=== PATIENT | female | born 1990 | race Caucasian/White ===

== ENCOUNTER 2018-09-21 22:03 | Emergency (ER) | payer SELFPAY ==
[2018-09-21 22:05] VITALS: BP 135/81; PULSE 95; RESP 18; TEMP 36.7; O2SAT 99; BMI 25.7
[2018-09-21 22:20] VITALS: BP 120/75; PULSE 84; RESP 17; O2SAT 98
--- NOTE | 2018-09-21 22:33 | ED.VISSUMM ---
- ER Visit Summary Date of Service: 09/21/18 Chief Complaint: Paresthesias History of Present Illness: The patient is a 28 F who states that after lunch today she developed tingling/numbness in her lower face bilaterally and left arm. She states that around 1900 hrs. it got worse. By where she means more intense. She denies any muscle spasms or weakness. No speech difficulties. No headaches. She is on Topamax. She takes this for bipolar disorder. The patient states she recently was on amoxicillin for a dental issue and that ended on Friday. On Friday she drank alcohol and became intoxicated. She denies any injuries that she is aware of. She is worried about a possible interaction between the 2 medications and alcohol. She denies any difficulties in the past with electrolyte imbalance. Physical Examination: Afebrile vital signs are stable Gen: Well-nourished well-developed Head: Normocephalic atraumatic Eyes: Perrl EOMI ENT: TMs clear no rhinorrhea moist mucous membranes Neck: Supple no lymphadenopathy no JVD nontender CVS: Regular rate rhythm no murmurs normal S1-S2 Respiratory: No distress clear to auscultation bilaterally chest nontender Abdomen: Soft nontender nondistended normal bowel sounds no masses Back: Nontender Extremity: Nontender no edema Skin: Normal color no rash Neuro: alert orientated ?3 CN II-XII intact normal strength reflexes gait cerebellar she reports decreased sensation of the left arm and lower mandibular region bilaterally Psych: Blunted affect normal mood Test Results: CBC is normal. Potassium is 3.2. Calcium 8.1. Not . Alcohol is negative. Liver enzymes are negative. Emergency Department Course and Treatment: It has been observed on the monitor. She is in a normal sinus rhythm. Patient received oral potassium. We will place her on 2 additional days of potassium. She is to follow-up with her primary care physician. I do not see evidence of stroke or other acute emergency would require hospitalization. Impression: 1. Facial paresthesias 2. Left arm paresthesias This note was generated with [employer] software. It may contain incorrect words, spelling, and punctuation that were not noted in review of the chart prior to signing ED Disposition - Plan for ED Patient: Disposition: Home or Assisted Living Chief Complaint: Numb/Ting Instructions: ED Paraesthesias, Discharge Instructions for Hypokalemia Prescriptions: Potassium Chloride [K-Dur] 20 meq PO DAILY #3 tab Referrals: Tangela Brito DO [Primary Care Provider] - (call in am to arrange follow up)
[2018-09-21 23:00] LABS: Internal QC Validated? YES +Cl - CLEAR BKGD; Pregnancy, Urine Negative Negative
[2018-09-21 23:03] LABS: Absolute Lymphocyte Count 3.69 X10^3/ul (0.83-4.51); Absolute Neutrophil Count 5.6 X10^3/uL (2.0-7.7); Basophil# 0.05 X10^3/uL; Basophil% 0.5 % (0-1); Eosinophil# 0.37 X10^3/uL; Eosinophils% 3.6 % (0-5); Hematocrit 40.3 % (37-47); Hemoglobin 13.6 g/dl (12.0-15.0); Lymphocyte # 3.69 X10^3/ul (4.0); Lymphocyte % 35.7 % (19-41); Mean Corp Hgb Conc 33.7 g/gl (32-36); Mean Corpuscular Volume 94.8 fL (81-99); Monocyte% 5.8 % (0-10); Neutrophil % 54.2 % (47-70); Platelet Count 244 K/mm3 (150-450); RBC Distribution Width CV 13.1 % (11.6-14.6); RBC Distribution Width SD 44.6 fl (35.1-43.9); Red Blood Count 4.25 M/mm3 (4.2-5.4); White Blood Count 10.3 K/mm3 (4.4-11.0)
[2018-09-21 23:06] LABS: POSITIVE COUNT NO; POSITIVE DIFFERENTIAL NO; POSITIVE MORPHOLOGY NO
[2018-09-21 23:32] LABS: Alcohol, Blood (Medical)-Serum < 3.0 mg/dL
[2018-09-21 23:36] LABS: ALB/GLOB Ratio 1.3 RATIO (0.9-2.4); AST(SGOT) 14 U/L (15-37); Alanine Aminotransfer ALT/SGPT 18 U/L (13-56); Albumin, Serum 3.7 g/dL (3.2-5.0); Alkaline Phosphatase 38 U/L (45-117); Anion Gap 7 (5-15); BUN 10 mg/dL (7-18); BUN/Creat Ratio 12.6 RATIO (10-20); Calcium,Total 8.1 mg/dL (8.5-10.1); Chloride 110 mmol/L (98-107); Creatinine, Serum 0.79 mg/dL (0.55-1.02); EST Glomerular Filtration Rate 92 mL/min (>60); Est Glom Filt Rate - Afr Amer 112 mL/min (>60); Estimated Creatinine Clearance 96.25 ml/min; Globulin 2.8 g/dL (2.2-4.2); Glucose 95 mg/dL (74-106); Potassium 3.2 mmol/L (3.5-5.1); Protein, Total 6.5 g/dL (6.4-8.2); Sodium Level 140 mmol/L (136-145)
[2018-09-21 23:42] VITALS: BP 111/78; PULSE 74; RESP 16; TEMP 36.6
--- OUTSIDE RECORDS SUMMARY | 2018-12-24 10:36 | XMS RPT_ITS ---
:1990 Author Organization OHIP Care Team Providers Name Role Phone Tangela Brito Primary Care Unavailable Martin Loaiza Attending Unavailable Tangela Brito Primary Care Unavailable Que Callahan Attending Unavailable PROBLEMS PROBLEMS No Problem Records FoundPROCEDURES PROCEDURES No Procedure Records FoundRESULTS RESULTS 12 LEAD ELECTROCARDIOGRAM Observed: 09/25/2018 Status: F Source: [place] 1:55 PM [facility] REPOSITORY [facility] Cardiovascular Services [address] [place] [address] 12 Lead EKG 09/23/18 1223 MR#: [id number] Acct: [id number] Name: DK PENA Rep #: [id number] : 1990 28 From: Dieter Clements MD Attending Dr: Status: DEP ER Ordering Dr: Que Callahan MD Date: 09/23/18 Location: ED Sex: F C Admitted: Test Reason : MEDICAL CLEARANCE Blood Pressure : / mmHG Vent. Rate : 061 BPM Atrial Rate : 061 BPM P-R Int : 174 ms QRS Dur : 092 ms QT Int : 386 ms P-R-T Axes : 072 083 034 degrees QTc Int : 388 ms Sinus rhythm with marked sinus arrhythmia Otherwise normal ECG Confirmed by TYREE GONZALEZ, DIETER ([id number]), research editor REJI SANTA ([id number]) on 09/25/2018 1:54:49 PM Referred By: MELANIA Confirmed By:DIETER CLEMENTS MD 09/25/18 1354 Date Dieter Clements MD CC: Que Callahan MD; Tangela Brito DO Signed LIPID PANEL Collected: 09/24/2018 Status: F Source: [facility] 5:42 AM SYSTEM REPOSITORY TYPE CODE TESTS RESULT OUT OF REFERENCE UNITS RANGE LAB 3CHOL < 200 mg/dL Cholesterol Normal 117 LAB 3TRIG <150 mg/dL Triglyceride Normal 120 LAB HDLC 40-60 mg/dL Low HDL Cholesterol 39 LAB LDL4 <100 mg/dL Low Density Normal Lipoprotein 54 LAB CHLHD NA Chol/HDL 3 Result Comment: Ref Range: < 3 Low Risk for CHD 3-6 Mod Risk for CHD > 6 High Risk for CHD Performed By: #### LIPD2, HA1C2 #### [email or web address] [address] [place] [id number] HEMOGLOBIN A1C Collected: 09/24/2018 Status: F Source: [facility] 5:42 AM SYSTEM REPOSITORY TYPE CODE TESTS RESULT OUT OF RANGE REFERENCE UNITS LAB A1C2 4.0-5.7 % Normal Hemoglobin A1C 5.5 Result Comment: --HgbA1C levels may not be accurate in patients who have renal disease, received recent blood transfusions, are anemic, or who have dyshemoglobinemia. LAB EAG2 mg/dL Estimated Avg Glucose 111 Performed By: #### LIPD2, HA1C2 #### [email or web address] [address] [place] [id number] DISCHARGE INSTRUCTION Observed: 09/23/2018 Status: F Source: [place] 4:47 PM [facility] REPOSITORY [facility] Medical Records Department [address] [place] [address] Discharge Instruction 09/23/18 1119 MR#: [id number] Acct: [id number] Name: DK PENA Rep #: [id number] : 1990 28 From: Que Callahan MD PCP: Tangela Brito DO Status: REG ER ED Disposition - Plan for ED Patient: Disposition: Home or Assisted Living Chief Complaint: Suicidal Instructions: ED Depression Referrals: Counseling,Center [GROUP OF PHYSICIANS] - As soon as possible Additional Instructions: Follow-up with counseling center. Continue your current medications. Return to the ER if you are feeling worse or that you may harm yourself or others. What to do if you have Problems For any increased pain, shortness of breath, bleeding, nausea or vomiting, chest pain, or any unexpected problems, contact your Primary Care Provider. Call [facility] ([phone]) or report to the closest Emergency Room. Call 911 if necessary. 09/23/18 1647 <Electronically signed by Que Callahan MD> Date Que Callahan MD Cosigner Signature (If Indicated): Date CC: Tangela Brito DO EMERGENCY DEPARTMENT Observed: 09/23/2018 Status: F Source: [place] SUMMARY 4:47 PM [facility] REPOSITORY [facility] Medical Records Department [address] [place] [address] Emergency Department Summary 09/23/18 0913 MR#: [id number] Acct: [id number] Name: DK PENA Rep #: [id number] : 1990 28 From: Que Callahan MD PCP: Tangela Brito DO Status: REG ER - ER Visit Summary Date of Service: 09/23/18 Chief Complaint: Suicidal and depressed History of Present Illness: The patient is a 28 F history of depression and bipolar disorder. Sees a therapist and also gets her prescriptions from the counseling center. Patient states she has had depression for some time. She is currently single with her 6-year-old son at home. She states she has been more depressed lately and having suicidal thoughts. She denies any attempt. She has been hospitalized in the past to psychiatric facilities but not in the last 2-1/2 years. Physical Examination: Well-appearing young female. No acute distress. Calm and cooperative. HEENT exam unremarkable. Neck nontender no signs of trauma. Lungs clear to auscultation bilaterally. Heart regular rate and rhythm no murmur. Abdomen soft and nontender. Patient is moving all 4 extremities. Neurovascular intact. Nontender. No signs of trauma. No track jaramillo. Back nontender. Skin unremarkable. Neurologically awake and alert with no focal motor deficits. Test Results: CBC normal. Chemistries normal. test negative. Tox screen negative. Alcohol negative. Emergency Department Course and Treatment: ED mental health screening labs and crisis evaluation. Patient is doing well on repeat exam. Counseling center personnel was currently in her room at 11:18 and talking with her. Treatment Plan: Counseling center evaluate the patient. She will not contract for safety with them. He really cannot come up with a good safety plan for her ordered but they believe that she would follow through with. They do believe she needs to be hospitalized. They are putting other arrangements to transfer to psychiatric facility. Disposition: Transfer to psychiatric facility for admission and evaluation. Impression: Acute on chronic depression Suicidal ideation History of bipolar disorder This note was generated with Giferent dictation software. It may contain incorrect words, spelling, and punctuation that were not noted in review of the chart prior to signing ED Disposition - Plan for ED Patient: Disposition: Home or Assisted Living Chief Complaint: Suicidal Instructions: ED Depression Referrals: Counseling,Center [GROUP OF PHYSICIANS] - As soon as possible Additional Instructions: Follow-up with counseling center. Continue your current medications. Return to the ER if you are feeling worse or that you may harm yourself or others. What to do if you have Problems For any increased pain, shortness of breath, bleeding, nausea or vomiting, chest pain, or any unexpected problems, contact your Primary Care Provider. Call [facility] ([phone]) or report to the closest Emergency Room. Call 911 if necessary. 09/23/18 5554 <Electronically signed by Que Callahan MD> Date Que Callahan MD Cosigner Signature (If Indicated): Date CC: Tangela Brito DO CBC W/DIFF, AUTOMATED Collected: 09/23/2018 Status: F Source: [place] 9:30 AM [facility] REPOSITORY TYPE CODE TESTS RESULT OUT OF RANGE REFERENCE UNITS LAB L100.1000 4.4-11.0 K/mm3 Normal WBC 7.7 LAB L100.1200 4.2-5.4 M/mm3 Normal RBC 4.58 LAB L100.1300 12.0-15.0 g/dl Normal HGB 14.6 LAB L100.1400 37-47 % Normal HCT 44.1 LAB L100.1500 81-99 fL Normal MCV 96.3 LAB L100.1600 27.0-32.0 pg Normal MCH 31.9 LAB L100.1700 32-36 g/gl Normal MCHC 33.1 LAB L100.1810 11.6-14.6 % Normal RDW CV 13.0 LAB L100.1820 35.1-43.9 fl High RDW SD 44.9 LAB L100.1900 150-450 K/mm3 Normal PLT 242 LAB L100.2000 6.2-12.0 fl Normal MPV 9.0 LAB L100.2100 47-70 % Normal NEUT% 65.8 LAB L100.2200 19-41 % Normal LY% 24.5 LAB L100.2300 0-10 % Normal MONO% 5.6 LAB L100.2400 0-5 % Normal EO% 3.4 LAB L100.2500 0-1 % Normal BASO% 0.6 LAB L100.2550 0.0-0.9 % Normal IM GRAN % 0.100 Result Comment: IG% - Immature Granulocytes (promyelocytes, myelocytes and metamyelocytes) > 1% indicates that a LEFT SHIFT is Present. LAB L100.2620 2.0-7.7 X10 3/uL Normal Absolute Neut 5.1 LAB L100.2720 0.83-4.51 X10 3/ul Normal Absolute Lymph 1.89 Performed By: #### L100.0100 #### [facility] [address] [place], [address] BASIC METABOLIC Collected: 09/23/2018 Status: F Source: [place] PROFILE (BMP) 9:30 AM [facility] REPOSITORY TYPE CODE TESTS RESULT OUT OF RANGE REFERENCE UNITS LAB L501.0100 74-106 mg/dL Normal GLU 82 Result Comment: Please note revised GLUCOSE reference range effective 2017. LAB L501.1000 7-18 mg/dL Normal BUN 10 LAB L501.1100 0.55-1.02 mg/dL Normal CREAT,SERUM 0.88 Result Comment: The validity of the calculated GFR AND GFRAA in patients over 70 years has not been determined. Clinical correlation is essential. LAB L501.1110 >60 mL/min Normal EST GFR 82 Result Comment: Non- GFR Calc LAB L501.1115 >60 mL/min Normal EST GFR - AA 99 Result Comment: GFR Calc LAB L501.1255 ml/min Normal Estimated CRCL 86.41 LAB L501.1300 10-20 RATIO Normal BUN/CRE 11.4 LAB L501.2200 8.5-10 mg/dL Normal .1 CA 8.7 LAB L501.5300 136-14 mmol/L Normal 5 NA 143 LAB L501.5600 3.5-5. mmol/L Normal 1 K 3.9 LAB L501.5900 98-107 mmol/L High CL 114 LAB L501.6100 21.0-3 mmol/L Normal 2.0 CO2 21.0 LAB L501.6200 5-15 Normal GAP 8 Performed By: #### L500.2500 #### [facility] [address] [place], [place], [address] ALCOHOL, BLOOD Collected: 09/23/2018 Status: F Source: [place] (MEDICAL)-SERUM 9:30 AM [facility] REPOSITORY TYPE CODE TESTS RESULT OUT OF RANGE REFERENCE UNITS LAB L501.9100 mg/dL Normal SERUM 5.0 ETOH Result Comment: The serum:whole blood ethanol ratio is approximately 1.14 and varies slightly with hematocrit. Medical Alcohol reference interval and critical value in non-tolerant individuals; 50 - 100 Impairment 100 Intoxication 100 - 250 Severe Poisoning 250 - 400 Deep/possible fatal coma Performed By: #### L501.9100 #### [facility] [address] [place], [place], [address] ,SERUM,HCG QUALI. Collected: Status: F Source: [place] 09/23/2018 9:30 AM [facility] REPOSITORY TYPE CODE TESTS RESULT OUT OF REFERENCE UNITS RANGE LAB L700.6700 =>Qualitative mIU/mL Normal HCG Qual < 1 triggr LAB L700.7000 0-9 Nonpreg Negative Normal HCGSQUAL NEGATIVE Performed By: #### L700.6800 #### [facility] [address] [place], [place], [address] LIVER PROFILE Collected: 09/23/2018 Status: F Source: [place] 9:30 AM [facility] REPOSITORY Order Comment: Order Date: 09/23/18 TYPE CODE TESTS RESULT OUT OF RANGE REFERENCE UNITS LAB L501.1500 6.4-8.2 g/dL Normal T PROT 7.2 LAB L501.1800 3.2-5.0 g/dL Normal ALB 4.0 LAB L501.1950 2.2-4.2 g/dL Normal GLOB 3.2 LAB L501.4100 15-37 U/L Low AST 11 LAB L501.4305 45-117 U/L Low ALK P 44 LAB L501.4405 13-56 U/L Normal ALT 17 LAB L501.4600 0.20-1.00 mg/dL Normal T BILI 0.30 LAB L501.4700 0.00-0.30 mg/dL Normal D BILI 0.12 Performed By: #### L500.3400 #### [facility] [address] [place], [place], [address] URINE DRUG SCREEN Collected: 09/23/2018 Status: F Source: [place] (MAG) 9:20 AM [facility] REPOSITORY TYPE CODE TESTS RESULT OUT OF RANGE REFERENCE UNITS LAB L505.0075 TO BE Normal CONFIRMED Result Comment: CONFIRMATORY TESTING FOR ALL POSITIVE URINE DRUG SCREEN RESULTS WILL ONLY BE SENT OUT UPON PHYSICIAN ORDER. VISTA Urine Drug Screen methods provide only preliminary analytical test results. A more specific alternate chemical method must be used in order to obtain a confirmed analytical result. Gas chromatography/mass spectrometery (GC/MS) is the preferred confirmatory method. Clinical consideration and professional judgement should be applied to any drug of abuse test result, particularly when preliminary positive results are used. URINE TCA TESTING MUST BE ORDERED SEPARATELY. USE TEST MNEMONIC: [facility] LAB L505.5005 VISTA UDS PH 6 Normal LAB L505.5015 <1000 ng/mL AMPHETAMINES Normal NEGATIVE LAB L505.5025 < 200 ng/mL BARBITIURATES Normal NEGATIVE LAB L505.5035 < 200 ng/mL BENZODIAZIPINE Normal NEGATIVE LAB L505.5045 < 300 ng/mL COCAINE Normal NEGATIVE LAB L505.5055 < 500 ng/mL ECSTACY Normal NEGATIVE LAB L505.5065 < 300 ng/mL METHADONE Normal NEGATIVE LAB L505.5075 < 300 ng/mL OPIATES Normal NEGATIVE LAB L505.5085 < 25 ng/mL PCP Normal NEGATIVE LAB L505.5095 < 50 ng/mL THC Normal NEGATIVE Performed By: #### L505.5000 #### [facility] [address] [place], [address] URINALYSIS, COMPLETE Collected: 09/23/2018 Status: F Source: [place] 9:20 AM [facility] REPOSITORY Order Comment: Order Date: 09/23/18 How was Urine Obtained? CLEAN CATCH TYPE CODE TESTS RESULT OUT OF RANGE REFERENCE UNITS LAB L400.3000 Yellow COLOR Normal Straw LAB L400.3050 Clear Normal CLARITY Clear LAB L400.3200 Normal mg/dl Normal GLUCOSE, UR Normal LAB L400.3300 Negative mg/dL Normal BILIRUBIN URINE Negative LAB L400.3400 Negative mg/dl Normal KETONE UR Negative LAB L400.3465 1.002-1.030 Normal SP.GR. DIPSTX 1.010 LAB L400.3550 5.0 - 8.0 pH UR Normal 6.0 LAB L400.3600 Negative mg/dl PROT Normal DIPSTX Negative LAB L400.3700 Normal mg/dl Normal UROBILI Normal LAB L400.3750 Negative Normal NITRITE UR Negative LAB L400.3780 Negative /ul Normal OCCULT BLOOD-UR Negative LAB L400.3800 Negative /ul LEUK Normal ESTERASE Negative LAB L400.4050 0-5 /hpf WBC 0 Normal SEEN LAB L400.4100 0-5 /hpf 0 Normal RBC-UA SEEN LAB L400.4150 5-10 /hpf SQUAM 0 Normal EPI SEEN LAB L400.4300 None Seen /hpf 0 Normal BACTERIA SEEN LAB L400.4350 <or=2+ /hpf 0 Normal MUCUS, URINE SEEN Performed By: #### L400.0001 #### [facility] [address] [place], [address] EMERGENCY DEPARTMENT Observed: 09/22/2018 Status: F Source: [place] SUMMARY 12:00 AM [facility] REPOSITORY [facility] Medical Records Department [address] [place] [address] Emergency Department Summary 09/21/18 2233 MR#: [id number] Acct: [id number] Name: DK PENA Rep #: [id number] : 1990 28 From: Martin Loaiza DO PCP: Tangela Brito DO Status: DEP ER - ER Visit Summary Date of Service: 09/21/18 Chief Complaint: Paresthesias History of Present Illness: The patient is a 28 F who states that after lunch today she developed tingling/numbness in her lower face bilaterally and left arm. She states that around 1900 hrs. it got worse. By where she means more intense. She denies any muscle spasms or weakness. No speech difficulties. No headaches. She is on Topamax. She takes this for bipolar disorder. The patient states she recently was on amoxicillin for a dental issue and that ended on Friday. On Friday she drank alcohol and became intoxicated. She denies any injuries that she is aware of. She is worried about a possible interaction between the 2 medications and alcohol. She denies any difficulties in the past with electrolyte imbalance. Physical Examination: Afebrile vital signs are stable Gen: Well-nourished well-developed Head: Normocephalic atraumatic Eyes: Perrl EOMI ENT: TMs clear no rhinorrhea moist mucous membranes Neck: Supple no lymphadenopathy no JVD nontender CVS: Regular rate rhythm no murmurs normal S1-S2 Respiratory: No distress clear to auscultation bilaterally chest nontender Abdomen: Soft nontender nondistended normal bowel sounds no masses Back: Nontender Extremity: Nontender no edema Skin: Normal color no rash Neuro: alert orientated 3 CN II-XII intact normal strength reflexes gait cerebellar she reports decreased sensation of the left arm and lower mandibular region bilaterally Psych: Blunted affect normal mood Test Results: CBC is normal. Potassium is 3.2. Calcium 8.1. Not . Alcohol is negative. Liver enzymes are negative. Emergency Department Course and Treatment: It has been observed on the monitor. She is in a normal sinus rhythm. Patient received oral potassium. We will place her on 2 additional days of potassium. She is to follow-up with her primary care physician. I do not see evidence of stroke or other acute emergency would require hospitalization. Impression: 1. Facial paresthesias 2. Left arm paresthesias This note was generated with Giferent dictation software. It may contain incorrect words, spelling, and punctuation that were not noted in review of the chart prior to signing ED Disposition - Plan for ED Patient: Disposition: Home or Assisted Living Chief Complaint: Numb/Ting Instructions: ED Paraesthesias, Discharge Instructions for Hypokalemia Prescriptions: Potassium Chloride [K-Dur] 20 meq PO DAILY #3 tab Referrals: Tangela Brito DO [Primary Care Provider] - (call in am to arrange follow up) What to do if you have Problems For any increased pain, shortness of breath, bleeding, nausea or vomiting, chest pain, or any unexpected problems, contact your Primary Care Provider. Call [facility] ([phone]) or report to the closest Emergency Room. Call 911 if necessary. 09/22/18 0000 <Electronically signed by Martin Loaiza DO> Date Martin Loaiza DO Cosigner Signature (If Indicated): Date CC: Tangela Brito DO COMPREHENSIVE METABOLIC Collected: 09/21/2018 Status: F Source: [place] NGHIA 11:15 PM [facility] REPOSITORY TYPE CODE TESTS RESULT OUT OF RANGE REFERENCE UNITS LAB L501.0100 74-106 mg/dL Normal GLU 95 Result Comment: Please note revised GLUCOSE reference range effective 2017. LAB L501.1000 7-18 mg/dL Normal BUN 10 LAB L501.1100 0.55-1.02 mg/dL Normal CREAT,SERUM 0.79 Result Comment: The validity of the calculated GFR AND GFRAA in patients over 70 years has not been determined. Clinical correlation is essential. LAB L501.1110 >60 mL/min Normal EST GFR 92 Result Comment: Non- GFR Calc LAB L501.1115 >60 mL/min Normal EST GFR - AA 112 Result Comment: GFR Calc LAB L501.1255 ml/min Normal Estimated CRCL 96.25 LAB L501.1300 10-20 RATIO Normal BUN/CRE 12.6 LAB L501.1500 6.4-8. g/dL Normal 2 T PROT 6.5 LAB L501.1800 3.2-5. g/dL Normal 0 ALB 3.7 LAB L501.1950 2.2-4. g/dL Normal 2 GLOB 2.8 LAB L501.2000 0.9-2. RATIO Normal 4 A/G 1.3 LAB L501.2200 8.5-10 mg/dL Low .1 CA 8.1 LAB L501.4100 15-37 U/L Low AST 14 LAB L501.4305 45-117 U/L Low ALK P 38 LAB L501.4405 13-56 U/L Normal ALT 18 LAB L501.4600 0.20-1 mg/dL Normal .00 T BILI 0.20 LAB L501.5300 136-14 mmol/L Normal 5 NA 140 LAB L501.5600 3.5-5. mmol/L Low 1 K 3.2 LAB L501.5900 98-107 mmol/L High CL 110 LAB L501.6100 21.0-3 mmol/L Normal 2.0 CO2 23.0 LAB L501.6200 5-15 Normal GAP 7 Performed By: #### L500.4050 #### [facility] [address] [place], [place], [address] ,URINE Collected: 09/21/2018 Status: F Source: [place] 10:45 PM [facility] REPOSITORY TYPE CODE TESTS RESULT OUT OF REFERENCE UNITS RANGE LAB L400.8000 Negative Normal HCGUQUAL Negative Result Comment: Very dilute urine specimens, as indicated by a low specific gravity, may not contain home furnishings sales representative levels of hCG. If is still suspected, a first morning urine specimen should be collected 48 hours later and tested. Performed By: #### L400.7600 #### [facility] [address] [place], [place], [address] CBC W/DIFF, AUTOMATED Collected: 09/21/2018 Status: F Source: [place] 10:45 PM [facility] REPOSITORY TYPE CODE TESTS RESULT OUT OF RANGE REFERENCE UNITS LAB L100.1000 4.4-11.0 K/mm3 Normal WBC 10.3 LAB L100.1200 4.2-5.4 M/mm3 Normal RBC 4.25 LAB L100.1300 12.0-15.0 g/dl Normal HGB 13.6 LAB L100.1400 37-47 % Normal HCT 40.3 LAB L100.1500 81-99 fL Normal MCV 94.8 LAB L100.1600 27.0-32.0 pg Normal MCH 32.0 LAB L100.1700 32-36 g/gl Normal MCHC 33.7 LAB L100.1810 11.6-14.6 % Normal RDW CV 13.1 LAB L100.1820 35.1-43.9 fl High RDW SD 44.6 LAB L100.1900 150-450 K/mm3 Normal PLT 244 LAB L100.2000 6.2-12.0 fl Normal MPV 9.0 LAB L100.2100 47-70 % Normal NEUT% 54.2 LAB L100.2200 19-41 % Normal LY% 35.7 LAB L100.2300 0-10 % Normal MONO% 5.8 LAB L100.2400 0-5 % Normal EO% 3.6 LAB L100.2500 0-1 % Normal BASO% 0.5 LAB L100.2550 0.0-0.9 % Normal IM GRAN % 0.200 Result Comment: IG% - Immature Granulocytes (promyelocytes, myelocytes and metamyelocytes) > 1% indicates that a LEFT SHIFT is Present. LAB L100.2620 2.0-7.7 X10 3/uL Normal Absolute Neut 5.6 LAB L100.2720 0.83-4.51 X10 3/ul Normal Absolute Lymph 3.69 Performed By: #### L100.0100, L501.9100 #### [facility] [address] [place], [place], [address] ALCOHOL, BLOOD Collected: 09/21/2018 Status: F Source: [place] (MEDICAL)-SERUM 10:45 PM [facility]OS[facility]ITAL REPOSITORY TYPE CODE TESTS RESULT OUT OF RANGE REFERENCE UNITS LAB L501.9100 mg/dL Normal SERUM < 3.0 ETOH Result Comment: The serum:whole blood ethanol ratio is approximately 1.14 and varies slightly with hematocrit. Medical Alcohol reference interval and critical value in non-tolerant individuals; 50 - 100 Impairment 100 Intoxication 100 - 250 Severe Poisoning 250 - 400 Deep/possible fatal coma Performed By: #### L100.0100, L501.9100 #### [facility] [address] [place], [address] ALLERGIES ALLERGIES DATE TYPE / CODE NAME / CODE REACTION SEVERITY SOURCE 09/23/2018 Drug nickel/F0060 Rash Unknown [facility] Allergy/4160 48743([facility] 94223(SNOMED ) Repository CT) ENCOUNTERS ENCOUNTERS ADMIT/DISCHARGE ACCOUNT ADMITTING ENCOUNTER LOCATION SOURCE NUMBER CLASS 09/23/2018/ [id number] Emergency [address] ing:ED Repository 09/21/2018/ [id number] Emergency [address] ing:ED Repository PAYERS PAYERS ENCOUNTER GUARANTOR PAYER SUBSCRIBER SOURCE 09/23/2018 DK J Primary NOT GIVENUNK Ev[place]y [id number] Insurance:SELF PAY [facility], Number: Effective Repository [place] [id number]: Date:2018-09-23 () 09/21/2018 DK Axel Primary NOT GIVENUNK [place] [id number] Insurance:SELF PAY [facility], Number: Effective Repository [place] [id number]: Date:2018-09-21 ()
== END 2018-09-21 23:57 | disposition home or self-care (01) ==
PROVIDERS: Emergency Provider Emergency Medicine; Family Provider Family Medicine; PCP Family Medicine
DX: R20.2 Paresthesia of skin (principal); E87.6 Hypokalemia; F31.9 Bipolar disorder, unspecified; Z79.899 Other long term (current) drug therapy; Z72.0 Tobacco use
CPT/HCPCS: 80053; 80320; 81025; 85025; 99284; A4216; G0480

== ENCOUNTER 2018-09-23 08:55 | Emergency (ER) | payer SELFPAY ==
[2018-09-23] VITALS (12 sets, daily range): BP systolic 100–118; BP diastolic 66–82; PULSE 78–80; RESP 12–17; TEMP 37–37.2; O2SAT 98–100; BMI 26.2
--- NOTE | 2018-09-23 09:13 | ED.VISSUMM ---
- ER Visit Summary Date of Service: 09/23/18 Chief Complaint: Suicidal and depressed History of Present Illness: The patient is a 28 F history of depression and bipolar disorder. Sees a therapist and also gets her prescriptions from the counseling center. Patient states she has had depression for some time. She is currently single with her 6-year-old son at home. She states she has been more depressed lately and having suicidal thoughts. She denies any attempt. She has been hospitalized in the past to psychiatric facilities but not in the last 2-1/2 years. Physical Examination: Well-appearing young female. No acute distress. Calm and cooperative. HEENT exam unremarkable. Neck nontender no signs of trauma. Lungs clear to auscultation bilaterally. Heart regular rate and rhythm no murmur. Abdomen soft and nontender. Patient is moving all 4 extremities. Neurovascular intact. Nontender. No signs of trauma. No track jaramillo. Back nontender. Skin unremarkable. Neurologically awake and alert with no focal motor deficits. Test Results: CBC normal. Chemistries normal. test negative. Tox screen negative. Alcohol negative. Emergency Department Course and Treatment: ED mental health screening labs and crisis evaluation. Patient is doing well on repeat exam. Counseling center personnel was currently in her room at 11:18 and talking with her. Treatment Plan: Counseling center evaluate the patient. She will not contract for safety with them. He really cannot come up with a good safety plan for her ordered but they believe that she would follow through with. They do believe she needs to be hospitalized. They are putting other arrangements to transfer to psychiatric facility. Disposition: Transfer to psychiatric facility for admission and evaluation. Impression: Acute on chronic depression Suicidal ideation History of bipolar disorder This note was generated with [employer] dictation software. It may contain incorrect words, spelling, and punctuation that were not noted in review of the chart prior to signing ED Disposition - Plan for ED Patient: Disposition: Home or Assisted Living Chief Complaint: Suicidal Instructions: ED Depression Referrals: Counseling,Center [GROUP OF PHYSICIANS] - As soon as possible Additional Instructions: Follow-up with counseling center. Continue your current medications. Return to the ER if you are feeling worse or that you may harm yourself or others.
--- NOTE | 2018-09-23 09:17 | ED.DCSUM_ITS ---
- ER Visit Summary Date of Service: 09/23/18 Chief Complaint: Suicidal and depressed History of Present Illness: The patient is a 28 F history of depression and bipolar disorder. Sees a therapist and also gets her prescriptions from the counseling center. Patient states she has had depression for some time. She is currently single with her 6-year-old son at home. She states she has been more depressed lately and having suicidal thoughts. She denies any attempt. She has been hospitalized in the past to psychiatric facilities but not in the last 2- 1/2 years. Physical Examination: Well-appearing young female. No acute distress. Calm and cooperative. HEENT exam unremarkable. Neck nontender no signs of trauma. Lungs clear to auscultation bilaterally. Heart regular rate and rhythm no murmur. Abdomen soft and nontender. Patient is moving all 4 extremities. Neurovascular intact. Nontender. No signs of trauma. No track jaramillo. Back nontender. Skin unremarkable. Neurologically awake and alert with no focal motor deficits. Test Results: CBC normal. Chemistries normal. test negative. Tox screen negative. Alcohol negative. Emergency Department Course and Treatment: ED mental health screening labs and crisis evaluation. Patient is doing well on repeat exam. Counseling center personnel was currently in her room at 11:18 and talking with her. Treatment Plan: Counseling center evaluate the patient. She will not contract for safety with them. He really cannot come up with a good safety plan for her ordered but they believe that she would follow through with. They do believe she needs to be hospitalized. They are putting other arrangements to transfer to psychiatric facility. Disposition: Transfer to psychiatric facility for admission and evaluation. Impression: Acute on chronic depression Suicidal ideation History of bipolar disorder This note was generated with Hudd[employer] dictation software. It may contain incorrect words, spelling, and punctuation that were not noted in review of the chart prior to signing ED Disposition - Plan for ED Patient: Disposition: Home or Assisted Living Chief Complaint: Suicidal Instructions: ED Depression Referrals: Counseling,Center [GROUP OF PHYSICIANS] - As soon as possible Additional Instructions: Follow-up with counseling center. Continue your current medications. Return to the ER if you are feeling worse or that you may harm yourself or others.
--- NOTE | 2018-09-23 09:19 | ED.RN ---
LEONELA CALLED FROM [facility]. WILL BE HEADING OVER
--- NOTE | 2018-09-23 09:27 | ED.RN ---
LEONELA CALLED FROM [facility] AND SAID SHE HAD AN APPT BUT WILL BE OVER WITHIN THE NEXT HOUR
[2018-09-23 09:45] LABS: Amphetamine Urine VISTA NEGATIVE (<1000 ng/mL); Barbiturate Urine VISTA NEGATIVE (< 200 ng/mL); Benzodiazepine Urine VISTA NEGATIVE (< 200 ng/mL); Cocaine Urine VISTA NEGATIVE (< 300 ng/mL); Ecstacy Urine VISTA NEGATIVE (< 500 ng/mL); Methadone Urine VISTA NEGATIVE (< 300 ng/mL); PCP Urine VISTA NEGATIVE (< 25 ng/mL); THC Urine VISTA NEGATIVE (< 50 ng/mL); Vista UDS pH Range 6
[2018-09-23 09:49] LABS: Absolute Lymphocyte Count 1.89 X10^3/ul (0.83-4.51); Absolute Neutrophil Count 5.1 X10^3/uL (2.0-7.7); Basophil# 0.05 X10^3/uL; Basophil% 0.6 % (0-1); Eosinophil# 0.26 X10^3/uL; Eosinophils% 3.4 % (0-5); Hematocrit 44.1 % (37-47); Hemoglobin 14.6 g/dl (12.0-15.0); Lymphocyte # 1.89 X10^3/ul (4.0); Lymphocyte % 24.5 % (19-41); Mean Corp Hgb Conc 33.1 g/gl (32-36); Mean Corpuscular Hgb 31.9 pg (27.0-32.0); Mean Corpuscular Volume 96.3 fL (81-99); Monocyte# 0.43 X10^3/uL; Monocyte% 5.6 % (0-10); Neutrophil # 5.07 X10^3/uL (2.7-7.7); Neutrophil % 65.8 % (47-70); Platelet Count 242 K/mm3 (150-450); RBC Distribution Width SD 44.9 fl (35.1-43.9); Red Blood Count 4.58 M/mm3 (4.2-5.4); White Blood Count 7.7 K/mm3 (4.4-11.0)
[2018-09-23 09:51] LABS: POSITIVE COUNT NO; POSITIVE DIFFERENTIAL NO; POSITIVE MORPHOLOGY NO
[2018-09-23 09:59] LABS: Anion Gap 8 (5-15); BUN 10 mg/dL (7-18); BUN/Creat Ratio 11.4 RATIO (10-20); Calcium,Total 8.7 mg/dL (8.5-10.1); Chloride 114 mmol/L (98-107); Creatinine, Serum 0.88 mg/dL (0.55-1.02); EST Glomerular Filtration Rate 82 mL/min (>60); Est Glom Filt Rate - Afr Amer 99 mL/min (>60); Estimated Creatinine Clearance 86.41 ml/min; Glucose 82 mg/dL (74-106); Potassium 3.9 mmol/L (3.5-5.1); Sodium Level 143 mmol/L (136-145)
[2018-09-23 10:35] LABS: Pregnancy, Serum, hCG Quali. NEGATIVE Negative (0-9 Nonpreg)
--- NOTE | 2018-09-23 11:19 | ED.DEP ---
ED Disposition - Plan for ED Patient: Disposition: Home or Assisted Living Chief Complaint: Suicidal Instructions: ED Depression Referrals: Counseling,Center [GROUP OF PHYSICIANS] - As soon as possible Additional Instructions: Follow-up with counseling center. Continue your current medications. Return to the ER if you are feeling worse or that you may harm yourself or others.
--- NOTE | 2018-09-23 11:57 | EKG12_ITS ---
Test Reason : MEDICAL CLEARANCE Blood Pressure : / mmHG Vent. Rate : 061 BPM Atrial Rate : 061 BPM P-R Int : 174 ms QRS Dur : 092 ms QT Int : 386 ms P-R-T Axes : 072 083 034 degrees QTc Int : 388 ms Sinus rhythm with marked sinus arrhythmia Otherwise normal ECG Confirmed by TYREE GONZALEZ, JORDAN ([id number]), photograph editor REJI SANTA ([id number]) on 09/25/2018 1:54:49 PM Referred By: MELANIA Confirmed By:JORDAN CLEMENTS MD
[2018-09-23 12:16] LABS: Bacteria 0 SEEN /hpf (None Seen); Mucous, Urine 0 SEEN /hpf (<or=2+); Red Blood Cells-Urine 0 SEEN /hpf (0-5); Squamous Epithelial Cells - UA 0 SEEN /hpf (5-10); White Blood Cells 0 SEEN /hpf (0-5)
[2018-09-23 12:28] LABS: Color, Urine Straw (Yellow); Glucose, Dipstick Normal (Normal); Ketone-Dipstick Negative (Negative); Leukocyte Esterase-Dipstick Negative /ul (Negative); Nitrite-Dipstick Negative (Negative); Occult Blood-Urine Negative /ul (Negative); Protein-Dipstick Negative (Negative); Urine Bilirubin Dipstick Negative (Negative); Urine Clarity Clear (Clear); Urine Urobilinogen Normal (Normal)
[2018-09-23 12:39] LABS: AST(SGOT) 11 U/L (15-37); Alanine Aminotransfer ALT/SGPT 17 U/L (13-56); Alkaline Phosphatase 44 U/L (45-117); Bilirubin, Direct 0.12 mg/dL (0.00-0.30); Globulin 3.2 g/dL (2.2-4.2); Protein, Total 7.2 g/dL (6.4-8.2)
--- NOTE | 2018-09-23 18:44 | ED.RN ---
PT TRANSFERRED WITH SHOES, BLUE JEANS, BRA, SWEATER, SOCKS, UNDERWEAR, HUNTER SHIRT, BLUE SHIRT, BLACK JACKET, AND HANDBAG.
--- OUTSIDE RECORDS SUMMARY | 2018-12-25 12:45 | XMS RPT_ITS ---
:1990 Author Organization OH[facility] Care Team Providers Name Role Phone Tangela Brito Primary Care Unavailable Martin Loaiza Attending Unavailable Tangela Brito Primary Care Unavailable Que Clalahan Attending Unavailable PROBLEMS PROBLEMS No Problem Records FoundPROCEDURES PROCEDURES No Procedure Records FoundRESULTS RESULTS 12 LEAD ELECTROCARDIOGRAM Observed: 09/25/2018 Status: F Source: [place] 1:55 PM [facility] Cardiovascular Services [address] [place] [address] 12 Lead EKG 09/23/18 1223 MR#: [id number] Acct: [id number] Name: DK PENA Rep #: [id number] : 1990 28 From: Dieter Clements MD [...] ECG Confirmed by TYREE GONZALEZ, DIETER ([id number]), communications editor REJI SANTA ([id number]) on 09/25/2018 1:54:49 PM Referred By: MELANIA Confirmed By:DIETER CLEMENTS MD 09/25/18 1354 Date Dieter Clements MD CC: Que Callahan MD; Tangela Brito DO Signed LIPID PANEL Collected: 09/24/2018 Status: F Source: [place] 5:42 AM SYSTEM REPOSITORY TYPE CODE TESTS [...] CHD Performed By: #### LIPD2, HA1C2 #### [facility] [address] [place] [phone] HEMOGLOBIN A1C Collected: 09/24/2018 Status: F Source: [place] 5:42 AM SYSTEM REPOSITORY TYPE CODE TESTS RESULT OUT OF RANGE REFERENCE UNITS LAB A1C2 4.0-5.7 % Normal Hemoglobin A1C 5.5 Result Comment: --HgbA1C levels may not be accurate in patients who have renal disease, received recent blood transfusions, are anemic, or who have dyshemoglobinemia. LAB EAG2 mg/dL Estimated Avg Glucose 111 Performed By: #### LIPD2, HA1C2 #### [facility] [address] [place] [phone] DISCHARGE INSTRUCTION Observed: 09/23/2018 Status: F Source: [place] 4:47 PM [facility] Medical Records Department [address] [place] [address] Discharge Instruction 09/23/18 1119 MR#: [id number] Acct: [id number] Name: DK PENA Rep #: [id number] : 1990 28 From: Que Callahan MD [...] your Primary Care Provider. Call [facility] ([phone]) or report to the closest Emergency Room. Call 911 if necessary. 09/23/18 1647 <Electronically signed by Que Callahan MD> Date Que Callahan MD Cosigner Signature (If Indicated): Date CC: Tangela Brito DO EMERGENCY DEPARTMENT Observed: 09/23/2018 Status: F Source: [place] SUMMARY 4:47 PM [facility] Medical Records Department [address] [place] [address] Emergency Department Summary 09/23/18 0913 MR#: [id number] Acct: [id number] Name: DK PENA Rep #: [id number] : 1990 28 From: Que Callahan MD [...] bipolar disorder This note was generated with IQcard dictation software. It may contain incorrect words, [...] problems, contact your Primary Care Provider. Call [facility] ([phone]) or report to the closest Emergency Room. Call 911 if necessary. 09/23/18 8336 <Electronically signed by Que Callahan MD> Date Que Callahan MD Cosigner Signature (If Indicated): Date CC: Tangela Brito DO CBC W/DIFF, AUTOMATED Collected: 09/23/2018 Status: F Source: [place] 9:30 AM [facility] TYPE CODE TESTS RESULT OUT OF [...] Lymph 1.89 Performed By: #### L100.0100 #### [facility] [address] [place], [address] BASIC METABOLIC Collected: 09/23/2018 Status: F Source: [place] PROFILE (BMP) 9:30 AM [facility] TYPE CODE TESTS RESULT OUT OF [...] GAP 8 Performed By: #### L500.2500 #### [facility] [address] [facility] [place], [place], [address] ALCOHOL, BLOOD Collected: 09/23/2018 Status: F Source: [place] (MEDICAL)-SERUM 9:30 AM [facility] TYPE CODE TESTS RESULT OUT OF [...] fatal coma Performed By: #### L501.9100 #### [facility] [address] [place], [place], [address] ,SERUM,HCG QUALI. Collected: Status: F Source: [place] 09/23/2018 9:30 AM [facility] TYPE CODE TESTS RESULT OUT OF REFERENCE UNITS RANGE LAB L700.6700 =>Qualitative mIU/mL Normal HCG Qual < 1 triggr LAB L700.7000 0-9 Nonpreg Negative Normal HCGSQUAL NEGATIVE Performed By: #### L700.6800 #### [facility] [address] [place], [place], [address] LIVER PROFILE Collected: 09/23/2018 Status: F Source: [place] 9:30 AM [facility] Order Comment: Order Date: 09/23/18 TYPE [...] BILI 0.12 Performed By: #### L500.3400 #### [facility] [address] [place], [place], [address] URINE DRUG SCREEN Collected: 09/23/2018 Status: F Source: [place] (MAG) 9:20 AM [facility] TYPE CODE TESTS RESULT OUT OF [...] Normal NEGATIVE Performed By: #### L505.5000 #### [facility] [address] [place], [address] URINALYSIS, COMPLETE Collected: 09/23/2018 Status: F Source: [place] 9:20 AM [facility] Order Comment: Order Date: 09/23/18 How [...] URINE SEEN Performed By: #### L400.0001 #### [facility] [address] [place], [address] EMERGENCY DEPARTMENT Observed: 09/22/2018 Status: F Source: [place] SUMMARY 12:00 AM [facility] Medical Records Department [address] [place] [address] Emergency Department Summary 09/21/18 2233 MR#: [id number] Acct: [id number] Name: DK PENA Rep #: [id number] : 1990 28 From: Martin Loaiza DO [...] arm paresthesias This note was generated with IQcard dictation software. It may contain incorrect words, [...] your Primary Care Provider. Call [facility] ([phone]) or report to the closest Emergency Room. Call 911 if necessary. 09/22/18 0000 <Electronically signed by Martin Loaiza DO> Date Martin Loaiza DO Cosigner Signature (If Indicated): Date CC: Tangela Brito DO COMPREHENSIVE METABOLIC Collected: 09/21/2018 Status: F Source: [place] NGHIA 11:15 PM [facility] TYPE CODE TESTS RESULT OUT OF [...] GAP 7 Performed By: #### L500.4050 #### [facility] [address] [place], [place], [address] ,URINE Collected: 09/21/2018 Status: F Source: [place] 10:45 PM [facility] TYPE CODE TESTS RESULT OUT OF REFERENCE UNITS RANGE LAB L400.8000 Negative Normal HCGUQUAL Negative Result Comment: Very dilute urine specimens, as indicated by a low specific gravity, may not contain containers sales representative levels of hCG. If is still suspected, a first morning urine specimen should be collected 48 hours later and tested. Performed By: #### L400.7600 #### [facility] [address] [place], [place], [address] CBC W/DIFF, AUTOMATED Collected: 09/21/2018 Status: F Source: [place] 10:45 PM [facility] TYPE CODE TESTS RESULT OUT OF [...] 3.69 Performed By: #### L100.0100, L501.9100 #### [facility] [address] [place], [place], [address] ALCOHOL, BLOOD Collected: 09/21/2018 Status: F Source: [place] (MEDICAL)-SERUM 10:45 PM [facility] REPOSITORY TYPE CODE TESTS RESULT OUT [...] coma Performed By: #### L100.0100, L501.9100 #### [facility] [address] [place], [address] ALLERGIES ALLERGIES DATE TYPE / CODE NAME / CODE REACTION SEVERITY SOURCE 09/23/2018 Drug nickel/F0060 Rash Unknown [facility] Allergy/4160 30850([facility] [address](SNOMED ) Repository CT) ENCOUNTERS ENCOUNTERS ADMIT/DISCHARGE ACCOUNT ADMITTING ENCOUNTER LOCATION SOURCE NUMBER CLASS 09/23/2018/ [id number] Emergency [address] ing:ED Repository 09/21/2018/ [id number] Emergency [address] ing:ED Repository PAYERS PAYERS ENCOUNTER GUARANTOR PAYER SUBSCRIBER SOURCE 09/23/2018 DK J Primary NOT GIVENUNK [place] [id number] E Insurance:SELF PAY [facility], Number: Effective [place]ository [place] [id number]: Date:2018-09-23 () 09/21/2018 DK Axel Primary NOT GIVENUNK [place] [id number] Insurance:SELF PAY [facility], Number: Effective Repository [place] [id number]: Date:2018-09-21 ()
== END 2018-09-23 18:48 | disposition home or self-care (01) ==
PROVIDERS: Emergency Provider Emergency Medicine; Family Provider Family Medicine; PCP Family Medicine
DX: R45.851 Suicidal ideations (principal); F32.9 Major depressive disorder, single episode, unspecified; Z72.0 Tobacco use; Z79.899 Other long term (current) drug therapy
CPT/HCPCS: 80048; 80076; 80307; 80320; 81001; 84703; 85025; 93005; 99284; G0480

== ENCOUNTER 2018-11-19 09:00 | Outpatient (RCR) | payer MEDICAID, SELFPAY ==
[2018-09-23 08:57] VITALS: BMI 26.2
--- NOTE | 2018-11-19 09:04 | BH.SGPN.GN ---
Behaviors/Verbalizations/Mental Status: [Eye contact good. Motor activity WNL. Appearance casual, appropriately groomed. Speech appropriate rate and soft tone. Mood anxious. Affect is congruent with mood. Thoughts linear and logical. No evidence of delusions or hallucinations. Reviewed daily check in sheet and no reports of suicidal ideations or intent] Client Response/Progress/Benefit: [Client first day in IOP program and indicated initially feeling anxious and overwhelmed as she had been unsure of what to expect. She went on to share that her current mood continues to be anxious but is becoming increasingly excited as she grows more comfortable with the treatment setting. She went on to indicate that her current mental health win is also her stressor. Explained that coming to IOP and receiving more intensive mental health treatment is terrifying to her but something that she knows will be necessary to better manage current symptoms. Client did well to challenge herself to identify an additional positive and indicated that taking time to help her son make valentines was an act of self-care as she enjoys being creative. Client benefited from the supportive of group environment and reassurance provided regarding her decision to seek mental health treatment. Recommended to continue IOP tx to improve healthy coping, decrease sx of anxiety and depression, as well as prevent decompensation.]] Narrative Note: []
--- NOTE | 2018-11-19 10:20 | BH.SGPN.GN ---
Behaviors/Verbalizations/Mental Status: []Client alert and oriented, casually dressed, hygiene good. Eye contact good. Motor activity appropriate. Speech within normal limits. Affect congruent to topic being discussed, mood anxious. Thoughts linear, logical, no signs of hallucinations or delusions. Client Response/Progress/Benefit: []Client responded well to session, first day, but participating. Client connected with the quote, sharing ?you have to learn how to react.? Client shared a person can experience internal and external conflict. Client reported she has not addressed conflict in her life which has ?caused worse things to happen.? ?Client stated fear of the unknown, emotions, and mind-reading, have impacted how client responds to conflict. Client helped the group identify the different types of conflict resolution styles. Client reported she is the avoiding type and shared ?I?ve avoiding all conflict and relationships in my life, even the good ones.? Client shared this has caused her to isolate and feel worse. Client stated she wants to learn to be less reactive and be better with managing her emotions. Client appeared to benefit from gaining awareness of the different types of conflict resolution styles and how this impacts client?s mental health. Client?s first day in IOP. Client to continue IOP to prevent decompensation and increase mood stability.
--- NOTE | 2018-11-19 11:20 | BH.SGPN.GN ---
Behaviors/Verbalizations/Mental Status: [Client maintained good eye contact. Motor activity is appropriate. Appearance is casual. Speech an appropriate rate and tone. Mood is euthymic, anxious. Affect congruent with mood. Thoughts are linear and logical. No evidence of psychosis.] Client Response/Progress/Benefit: [Client appearing anxious though did well to challenge herself to engage in both group discussion and activity portions of group despite first day in IOP program. Client did well to work with group on identifying connections between barriers and supports for conflict resolution used in activity with personal approach to conflict. Client reflected on personal conflict style and indicated she often utilizes the avoidant approach to conflict and went on to indicate that this is particularly true in terms of her personal relationships. Client able to identify how this approach to conflict has negatively impacted mental health. She worked with the group to identify barriers to effectively managing conflict and indicated barriers may include a desire to avoid conflict and please others without upsetting them. Client able to connect with input provided by fellow participants and did well to work with the group on identifying strategies to promote better management of conflict. Reported that being willing to compromise was a very important component in effective conflict resolution. Benefited from group as she was able to increase insights regarding conflict and conflict resolution. Client recommended continued IOP tx to prevent decompensation, maintain safety, and improve application of healthy means for managing emotions and distress.] Narrative Note: []
--- NOTE | 2018-11-19 13:29 | BH.MDN ---
Multi-Disciplinary Note - Note 45-min Individual Time Started:: 12:30 Date: 11/19/18 Purpose of session/treatment goals addressed:: Assess current symptoms and process first day in IOP. Begin to work on developing treatment plan goals. Eye Contact:: Fair Motor Activity:: Restless Appearance:: Disheveled Speech:: Appropriate Mood:: Anxious, Depressed Affect:: Congruent Thoughts:: Linear, Logical, No evidence of hallucinations/delusions noted Staff Interventions:: Utilized OK techniques to elicit change behaviors. Worked with pt to identify small attaintable goals. Gave patient worksheet to clarify goals. Client Response:: Pt reports that she felt like her first day in the program went well. Reports that she benefited from group therapy and feels more hopefu. Discussed the group topic of today which was conflict. She described herself as passive and states that she has tendancy to avoid conflicts as well as other aspects of her life such as working, paying bills, or completing household responsibilities. Reports that she avoids everything and retreats to her comfort zone. Discussed recent examples where she has heading into work, became anxious, and impulsively turned the car around and went home. Avoidance and anxiety have resulted in two recent job losses. In discussing her depression she states its the worst its ever been. Believes that she is never going to be happy or have any consistency in her mood due to Bipolar diagnosis. Currently linked with psychiatrist and counseling, however little benefit. Fleeting suicidal ideations however denies any active suicidal ideations, plan, or intent. She is interested in learning more about CBT techniques and thought stopping skills. Reports that she feels that it is possible to be in better control of her thoughts and emotions, however doesn't know how. Risks/Concerns:: Pt denies any active suicidal ideations, plan, or intent. Reports decrease in suicidal ideations since agreeing to attend the program. Reports being more hopeful. No risks or concerns noted. Progress Toward Goals/Plan:: Limited progress noted as this was pt's first day in IOP. Reports increased support and encouragement from group. Reports feeling more hopeful and reports no suicidal ideations since begining of the week. Time Stopped:: 13:15
--- NOTE | 2018-11-19 13:31 | BH.MTP ---
[facility] Treatment Plan - Patient Information Program Physician:: Dr. Elijah De Guzman Primary Therapist:: Rico Martinez - Psychiatric Diagnoses Psychiatric Diagnoses:: Persistent Depressive Disorder. DANA. Chronic Adjustment Disorder with anxiety Diagnosis Code(s):: F34.1 - Estimated LOS Estimated LOS (in weeks):: 8 Problem/Goal #1 - Problem/Goal #1 Stated Goal:: Client will decrease depressive symptoms, isolation, suicidal ideations, anhedonia, poor self-esteem, and negative thoughts due to Persistent Depressive Disorder through Intensive Outpatient Program. Description of Barriers: Hopelessness, several conflicted relationships, unemployed, financial stressors, Functional Impact: Daily functioning is impacted by depression. [facility] hospitalization due to depression and suicidal ideations. Struggles with managing depression on a daily basis. - Objectives Objective #1 Stated Objective: Client will identify 2-3 triggers and 2-3 coping skills to reduce depressive symptoms, anhedonia, and suicidal thinking. Interventions: Through group and individual counseling will help client identify triggers and teach client various coping strategies to effectively cope with depressive symptoms Discharge Criteria: Client will have achieved this goal when can identify at least 2 triggers, verbalize two healthy coping strategies and defeat suicidal ideation. Target Date: 01/17/19 Review Date: 12/17/18 Objective #2 Stated Objective: Client will identify and replace 3-4 negative self-talk messages and negative core/mistaken beliefs that reinforce depressive symptoms. Will also be able to identify commonly used cognitive distortions and complete thought record Interventions: Throught group and individual counseling therapists will help client identify cognitive distortions and negative self-talk and develop strategies to combat these thoughts/beliefs Discharge Criteria: Client will have achieved this goal when can identify at least 3 negative self-talk messages and 3 mistaken beliefs and replace those messages with positive, affirmative messages. Target Date: 01/17/19 Review Date: 12/17/18 Problem/Goal #2 - Problem/Goal #2 Stated Goal:: Client will reduce overall frequency, intensity, and duration of the anxiety so that daily functioning is not impaired. Description of Barriers: Limited coping skills, hoplessness, doesn't beleive that she has control over her anxiety Functional Impact: Has led to recent job losses due to anxiety. Isolative and avoidant behaviors on daily basis. - Objectives Objective #1 Stated Objective: Client will learn and implement 2-3 calming skills and 2-3 problem solving strategies to realistically addressing worries and reduce overall anxiety. Interventions: Through group and individual counseling will teach client problem-solving strategies involving defining a problem, brainstorming solutions, selecting and implementing various solutions. Discharge Criteria: Client will have achieved this goal when can verbalize at least two problem solving strategies and calming strategies and utilize the strategies to realistically address worries. Target Date: 01/17/19 Review Date: 12/17/18 Objective #2 Stated Objective: Will develop a concrete step by step plan to address anxiety which includes coping skills, strategies for thought reframing, calming skills, and affirmations. Interventions: Through individual and group counseling will assist pt in developing skills to utilze on a consistent basis to encorporate into the plan. Discharge Criteria: Complete anxiety managment plan. Target Date: 01/17/19 Review Date: 12/17/18 Problem/Goal #3 - Problem/Goal #3 Stated Goal:: Increase awareness of Boderline Personality Disorder and its impact on impulsiveness, mood swings, and relationship conflicts. Description of Barriers: Chronic hx of conflicted relationships, poor emotional regulation. - Objectives Objective #1 Stated Objective: Pt will be able to identify borderline personality traits and thier impact on daily functioning, impulsivity, and relationships Interventions: Will provide pt with educational handouts and further discuss role of BPD in managing emotions. Discharge Criteria: Pt will be able to identify 2 criteria for BPD and how BPD relates to relatinships, mood, and impulsivity. Target Date: 01/17/19 Review Date: 12/17/18
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
--- NOTE | 2018-11-20 09:05 | BH.SGPN.GN ---
Behaviors/Verbalizations/Mental Status: [] Eye contact is good. Motor activity is appropriate. Appearance is casual. Speech is Appropriate. Mood is depressed. Affect is flat. Thoughts are linear and logical. No evidence of psychosis. Reviewed daily check in sheet with no reports of suicidal ideations or intent. Client Response/Progress/Benefit: [] Pt was an active participant in group discussion. Emotion for today is sad. Shared with the group a significant stressor that occurred last evening. She would not elaborate except to say that it was the worst ever. Reports that she was extremely emotional however was proud of herself as she ended up completing the tasks and responsibilities she was working on rather that ignore or avoid them. States I used that energy to to finish up my projects. Reports rumination of that stressor as well as not working currently. Group provided support, encouragement, and feedback. Some progress noted in spite of significant stressor. Participated in discussion on cognitive distortions. Will continue in IOP to maintain safety, increase coping skills, improve functioning, and prevent decompensation. Narrative Note: []
--- NOTE | 2018-11-20 11:05 | BH.NA ---
Physical Data - Height/Weight Height: 1.65 m Weight:: 68.039 kg Weight in Pounds: 150.0 lbs Current Medication Compliance - Medication Compliance Do you take your medication as prescribed?: No Do you need assistance with taking medication?: No Have you had side effects from medication?: No Nutritional History - Appetite Nutritional Instructions:: If client shows signs of a swallowing problem, weight change of 10 pounds or more in the last month, or is on a diabetic diet, the physician will review and request a dietitian consult, as appropriate. All unintentional weight loss will be referred to the physician for decision on need for dietitian consult. Describe your appetite:: Poor Have you noticed a change in your eating habits lately?: Yes - 40# wt loss in the past year Functional Assessment - Sleep Pattern Describe any problems with sleeping: Client describes symptoms of hypersomnia and acknowledges that she sleeps as an avoidance tactic and to isolate. - Activities Motor Activity:: Functional Sensory/Communication Assess - Hearing Problems Do you have any hearing problems?: Adequate - Communication Problems Do you have difficulty understanding what people are saying?: No Do you have trouble putting your thoughts into words or expressing what you want to say?: No Do people ever have trouble understanding what you say?: No What is your primary language?: Citizen Of [place] Learning Assessment - Learning Barriers Learning Barriers:: Ready to learn Medical Problems/History - Pain Assessment Do you have acute or chronic pain?: No - Female Reproductive Do you think you may be ?: No Number of pregnancies:: 2 Number of children:: 1 Have you reached menopause?: No Do you have any history of breast disease?: No :: 1 - SAB Substance Abuse - Substance Abuse Please describe substance abuse in the last 30 days:: Client denies ETOH use. Smokes 1ppd cigarettes. Hx cocaine and marijuana use/abuse. Drinks 4-5 caffeinated beverages daily. Mental Status Summary - Mental Status Significant Findings/Observations on Appearance and Mood:: Sushma is A&Ox4 and cooperative with interview. She is mildly unkempt. Normal activity. Fair eye contact. Speech is clear and of normal rate and volume. Moderate depression. Mood congruent affect. Logical associations and normal process. No symptoms of delusions. Denies HI and hallucinations. Currently denies SI, but admits to prior SI with SA. She does have passive thoughts of . Suicide Assessment - Suicidal Ideation Are you currently or have you been suicidal in the past?: Yes Suicidal Intentional Rating Scale (SIRS): Suicidal thoughts (past) Physician Notification: If Active suicidal thoughts/Will not contract for safety is checked, contact physician and document in the Physician Notification section below. Past Psychiatric History - MH Treatment Hx Past Psychiatric Medications:: Prozac, Effexor, Abilify, gabapentin, Depakote, lithium Describe (age, circumstance, etc) any past hospitalizations: Client notes 3 prior hospitalizations: 2018 - SI. 2016 - [facility] for SI. 2015 - [facility] for SI Fall Risk Assessment - Age Age: Less than 60 - Mental Status Mental Status: Willing & able to ask for assistance when needed - Physical Status Physical Status: No problems - Impairments Impairments: None - Elimination Elimination: Continent AND independent - Gait or Balance Gait or Balance: Walks independently - Hx of Falls History of falls in the past 6 months: No known history - Medications/Substances Medications/substances used within the past 24 hours or ordered to administer: 1-2 of the medications/substances listed above - Total Score Total Points:: 1 Physician Notification - Physician Notification Physician Notified: Elijah De Guzman Method of Notification: Face to Face Comments: treatment planning discussion RN Summary of Impressions - Impressions Recommendations: Include psychiatric and medical issues, treatment planning recommendations, and discharge planning needs. Impressions: Psychiatric Issues: borderline personality disorder, depression, anxiety, self-harm behavior Impression: General Medical Conditions: N/A - Level of Care How do the client's current symptoms and functional deficits support need for this level of care?: Sushma describes a progressive decline in her mental health for several months. There have been multiple stressors that have contributed to this decompensation, including: recent divorce, lost a job due to her mental health symptoms/attentence, not being granted custody of her son, and the anniversary of a lost around [place]. She describes hypersomnia and oversleeping as an escape. Client has also had a decreased appetite and has lost approximately 40# in the past year - this has been stabilizing. She endorses overwhelming feelings of guilt for not being able to care for her son. She has little energy and often does not compelte ADL's because she doesn't care. There are also paranoid thoughts of being watched and spied on, though she does not elaborate about these during this interview. She notes that she has been tried on all the antidepressants, but they make my depression worse and increase my suicidal thoughts, and is reluctant to take medications. IOP will provide social support and skills educations to promote gains and prevent further decompensation.
--- NOTE | 2018-11-20 12:35 | BH.MDN ---
Multi-Disciplinary Note - Note 60-min Individual Time Started:: 11:00 Date: 11/20/18 Purpose of session/treatment goals addressed:: Developed treatment plan goals. Began to work on identifying cognitive distortions, coping skills, and thought-challenging skills. Eye Contact:: Fair Motor Activity:: Restless Appearance:: Casual Speech:: Appropriate Mood:: Anxious, Depressed Affect:: Congruent Thoughts:: Linear, Logical, No evidence of hallucinations/delusions noted Staff Interventions:: Utilized NH techniques to elicit change behaviors. Provided education and worksheet on cognitive distortions. Reviewed treatment plan goals. Client Response:: Pt completed treatment plan worksheet. Identified that she would like to identify more effective coping mechanisms and handle things better. Stated that she does not want to look at events as black and white which impacts her mental wellness. Also reports that she would like to be more active at home and socially. Reports significant stressor last evening related to ex-. Worked with therapist to challenge negative thoughts. States that yesterday was a extremely positive day unitl stressor in the evening. Praised for not allowing stressor to cause avoidant behaviors and she actually got some projects completed. Risks/Concerns:: No risks or concerns noted. Denies any suicidal ideations, plan, or intent. Reports decrease in SI since starting IOP yesterday. More hopeful. Future-oriented for this weekend. Protective factors. Progress Toward Goals/Plan:: Progress noted per pt yesterday afternoon and early evening. Did report stressors regarding ex which caused exacerbation of symptoms. Difficutly managing overwhelming thoughts and emotions associated with stressors however was able to complete projects rather than avoid and isolate. Will continue in IOP to maintain safety, stablize mood, and increase functioning. Time Stopped:: 12:00
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
--- NOTE | 2018-11-20 13:21 | BH.DR.ITP ---
Initial Treatment Plan - Patient Information Visit Information: ADMISSION DATE: 11/19/18 EXPECTED LOS: 4-6 weeks Diagnoses:: Persistent depressive disorder; DANA; adjustmet disorder; borderline personality disorder - Problems/Symptoms Problem #1:: depression Symptom:: low mood, anhedonia, low energy Problem #2:: anxiety Symptom:: frequent worry, problems handling stress Problem #3:: Borderline personality disorder Symptom:: mood swings, relationship problems, impulsivity
--- NOTE | 2018-11-23 09:12 | BH.SGPN.GN ---
Behaviors/Verbalizations/Mental Status: []Pt eye contact good, casually dressed, motor activity restless, speech normal rate and tone, mood anxious and depressed, congruent affect, thoughts linear and intact, no evidence of delusions or hallucinations. Client Response/Progress/Benefit: []Pt listened attentively to others, shared thoughts and feelings. Pt reported one mental health positive was going to the grocery store. Pt initially put down herself for identifying going to the store as a positive, but seemed to benefit from support from group that getting out of the house can be difficult when anxious and depressed. Pt reported another positive was getting her hair done yesterday as a form of self-care. Pt reported her stressor is having to send her son back to her son's fathers house on Friday due to pt having several panic attacks that she struggled with getting under control. Pt reported her son's father is very supportive and was understanding, but pt felt guilty and upset with herself that she couldn't manage her symptoms enough to take care of her son. Pt seemed to benefit from expressing thoughts and feelings and receiving support from peers. Pt to continue IOP level of care to stabilize moods, increase healthy coping, and prevent decompensation. Narrative Note: []
--- NOTE | 2018-11-23 10:20 | BH.SGPN.GN ---
Behaviors/Verbalizations/Mental Status: []Client alert and oriented, neatly dressed and groomed, dyed her hair. Eye contact good. Motor activity appropriate. Speech soft. Affect congruent to content, mood euthymic. Thoughts linear, logical, no signs of hallucinations or delusions. Client Response/Progress/Benefit: []Client responded well to session, quiet at first, but engaged more near the end of session. Client agreed with peers that ineffective communication can negative impact mental health and relationships. Client provided examples how mother using ?guilt trips? on her and how that impacts client?s mood. Client stated effective communication is important for mental health progress because it can help people respect one?s boundaries. Client helped the group discuss the different communication styles including the payoffs and costs of each. Client reported she is either aggressive or passive. Client shared she tends to be ?the person that shuts down? and does not want people to get upset. Client stated ?my entire family is passive aggressive? but client reported she ?calls them out? when this happens, and it is helpful. Client appeared to benefit from increasing awareness of how communication impacts mental health. Progress limited as it is client?s second day in the program. Client to continue to prevent decompensation and increase emotional regulation skills.
--- NOTE | 2018-11-23 11:26 | BH.SGPN.GN ---
Behaviors/Verbalizations/Mental Status: [Client alert and oriented, casual appearance. Eye contact good. Motor activity appropriate. Speech within normal limits. Affect congruent, mood euthymic, anxious. Thoughts linear, logical, no signs of hallucinations or delusions.] Client Response/Progress/Benefit: [Client active participant AEB providing contributions and engagement throughout. Group worked to further review individual communication style and how that impacts mental health. Client took an active leadership role during the activity that encouraged clients to practice clear, specific communication. Client shared it was helpful when the group provided encouragement and answered questions during the activity. Group identified strategies that helped the group communicate more effectively during the activity. Client identified personal communication goal which is to practice being more willing to communicate with supports about mental health when recognizing warning signs rather than minimizing or shutting down. Client seemed to benefit from increased insight into how communication style impacts mental health and identifying strategies for increasing effective communication skills. Progress noted as client reports increased follow through with socializing and challenging negative/intrusive thoughts. Will continue IOP tx to prevent decompensation, improve mood stability, and promote consistent use of coping skills.] Narrative Note: []
--- NOTE | 2018-11-23 14:11 | BH.MDN ---
Multi-Disciplinary Note - Note 45-min Individual Time Started:: 12:30 Date: 11/23/18 Purpose of session/treatment goals addressed:: Assessed current symptoms and reviewed progress in IOP. Adressed treatment goals 1 and 2. Eye Contact:: Fair Motor Activity:: Restless Appearance:: Casual Speech:: Appropriate Mood:: Anxious, Depressed Affect:: Congruent Thoughts:: Linear, Logical, No evidence of hallucinations/delusions noted Staff Interventions:: Utilized DE techniques to elicit change behaviors. Allowed pt to vent frustrations. Provided education on cognitive distortions. Gave pt thought record to complete. Client Response:: Tearful throughout the assessment. Discussed stressors and anxiety attacks over the weekend. Completed homework assignment regarding identifying cognitive distortions. Pt identified catastrohizing, emotional reasoning, black or white thinking, and regret orientation. Able to identify the impact of these cognitive distortions on her thoughts and emotions over the weekend. Not utilizing any coping skills to manage anxiety except to attempt to sleep or smoking cigarettes. Feels hopeless. Primary feelings over the weekend and today are anxiety and ruminations over actions this weekend. Risks/Concerns:: No risks or concerns noted. Denies any suicidal ideations, plan, or intent. Protective factors reported. Future-oriented. Reports improved mood since starting IOP. Progress Toward Goals/Plan:: Pt reports progress in decreasing depression and increasing hope. Limited progress in regards to anxiety as she reports overhwhelming anxiety and panic attacks this weekend which led to isolative behaviors. Limited coping skills to aid in managment of emotions. Plan is to continue in IOP to increase coping skills, maintain safety, stablize mood, and improve daily functioning. Time Stopped:: 01:15
--- NOTE | 2018-11-24 09:05 | BH.SGPN.GN ---
Behaviors/Verbalizations/Mental Status: []Client alert and oriented, neatly dressed and groomed. Eye contact fair. Motor activity appropriate. Speech within normal limits. Affect congruent to mood, mood anxious, overwhelmed. Thoughts linear, logical, no signs of hallucinations or delusions. Reviewed client?s symptom tracker, client denies active suicidal ideation, plan, and intent as of 11/24/17. Client Response/Progress/Benefit: []Client responded well to session, open to supportive statements from peers. Client reports feeling ?overwhelmed and emotional? today sharing she enjoys coming to [facility], but it is also ?really exhausting.? Client shared she has come to realize how difficult it is to challenge her negative thinking and have awareness of negative self-talk. Peers were able to normalize this experience and provided supportive statements to client. Client was receptive, nodding and saying thank you, and stated that she understands the benefit of the worksheets and activities at [facility] even if they do cause stress at times. Therapist encouraged client to be patient and use self-compassion when working on new coping skills and thought challenging at [facility]. Client?s current positive was making it to IOP today. Client shared ?I really didn?t want to come? but she used self-talk to overcome those barriers. Client appeared to benefit from receiving support from peers. Client to continue IOP to prevent decompensation, increase emotional regulation, and challenge cognitive distortions.
--- NOTE | 2018-11-24 10:12 | BH.SGPN.GN ---
Behaviors/Verbalizations/Mental Status: [Eye contact is good. Motor activity is appropriate. Appearance is casual. Speech is Appropriate. Mood is dysthymic, anxious. Affect is congruent. Thoughts are linear and logical. No evidence of psychosis. ]] Client Response/Progress/Benefit: [Pt was an engaged participant in activity as evidenced by pt providing input and listened to others. Provided direction and encouragement. Group worked together to come up with common negative forces in their lives which can hold them back from growth. Negative forces included: toxic relationships, negative thoughts, low motivation, and past experiences. Group then worked together to identify common positive forces which help us grow. These included: Healthy coping skills, positive support, self-care, patience, and therapy. Pt reported that growth requires taking action to create more positive forces. Pt was attentive during psychoeducation on the importance of utilizing many aspects of positive forces to help one grow. Benefited from group with increased insight and awareness on the impact of negative and positive forces on mental wellness.] Narrative Note: []
--- NOTE | 2018-11-24 11:18 | BH.SGPN.GN ---
Behaviors/Verbalizations/Mental Status: []Pt eye contact good, casually dressed, motor activity restless, speech normal rate and tone, mood anxious, congruent affect, thoughts linear and intact, no evidence of delusions or hallucinations. Client Response/Progress/Benefit: []Client listened attentively to peers and contributed thoughts and ideas to discussion. Client identified positive forces that help her progress toward goals in include: desire for positive results, trying new strategies, willingness to do things that are uncomfortable, desire to live, and motivate to be mentally healthy for her son. Client identified negative forces that hold her back from progress to include: fear of failure, why bother, haven't been able to get better yet, sense of urgency to not feel uncomfortable emotions, unhealthy coping, and desire to be better, but doesn't want to put forth the work to do so. Client stated all of her forces to be equally powerful, couldn't identify one or two that impact her the most. Client seemed to benefit from increased awareness of her personal positive and negative forces in life. Client to continue IOP level of care to stabilize moods, increase healthy coping and prevent decompensation. Narrative Note: []
--- NOTE | 2018-11-25 09:15 | BH.SGPN.GN ---
Behaviors/Verbalizations/Mental Status: [Eye contact is good. Motor activity is appropriate. Appearance is casual, grooming appropriate. Speech is Appropriate rate and tone. Mood is anxious and euthymic. Affect is congruent. Thoughts are linear and logical. No evidence of psychosis. Reviewed daily check in sheet and pt denies any active SI, plan, or intent as of this date.]] Client Response/Progress/Benefit: [Pt responded well to session, engaged throughout and open to processing with the group. Pt indicated current emotion as ?happy, but feeling insecure and vulnerable? and discussed that this has been due to increased insight into factors impacting her mental health. She shared that ?this program is making me tap into a lot of things I never have thought of?. She shared that this is both empowering and scary as she now feels more exposed. Able to identify benefits of identifying and addressing her emotions and provided insight into impact of thoughts on emotions. Shared beginning a personal thought log. Pt appeared to benefit from the support and structure of group environment. Pt recommended continued IOP tx to prevent decompensation, promote ongoing application of healthy coping skills, and further reduce mental health sx.] Narrative Note: []
--- NOTE | 2018-11-25 10:20 | BH.SGPN.GN ---
Behaviors/Verbalizations/Mental Status: []Client alert and oriented, neatly dressed and groomed. Eye contact good. Motor activity appropriate. Speech within normal limits. Affect congruent, mood dysthymic, anxious. Thoughts linear, logical, no signs of hallucinations or delusions. Client Response/Progress/Benefit: []Client responded well to session, active participant and providing good input. Client connected with the quote and shared ?you?ll likely give up if you don?t reward yourself? when working towards goals. Client shared sometimes people self-sabotage because they are afraid at failing at their goals. Client reported setting goals can benefit mental health because it can increase self-esteem, improve mood, and increase motivation. Client shared barriers such as fear of failure, negative thinking, and external events can hinder one?s ability to accomplish goals. Client helped the group define SMART goals and shared it is important for her to focus on why her goals are important. Client participated in the group activity and often times put herself down saying ?don?t listen to me I?m not good at setting goals.? However, the group gently challenged client to help her see the strengths she brings to the team. Client stated challenging thoughts and taking care of emotions helped the group be successful. Client appeared to benefit from learning about SMART goals and practicing setting smart goals. Progress noted as client was more vocal in group today and reports increased awareness of negative thoughts. Client to continue IOP to promote emotional regulation and reduce negative thinking that reinforces depression.
--- NOTE | 2018-11-25 11:20 | BH.SGPN.GN ---
Behaviors/Verbalizations/Mental Status: []Client alert and oriented, neatly dressed and groomed. Eye contact good. Motor activity appropriate. Speech within normal limits. Affect congruent to mood, mood irritable, dysthymic. Thoughts linear, logical, no signs of hallucinations or delusions. Client Response/Progress/Benefit: []Client responded well to session, active participant and positive contributions. Client?s SMART goal is to record at least two thoughts a day in her thought log book for one week. Client stated she wanted to start with two ?so I don?t feel overwhelmed.? Client shared accomplishing this goal would help client process through thoughts and feelings while providing a creative outlet. Client shared this will also help increase her self-esteem. Client?s barriers included: being busy, lack of motivation, ?being afraid I won?t do it, so I don?t do it,? lack of routine, and feeling pressured. Client able to identify solutions to barriers such as: doing her thought log at the same time each day, writing out why she wants to do this and hanging it up around her house, giving herself credit, and reframing her perspective on goals ?I get to do this? instead of ?I have to do this.? Client appeared to benefit from identifying a SMART goal as well as identifying solutions to barriers. Progress noted as client has been utilizing thought logs to gain awareness of negative thinking patterns and reports coming to group today despite wanting to isolate. Client to continue IOP to reduce depression and increase healthy coping skills.
--- NOTE | 2018-11-26 09:11 | BH.MDN ---
Multi-Disciplinary Note - Note 45-min Individual Time Started:: 12:30 Date: 11/25/18 Purpose of session/treatment goals addressed:: Reviewed progress in IOP. Assessed current symptoms. Addressed treatment goals 1 and 2. Eye Contact:: Good Motor Activity:: Restless Appearance:: Casual Speech:: Appropriate Mood:: Anxious, Depressed Affect:: Congruent Thoughts:: Linear, Logical, No evidence of hallucinations/delusions noted Staff Interventions:: Utilized [place] techniques to elicit change behaviors. Provided education on cognitive distortions and thought stopping techniques. Gave homework on reading regarding self-talk. Client Response:: Pt discussed briefly what she learned in groups today. She developed a SMART goal which included recording at least 2 thoughts a day in her thought log for 1 week. She completed her homework and filled in her thought log for yesterday. We reviewed her thought log. She reports that this was helpful and she identified the cognitive distortion of mind reading on several occasions. Worked with therapist to begin to challenge or combat these distortions. Continues to reports overwhelming emotions on a daily basis. Ruminations and dwells on conversations and interactions with others. Discussed assertive communication however reports she is not ready to be assertive b/c she is fearful of what others will think or say in response. Risks/Concerns:: No risks or concerns noted. Denies active suicidal ideations, plan, or intent. Protective factors. Future-oriented. Progress Toward Goals/Plan:: Progress noted as pt completed homework and is begining to records her thoughts, emotions, and behaviors. Is also begining to combat or challenge negative thoughts and cognitive distortions. Actively engaged in groups. Continues to report overwhelming anxiety and difficulty managing emotions on daily basis. Continues to ruminate and dwell on her actions and interactions with others which is impacting her wellness. Plan is to continue in IOP to maintain safety, increase coping skills, stablize mood, and prevent further decompensation. Time Stopped:: 13:15
--- NOTE | 2018-11-27 10:12 | BH.SGPN.GN ---
Behaviors/Verbalizations/Mental Status: [Client alert and oriented, casually dressed and groomed. Eye contact good. Motor activity appropriate. Speech within normal limits. Affect congruent, mood anxious, euthymic. Thoughts linear, logical, no signs of hallucinations or delusions. ] Client Response/Progress/Benefit: [Client responded well to session, attentive during discussion and providing input throughout. Client connected with the group topic of crisis and did well to work with group to define crisis. Group identified examples of potential crisis to include unexpected loss, overwhelming stress, and hardships out of one?s control. Connected with examples from group on personal crisis and shared an example regarding her own crisis experience. Attentive during discussion on how coping with crisis by using unhealthy coping skills could lead to additional personal crisis. Client shared personal crisis occurs when we don?t know how else to cope and feel we need a way out. Group identified unhealthy coping skills to include; substance use, toxic relationships, overeating, avoidance, anger, and giving up. Group identified warning signs for crisis which included; isolating, increased anxiety, avoidance, agitation, minimizing, and impatience. Client completed the personal warning signs worksheet and identified crisis warning signs to include; negative or distorted thinking, feeling like a failure, lack of desire, low energy, isolation, and low motivation. Benefited from group by increasing awareness of crisis and personal warning signs. Progress noted as client displaying increased levels of engagement and report of more consistent application of skills learned, report of decreased depression. Recommended continued tx to improve skill application and reduce sx severity.] Narrative Note: []
--- NOTE | 2018-11-27 15:28 | BH.MDN ---
Multi-Disciplinary Note - Note 45-min Individual Time Started:: 12:30 Date: 11/27/18 Purpose of session/treatment goals addressed:: Assessed current symptoms. Reviewed progress in IOP. Addressed all treatment plan goals. Eye Contact:: Good Motor Activity:: Restless Appearance:: Casual Speech:: Appropriate Mood:: Anxious, Depressed Affect:: Congruent Thoughts:: Linear, Logical, No evidence of hallucinations/delusions noted Staff Interventions:: Utilized AL techniques to elicit motivation for change. Reviewed thought record. Gave homework to read CBT self-talk handout. Client Response:: Pt reports that she was able to manage her emotions and stressors yesterday during a stressfull event. In doing so she increased her insight and confidence. She identifed some relationship patterns stating I'm either 100% in love with people or I 100% hate them. Able to recognize this and connect it with Borderline Personaility disorder. Discussed stigma associated with that. Continue to complete her thought log and is gaining insight into her thoughts and how they impact her depression and anxiety. States that she is begining to challenge her thoughts however discussed how difficult it is. Continues to feel hopeless and guility for not being able to work. Passive thoughts of . Continues panic attacks. Risks/Concerns:: No risk or concerns noted. Denies any suicidal ideations, plan, or intent. Progress Toward Goals/Plan:: Progress noted per pt and therapist. Was able to manage anxiety during stressful even yesterday. Decreased ruminations. Increased awareness and insight regarding impacts of thoughts on mood and beahviors. Begining to attempt to challenge cognitive distortions. Continues to report daily depression and anxeity which impact functioning. Passive thoughts of . Denies active suicidal ideations, plan, or intent. Hopelessness. Fearful that she will never be well enough to get back to work. Guilty that her parents are helping her financially and that she has limited role in raising her child. Will continue in IOP to maintain safety, prevent decompensation, stablize mood, and improve daily functioning. Time Stopped:: 01:15
--- NOTE | 2018-11-30 09:08 | BH.SGPN.GN ---
Behaviors/Verbalizations/Mental Status: [Eye contact good. Motor activity WNL. Appearance casual and comfortable. Speech Appropriate rate and tone. Mood anxious, euthymic. Affect is congruent, bright. Thoughts linear and logical. No evidence of delusions or hallucinations. Reviewed daily check in sheet and no reports of suicidal ideations or intent] Client Response/Progress/Benefit: [Client receptive of session, attentive and providing input throughout. Client indicated current mood as ?happy? and indicated attributing this to having a ?good weekend?. Client identified current mental health wins as being productive and following through with her identified plan of cleaning part of her house. She went on to discuss that doing so had made her feel better and that she finds a clean environment aids in maintaining a ?clear mind?. Client went on to identify an additional win as beginning to paint again and discussed that painting has always been a pleasurable source of emotional release but that she had not been engaging in doing so while struggling with her depression in the past. She noted that the program and challenging her thoughts has aided in improving her overall ability to complete self-care related activities. Client benefitted from group support and shared concerns when client identified current stressor as being unsure she will be able to maintain the progress she has made so far in tx. Client expressed feeling nervous about self-sabotaging when forced to rely on her skills on her own. Progress noted in her ability to begin challenging self-doubt related thoughts. Recommended continued IOP tx to prevent decompensation, reinforce progress made, and promote healthy coping and emotion regulation skills.] Narrative Note: []
--- NOTE | 2018-11-30 10:15 | BH.SGPN.GN ---
Behaviors/Verbalizations/Mental Status: []Pt eye contact good, casually dressed, motor activity appropriate, speech normal rate and tone, mood anxious, congruent affect, thoughts linear and intact, no evidence of delusions or hallucinations. Client Response/Progress/Benefit: []Pt listened attentively to peers and contributed thoughts and ideas throughout session. Pt reported she disagreed with another peers comment about going big or going home because she has had that all or nothing mentality, which has resulted in pt doing nothing for a long time. Pt identified things she wants to take back control over to include: isolation, lack of coping, distorted thoughts, fear of rejection, insecurity, focusing on the negative, negative thoughts, and not believing positives. Pt identified cognitive distortions to be the barrier that has the most control over her progress. Pt stated until recently she hadn't realized how negatively impactful her distorted thought patterns have on her life. Pt seemed to benefit from increased awareness of what she believes has too much power in her life. Narrative Note: []
--- NOTE | 2018-11-30 11:16 | BH.SGPN.GN ---
Behaviors/Verbalizations/Mental Status: []Client alert and oriented, neatly dressed and groomed. Eye contact good. Motor activity appropriate. Speech within normal limits. Affect constricted, mood euthymic. Thoughts linear, logical, no signs of hallucinations or delusions. Client Response/Progress/Benefit: []Client responded well to session, positive contributions. Client connected with the zones of action and shared to change one has to get out of their comfort zone, but ?don?t set unrealistic goals.? Client discussed the barriers that could prevent her from accomplishing her goal such as forgetting and negative thinking. Client began creating a 30-day action plan to reduce cognitive distortions and mind-reading. Client?s motivator for reducing this is to ?increase my chance of success in life and relationships.? Client?s goal for the first week is to fill out her thought log every time she recognizes herself mind-reading and to review those moments later. For the second week client is going to continue her thought log, but she will add challenging these distortions in the moment using self-talk. Client stated taking time to reflect and ask herself how she is doing will help her stay consistent. Client appeared to benefit from creating small SMART goals to reduce her cognitive distortions. Progress noted as client has been utilizing thought challenging, but she continues to report ?labile emotions.?
--- NOTE | 2018-11-30 15:47 | BH.MDN ---
Multi-Disciplinary Note - Note 60-min Individual Time Started:: 12:20 Date: 11/30/18 Purpose of session/treatment goals addressed:: Assess current symptoms. Review progress in IOP. Addressed treatment plan goals 1 and 2. Eye Contact:: Good Motor Activity:: Appropriate Appearance:: Casual Speech:: Appropriate Mood:: Anxious, Depressed Affect:: Congruent Thoughts:: Linear, Logical, No evidence of hallucinations/delusions noted Staff Interventions:: Utilized RI techniques to elicit change behaviors. Reviewed thought log. Reviewed self-talk handout. Gave handout on challenging negative self-talk. Client Response:: Pt reports that she has noticed improvement in her mental health symptoms since last week. Reports that she was able to wash all of her dishes, clean the kitchen, and clean her living room this weekend. Reports that she has been unable to complete these responsibilities for several months due to MH symptoms. She also rewarded herself with begining an art project or painting which brought her some domitila. Reports increased motivation and insight into her thoughts. Admits that she is fearfull that progress will be short-lived and she will fail. Reframed this thought. Anxious about family event this evening. Risks/Concerns:: No risks or concerns noted. Denies any suicidal ideations, plan, or intent. Progress Toward Goals/Plan:: Progress noted per pt report. Reports decreased in frequency, severity, and duration of depression and anxiety. Increased self-confidence. More hopefull. Tearful at times during the assessment. Continues to struggle with self-esteem and interactions with others. Admits to stuggling with being by herself and fears of abandonment. Will continue in IOP to maintain safety, increased functioning, and prevent decompensation. Time Stopped:: 13:15
--- NOTE | 2018-11-30 16:04 | BH.MDN_ITS ---
Multi-Disciplinary Note - Note 60-min Individual Time Started:: 12:20 Date: 11/30/18 Purpose of session/treatment goals addressed:: Assess current symptoms. Review progress in IOP. Addressed treatment plan goals 1 and 2. Eye Contact:: Good Motor Activity:: Appropriate Appearance:: Casual Speech:: Appropriate Mood:: Anxious, Depressed Affect:: Congruent Thoughts:: Linear, Logical, No evidence of hallucinations/delusions noted Staff Interventions:: Utilized [place] techniques to elicit change behaviors. Reviewed thought log. Reviewed self-talk handout. Gave handout on challenging negative self-talk. Client Response:: Pt reports that she has noticed improvement in her mental health symptoms since last week. Reports that she was able to wash all of her dishes, clean the kitchen, and clean her living room this weekend. Reports that she has been unable to complete these responsibilities for several months due to MH symptoms. She also rewarded herself with begining an art project or painting which brought her some domitila. Reports increased motivation and insight into her thoughts. Admits that she is fearfull that progress will be short-lived and she will fail. Reframed this thought. Anxious about family event this evening. Risks/Concerns:: No risks or concerns noted. Denies any suicidal ideations, plan, or intent. Progress Toward Goals/Plan:: Progress noted per pt report. Reports decreased in frequency, severity, and duration of depression and anxiety. Increased self- confidence. More hopefull. Tearful at times during the assessment. Continues to struggle with self-esteem and interactions with others. Admits to stuggling with being by herself and fears of abandonment. Will continue in IOP to maintain safety, increased functioning, and prevent decompensation. Time Stopped:: 13:15
--- NOTE | 2018-12-01 09:05 | BH.SGPN.GN ---
Behaviors/Verbalizations/Mental Status: []Pt eye contact good, casually dressed, motor activity appropriate, speech normal rate and tone, mood euthymic, congruent affect, thoughts linear and intact, no evidence of delusions or hallucinations. Reviewed client?s symptom tracker, no signs of suicidal ideation, plan, or intent as of today. Client Response/Progress/Benefit: []Pt listened attentively to peers and shared thoughts and feelings. Pt reported one mental health win was getting to IOP today on time. Pt stated she has been wanting to get to therapy on time because wants to get back into a schedule/routine of being able to get up in the morning as a way to prepare herself for when she starts working again. Pt shared a stressor was when her son had a meltdown last night when pt gave a consequence for pt not following directions. Pt reported she initially was nervous about what to do when her son was throwing and destroying things, but she chose to give her son space and eventually her son calmed down. Pt identified being able to keep herself calm during her son's escalation as a mental health win because that can be challenging to do. Pt stated she is feeling hopeful today. Pt seemed to benefit from expressing thoughts and feelings as well as support received by group. Pt to continue IOP level of care to decrease anxiety, increase utilization of healthy skills and prevent decompensation. Narrative Note: []
--- NOTE | 2018-12-01 10:13 | BH.SGPN.GN ---
Behaviors/Verbalizations/Mental Status: []Client alert and oriented, casually dressed, hygiene good. Eye contact good. Motor activity appropriate. Speech within normal limits. Affect congruent-smiling, mood euthymic. Thoughts linear, logical, no signs of hallucinations or delusions. Client Response/Progress/Benefit: []Client responded well to session, positive contributions. Client connected with the topic of failure and famous people that have overcome setbacks. Client shared failure is not reaching a goal and that how one views failure can impact mental health and progress. Client shared in the past when she has failed she has thought ?there?s no use of trying now? or that she would rather not try than fail. ?Client reported that fear of failure can lead to defensiveness and self-destructive behavior. Client stated barriers to overcoming fear of failure are lack of support and lack of awareness. Client stated, ?you don?t have to view failure this way? and that it is possible to overcome fear of failure. Client engaged in a group activity that encouraged the group to overcome fear of failure and challenge their perspective of failure. Client was positive and offered encouragement to peers. Client appeared to benefit from gaining awareness of how fear of failure negatively impacts mental health. Client is showing progress in using thought challenging, but she can continue to increase mood stability.
--- NOTE | 2018-12-01 11:15 | BH.SGPN.GN ---
Behaviors/Verbalizations/Mental Status: [] Eye contact is good. Motor activity is appropriate. Appearance is casual. Speech is Appropriate. Mood is depressed. Affect is flat. Thoughts are linear and logical. No evidence of psychosis. Client Response/Progress/Benefit: [] Pt was an active participant in group discussion and activity. Appeared attentive and Completed worksheet. Group identified strategies to overcome fear of failure which included; increased communication, persistence, asking for help, using a sense of humor, re-evaluating expectations and goals, identifying wants vs needs and redefining failure. On the worksheet pt re-defined failure as; stepping stones towards my goal. Reports that fear of failure impacted her by keeping her from trying and from feeling fulfilled. Identified that fear of failure is currently hold her back from living her best life, succeeding in work, and and in her relationships Benefited from group by identifying how fear of failure has impacted them as well as strategies to overcome fear of failure. Will continue in IOP to maintain safety, increase functioning, and prevent decompensation. Narrative Note: []
--- NOTE | 2018-12-02 09:03 | BH.SGPN.GN ---
Behaviors/Verbalizations/Mental Status: []Client alert and oriented, neatly dressed and groomed. Eye contact good. Motor activity tense. Speech within normal limits. Affect congruent to mood-tearful, mood depressed, sad. Thoughts linear, logical, no signs of hallucinations or delusions. Reviewed client?s symptom tracker. Client indicated 3/5 for suicidal thoughts, but 0/5 for risk. Client denies plan, or intent as of 12/02/18. Client's individual therapist was informed. Client Response/Progress/Benefit: []Client responded well to session, receptive to supportive statements. Client reports feeling ?sad? today as she recently had an appointment with her outpatient therapist and was told that there is ?no cure? for client?s mental health. Client stated, ?she?s a good therapist and she didn?t say it to be mean, but it was hard to hear.? Client received supportive statements from peers who helped client reframe the event. Client shared she connected with a peer?s comment that ?it?s not about avoiding the storm, but how you manage it.? Despite that current stressor, client identified positives and moments of progress. Client stated that instead of isolating and ?be sad? last night, she made herself do active things instead. Client also spent time with a friend last night and shared that it was helpful to talk with her and not feel judged. Client appeared to benefit from processing her current stressor with the group. Progress noted as client utilized opposite action last night to manage her emotions. Client to continue IOP to promote mood stability and reduce suicidal ideations.
--- NOTE | 2018-12-02 10:27 | BH.SGPN.GN ---
Behaviors/Verbalizations/Mental Status: [Client eye contact good, grooming and attire casual and well kempt, motor activity appropriate, speech normal rate and tone, mood reflective and euthymic, congruent and positive affect, thoughts linear and intact, no evidence of delusions or hallucinations] Client Response/Progress/Benefit: [Client receptive of session and did well to remain attentive to discussion and provided insight throughout. Client reflected upon the quote and indicated that she agrees with the idea that we have the power to choose what direction we take next. She challenged fellow participants who indicated that we don?t always choose what happens to us by reflecting that although we may not choose what happens to us, we have the power to decide how we choose to react to the situation. Client provided a personal example related to responding positively to a negative situation. Client appeared to benefit from group discussion regarding what barriers impact ability to ?choose a different path? and make healthier choices. Client reflected that not wanting to put in the effort can keep us ?stuck?. Connected with the ?Chapters of My Life? poem and worked with the group to analyze how various chapters described related to accepting personal role in making positive mental health changes. Client identified that ?different chapters can serve as the bridge to making different choices?. Recommended continued tx to promote gains, reduce anxiety and improve emotion regulation, and prevent decompensating] Narrative Note: []
--- NOTE | 2018-12-02 11:25 | BH.SGPN.GN ---
Behaviors/Verbalizations/Mental Status: [] Eye contact is good. Motor activity is appropriate. Appearance is casual. Speech is Appropriate. Mood is depressed. Affect is flat. Thoughts are linear and logical. No evidence of psychosis. Client Response/Progress/Benefit: [] Pt was an active participant in group discussion and activity. Worked within small group to complete WDEP worksheet. Identified want or goal as I want to improve my relationships with others Evaluated her progress towards want or goal stating that she is currently isolating, avoiding, and over-reating in relationships which is making relationships and her overall mood worse. Developed plan to move herself forward which involves talking to someone wachday and consciously react to them. Will continue in IOP to maintain safety, improve functioning, and increase coping skills. Benefited from group as she was able to evaluate behaviors which are keeping her stuck and develop plan to move forward.
--- NOTE | 2018-12-02 13:17 | BH.MDN ---
Multi-Disciplinary Note - Note 60-min Individual Time Started:: 12:30 Date: 12/02/18 Purpose of session/treatment goals addressed:: Assessed current symptoms. Reviewed progress in IOP. Addressed all treatment plan goals. Eye Contact:: Good Motor Activity:: Appropriate Appearance:: Casual Speech:: Appropriate Mood:: Anxious, Depressed Affect:: Flat Thoughts:: Linear, Logical, No evidence of hallucinations/delusions noted Staff Interventions:: Utilized [place] techiniques to elict change behaviors. Reviewed homework on thoughts challenging. Reframed negative thoughts and perceptions. Client Response:: Pt stated that Friday night and last evening did not go well. Had some insight on her role in past relationships and is begining too see that she may have played a bigger role in unhealthy relationships than she originally thought. Able to see how this insight could positively impact her and her future relationships. Reports shock, guilt, and ruminations. Had noted a 3 on suicidal ideations this AM during check-in. She currently denies any desire to be , suicidal ideations, suicidal intent, or plan. Future-oriented. Protective factors reported. States I often think about dying but I don't want to . In reviewing her thought log she was able to identify unhealthy what if and catastrophizing thoughts. She was also able to challenge these thoughts and come up with more balance thinking. One of the thoughts she was able to challenge was in regards to hopelessness and suicidal thoughts. Smiles and notes improvement in her ability to control negative automatic thoughts. Admits that she struggles with thought challenging in the moment however is improving when she sits down and reviews thoughts after the events. Risks/Concerns:: No risks of concerns noted. Denies any desire to be . Denies active suicidal ideations, plan, or intent. Protective factors. Future-oriented. Smiling at times. Progress Toward Goals/Plan:: Progress noted. Completed homework and is starting to challenge negative automatic thoughts which she stated a week ago she could never do. Praised for ther efforts. Increased insight and awareness regarding BPD and its role in relationships and impulsivity. Fleeting suicidal thoughts in the past few days due to environmental stressors however reports confidence in her ability to challenge and control severity, duration, and frequency of these thoughts. Will continue in IOP to maintain safety, stablize mood, and improve functioning to return to work. Time Stopped:: 13:17
--- NOTE | 2018-12-02 13:32 | BH.MDN_ITS ---
Multi-Disciplinary Note - Note 60-min Individual Time Started:: 12:30 Date: 12/02/18 Purpose of session/treatment goals addressed:: Assessed current symptoms. Reviewed progress in IOP. Addressed all treatment plan goals. Eye Contact:: Good Motor Activity:: Appropriate Appearance:: Casual Speech:: Appropriate Mood:: Anxious, Depressed Affect:: Flat Thoughts:: Linear, Logical, No evidence of hallucinations/delusions noted Staff Interventions:: Utilized [place] techiniques to elict change behaviors. Reviewed homework on thoughts challenging. Reframed negative thoughts and perceptions. Client Response:: Pt stated that Friday night and last evening did not go well. Had some insight on her role in past relationships and is begining too see that she may have played a bigger role in unhealthy relationships than she originally thought. Able to see how this insight could positively impact her and her future relationships. Reports shock, guilt, and ruminations. Had noted a 3 on suicidal ideations this AM during check-in. She currently denies any desire to be , suicidal ideations, suicidal intent, or plan. Future-oriented. Protective factors reported. States I often think about dying but I don't want to . In reviewing her thought log she was able to identify unhealthy what if and catastrophizing thoughts. She was also able to challenge these thoughts and come up with more balance thinking. One of the thoughts she was able to challenge was in regards to hopelessness and suicidal thoughts. Smiles and notes improvement in her ability to control negative automatic thoughts. Admits that she struggles with thought challenging in the moment however is improving when she sits down and reviews thoughts after the events. Risks/Concerns:: No risks of concerns noted. Denies any desire to be . Denies active suicidal ideations, plan, or intent. Protective factors. Future- oriented. Smiling at times. Progress Toward Goals/Plan:: Progress noted. Completed homework and is starting to challenge negative automatic thoughts which she stated a week ago she could never do. Praised for ther efforts. Increased insight and awareness regarding BPD and its role in relationships and impulsivity. Fleeting suicidal thoughts in the past few days due to environmental stressors however reports confidence in her ability to challenge and control severity, duration, and frequency of these thoughts. Will continue in IOP to maintain safety, stablize mood, and improve functioning to return to work. Time Stopped:: 13:17
--- NOTE | 2018-12-03 09:05 | BH.SGPN.GN ---
Behaviors/Verbalizations/Mental Status: []Pt eye contact good, casually dressed, motor activity appropriate, speech normal rate and tone, mood anxious, congruent affect, thoughts linear and intact, no evidence of delusions or hallucinations. Reviewed client?s symptom tracker, no signs of suicidal ideation, plan, or intent as of today. Client Response/Progress/Benefit: []Pt listened attentively to peers, made supportive comments to others, and shared thoughts and feelings throughout session. Pt stated she has a bad day yesterday, but then caught herself with making an all or nothing comment. Pt shared she did have bad moments but was able to sit down in the evening to complete her thought log, process the bad moments from the day, and identify positives from the day. Pt shared she was able to help her son manage his dysregulated emotions by encouraging him to use the sensory tools pt had created for him. Pt stated it can be hard to keep herself regulated and help her son calm down, but she recognizes she is trying. Pt reported she is anxious about this weekend because she has her son and two weeks ago when she had him she was unable to keep her son the whole time because she couldn't manage her anxiety. Pt stated she knows compared to two weeks ago she is in a better state mentally and is hopeful she can do better. Pt demonstrating progress with challenging distorted thoughts in the moment, identifying positives despite experiencing stressors, and generalizing skills learned. Pt to continue IOP level of care to maintain gains, continue use of healthy coping and prevent decompensation. Narrative Note: []
--- NOTE | 2018-12-03 10:13 | BH.SGPN.GN ---
Behaviors/Verbalizations/Mental Status: []Client alert and oriented, neatly dressed and groomed. Eye contact good. Motor activity appropriate. Speech within normal limits. Affect constricted, mood anxious. Thoughts linear, logical, no signs of hallucinations or delusions. Client Response/Progress/Benefit: []Client responded well to session, contributing positively to discussion. Client connected with the quote and shared sometimes the problem is the problem, but we make it worse. Client stated one can have healthy or unhealthy coping skills, but people choose unhealthy coping because it's easy and feels good in the moment. Although unhealthy coping can be easy, client acknowledged that using unhealthy coping skills can turn into self-sabotage and more problems. Client shared once you get so far down you wake up negative. Client stated healthy coping skills take practice and time, but they have more benefits such as mood stability and lower stress. Client participated in the group activity and shared the group struggled at first because they kept making the same mistakes, but once we tried something completely different we did well. The group was able to relate this to trying healthy coping skills in their lives and the rewards that come with it. Client appeared to benefit from increasing awareness of the benefits of healthy coping skills and learning about self-sabotage
--- NOTE | 2018-12-03 11:15 | BH.SGPN.GN ---
Behaviors/Verbalizations/Mental Status: [] Eye contact is good. Motor activity is appropriate. Appearance is casual. Speech is Appropriate. Mood is depressed. Affect is flat. Thoughts are linear and logical. No evidence of psychosis. . Client Response/Progress/Benefit: [] Client was an active participant in group activity and discussion. Pt worked with the group to define the categories of coping skills and give examples of each. Coping skills discussed included distraction, emotional release, grounding, self-love, and thought challenging. Pt along with group members contributed examples of coping skills for each category. Pt was attentive and wrote down all the examples given. Benefited from group by identifying several new types of coping strategies. Will continue in IOP to maintain safety, improve daily functioning to return to work, and increase coping skills. Narrative Note: []
--- NOTE | 2018-12-03 14:48 | BH.MDN ---
Multi-Disciplinary Note - Note 60-min Individual Time Started:: 12:30 Date: 12/03/18 Purpose of session/treatment goals addressed:: Reviewed current symptoms. Assessed current progress in IOP. Addressed treatment plan goals 1 and 3. Eye Contact:: Good Motor Activity:: Appropriate Appearance:: Casual Speech:: Appropriate Mood:: Anxious, Depressed Affect:: Congruent Thoughts:: Linear, Logical, No evidence of hallucinations/delusions noted Staff Interventions:: Utilized [place] techniques to elicit change behaviors. Processed thought log and challenging statements that pt completed for homework. Reviewed schema worksheet which is related to BPD. Client Response:: Pt reports that yesterday was a bad day. Caught herself and actually reframed the thought and pointed out a cognitive distortion stating the whole day wasn't bad and I learned some things. Continues to use thought log and is challenging thoughts and identifying cognitive distortions. Reports that she feels more confident with thought stopping skills which is helping decrease severity of depression. Began to talk about failing at a task yesterday however reminded herself that she didn't fail but rather setbacks are stepping stones to success. Proud of herself for progress however discussed at length stressors yesterday. Developed new strategies and coping skills to use for stressors. Reports frustration at certain tasks. When overwhelmed often has panic attacks and has passive thoughts of . Stated I have thoughts about dying everyday. Denies sucidal ideations, plan, or intent. Again thoughts are passive I'd be better off . Risks/Concerns:: No risks or concerns noted. Pt stated today I thinking about dying or wanting to everyday, however recently its very brief Denies active suicidal ideations as thoughts are more passive. No plan or intent. Future-oriented. Protective factor is son. Progress Toward Goals/Plan:: Progress noted per pt report. Overall increasing her insight, awareness, and coping skills. More active and engaged in group. Continues to struggle with certain stressors outside of program which lead to frustration, panic, and passive thoughts of on a daily basis. Still not functioning at baseline, however is improving. Will continue in IOP to maintain safety, prevent decompensation, and increase functioning to return to work. Time Stopped:: 13:25
--- NOTE | 2018-12-03 15:05 | BH.MDN_ITS ---
Multi-Disciplinary Note - Note 60-min Individual Time Started:: 12:30 Date: 12/03/18 Purpose of session/treatment goals addressed:: Reviewed current symptoms. Assessed current progress in IOP. Addressed treatment plan goals 1 and 3. Eye Contact:: Good Motor Activity:: Appropriate Appearance:: Casual Speech:: Appropriate Mood:: Anxious, Depressed Affect:: Congruent Thoughts:: Linear, Logical, No evidence of hallucinations/delusions noted Staff Interventions:: Utilized [place] techniques to elicit change behaviors. Processed thought log and challenging statements that pt completed for homework. Reviewed schema worksheet which is related to BPD. Client Response:: Pt reports that yesterday was a bad day. Caught herself and actually reframed the thought and pointed out a cognitive distortion stating the whole day wasn't bad and I learned some things. Continues to use thought log and is challenging thoughts and identifying cognitive distortions. Reports that she feels more confident with thought stopping skills which is helping decrease severity of depression. Began to talk about failing at a task yesterday however reminded herself that she didn't fail but rather setbacks are stepping stones to success. Proud of herself for progress however discussed at length stressors yesterday. Developed new strategies and coping skills to use for stressors. Reports frustration at certain tasks. When overwhelmed often has evans ic attacks and has passive thoughts of . Stated I have thoughts about dying everyday. Denies sucidal ideations, plan, or intent. Again thoughts are passive I'd be better off . Risks/Concerns:: No risks or concerns noted. Pt stated today I thinking about dying or wanting to everyday, however recently its very brief Denies active suicidal ideations as thoughts are more passive. No plan or intent. Future- oriented. Protective factor is son. Progress Toward Goals/Plan:: Progress noted per pt report. Overall increasing her insight, awareness, and coping skills. More active and engaged in group. Continues to struggle with certain stressors outside of program which lead to frustration, panic, and passive thoughts of on a daily basis. Still not functioning at baseline, however is improving. Will continue in IOP to maintain safety, prevent decompensation, and increase functioning to return to work. Time Stopped:: 13:25
== END 2018-12-03 23:59 | disposition home or self-care (01) ==
LOC: BHIOP 09:00
PROVIDERS: Family Provider Family Medicine; PCP Family Medicine; Referring Provider Psychiatry & Neurology Psychiatry; Visit Provider Psychiatry & Neurology Psychiatry
DX: F32.89 Other specified depressive episodes (principal); F41.1 Generalized anxiety disorder; F43.22 Adjustment disorder with anxiety; F60.3 Borderline personality disorder; R45.851 Suicidal ideations; F17.210 Nicotine dependence, cigarettes, uncomplicated; Z79.899 Other long term (current) drug therapy; Z91.411 Personal history of adult psychological abuse; Z91.410 Personal history of adult physical and sexual abuse; F12.11 Cannabis abuse, in remission; F14.11 Cocaine abuse, in remission
CPT/HCPCS: 99204; H0035; H2012; H2020; T1002; 90834; 90837

== ENCOUNTER 2018-12-04 09:00 | Outpatient (RCR) | payer MEDICAID, SELFPAY ==
[2018-09-23 08:57] VITALS: BMI 26.2
--- NOTE | 2018-12-04 09:05 | BH.SGPN.GN ---
Behaviors/Verbalizations/Mental Status: [Eye contact is good. Motor activity is appropriate. Appearance is casual, grooming appropriate. Speech is Appropriate rate and tone. Mood is euthymic. Affect is congruent. Thoughts are linear and logical. No evidence of psychosis. Reviewed daily check in sheet and pt denies any active SI, plan, or intent as of this date. ] Client Response/Progress/Benefit: [Pt responded well to session, engaged throughout and open to processing with the group. Pt indicated current emotion as ?happy? and discussed that this is due to being able to better check-in with herself and identify what she needs in the moment. Discussed mental health wins include being able to spend time with her neighbor and engage in opposite action when desiring to isolate. Insight provided on benefits of support for others on her mental health. Additional win noted as being able to communicate with a friend when needing time to practice self-care. Indicated this is also a stressor as her friend was not very receptive and gave pt a hard time about setting a boundary. Pt discussed wanting to further reflect and determine whether this is a positive support for her or not. Appeared to benefit from the support and structure of group environment. Progress noted in improved insight and report of ability to more consistently apply internal coping skills and increased self-awareness. Pt recommended continued IOP tx to prevent decompensation, promote ongoing application of healthy coping skills, and further reduce mental health sx.] Narrative Note: []
--- NOTE | 2018-12-04 10:30 | BH.SGPN.GN ---
Behaviors/Verbalizations/Mental Status: []Client alert and oriented, neatly dressed and groomed. Eye contact good. Motor activity restless, frequently leaving the room. Speech within normal limits. Affect flat- tearful, mood dysthymic. Thoughts linear, logical, no signs of hallucinations or delusions. Client Response/Progress/Benefit: []Client responded well to session, tearful, but receptive to feedback and offering ideas. Client stated that in life there are barriers in front of us and that some of those barriers are external and some are barriers we place in front of ourselves. Client shared she continues to struggle with the external barriers her mental health brings and reported ?it?s hard for me to accept that I?ll never be cure.? The group helped client challenge her negative thinking. Client identified internal barriers that keep people stuck such as negative thinking and not managing emotions. Client shared barriers keep people from their desired mental wellness and progress. Client reported her desired mental wellness is having control of her emotions ?rather than them controlling me,? having less distortions, and being more mindful. Client identified barriers keeping client stuck from her desired reality as distorted thinking, being emotionally labile, and not always having good coping skills. Client identified things she currently doing that are helping her get closer to her desired reality such as using her thought log daily, practicing mindfulness strategies, and taking time every hour to ?check in with myself.? Client appeared to benefit from gaining self-awareness of the barriers keeping her stuck from achieving her desired reality and how she can overcome those barriers.
--- NOTE | 2018-12-04 11:35 | BH.SGPN.GN ---
Behaviors/Verbalizations/Mental Status: []Client alert and oriented, casual dress, hygiene good. Eye contact good. Motor activity appropriate. Speech within normal limits. Affect congruent, mood anxious. Thoughts linear, logical, no signs of hallucinations or delusions. Client Response/Progress/Benefit: []Client engaged throughout session AEB pt contributing thoughts and ideas to discussion and listened attentively to peers. Client active participant during activity in which group members had to identify positive strategies to overcome the various barriers/obstacles that hindered progress. Client identified for the barrier avoidance a strategy that could be helpful is confronting the emotion and situation directly. Client shared for barrier of isolation a strategy is to call someone so are not alone. Client stated for the barrier depression it would be important to celebrate small successes which can give confidence. Client shared the barrier she is going to work on is managing her emotions by staying in the moment and taking time for self-care. Client seemed to benefit from increased repertoire of strategies to help overcome barriers to progress. Narrative Note: []
--- NOTE | 2018-12-04 14:36 | BH.MDN_ITS ---
Multi-Disciplinary Note - Note 30-min Individual Time Started:: 12:45 Date: 12/04/18 Purpose of session/treatment goals addressed:: Reviewed current symptoms. Assessed progress in IOP. Pt verbalized increased depression this AM realted to trauma trigger which we processed. Reviewed crisis plan Eye Contact:: Fair Motor Activity:: Appropriate Appearance:: Casual Speech:: Appropriate Mood:: Depressed Affect:: Flat Thoughts:: Linear, Logical, No evidence of hallucinations/delusions noted Staff Interventions:: Allowed pt to vent. Reviewed progress. Re-framed thoughts. Empathized with her emotions. Developed crisis strategy for this weekend. Client Response:: Pt reports that yesterday went really well for her. Reports that she set boundaries with a friend and completed self-care last evening. Reports that this AM she experienced a trauma trigger related to her miscarriage and divorce. States that it has impacted her and she has had trouble coping. She used several coping strategies including distraction, minfullness, and thought- stopping with minimal benefits. Tearful at times. Insight that she has had improved mood the further she gets from the trigger. Processed her thoughts and emotions with therapist. Developed some strategies and an overall plan to utilize this weekend if continues to decompensate. Denies any suicidal ideations, plan, or intent. States If it gets to that point I always call crisis or go to the ER. Appears more worried that she will get overwhelmed with her responsibilities this weekend. Smiling and engaged more towards the end of the session after therapist was able to not progress and review some strategies to manage emotions. Risks/Concerns:: No risks or concerns noted. Despite emotions related to trauma trigger denies any suicidal ideations, plan, or intent. Contracts for safety. Protective factors reported. Denies passive thoughts of . Progress Toward Goals/Plan:: Progress noted per pt report. Regression today in response to trauma trigger. Utilized coping skills to manage. Continues to be motivated for treatment. Remains hopeful. Able to recognize that setback in mood is not failure and states it can be a stepping stone to success. Will continue in IOP to maintain safety, prevent decompensation, and improve functioning Time Stopped:: 13:15
--- NOTE | 2018-12-07 09:03 | BH.SGPN.GN ---
Behaviors/Verbalizations/Mental Status: []Client alert and oriented, casually dressed. Eye contact good. Motor activity appropriate. Speech within normal limits. Affect flat, mood depressed. Thoughts linear, logical, no signs of hallucinations or delusions. Reviewed client?s symptom tracker. Client indicated 3/5 for suicidal thoughts today, but denied any plan or intent as of 12/07/18. Therapist to communicate client's symptom tracker with her individual therapist. Client Response/Progress/Benefit: []Client responded well to session, engaged in discussion. Client reports feeling disconnected today despite multiple positives over the weekend. Client's positives over the weekend included her child being able to stay with her all weekend and being able to defuse stress during their time together. Client shared it was definitely stressful, but we made it. Client shared she planned better and took time each hour to check in with herself. Client stated although this was a significant mental health win, client stated I felt depressed all weekend. Client reported that she did a good job to use opposite action to prevent isolation and rumination while feeling low this weekend. Client appeared to benefit from pointing out positives from her weekend despite stressors. Progress noted as client has been using coping skills when she recognizes warning signs, but she continues to struggle with cognitive distortions that reinforce depressive symptoms.
--- NOTE | 2018-12-07 10:23 | BH.SGPN.GN ---
Behaviors/Verbalizations/Mental Status: [Client alert and oriented, casually dressed wearing a winter hat. Eye contact good. Motor activity appropriate. Speech normal rate and tone. Affect congruent, mood anxious, euthymic. Thoughts linear, logical, no signs of hallucinations or delusions. ] Client Response/Progress/Benefit: [Client responded well to session, providing positive feedback and input throughout discussion. Client connected with the topic of cognitive distortions and discussed with the group ways in which thoughts can have a positive or negative impact on mental health. Client additionally helped the group identify the different types of cognitive distortions and noted that distortions are ?wrong ways our brain thinks?. Client did well to provide insight regarding her own use of distortions and noted connecting with the use of ?all or nothing thinking?, ?over g-generalizing?, and ?jumping to conclusions?. Client went on to provide various examples of each, expressing sarcastically ?mind reading and fortune telling are my two favorite hobbies?. She went on to discuss noticing how often she engages in mind reading behaviors in her own life and provided an example related to misreading a facial expression and assuming the person didn?t like her. Client appeared to benefit from increasing awareness of how cognitive distortions impact mental health and displayed progress in her ability to connect materials discussed with her own mental health. Client to continue treatment with a focus on identifying and challenging negative thinking patterns, decreasing anxiety, and preventing decompensation. ] Narrative Note: []
--- NOTE | 2018-12-07 14:02 | BH.MDN ---
Multi-Disciplinary Note - Note 30-min Individual Time Started:: 12:00 Date: 12/07/18 Purpose of session/treatment goals addressed:: Assessed current symptoms. Reviewed progress in IOP. Addressed treatment goal1 Eye Contact:: Good Motor Activity:: Restless Appearance:: Casual Speech:: Appropriate Mood:: Depressed Affect:: Flat Thoughts:: Linear, Logical, No evidence of hallucinations/delusions noted Staff Interventions:: Utilized [place] techniques to elicit change behaviors. Allowed pt time to vent frustrations. Provided support and encouragment. Client Response:: Pt reports that she was able to manage her stressors and complete responsibilities this weekend. She was proud of herself however continues to discount the positives and find problems. Increased depression over the weekend. Reports she feels as if she is in a dream-like state. Reports that dream-like state was the norm prior to coming into IOP and she believes it is related to her medications. Medications have been decreased while in IOP however she wants to be off medications all together as she feels they make her feel worse. Agreeable to discuss this with psychiatrist this week. Reports that when she feels depressed, anxious, or in these dream-like states she gets fearful that she is losing control and panics. Admits to passive thoughts of this weekend however denies any active suicidal ideations, plan, or intent. States that she was able to distract herself which helped control passive thoughts of . Continues to state I don't want to kill myself and if I get to bad I will go to the hospital. Did not utilize thought record or challenge thoughts this weekend. Insight that this was helpful last week and may help. Risks/Concerns:: No risks or concerns noted. Denies active suicidal ideations, plan, or intent. Protective factors is her son. Future-oriented stating I know that I will feel better. Contract for safety. Progress Toward Goals/Plan:: Limited progress over the weekend however overall progress since starting IOP. Improving in reframing thoughts as she was doing this independently during the session. Focused on medications making her more depression and feeling in dream-like state. IOP psychiatrist decreased medications however she remains on Topomax. Agreeable to discuss this further with psychiatrist. Fleeting passive thoughts of continue. Struggles with responsibilities however is improving. Daily functioning continue to be decreased. Will continue in IOP to maintain safety, improve daily functioning, and prevent decompensation.
--- NOTE | 2018-12-07 14:19 | BH.MDN_ITS ---
Multi-Disciplinary Note - Note 30-min Individual Time Started:: 12:00 Date: 12/07/18 Purpose of session/treatment goals addressed:: Assessed current symptoms. Reviewed progress in IOP. Addressed treatment goal1 Eye Contact:: Good Motor Activity:: Restless Appearance:: Casual Speech:: Appropriate Mood:: Depressed Affect:: Flat Thoughts:: Linear, Logical, No evidence of hallucinations/delusions noted Staff Interventions:: Utilized [place] techniques to elicit change behaviors. Allowed pt time to vent frustrations. Provided support and encouragment. Client Response:: Pt reports that she was able to manage her stressors and complete responsibilities this weekend. She was proud of herself however continues to discount the positives and find problems. Increased depression over the weekend. Reports she feels as if she is in a dream-like state. Reports that dream-like state was the norm prior to coming into IOP and she believes it is related to her medications. Medications have been decreased while in IOP however she wants to be off medications all together as she feels they make her feel worse. Agreeable to discuss this with psychiatrist this week. Reports that when she feels depressed, anxious, or in these dream-like states she gets fearful that she is losing control and panics. Admits to passive thoughts of this weekend however denies any active suicidal ideations, plan, or intent. States that she was able to distract herself which helped control passive thoughts of . Continues to state I don't want to kill myself and if I get to bad I will go to the hospital. Did not utilize thought record or ch allenge thoughts this weekend. Insight that this was helpful last week and may help. Risks/Concerns:: No risks or concerns noted. Denies active suicidal ideations, plan, or intent. Protective factors is her son. Future-oriented stating I know that I will feel better. Contract for safety. Progress Toward Goals/Plan:: Limited progress over the weekend however overall progress since starting IOP. Improving in reframing thoughts as she was doing this independently during the session. Focused on medications making her more depression and feeling in dream-like state. IOP psychiatrist decreased medications however she remains on Topomax. Agreeable to discuss this further with psychiatrist. Fleeting passive thoughts of continue. Struggles with responsibilities however is improving. Daily functioning continue to be decreased. Will continue in IOP to maintain safety, improve daily functioning, and prevent decompensation.
--- NOTE | 2018-12-08 09:04 | BH.SGPN.GN ---
Behaviors/Verbalizations/Mental Status: [Eye contact is good. Motor activity is appropriate. Appearance is casual. Speech is Appropriate. Mood is dysthymic. Affect is congruent. Thoughts are linear and logical. No evidence of psychosis. No reports of suicidal ideations or intent] Client Response/Progress/Benefit: [Pt receptive of session, engaged throughout and open to processing with the group. Pt indicated current emotion as ?content? and discussed that this is due to feeling more stable and able to regulate her emotions. Shared mental health wins as spending time on self-care watching a movie with her son which helped her to feel more positive and connected with him. Noted it was nice to have a stress free day the previous day. Went on to indicate spending time painting for self-care as well. Stressor indicated as feeling as though she has a ?dark cloud hanging over me?. Receptive of support and thought challenges provided by group. Appeared to benefit from the support and structure of group environment. Progress noted in improved insight and report of ability to more consistently apply internal coping skills despite feeling ?down?. Pt recommended continued tx to prevent decompensation, promote ongoing application of healthy coping skills, and further reduce mental health sx.] Narrative Note: []
--- NOTE | 2018-12-08 10:20 | BH.SGPN.GN ---
Behaviors/Verbalizations/Mental Status: [] Eye contact is good. Motor activity is appropriate. Appearance is casual. Speech is Appropriate. Mood is anxious. Affect is congruent. Thoughts are linear and logical. No evidence of psychosis. Client Response/Progress/Benefit: [] Pt was an active participant in group discussion and activity. Group worked together to identify how emotions impact our communication skills. Group identified that emotions impact communication by; making messages unclear, miscommunication issues or concerns, hinder our ability to listen, decrease our ability to concentrate or understand, emotions cause isolation and avoidance which lead to no communication, negative thinking makes communicate with others more complicated, emotions can cause us to shut down and not communication needs, and decreased focus. Group also identified why its important to communicate during stressful situations which include; communication helps us work through our emotions, communication helps support help us and be aware of our concerns, and communicating emotions during stressful events keeps everyone on the same page. Pt did well in the activity and was able to communicate effectively with peers. Benefited from group as she was able to identify the impact of emotions on communication and the importance of communication during stress and crisis. Will continue in IOP to maintain safety, prevent decompensation, and improve daily functioning. Narrative Note: []
--- NOTE | 2018-12-08 11:20 | BH.SGPN.GN ---
Behaviors/Verbalizations/Mental Status: []Client alert and oriented, neatly dressed and groomed. Eye contact good. Motor activity appropriate. Speech within normal limits. Affect constricted, mood dysthymic. Thoughts linear, logical, no signs of hallucinations or delusions. Client Response/Progress/Benefit: []Client responded well to session, active participant and contributing to discussion. Client further processed the activity from the previous group and stated it is hard for her to communicate her emotions when she does not feel in control. Client appeared to connect with the different zones of alertness and emotional regulation. Client helped the group process what each zone feels like, looks like, as well as what support she needs in each zone to regulate emotions in a healthy way. Client reported she has a hard time finding her ?baseline? but after further processing and discussion, client reported feeling better about recognizing stability. Client stated it is important to have awareness of what zone she is in so that client can cope and avoid retriggering herself. Client reported today she feels like she is in between ?blue and green zones? or between being low energy and stable. Client shared she plans to engage in a pleasurable activity today rather than overwhelm herself with tasks. Client reported belief this will help her feel more energized and content. Client appeared to benefit from increasing self-awareness and setting a small emotional regulation goal today.
--- NOTE | 2018-12-09 11:20 | BH.SGPN.GN ---
Behaviors/Verbalizations/Mental Status: [] Eye contact is good. Motor activity is appropriate. Appearance is casual. Speech is Appropriate. Mood is depressed. Affect is flat. Thoughts are linear and logical. No evidence of psychosis. Client Response/Progress/Benefit: [] Pt was an active participant in group discussion and activity. Pt completed a worksheet where she identified her own personal pitfalls. Along with the group she also identified general pitfalls or obstacles that keep them stuck in Thier life. Obstacles included; being unorganized, lack of a plan, not communicating, fear of failure, not utilizing supports, and letting emotions get in the way of progress. Group worked together to identify strategies to overcome personal and general pitfalls which included; actively participating in mental health treatment, developing and committing to a plan, identifying decision-making and problem solving strategies, reflection on past experiences, identifying coping skills that are effective and not effective, reframing, and challenging negative thoughts. Benefited from identifying personal and general pitfalls and strategies to over these pitfalls. Will continue in IOP to maintain safety, stabilize mood, and improve functioning so she could return to work. Narrative Note: []
--- NOTE | 2018-12-09 13:57 | BH.MDN ---
Multi-Disciplinary Note - Note 60-min Individual Time Started:: 10:15 Date: 12/09/18 Purpose of session/treatment goals addressed:: Pt verbalized during process group this is the lowest I've ever felt. Group pelts skinner felt therapist should review symptoms individually. Eye Contact:: Fair Motor Activity:: Restless Appearance:: Casual Speech:: Appropriate Mood:: Anxious, Depressed Affect:: Congruent Thoughts:: Linear, Logical, Flight of ideas Staff Interventions:: Allowed pt to vent emotions and stressors. Reframed thoughts at times. Utilized [place] techniques to elicit change behaviors. Introduced radical acceptance regarding ruminations. Client Response:: Pt reports that she was very depressed last evening. Continuing to ruminate on past relationship and mistakes. Ruminates on medications, dx, and other aspects of her symptoms. Increased ruminates and depression this week and she is struggling to reframe and challenge thoughts. Feels hopeless. Talked a great deal about the role of control in her relationships and mental health. Through talking reported some insight. Reports getting stuck in her head which is leading to depression. Risks/Concerns:: No risks or concerns noted. Denies suicidal ideations, plan, or intent. Continue to report passive thoughts of which are more frequent since this past weekend. Hopeful. Protective factors. Thoughts are manageble. Progress Toward Goals/Plan:: Some regression this week with limited progress. With increased insight and awareness she has ruminated on past relationships. Is able to point our her role in failed marriage rather than blaming it on others which is shocking and overwhelming. Showing insight that recognizing this is the first step to improving her relationships and communication. Will continue in IOP to maintain safety, prevent decompensation, and stablize mood. Time Stopped:: 11:15
--- NOTE | 2018-12-09 14:21 | BH.MDN_ITS ---
Multi-Disciplinary Note - Note 60-min Individual Time Started:: 10:15 Date: 12/09/18 Purpose of session/treatment goals addressed:: Pt verbalized during process group this is the lowest I've ever felt. Group traffic signal supervisor maintenance felt therapist should review symptoms individually. Eye Contact:: Fair Motor Activity:: Restless Appearance:: Casual Speech:: Appropriate Mood:: Anxious, Depressed Affect:: Congruent Thoughts:: Linear, Logical, Flight of ideas Staff Interventions:: Allowed pt to vent emotions and stressors. Reframed thoughts at times. Utilized [place] techniques to elicit change behaviors. Introduced radical acceptance regarding ruminations. Client Response:: Pt reports that she was very depressed last evening. Continuing to ruminate on past relationship and mistakes. Ruminates on medications, dx, and other aspects of her symptoms. Increased ruminates and depression this week and she is struggling to reframe and challenge thoughts. Feels hopeless. Talked a great deal about the role of control in her relationships and mental health. Through talking reported some insight. Reports getting stuck in her head which is leading to depression. Risks/Concerns:: No risks or concerns noted. Denies suicidal ideations, plan, or intent. Continue to report passive thoughts of which are more frequent since this past weekend. Hopeful. Protective factors. Thoughts are manageble. Progress Toward Goals/Plan:: Some regression this week with limited progress. With increased insight and awareness she has ruminated on past relationships. Is able to point our her role in failed marriage rather than blaming it on others which is shocking and overwhelming. Showing insight that recognizing this is the first step to improving her relationships and communication. Will continue in IOP to maintain safety, prevent decompensation, and stablize mood. Time Stopped:: 11:15
--- NOTE | 2018-12-10 09:05 | BH.SGPN.GN ---
Behaviors/Verbalizations/Mental Status: []Client alert and oriented, neatly dressed and groomed. Eye contact good. Motor activity appropriate. Speech within normal limits. Affect constricted, mood euthymic. Thoughts linear, logical, no signs of hallucinations or delusions. Reviewed client?s symptom tracker. Client indicated a 1/5 for thoughts of suicidal. Client denied any plan, or intent as of 12/10/18. Client Response/Progress/Benefit: []Client responded well to session, receptive to feedback from peers. Client reports feeling ?confused, but happy? today as she is content with some of the progress she made, but she feels anxious about her identity. Client shared her stressor is that she is trying to ?figure out myself and not think so black and white about it.? Client reported she has a long history of negative thinking and now that she has awareness of her distortions she feels overwhelmed at times. The group helped client process her feelings and provided emotional support. Client appeared receptive and appreciate as shown by supportive comments. Client?s current mental health wins include making it to group today because client shared she wanted to cancel and being ?recently enlightened.? Client shared she has started using a thought log to recognize and combat her negative thinking. Client appeared to benefit from receiving support from peers and processing her stressor. Progress noted as client reports using healthy coping skills such as thought challenging negative thoughts and opposite action. However, client continues to struggle with maintaining mood stability.
--- NOTE | 2018-12-10 10:17 | BH.SGPN.GN ---
Behaviors/Verbalizations/Mental Status: [Eye contact is good. Motor activity is appropriate. Appearance is casual and appropriate grooming. Speech is Appropriate. Mood is depressed. Affect is congruent. Thoughts are linear and logical. No evidence of psychosis.] Client Response/Progress/Benefit: [Pt responded well to session, provided input and supportive feedback throughout. Pt appeared to connect with the quote, providing insight that ?ruminating will keep you stuck and prevent you from using what you learn in the future? Pt participated in group discussion regarding mental health benefits of change. Pt identified three small personal changes to improve mental health as : use positive affirmations, engage in more activities I?m confident in, and continue to challenge thoughts. Identified current barriers keeping pt from making those changes to be: reacting based on emotion, lack of motivation, fear of losing relationships or failing, and being unsure of goals. Pt appeared to benefit from gaining awareness of personal changes that would improve mental health and the barriers keeping client stuck. Progress noted in client level of insight regarding current barriers impacting mental health change and how barriers are impacting progress. Continue IOP to further increase healthy coping skills and maintain current gains.] Narrative Note: []
--- NOTE | 2018-12-11 09:05 | BH.SGPN.GN ---
Behaviors/Verbalizations/Mental Status: [Eye contact is good. Motor activity is appropriate. Appearance is casual. Speech is Appropriate. Mood is dysthymic. Affect is congruent. Thoughts are linear and logical, racing. No evidence of psychosis. Reviewed daily check in sheet with no reports of suicidal ideations or intent. ] Client Response/Progress/Benefit: [Client was an active participant in group discussion, listening intently and provided feedback throughout. Emotion for today is neutral. Shared with the group mental health positives of ?being more intentional about social interactions? and indicated that she is attempting to focus on positive and healthy interactions. Described an interaction with a friend in which they went to the [employer] after group on previous date. Shared additionally spending increased time painting and completing self-care activities. Client noted current stressors as feeling physically ill which is impacting her mood.Client is displaying some progress in her ability to engage in healthy behaviors that decrease depression and increase social interaction. Will continue in IOP to increase coping skills, improve emotion regulation, and prevent decompensation. ] Narrative Note: []
--- NOTE | 2018-12-11 10:20 | BH.SGPN.GN ---
Behaviors/Verbalizations/Mental Status: []Client alert and oriented, neatly dressed and groomed. Eye contact fair. Motor activity appropriate. Speech within normal limits. Affect congruent to mood, mood irritable. Thoughts linear, logical, no signs of hallucinations or delusions. Client Response/Progress/Benefit: []Client responded well to session, participating in discussion, but reporting not feeling well. Client engaged in discussion of stress and able to recognize that stress can be positive as it can keep a person safe and focused on a goal. However, if a person does not manage stress it can result in distress. Client stated stress can impact a person physically, mentally, and emotionally. Client participated in identifying current stressors in her life. Client's current stressors include: being a good mom, physical health, managing emotions, and relationships with others. Client stated she is not currently in distress, but she recognized her warning signs for distress to be: panic attacks, suicidal thoughts, and avoidance. Client stated she is current using thought challenging and mindfulness to manage stress. Client shared I still have my bad days, but I'm doing better. Client appeared to benefit from gaining awareness to her current stressors and learning about stress.
--- NOTE | 2018-12-11 11:15 | BH.SGPN.GN ---
Behaviors/Verbalizations/Mental Status: [] Eye contact is good. Motor activity is appropriate. Appearance is casual. Speech is Appropriate. Mood is depressed/irritable. Affect is flat. Thoughts are linear and logical. No evidence of psychosis. Client Response/Progress/Benefit: [] Pt was an active participant in group activity and discussion. She struggled during activity and verbalized this during the group. Was distant and appeared irritable however was able to work through negative emotions. Pt worked with the group to brainstorm barriers to coping with stress which included; using comfortable but ineffective skills, feeling frozen or stuck in the emotion, poor communication of needs/concerns, negative thinking, and focusing on worst case scenario. Along with the group identified strategies which are helping in coping with stress which included; teamwork, being OK with failing, clear and specific communication of needs, wants, and concerns, patience, challenging negative assumptions, being mindful, and developing a plan. Attentive during psycho-education on the four A's of stress (Adapt, alter, avoid, and accept) which are stress management strategies. Benefited from identifying barriers to managing stress and stress management strategies. Will continue in IOP to maintain safety, stabilize emotions, and improve functioning to return to work. Narrative Note: []
--- NOTE | 2018-12-11 13:38 | PN_ITS ---
Progress Note Chief Complaint: The patient is a 28-year old female who is an active participant in the intensive outpatient mental health treatment program at [facility]. She has a long history of depression, anxiety, and has features of borderline personality disorder. History of Present Illness/Interim History: The patient states that she has generally been doing well. She was depressed for 3 or 4 days after having difficulty with a friend and trying to set limits on their relationship. However, her mood has improved. She thinks that the intensive outpatient groups have been very helpful. She does complain of the Topamax she has been taking. She says, I think it brings me down. It makes me more depressed. I also do not like how it makes me feel. She cut down the dose on her own to 50 mg. When she tried to stop it, started to develop dizziness and nausea, and she taking it at 50 mg. She would like to stop it, but wants a more gradual taper. Current Psychiatric Medications: Topiramate 50 mg daily Review of Symptoms: Psychiatry: Improving depression, some situational anxiety. She is not suicidal. There is no psychosis. Constitutional: She is of average build and her weight has been steady. Her energy level has improved. Mental Status Examination: The patient presents as a neatly dressed and groomed woman who wears blue hair and jewelry. She demonstrates good social skills. Thoughts are logical and coherent. Mood has improved. She is not suicidal. There is no psychosis. She is cognitively intact. Diagnoses: Searchlight I: Persistent depressive disorder, generalized anxiety disorder, chronic adjustment disorder with anxiety Searchlight II: Borderline Personality disorder Searchlight III: Nicotine dependence Plan: I am prescribing topiramate 25 mg daily. Patient will try to stop it after 3 days. If some withdrawal symptoms then she will take 25 mg every other day until she is able to stop it. She will continue in the intensive outpatient groups. I will see her again as needed.
--- NOTE | 2018-12-14 09:10 | BH.SGPN.GN ---
Behaviors/Verbalizations/Mental Status: [] Eye contact is good. Motor activity is appropriate. Appearance is casual. Speech is Appropriate. Mood is euthymic. Affect is full. Thoughts are linear and logical. No evidence of psychosis. Reviewed daily check in sheet and no reports of suicidal ideations or intent. Client Response/Progress/Benefit: [] Pt was an active participant in group discussion. Emotion for today is happy. Pt shared that she has several positive this past weekend. Reports increased confidence in her ability to manage her anxiety. She stepped out of comfort zone and spent time with her friend as well as some peers she has never met. Reports that she utilized several skills learned in IOP to help manage her anxiety. She prepared herself prior to leaving the house with affirming statements and thought reframing. She was proud of herself and stated I made the decision because I didn't want anxiety to drive my life anymore. Did not isolate this weekend. Hopeful. Group provided praise and support which was beneficial. Progress noted per pt report. Will continue in IOP to prevent decompensation and maintain safety. Narrative Note: []
--- NOTE | 2018-12-14 10:15 | BH.SGPN.GN ---
Behaviors/Verbalizations/Mental Status: []Client alert and oriented, neatly dressed and groomed. Eye contact good. Motor activity appropriate. Speech within normal limits. Affect congruent, mood euthymic. Thoughts linear, logical, no signs of hallucinations or delusions. Client Response/Progress/Benefit: []Client responded well to session, positive contributions. Client reported viewing things as impossible can negatively impact one?s mental health progress and ?encourage bad choices.? Client stated that if one can challenge fixed thinking it can positively impact mental health. Client reported ?when I do things I?m anxious to do it makes me feel confident and able to do it in the future.? Client appeared to connect with fixed thinking and recognized fixed thinking patterns she uses. Client shared if one continues to have fixed thinking it can ?become your reality.? Client identified some fixed thoughts that have kept client feeling stuck. Client?s thoughts included ?I will never have a normal life and I?m not a good parent.? Client engaged in the group activity and the group did not complete the activity during second group. However, client did not give up and continued to be positive and encouraging to peers. Client appeared to benefit from identifying fixed thoughts that have kept client stuck in negative maintenance cycles. Progress noted as client has been challenging negative thinking that reinforces depressive symptoms. However, client can continue to improve consistent application of coping skills to promote maintenance.
--- NOTE | 2018-12-14 11:16 | BH.SGPN.GN ---
Behaviors/Verbalizations/Mental Status: [Client maintained good eye contact, casually dressed and appropriate grooming, motor activity appropriate, speech normal rate and tone, mood euthymic and positive, affect congruent, thoughts linear, logical, no evidence of delusions or hallucinations.] Client Response/Progress/Benefit: [Client attentive and actively engaged in both discussion and growth mindset reflection activity. AEB Client providing input and taking notes throughout. She worked with the group on identifying self-reflection questions and strategies to reframe fixed mindset thoughts. Participated in reflection on how fixed mindset thoughts the group experienced in the activity impacted ability to complete the task at hand. Client worked with group to identify important components of developing a growth mindset and indicated that this can improve self-esteem and motivation to try new things. Client used cognitive restructuring to reframe previously identified fixed thoughts. Client replaced fixed thought of ?I will never live a normal life? with growth mindset thought of ?Normal is just a word. Although I may have some setbacks b/c of my mental health and other factors, I am capable of overcoming them?. Client benefitted from discussing strategies to promote a growth mindset in daily life and indicated that looking at the evidence for and against a thought will be most personally beneficial. Progress noted in client willingness and ability to successfully replace fixed thoughts and expressed feeling empowered in doing so. Continued IOP tx to prevent decompensation, increase emotion regulation, and continue to promote healthy change behaviors.] Narrative Note: []
--- NOTE | 2018-12-16 09:04 | BH.SGPN.GN ---
Behaviors/Verbalizations/Mental Status: [Eye contact is good. Motor activity is appropriate. Appearance is casual and well-tended to. Speech is an appropriate rate and tone. Mood is euthymic, positive. Affect is congruent, bright. Thoughts are linear and logical. No evidence of psychosis. Reviewed daily check in sheet and no reports of suicidal ideations or intent.] Client Response/Progress/Benefit: [Pt was an active participant in group discussion. Emotion for today is anxious but hopeful. She went on to explain that she feels she has made significant progress since beginning IOP and is doing much better at challenging distorted thoughts ?in the moment?. Reports continuing to utilize thought log for thoughts she struggles to challenge on her own. Client benefited from reflecting upon areas of personal growth and mental health successes. Went on to share spending time with on old friend yesterday which was a positive. Client noted a current stressor as continuing to feel as though she is ?at war with myself? regarding her use of ?all or nothing thinking?. Did well to identify strategies that aid in reducing dichotomous thinking. Will continue to IOP to maintain progress, prevent decompensation, and continue to improve application of thought challenging and healthy coping.] Narrative Note: []
--- NOTE | 2018-12-16 10:15 | BH.SGPN.GN ---
Behaviors/Verbalizations/Mental Status: [] Eye contact is good. Motor activity is appropriate. Appearance is casual. Speech is Appropriate. Mood is depressed. Affect is flat. Thoughts are linear and logical. No evidence of psychosis. Client Response/Progress/Benefit: [] Pt was an active participant in group discussion and activity. Worked together with the group to define conflict which they reported was; two opposing forces, wanting two different outcomes, two different perspectives on same situation, misunderstanding, internal struggles with decisions or emotions, feeling torn, and balancing. Described difference between external conflict and internal conflict. Discussed the benefits of conflict in progressing in relationships and mental health. Pt worked with group to identify barriers to over conflict which included; strong belief in one's perspective or view, miscommunication, one's emotional mood, fear, ramifications, consequences, and negative distortions. Attentive during psycho-education on different types of conflict styles. Pt reports that her conflict style is accomodating and avoidant which impacts her relationships as avoids or delays conflict which leding to problems getting worse. Benefited as she was able to identify and define conflict as well as increase awareness of how conflict style impacts her mental health. Will continue in IOP to maintain safety and prevent decompensation. Narrative Note: []
--- NOTE | 2018-12-16 10:15 | BH.SGPN.GN ---
Behaviors/Verbalizations/Mental Status: []Client alert and oriented, neatly dressed and groomed. Eye contact fair. Motor activity appropriate. Speech within normal limits. Affect constricted, mood irritable. Thoughts linear, logical, no signs of hallucinations or delusions. Client Response/Progress/Benefit: []Client responded well to session, active participant. Client further processed her conflict resolution style. Client reported although she still struggles with being accommodating and avoiding, she has been working on ?facing things? especially internal conflict. Client was encouraged to practice being collaborative during the active. Client was able to listen to others, but also voice her opinions rather than accommodating to other?s wants. Client helped the group identify things that positively and negatively impact conflict resolution. Client agreed with group that ?being too emotionally attached? and making impulsive decisions both negatively impact conflict resolution. Client helped the group identify strategies to better manage conflict such as managing emotions, challenging distortions, and focusing on one issue at a time. Client appeared to benefit from learning conflict resolution strategies and reflecting on her progress. Progress noted as client reports she has been confronting her negative thinking and practicing coping skills. Client to continue IOP to promote maintenance and healthy coping skills.
--- NOTE | 2018-12-17 09:10 | BH.SGPN.GN ---
Behaviors/Verbalizations/Mental Status: [] Eye contact is good. Motor activity is appropriate. Appearance is casual. Speech is Appropriate. Mood is depressed/irritable. Affect is flat. Thoughts are linear and logical. No evidence of psychosis. Reviewed daily check in sheet and no reports of suicidal ideations or intent. Client Response/Progress/Benefit: [] Pt participated in group discussion. Emotion for today is grumpy. Shared that she had a good evening last night with her son. Reports that she did not get overwhelmed. Is collaborating more with her child's father and step-mother regarding discipline and management of her son. She reports feeling that they are starting to parent as a team. More hopeful and optimistic about the future. Reports disruption in sleep which she believes is related to titrating down off medication. Believes sleep issues are leading to feeling irritable. Progress noted per pt report. Will continue in IOP to maintain safety, prevent decompensation, and improve functioning to return to work Narrative Note: []
--- NOTE | 2018-12-17 10:25 | BH.SGPN.GN ---
Behaviors/Verbalizations/Mental Status: [Pt eye contact good, casually dressed, motor activity appropriate, speech normal rate and tone, mood dysthymic, congruent affect, thoughts linear and intact, no evidence of delusions or hallucinations.] Client Response/Progress/Benefit: [Pt receptive of session and engaged throughout AEB providing input and taking notes. Did well to participate in the activity and reflect upon group topic of resilience. Pt appeared to connect with various definitions of resilience provided by the group as well as ideas for how resilience can have positive impacts mental health and wellness. She defined resilience as the ability to ?bounce back? after a difficult situation. Pt engaged in small group discussion about the various strategies that can help strengthen one's resilience. Indicated that keeping things in perspective is an important component of resilience as it ?prevents you from blowing things out of proportion?. Pt seemed to benefit from increased awareness of various components that can contribute to increased resilience. Progress noted in pt ability to identify strategies she is using currently to build resilience. Continued IOP recommended to prevent decompensation, increase healthy skill application and thought challenging to continue to improve sx management. ] Narrative Note: []
--- NOTE | 2018-12-17 16:11 | BH.MDN ---
Multi-Disciplinary Note - Note 45-min Individual Time Started:: 12:15 Date: 12/17/18 Purpose of session/treatment goals addressed:: Reviewed current symptoms. Discussed progress in IOP. Reviewed DSM cross-cutting scales. Addressed treatment plan goals 1,2,and 3 Eye Contact:: Good Motor Activity:: Appropriate Appearance:: Casual Speech:: Appropriate Mood:: Anxious, Irritable Affect:: Congruent Thoughts:: Linear, Logical, No evidence of hallucinations/delusions noted Staff Interventions:: Utilized [place] techniques to elicit change behaviors. Reviewed DSM cross-cutting scales with patient. Client Response:: Pt reports she continues to notice improved confidence and decreased symptoms. She continues to challenge negative thoughts and identify cognitive distortions. She beleives that she is getting better at this skill as she has not had to write down distortions as much as is identifying and challenging in the moment. Tearful at times reports a couple episodes of depressive symptoms and panic. Talked at length regarding fear about the future and not knowing what she wants out of life. Reports that she is motivated by her son and her art however is seeking additional purpose in life through either career or causes. Still ruminating on certain aspects of her relationships and life however this has decreased. Risks/Concerns:: No risks or concerns noted Progress Toward Goals/Plan:: Progress noted per pt report. Pt completed DSM cross-cutting scales as this is week 4 of her IOP treatment. When compared to her DSM scores on admission pt showed a 42% decrease in symptoms. She showed a decreased in all categories including depression and anxiety. Overall progress noted. Pt agreeable with decrease days in IOP weekly as well as decreasing individual sessions. Refer to treatment plan review for more information. Time Stopped:: 13:00
--- NOTE | 2018-12-18 09:03 | BH.SGPN.GN ---
Behaviors/Verbalizations/Mental Status: []Client alert and oriented, casual dress, hygiene tended to. Eye contact fair. Motor activity appropriate. Speech within normal limits. Affect constricted, mood anxious. Thoughts linear, logical, no signs of hallucinations or delusions. Reviewed client?s symptom tracker, no signs of suicidal ideation, plan, or intent as of today. Client Response/Progress/Benefit: []Pt was an passive participant in group discussion, more quiet than usual, though attentive AEB good eye contact and nodding throughout. Emotion for today is anxious. Stressor is having son for the weekend because makes her nervous. Additional win is getting to spend time with her mom this weekend. Pt benefited from supportive and structured group environment. Recommended to continue IOP tx to increase awareness, prevent decompensation, and continue to improve positive coping and anxiety management. Narrative Note: []
--- NOTE | 2018-12-18 11:15 | BH.SGPN.GN ---
Behaviors/Verbalizations/Mental Status: [Pt eye contact good, casually dressed, motor activity appropriate, speech normal rate and tone, mood euthymic, congruent affect, thoughts linear and intact, no evidence of delusions or hallucinations.] Client Response/Progress/Benefit: [Client receptive of session, listened attentively to peers and contributed thoughts and ideas to discussion. Actively provided feedback and supportive challenges to peers. Client identified positive forces that aid in progressing toward mental health goals include: creativity, self-awareness, improving confidence levels, and her son. Client indicated negative forces that prevent progress include: family, poor boundaries, negative thoughts, and fear of failure. Client stated wanting to focus on enhancing her positive force of improving self-confidence levels by continuing to focus on her positives and accomplishing small goals such as cleaning her house. Client seemed to benefit from increased awareness of personal positive and negative forces in life and impact they have on mental health and wellness. Client to continue IOP level of care to decrease anxiety and depression, increase healthy coping and thought challenging, as well as prevent decompensation.] Narrative Note: []
--- NOTE | 2018-12-18 13:14 | PCM.PN.BLA ---
Progress Note Chief Complaint: The patient is a 28-year old female who is an active participant in the intensive outpatient mental health treatment program at [facility]. She has a long history of depression, anxiety, and has features of a borderline personality disorder. History of Present Illness/Interim History: She states that she is generally doing well. Her mood has been good. Her anxiety level is in control. She does complain of continuing problems related to her to her topiramate. At the last session, she had complained of cutting down on her dose of topiramate and experiencing headaches and nausea. I had suggested a slower taper, and told her to try taking topiramate 25 mg for several days and then cutting down to 12.5 mg. She said that currently 12.5 mg she is having significant headaches and nausea. I reviewed her history of headaches, and and it appears that she has been experiencing chronic headaches before she started taking topiramate in October 2017. It appears that the topiramate actually be eating what sounds like high-grade headaches associated with nausea. By cutting down on her dose of topiramate, it is no longer being protective for her migraine headaches. Although she wishes to take as few medicines as possible, suggested that she might be better off continuing to take topiramate 25 mg which allows her to be relatively symptom-free. She expressed some hesitation but I provided supportive therapy. Also suggessted that she may want to consult with a neurologist at some point in the future. Current Psychiatric Medications: Topiramate 12.5 mg daily Review of Symptoms: Psychiatry: Improving depression and anxiety. She is not suicidal. There is no psychosis. He is cognitively intact. Constitutional: He is of average build and her weight has been steady. She is experiencing nausea and headaches. Mental Status Examination: The patient presents as a neatly dressed and groomed woman who wears blue hair and jewelry. She demonstrates good social skills. Her thoughts are logical and coherent. Her mood has improved. She is not suicidal. There is no psychosis. She is cognitively intact. Diagnoses: [] Duson I: Persistent depressive disorder, generalized anxiety disorder, chronic adjustment disorder with anxiety Duson II: Borderline personality disorder Duson III: Likely migraine headaches, nicotine dependence Plan: I am increasing the patient's dose of topiramate back to 25 mg daily. She will continue treatment in the intensive outpatient groups. I will see her again as needed.
--- NOTE | 2018-12-21 16:13 | BH.MTP_ITS ---
Treatment Plan Review Date of Admission:: 11/19/18 Date of Treatment Plan Review:: 12/17/18 Admitting Diagnoses:: Persistent Depressive Disorder. Generalized Anxiety Disorder. Chronic Adjustment Disorder w/ Anxiety Current Diagnoses:: Persistent Depressive Disorder. Generalized Anxiety Disorder. Chronic Adjustment Disorder w/ Anxiety Patient's Response to Treatment:: Pt consistently attends treatment and is an active participatn in both group and indivudal sessions. Presents as motivated to make postive changes in her life. Has followed through with assignments. Status of Current Problems and Symptoms: Pt continues to reports depression and anxiety on a daily basis. Her MH symptoms continue to impact her daily functioning however to a lesser degree than at admission to IOP. Continues to report periods of isolation and sleeping to escape however these have decreased in frequency, severity, and intensitiy as well. Pt completed the DSM-5 Cross Cutting Scales at admission and again today. Per this scale pt had a 42% reduction in symptoms including depression, anxiety, and anger. Thoughts of hurting herself decreased from more than half the days of the week to rare, less than a day a week. Pt reports increased confidence in functioning. Also reports increase in coping skills to manage emotions. While progress has been noted she continues to struggle at times with ruminations, guilty, and fear. A lso continues to isolate when overwhelmed. Recommending that she continue in IOP to prevent decompensation, maintain gains, maintain safety, stablize mood, and improve daily functioning to return to work. Problem #1 Problem Name:: Depression Status of Goals:: Obj #1 Pt has identified more than 3 coping skills to reduce depressive symptoms, however she struggles with identifying triggers to her depression often believing their is no trigger. Obj #2 Pt has identified several negative talk statements and cognitive distortions. Pt has also been able to replace these with more realistic and positive statments. This goals is met. Team Recommendations:: Obj #2 is met. Will continue to work on identifying trigger to depressive symptoms in indivudal counseling and group counseling. Problem #2 Problem Name:: Anxiety Status of Goals:: Obj #1- Able to identify calming skills and problem solving skills for anxiety. Stuggles at times to utilize these skills however marked improvement from admission. Obj #2- Is begining to develop concrete plan however is early in this process as symptoms has just recently begun to stablize. Team Recommendations:: Group counseling continues to be effective. Individual sessions will focus on developing concrete step by step plan to manage anxiety. Problem #3 Problem Name:: Borderline PD Status of Goals:: OBJ #1- Able to identify criteria of BPD and how it impacts her relationships. Has not been able to identify how BPD impacts mood and impulsiveness Team Recommendations:: Will continue in IOP and group counseling. Individual sessions to focus more on impacts of BPD of mood and behaviors and strategies to lessen its impact.
--- NOTE | 2018-12-22 09:05 | BH.SGPN.GN ---
Behaviors/Verbalizations/Mental Status: []Client alert and oriented, neatly dressed and new hair color. Eye contact good. Motor activity appropriate. Speech within normal limits. Affect congruent, mood anxious. Thoughts linear, logical, no signs of hallucinations or delusions. Reviewed client?s symptom tracker, no risk for suicidal ideation, plan, or intent as of 12/22/18. Client Response/Progress/Benefit: []Client responded well to session, providing supportive statements to peers. Client reports feeling ?excited, stressed, good, bad? today. Client?s current stressor is issues with client support and her child currently not having insurance. Client stated, ?when I first heard I was real anxious, but I talked myself through it.? Client shared numerous mental health ?wins? including reporting she had a good weekend, having a job interview today, and spending time with friends. Client reported she spent time with her family at a green party this weekend and ?I had a lot of anxiety, but managed.? Client acknowledged that she has been more consistent with challenging negative thoughts and using coping skills, but she continues to worry about maintaining progress. Client able to connect with another group member who also has this worry, and the group processed and reframed this. Client appeared to benefit from reflecting on positives and connecting with peers. Progress noted as client reports ability to combat negative thinking, but she continues to struggle with mood instability.
--- NOTE | 2018-12-22 10:15 | BH.SGPN.GN ---
Behaviors/Verbalizations/Mental Status: [] Eye contact is good. Motor activity is appropriate. Appearance is casual. Speech is Appropriate. Mood is euthymic. Affect is full. Thoughts are linear and logical. No evidence of psychosis Client Response/Progress/Benefit: [] Pt was an active participant in group discussion and activity. Along with group members pt worked on defining problem. Group identified that a problem is a difficulty matter requiring a solution and something that prevents them from reaching a goal. Attentive during psycho-education on components of a problem which included goals and barriers. Group identified common barriers to problem solving which included; distorted thoughts, toxic relationships, lack of resources, and other limitations. Attentive during psycho-education on strategies for problem-solving through the ABCDE method; which is Asking what the problem is; Brainstorming solutions, Choosing a solution, Doing it, and Evaluate. Group worked through some examples of problems using the ABCDE method. Benefited from identifying barriers to problem solving and learning new strategies to problem solve effectively. Will continue in IOP to maintain gains, improve daily coping skills, and improve daily functioning to return to work. Narrative Note: []
--- NOTE | 2018-12-22 11:15 | BH.SGPN.GN ---
Behaviors/Verbalizations/Mental Status: [Eye contact is good. Motor activity is appropriate. Appearance is casual. Speech is Appropriate. Mood is agitated, anxious. Affect is congruent with mood. Thoughts are linear and logical. No evidence of psychosis.] Client Response/Progress/Benefit: [Pt was an active participant in group activity and discussion, attentively listened and processed with the group. Identifying connections between barriers in activity and those faced when problem-solving in own life. Pt completed problem-solving worksheet and identified current problem impacting mental health as Negative thoughts and fear of failure . Then developed a [id number] plan to address this problem which was reviewed within the small group. Pt identified barriers to overcoming problem include; lack of routine, lack of healthy coping skills, anxiety, and distorted thoughts. Identified steps to reaching goal as: keep a journal with wins, be honest about needs, challenge distorted thoughts using thought log, and do things that increase confident. Benefited from group as she was able to create a personalized plan which identified barriers and steps to work on a mental health problem. Will continue in IOP to maintain safety, increase self-confidence, reduce anxiety, and continue to improve mental health sx management. ] Narrative Note: []
--- NOTE | 2018-12-23 09:10 | BH.SGPN.GN ---
Behaviors/Verbalizations/Mental Status: [] Eye contact is good. Motor activity is appropriate. Appearance is casual. Speech is Appropriate. Mood is anxious. Affect is congruent. Thoughts are linear and logical. No evidence of psychosis. Reviewed daily check in sheet and no reports of suicidal ideations or intent. Client Response/Progress/Benefit: [] Pt participated in group discussions. Emotion for today is anxious and positive. Shared with the group that she went on a job interview yesterday. She is hopeful that she will get the job, however is anxious that her friend will follow through with being a reference for her. Fearful that her friend will not call her potential employer back. Ruminating on her friends and that relationship. Feedback on possible strategies to encourage friend. Insight that she has littel control over her friend's actions. Smiling and hopeful about the job. Progress noted. Will continue in IOP to maintain safety, prevent decompensation, and improve daily functioning. Narrative Note: []
--- NOTE | 2018-12-23 10:16 | BH.SGPN.GN ---
Behaviors/Verbalizations/Mental Status: [Client alert and oriented, casually dressed and appropriately groomed. Eye contact good. Motor activity appropriate. Speech within normal limits. Affect congruent, mood euthymic, thoughtful. Thoughts linear, logical, no signs of hallucinations or delusions. ] Client Response/Progress/Benefit: [Pt responded well to session, engaged throughout activity and discussion. Provided insight regarding topic of social supports and related to input provided by the group. Pt shared that healthy support systems keep us stable and aid in dealing with difficult times. Identified that supports require us to return the support we expect. Pt was engaged during the group activity, provided suggestions to the group, and challenged herself to manage irritation when the group struggled with the task at hand. Appeared to benefit from gaining awareness of barriers that keep from seeking social support as well as practicing in the moment coping skills during activity. Progress noted in ability to use anxiety management skills during activity. Continued tx to prevent decompensation, maintain safety, as well as continue to make progress towards tx goals.] Narrative Note: []
--- NOTE | 2018-12-23 11:20 | BH.SGPN.GN ---
Behaviors/Verbalizations/Mental Status: []Pt alert and oriented, eye contact good, casually and neatly dressed, motor activity appropriate, speech normal rate and tone, mood anxious, congruent affect, thoughts linear and intact, no evidence of delusions or hallucinations. Client Response/Progress/Benefit: []Client semi-active participant AEB client contributing at times to discussion, however listened attentively to others. Client worked with the group to make connections between barriers faced in the challenge activity and strategies for managing these barriers with utilizing social supports in daily life. Client reflected that a personal barrier in using her current supports is not wanting to be a burden. Client contributed to discussion about the different types of support and benefits different types of support can provide. Client worked with the group to identify strategies for improving development of new supports and better utilization of current supports. Client identified she would like to improve spiritual support because she can meet like-minded and accepting people. Client seemed to benefit from identifying a type of support she would like to improve upon and creating actionable steps to promote follow-through. Client to continue IOP level of care to prevent decompensation, increase use of healthy supports and anxiety management skills. Narrative Note: []
--- NOTE | 2018-12-23 14:13 | BH.MDN ---
Multi-Disciplinary Note - Note 45-min Individual Time Started:: 12:15 Date: 12/23/18 Purpose of session/treatment goals addressed:: Reviewed current symptoms. Reviewed progress in IOP. Began to work on development of concrete anxiety managment plan in Treatment rad #2 Eye Contact:: Good Motor Activity:: Appropriate Appearance:: Casual Speech:: Appropriate Mood:: Anxious Affect:: Congruent Thoughts:: Linear, Logical, No evidence of hallucinations/delusions noted Staff Interventions:: Utilized VA techniques to elicit change behaviors. Introduced outline for developing anxiety management plan. Client Response:: Pt reports that she has been anxious all day today. Shared that she had a job interview yesterday that went well. Hopeful that she will be hired. It is a part-time job as she wants to ease back into work and not overwhelm herself. Continues with thought log and challenging negative thoughts. Continues to report anxiety on a daily basis, however notes that her depressive symptoms have decreased. Discussed warning signs to depression and anxiety as well as triggers. She has difficult time identifying warning signs and triggers. Risks/Concerns:: No risks or concerns noted. Progress Toward Goals/Plan:: Pt continues to make progress. Depression has decreased in frequency, severity, and intensity. More confident in her ability to manage her mood as well as with other daily responsibilities. Pt continues to struggle with anxiety reporting ruminating thoughts throughout the day. Mainly ruminates on relationships. Overall noted progress since starting the program. Current plan is for pt to complete a step by step concrete anxiety managment plan which includes identifying warning signs,internal coping skills, external coping skills, and other strategies to implement when getting anxious. Will continue in IOP to maintain safety, increase coping skills, and prevent decompensation. Time Stopped:: 13:00
--- NOTE | 2018-12-24 09:04 | BH.SGPN.GN ---
Behaviors/Verbalizations/Mental Status: [Eye contact is fair to good. Motor activity is appropriate. Appearance is casual and comfortable. Speech is Appropriate. Mood is dysthymic, agitated. Affect is congruent. Thoughts are linear and logical, racing. No evidence of psychosis. Arrived late to group ad did not complete daily check in sheet; however does not appear to be at risk AEB client expressing future orientation, expressing plans to spend time with her son whom is a protective factor for her as well as get back into painting. ] Client Response/Progress/Benefit: [Pt attentive as fellow participants shared providing feedback throughout. Willing to discuss areas of progress as well as stressors with group. Pt noted current mood is sad as she is feeling emotionally exhausted and noted ?I need to get back into doing my thought? as she indicated struggling with consistently challenging thoughts the last few days. Pt went on to discuss ?my stressor is also kind of a win? and shared that she and her ex have been struggling to manage her son?s behaviors in school. Shared an experience in which her son had been kicked out of class and was worried to tell his dad about it. Pt noted that the positive was in her improved ability to calm him down and use the self-regulation skills she?s learned in group with him. Pt discussed actively working to focus on the positives with her son rather than negatives and was able to successfully advocate for her son and get him back into children?s therapy with plans for family therapy as well. Pt. discussed plans to spend time painting after group. Pt recommended continued IOP tx to improve consistency of thought challenge use, decrease sx of depression and low self-esteem, and prevent decompensation.] Narrative Note: []
--- NOTE | 2018-12-24 11:25 | BH.SGPN.GN ---
Behaviors/Verbalizations/Mental Status: []Client alert and oriented, disheveled appearance, no makeup or hair done which is not normal for client. Eye contact fair. Motor activity appropriate. Speech within normal limits. Affect flat, mood depressed. Thoughts linear, logical, no signs of hallucinations or delusions. Client Response/Progress/Benefit: []Client responded well to session, participating, but less vocal than previous groups. Client appeared to connect with maintenance cycles and recognized how negative thinking can keep a person stuck. Client identified a negative thought that has kept her stuck. Client?s thought was ?I?m not able to cope.? Client shared she is currently thinking this way today and it has led to increased depression, feeling worse, and ?discounting all the positives.? Client also shared in the past this thought has led to ?worse coping.? Client recognized that this thought is unrealistic as client reported ?I am cable of coping, I have learned skills.? Client able to reframe the thought to ?I am cable of coping in certain ways and I?m getting better at it.? Client shared this thought would improve her mental health because it would help her be more positive, look for healthy ways to cope, and deal with stressors better. Client appeared to benefit from practicing challenging negative thinking. Client has made progress in implementing healthy coping skills to reduce depression and manage stress, but today she reports increased negative thinking and depressive symptoms. Client to continue IOP to prevent decompensation and increase mood stability.
--- NOTE | 2018-12-28 12:59 | BH.DS_ITS ---
Discharge Summary - Demographics Date of Admission:: 11/19/18 Discharge Date: 12/24/18 Presenting Problems at Admission:: Pt is a 28 year old female. Hx of Bipolar and MDD. Most recent hospitlization on 09/23/18 to [facility] for suicidal ideations with plan to overdose on her medications. Triggers were recent divorce and anniversary of miscarriage. Two previous psychiatric admissions in 2016 and 2014 both involving relationships changes. Denies active suicidal ideations during pre-admission intake and during this assessment. She reports that she has been experiecing daily SI for several months. Hx of self-injurious behaviors. Hx of substance abuse however currently sober. Endorses decreased ability to function, loss of 2 recent jobs due to MH symptoms, difficulty completing daily responsibilities (bills, cleaning), panic attacks, passive thoughts of , mood swings, and overall difficulty managing emotions. Others symptoms reported are isolation, anhedonia, ruminations, lack of purpose, decreased energy, decreased motivation, and conflicts in relationships. Denies any psychosis or HI. Endorses mild paranoia that others are spying on her. Discharge Diagnoses:: Diagnosis #1:: Persistent Depressive Disorder. Diagnosis #2:: Generalized Anxiety Disorder. Diagnosis #3:: Chronic Adjustment Disorder with anxiety Reason for Discharge:: [facility] the [facility] ER for SI and was admitted to [facility] for Psychiatry - Treatment Progress During Treatment & Response: Pt has made significant progress while in treatment. Refer to recent treatment plan review. Little information regarding the specifics or trigger to SI or hospitilization however per reports stressor was related to conflicit with friend. Issues Still to be Addressed:: Crisis managment, depression, boundaries, and anxiety Discharge Recommendations/Instructions:: Spoke with pt briefly this AM. She plan on returning to [facility] and [facility] upon her discharge from inpatient psych. Discharge Handout: Complete Discharge Handout with client on aftercare options and continuity of care.
== END 2018-12-24 14:00 ==
LOC: BHIOP 09:00
PROVIDERS: Family Provider Family Medicine; PCP Family Medicine; Referring Provider Psychiatry & Neurology Psychiatry; Visit Provider Psychiatry & Neurology Psychiatry
DX: F32.89 Other specified depressive episodes (principal); F41.1 Generalized anxiety disorder; F43.22 Adjustment disorder with anxiety; F60.3 Borderline personality disorder; F17.210 Nicotine dependence, cigarettes, uncomplicated
CPT/HCPCS: 90833; 99214; H0035; H2012; H2020; 90832; 90834; 90837

== ENCOUNTER 2018-12-24 20:35 | Emergency (ER) | payer MEDICAID, SELFPAY ==
[2018-09-23 08:57] VITALS: BMI 26.2
[2018-12-24 20:36] VITALS: BP 112/67; PULSE 95; RESP 18; TEMP 36.6; O2SAT 95; BMI 27.2
--- NOTE | 2018-12-24 20:50 | ED.RN ---
PT ADMITS TO FEELING SUICIDAL FREQUENTLY, TODAY OUT IN HOSPITAL PARKING LOT CONTEMPLATING TAKING ALL OF HER TOPAMAX. 1:1 SITTER PRECAUTIONS INITIATED.
[2018-12-24 21:25] LABS: Absolute Lymphocyte Count 3.78 X10^3/ul (0.83-4.51); Absolute Neutrophil Count 4.2 X10^3/uL (2.0-7.7); Basophil# 0.07 X10^3/uL; Basophil% 0.8 % (0-1); Eosinophil# 0.55 X10^3/uL; Eosinophils% 6.2 % (0-5); Hematocrit 42.3 % (37-47); Hemoglobin 14.3 g/dl (12.0-15.0); Lymphocyte # 3.78 X10^3/ul (4.0); Lymphocyte % 42.3 % (19-41); Mean Corp Hgb Conc 33.8 g/gl (32-36); Mean Corpuscular Hgb 32.1 pg (27.0-32.0); Mean Corpuscular Volume 95.1 fL (81-99); Monocyte# 0.29 X10^3/uL; Monocyte% 3.2 % (0-10); Neutrophil # 4.23 X10^3/uL (2.7-7.7); Neutrophil % 47.3 % (47-70); POSITIVE COUNT NO; POSITIVE DIFFERENTIAL NO; POSITIVE MORPHOLOGY NO; Platelet Count 271 K/mm3 (150-450); RBC Distribution Width CV 12.8 % (11.6-14.6); RBC Distribution Width SD 44.2 fl (35.1-43.9); Red Blood Count 4.45 M/mm3 (4.2-5.4); White Blood Count 8.9 K/mm3 (4.4-11.0)
[2018-12-24 21:38] LABS: Anion Gap 6 (5-15); BUN 11 mg/dL (7-18); BUN/Creat Ratio 11.9 RATIO (10-20); Calcium,Total 8.3 mg/dL (8.5-10.1); Chloride 110 mmol/L (98-107); Creatinine, Serum 0.92 mg/dL (0.55-1.02); EST Glomerular Filtration Rate 77 mL/min (>60); Est Glom Filt Rate - Afr Amer 94 mL/min (>60); Estimated Creatinine Clearance 82.65 ml/min; Glucose 132 mg/dL (74-106); Potassium 3.6 mmol/L (3.5-5.1); Sodium Level 139 mmol/L (136-145)
--- NOTE | 2018-12-24 21:45 | CM.ED ---
SOCIAL WORK NOTE PATIENT PRESENTS TO ED WITH SUICIDAL IDEATION. DISCUSSED CASE WITH DR. BOWERS. PATIENT REQUIRING CRISIS EVALUATION. CRISIS TO EVAL ONCE PATIENT MEDICALLY CLEARED. ARTHUR JUNIOR, PRINTED CIRCUIT BOARD PCB DESIGNER, GAS APPLIANCE MECHANIC.
[2018-12-24 21:52] LABS: Pregnancy, Serum, hCG Quali. NEGATIVE Negative (0-9 Nonpreg)
[2018-12-24 21:53] LABS: Amphetamine Urine VISTA NEGATIVE (<1000 ng/mL); Barbiturate Urine VISTA NEGATIVE (< 200 ng/mL); Benzodiazepine Urine VISTA NEGATIVE (< 200 ng/mL); Cocaine Urine VISTA NEGATIVE (< 300 ng/mL); Ecstacy Urine VISTA NEGATIVE (< 500 ng/mL); Methadone Urine VISTA NEGATIVE (< 300 ng/mL); PCP Urine VISTA NEGATIVE (< 25 ng/mL); THC Urine VISTA NEGATIVE (< 50 ng/mL); Vista UDS pH Range 6
--- NOTE | 2018-12-24 22:12 | NURSING ---
CALLED CRISIS TO SEE THIS PT
--- NOTE | 2018-12-24 22:40 | ED.RN ---
CRISIS ON SITE
--- NOTE | 2018-12-24 23:01 | ED.DCSUM_ITS ---
- ER Visit Summary Date of Service: 12/24/18 Chief Complaint: Suicidal ideation History of Present Illness: The patient is a [address] Brito and the counseling center. Currently she is a patient in the intensive outpatient treatment here at the hospital. She reports that she saw her counselor today. She states that she did not speak with her about her suicidal thoughts and they began after the meeting. Tonight she was driving around with a bottle of pills thinking of overdosing. She reports that she is currently not on any antidepressants because they make me crazy. Physical Examination: Vitals: Stable. Afebrile. General: Well-nourished and well-developed. Head: Normocephalic atraumatic. Neck: Supple, no lymphadenopathy. No JVD. Nontender. Cardiovascular: Regular rate and rhythm. No murmurs. Respiratory: No respiratory distress. Clear to auscultation bilaterally. Abdominal: Soft, nontender, nondistended, normal bowel sounds. No guarding, rebound, or peritoneal signs. Back: Nontender. Extremities: Nontender, no edema. Skin: Normal color, no rash. Neurologic: Alert and oriented ?3. Cranial nerves II through XII are intact. Normal strength and sensation. Mental status exam: Patient appears their stated age. Good posture and grooming. Good eye contact. Normal rate, volume, and latency of speech. No homicidal ideation. No auditory or visual hallucinations. Flow of thought is logical. Insight and judgment is fair. Test Results: CBC shows lymphocytes 42 and eosinophils of 6. Chem-7 shows a chloride of 110, glucose 132, calcium 8.3. test is negative. Tox screen is normal. Blood alcohol level 0. Emergency Department Course and Treatment: Patient is resting comfortably in the emergency department without complaint. Treatment Plan: Patient was discussed with counseling center. They have seen her in the emergency department and are in the process of getting her transferred to a psychiatric facility. Disposition: Pending Impression: 1. Suicidal ideation. This note was generated with [employer] dictation software. It may contain incorrect words, spelling, and punctuation that were not noted in review of the chart prior to signing ED Disposition - Plan for ED Patient: Referrals: Tangela Brito DO [Primary Care Provider] -
--- NOTE | 2018-12-24 23:14 | ED.RN ---
PT HAS CELL PHONE AT BEDSIDE. THIS RN EXPLAINED PT CAN KEEP CELL PHONE IF IT DOESN'T CAUSE ANY AGITATION. PT GERSON HAS BOX OF TAMPONS IN ROOM, WEARING UNDERWEAR SHE IS HAVING HER PERIOD.
[2018-12-25 01:00] VITALS: BP 109/64; PULSE 103; RESP 18; O2SAT 97
[2018-12-25] MEDS: Topiramate 25 MG Tablet PO (01:23)
[2018-12-25 03:00] VITALS: RESP 18
[2018-12-25 03:41] VITALS: RESP 18
[2018-12-25 04:00] VITALS: RESP 14
[2018-12-25 05:00] VITALS: RESP 14
[2018-12-25 06:10] VITALS: BP 109/64; PULSE 84; RESP 16; O2SAT 98
== END 2018-12-25 06:16 ==
LOC: ED 21:23
PROVIDERS: Emergency Provider Emergency Medicine; Family Provider Family Medicine; PCP Family Medicine
DX: R45.851 Suicidal ideations (principal); F41.9 Anxiety disorder, unspecified; F32.9 Major depressive disorder, single episode, unspecified; Z72.0 Tobacco use
CPT/HCPCS: 36415; 80048; 80307; 80320; 84703; 85025; 99285; G0480

== ENCOUNTER 2018-12-31 08:50 | Outpatient (RCR) | payer MEDICAID, SELFPAY ==
--- NOTE | 2018-12-31 09:01 | BH.SGPN.GN ---
Behaviors/Verbalizations/Mental Status: [Eye contact is good appearing to be holding back tears. Motor activity is appropriate. Appearance is disheveled, hair appearing to be dirty. Speech is Appropriate. Mood is distracted and depressed. Affect is congruent. Thoughts are linear and logical. No evidence of psychosis. ] Client Response/Progress/Benefit: [Pt attentive and well engaged in group discussion, provided feedback and making connections with peers throughout. Emotion for today is disoriented and indicated this is due to readjusting after being discharged from inpatient hospitalization earlier this week. Client went on to share that ?a really bad day? had resulted in her being placed on the inpatient psychiatric unit the previous week, but that she knows this isn?t starting over and that just as with addiction, she believes relapse can be part of mental health recovery. This displays continued progress in challenging negative thought patterns. 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 Additionally, noted that this will allow her to ?ease back into work? and continue to work on mental health. Will continue in IOP to maintain safety, increase distress tolerance skills, and improve emotion regulation] Narrative Note: []
--- NOTE | 2018-12-31 10:20 | BH.SGPN.GN ---
Behaviors/Verbalizations/Mental Status: []Client alert and oriented, neatly dressed and groomed. Eye contact good. Motor activity appropriate. Speech soft. Affect congruent, mood anxious. Thoughts linear, logical, no signs of hallucinations or delusions. Client Response/Progress/Benefit: []Client active participant, providing input throughout session and attentive to peers. Client connected with the topic of failure and famous people that have overcome setbacks. Client reported can manage setbacks by not allowing the setback to define you. Client stated she thinks she had a setback recently because she was progressing but then self-sabotaged because not used to doing well. Client stated people tend to be harder on their self and give other people jules. Client stated to her failure is a stepping stone to success however she struggles with believing this definition when actually fails because focuses on the negative. Client engaged in a group activity that encouraged the group to overcome fear of failure and challenge their perspective of failure. Client was positive and provided verbal direction to group members. Client appeared to benefit from gaining awareness of how fear of failure negatively impacts mental health. Client is showing progress in increased awareness of what led to her self-sabotage behavior. Pt to continue IOP level of care to improve consistent application of skills outside treatment environment, continue to identify and challenge distorted thoughts and prevent decompensation. Narrative Note: []
--- NOTE | 2018-12-31 11:19 | BH.SGPN.GN ---
Behaviors/Verbalizations/Mental Status: []Client alert and oriented, disheveled appearance, hygiene fair. Eye contact fair. Motor activity appropriate. Speech within normal limits. Affect flat-tearful at times, mood dysthymic. Thoughts linear, logical, no signs of hallucinations or delusions. Client Response/Progress/Benefit: []Client responded well to session, active at times, but also withdrawn at times. Client further processed the group activity and shared that asking for help and not getting defeated by setbacks helped the group accomplish the activity. Client completed the fear of failure worksheet and reported that fear of failure is keeping her from happiness, success in relationships, and ?a normal life.? Client reported her barriers for overcoming her fear of failure are feeling overwhelmed by barriers, fear of disappointing others, and mental health. Client was using self-deprecating talk, minimizing progress she had made before her recent setback. With elicitation, client shared she has been able to bounce back from setbacks in the past and the positive thing she has learned from past failures is ?I can and should ask for help? and that setbacks are not absolute. Client selected a goal to help her overcome her fear of failure. Client?s goal is to practice positive affirmations again. Client appeared to benefit from gaining awareness and setting a goal to reduce fear of failure. Client?s first day back in IOP after going inpatient. To continue IOP to prevent decompensation and maintain safety.
--- NOTE | 2018-12-31 14:10 | BH.COMM_ITS ---
Communication Note - Communication with Client Communication Note: Therapist met with client to complete initial intake p aperwork. Client denies any significant changes since discharging from the hospital. Client denies any suicidal ideation, plan, and intent.
--- NOTE | 2018-12-31 14:26 | BH.MDN ---
Multi-Disciplinary Note - Note 45-min Individual Time Started:: 12:15 Date: 12/31/18 Purpose of session/treatment goals addressed:: Reviewed events that led to recent psychiatric admission. Discussed current symptoms. Began to talk about treatment plan. Eye Contact:: Fair Motor Activity:: Restless Appearance:: Casual Speech:: Appropriate Mood:: Anxious, Depressed Affect:: Flat Thoughts:: Linear, Logical, No evidence of hallucinations/delusions noted Staff Interventions:: Utilized NE techniques to elicit change behaviors. Client Response:: Pt reports that she became overwhelmed on 12/24/18 and began to have suicidal ideations with plan to OD. Reports that she drove herself to the ER and was admitted to [facility] Psychiatry. Reports that her suicidal thoughts began to subside 24 hours after admission. Trigger to thoughts were related to her friend not following through with important request by patient, fear of being alone that weekend, and fear of upcoming changes. Admits that she did not disclose this to IOP team because I wanted you to think I was doing better. Able to see how keeping concerns to herself impacts her progress. Reports that she has cut off ties with her toxic friend. Currently has plans to spend some time with other support tonpurnima. Able to identify the 3 triggers that led to crisis and SI. Currently denies any suicidal ideations, plan, or intent. Reports being motivated to return to IOP. Risks/Concerns:: No risks or concerns reported. Denies suicidal ideations, plan, or intent. Denies any desire to be . Contracts for safety. Protective factors. Future-oriented. Progress Toward Goals/Plan:: Pt reports progress since recent admission. Pt reports thoughts of being a failure due to recent hospitalization. Insight into number of stressors which led to re-admission. Able to reframe failure. Overall plan is to re-engage in IOP treatment with a focus on safety planning and crisis management. Time Stopped:: 13:00
--- NOTE | 2019-01-01 10:20 | BH.SGPN.GN ---
Behaviors/Verbalizations/Mental Status: [] Eye contact is good. Motor activity is appropriate. Appearance is casual. Speech is Appropriate. Mood is depressed. Affect is flat. Thoughts are linear and logical. No evidence of psychosis. Client Response/Progress/Benefit: [] Pt was an active participant in group discussion and activity. Worked with the group to identify negative coping skills which increase MH symptoms such as; addiction, isolation, avoidance, sleeping to escape, anger outbursts, and impulsive behaviors. Group also identified barriers or obstacles that keep us in unhealthy coping skills such as; lack of awareness of healthy coping, immediate gratification, unhealthy feels comfortable, challenging to change what we are used too, being in negative relationships, and distorted thinking. Participated in experiential activity and processed the activity with the group. Through processing of activity group identified some strategies which helped them overcome barriers during the activity. Able to identify how strategies used such as communication, focus, and mindfulness could also be beneficial positive coping skills. Started to categorize internal vs external coping skills. Benefited from group through identification of unhealthy coping skills, barriers to overcoming unhealthy coping skills, psycho-education on external vs internal coping skills, and coping strategies. Will continue in IOP to maintain safety, improve functioning, decrease depression. Narrative Note: []
--- NOTE | 2019-01-01 11:20 | BH.SGPN.GN ---
Behaviors/Verbalizations/Mental Status: []Pt eye contact good, casually dressed, motor activity appropriate, speech normal rate and tone, mood anxious, congruent affect, thoughts linear and intact, no evidence of delusions or hallucinations. Client Response/Progress/Benefit: []Pt engaged during session as evidenced by providing input throughout discussion and attentively listened to others. Pt identified several healthy coping skills throughout group brainstorm. Pt identified she is willing to practice the following coping skills to increase her healthy skills toolkit: cleaning, stretching/walking, laughing, positive affirmations, and thought challenge by asking - what would you say if someone you loved had those thoughts. Pt seemed to benefit from increasing repertoire of healthy coping skills. Pt has awareness of healthy coping but continues to struggle with utilizing skills when needed. Pt to continue IOP level of care to continue utilization of healthy coping, challenge negative thoughts and prevent decompensation. Narrative Note: []
--- NOTE | 2019-01-01 11:30 | BH.NA ---
Physical Data - Height/Weight Height: 1.65 m Weight:: 74.389 kg Weight in Pounds: 164.0 lbs Current Medication Compliance - Medication Compliance Do you take your medication as prescribed?: No Do you need assistance with taking medication?: No Have you had side effects from medication?: No Nutritional History - Appetite Nutritional Instructions:: If client shows signs of a swallowing problem, weight change of 10 pounds or more in the last month, or is on a diabetic diet, the physician will review and request a dietitian consult, as appropriate. All unintentional weight loss will be referred to the physician for decision on need for dietitian consult. Describe your appetite:: Fair Have you noticed a change in your eating habits lately?: Yes - Client notes that her appetite has not increased, but weight is up. Functional Assessment - Sleep Pattern Describe any problems with sleeping: Continues to oversleep, but this is improving. - Activities Motor Activity:: Functional Sensory/Communication Assess - Communication Problems What is your primary language?: Qatari Medical Problems/History - Female Reproductive Do you think you may be ?: No Mental Status Summary - Mental Status Significant Findings/Observations on Appearance and Mood:: Sushma is A&Ox4, cooperative with interview, easily engaged, and conversational. She is casually dressed with appropriate grooming and hygiene. Speech is clear and of regular rate and volume. Mild anhedonia and full affect. Client is optimistic and cheerful, noting that she feels really good today after being in the hospital. Suicide Assessment - Suicidal Ideation Are you currently or have you been suicidal in the past?: Yes Suicidal Intentional Rating Scale (SIRS): Suicidal thoughts (past) Physician Notification: If Active suicidal thoughts/Will not contract for safety is checked, contact physician and document in the Physician Notification section below. Past Psychiatric History - Treatment Hx Describe (age, circumstance, etc) any past hospitalizations: [facility] 01/03/19-12/30/18 Fall Risk Assessment - Age Age: Less than 60 - Mental Status Mental Status: Willing & able to ask for assistance when needed - Physical Status Physical Status: No problems - Impairments Impairments: None - Elimination Elimination: Continent AND independent - Gait or Balance Gait or Balance: Walks independently - Hx of Falls History of falls in the past 6 months: No known history - Medications/Substances Medications/substances used within the past 24 hours or ordered to administer: 1-2 of the medications/substances listed above - Total Score Total Points:: 1 - anticonvulsant Physician Notification - Physician Notification Physician Notified: Elijah De Guzman Method of Notification: Face to Face Comments: treatment planning discussion RN Summary of Impressions - Impressions Recommendations: Include psychiatric and medical issues, treatment planning recommendations, and discharge planning needs. - Level of Care How do the client's current symptoms and functional deficits support need for this level of care?: Client was admitted to inpatient facility ([facility]) for SI; discharged 2 days ago and denies current SI or passive thoughts of . The patient notes ongoing oversleeping and isolation as a coping skill. She reports decreased appetite. Sushma is struggling with not having custody of her kids. She does report labile moods.
--- NOTE | 2019-01-01 15:38 | PCM.HP.BLA ---
History and Physical Date of Admission: 12/31/18 Chief Complaint: The patient is a 28-year old female being readmitted to the intensive outpatient mental health treatment program at [facility]. She has a long history of depression, anxiety and borderline personality disorder. She was admitted to the [facility] for suicidal thoughts and was actively in our program prior to her hospital admission. History of Present Illness: The patient was actively in our intensive outpatient program at the time of her hospital admission. Said that her last group of the week was on and she was admitted to the hospital on . Said that she was doing fairly well out in our program earlier in the day. However she then became stressed out. She had an interaction with a friend in which her friend did not do what she had asked. She felt rejected. She admitted that she over reacted. Is also looking forward to being alone for 4 days and she has a hard time being alone. Son was out of the home. So felt stressed out at the thought of having to get a job when she completed our program. He felt totally stressed out and could think of no way to cope with her stress. She started to feel suicidal and had herself admitted to the hospital. She was discharged on 12/30 and is now returning to our program. He is currently doing fairly well. She has a long history of problems with depression, mood swings and anxiety. Please see my prior admission summary for details. Past Psychiatric History: See prior admission summary Current Psychiatric Medications: Topamax 25mg daily Medical History: Weight. She smokes 1 pack of cigarettes per day. Allergies: Adverse reactions to Depakote and Abilify. Family Psychiatric History: Prior admission summary Personal/Social History: See prior admission summary Review of Systems: Psychiatry: History of depression, anxiety and mood swings as per HPI. She is not currently suicidal. There is no active psychosis. She is cognitively intact. Constitutional: She is overweight and her weight has been steady. Her energy level has improved. Neurological: She has a history of migraine headaches. All other systems reviewed and are negative. Examination: The patient presents as a pleasant woman of overweight build who is neatly dressed and groomed. She demonstrates good social skills. Her speech is fluent and spontaneous. Her language is intact. Her judgment and insight and be very poor. Affect is cordial and appropriate. No hallucinations or delusions and she is not actively suicidal. Diagnoses: [] [place] I: [] Persistent depressive disorder; DANA, chronic adjustment disorder with anxiety [place] II: Borderline personality disorder [place] III: [] Overweight, nicotine dependence Plan: She does not wish to make any changes in her psychiatric medicines. I am continuing Topamax 25 mg daily. Will participate in the intensive outpatient groups. I will see her again for follow-up.
--- NOTE | 2019-01-01 15:39 | BH.MDN_ITS ---
Multi-Disciplinary Note - Note 45-min Individual Time Started:: 12:15 Date: 12/31/18 Purpose of session/treatment goals addressed:: Reviewed events that led to recent psychiatric admission. Discussed current symptoms. Began to talk about treatment plan. Eye Contact:: Fair Motor Activity:: Restless Appearance:: Casual Speech:: Appropriate Mood:: Anxious, Depressed Affect:: Flat Thoughts:: Linear, Logical, No evidence of hallucinations/delusions noted Staff Interventions:: Utilized GA techniques to elicit change behaviors. Client Response:: Pt reports that she became overwhelmed on 12/24/18 and began to have suicidal ideations with plan to OD. Reports that she drove herself to the ER and was admitted to [facility]. Reports that her suicidal thoughts began to subside 24 hours after admission. Trigger to thoughts were related to her friend not following through with important request by patient, fear of being alone that weekend, and fear of upcoming changes. Admits that she did not disclose this to IOP team because I wanted you to think I was doing better. Able to see how keeping concerns to herself impacts her progress. Reports that she has cut off ties with her toxic friend. Currently has plans to spend some time with other support tonpurnima. Able to identify the 3 triggers that led to crisis and SI. Currently denies any suicidal ideations, plan, or intent. Reports being motivated to return to IOP. Risks/Concerns:: No risks or concerns reported. Denies suicidal ideations, plan, or intent. Denies any desire to be . Contracts for safety. Protective factors. Future-oriented. Progress Toward Goals/Plan:: Pt reports progress since recent admission. Pt reports thoughts of being a failure due to recent hospitalization. Insight into number of stressors which led to re-admission. Able to reframe failure. Overall plan is to re-engage in IOP treatment with a focus on safety planning and crisis management. Time Stopped:: 13:00
--- NOTE | 2019-01-01 15:40 | BH.MDN ---
Multi-Disciplinary Note - Note 30-min Individual Time Started:: 12:20 Date: 12/22/18 Purpose of session/treatment goals addressed:: Assessed current symptoms. Reviewed progress in IOP. Began safety/crisis plan. Eye Contact:: Fair Motor Activity:: Restless Appearance:: Casual Speech:: Appropriate Mood:: Anxious, Depressed Affect:: Congruent Thoughts:: Linear, Logical, No evidence of hallucinations/delusions noted Staff Interventions:: Utilized SC to elicit change behaviors. Introduced and began to work on safety plan/ Client Response:: Pt reports feeling tired today. Was active in group and reports smiling a great deal today. Continues to reports depression however states I'm looking forward to this weekend. Frustrated as she had to talk with psychiatrist and nurse today about her recent re-admission which makes her feel like a failure. Able to reframe with direction. We discussed the purpose of the safety/crisis plan and how to utilize it. She was given a plan to begin to work on. Will review this on Friday. Reports depression as 4 on a scale of 1-10 with 10 being the worst. Denies any suicidal thoughts, plan, or intent. Denies any wish or desire to be . Smiles at times stating I'm good with that. Risks/Concerns:: No immediate risks or concerns. Denies any suicidal ideations, plan, or intent. Protective factors is child. Looking forward to spending time with child this weekend. Progress Toward Goals/Plan:: Progress noted since D/C from inpt psych. Continues to ruminate on re-admission as a failure however with direction from therapist able to reframe. Will continue in IOP. Encouraged to contact this therapist, her outpatient therapist, crisis, or support if thoughts become overwhelming. Encouraged use of coping skills on consistent basis over the weekend. Next session will complete safety plan. Time Stopped:: 12:45
--- NOTE | 2019-01-01 15:51 | HP.PCM_ITS ---
History and Physical Date of Admission: 12/31/18 Chief Complaint: The patient is a 28-year old female being readmitted to the intensive outpatient mental health treatment program at [facility]. She has a long history of depression, anxiety and borderline personality disorder. She was admitted to the [facility] for suicidal thoughts and was actively in our program prior to her hospital admission. History of Present Illness: The patient was actively in our intensive outpatient program at the time of her hospital admission. Said that her last group of the week was on and she was admitted to the hospital on . Said that she was doing fairly well out in our program earlier in the day. However she then became stressed out. She had an interaction with a friend in which her friend did not do what she had asked. She felt rejected. She admitted that she over reacted. Is also looking forward to being alone for 4 days and she has a hard time being alone. Son was out of the home. So felt stressed out at the thought of having to get a job when she completed our program. He felt totally stressed out and could think of no way to cope with her stress. She started to feel suicidal and had herself admitted to the hospital. She was discharged on 12/30 and is now returning to our program. He is currently doing fairly well. She has a long history of problems with depression, mood swings and anxiety. Please see my prior admission summary for details. Past Psychiatric History: See prior admission summary Current Psychiatric Medications: Topamax 25mg daily Medical History: Weight. She smokes 1 pack of cigarettes per day. Allergies: Adverse reactions to Depakote and Abilify. Family Psychiatric History: Prior admission summary Personal/Social History: See prior admission summary Review of Systems: Psychiatry: History of depression, anxiety and mood swings as per HPI. She is not currently suicidal. There is no active psychosis. She is cognitively intact. Constitutional: She is overweight and her weight has been steady. Her energy level has improved. Neurological: She has a history of migraine headaches. All other systems reviewed and are negative. Examination: The patient presents as a pleasant woman of overweight build who is neatly dressed and groomed. She demonstrates good social skills. Her speech is fluent and spontaneous. Her language is intact. Her judgment and insight and be very poor. Affect is cordial and appropriate. No hallucinations or delusions and she is not actively suicidal. Diagnoses: [] [place] I: [] Persistent depressive disorder; DANA, chronic adjustment disorder with anxiety [place] II: Borderline personality disorder [place] III: [] Overweight, nicotine dependence Plan: She does not wish to make any changes in her psychiatric medicines. I am continuing Topamax 25 mg daily. Will participate in the intensive outpatient groups. I will see her again for follow-up.
--- NOTE | 2019-01-01 15:52 | BH.MDN_ITS ---
Multi-Disciplinary Note - Note 30-min Individual Time Started:: 12:20 Date: 12/22/18 Purpose of session/treatment goals addressed:: Assessed current symptoms. Reviewed progress in IOP. Began safety/crisis plan. Eye Contact:: Fair Motor Activity:: Restless Appearance:: Casual Speech:: Appropriate Mood:: Anxious, Depressed Affect:: Congruent Thoughts:: Linear, Logical, No evidence of hallucinations/delusions noted Staff Interventions:: Utilized PR to elicit change behaviors. Introduced and began to work on safety plan/ Client Response:: Pt reports feeling tired today. Was active in group and reports smiling a great deal today. Continues to reports depression however states I'm looking forward to this weekend. Frustrated as she had to talk with psychiatrist and nurse today about her recent re-admission which makes her feel like a failure. Able to reframe with direction. We discussed the purpose of the safety/crisis plan and how to utilize it. She was given a plan to begin to work on. Will review this on Friday. Reports depression as 4 on a scale of 1- 10 with 10 being the worst. Denies any suicidal thoughts, plan, or intent. Denies any wish or desire to be . Smiles at times stating I'm good with that. Risks/Concerns:: No immediate risks or concerns. Denies any suicidal ideations, plan, or intent. Protective factors is child. Looking forward to spending time with child this weekend. Progress Toward Goals/Plan:: Progress noted since D/C from inpt psych. Continues to ruminate on re-admission as a failure however with direction from therapist able to reframe. Will continue in IOP. Encouraged to contact this therapist, her outpatient therapist, crisis, or support if thoughts become overwhelming. Encouraged use of coping skills on consistent basis over the weekend. Next session will complete safety plan. Time Stopped:: 12:45
--- NOTE | 2019-01-01 15:52 | BH.DR.ITP ---
Initial Treatment Plan - Patient Information Visit Information: ADMISSION DATE: 12/31/18 EXPECTED LOS: 4-6 weeks Diagnoses:: persistent depressive disorder; DANA; chronic adjustment disorder with anxiety; borderline personality disorder - Problems/Symptoms Problem #1:: depression Symptom:: low mood, anhedonia; low energy Problem #2:: anxiety Symptom:: worry, problems coping with stress; feeling anxious Problem #3:: borderline personality disorder Symptom:: abandonment fears; impulsivety; mood swings
== END 2019-01-03 23:59 ==
LOC: BHIOP 08:50
PROVIDERS: Family Provider Family Medicine; PCP Family Medicine; Referring Provider Psychiatry & Neurology Psychiatry; Visit Provider Psychiatry & Neurology Psychiatry
DX: F34.1 Dysthymic disorder (principal); F41.1 Generalized anxiety disorder; F43.22 Adjustment disorder with anxiety; F60.3 Borderline personality disorder; F17.210 Nicotine dependence, cigarettes, uncomplicated; Z79.899 Other long term (current) drug therapy; E66.3 Overweight
CPT/HCPCS: H0035; H2012; H2020; T1002; 90832; 90834

== ENCOUNTER 2019-01-04 09:00 | Outpatient (RCR) | payer MEDICAID, SELFPAY ==
--- NOTE | 2019-01-04 09:05 | BH.SGPN.GN ---
Behaviors/Verbalizations/Mental Status: [] Eye contact is good. Motor activity is appropriate. Appearance is casual. Speech is Appropriate. Mood is depressed. Affect is flat. Thoughts are linear and logical. No evidence of psychosis. Reviewed daily check in sheet and no reports of suicidal ideations or intent Client Response/Progress/Benefit: [] Pt was an active participant in group discussions. Emotion for today is hopeful. Shared with the group that her weekend went well. Feeling more hopeful this weekend and today. Discussed recent changes in custody with her child. She is frustrated however was assertive in her communication with ex regarding her needs. Continues to feels like a failure and regrets hospitalization feeling that it set her back. Ruminates that she could have managed w/o going. Group was supportive and provided encouragement which she benefited from. Progress noted per pt report. Will continue in IOP to maintain safety, improve functioning, decreased depressive symptoms. Narrative Note: []
--- NOTE | 2019-01-04 10:22 | BH.SGPN.GN ---
Behaviors/Verbalizations/Mental Status: []Client alert and oriented, casually dressed and groomed. Eye contact good. Motor activity appropriate. Speech within normal limits. Affect congruent, mood dysthymic. Thoughts linear, logical, no signs of hallucinations or delusions. Client Response/Progress/Benefit: []Client responded well to session, engaged in discussion and activity. Client discussed the quote and shared ?emotions aren?t bad, but there?s good and bad ways to deal with them.? Client stated she has self-sabotaged in the past because she feared success. Client shared being able to cope with emotions in healthy ways causes her to feel proud and prevent setbacks. Client stated, ?extreme stressors? and negative thinking can impact one?s ability to communicate in a stressful situation. Client reported the benefit of being able to communicate during stressful situations is getting the support one needs. Client participated in the activity and did well to manage her emotions. Client stated she normally does not trust people which made the activity anxiety producing. Client reported belief she managed her emotions well by breathing and taking it slow. Client appeared to benefit from increasing awareness of how emotions can impact communication and the benefits of being able to regulate emotions. Progress noted as client used in the moment coping skills to manage her anxiety. Client to continue IOP to further combat negative thinking that reinforcing self-sabotage.
--- NOTE | 2019-01-04 11:20 | BH.SGPN.GN ---
Behaviors/Verbalizations/Mental Status: [] Eye contact is good. Motor activity is appropriate. Appearance is casual. Speech is Appropriate. Mood is depressed. Affect is flat. Thoughts are linear and logical. No evidence of psychosis. Client Response/Progress/Benefit: [] Pt was an active participant in group discussion and activity. Attentive during psychoeducation on 4 zones of regulation. Pt able to identify how she feels in each zone as well as how she acts in each zone. Also able to identify strategies to incorporate to support herself in each zone which included; movement, playing with son, uplifting music, completing small goals, doing something enjoyable, maintaining routine, self-care, awareness, grounding, breathing, journaling, painting, talking, reaching out to support, and rest. Benefited from group from increased education on zones of regulation or stages of alertness for emotions and healthy coping skills to use for each zone. Narrative Note: []
--- NOTE | 2019-01-04 14:22 | BH.MTP_ITS ---
Master Treatment Plan - Patient Information Program Physician:: Dr. Elijah De Guzman Primary Therapist:: Rico Martinez - Psychiatric Diagnoses Psychiatric Diagnoses:: Persistent depressive disorder. DANA. Chronic adjustment disorder with anxiety. Borderline PD Diagnosis Code(s):: f34.1 - Estimated LOS Estimated LOS (in weeks):: 6 Problem/Goal #1 - Problem/Goal #1 Stated Goal:: Client will decrease depressive symptoms, isolation, suicidal ideations, anhedonia, poor self-esteem, and negative thoughts due to Persistent Depressive Disorder through Intensive Outpatient Program. Description of Barriers: Hopelessness, several conflicted relationships, unemployed, financial stressors, Functional Impact: Daily functioning is impacted by depression. Recent hospitalization due to depression and suicidal ideations. Struggles with managing depression on a daily basis. - Objectives Objective #1 Stated Objective: Client will work with therapist to develop a ?crisis plan? which includes emergency telephone numbers, 3-4 coping strategies for SI, lists of supports, positive aspects of his/her life, and motivations Interventions: Pt will be given crisis plan worksheet and [facility] Discharge Criteria: Completed crisis manangment plan. Target Date: 01/31/19 Review Date: 01/31/19 Objective #2 Stated Objective: Client will increase social activity to at least one additional activity weekly to increase mood. Interventions: Therapist will assist client in identifying social activities of interest for client to become involved in. Discharge Criteria: Client will have achieved this objective when identified a social activity of interest and has attended the activity. Target Date: 01/31/19 Review Date: 01/31/19 Problem/Goal #2 - Problem/Goal #2 Stated Goal:: Client will reduce overall frequency, intensity, and duration of the anxiety so that daily functioning is not impaired Description of Barriers: Hoplessness, doesn't beleive that she has control over her anxiety, when overwhelmed doesn't use coping skills. Functional Impact: Has led to recent job losses due to anxiety. Isolative and avoidant behaviors on daily basis - Objectives Objective #1 Stated Objective: Will develop a concrete step by step plan to address anxiety which includes coping skills, strategies for thought reframing, calming skills, and affirmations. Interventions: Through individual and group counseling will assist pt in developing skills to utilze on a consistent basis to encorporate into the plan. Discharge Criteria: Complete anxiety managment plan. Target Date: 01/31/19 Review Date: 01/31/19 Problem/Goal #3 - Problem/Goal #3 Stated Goal:: Increase awareness of Boderline Personality Disorder and its impact on impulsiveness, mood swings, and relationship conflicts. Description of Barriers: Chronic hx of conflicted relationships, poor emotional regulation. Functional Impact: Impulsiveness and poor emotional regulation impacts daily functioning. - Objectives Objective #1 Stated Objective: Pt will be able to identify borderline personality traits and thier impact on daily functioning, impulsivity, and relationships Interventions: Will provide pt with educational handouts and further discuss role of BPD in managing emotions. Discharge Criteria: Pt will be able to identify all criteria for BPD and how BPD relates to relatinships, mood, and impulsivity. Target Date: 01/31/19 Review Date: 01/31/19
--- NOTE | 2019-01-04 14:22 | BH.MDN ---
Multi-Disciplinary Note - Note 45-min Individual Time Started:: 12:20 Date: 01/04/19 Purpose of session/treatment goals addressed:: Developed treatment plan. Finished up crisis/safety plan. Reviewed current symptoms and progress in IOP Eye Contact:: Good Motor Activity:: Appropriate Appearance:: Casual Speech:: Appropriate Mood:: Depressed Affect:: Full Thoughts:: Linear, Logical, No evidence of hallucinations/delusions noted Staff Interventions:: Utilized WA techniques to elicit change behaviors. Processed crisis/safety plan with pt. Discussed treatment plan goals for this admission. Client Response:: Pt reports continued depression however reports that she is hopeful and looking forward to spending more time with her son this evening. She reviewed safety plan which she completed. Identified warning signs, negative thoughts which continue crisis, internal coping strategies, thoughts to combat negative thoughts, reasons for living, suggestions for support, and list of support to talk with when in crisis including therapists and crisis. She talked about recent crisis and identified alternative coping skills that she did not use however could in the future. Insight that when in crisis it is challenging to think logically and is more on her emotional brain. Identified support and talking as ways to ease crisis. Struggling with friendship and setting up boundaries. Admits friendship is toxic however benefical to her. Risks/Concerns:: No risks or concerns noted. Denies suicidal ideations, plan, or intent. Protective factors reported. Hopeful. Progress Toward Goals/Plan:: Progress noted since last week. More hopeful. Not ruminating on psych admission. Completed safety plan. Will continue in IOP to maintain safety, prevent decompensation, and improve daily functioning. Time Stopped:: 13:00
--- NOTE | 2019-01-04 14:24 | BH.PSA_ITS ---
Source of Information - Presenting Problems/Circumstances Problems, Referral Source, Mental Status, Client: Please refer to psychosocial during previous admission on 11/19/18. No significant changes expect she was admitted to [facility] for [facility]iatry from 12/24/18-12/30/18 for suicidal ideations with thoughts about method.
--- NOTE | 2019-01-04 14:33 | BH.MDN_ITS ---
Multi-Disciplinary Note - Note 45-min Individual Time Started:: 12:20 Date: 01/04/19 Purpose of session/treatment goals addressed:: Developed treatment plan. Finished up crisis/safety plan. Reviewed current symptoms and progress in IOP Eye Contact:: Good Motor Activity:: Appropriate Appearance:: Casual Speech:: Appropriate Mood:: Depressed Affect:: Full Thoughts:: Linear, Logical, No evidence of hallucinations/delusions noted Staff Interventions:: Utilized [place] techniques to elicit change behaviors. Processed crisis/safety plan with pt. Discussed treatment plan goals for this admission. Client Response:: Pt reports continued depression however reports that she is hopeful and looking forward to spending more time with her son this evening. She reviewed safety plan which she completed. Identified warning signs, negative t houghts which continue crisis, internal coping strategies, thoughts to combat negative thoughts, reasons for living, suggestions for support, and list of support to talk with when in crisis including therapists and crisis. She talked about recent crisis and identified alternative coping skills that she did not use however could in the future. Insight that when in crisis it is challenging to think logically and is more on her emotional brain. Identified support and talking as ways to ease crisis. Struggling with friendship and setting up boundaries. Admits friendship is toxic however benefical to her. Risks/Concerns:: No risks or concerns noted. Denies suicidal ideations, plan, or intent. Protective factors reported. Hopeful. Progress Toward Goals/Plan:: Progress noted since last week. More hopeful. Not ruminating on psych admission. Completed safety plan. Will continue in IOP to maintain safety, prevent decompensation, and improve daily functioning. Time Stopped:: 13:00
--- NOTE | 2019-01-05 09:04 | BH.SGPN.GN ---
Behaviors/Verbalizations/Mental Status: [Eye contact is good. Motor activity is appropriate. Appearance is disheveled. Speech is Appropriate. Mood is anxious. dysthymic. Affect is congruent. Thoughts are linear and logical. No evidence of psychosis. Reviewed daily check in sheet with no reports of suicidal ideations or intent. ] Client Response/Progress/Benefit: [Pt attentive and engaged AEB providing some input during discussion and maintaining eye contact throughout. Emotion for today is nervous which she reports is due to starting a new job tonight. Pt reflected upon positives of having a job to start part-time in order to begin to adjust to return to work environment and build up her confidence and ability to manage mental health sx while in the workplace. Additional positive as making efforts to reach out to more supports and establishing plans with a healthy support for later in the week. Pt benefitted from identifying areas of progress and challenging self to use her down time in positive ways rather than falling back on old isolative behaviors. Pit reflected that current stressor is adjusting to finding things to do during her increased amounts of alone time as a result of change in visitation with her son. Progress noted in her ability to use mindfulness skills and grounding to prevent increased anxiety. Pt recommended continued IOP tx to further improve use of thought challenging and distress tolerance skills, maintain safety, as well as to decrease sx of depression and anxiety.] Narrative Note: []
--- NOTE | 2019-01-05 10:20 | BH.SGPN.GN ---
Behaviors/Verbalizations/Mental Status: [] Eye contact is good. Motor activity is appropriate. Appearance is casual. Speech is Appropriate. Mood is anxious. Affect is congruent. Thoughts are linear and logical. No evidence of psychosis. Client Response/Progress/Benefit: [] Pt was an active participant in group discussion and activity. Worked together with the group to define a crisis and discuss examples of crisis situations. Group identified warning signs that one is in crisis which include; intense anxiety, paranoia, excessive restlessness, distorted thinking, crying, labile, anger outbursts, self-harm, isolation, and pacing. Pt completed her own personal warning signs worksheet. Identified unhealthy ways to manage a crisis which included; over-eating, running away, anger, alcohol or substances, isolation, sleeping to escape, and self-harm. Benefited from group by increasing awareness of crisis and personal warning signs. Narrative Note: []
--- NOTE | 2019-01-05 11:20 | BH.SGPN.GN ---
Behaviors/Verbalizations/Mental Status: []Pt eye contact good, casually dressed, motor activity restless, speech normal rate and tone, mood anxious, congruent affect, thoughts linear and logical, no evidence of delusions or hallucinations. Client Response/Progress/Benefit: []Client responded well to session as evidenced by client contributing to discussion and listening attentively to others. Client identified her warning signs for crisis and gained further awareness of her earliest warning signs. Client?s top three early warning signs were being feeling like she failed/rejected, lack of control, and being alone/isolated. Client recognized that awareness of these warning signs can prevent further crisis and help client utilize healthy coping skills to break the cycle. Client created a crisis action plan to help client better manage warning signs for crisis. Client?s plan included coping skills such as worry clock, talking to someone, positive affirmations, and focusing on something small she can control. Client selected three items that will help her remember these crisis interventions including the word hello, heart, and a small clothespin. Client appeared to benefit from creating a crisis action plan and increasing her self-awareness. Client to continue IOP to decrease anxiety, increase consistent use of healthy coping and thought challenge and prevent decompensation. Narrative Note: []
--- NOTE | 2019-01-06 15:20 | BH.COMM ---
Communication Note - Communication with Client Communication Note: Spoke with patient. Reports that her insurance was cancelled as she did not fill out a form for Medicaid. States that she completed the form and submitted it to Medicaid today however they report could take up to 30 days to process. Currently self-pay. We discussed options. Cancelled IOP for the remainder of the week. Will discuss further next week. May have to discharge. Pt was in good spirits. Denies any suicidal ideations, plan, or intent. Frustrated however is active and not avoiding responsibilities.
--- NOTE | 2019-01-12 09:10 | BH.SGPN.GN ---
Behaviors/Verbalizations/Mental Status: [] Eye contact is good. Motor activity is appropriate. Appearance is casual. Speech is Appropriate. Mood is anxious. Affect is congruent. Thoughts are linear and logical. No evidence of psychosis. Reviewed daily check in sheet and no reports of suicidal ideations or intent. Client Response/Progress/Benefit: [] Pt was an active participant in group discussions. Emotion for today is anxious and energetic. Shared that she had been absent from group due to an insurance issue. proud of herself for being assertive with the issues and getting it resolved in timely manner, however admits that being avoidant and ignoring the issue is what led to problem. Kept active and social this weekend with friends. Admits to increased anxiety and financial concerns which has led to some cognitive distortions, however identified strategies that she has been utilizing such as mindfulness, thought-stopping, and calming skills which had been helpful. States that she is checking in with herself throughout the day. Some upcoming stressors as well. Progress noted per pt report. Benefited from group support, feedback, and praise. Will continue in IOP to maintain safety, prevent decompensation, and decrease anxiety. Narrative Note: []
--- NOTE | 2019-01-12 10:15 | BH.SGPN.GN ---
Behaviors/Verbalizations/Mental Status: []Pt eye contact good, casually dressed, motor activity appropriate, speech normal rate and soft tone, mood anxious, full affect, thoughts linear and intact, no evidence of delusions or hallucinations. Client Response/Progress/Benefit: []Client listened attentively to peers and contributed thoughts and ideas to discussion at times. Client could relate with peers that change is not something she likes to do because doesn't like to be out of control. Client explained if she stays in her comfort zone by not making changes then she knows what to expect and feels more in control. Client recognizes change doesn't have to be bad, what matters is how she responds to change. Client could connect with a peer's comments about easier staying in comfort zone despite not being happy with where you are at in life. Client identified her child to be a positive change for her. Client connected with the various emotions discussed that can impact change process. Client seemed to benefit from increased awareness of barriers that can get in the way of making a personal change and benefits of making change. Client progressing with being able to identify importance of making change and being able to reflect on how there has been positive in her life from some changes she has made. Narrative Note: []
--- NOTE | 2019-01-12 11:18 | BH.SGPN.GN ---
Behaviors/Verbalizations/Mental Status: []Client alert and oriented, casually dressed and groomed. Eye contact good. Motor activity appropriate. Speech within normal limits. Affect constricted, mood euthymic. Thoughts linear, logical, no signs of hallucinations or delusions. Client Response/Progress/Benefit: []Client responded well to session, positive contributions. Client participated in the activity and helped the group process challenges associated with making change. Client shared the activity reminded her that change ?can be frustrating because it doesn?t always work out like you planned.? However, the group stated it is possible to adapt to change. Client reported learning from mistakes, so she did not self-sabotage helped her adapt to change. Client appeared to connect with the stages of change and self-identified as being between the preparation and action stages. Client shared she has been at the maintenance stage before and had a setback. Client stated, ?I think I needed to experience the setback because I learned.? Client identified a change she would like to make to improve her mental health. Client?s goal is to challenge self-doubt by writing two positive affirmations a day. Client appeared to benefit from reflecting on the lessons she has learned from change and from identifying a change that would improve her mental health. Progress noted as client reports improved mood stability, but she continues to struggle with negative thinking. Client to continue IOP to promote gains and reduce negative self-talk.
--- NOTE | 2019-01-12 15:25 | BH.MDN ---
Multi-Disciplinary Note - Note 45-min Individual Time Started:: 12:15 Date: 01/12/19 Purpose of session/treatment goals addressed:: Assess current symptoms. Review progress in IOP. Developed anxiety managment strategies to implement for following through with work. Eye Contact:: Good Motor Activity:: Appropriate Appearance:: Casual Speech:: Appropriate Mood:: Depressed Affect:: Flat Thoughts:: Linear, Logical, No evidence of hallucinations/delusions noted Staff Interventions:: Worked with pt to develop some strategies to utilize when anxiety about going to work. [place] techniues to identify motivation. Client Response:: Pt reports increased anxiety this week. Reports that she was a no show for work on Friday. Unable to verbalize any reason expect to say that she was too anxious and had overwhelming panic. No trigger. Actually liked the job and felt she could do it. Frustrated with herself and tearful. Discussed how her depressive episode and hospitlization in 09/2018 caused her to give up on herself and ultimately give up custody of her child. Reports this is when she began to have difficulty going to work and since then has no showed several employers. No specific reason again however appears to be related to lack of motivation nobody is holding me accountable and I don't have a kid to support. States I have no purpose or goal in life. Towards the end of the session more optimistic and was able to identify motivators to job and possible benefits for herself in keeping a job such as money, possible friendships, socialization, goals, etc... Able to develop an affirmation or script to tell herself prior to work to decrease panic. Risks/Concerns:: No risks or concerns noted. Denies suicidal ideations, plan, or intent. Protective factors. Future-oriented as she has another job interview today. Progress Toward Goals/Plan:: In certain areas pt has made progress as she is communicating apprpriately with supports and has set boundaries in certain relationships. Increased skills to utilize however is inconsistent in applying these skills. Often reports panic, depression, and anxiety with no real reason or cause which makes her feel hopeless and not in control of her emotions. Denies suicidal ideations, plan, or intent since re-admission to [facility]. Working on strategies to utilize in distress such as safety plan and anxiety management plan. Will continue in IOP. Time Stopped:: 13:00
--- NOTE | 2019-01-12 15:54 | BH.MDN_ITS ---
Multi-Disciplinary Note - Note 45-min Individual Time Started:: 12:15 Date: 01/12/19 Purpose of session/treatment goals addressed:: Assess current symptoms. Review progress in IOP. Developed anxiety managment strategies to implement for following through with work. Eye Contact:: Good Motor Activity:: Appropriate Appearance:: Casual Speech:: Appropriate Mood:: Depressed Affect:: Flat Thoughts:: Linear, Logical, No evidence of hallucinations/delusions noted Staff Interventions:: Worked with pt to develop some strategies to utilize when anxiety about going to work. [place] techniues to identify motivation. Client Response:: Pt reports increased anxiety this week. Reports that she was a no show for work on Friday. Unable to verbalize any reason expect to say that she was too anxious and had overwhelming panic. No trigger. Actually liked the job and felt she could do it. Frustrated with herself and tearful. Discussed how her depressive episode and hospitlization in 09/2018 caused her to give up on herself and ultimately give up custody of her child. Reports this is when she began to have difficulty going to work and since then has no showed several employers. No specific reason again however appears to be related to lack of motivation nobody is holding me accountable and I don't have a kid to support. States I have no purpose or goal in life. Towards the end of the session more optimistic and was able to identify motivators to job and possible benefits for herself in keeping a job such as money, possible friendships, socialization, goals, etc... Able to develop an affirmation or script to tell herself prior to work to decrease panic. Risks/Concerns:: No risks or concerns noted. Denies suicidal ideations, plan, or intent. Protective factors. Future-oriented as she has another job interview today. Progress Toward Goals/Plan:: In certain areas pt has made progress as she is communicating apprpriately with supports and has set boundaries in certain rela tionships. Increased skills to utilize however is inconsistent in applying these skills. Often reports panic, depression, and anxiety with no real reason or cause which makes her feel hopeless and not in control of her emotions. Denies suicidal ideations, plan, or intent since re-admission to [facility]. Working on strategies to utilize in distress such as safety plan and anxiety management plan. Will continue in IOP. Time Stopped:: 13:00
--- NOTE | 2019-01-14 09:00 | BH.COMM ---
Communication Note - Communication with Client Communication Note: Pt left message this AM that she would not be in for group today. Stated she would call later today or tomorrow to discuss schedule for next week. Did not sound in distress not did she verbalize any concerns. No safety concerns noted during last individual session.
--- NOTE | 2019-01-15 16:08 | BH.COMM ---
Communication Note - Communication with Client Communication Note: Pt called in today and spoke with this therapist. Reports that she got a full-time job and actually started this week. Reports that she is in good spirits and is enjoying her job. We discussed this program and she is requesting to be discharged. She feels that she is emotionally stable and that fiances are a big stressor for her. 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 Recommended that she continue with [facility] due to recent hospitaliztion however understood her situation. She is going to continue with her outpatient therapist and psychiatrist. Will discharge her from [facility].
--- NOTE | 2019-01-15 16:12 | BH.DS_ITS ---
Discharge Summary - Demographics Date of Admission:: 12/31/18 Discharge Date: 01/15/19 Presenting Problems at Admission:: Pt is a 28 year old female. Hx of Bipolar and MDD. Most recent hospitlization on 12/24/18 to [facility] for psychiatry. She was attending [facility] at the time of this admission and was dicharged back to [facility] on 12/30/18. Three previous psychiatric admissions in 2019, 2016 and 2015 all involving relationships changes. Denies active suicidal ideations since discharge for [facility]. She reports trigger to exacerbation of SI was recent conflict with friend and being overwhelmed with upcoming changes. Hx of self-injurious behaviors. Hx of substance abuse however currently sober. Endorses decreased ability to function, loss of 2 recent jobs due to MH symptoms, difficulty completing daily responsibilities (bills, cleaning), panic attacks, passive thoughts of , mood swings, and overall difficulty managing emotions. Others symptoms reported are isolation, anhedonia, ruminations, lack of purpose, decreased energy, decreased motivation, and conflicts in relationships. Denies any psychosis or HI. Endorses mild paranoia that others are spying on her Discharge Diagnoses:: Persistent depressive disorder. DANA. Chronic adjustment disorder with anxiety. Borderline PD Reason for Discharge:: Pt requested discharge due to finding a full-time job and financial stressors. - Treatment Progress During Treatment & Response: Since returning to [facility] after hospitalization pt has made limited progress. She missed several days due to insurance issues and called off another day due to job interview. Completed goal of developing safety and crisis management plan. Reported decrease in severity, duration, and frequency of depression, anxiety, and suicidal ideations since entering [facility]. She continued to struggle with consistent stablization often having 1 or 2 good days followed by isolation, derpessive, and passive thoughts of . Insight and improve in recognizing cognitive distortions and negative thinking. At times can utilize coping skills, thought reframing skills, and crisis managment however again has not been consistent. Significant difficulty maintaining a job due to anxiety often simply no showing shifts due to panic. Issues Still to be Addressed:: Depression, mood management, anxiety, panic attacks, and crisis management. Discharge Recommendations/Instructions:: Encouraged to contiue with [facility] level of care however pt refused. Recommended to follow-up with her outpatient therapist at [facility] and her [facility]. Discharge Handout: Complete Discharge Handout with client on aftercare options and continuity of care.
--- NOTE | 2019-01-15 16:12 | BH.COMM_ITS ---
Communication Note - Communication with Client Communication Note: Pt called in today and spoke with this therapist. Reports that she got a full-time job and actually started this week. Reports that she is in good spirits and is enjoying her job. We discussed this program and she is requesting to be discharged. She feels that she is emotionally stable and that fiances are a big stressor for her. 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 Recommended that she continue with [facility] due to recent hospitaliztion however unde rstood her situation. She is going to continue with her outpatient therapist and psychiatrist. Will discharge her from [facility].
== END 2019-01-15 16:12 | disposition home or self-care (01) ==
LOC: BHIOP 09:00
PROVIDERS: Family Provider Family Medicine; PCP Family Medicine; Referring Provider Psychiatry & Neurology Psychiatry; Visit Provider Psychiatry & Neurology Psychiatry
DX: F34.1 Dysthymic disorder (principal); F41.1 Generalized anxiety disorder; F43.22 Adjustment disorder with anxiety; F60.3 Borderline personality disorder
CPT/HCPCS: H0035; H2020; 90834

== ENCOUNTER 2019-02-02 20:31 | Emergency (ER) | payer MEDICAID, SELFPAY ==
[2019-02-02 20:32] VITALS: BP 138/89; PULSE 103; RESP 19; TEMP 36.9; O2SAT 99; BMI 28.3
--- NOTE | 2019-02-02 21:00 | ED.RN ---
pt states she did take prozac over the weekend to help with anxiety but stopped. it was prescribed to her a while ago and she still had some medication leftover.
--- NOTE | 2019-02-02 21:38 | EKG12_ITS ---
Test Reason : CP Blood Pressure : / mmHG Vent. Rate : 093 BPM Atrial Rate : 093 BPM P-R Int : 150 ms QRS Dur : 092 ms QT Int : 346 ms P-R-T Axes : 079 087 066 degrees QTc Int : 430 ms Normal sinus rhythm Normal ECG Confirmed by THADDEUS WHITE ([id number]), advertising editor REJI SANTA ([id number] on 02/08/2019 2:19:17 PM Referred By: Confirmed By:BILLY WHITE
--- NOTE | 2019-02-02 21:42 | RAD_ITS ---
STUDY: X-RAY CHEST REASON FOR EXAM: Female, 28 years old. Chest pain. TECHNIQUE: Single AP portable view of the chest. COMPARISON: None. FINDINGS: The lungs are clear and expanded. There is no demonstrated pleural abnormality. Normal size heart. Normal mediastinum and marty. Normal visualized pulmonary arteries. Normal visualized aortic arch and descending thoracic aorta. Normal visualized thoracic spine. Normal visualized ribs, clavicles, and shoulders. There is no demonstrated abnormality of the visualized soft tissue structures of the upper abdomen. RAD/Chest 1 View (Portable) IMPRESSION: No acute cardiopulmonary disease. Electronically Signed: Patel Carroll DO at 21:54 EDT Tel [phone], Service support ,
[2019-02-02 21:53] VITALS: BP 100/83; PULSE 89; RESP 18; O2SAT 98
[2019-02-02] MEDS: Aspirin 81 MG TAB.CHEW 324 MG PO (21:53)
[2019-02-02 22:13] LABS: Basophil# 0.07 X10^3/uL; Basophil% 0.7 % (0-1); Eosinophil# 0.56 X10^3/uL; Eosinophils% 5.9 % (0-5); Hematocrit 40.4 % (37-47); Hemoglobin 13.7 g/dl (12.0-15.0); Lymphocyte % 42.4 % (19-41); Mean Corp Hgb Conc 33.9 g/gl (32-36); Mean Corpuscular Hgb 31.6 pg (27.0-32.0); Mean Corpuscular Volume 93.3 fL (81-99); Mean Platelet Vol. 8.7 fl (6.2-12.0); Monocyte# 0.76 X10^3/uL; Monocyte% 8.1 % (0-10); Neutrophil # 4.03 X10^3/uL (2.7-7.7); Neutrophil % 42.7 % (47-70); POSITIVE COUNT NO; POSITIVE DIFFERENTIAL NO; POSITIVE MORPHOLOGY NO; Platelet Count 263 K/mm3 (150-450); RBC Distribution Width CV 12.6 % (11.6-14.6); RBC Distribution Width SD 43.4 fl (35.1-43.9); Red Blood Count 4.33 M/mm3 (4.2-5.4); White Blood Count 9.4 K/mm3 (4.4-11.0)
[2019-02-02 22:15] LABS: Internal QC Validated? YES +Cl - CLEAR BKGD; Pregnancy, Serum, hCG Quali. NEGATIVE Negative
[2019-02-02 22:24] LABS: Anion Gap 4 (5-15); BUN 8 mg/dL (7-18); BUN/Creat Ratio 10.4 RATIO (10-20); Calcium,Total 8.2 mg/dL (8.5-10.1); Chloride 111 mmol/L (98-107); Creatinine, Serum 0.77 mg/dL (0.55-1.02); D-Dimer Quantitative (DVT/PE) < 0.27 FEU/ug/m (0.27-0.49); EST Glomerular Filtration Rate 96 mL/min (>60); Est Glom Filt Rate - Afr Amer 116 mL/min (>60); Estimated Creatinine Clearance 98.75 ml/min; Glucose 105 mg/dL (74-106); Sodium Level 140 mmol/L (136-145)
[2019-02-03 00:05] VITALS: BP 111/68; PULSE 83; RESP 15; O2SAT 98
--- NOTE | 2019-02-03 00:35 | ED.DEP ---
ED Disposition - Plan for ED Patient: Instructions: ED Chest Pain Atypical Unkn Cause Prescriptions: Naproxen [Naprosyn] 500 mg PO BID PRN #20 tablet Referrals: Tangela Brito DO [Primary Care Provider] -
[2019-02-03 00:40] VITALS: BP 110/69; PULSE 82; RESP 16; O2SAT 98
--- NOTE | 2019-02-03 00:55 | ED.VISSUMM ---
- ER Visit Summary Date of Service: 02/03/19 Chief Complaint: Chest pain History of Present Illness: The patient is a 28 F presenting with chest pain and left arm pain. She states this started 6 hours ago while she was lifting something. Pain is in the left side of her chest. She denies shortness of breath. Pain in her left arm is worsened with movement. She denies PE/DVT risk factors. She is a smoker. Physical Examination: Vitals are stable. Patient is afebrile. Alert no acute distress. HEENT exam is unremarkable. Neck is supple. Left paraspinal cervical muscle tenderness, no midline tenderness Lungs are clear and equal bilaterally. Heart is regular rate and rhythm. Abdomen is soft nontender nondistended. Extremities left shoulder tenderness to palpation with active full range of motion, neurovascularly intact distally Skin is warm and dry. No focal neurologic deficit. Normal strength and sensation bilaterally Remainder of exam is unremarkable. Emergency Department Course and Treatment: EKG is sinus rhythm rate of 93. Chest x-ray shows no acute process. CBC, chemistries unremarkable. Troponin is negative. D-dimer negative. hCG negative. On reevaluation, patient is resting comfortably. She is given prescription for Naprosyn. Advised to follow-up with her primary care physician. Advised return to ED if worsening complaints. Disposition: Discharge home Impression: Atypical chest pain This note was generated with [employer] dictation software. It may contain incorrect words, spelling, and punctuation that were not noted in review of the chart prior to signing ED Disposition - Plan for ED Patient: Disposition: Home or Assisted Living Instructions: ED Chest Pain Atypical Unkn Cause Prescriptions: Naproxen [Naprosyn] 500 mg PO BID PRN #20 tablet Referrals: Tangela Brito DO [Primary Care Provider] -
--- NOTE | 2019-02-03 00:58 | ED.DCSUM_ITS ---
- ER Visit Summary Date of Service: 02/03/19 Chief Complaint: Chest pain History of Present Illness: The patient is a 28 F presenting with chest pain and left arm pain. She states this started 6 hours ago while she was lifting something. Pain is in the left side of her chest. She denies shortness of venice th. Pain in her left arm is worsened with movement. She denies PE/DVT risk factors. She is a smoker. Physical Examination: Vitals are stable. Patient is afebrile. Alert no acute distress. HEENT exam is unremarkable. Neck is supple. Left paraspinal cervical muscle tenderness, no midline tenderness Lungs are clear and equal bilaterally. Heart is regular rate and rhythm. Abdomen is soft nontender nondistended. Extremities left shoulder tenderness to palpation with active full range of motion, neurovascularly intact distally Skin is warm and dry. No focal neurologic deficit. Normal strength and sensation bilaterally Remainder of exam is unremarkable. Emergency Department Course and Treatment: EKG is sinus rhythm rate of 93. Chest x-ray shows no acute process. CBC, chemistries unremarkable. Troponin is negative. D-dimer negative. hCG negative. On reevaluation, patient is resting comfortably. She is given prescription for Naprosyn. Advised to follow-up with her primary care physician. Advised return to ED if worsening complaints. Disposition: Discharge home Impression: Atypical chest pain This note was generated with [employer] dictation software. It may contain incorrect words, spelling, and punctuation that were not noted in review of the chart prior to signing ED Disposition - Plan for ED Patient: Disposition: Home or Assisted Living Instructions: ED Chest Pain Atypical Unkn Cause Prescriptions: Naproxen [Naprosyn] 500 mg PO BID PRN #20 tablet Referrals: Tangela Brito DO [Primary Care Provider] -
== END 2019-02-03 00:45 | disposition home or self-care (01) ==
PROVIDERS: Emergency Provider Emergency Medicine; Family Provider Family Medicine; PCP Family Medicine
DX: R07.89 Other chest pain (principal); F17.200 Nicotine dependence, unspecified, uncomplicated; G43.909 Migraine, unspecified, not intractable, without status migrainosus; Z79.899 Other long term (current) drug therapy
CPT/HCPCS: 71045; 80048; 84484; 84703; 85025; 85379; 93005; 99285; A4216

== ENCOUNTER 2019-02-08 09:00 | Outpatient (RCR) | payer MEDICAID, SELFPAY ==
--- NOTE | 2019-02-08 09:05 | BH.SGPN.GN ---
Behaviors/Verbalizations/Mental Status: []Client alert and oriented,casually dressed and groomed. Eye contact good. Motor activity appropriate. Speech within normal limits. Affect constricted, mood anxious. Thoughts linear, logical, no signs of hallucinations or delusions. Reviewed client?s symptom tracker, no risk for suicidal ideation, plan, or intent as of 02/08/19. Client Response/Progress/Benefit: []Client responded well to session, contributing to discussion. Client reports feeling ?anxious but hopeful? today. Client shared this is her second time doing the IOP program and client stated, ?It feels super weird and defeating, but it helped last time.? Client shared she is returning to IOP because her anxiety has significantly worsened. Client reported a positive is that she knows coping skills and she has been more honest with her supports. Client appeared to benefit from connecting with peers and identifying her plans for treatment. Client?s first day in IOP, will continue IOP to reduce anxiety and improve daily functioning.?
--- NOTE | 2019-02-08 10:12 | BH.SGPN.GN ---
Behaviors/Verbalizations/Mental Status: [Pt alert and oriented, casually dressed. Eye contact good. Motor activity appropriate. Speech within normal limits. Affect congruent, mood depressed, anxious. Thoughts linear, logical, no signs of hallucinations or delusions.] Client Response/Progress/Benefit: [Pt responded well to session, attentive and providing some throughout. Pt connected with discussion on different types of anxiety, as well as the difference between ?normal? anxiety and anxiety disorders. Pt helped the group identify examples of the various ways anxiety manifests and symptoms associated with thoughts, physical symptoms, and safety behaviors. Pt gained awareness of personal physical symptoms which included: rigidity, sweating, nausea, headache, tense muscles, fidgeting, agitation, restlessness, and poor concentration. Pt identified minimizing, reassurance seeking, rumination, isolation, and becoming irritable as safety behaviors pt has engaged in that provide short term relief but increase anxiety over time. Pt appeared to benefit from gaining insight to safety behaviors and how anxiety manifests itself, as well as harmful impact of safety behaviors on mental health. Appears to be progressing with increasing awareness of mental health symptoms and impact on functioning. Will continue IOP to promote continued skill application, improve self-esteem/motivation levels, improve mood stability, and prevent decompensation.] Narrative Note: []
--- NOTE | 2019-02-08 12:14 | BH.MDN ---
Multi-Disciplinary Note - Note 45-min Individual Time Started:: 11:20 Date: 02/08/19 Purpose of session/treatment goals addressed:: Assessed current symptoms. Began to develop goals for IOP. Eye Contact:: Fair Motor Activity:: Restless Appearance:: Casual Speech:: Pressured Mood:: Anxious Affect:: Congruent Thoughts:: Linear, Logical, No evidence of hallucinations/delusions noted Staff Interventions:: Utilized SC techniques to elicit change behaviors. Worked with pt to identify warning signs. Gave assigment to develop method to complete daily anxiety self-checks to find out what her baseline anxiety level is. Client Response:: Pt discussed how she left IOP to aburtly and early on 01/12/19. States that she did not have a strong aftercare plan or support. Discussed how she had done well at her job for two weeks and than began to recognize high anxiety. Was able to identify warning signs however did not take action. Reports that anxiety began to esculate until it got to level 10 at work. Had panic attacks and began to have obsessive intrusive thoughts that the work dryer would catch on fire. Attempted skills however at that point it was too late. Left work and did not return the next day. Spent 3 days over her GMA's house to help with anxiety. This is one of several recent jobs that pt has quit due to anxiety. Goal is to develop a strategy to better manage work anxiety. Idnetified several warning signs including paranoia, somatic symptoms (feeling like something is wrong with me), agitation, talking fast, talking about things that don't make sense, hypersenitive, and hypervigilant. Pt is isolating and hopeless that she can never work again. States I just want to feel normal. Risks/Concerns:: Pt denies any suicidal ideations, plan, or intent. Contracts for safety. Protective factors reported. Future-oriented. Progress Toward Goals/Plan:: Limited progress as this was pt's first day in the program. Embarrased about returning to IOP however reports that family was concerned with her isolation and lack of treatment for anxiety. Hopeless that she will fail again if she tries to get a job. Will continue in IOP to develop anxiety management plan, improve functioning to return to work, and prevent decompensation. Time Stopped:: 12:00
--- NOTE | 2019-02-08 14:04 | BH.MTP ---
[facility] Treatment Plan - Patient Information Program Physician:: Dr. Elijah De Guzman Primary Therapist:: Rico Martinez - Psychiatric Diagnoses Psychiatric Diagnoses:: Generalized Anxiety Disorder. Persistent depressive disorder. Chronic adjustment disorder with anxiet. Borderline personality disorder Diagnosis Code(s):: f41.1 - Estimated LOS Estimated LOS (in weeks):: 6 Problem/Goal #1 - Problem/Goal #1 Stated Goal:: Client will reduce overall frequency, intensity, and duration of the anxiety so that daily functioning is not impaired Description of Barriers: Hoplessness, doesn't beleive that she has control over her anxiety, when overwhelmed doesn't use coping skills. Ignores warning signs when symptoms are managable. Functional Impact: Has lost several jobs due to anxiety and panic. Also lead to isolation and ruminations daily. Goal Relevant Strengths/Supports: Parents, close friend - Objectives Objective #1 Stated Objective: Client will develop a concrete and individualized anxiety management plan focusing on being pro-active which includes warnings signs, daily strategies to guage anxiety level, beahvioral activation skills, and internal and external coping skills. Interventions: Through individual and group counseling pt will learn about behavioral activation, coping skills, thought-stopping, and idnetifying warning signs. Discharge Criteria: Completed this individualized anxiety management plan. Will also show a decrease in anxiety based on DSM 5 scales Target Date: 03/11/19 Review Date: 03/11/19 Problem/Goal #2 - Problem/Goal #2 Stated Goal:: Client will decrease depressive symptoms, isolation, suicidal ideations, anhedonia, poor self-esteem, and negative thoughts due to Persistent Depressive Disorder through Intensive Outpatient Program. Description of Barriers: Hopelessness reguarding her future, several conflicted relationships, unemployed, financial stressors, percieved hx of failure in managing her mood. Functional Impact: Isolation, difficulty completing tasks and responsibilities, hospitalizations relatd to SI - Objectives Objective #1 Stated Objective: Client will decrease depressive symptoms, isolation, and agitation due Persistent Depressive Disorder through Intensive Outpatient Program. Interventions: Individual and group counseling well assist client in learning internal coping strategies to manage depressive symptoms, along with helping client identify triggers Discharge Criteria: Client will have achieved this goal when can verbalize and has practiced at least 2 healthy coping strategies when depressed. Will also dhow a reduction in depression scales on the DSM 5 scales Target Date: 03/11/19 Review Date: 03/11/19 Problem/Goal #3 - Problem/Goal #3 Stated Goal:: ncrease awareness of Boderline Personality Disorder and its impact on impulsiveness, mood swings, and relationship conflicts Description of Barriers: hronic hx of conflicted relationships, poor emotional regulation, self-sabatoge, and impulsive decisions. Functional Impact: ulsiveness and poor emotional regulation impacts daily functioning often leading to poor decisions. - Objectives Objective #1 Stated Objective: Pt will be able to identify borderline personality traits and thier impact on daily functioning, impulsivity, and relationships Interventions: Will provide pt with educational handouts and further discuss role of BPD in managing emotions. Will education and challenge pt on use of skills to decrease impulsive decisions. Discharge Criteria: pt will be able to identify all criteria for BPD and how BPD relates to relatinships, mood, and impulsivity. Will also be able to identify 3 examples of utilizing skills to decrease impulsive decisions. Target Date: 03/11/19 Review Date: 03/11/19
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
--- NOTE | 2019-02-12 09:05 | BH.SGPN.GN ---
Behaviors/Verbalizations/Mental Status: [] Eye contact is good. Motor activity is appropriate. Appearance is casual. Speech is Appropriate. Mood is anxious. Affect is congruent. Thoughts are linear and logical. No evidence of psychosis. Reviewed daily check in sheet and no reports of suicidal ideations or intent. Client Response/Progress/Benefit: [] Pt was an active participant in group discussion. Emotion for today is stressed. Shared recent stressors related to her car which is currently in the shop. This has limited pt to a degree however she is utilizing some thought reframing skills to see the benefits and stay positive Everything will work out instead of catastrophizing. States I'm focusing on moving forward. Progress noted per pt report. Benefited from group support and encouragement. Provided feedback to peers. Pt utilizing skills which is improving mood. Will continue in IOP to prevent decompensation, improve functioning to return to work forces, and decrease anxiety. Narrative Note: []
--- NOTE | 2019-02-12 10:20 | BH.NA ---
Physical Data - Vital Signs Pulse Rate: 96 Respiratory Rate: 12 Blood Pressure: 105/70 - Height/Weight Height: 1.65 m Weight:: 77 kg Weight in Pounds: 169.8 lbs Current Medication Compliance - Medication Compliance Do you take your medication as prescribed?: No - inconsistent Do you need assistance with taking medication?: No Have you had side effects from medication?: No Nutritional History - Appetite Nutritional Instructions:: If client shows signs of a swallowing problem, weight change of 10 pounds or more in the last month, or is on a diabetic diet, the physician will review and request a dietitian consult, as appropriate. All unintentional weight loss will be referred to the physician for decision on need for dietitian consult. Describe your appetite:: Good Have you noticed a change in your eating habits lately?: No Additional nutritional information:: 6# weight gain in 4 weeks Functional Assessment - Sleep Pattern Describe any problems with sleeping: Client endorese difficulty falling asleep most nights, citing anxiety about being alone in her apartment. - Activities Motor Activity:: Functional Sensory/Communication Assess - Hearing Problems Do you have any hearing problems?: Adequate - Communication Problems What is your primary language?: [place] Learning Assessment - Learning Barriers Learning Barriers:: Ready to learn Medical Problems/History - Pain Assessment Do you have acute or chronic pain?: No - Female Reproductive Do you think you may be ?: No Number of children:: 1 Have you reached menopause?: No Do you have any history of breast disease?: No Substance Abuse - Substance Abuse Please describe substance abuse in the last 30 days:: Client denies ETOH and illicit substance use/abuse. Smokes 1ppd cigarettes. Mental Status Summary - Mental Status Significant Findings/Observations on Appearance and Mood:: Sushma is A&Ox4, cooperative with interview, and makes fair eye contact. She appears slightly disheveled with suboptimal hygiene and grooming. She is hyperactive. Steady gait. Speech is clear and of normal rate and volume. Moderate anxiety. Labile affect with intermittent tearfulness. No symptoms of delusions. Denies hallucinations, HI, and SI. Suicide Assessment - Suicidal Ideation Are you currently or have you been suicidal in the past?: Yes Suicidal Intentional Rating Scale (SIRS): Suicidal thoughts (past) Physician Notification: If Active suicidal thoughts/Will not contract for safety is checked, contact physician and document in the Physician Notification section below. Past Psychiatric History - Treatment Hx Past Psychiatric Medications:: Wellbutrin Describe (age, circumstance, etc) any past hospitalizations: 3 prior hospitalizations - most recent 12/24/18 at [facility] Fall Risk Assessment - Age Age: Less than 60 - Mental Status Mental Status: Willing & able to ask for assistance when needed - Physical Status Physical Status: No problems - Impairments Impairments: None - Elimination Elimination: Continent AND independent - Gait or Balance Gait or Balance: Walks independently - Hx of Falls History of falls in the past 6 months: No known history - Medications/Substances Psychotropics:: Antidepressants, Anxiolytics (e.g. benzodiazepines) Medications/substances used within the past 24 hours or ordered to administer: 1-2 of the medications/substances listed above - Total Score Total Points:: 1 Physician Notification - Physician Notification Physician Notified: Elijah De Guzman Method of Notification: Face to Face Comments: treatment planning discussion RN Summary of Impressions - Impressions Recommendations: Include psychiatric and medical issues, treatment planning recommendations, and discharge planning needs. Impressions: Psychiatric Issues: persistent depressive disorder, generalized anxiety disorder, borderline personality disorder - Level of Care How do the client's current symptoms and functional deficits support need for this level of care?: Sushma has had progressive decompensation in her mental health since discharging from this [facility] 3 weeks ago. She states that she has had decreased medication compliance because I was feeling pretty good. She also identifies several stressors including a conflict with a neighbor from whom she fears retaliation, and feeling trapped at work. Sushma describes intrusive thoughts and constant anxiety about the issues above. Additionally, she has trouble reconsiling not having custody of her children, despite knowing that the children are in a more stable environment with its father and stepmother. IOP will promote gains and provide social support to prevent further decompensation.
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
--- NOTE | 2019-02-12 13:28 | BH.DR.ITP ---
Initial Treatment Plan - Patient Information Visit Information: ADMISSION DATE: 02/08/19 EXPECTED LOS: 4-6 weeks Diagnoses:: DANA; Persistent depressive disorder; chronic adjustment disorder with anxiety; borderline personality disorder - Problems/Symptoms Problem #1:: Anxiety Symptom:: Tedency to worry, feel anxious, get stressed out easily Problem #2:: depression Symptom:: Tendency to become depressed, anhedonia; low energy Problem #3:: Borderline personality disorder Symptom:: High impulsivity; moodiness; relationship problems
--- NOTE | 2019-02-16 09:10 | BH.SGPN.GN ---
Behaviors/Verbalizations/Mental Status: [] Eye contact is good. Motor activity is appropriate. Appearance is casual. Speech is Appropriate. Mood is euthymic. Affect is full. Thoughts are linear and logical. No evidence of psychosis. Reviewed daily check in sheet and no reports of suicidal ideations or intent. Client Response/Progress/Benefit: [] Pt was an active participant in group discussion. Emotion for today is positive. Reports increased time on her hands. Increased socializations with supports. Able to aks for help without feeling like this is sign of weakness. Increased motivation to clean around the house which she has not done in several months. Has some difficulty decisions to make regarding housing however is carefully thinking about decisions rather than making an impulsive decision based on emotions. Progress noted per pt report. Benefited from group support and praise. Will continue in IOP to provide support and prevent decompensation. Narrative Note: []
--- NOTE | 2019-02-16 10:15 | BH.SGPN.GN ---
Behaviors/Verbalizations/Mental Status: []Client alert and oriented, neatly dressed and groomed. Eye contact good. Motor activity appropriate. Speech within normal limits. Affect congruent, mood euthymic. Thoughts linear, logical, no signs of hallucinations or delusions. Client Response/Progress/Benefit: []Client responded well to session, positive contributions and attentive throughout. Client indicated connecting with the topic of cognitive distortions and shared ?your thoughts impact your mood and choices.? Client participated in the discussion of how negative thoughts impact one?s mental health and relationships. Client agreed with peers that cognitive distortions reinforce anxiety, lead to self-sabotage, and can decrease self-esteem. Client provided reassurance to peers that learning to combat cognitive distortions and reframe thoughts becomes easier with time and effort. Client contributed as the group defined and reflected upon various types of distortions. Client since coming to IOP the first time, she has become much better with challenging her distortions. Client reported she continues to struggle at times with all or nothing thinking and mental filtering. Client benefitted from increasing awareness of cognitive distortions and how they can impact emotions and behaviors. Progress noted as client reports applying mindfulness and self-reflection to improve her mental health. Client to continue IOP to reduce anxiety and increase mood stability.
--- NOTE | 2019-02-16 11:20 | BH.SGPN.GN ---
Behaviors/Verbalizations/Mental Status: [Client alert and oriented, casually dressed, hygiene appropriate. Eye contact fair to good. Motor activity appropriate, at times restless. Speech within normal limits. Affect congruent, mood dysthymic and anxious. Thoughts linear, logical, no signs of hallucinations or delusions.] Client Response/Progress/Benefit: [Pt responded well to session, providing input and constructive feedback throughout. Pt engaged in the discussion reviewing various types of distortions as well as impact they have on mental health. Shared connecting with distortions of catastrophizing, mind reading, and predicting the future. She provided feedback regarding impact of each on mental health, indicating that they can lead to decreased self-esteem and depression. Pt helped the group practice challenging the example cognitive distortions and did well to identify evidence against negative thoughts. Pt assisted the group in learning ways to combat negative thinking. Stated she plans to use reframing strategies and increasing awareness to decrease use of distorted thoughts. Appeared to benefit from practicing thought challenging and gaining awareness of the effort it takes to reframe negative thoughts. Progress noted as pt reports increased ability to connect materials to own thought patterns and increased stability. Pt to continue IOP to reduce depression and increase communication with self and supports, as well as decrease isolative behaviors.] Narrative Note: []
--- NOTE | 2019-02-16 14:13 | BH.MDN ---
Multi-Disciplinary Note - Note 30-min Individual Time Started:: 12:30 Date: 02/16/19 Purpose of session/treatment goals addressed:: Assessed current symptoms and functioning. Reviewed progress in IOP. Finished up treatment planning. Eye Contact:: Good Motor Activity:: Appropriate Appearance:: Casual Speech:: Appropriate Mood:: Anxious Affect:: Congruent Thoughts:: Linear, Logical, No evidence of hallucinations/delusions noted Staff Interventions:: Utilized NE techniques to elicit change behaviors. Praised pt for utilizing skills and practicing living in the present. Client Response:: Pt reports that she is feeling much better this week mentally than she had the previous week. Hopeful and optimistic. Reports several stressors this past week however states I want to live so I just have to find the best way to do that. Discussed recent decision that she has to make regarding housing. She is taking her time and not acting implusively with this decision. Also is not forcing herself into another job till she feels she can manage working. She again reviewed her warning signs to anxiety and distress. She did not complete homework assignment to research strategies to utilize when she notices warning signs. Reports that she is utilizing thought reframing skills which is benficial however it would be beneficial to return to completeing thought log. Encouraged her to take more active role in finding her own individualized plan to senior contracts manager emotions rather than trying to use skills given to her by others. Risks/Concerns:: No risks or concerns noted. Progress Toward Goals/Plan:: Progress noted. refer above. More hopeful. Utilizing skills consistently. Has some stressors and points of depression and anxiety. However is proactive in managing emotions rather than ruminating and isolating. [place] like she is struggling with parenting at times and signed up for parenting class. More social. Less impulsive. More mindfull of the moment than worrying about the future. Will continue in IOP to prevent decompensation, improve coping skills, and improve functioning to return to work. Time Stopped:: 13:00
--- NOTE | 2019-02-16 14:29 | BH.MDN_ITS ---
Multi-Disciplinary Note - Note 30-min Individual Time Started:: 12:30 Date: 02/16/19 Purpose of session/treatment goals addressed:: Assessed current symptoms and functioning. Reviewed progress in IOP. Finished up treatment planning. Eye Contact:: Good Motor Activity:: Appropriate Appearance:: Casual Speech:: Appropriate Mood:: Anxious Affect:: Congruent Thoughts:: Linear, Logical, No evidence of hallucinations/delusions noted Staff Interventions:: Utilized IA techniques to elicit change behaviors. Praised pt for utilizing skills and practicing living in the present. Client Response:: Pt reports that she is feeling much better this week mentally than she had the previous week. Hopeful and optimistic. Reports several stressors this past week however states I want to live so I just have to find the best way to do that. Discussed recent decision that she has to make regarding housing. She is taking her time and not acting implusively with this decision. Also is not forcing herself into another job till she feels she can manage working. She again reviewed her warning signs to anxiety and distress. She did not complete homework assignment to research strategies to utilize when she notices warning signs. Reports that she is utilizing thought reframing skills which is benficial however it would be beneficial to return to completeing thought log. Encouraged her to take more active role in finding her own individualized plan to desk manager emotions rather than trying to use skills given to her by others. Risks/Concerns:: No risks or concerns noted. Progress Toward Goals/Plan:: Progress noted. refer above. More hopeful. Utilizing skills consistently. Has some stressors and points of depression and anxiety. However is proactive in managing emotions rather than ruminating and isolating. [place] like she is struggling with parenting at times and signed up for parenting class. More social. Less impulsive. More mindfull of the moment than worrying about the future. Will continue in IOP to prevent decompensation, improve coping skills, and improve functioning to return to work. Time Stopped:: 13:00
--- NOTE | 2019-02-18 09:10 | BH.SGPN.GN ---
Behaviors/Verbalizations/Mental Status: [] Eye contact is good. Motor activity is appropriate. Appearance is casual. Speech is Appropriate. Mood is anxious. Affect is congruent. Thoughts are linear and logical. No evidence of psychosis. Reviewed daily check in sheet and no reports of suicidal ideations or intent. Client Response/Progress/Benefit: [] Pt was an active participant in group discussion. Provided appropriate feedback to peers. Shared that she has started to right a list of things that make her feel bad and good. She is compiling the list to increase awareness and identify what strategies that she she could use to help herself get unstuck. Discussed the numerous benefits to this list and states she is taking a more active role in identifying her own individualized set of strategies. Also discussed her parents returning to [place] tomorrow. Progress noted per pt report. Benefited from group support and encouragement. Will continue in IOP to stabilize anxiety, prevent decompensation, and improve functioning so she can return to work. Narrative Note: []
--- NOTE | 2019-02-18 10:20 | BH.SGPN.GN ---
Behaviors/Verbalizations/Mental Status: []Client alert and oriented, casually dressed and groomed. Eye contact good. Motor activity appropriate. Speech within normal limits. Affect congruent, mood euthymic. Thoughts linear, logical, no signs of hallucinations or delusions. Client Response/Progress/Benefit: []Client responded well to session, positive contributions to discussion. Client commented on the quote and shared the biggest change her in life came from client realizing she needed to take action in her mental health treatment ?for myself and my son.? Client engaged in the discussion of what it means to ?take action? in one?s mental health treatment. Client agreed with peers that to make change, one needs self-awareness and follow through. Client identified things in her life she wants to start taking control over and change. These things included: not feeling confident, impulsivity, catastrophizing, and black and white thinking. Client stated if she could start gaining more control over her catastrophizing thoughts, the other stressors would reduce as well ?because they all feed into each other.? Client appeared to benefit from identifying things that are holding her back from mental wellness and learning what it means to ?take action.?
--- NOTE | 2019-02-18 11:25 | BH.SGPN.GN ---
Behaviors/Verbalizations/Mental Status: [Client alert and oriented, casually dressed and groomed. Eye contact good. Motor activity appropriate, somewhat restless. Speech appropriate rate and tone. Affect congruent, mood euthymic. Thoughts linear, logical, no signs of hallucinations or delusions.] Client Response/Progress/Benefit: [Client was an active participant AEB client providing input to discussion and taking notes throughout. CLient attentive and noted connecting to discussion of the different zones of taking action as well as the pros and cons of each. Client agreed with peers that to grow and improve mental health, one must step out of their comfort zone, but not take on too much at once to prevent staying stuck but also avoid burnout. Client completed worksheet in which she identified a problem area to focus on, a SMART goal to help work on problem area, and identify additional supports needed to be successful. Client identified she wants to increase self-confidence. Client identified a small goal which is to reach out to supports and practice doing something she feels she is good at daily. Client stated additional supports needed to be successful with goal which included: identifying and challenging distortions, reminding herself to use her supports, taking ?baby steps?, and remembering costs of not doing it. Appeared to benefit from creating a small goal to aid in mental health progress. Will continue IOP tx to promote use of healthy coping skills, reduce anxiety, improve engagements and mood stability, and prevent decompensation.] Narrative Note: []
--- NOTE | 2019-02-23 09:10 | BH.SGPN.GN ---
Behaviors/Verbalizations/Mental Status: [] Eye contact is good. Motor activity is appropriate. Appearance is casual. Speech is Appropriate. Mood is euthymic. Affect is full. Thoughts are linear and logical. No evidence of psychosis. Reviewed daily check in sheet and no reports of suicidal ideations or intent. Client Response/Progress/Benefit: [] Pt was an active participant in group discussion. Provided appropriate feedback to peers. Emotion for today is positive. Shared with the group some recent mental health wins. Spent time with son over the weekend. Feels more confident in her ability to perceive the world and her purpose and future. Shared that being hopeful and having an idea of what she wanted out of life has always been a struggle however its getting easier. Utilizing skills. Reframing intrusive thoughts. Progress noted per pt report. Will continue in IOP to prevent decompensation, provide support and guidance for consistent mood stabilization, and improve daily functioning. Narrative Note: []
--- NOTE | 2019-02-23 10:20 | BH.SGPN.GN ---
Behaviors/Verbalizations/Mental Status: []Client alert and oriented, neatly dressed and groomed. Eye contact good. Motor activity appropriate. Speech within normal limits. Affect congruent, mood anxious, euthymic. Thoughts linear, logical, no signs of hallucinations or delusions. Client Response/Progress/Benefit: []Client receptive of session and providing to discussion. Did well to participate in the activity and contributed to the discussion of the group topic of resilience. Client defined resilience as having determination to make it through difficult situations in life. Client gave examples for how resilience can positively impact mental health and wellness. Client engaged in small group discussion about the various strategies that can help strengthen one's resilience and provided examples of the benefits of optimism and acceptance. Client indicated that she is doing better with being optimistic, but she continues to struggle with accepting change which at times impacts client?s resilience. Client seemed to benefit from increased awareness of various components that can contribute to increased resilience. Progress noted as client reports a more positive outlook since her last IOP admission, however, she continues to struggle with mood stability. Continued IOP recommended to prevent decompensation and promote healthy skill application.
--- NOTE | 2019-02-23 11:17 | BH.SGPN.GN ---
Behaviors/Verbalizations/Mental Status: [Client alert and oriented, casually dressed and appropriately groomed. Eye contact good. Motor activity appropriate. Speech within normal limits. Affect congruent to topic being discussed, mood euthymic, anxious. Thoughts linear, logical, no signs of hallucinations or delusions.] Client Response/Progress/Benefit: [Client engaged participant throughout which was evidenced by client providing input to discussion and listening attentively to peers. Client worked cooperatively with peers to identify how each resiliency factor can help increase personal resiliency. Client reported he wants to work on the resiliency component of ?take care of yourself?. Client stated she will work on increasing personal resilience by improving ability to engage in self-care daily and begin to improve ability to spend time engaging in activities that make her feel confident and calm. Reports plans to increase artistic engagement. Client appeared to benefit from identifying goal to improve personal resilience factors. Client to continue IOP to continue to encourage increased use of healthy coping skills, continue to reduce depression, increase mood stability, and prevent decompensation.] Narrative Note: []
--- NOTE | 2019-02-23 15:34 | BH.MDN_ITS ---
Multi-Disciplinary Note - Note 45-min Individual Time Started:: 12:15 Date: 02/23/19 Purpose of session/treatment goals addressed:: Assessed current symptoms. Reviewed progress in IOP level of care. Reviewed homework regarding developing of individualized plan to manage emotions and warning signs. Pt reported 1/5 for suicidal ideations on check in sheet this AM. Eye Contact:: Good Motor Activity:: Appropriate Appearance:: Casual Speech:: Appropriate Mood:: Depressed Affect:: Flat Thoughts:: Linear, Logical, No evidence of hallucinations/delusions noted Staff Interventions:: Utilized [place] techniques to elicit change behaviors. Challenged thoughts. Reviewed safety plan, warning signs, behavioral activiation plan, and coping skills list. Client Response:: Pt states I'm doing well now. Reports that she had fleeting passive suicidal thoughts yesterday. Reports thoughts about wishing to be . Denies active ideation, intent, or plan. Walked therapist through her thinking. Able to identify healthy and unhealthy coping skills. Able to identify thought patterns and the general theme was rejection. Texted a friend and this friend did not respond. Rumination and personalizing. Used set of coping skills identifed in IOP such as distraction, thought challenging, and reaching out to support. Was able to bring emotions down to managable level. Has developed a behavior activation plan with list of individualized coping skills to use when she notices warning signs. Reports that passive thoughts of have decreased today. More hopeful however is begining to worry about getting a job and not being a failure which are warning signs in the past. She applied for a job impulsively. Insight and awareness .encouraged to pace herself. Talked about wheter or not she wants to move in with parents. Believes this would help her decrease stress, lonliness, and help with fianances. Singed up for parenting class which starts tomorrow. Risks/Concerns:: No risks or concerns noted. Had passive thoughts of or wish to be yesterday in the context of feelings of rejection. Utilized plan to manage. Reports fleeting thoughts of desire to be this AM however decreased severity, intensity, and frequency from yesterday. Contracts for safety. Protective factors. Future-oriented. Progress Toward Goals/Plan:: Regression noted. Noticing warning signs to decompe nsation and therapist is encourging safety plan, warning sign recognition, and use of individualized plan to manage emotions which she has completed. Daily mood checks encouraged throughout the day. ABle to see progress from past admission and is hopeful, however thoughts of being a failure, financial stress, and pressuring herself to get a job are re-occuring. Will continue in IOP to prevent decompensation, maintain safety, and provide support. Time Stopped:: 12:55
--- NOTE | 2019-02-25 09:10 | BH.SGPN.GN ---
Behaviors/Verbalizations/Mental Status: [] Eye contact is good. Motor activity is appropriate. Appearance is casual. Speech is Appropriate. Mood is euthymic. Affect is full. Thoughts are linear and logical. No evidence of psychosis. Reviewed daily check in sheet and no reports of suicidal ideations or intent. Client Response/Progress/Benefit: [] Pt was an active participant in group discussion. Provided appropriate feedback. Emotion for today is anxious and tired. 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 This was a voluntary group as she is looking to increase her parenting skills. Reports that the experience was positive and she learned a great deal. She is feeling more optimistic and hopeful about the future. States 3 months ago I didn't believe I would live past by 31th birthday and currently I'm looking forward to the future and Actually have goals about the future. Goes on to state I continue to have bad days but I'm actually doing something about them and trying to decrease Thier impact. Progress noted per pt report. Will continue in IOP to maintain gains and prevent decompensation. Narrative Note: []
--- NOTE | 2019-02-25 11:30 | BH.SGPN.GN ---
Addendum entered and electronically signed by OLAYINKA Espinoza 10/10/19 12:52: Amended to include missing group #2 documentation Date: 02/25/19 1025 Duration: 54 minutes Meat Pickler: Jasmyn Theodore/OLAYINKA Group Topic: [Rat Trap] # of Participants: [9] Goal of Group: [To identify within self what is keeping client trapped from achieving better quality of life.] Staff Interventions: [Therapist facilitated discussion about what is keeping client?s stuck from moving toward mental wellness. Therapist assisted clients in connecting how thoughts can contribute to keeping clients stuck. Therapist led discussion about barriers clients face from making changes to help one move forward. Therapist provided support by using active listening and giving feedback to others.] Behaviors/Verbalizations/Mental Status: Client alert and oriented, casually dressed and groomed. Eye contact good. Motor activity appropriate. Speech within normal limits. Affect congruent, mood euthymic. Thoughts linear, logical, no signs of hallucinations or delusions. Client Response/Progress/Benefit: Client responded well to session, attentive and participating throughout. Participated in discussion of things that can keep people feeling trapped or stuck in life including; isolation, lack of trust, past experiences, negative perspective, lack of awareness, denial, fear, and low self-esteem. Group discussed the connection between thoughts, emotions, and behaviors as well as how negative thinking can keep a person stuck. Client attentive during psychoeducation on maintenance cycles. Shared that she often doesn?t notice she is in a cycle until she?s been there awhile but is doing better to recognize warning signs. Client able to identify negative thoughts that have reinforced depression and kept client feeling trapped. Client shared a negative thought maintaining depression as ?I?m going to be struggling with this forever, it?s never going to get better.? Client reported this thought has caused increased anxiety, hopelessness, depression, apathy, and led to increased isolation and avoidance. Appeared to benefit from gaining awareness of how negative thoughts reinforce mental health symptoms and keep people stuck. Progress noted in client?s report of improved awareness of thoughts keeping her stuck. Will continue IOP to prevent decompensation, increase emotional regulation, and maintain safety. Original Note: Behaviors/Verbalizations/Mental Status: []Client alert and oriented, neatly dressed and groomed. Eye contact good. Motor activity appropriate. Speech within normal limits. Affect congruent, mood euthymic. Thoughts linear, logical, no signs of hallucinations or delusions. Client Response/Progress/Benefit: []Client responded well to session, providing supportive statements to peers. Client appeared to connect with maintenance cycles and recognized how negative thinking can keep a person stuck. Client identified a negative thought that has kept her stuck. Client?s thought was ?anxiety is stronger than I am.? Client shared when she thinks this way it increases her depression, she avoids situations, smokes more, isolates, lashes out, and does not function. Client recognized that this thought is unrealistic as client shared ?it?s not true I can combat it.? Client able to reframe the thought to ?anxiety can be very difficult to deal with but I?m able to combat it with coping skills.? Client shared this thought would improve her mental health because it would lead increased confidence, being more social, more happiness, and belief in herself. Client appeared to benefit from practicing challenging negative thinking. Client has made progress in implementing healthy coping skills to reduce anxiety. Client to continue IOP to promote gains and increase ability to manage stress.
--- NOTE | 2019-03-02 09:10 | BH.SGPN.GN ---
Behaviors/Verbalizations/Mental Status: [] Eye contact is good. Motor activity is appropriate. Appearance is casual. Speech is Appropriate. Mood is euthymic. Affect is full. Thoughts are linear and logical. No evidence of psychosis. Reviewed daily check in sheet and no reports of suicidal ideations or intent Client Response/Progress/Benefit: [] Pt was an active participant in group discussion. Emotion for today is happy and nervous. Shared that her weekend went well and she spend a good portion on it with her son. As she was reflecting on the previous week she reported that she has actually had a pretty consistent and positive week. Reports improved mood with bouts of happiness. Group provided feedback and their was a discussion on how do we know that we are happy?. Motivated and completing household tasks. Pt reports that she is fearful she is hypomanic. Group provided some feedback on this. Pt reports that she feels in charge of her thoughts and actions and will continue to monitor her mood. Overall reports that from August to February she was depressed on a daily basis. Recently more positive, social, and hopeful. Utilizing numerous skills on a daily basis. Progress noted per pt report. Will continue in IOP to maintain gains, prevent decompensation, and monitor mood for hypomania. Narrative Note: []
--- NOTE | 2019-03-02 10:15 | BH.SGPN.GN ---
Behaviors/Verbalizations/Mental Status: []Pt eye contact good, casually dressed, motor activity appropriate, speech normal rate and tone, mood euthymic, congruent affect, thoughts linear and intact, no evidence of delusions or hallucinations. Client Response/Progress/Benefit: []Client was engaged in group discussion at times and listened attentively to others. Client connected with the topic and able to identify common barriers that keep people stuck from moving forward. Client identified her current reality which client described as feeling like her moods are constantly going up and down with little consistency. Client stated currently she feels like her moods are on a up swing but when she feels good then she worries what will follow after the improved mood. Client able to identify his personal resilience factors in her current reality such as attending therapy, challenging distortions, and increased self-awareness. Client shared her realistic, desired reality would be having stable moods, improved coping skills to manage moods, and better recognition of warning signs of personal crisis. Benefited from group as client was able to identify current mental health state, resilience factors, and desired reality. Narrative Note: []
--- NOTE | 2019-03-02 11:17 | BH.SGPN.GN ---
Behaviors/Verbalizations/Mental Status: []Pt eye contact good, casually dressed, motor activity appropriate, speech normal rate and tone, mood euthymic, congruent affect, thoughts linear and intact, no evidence of delusions or hallucinations. Client Response/Progress/Benefit: []Pt was an active participant in group as evidenced by pt providing input throughout discussion and engaged in activity. Pt identified impulsivity, negative thoughts, lack of consistency, ignoring warning signs and overthinking as current barriers that are keeping her from desired reality. Through experiential activity group then worked together to develop strategies to overcome various obstacles such as; reframing, reviewing positives, healthy distractions, small goals, recognizing progress, setting boundaries, adjusting expectations, and many more. Pt identified a small goal to help her get closer to desired reality is to create a mental health maintenance plan to help increase consistency in applying healthy skills. Pt seemed to benefit from increased awareness of barriers and group brainstorming healthy strategies to overcome barriers. Pt progressing with increased self-awareness and expressing desire to develop plan to help her maintain progress. Narrative Note: []
--- NOTE | 2019-03-02 15:23 | BH.MDN ---
Multi-Disciplinary Note - Note 30-min Individual Time Started:: 12:30 Date: 03/02/19 Purpose of session/treatment goals addressed:: Reviewed current symptoms and progress in IOP. Addressed treatment goal plans. Eye Contact:: Good Motor Activity:: Appropriate Appearance:: Casual Speech:: Appropriate Mood:: Euthymic Affect:: Full, Bright Thoughts:: Linear, Logical, No evidence of hallucinations/delusions noted Staff Interventions:: utilized [place] techniques. Reviewed current concerns and discussed possible discharge. Client Response:: Pt reports that she has been in a positive mood for the past several days. Reports that she is happy and is getting tasks accomplished. Fearful that this is hypomania as she reports that she is sleeping less, spending more time with friends outside of the house, and is more impulsive. Chronic hx of impulsive behaviors even while depressed and anxious. On the other hand she is questioning whether this is just being happy. Appears to be on the fence about this. Poor sleep occurred just once. Insight and awareness of importance of being cognizant of mood and actions. Currently not taking Latuda prescribed to her. Encouraged her to reconsider this however she has not taken any psychotropic medications in several months. During the session she is smiling. Thoughts are linear and logical. Speech is WNL. Affect is full. Does not present as manic or hypomanic. She reports that she feels she is getting closer to being ready for discharge as she has been in IOP on and off since 11/2018. We agreed to wait a week before discharge and she is agreeable. Risks/Concerns:: no risks or concerns noted. Progress Toward Goals/Plan:: Progress noted. Presents with improved mood, decreased isolation, and limited depression/anxiety. No panic attacks or significant anxiety noted in over 2 weeks. Has developed concrete plan for anxiety and mood management. Utilizing skills for the past 2 weeks consistently. Unclear if improved mood is due to hypomania or simply happiness. Psychiatrist did not feel that pt was Bipolar in evaluation. Plan is to continue in IOP for the next week to ensure stablity with plan to discharge next week. Time Stopped:: 13:00
--- NOTE | 2019-03-05 09:07 | BH.SGPN.GN ---
Behaviors/Verbalizations/Mental Status: [Pt alert and oriented, casual dress, grooming appropriate. Eye contact good. Motor activity appropriate. Speech within normal limits. Affect congruent, mood anxious. Thoughts linear, logical, no signs of hallucinations or delusions. Reviewed pt?s dx symptom tracker and pt denies any SI, plan, or intent as of this date] Client Response/Progress/Benefit: [Pt engaged in group discussion, actively listening and providing feedback to the group. Emotion for today is conflicted as she is continuing to make sense of and accept her own mental health symptoms. Indicated that current ?mental health wins? include receiving a compliment from a support on the amount of progress she has made. Pt shared that this was a positive experience and felt good to know that others notice the effort she is placing into her own mental health. Noted further than this was an encouragement to continue to apply her skills. Additional win as feeling more self-aware of personal warning signs and triggers which has allowed her to better manage them and prepare. Pt went on to discuss coping skills she finds effective, appearing to benefit from reflecting upon the importance of accepting her emotions rather than fighting them. Current stressor is adjusting to new custody arrangements and not having her son home as often as she would like. Pt recommended continued IOP tx to promote ongoing skill application, maintain gains, and prevent decompensation as she completes aftercare planning. ] Narrative Note: []
--- NOTE | 2019-03-05 11:25 | BH.SGPN.GN ---
Behaviors/Verbalizations/Mental Status: []Client alert and oriented, neatly dressed and groomed. Eye contact good. Motor activity appropriate. Speech within normal limits. Affect congruent, mood euthymic. Thoughts linear, logical, no signs of hallucinations or delusions. Client Response/Progress/Benefit: []Client attentive, did well to remain attentive during discussion and activity. She was contributing and taking notes as group brainstormed on how fixed mindset thoughts experienced in the activity impacted ability to complete the task at hand. Client indicated she had fixed thoughts at the beginning of the activity because she has tried and not accomplished this activity in the past. Client acknowledged the consequences of fixed thinking including limiting possibilities. Worked with group to identify important components of a growth mindset. With reflection, client was able to apply cognitive restructuring to reframe fixed thoughts of ?I will never get better, I am always going to be mentally ill.? Client reframed this to ?as I improve my mental health I will continue to get better.? Client stated Benefitted from discussing benefits of growth mindset and strategies for reframing fixed thoughts. Client continues to make progress with challenging negative thoughts and applying coping skills to her daily life. Client to discharge from IOP next week, but she can continue to benefit from [facility] to establish aftercare.
[2019-03-26 09:55] VITALS: BP 105/70; PULSE 96; RESP 12
== END 2019-03-05 23:59 ==
LOC: BHIOP 09:00
PROVIDERS: Family Provider Family Medicine; PCP Family Medicine; Referring Provider Psychiatry & Neurology Psychiatry; Visit Provider Psychiatry & Neurology Psychiatry
DX: F41.1 Generalized anxiety disorder (principal); F43.22 Adjustment disorder with anxiety; F60.3 Borderline personality disorder; F19.11 Other psychoactive substance abuse, in remission; E66.3 Overweight; F17.210 Nicotine dependence, cigarettes, uncomplicated; I25.2 Old myocardial infarction; Z79.899 Other long term (current) drug therapy; Z81.8 Family history of other mental and behavioral disorders
CPT/HCPCS: 99204; H0035; H2012; H2020; T1002; 90832; 90834

== ENCOUNTER 2019-03-08 09:00 | Outpatient (RCR) | payer MEDICAID, SELFPAY ==
--- NOTE | 2019-03-08 09:10 | BH.SGPN.GN ---
Behaviors/Verbalizations/Mental Status: [] Eye contact is good. Motor activity is appropriate. Appearance is casual. Speech is Appropriate. Mood is euthymic. Affect is full. Thoughts are linear and logical. No evidence of psychosis. Reviewed daily check in sheet and no reports of suicidal ideations or intent. Client Response/Progress/Benefit: [] Pt was an active participant in group discussion. Emotion for today is Stressed. Shared that today is her last day in [facility]. Feels that she has made significant progress during this admission. Reports that she has shown consistent stability in the past couple weeks which is very uplifting to her. Discussed her symptoms and struggles back in 11/2018 and compared them to now. She has a job interview today and is realistic regarding what she can and cannot do. Reports that group on resiliency was something that stood out the most in the [facility] program. Reports that she is optimistic as she has really changed her perspective in the past few months. Progress noted per pt report. Will be discharged from [facility] today. Narrative Note: []
--- NOTE | 2019-03-08 10:25 | BH.SGPN.GN ---
Behaviors/Verbalizations/Mental Status: []Client alert and oriented, casually dressed. Eye contact good. Motor activity appropriate. Speech within normal limits. Affect congruent, mood euthymic. Thoughts linear, logical, no signs of hallucinations or delusions. Client Response/Progress/Benefit: []Pt active participant, provided input throughout discussion and listened attentively to others. Pt contributed to group discussion regarding mental health benefits of change and barriers in making those changes. Pt reported sometimes it can be helpful to reflect on past decisions, but have to be careful not to stay stuck on the past. Pt identified three small personal changes to improve mental health as: increase self confidence, be more consistent with using healthy coping skills, and improve resiliency. Pt identified barriers to making identified changes include: catastrophizing small problems, acting on intense moods, and comparing self to others. Pt appeared to benefit from gaining awareness of personal changes that would improve mental health and the barriers keeping client stuck. Progress noted in pt's increased awareness of barriers that impact ability to make changes in life. Pt has made significant progress since starting IOP and plan is for pt to discharge from [facility] today. Narrative Note: []
--- NOTE | 2019-03-08 11:26 | BH.SGPN.GN ---
Behaviors/Verbalizations/Mental Status: [Eye contact is good. Motor activity is appropriate. Appearance is casual. Speech is Appropriate. Mood is euthymic, positive. Affect is congruent . Thoughts are linear and logical. No evidence of psychosis. ] Client Response/Progress/Benefit: [Pt was an active participant, did well to participate in group activity and took on an active leadership role. She provided insight and input to discussion. Worked with group members to identify connections between activity and strategies for overcoming barriers to making changes. Pt did well to relate this back to personal mental wellness. Identified a specific change she would like to make for her mental health, barriers to making that change, and a SMART goal to reach that change. Shared she would like to work on increasing personal resilience by beginning to increase her ability to practice acceptance of what is out of her control and remind herself that the negative is only temporary. Discussed that this change would help to increase a sense of hope and positive mindset. Benefited from group as she was able to identify strategies to overcome barriers to change and create a plan for implementing one small change promoting personal growth. Pt set to discharge from IOP program on this date and is recommended ongoing outpatient tx to maintain gains, continue to promote healthy change behaviors, and maintain stability.] Narrative Note: []
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
== END 2019-03-08 14:00 | disposition home or self-care (01) ==
LOC: BHIOP 09:00
PROVIDERS: Family Provider Family Medicine; PCP Family Medicine; Referring Provider Psychiatry & Neurology Psychiatry; Visit Provider Psychiatry & Neurology Psychiatry
DX: F41.1 Generalized anxiety disorder (principal); F34.1 Dysthymic disorder; F60.3 Borderline personality disorder
CPT/HCPCS: H2020

== ENCOUNTER 2019-03-15 16:33 | Emergency (ER) | payer MEDICAID, SELFPAY ==
[2019-03-15 16:34] VITALS: BP 113/68; PULSE 98; RESP 18; TEMP 36.8; O2SAT 100; BMI 29.3
[2019-03-15] MEDS: 0.9% Normal Saline 1,000 ML 1000 ML IV (17:42)
[2019-03-15] MEDS: Ketorolac 30 MG/ML Syringe IV (17:42)
[2019-03-15 17:45] LABS: Absolute Lymphocyte Count 3.19 X10^3/ul (0.83-4.51); Absolute Neutrophil Count 4.9 X10^3/uL (2.0-7.7); Basophil# 0.08 X10^3/uL; Basophil% 0.9 % (0-1); Eosinophil# 0.45 X10^3/uL; Eosinophils% 4.9 % (0-5); Hematocrit 44.1 % (37-47); Lymphocyte # 3.19 X10^3/ul (4.0); Lymphocyte % 34.9 % (19-41); Mean Corpuscular Hgb 31.6 pg (27.0-32.0); Mean Platelet Vol. 8.9 fl (6.2-12.0); Monocyte# 0.53 X10^3/uL; Monocyte% 5.8 % (0-10); Neutrophil # 4.87 X10^3/uL (2.7-7.7); Neutrophil % 53.4 % (47-70); Platelet Count 250 K/mm3 (150-450); RBC Distribution Width CV 12.7 % (11.6-14.6); RBC Distribution Width SD 42.7 fl (35.1-43.9); Red Blood Count 4.74 M/mm3 (4.2-5.4); White Blood Count 9.1 K/mm3 (4.4-11.0)
[2019-03-15 17:57] LABS: Anion Gap 5 (5-15); BUN 7 mg/dL (7-18); BUN/Creat Ratio 7.8 RATIO (10-20); Calcium,Total 8.9 mg/dL (8.5-10.1); Chloride 108 mmol/L (98-107); EST Glomerular Filtration Rate 79 mL/min (>60); Est Glom Filt Rate - Afr Amer 96 mL/min (>60); Estimated Creatinine Clearance 84.49 ml/min; Glucose 81 mg/dL (74-106); Potassium 3.6 mmol/L (3.5-5.1); Sodium Level 140 mmol/L (136-145)
[2019-03-15 18:00] LABS: POSITIVE COUNT NO; POSITIVE DIFFERENTIAL NO; POSITIVE MORPHOLOGY NO
[2019-03-15 18:27] LABS: Bacteria 0 SEEN /hpf (None Seen); Mucous, Urine 0 SEEN /hpf (<or=2+); Red Blood Cells-Urine 0 SEEN /hpf (0-5); Squamous Epithelial Cells - UA 0 SEEN /hpf (5-10); White Blood Cells 0 SEEN /hpf (0-5)
[2019-03-15 18:30] LABS: Internal QC Validated? YES +Cl - CLEAR BKGD; Pregnancy, Serum, hCG Quali. NEGATIVE Negative
[2019-03-15 18:35] LABS: Color, Urine Yellow (Yellow); Glucose, Dipstick Normal (Normal); Ketone-Dipstick Negative (Negative); Leukocyte Esterase-Dipstick Negative /ul (Negative); Nitrite-Dipstick Negative (Negative); Occult Blood-Urine Negative /ul (Negative); Protein-Dipstick Negative (Negative); Urine Bilirubin Dipstick Negative (Negative); Urine Clarity Clear (Clear); Urine Urobilinogen Normal (Normal)
--- NOTE | 2019-03-15 18:54 | ED.VISSUMM ---
- ER Visit Summary Date of Service: 03/15/19 Chief Complaint: [Dental pain and not feeling well] History of Present Illness: The patient is a 28 F [presents the emergency department with complaint of dental pain for 6 months. Patient was at the dentist's office today and they attempted to anesthetize her left lower second molar unsuccessfully x6 attempts. She was told that the tooth may just be too infected and they prescribed her amoxicillin and made her another appointment for next week to come back in. Patient states that she has not been feeling well for few days and that she is had a headache and easy bruising. Patient has been feeling fatigued. Patient has a appointment with intake for primary care physician at [facility] next week. Patient denies urinary symptoms. She has had a fever up to 100 recently.] Physical Examination: [HEENT-PERRLA, EOMI. Cranial nerves II through XII grossly intact. TMs clear. Mucous membranes moist. No adenopathy. Dentition-patient has tenderness palpation over the left lower second molar. There is no abscess noted. No trismus on exam. No facial cellulitis. Cardiovascular-regular rate and rhythm without murmur or ectopy Lungs-clear to auscultation, chest wall stable without crepitus or subcu emphysema Abdomen-normoactive bowel sounds, soft, nontender, no rebound or rigidity, no peritoneal signs. Extremities-intact ?4, normal range of motion, normal pulses. Patient has bruise like area of ecchymosis to the left lateral thigh that slightly tender to palpation.] Test Results: [CBC with differential obtained was normal. Chemistries were normal. Urinalysis was normal hCG was negative.] Emergency Department Course and Treatment: [] Treatment Plan: [Patient is advised to continue with her amoxicillin and follow-up with her dentist as scheduled.] Disposition: [Discharged home in stable condition] Impression: [Odontalgia] This note was generated with [employer] dictation software. It may contain incorrect words, spelling, and punctuation that were not noted in review of the chart prior to signing ED Disposition - Plan for ED Patient: Referrals: Kirt Carrizales MD [Primary Care Provider] -
--- NOTE | 2019-03-15 18:57 | ED.DCSUM_ITS ---
- ER Visit Summary Date of Service: 03/15/19 Chief Complaint: [Dental pain and not feeling well] History of Present Illness: The patient is a 28 F [presents the emergency department with complaint of dental pain for 6 months. Patient was at the dentist's office today and they attempted to anesthetize her left lower second molar unsuccessfully x6 attempts. She was told that the tooth may just be too infected and they prescribed her amoxicillin and made her another appointment for next week to come back in. Patient states that she has not been feeling well for few days and that she is had a headache and easy bruising. Patient has been feeling fatigued. Patient has a appointment with intake for primary care physician at [facility] next week. Patient denies urinary symptoms. She has had a fever up to 100 recently.] Physical Examination: [HEENT-PERRLA, EOMI. Cranial nerves II through XII grossly intact. TMs clear. Mucous membranes moist. No adenopathy. Dentition- patient has tenderness palpation over the left lower second molar. There is no abscess noted. No trismus on exam. No facial cellulitis. Cardiovascular-regular rate and rhythm without murmur or ectopy Lungs-clear to auscultation, chest wall stable without crepitus or subcu emphysema Abdomen-normoactive bowel sounds, soft, nontender, no rebound or rigidity, no peritoneal signs. Extremities-intact ?4, normal range of motion, normal pulses. Patient has bruise like area of ecchymosis to the left lateral thigh that slightly tender to palpation.] Test Results: [CBC with differential obtained was normal. Chemistries were normal. Urinalysis was normal hCG was negative.] Emergency Department Course and Treatment: [] Treatment Plan: [Patient is advised to continue with her amoxicillin and follow- up with her dentist as scheduled.] Disposition: [Discharged home in stable condition] Impression: [Odontalgia] This note was generated with [employer] dictation software. It may contain incorrect words, spelling, and punctuation that were not noted in review of the chart prior to signing ED Disposition - Plan for ED Patient: Referrals: Kirt Carrizales MD [Primary Care Provider] -
--- NOTE | 2019-03-15 18:57 | ED.DEP ---
ED Disposition - Plan for ED Patient: Instructions: ED Tooth Pain Referrals: Kirt Carrizales MD [Primary Care Provider] - Additional Instructions: follow up with your dentist as instructed
[2019-03-15 19:09] VITALS: BP 117/75; PULSE 78; RESP 16; O2SAT 100
== END 2019-03-15 19:09 | disposition home or self-care (01) ==
LOC: ED 17:42
PROVIDERS: Emergency Provider Emergency Medicine; Family Provider Family Medicine; PCP Family Medicine
DX: K08.89 Other specified disorders of teeth and supporting structures (principal); Z72.0 Tobacco use
CPT/HCPCS: 80048; 81001; 84703; 85025; 96361; 96374; 99283; J7030; A4216

== ENCOUNTER 2019-03-17 00:42 | Emergency (ER) | payer MEDICAID, SELFPAY ==
[2019-03-17 00:43] VITALS: BP 120/82; PULSE 80; RESP 16; TEMP 36.6; O2SAT 98; BMI 29.9
--- NOTE | 2019-03-17 00:53 | ED.DCSUM_ITS ---
- ER Visit Summary Date of Service: 03/17/19 Chief Complaint: Leg pain History of Present Illness: The patient is a 28 F who noted a red area to her left skelton while lying in bed tonight. She denies any injury. She states that she has a burning sensation in her leg. She also states that she gets hives all over her body and is scheduled to see her PCP about this later this week. She does not believe the red spot on her leg is consistent with her hives. Physical Examination: Vital signs unremarkable. Patient sitting upright in bed no acute distress. Head and neck examination normal. Heart is regular rate and rhythm. Lung sounds are clear. Abdomen is soft and nontender. Left lower extremity examination with a 1 x 3 cm of erythema on the proximal anterior left skelton with mild inflammation. No calf tenderness or edema. Strong pulses are noted. Old appearing bruises are noted to her bilateral thighs. Test Results: [] Emergency Department Course and Treatment: The area of erythema on her skelton appears consistent with a localized reaction to potentially a small bite. I do not see a bite petar. Calf is soft and nontender and I do not have a clinical concern for DVT. Patient declines Benadryl stating it makes her too sleepy. She is instructed to keep the area clean and monitor for any signs of secondary infection. She will follow-up with her primary care physician this week as planned. Treatment Plan: [] Disposition: Discharge Impression: Localized inflammatory reaction left skelton This note was generated with [employer] dictation software. It may contain incorrect words, spelling, and punctuation that were not noted in review of the chart prior to signing ED Disposition - Plan for ED Patient: Disposition: Home or Assisted Living Instructions: ED Wound Care Referrals: Kirt Carrizales MD [Primary Care Provider] - Keep Germaine appointment
[2019-03-17 01:03] VITALS: BP 120/82; PULSE 80; RESP 16; O2SAT 98
== END 2019-03-17 01:03 | disposition home or self-care (01) ==
LOC: ED 01:01
PROVIDERS: Emergency Provider Emergency Medicine; Family Provider Family Medicine; PCP Family Medicine
DX: L08.9 Local infection of the skin and subcutaneous tissue, unspecified (principal); F41.9 Anxiety disorder, unspecified; F31.9 Bipolar disorder, unspecified; Z72.0 Tobacco use; Z79.899 Other long term (current) drug therapy
CPT/HCPCS: 99282

== ENCOUNTER → 2019-03-19 | Outpatient (CLI) | payer MEDICAID, SELFPAY ==
[2019-03-17 00:43] VITALS: BMI 29.9
[2019-03-19 12:14] LABS: Absolute Neutrophil Count 3.4 X10^3/uL (2.0-7.7); Basophil# 0.05 X10^3/uL; Basophil% 0.8 % (0-1); Eosinophil# 0.41 X10^3/uL; Eosinophils% 6.3 % (0-5); Hematocrit 43.5 % (37-47); Hemoglobin 14.6 g/dl (12.0-15.0); Lymphocyte % 35.3 % (19-41); Mean Corp Hgb Conc 33.6 g/gl (32-36); Mean Corpuscular Hgb 31.5 pg (27.0-32.0); Mean Corpuscular Volume 93.8 fL (81-99); Monocyte# 0.39 X10^3/uL; Neutrophil # 3.36 X10^3/uL (2.7-7.7); Neutrophil % 51.4 % (47-70); Platelet Count 267 K/mm3 (150-450); RBC Distribution Width CV 12.8 % (11.6-14.6); RBC Distribution Width SD 43.8 fl (35.1-43.9); Red Blood Count 4.64 M/mm3 (4.2-5.4); White Blood Count 6.5 K/mm3 (4.4-11.0)
[2019-03-19 12:21] LABS: POSITIVE COUNT NO; POSITIVE DIFFERENTIAL NO; POSITIVE MORPHOLOGY NO
[2019-03-19 12:43] LABS: ALB/GLOB Ratio 1.4 RATIO (0.9-2.4); AST(SGOT) 15 U/L (15-37); Alanine Aminotransfer ALT/SGPT 21 U/L (13-56); Alkaline Phosphatase 43 U/L (45-117); Anion Gap 3 (5-15); BUN 9 mg/dL (7-18); BUN/Creat Ratio 10.2 RATIO (10-20); Calcium,Total 8.9 mg/dL (8.5-10.1); Chloride 112 mmol/L (98-107); Creatinine, Serum 0.89 mg/dL (0.55-1.02); EST Glomerular Filtration Rate 81 mL/min (>60); Est Glom Filt Rate - Afr Amer 98 mL/min (>60); Globulin 2.9 g/dL (2.2-4.2); Glucose 84 mg/dL (74-106); Potassium 4.2 mmol/L (3.5-5.1); Protein, Total 6.9 g/dL (6.4-8.2); Sodium Level 139 mmol/L (136-145); Thyroid Stim Hormone (TSH) 1.93 uIU/mL (0.358-3.74)
[2019-03-19 13:55] LABS: Vitamin B12 424 pg/mL (211-911); Vitamin D,25 Hydroxy 20.6 ng/mL (29.95-100.01)
== END | disposition home or self-care (01) ==
LOC: MFPLAB 11:19
PROVIDERS: Family Provider Family Medicine; PCP Family Medicine; Referring Provider Family Medicine; Visit Provider Family Medicine
DX: R53.83 Other fatigue (principal)
CPT/HCPCS: 36415; 80053; 82306; 82607; 84443; 85025

== ENCOUNTER 2019-08-19 23:27 | Emergency (ER) | payer MEDICAID, SELFPAY ==
[2019-08-19 23:28] VITALS: BP 128/73; PULSE 84; RESP 16; TEMP 36.7; O2SAT 100; BMI 30.7
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
--- NOTE | 2019-08-19 23:55 | ED.RN ---
PER DR LEBLANC REQUEST, [facility] CONTACTED TO SPEAK WITH THE PT OVER THE PHONE
[2019-08-20 00:35] VITALS: PULSE 91; RESP 22; O2SAT 97
--- NOTE | 2019-08-20 00:36 | ED.RN ---
THIS NURSE REVIEWED D/C INSTRUCTIONS WITH PT. PT VERBALIZED UNDERSTANDING OF INSTRUCTIONS. PT DENIES FURTHER NEEDS OR QUESTIONS AT THIS TIME. PT AMBULATES FROM ROOM ON OWN WITHOUT ASSISTANCE FROM STAFF
== END 2019-08-20 00:38 | disposition home or self-care (01) ==
PROVIDERS: Emergency Provider Emergency Medicine
DX: F41.9 Anxiety disorder, unspecified (principal); F17.200 Nicotine dependence, unspecified, uncomplicated
CPT/HCPCS: 99282

== ENCOUNTER 2021-01-04 19:23 | Emergency (ER) | payer MEDICAID, SELFPAY ==
[2021-01-04 19:23] VITALS: BP 142/87; PULSE 96; RESP 16; TEMP 36.4; O2SAT 99; BMI 30.7
[2021-01-04 19:35] VITALS: BP 142/87; PULSE 96; RESP 16; TEMP 36.4; O2SAT 99
--- NOTE | 2021-01-04 21:09 | ED.VISSUMM ---
- ER Visit Summary Date of Service: 01/04/21 Chief Complaint: Sore throat History of Present Illness: The patient is a 30 F with a sore throat that she describes as swollen. Associated with a cough and left side neck lumps. Pain with swallowing. Physical Examination: Afebrile and vital signs unremarkable. Oral pharynx is erythematous. No sign of abscess. Good range of motion of her neck. Left anterior cervical lymphadenopathy. The remainder of her HEENT exam and neck exam are unremarkable. Heart regular. Lungs clear. Skin is normal. Test Results: Strep negative. COVID-19 negative. Emergency Department Course and Treatment: Patient has pharyngitis with a negative Covid and a negative strep. She was treated with Decadron. Symptomatic care at home. Follow-up with primary care or return if worse. No sign of abscess or other complication. Treatment Plan: As above Disposition: Discharge Impression: Pharyngitis This note was generated with [employer] dictation software. It may contain incorrect words, spelling, and punctuation that were not noted in review of the chart prior to signing ED Disposition - Plan for ED Patient: Referrals: Care Physician,No Primary [Primary Care Provider] -
--- NOTE | 2021-01-04 21:10 | ED.DEP ---
ED Disposition - Plan for ED Patient: Instructions: ED Pharyngitis, Viral Referrals: Kadi Amanda [NON-STAFF] -
[2021-01-04] MEDS: dexAMETHasone 10 MG/ML Vial PO.IVFORM (21:19)
== END 2021-01-04 21:21 | disposition home or self-care (01) ==
LOC: ED 20:06
PROVIDERS: Emergency Provider Emergency Medicine
DX: J02.9 Acute pharyngitis, unspecified (principal)
CPT/HCPCS: 87426; 87880; 99283

== ENCOUNTER 2021-04-11 21:21 | Emergency (ER) | payer MEDICAID, SELFPAY ==
[2021-04-11 21:22] VITALS: BP 147/90; PULSE 92; RESP 17; TEMP 35.9; O2SAT 98; BMI 30.7
--- NOTE | 2021-04-11 21:30 | ED.VIS.DYS ---
HPI History of Present Illness Chief Complaint: Cold Sx Narrative Narrative: Patient presents with cough, congestion rhinorrhea for the past few days, and today she felt like the congestion moved into her chest. Her son had similar symptoms. She has no fever or chills. She has no chest pain. She has no back pain or tearing sensation. No DVT or PE risk factors. [facility] Medical History (Updated 04/11/21 @ 21:[address] Brayden uGtierrez MD) Adjustment disorder Borderline personality disorder DANA (generalized anxiety disorder) Nicotine dependence, cigarettes, uncomplicated Persistent depressive disorder Home Medications albuterol sulfate [ProAir HFA] 1 inh INHALATION Q6H #6.7 g 04/11/21 [Rx Last Taken Unknown] azithromycin See Rx Instructions .ROUTE .COMPLEX #6 tab 04/11/21 [Rx Last Taken Unknown] Allergy/AdvReac Type Severity Reaction Status Date / Time nickel Allergy Rash Verified 04/11/21 21:24 codeine AdvReac Other Verified 04/11/21 21:24 Social History Smoking Status: Current every day smoker ROS ROS ED ROS Narrative Past medical history: None Medications: Reviewed Social history: Noncontributory Review of systems: All systems negative except as indicated General: No fever Eyes: No visual changes ENT: Upper airway and now lower airway congestion Neck: No neck pain Cardiovascular: No chest pain Respiratory: No shortness of breath or cough Gastrointestinal: No abdominal pain, nausea vomiting or diarrhea Genitourinary: No dysuria Musculoskeletal: Denies myalgias no difficulty with ambulation EXAM Physical Exam Narrative Exam Narrative: Physical exam General: Well nourished, Well developed, No Acute Distress Head: Normocephalic, Atraumatic Eyes: Conjunctiva not pale ENT: Moist mucous membranes. She has rhinorrhea, swollen nasal turbinates and postnasal drip. Neck: Supple, Nontender, No lymphadenopathy Cardiovascular: Regular rate, Regular rhythm Respiratory: No distress, CTA bilaterally, some bronchial breath sounds Abdomen: Soft, Nontender, Nondistended Back: Nontender, Normal Inspection. Negative for: CVA tenderness Extremities: Nontender, No edema Skin: Normal color, No rash Const Vital Signs: 04/11/21 21:22 Temperature 96.6 F L Temperature Source Temporal Pulse Rate 92 Respiratory Rate 17 Blood Pressure 147/90 H Blood Pressure Mean 109 Pulse Ox 98 Oxygen Delivery Method Room Air MDM MDM MDM Narrative Medical decision making narrative: Patient will be given albuterol otherwise I believe she is stable for discharge. She is afraid because she gets bronchitis every year and often she needs antibiotics I told her I will give her prescription but she should wait a few days to see if she improves on her own if not she can start them I believe this is pretty reasonable. Discharge Plan Triage Chief Complaint: Cold Sx ED Provider: Brayden Gutierrez Dx/Rx/DC Orders Clinical Impression: Bronchitis Instructions: ED Bronchitis with Wheezing (Adult) Prescriptions: New azithromycin 250 mg tablet See Rx Instructions .ROUTE .COMPLEX Qty: 6 RF: 0 albuterol sulfate [ProAir HFA] 90 mcg/actuation HFA aerosol inhaler 1 inh inhalation Q6H Qty: 6.7 RF: 0 Primary Care Provider: Care Physician,No Primary Referrals: Care Physician,No Primary [Primary Care Provider] - Disposition Disposition: Home, Self Care
[2021-04-11 21:37] VITALS: BP 147/90; PULSE 92; RESP 17; TEMP 35.9; O2SAT 98
[2021-04-11 21:38] VITALS: O2SAT 99
[2021-04-11] MEDS: Albuterol 2.5 MG/3 ML VIAL.NEB. INHALATION (21:43)
[2021-04-11 21:44] VITALS: PULSE 95; RESP 18
== END 2021-04-11 21:47 | disposition home or self-care (01) ==
LOC: ED 21:40
PROVIDERS: Emergency Provider Emergency Medicine
DX: J40 Bronchitis, not specified as acute or chronic (principal); F17.200 Nicotine dependence, unspecified, uncomplicated
CPT/HCPCS: 94640; 99282

== ENCOUNTER 2021-04-12 00:03 | Emergency (ER) | payer MEDICAID, SELFPAY ==
[2021-04-11 21:22] VITALS: BMI 30.7
[2021-04-12 00:04] VITALS: BP 131/92; PULSE 103; RESP 18; TEMP 37.3; O2SAT 96; BMI 33.3
--- NOTE | 2021-04-12 00:21 | RAD_ITS ---
STUDY: X-RAY CHEST REASON FOR EXAM: Female, 30 years old. Cough TECHNIQUE: PA and lateral views of the chest. COMPARISON: 02/02/2019 FINDINGS: The lungs are clear and expanded. There is no demonstrated pleural abnormality. Normal size heart. Normal mediastinum and marty. Normal visualized pulmonary arteries. Normal visualized aortic arch and descending thoracic aorta. Normal visualized thoracic spine. Normal visualized ribs, clavicles, and shoulders. There is no demonstrated abnormality of the visualized soft tissue structures of the upper abdomen. RAD/Chest PA and Lateral IMPRESSION: Normal x-ray examination of the chest. Electronically Signed: Robb Estrada DO at 0:59 EDT Tel , Service support ,
--- NOTE | 2021-04-12 00:21 | EKG12_ITS ---
Test Reason : SOB Blood Pressure : / mmHG Vent. Rate : 095 BPM Atrial Rate : 095 BPM P-R Int : 154 ms QRS Dur : 084 ms QT Int : 356 ms P-R-T Axes : 059 055 017 degrees QTc Int : 447 ms Normal sinus rhythm Normal ECG Confirmed by TYREE GONZALEZ, JORDAN ([id number]), material expeditor ELLI RING ([id number]) on 04/16/2021 12:57:00 PM Referred By: MR Confirmed By:JORDAN CLEMENTS MD
[2021-04-12] MEDS: Oxymetazoline 0.05% 1 SPRAY SPRAY.BTL 2 SPRAY NASAL (00:35)
[2021-04-12 00:37] VITALS: PULSE 112; RESP 18
[2021-04-12] MEDS: Albuterol 2.5 MG/3 ML VIAL.NEB. INHALATION (00:37)
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
== END 2021-04-12 01:27 | disposition home or self-care (01) ==
PROVIDERS: Emergency Provider Emergency Medicine
DX: J40 Bronchitis, not specified as acute or chronic (principal); F17.210 Nicotine dependence, cigarettes, uncomplicated
CPT/HCPCS: 71046; 93005; 94640; 99284

== ENCOUNTER 2021-06-20 09:00 | Outpatient (RCR) | payer MEDICAID, SELFPAY ==
--- NOTE | 2021-06-20 09:05 | BH.SGPN.GN ---
Behaviors/Verbalizations/Mental Status: Eye contact is good. Motor activity is appropriate. Appearance is casual. Speech is appropriate. Mood is anxious. Affect is congruent. Thoughts are linear and logical. No evidence of psychosis. Reviewed daily check in sheet with no reports of suicidal ideations, plan, or intent. Client Response/Progress/Benefit: Client was engaged and participated in group session. Client reported emotion of the day as ?nervous? due to this being her first day of IOP. Client states being frustrated that she is struggling with her mental health symptoms. Group and clinician provided supportive feedback which client appeared to benefit from. Client reports feeling hopeful about starting and participating in the IOP program. Client stated that she would like to improve mood stabilization and develop a plan for stability upon completion of IOP services. Will continue IOP treatment to stabilize mood as well as reduce rumination and apathy when contributes to depression symptoms. Narrative Note: []
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
[2021-06-20 12:29] VITALS: BP 128/78; PULSE 85
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
--- NOTE | 2021-06-20 13:00 | BH.DR.ITP ---
Initial Treatment Plan Patient Information Visit Information: ADMISSION DATE: EXPECTED LOS: 4-6 weeks Problems/Symptoms Problem #1:: Erratic moods Symptom:: Depression, irritability, apathy, hopelessness, confusion, derealization, lack of motivation, apathy, guilt, decreased concentration, low energy, passive thoughts of Problem #2:: Anxiety Symptom:: Worry, rumination, panic attacks
--- NOTE | 2021-06-21 09:00 | BH.SGPN.GN ---
Behaviors/Verbalizations/Mental Status: []Client alert and oriented, neatly dressed and groomed. Eye contact fair. Motor activity restless. Speech within normal limits. Affect congruent, mood agitated and anxious. Thoughts linear, logical, no signs of hallucinations or delusions. Reviewed client?s symptom tracker, no risk for suicidal ideation, plan, or intent as of 06/21/21 Client Response/Progress/Benefit: []Client responded well to session, attentive and engaged. Client reports feeling agitated and anxious this morning. Client stated she felt very amped up after IOP yesterday and was struggling to focus. Client shared she could not sleep last night, so she did a lot of things around the house and colored her hair. Client reports she is happy with what she has accomplished, but client worries that her emotional dysregulation will negatively impact her son. The group provided support and reminded client of the positive things she is doing that will help her son learn about coping with mental health. Appeared to benefit from challenging negative thoughts and gaining support. Will continue IOP tx to promote mood stability, reduce emotional reactivity, and improve functioning. Narrative Note: []
--- NOTE | 2021-06-21 10:10 | BH.SGPN.GN ---
Behaviors/Verbalizations/Mental Status: []Client alert and oriented, neatly dressed and groomed-changed hair color since yesterday. Eye contact good-furrowed brow at times. Motor activity appropriate. Speech within normal limits. Affect congruent, mood agitated. Thoughts linear, logical, no signs of hallucinations or delusions Client Response/Progress/Benefit: []Client responded well to session, attentive and engaged throughout discussion and activity. The group discussed the benefits of fear such as learning about self and gaining confidence. Client reported when she fails she tells herself ?I?m not capable? and admits to avoiding due to fear of failure. Client shared ?how do you know when to keep working towards a goal vs when to stop.? Client stated she wants to push herself, but also fears putting energy into something that ?I just don?t have the capacity to do.? Client appeared to benefit from gaining awareness of the impact fear of failure can have on one?s mental health and wellbeing. Client did well to challenge perspective during group discussion. Will continue IOP to reduce symptoms, combat distortions, improve emotional regulation skills, and improve daily functioning. Narrative Note: []
--- NOTE | 2021-06-21 11:12 | BH.SGPN.GN ---
Behaviors/Verbalizations/Mental Status: []Client alert and oriented, casually dressed and groomed. Eye contact fair to good. Motor activity appropriate. Speech within normal limits. Affect congruent, mood depressed, apprehensive. Thoughts linear, logical, no signs of hallucinations or delusions. Client Response/Progress/Benefit: []Client responded well to session, engaged in the experiential activity and attentive throughout group processing. Client completed the fear of failure worksheet and reported that fear of failure has kept client from ?maintaining healthy friendships?. Client able to identify thoughts and behaviors that reinforce personal fear of failure which included: past negative experiences, high emotional intensity, avoidance, and fear of abandonment or rejection. Client attentive during discussion of the different strategies to help overcome fear of failure. Identified wanting to work on improving emotion regulation and communication in order to overcome fear of failure. Client new to IOP treatment, though displays good insight into her mental health needs and potential barriers. Client will continue IOP tx to promote healthy distress tolerance and emotion regulation skills, improve mood stability, and reduce use of distorted thinking patterns. Narrative Note: []
--- NOTE | 2021-06-25 09:05 | BH.SGPN.GN ---
Behaviors/Verbalizations/Mental Status: [] Eye contact is good. Motor activity is appropriate. Appearance is casual. Speech is Appropriate. Mood is anxious. Affect is congruent. Thoughts are linear and logical. No evidence of psychosis. Reviewed daily check in sheet and no reports of suicidal ideations or intent. Client Response/Progress/Benefit: [] Pt was an active participant in group discussion. Attentive. Provided appropriate feedback. Emotion for today is anxious. Daily symptom tracker notes 4/5 for anxiety and agitation. Stressor reported to be bad couple of days reporting increased anxiety, poor concentration, and memory issues. She reported a panic attack which occurred while she was shopping. She utilized support to help her through it. [employer] was working through the anxiety. Spent Friday over her mother's house because she wanted to be around people when she started her new medication. She took one pill of Abilify and reported side effects and she does not plan on continuing with the medication. She reports that I'm not giving up but that medication was not for me. Limited progress per pt report. Benefited from group support, encouragment, and feedback. Will continue in IOP to maintain safety, increase healthy coping, and stabilize mood. Narrative Note: []
--- NOTE | 2021-06-25 10:15 | BH.SGPN.GN ---
Behaviors/Verbalizations/Mental Status: []Client alert and oriented, casually dressed and groomed. Eye contact fair. Motor activity appropriate. Speech within normal limits. Affect constricted, mood anxious. Thoughts linear, logical, no signs of hallucinations or delusions Client Response/Progress/Benefit: []Pt was a mostly passive participant AEB pt not providing input during discussions. Attentive during psychoeducation and taking notes. Appeared to connect with topic of personal pitfalls and how they can impede mental health treatment progress. Pt and peers also discussed reasons why overcoming pitfalls is so challenging. During experiential activity pt along with peers identified several pitfalls from the activity that are also associated with mental health. Benefited from group by increasing awareness of pitfalls which can impact mental health. Pt will continue in IOP tx to improve emotion regulation, challenge distorted thoughts and prevent decompensation. Narrative Note: []
--- NOTE | 2021-06-25 15:26 | BH.MTP ---
Master Treatment Plan - Patient Information Program Physician:: Betsy Whitlock Primary Therapist:: Rico Martinez - Psychiatric Diagnoses Psychiatric Diagnoses:: Bipolar, NOS. Generalized anxiety disorder Diagnosis Code(s):: F31.9 - Estimated LOS Estimated LOS (in weeks):: 6 Problem/Goal #1 - Problem/Goal #1 Stated Goal:: Achieve controlled behavior, moderated mood, more deliberative speech and thought process, and a stable daily activity pattern. Client will also increase mood stability, reduce depression, and reduce suicidal thoughts due to Bipolar disorder through the Intensive Outpatient Program AEB reduction in Depression, Luisa, and Dissociation domains on the DSM-IV Cross cutting scale. Description of Barriers: impulsive behaviors, low frustration tolerance, limited support in the area, financial stressors. Functional Impact: Erratic moods have impacted pt's relationships and ability to maintain consistent employment - Objectives Objective #1 Stated Objective: Increase awareness of mood and negative automatic thoughts which impact emotion and behaviors. Interventions: Ask the client to track mood daily as well as keep a daily record of self-defeating thoughts (thoughts of hopelessness, helplessness, worthlessness, catastrophizing, negatively predicting the future); challenging each thought for accuracy, then replace each dysfunctional thought with one that is positive and self-enhancing; review; reward successes; problem-solve obstacles toward positive cognitive change. 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 Target Date: 06/20/21 Review Date: 08/03/21 Problem/Goal #2 - Problem/Goal #2 Stated Goal:: Client will increase emotional regulation and reduce intensity and duration of anxiety symptoms AEB reduction in anxiety domain on the DSM-V cross cutting scale. Description of Barriers: impulsive behaviors, low frustration tolerance, limited support in the area, financial stressors. Functional Impact: Mental health symptoms have impacted pt's ability to maintain consistent employment - Objectives Objective #1 Stated Objective: Client will learn and implement 2-3 calming skills to reduce overall anxiety and manage anxiety Interventions: Through individual and group counseling will help client increase awareness of anxiety triggers and educate client on the ways anxiety impacts overall health. Therapist will teach client various calming and mindfulness strategies to promote emotional regulation and reduction of anxiety. Therapist will encourage client to implement healthy coping skills on a regular basis. Discharge Criteria: Learn and implement 2-3 anxiety coping strategies. Show a reduction on the DSM-V anxiety domain scale. Target Date: 08/03/21 Review Date: 07/20/21
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
--- NOTE | 2021-06-25 15:26 | BH.MDN ---
Multi-Disciplinary Note - Note 60-min Individual Time Started:: 11:00 Date: 06/25/21 Purpose of session/treatment goals addressed:: Reviewed current symptoms and progress in IOP. Used the session to obtain hx and begin working on treatment plan. Eye Contact:: Good Motor Activity:: Appropriate Appearance:: Casual Speech:: Appropriate Mood:: Anxious, Depressed Affect:: Congruent Thoughts:: Linear, Logical, No evidence of hallucinations/delusions noted Staff Interventions:: treatment planning, goal setting Client Response:: Pt reports struggling since last week. Reports significant anxiety attack yesterday while shopping. No specific trigger. Reports becoming overwhelmed leading to difficulty with focus, memory, and concentration. Utilized support to help minimize the panic attack and negative automatic thoughts. Worsening mental health for the past several months which has led to quitting numerous jobs, fleeting SI, and difficulty functioning. Pt states I just want to be normal and stable. Admits to low frustration tolerance which leads to unhealthy coping skills (isolation, running) when stressed. This reaction or impulse most notably impacts relationships and jobs. Pt discussed her struggles with her mother over the weekend and she able to see patterns in her moods. Reports depressive episode over the summer, hypomania currently which in the past lasts till July, which in the past is followed by mixed episodes, and then typically hypomania in November. Pt has insight into her mood and struggles however insight typically occurs after the unhealthy and impulsive actions. Her goal is to decrease emotional dysregulation. She is fearful that she will never be able to report consistent stability which we keep her from having a healthy relationship and stable career. Risks/Concerns:: No risks or concerns noted. Progress Toward Goals/Plan:: No progress noted as she has been in IOP for less than a week. Mental health continues to interfere with daily functioning. She has had a job for the past 3 weeks which is the longest in several years. She was prescribed Abilify by Dr. Barbour last week on 06/20/21 and took it for the first time on Friday night. Reported that it made her feel Stoned and she does not wish to take it anymore. She requests to speak with Dr. Whitlock on Friday to discuss other options. We discussed the benefits to tracking mood and increasing awareness of emotions prior to panic and unhealthy/impulsive decisions. Will continue in [facility] to maintain safety, stabilize mood, and improve functioning. Time Stopped:: 12:05
--- NOTE | 2021-06-27 08:30 | BH.MDN_ITS ---
Multi-Disciplinary Note - Note 30-min Individual Time Started:: 09:12 Date: 06/27/21 Purpose of session/treatment goals addressed:: Pt requested to speak with therapist to address current stressors/racing thoughts impacting her mental health as her regular therapist was meeting with someone else. Eye Contact:: Good Motor Activity:: Appropriate Appearance:: Casual Speech:: Pressured Mood:: Anxious, Depressed Affect:: Full Thoughts:: Linear, Logical, Racing, No evidence of hallucinations/delusions noted Staff Interventions:: thought challenging, motivational interviewing - to acknowledge and normalize resistance to change while also promoting self- efficacy., psychoeducation on: - dialectical thinking, CBT techniques - Challenged cognitive distortions and negative perspective of readmission to IOP tx and attempted to reframe into an opportunity for continued growth. Client Response:: Pt requested to meet with his therapist as she wanted to speak with someone regarding concerns about remaining in the IOP tx program. Pt reports increased anger, sadness, and anxiety for the past several days due to thoughts that she does not really need to be in IOP tx. Discussed conflicting beliefs about return to treatment, noting at times struggling with thoughts of ?I don?t really need to be here?, ?I?m a failure?, or ?I?m overly depending on these counselors and need to figure out how to use my skills on my own?. Other times notes she has thoughts of ?I?m struggling and know I need help to prevent things from getting worse?, ?It?s okay to return to something that helped in the past?, and ?this is a safe place to be vulnerable?. Client open to reviewing the concept of dialectical thinking with therapist and discussed connecting with the idea that two intense emotions and thoughts can both exist at the same time. Went on to vocalize concerns regarding her current mental health symptoms, noting fears that she may be ?splitting? between people. Shared she often overthinks what one person says and then either ?completely latches on? or shuts them out. Receptive of working with therapist to challenge these thoughts and identify strategies for improving in the moment thought challenge skills moving forward. Client connected with the T.H.I.N.K. acronym for thought challenging. Able to calm by end of session and noted plans to return to group. Risks/Concerns:: Denies any suicidal or homicidal ideations, plan, or intent. Future-oriented. Progress Toward Goals/Plan:: Progress remains limited as client has been in IOP for less than a week. Mental health continues to interfere with daily functioning AEB reports of difficulties in maintaining healthy relationships, overthinking impacting decision making skills, and reports of ongoing difficulties with emotion regulation. Client has however done well to seek help when struggling and continues to display insight regarding mental health triggers and stressors. She has successfully continued to maintain a job the past 3 weeks which is the longest in several years. Client does report fears of overworking which she believes may lead to burnout as she has not been prioritizing self-care lately. Will continue in IOP to maintain safety, continue to stabilize mood, and improve functioning. Time Stopped:: 10:00
--- NOTE | 2021-06-27 10:15 | BH.SGPN.GN ---
Behaviors/Verbalizations/Mental Status: [] Eye contact is good. Motor activity is appropriate. Appearance is casual. Speech is Appropriate. Mood is depressed. Affect is flat. Thoughts are linear and logical. No evidence of psychosis. Client Response/Progress/Benefit: [] Pt was an active participant in group discussion and activity. Attentive during psychoeducation on fixed mindset and fixed thinking. Participated with group in experiential activity which initially seemed impossible however worked with peers to come up alternative solutions while practicing the skills at looking at obstacle with growth mindset. Completed worksheet in which pt identified common fixed thoughts she has which included; No one can help me, I can't have a positive relationship, They will leave, I can't handle stress, I need to be perfect. Benefited from increased awareness of fixed thinking. Will continue in IOP to maintain safety, increase healthy coping, and to prevent decompensation. Narrative Note: []
--- NOTE | 2021-06-27 12:38 | PCM.BH.PN_ITS ---
Progress Note Progress Note: History of Present Illness/Interim History: [] The patient is a 31-year-old female who is seen in follow-up at the [facility] behavioral health IOP program. I last saw the patient 1 week ago. The patient states that after starting Abilify 2 mg 1 week ago she only took it 1 time and states that she had felt stoned and got headaches. She refuses to try to get and says that it took several days for the side effect to wear off. 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 The patient requests to go back on Topamax because she feels it is the only medication that she tolerates and it does help her anxiety and stabilize her mood and emotional outbursts. She has still decent sleep but occasional initial insomnia but is getting about 6 to 8 hours a night. She has not used any alcohol in the past week. She admits to having some passive thoughts of but no suicidal ideation. She denies homicidal ideation, hallucinations or delusions also. Current Psychiatric Medications: [] Abilify 2 mg p.o. daily (took 1 dose 6 days ago and then discontinued due to side effects). Mental Status Examination: [] The patient is a 31-year-old female who is seen wearing a mask due to the pandemic and is casually dressed and groomed with good hygiene. Speech is normal rate and rhythm and fluent with no pressure. Eye contact is good. Thought process is goal-directed and organized. Thought content: There is some evidence of passive thoughts of . There is no evidence of suicidal ideation, homicidal ideation, hallucinations or delusions. Judgment is intact. Insight is limited but some present. Impulsivity is high. Diagnoses: [] 1. Borderline personality disorder 2. Bipolar disorder, NOS 3. Generalized anxiety disorder 4. Nicotine dependence 5. Alcohol use disorder 6. Work and financial issues Plan: [] The patient will continue the IOP program at [facility] as the structure, support, education, individual and group therapy will hopefully prevent worsening of the patient's symptoms. She felt safe during the interview and if it anytime she does not feel safe she will let us know or go to the emergency room. The risks, options, possible complications and side effects of the medications were again discussed with the patient and she understands and accepts these. The patient agrees to try to go back on topiramate 50 mg p.o. twice a day. She will start with just 1 p.o. nightly. She will continue to follow-up with her outpatient providers and I will see the patient in follow-up in 2 weeks.
--- NOTE | 2021-06-29 09:05 | BH.SGPN.GN ---
Behaviors/Verbalizations/Mental Status: Eye contact is good. Motor activity is appropriate. Appearance is casual. Speech is appropriate. Mood is anxious. Affect is congruent. Thoughts are linear and logical. No evidence of psychosis. Reviewed daily check in sheet with no reports of suicidal ideations, plan, or intent. Client Response/Progress/Benefit: Client was attentive and engaged throughout group session. Client reported her emotion of the day as anxious. Discussed starting a new job last week, and having thoughts of wanting to quit yesterday, as she felt like her boss was being rude to her which was a stressor. Identified not quitting as a win, she stated in the past in similar situations she would have. She also reported that she was worried that her mother was mad at her. Client identified personalizing this situation and spoke with her mother to clarify, which she also identified as a win. Client indicated per daily symptom tracker moderate depressed mood, moderate-severe anxiety, moderate agitation, and low self-harm urges, which is within client's baseline and denies any suicidal ideations, plan, or intent. Will continue IOP treatment to maintain safety, increase application of healthy coping skills, and stabilize mood. Narrative Note: []
--- NOTE | 2021-06-29 10:13 | BH.SGPN.GN ---
Behaviors/Verbalizations/Mental Status: []Client alert and oriented, casually dressed and groomed. Eye contact good. Motor activity appropriate. Speech within normal limits. Affect congruent, mood dysthymic. Thoughts linear, logical, no signs of hallucinations or delusions. Client Response/Progress/Benefit: [] Client active participant AEB providing contributions during group discussion, taking notes, and appeared to listen attentively to peers. Client connected with the topic of relationships. Helped group discuss the benefits of relationships as well as the potential factors maintaining unhealthy relationships. Client stated that having a healthy relationship with her best friend has helped her to feel unconditionally loved and supported. Noting that she has struggled to maintain healthy relationships in other areas of her life due to past negative experiences. Sharing ?I paint flags red that aren?t because I?ve been hurt in the past. Instead of talking I make up the story in my own head and emotionally react based off of that?. Explaining that this has resulted in sabotaging potential healthy relationships in the past. Helped group identify the risk factors for unhealthy relationships which included: poor self-esteem, trauma, loneliness, learned behaviors, and not taking care of own mental health. Worked with group to develop a list of the consequences that unhealthy relationships have on mental health. Appeared to benefit from increasing awareness of the impact unhealthy relationships can have on mental health. Pt to continue IOP to maintain mood stability, improve healthy coping in times of emotional distress, and reduce reactivity. Narrative Note: []
--- NOTE | 2021-06-29 11:15 | BH.SGPN.GN ---
Behaviors/Verbalizations/Mental Status: []Client alert and oriented, casually dressed and groomed. Eye contact good. Motor activity appropriate. Speech within normal limits. Affect constricted, mood euthymic. Thoughts linear, logical, no signs of hallucinations or delusions. Client Response/Progress/Benefit: []Client responded well to session, engaged and taking notes. Attentive during psychoeducation about characteristics of healthy, unhealthy and abusive relationships. Pt identified within her relationships she does well with being honest. client stated she wants to work on improving her communication by being more open about her thoughts and feelings instead of stuffing emotions. Appeared to benefit from brainstorming strategies to build healthier relationships. Will continue IOP tx to reduce negative thoughts, improve emotion regulation and prevent decompensation. Narrative Note: []
--- NOTE | 2021-07-02 09:05 | BH.SGPN.GN ---
Behaviors/Verbalizations/Mental Status: [] Eye contact is good. Motor activity is appropriate. Appearance is neat. Speech is Appropriate. Mood is anxious. Affect is congruent. Thoughts are linear and logical. No evidence of psychosis. Reviewed daily check in sheet and no reports of suicidal ideations or intent. Client Response/Progress/Benefit: [] Pt was an active participant in group discussion. Attentive. Provided appropriate feedback. Emotion for today is positive. Shared with the group stressors over the weekend which involved her work. Talked at length regarding her thoughts and emotions which impacted her actions. She had an impulse to quit her job as she has done in the past when presented with stress or conflict, however instead utilized healthy communication skills and frustration tolerance skills. She was proud of herself for not quitting like she has done so often. It actually worked out well. She continues to struggle with medications noting that she experienced side effects and stopped taking the Topamax. Benefited from group support, encouragement, and feedback. Progress noted. Will continue in IOP to maintain safety, increase healthy coping, and improve functioning. Narrative Note: []
--- NOTE | 2021-07-02 10:15 | BH.SGPN.GN ---
Behaviors/Verbalizations/Mental Status: []Client alert and oriented, casually. Eye contact good. Motor activity appropriate. Speech within normal limits. Affect congruent, mood euthymic. Thoughts linear, logical, no signs of hallucinations or delusions. Client Response/Progress/Benefit: []Client responded well to session AEB client participating in group discussion and listening attentively to others. Attentive to group discussion about benefits to resilience which included: helps reach goals, improve mood, increase confidence, able to bounce back for future stressors, and decrease anxiety. Client stated once she has faced something difficult it becomes easier to do again. Group was primarily education based, with client participating in small group discussion regarding traits that promote resilience. Client attentive to large group discussion. Client appeared to benefit from psychoeducation. Will continue IOP treatment to improve confidence, decrease negative thinking and prevent decompensation.
--- NOTE | 2021-07-02 11:16 | BH.SGPN.GN ---
Behaviors/Verbalizations/Mental Status: []Client alert and oriented, casual dress, hygiene tended to. Eye contact good. Motor activity appropriate. Speech within normal limits. Affect congruent, mood euthymic. Thoughts linear, logical, no signs of hallucinations or delusions. Client Response/Progress/Benefit: []Client responded well to session AEB contributing to discussion and completing the resilience worksheet provided. Client participated in the discussion of how each resiliency component can help increase personal resiliency and worked cooperatively with group to identify strategies to enhance each of the components discussed. Actively providing personal examples throughout. Client reported feeling she is doing well with implementing the resilience component of ?self-awareness?, indicating she has made much progress in doing so over the past few years, though continues to struggle with using healthy skills when recognizing warning signs. Went on to reflect wanting to improve personal resilience in the area of ?avoid seeing crises as insurmountable problems? Client stated she would like to continue working on challenging her use of catastrophizing and instead try to slow down and take things moment by moment. Client seemed to benefit from discussing strategies for improving personal resilience and establishing a small goal in order to begin doing so. Will continue IOP to improve consistency of skill application, increase healthy distress tolerance skills, and prevent decompensation. Narrative Note: []
--- NOTE | 2021-07-04 14:33 | BH.MDN ---
Multi-Disciplinary Note - Note 60-min Individual Time Started:: 14:30 Date: 07/04/21 Purpose of session/treatment goals addressed:: Reviewed current symptoms. Risk assessment. Eye Contact:: Good Motor Activity:: Appropriate Appearance:: Casual Speech:: Appropriate Mood:: Anxious, Depressed Affect:: Congruent Thoughts:: Linear, Logical, No evidence of hallucinations/delusions noted Staff Interventions:: thought challenging, psychoeducation on: - Mood tracker, CBT techniques, completed risk assessment / safety planning Client Response:: Pt states I've been struggling. Shared that she had suicidal ideations with thoughts about methods (pills) on 06/29/21. Reports that night she was ruminating on past relationships and believed she was the result of them failing. I've hurt all these people. Also ruminating on a romantic interest rejecting her. She was able to utilize skills and support to help her through her suicidal ideations. Over the weekend she reports not doing healthy things as she went to the bar with friends and utilize unhealthy support. Identified that she had brief thoughts of suicide on 07/02/21 however not plan or intent stated she snapped out of it quick What am I doing. Utilized skills once again. She was prescribed Topamax last week and took it once and didn't like it. Hopeless that any medication will help. She talked at length about her struggles with emotional regulation and being over dramatic. She responded well to discussion on tracking mood and thoughts. Risks/Concerns:: Denies active suicidal ideations, plan, or intent. Protective factors include her son. Future-oriented. No access to guns. Plan to bring her medications back into this therapist to dispose of. Does not present as imminent danger due to no active SI, plan, or intent. Contracts for safety. She did utilize skills and support when she was suicidal last week. She is aware of crisis numbers and ER. Progress Toward Goals/Plan:: Limited progress. Pt reports increased feelings of hopelessness related to mood management. No specific trigger noted. Ruminating on relationships and her past failures. Worked with therapist to develop a mood tracker system where she will track her emotion, thoughts, and situations on an hourly basis. Plan is to introduce skills on a more consistent basis and to work on challenging cognitive distortions (catastrophizing, absolute thinking, etc). Will continue in IOP to maintain safety, increase health coping, and prevent decompensation. Will increase individual counseling sessions.
--- NOTE | 2021-07-05 09:00 | BH.SGPN.GN ---
Behaviors/Verbalizations/Mental Status: [] Eye contact is good. Motor activity is appropriate. Appearance is casual. Speech is Appropriate. Mood is anxious. Affect is congruent. Thoughts are linear and logical. No evidence of psychosis. Reviewed daily check in sheet and reports 1.5/5 for suicidal thought and .5/5 for intent. Client Response/Progress/Benefit: [] Pt was an active participant in group discussion. Attentive. Emotion for today is overwhelmed. Daily symptom tracker notes 3/5 for depression and 4/5 for anxiety. Mental health win was that she complete that commissioned piece of art which she was proud of. Shared that she has been getting overwhelmed when she is alone however I worked through it. She has begun to track her mood and thoughts which is new to her however is starting to see some benefits. Progress noted. Benefited from group support, encouragement, and feedback. Will continue in IOP to maintain safety, increase healthy coping, and stablize mood. Narrative Note: []
--- NOTE | 2021-07-05 10:12 | BH.SGPN.GN ---
Behaviors/Verbalizations/Mental Status: []Eye contact is good. Motor activity is appropriate. Appearance is casual. Speech is Appropriate. Mood is euthymic. Affect is congruent. Thoughts are linear and logical. No evidence of psychosis. Client Response/Progress/Benefit: []Pt was an active participant in group discussions. Attentive and provided insights during psychoeducation on benefits and disadvantages of anxiety and review of different types of Anxiety Disorders (Social Anxiety, DANA, OCD, PTSD, and Separation Anxiety). Completed worksheet on identifying own physical symptoms or signs of anxiety which pt reported numerous however identified most frequent as: uncontrollable crying, uneasy stomach, and urgency to flee. Benefited from increased awareness of physiological signs of anxiety as well as differences between 'normal' anxiety and anxiety disorder. Will continue in IOP to stabilize moods, improve emotion regulation, and prevent decompensation. Narrative Note: []
--- NOTE | 2021-07-05 11:10 | BH.SGPN.GN ---
Behaviors/Verbalizations/Mental Status: []Client alert and oriented, neatly dressed and groomed. Eye contact good. Motor activity restless. Speech within normal limits. Affect congruent, mood anxious. Thoughts linear, logical, no signs of hallucinations or delusions. Client Response/Progress/Benefit: []Client was an active participant in group discussion and providing good insight to peers. Reviewed safety behaviors she engages in that reinforce anxiety. Some of client?s safety behaviors include avoidance and smoking cigarettes. Attentive during psychoeducation on mindfulness coping skills and their impact on mental health wellness. The group worked together to brainstorm anxiety reduction strategies. Client selected journaling and using a mood tracker as the mindfulness skill client will practice for the next three days. Client seemed to benefit from increased repertoire of anxiety reduction skills. Client will continue IOP tx to improve emotional regulation skills and increase impulse control skills. Narrative Note: []
--- NOTE | 2021-07-05 14:54 | BH.MDN_ITS ---
Multi-Disciplinary Note - Note 45-min Individual Time Started:: 12:15 Date: 07/05/21 Purpose of session/treatment goals addressed:: Reviewed current symptoms and progress in IOP. Reviewed mood tracker from last evening. Eye Contact:: Good Motor Activity:: Appropriate Appearance:: Casual Speech:: Appropriate Mood:: Depressed Affect:: Flat Thoughts:: Linear, Logical, No evidence of hallucinations/delusions noted Staff Interventions:: thought challenging, motivational interviewing, CBT techniques Client Response:: Pt did start her mood tracking last evening. She wrote down her emotions hourly, her thoughts, and situation that triggered her emotion and thoughts. Triggering event last evening of dropping off her son which led to several cognitive distortions and negative automatic thoughts that she is a bad mother and there is no hope for her. This did indeed lead to suicidal thoughts. Denies that she had any plan or intent. She utilized skills to distract which was helpful as she moved to completing a portrait that she was working on. Had the urge to escape and numb her emotions by going to the bar to drink however did not follow through with these impulsive thoughts. She paced and smoked cigarettes while reporting again cognitive distortions. Eventually was able to work through these and get to sleep. This morning and throughout IOP her mood stabilized and her thoughts were less negative and more hopeful. She was able to identify some patterns in her thoughts as well as triggers (dropping off son). Identified that her emotions don't just parker in but gradually worsen based on escalating thoughts which is significant realization as pt has stated numerous times in the past that her emotions are instant, intense, and uncontrollable. Discussed briefly plan to identify distortions and attempt to challenge. Risks/Concerns:: No risks of concerns noted. Denies active SI, plan, or intent. Had brief suicidal ideations with no plan or intent last evening. Did utilize internal and external skills to manage thoughts. Protective factors. Future- oriented. Does not present as imminent danger to herself. She did give her medications to therapist this AM to dispose of. No access to firearms. Aware of crisis numbers and agrees to call her mother or other support if SI occurs. Progress Toward Goals/Plan:: Progress noted as she has begun to track mood and gain awareness that she can identify her thoughts and mood before crisis level. Able to identify triggering situation last evening rather than former belief that it just happens. Motivated to make changes. She is benefiting from IOP as support and skills (per mood tracker) are improved while here. Struggles with significant cognitive distortions and negative automatic thoughts. In the past with increase distress has impulse to numb or ran away. She has done well to combat those impulsive thoughts in recent weeks with some success. Has remained with current job for 3 weeks which is more than any job in the past year. Consistently attending IOP. Currently not taking any medication due to reported side effects. Plan is to continue in IOP to maintain safety, increase healthy coping, and prevent decompensation. Time Stopped:: 13:00
== END 2021-07-05 23:59 ==
LOC: BHIOP 09:00
PROVIDERS: Referring Provider Psychiatry & Neurology Psychiatry; Visit Provider Psychiatry & Neurology Psychiatry
DX: F60.3 Borderline personality disorder (principal); F31.9 Bipolar disorder, unspecified; F41.1 Generalized anxiety disorder; F17.210 Nicotine dependence, cigarettes, uncomplicated; Z79.899 Other long term (current) drug therapy
CPT/HCPCS: 90792; 99213; H2012; H2020; S9480; T1002; 90834; 90837

== ENCOUNTER 2021-07-06 09:00 | Outpatient (RCR) | payer MEDICAID, SELFPAY ==
[2021-07-06 00:38] VITALS: BP 128/78; PULSE 85
--- NOTE | 2021-07-06 09:03 | BH.SGPN.GN ---
Behaviors/Verbalizations/Mental Status: []Client alert and oriented, casually dressed and groomed. Eye contact good. Motor activity appropriate. Speech within normal limits. Affect congruent, mood anxious, overwhelmed. Thoughts linear, logical, no signs of hallucinations or delusions. Reviewed client?s symptom tracker, suicidal ideation reported as 0.5/5 which is consistent to baseline, denies any plan, or intent as of 07/06/21. Future oriented Client Response/Progress/Benefit: []Client responded well to session, attentive, appearing to connect to fellow participants, and providing supportive feedback throughout. Client reports feeling fragile this morning and discussed she believes this is due to taking steps to begin addressing her mental health again. Shared that working on her mental health often leads to feelings of vulnerability, which fellow participants discussed relating to. Shared trying to find healthy ways to cope with boredom as being bored has led to unhealthy decision making in the past. Identified painting has really helped her with this and indicates plans to work on a new project this week. Additionally, noted beginning a mood tracker which she shared as helpful but has also led to overthinking. Did well to identify skills to prevent from unnecessarily ascribing meaning to changes in emotions. Continues to struggle with poor boundaries, emotion regulation, and self-esteem. Will continue IOP tx to prevent decompensation, improve ability to practice self-care, improve emotion regulation, and continue to promote healthy communication skills. Narrative Note: []
--- NOTE | 2021-07-06 10:10 | BH.SGPN.GN ---
Behaviors/Verbalizations/Mental Status: []Client alert and oriented, neatly dressed and groomed. Eye contact good. Motor activity appropriate. Speech within normal limits. Affect congruent, mood anxious and euthymic. Thoughts linear, logical, no signs of hallucinations or delusions. Client Response/Progress/Benefit: []Pt was an active participant in group discussion. Attentive during psychoeducation on communication styles. Along with peers pt participated in providing insight into the benefits to effective communication on mental health which included; helps us get needs met, resolves problems, improves relationships, establishes expectations, decreases stress, and to express emotions. Pt along with peers able to identify ways that communication can be misinterpreted and provided an example of miscommunication through texting. Pt shared she often misinterprets people?s facial expressions and ?I end of thinking people hate me.? Pt recognizes this is a distortion, but it is still hard to challenge pt reports. Benefited from increased awareness of different communication styles and the importance of communicating effectively to improve mental wellness. Will continue IOP tx to replace and combat distorted thinking patterns and increase distress tolerance skills. Narrative Note: []
--- NOTE | 2021-07-06 11:10 | BH.SGPN.GN ---
Behaviors/Verbalizations/Mental Status:Eye contact is good. Motor activity is appropriate. Appearance is casual. Speech is Appropriate. Mood is euthymic. Affect is constricted. Thoughts are linear and logical. No evidence of psychosis. Behaviors/Verbalizations/Mental Status: [] Pt was a active participant in group discussion. Attentive during psychoeducation on communication styles (Passive, Passive-Aggressive, Aggressive, and Assertive) and benefits/disadvantages to each style. Along with peers pt participated in providing insight into the benefits to effective communication on mental health. Pt along with peers able to identify ways that communication can be misinterpreted through tone, texting, body language and assumptions. Pt identified her most frequently used communication style as passive. Reported being passive has negatively impacted her mental health because led to increased isolation. Reported she wants to work on asserting needs as a way to improve communication. Benefited from increased awareness of different communication styles and the importance of communicating effectively to improve mental wellness. Will continue in IOP to improve emotion regulation, continue use of heatlhy coping, and prevent decompensation.
--- NOTE | 2021-07-06 13:54 | BH.COMM ---
Communication Note - Communication with Client Communication Note: Met with pt for less than 15 minutes to review emotion management and safety plan discussed yesterday. Denies any active SI, plan, or intent. Looking forward to the weekend as she is spending it with her son and her mother. Going to a local fair. Reviewed plan with patient.
--- NOTE | 2021-07-09 09:05 | BH.SGPN.GN ---
Behaviors/Verbalizations/Mental Status: [] Eye contact is good. Motor activity is appropriate. Appearance is casual. Speech is Appropriate. Mood is anxious. Affect is congruent. Thoughts are linear and logical. No evidence of psychosis. Reviewed daily check in sheet and no reports of suicidal ideations or intent. Client Response/Progress/Benefit: [] Pt was an active participant in group discussion. Attentive. Provided appropriate feedback. Daily symptom tracker notes 11/10 for depression. Shared struggles over the weekend stating It was a bad weekend. Admits to catastrophizing and absolute thinking. Insight that she is focusing on things that she wants and feels that she can never have instead of taking things day by day. Mood and thought tracking. Reports that a positive trigger helped her see her progress. She noticed that she has been at her job for 4 weeks which is the longest she has had in 3 years. Shared was this is a big win for her and how it means progress. Group discussion on impulsive to isolate or quit when presented with obstacles or fear of failure. I would rather quit than get fired. This thinking has impacted her jobs and even relationships. She is working through this thought rather than impulsively giving in. While she is tracking thoughts and mood admits that she is not utilizing skills when feels moderate distress which I should. Progress noted. Benefited from group support, encouragement, and feedback. Will continue in IOP to maintain safety, increase healthy coping, and to stabilize mood. Narrative Note: []
--- NOTE | 2021-07-09 10:15 | BH.SGPN.GN ---
Behaviors/Verbalizations/Mental Status: []Client alert and oriented, neatly dressed and groomed. Eye contact good. Motor activity appropriate. Speech within normal limits. Affect congruent, mood euthymic. Thoughts linear, logical, no signs of hallucinations or delusions. Client Response/Progress/Benefit: []Pt was well engaged in group AEB taking notes, providing input, and listening attentively throughout. Attentive during psychoeducation and discussed the importance of goal-setting with the group. Pt also reported ?if you give yourself credit every day you?ll probably achieve more.? Group identified potential benefits of having goals include: they motivate, build self-confidence, give a sense of accomplishment, and provide a sense of purpose. Group also worked together to identify barriers to goal-setting which included; negative self-talk, lack of motivation, unrealistic expectations, and all or nothing thinking. Benefited from increased awareness of benefits and barriers to goal-setting. Will continue IOP tx increase self-awareness, improve distress tolerance skills, and reduce negative thinking patterns. Narrative Note: []
--- NOTE | 2021-07-09 11:16 | BH.SGPN.GN ---
Behaviors/Verbalizations/Mental Status: []Client alert and oriented, casually dressed and groomed. Eye contact good. Motor activity appropriate. Speech within normal limits. Affect congruent, mood euthymic, anxious. Thoughts linear, logical, no signs of hallucinations or delusions. Client Response/Progress/Benefit: []Pt was an active participant in group discussions and challenge activity. Engaged as group worked to create an example SMART goal as well as identify resources for overcoming barriers to achieving the identified goal. Pt identified a SMART goal for the next week as ?Track my mood at least 4x per day over the next week?. Reported this would help improve self-awareness, challenge negative thoughts, and better manage her moods. Identified lack of motivation as a barrier. Pt reported she can overcome that barrier by using her therapist as a support for accountability. Benefited from group by being able to utilize SMART educate to create a goal. Pt to continue IOP to increase self-confidence, continue to promote mood management, and prevent decompensation. Narrative Note: []
--- NOTE | 2021-07-11 09:05 | BH.SGPN.GN ---
Behaviors/Verbalizations/Mental Status: Eye contact is good. Motor activity is appropriate. Appearance is casual. Speech is appropriate. Mood is euthymic. Affect is congruent. Thoughts are linear and logical. No evidence of psychosis. Reviewed daily symptom tracker sheet with no reports of suicidal ideations, plan, or intent. Client Response/Progress/Benefit: Client was attentive and engaged throughout group session, providing insight to others. Client reported her emotion of the day as ?tired,? stating that she is feeling depression in her body, which she finds ?annoying.? Client discussed having difficulty balancing being there for her friends and managing her depression symptoms. Client identified all or nothing thinking in relationships, but struggled to identify coping skills used. Client indicates per daily symptom tracker that her mood has been generally the same, reporting low-moderate anxiety and moderate-severe depressed mood. Will continue IOP treatment to improve mood stability, and increase depression management skills. Narrative Note: []
--- NOTE | 2021-07-11 11:15 | BH.SGPN.GN ---
Behaviors/Verbalizations/Mental Status: []Client alert and oriented, neatly dressed and groomed. Eye contact good. Motor activity appropriate. Speech within normal limits. Affect congruent, mood agitated. Thoughts linear, logical, no signs of hallucinations or delusions. Client Response/Progress/Benefit: []Client responded well to session, contributing during discussion and receptive to supportive feedback. Client identified a negative thought that has kept her stuck. Client's thought was I will definitely fail.? Client reported when she thinks this way, she gives up easily, does not start projects, or does not try when she could succeed. Client worked to reframe the thought by finding more rational, realistic ways to look at the thoughts and then processed within group setting. Client reframed the thought to ?I might fail, but I also might succeed. I?m far more likely to succeed if I try.? Client stated she will use dialectical thinking to continue challenging negative self-talk. Client appeared to benefit from practicing challenging negative thinking. Client will continue IOP tx to increase distress tolerance skills and improve daily functioning. Narrative Note: []
--- NOTE | 2021-07-11 11:30 | BH.MDN_ITS ---
Multi-Disciplinary Note - Note 60-min Individual Time Started:: 10:10 Date: 07/11/21 Purpose of session/treatment goals addressed:: Reviewed current symptoms and progress in IOP. Eye Contact:: Good Motor Activity:: Appropriate Appearance:: Casual Speech:: Appropriate Mood:: Anxious, Depressed Affect:: Congruent Thoughts:: Linear, Logical, No evidence of hallucinations/delusions noted Staff Interventions:: thought challenging, motivational interviewing, CBT techniques, taught coping skills Client Response:: Pt states I was heavily depressed over the weekend. Stated several times that she had high emotions. Admits that she did not track her mood or thoughts however was able to identify that the common thoughts revolved around I can't be helped ... Therapy is too hard for me to do. States that she wanted to quit IOP because she was predicting that it wouldn't work. Identified several other cognitive distortions. She utilized support and eventually did reframe and challenge her automatic thoughts which helped her realize that she has made significant progress. Therapist pointed out that despite high emotions she had shown the ability to manage her behaviors and impulse control by not blowing up her job and relationships despite having the urge too. She is seeing the benefits of this impulse control. She is reframing thoughts however usually this occurs a day after the distress. Goal is to use th rachael during or better yet prior too significant emotional distress. We developed a strategy for this. Risks/Concerns:: Denies active suicidal ideations, plan, or intent. Future- oriented. Protective factors are child and parents. She reports that while she gets heavily depressed if SI occurs it is not as bad as it has been in the past. Progress Toward Goals/Plan:: Pt is making slow progress but through mood and thought tracking she is gaining insight that her emotions don't just occur for no reason and are impacted by her thoughts and occur gradually. Improved impulse control and decision making. Consistent and engaged in IOP. Psychiatrist has made several recommendations for medications which pt has refused or taken and stopped due to side effects. Plan is to continue in IOP to maintain safety, increase healthy coping, and prevent decompensation. Time Stopped:: 11:15
--- NOTE | 2021-07-13 09:05 | BH.SGPN.GN ---
Behaviors/Verbalizations/Mental Status: []Eye contact is good. Motor activity is appropriate. Appearance is casual. Speech is appropriate. Mood is euthymic. Affect is congruent. Thoughts are linear and logical. No evidence of psychosis. Reviewed symptom tracker sheet with no reports of suicidal ideations, plan, or intent. Client Response/Progress/Benefit: []Client was attentive and engaged throughout group session, providing insights to others. Client reported her emotion of the day as ?optimistic,? and highlighted wins of being at her job for 1 month, and talking through a problem with her best friend. Noted in the moment this had been a stressor, but ultimately is a positive as she would have avoided communicating in the past. Client also discussed her strategy of typing out a text but not sending it, and instead revisiting it the next day to see if she still feels the same way. Appeared to benefit from supportive group discussion and reflecting on her wins. Client indicates per daily symptom tracker that her mood has generally been better, and reports a decrease in depression symptoms from previous session. Will continue IOP treatment to prevent decompensation, continue to promote mood stability, and improve application of healthy coping skills. Narrative Note: []
--- NOTE | 2021-07-13 10:12 | BH.SGPN.GN ---
Behaviors/Verbalizations/Mental Status: []Client alert and oriented, casually dressed and groomed. Eye contact good. Motor activity appropriate. Speech within normal limits. Affect congruent, mood anxious, euthymic. Thoughts linear, logical, no signs of hallucinations or delusions. Client Response/Progress/Benefit: [] Client engaged in session AEB taking notes, contributing to discussion, and providing examples throughout. Client shared connecting with the importance of setting boundaries and noted ?I like the correlation of setting boundaries as loving yourself. We often focus on the fear of disappointing others and not loving ourselves?. Client shared the example of not speaking to a friend who continued to give her unsolicited advise even after client had asked him to stop. Shared this was necessary in order to protect her own intellectual boundaries. Client assisted group with identifying benefits of setting boundaries such as improved relationships, reduced anxiety, increased sense of self-respect, and feeling validated. Expressed ?If we set boundaries we will prevent lashing out or becoming bitter latter?. Listened during psychoeducation on different types of boundaries. Client seemed to benefit from increased awareness of how boundaries impact mental health and the different types of boundaries there are. Will continue IOP tx promote gains, continue to improve healthy boundaries with self and others, as well as improve self-care and use of emotion regulation skills.? Narrative Note: []
--- NOTE | 2021-07-13 11:03 | BH.SGPN.GN ---
Behaviors/Verbalizations/Mental Status: []Client alert and oriented, neatly dressed and groomed. Eye contact good. Motor activity appropriate. Speech within normal limits. Affect constricted, mood anxious and euthymic. Thoughts linear, logical, no signs of hallucinations or delusions. Client Response/Progress/Benefit: []Client responded well to session AEB listening attentively to peers and providing input. Client engaged in the boundary self-assessment and was attentive during psychoeducation on the different boundary styles. Noted her boundary setting style depends on ?my mood and where I?m at mentally.? Client reports she is striving to have more flexible boundaries and to not push people away or over-share. Client was given a handout on strategies for healthy boundary setting. Client identified wanting to work on asking herself what consequences come with saying ?yes.? Progress noted in client?s ability to maintain employment for an extended period of time. Will continue IOP tx to improve mood stability, reduce negative thinking, and improve distress tolerance skills. Narrative Note: []
--- NOTE | 2021-07-17 09:05 | BH.SGPN.GN ---
Behaviors/Verbalizations/Mental Status: [] Eye contact is good. Motor activity is appropriate. Appearance is neat. Speech is Appropriate. Mood is depressed. Affect is full. Thoughts are linear and logical. No evidence of psychosis. Reviewed daily check in sheet and no reports of suicidal ideations or intent. Client Response/Progress/Benefit: [] Pt was an active participant in group discussion. Attentive. Provided appropriate feedback. Emotion for today is tired. Reports that she is feeling burned out due to working 4 days in a row. Daily symptom tracker notes 2/5 for depression. Reports low energy. Shared that she called off IOP yesterday as a from of self-care and boundary setting. States that if she pushed herself when overwhelmed and tired it would not have benefited her mental health. Mental health win included talking with support. Progress noted per pt report. Benefited from group support, encouragement, and feedback. Will continue In IOP to maintain safety, stabilize mood, and increase healthy coping. Narrative Note: []
--- NOTE | 2021-07-17 10:10 | BH.SGPN.GN ---
Behaviors/Verbalizations/Mental Status: []Client alert and oriented, neatly dressed and groomed. Eye contact good. Motor activity appropriate. Speech within normal limits. Affect congruent, mood euthymic. Thoughts linear, logical, no signs of hallucinations or delusions. Client Response/Progress/Benefit: []Pt providing feedback during discussion and attentive during psychoeducation. Took notes as peers identified obstacles or barriers that hinder our ability to communicate our emotions effectively, especially in stressful situations. Group identified the following obstacles; not knowing how to express self, distorted thought patterns, personalizing, and physical discomfort. Pt provided insight on how emotion and mood can impact effective communication. Pt took an active role during activity and reported that feeling physically uncomfortable when anxious or depressed is often a barrier to being able to manage her emotions and communicating in stressful situations. Benefited from increased awareness on how our emotions impact our communication. Will continue in IOP to promote emotional regulation skills, maintain gains, and further increase impulse control. Narrative Note: []
--- NOTE | 2021-07-17 11:14 | BH.SGPN.GN ---
Behaviors/Verbalizations/Mental Status: []Client alert and oriented, casually dressed and groomed. Eye contact good. Motor activity appropriate. Speech within normal limits. Affect congruent, mood euthymic. Thoughts linear, logical, no signs of hallucinations or delusions. Client Response/Progress/Benefit: []Client engaged in session AEB client listening attentively to peers, asking questions, and providing input throughout. Worked with group to process the activity completed in previous session and identify skills used to better manage emotions experienced throughout. Reflected that reminding herself to slow down and be patient helped with improving her emotion regulation in the moment. Attentive during psychoeducation on 4 zones of regulation. Client able to identify feelings and behaviors for each zone. Client identified that her ?green zone? means she is feeling more neutral, calm, and clear-minded. Shared when in the ?green zone? she often hangs out with others more, paints, and more consistent in completing regular responsibilities. Able to identify specific coping skills she can use to support self in each zone which included: opposite action and keep consistent with her regular routine, meditation, make and work towards goals, as well as develop a crisis management plan. Benefited from increased education on zones of regulation or stages of alertness for emotions and healthy coping skills to use for each zone. Continues to struggle significantly with emotion regulation in moments of increased distress or discomfort. Will continue IOP tx to further improve mood stability, reduce negative and distorted thinking, improve healthy decision making, and improve daily functioning. Narrative Note: []
--- NOTE | 2021-07-17 14:13 | BH.MDN ---
Multi-Disciplinary Note - Note 45-min Individual Time Started:: 12:15 Date: 07/17/21 Purpose of session/treatment goals addressed:: Reviewed current symptoms and progress in IOP. Addressed treatment plan goals 1 and 2. Eye Contact:: Good Motor Activity:: Appropriate Appearance:: Casual Speech:: Appropriate Mood:: Depressed Affect:: Full Thoughts:: Linear, Logical, No evidence of hallucinations/delusions noted Staff Interventions:: thought challenging, motivational interviewing, CBT techniques, strengths perspective, goal setting Client Response:: Pt reports that she continues to feel more stable and chill. Believes that her thoughts are more clear leading to improved thinking and concentration. She missed IOP yesterday and feels compelled to explain that she worked for 4 days straight and needed yesterday for self-care and to work on responsibilities. Self-care as she does not want to overwhelm herself. Overall improved mood in the past week. Managing stressors and automatic thoughts. Increased awareness of moods and increased confidence that she can manage her emotions. She has not tracked her moods or thoughts as consistently in the past week as she is doing better. Discussion on how this is best time to work on skills. She is agreeable to make a high emotions binder in which she will develop and write down affirmations, develop strategies (internal/external) to utilize if she decompensates, and again track moods. Insight that she is less impulsive with better decision-making. Risks/Concerns:: No risks or concerns noted. Progress Toward Goals/Plan:: Progress noted per pt report. Improved insight. Improved DSM-5 outcomes scored which will be further discussed in treatment plan review. Improved impulse control. Utilizing skills. Inconsistent follow-through with assigned tasks as she still has not completed emotional management plan or consistently tracked her thoughts and mood. Will continue in IOP to prevent decompensation, increase healthy coping, and improve functioning. Time Stopped:: 13:00
--- NOTE | 2021-07-18 12:19 | BH.MTP_ITS ---
Treatment Plan Review Date of Admission:: 06/20/21 Date of Treatment Plan Review:: 07/18/21 Patient's Response to Treatment:: Pt has been consistent and engaged in IOP. Appears motivated to make changes. Completed DSM5 cross-cutting scales which show an overall 40% reduction in symptoms since admission. Shows a 16% reduction in the depression domain, 33% reduction in anger domain, 55% reduction in anxiety domain, and a 50% reduction in dissociation. The ange and suicidal thoughts domains stayed the same. Status of Current Problems and Symptoms: Pt continues to verbalize depression, anxiety, and erratic moods which impact her functioning and decision-making. Continues to report fleeting suicidal thoughts and emotional dysregulation. Ruminating on past choices and hopeless about her future. Problem #1 Problem Name:: Erratic Mood Status of Goals:: Obj 1- Per outcomes pt has shown improved mood stability with decrease in depression, anger, and dissociation domains. The ange domain has remained stable and not decompensated. She has begun to track mood and self- defeating thoughts however has not been consistent. Team Recommendations:: Continue to encourage mood and thought tracking. Continue in IOP to prevent decompensation, stabilize mood, and increase healthy coping. Problem #2 Problem Name:: Anxiety Status of Goals:: Obj1- According to measurement outcomes pt has shown a 55% reduction on the anxiety domain. She is able to list several calming skills to help manage anxiety however struggles to utilize these skills when in crisis. Team Recommendations:: Encourage pt to practice skills when not in crisis. Continue in IOP to gain more insight into anxiety and calming skills.
--- NOTE | 2021-07-19 09:05 | BH.SGPN.GN ---
Behaviors/Verbalizations/Mental Status: [] Eye contact is good. Motor activity is appropriate. Appearance is neat. Speech is Appropriate. Mood is depressed. Affect is flat. Thoughts are linear and logical. No evidence of psychosis. Reviewed daily check in sheet and no reports of suicidal ideations or intent. Client Response/Progress/Benefit: [] Pt was an active participant in group discussion. Attentive. Emotion for today is low. Shared with the group that she had a panic attacks a couple days ago. The panic attacks was associated with driving. States that she has been on edge since with increased overall anxiety. Group normalized her response to the situation and praised her for getting back in her car that night and the next day to continue with work. Limited progress per pt report. Benefited from group feedback and support. Will continue in IOP to maintain safety, increase healthy coping, and stablize mood. Narrative Note: []
--- NOTE | 2021-07-19 10:16 | BH.SGPN.GN ---
Behaviors/Verbalizations/Mental Status: []Client alert and oriented, neatly dressed and groomed. Eye contact good. Motor activity appropriate. Speech within normal limits. Affect constricted, mood tired. Thoughts linear, logical, no signs of hallucinations or delusions. Client Response/Progress/Benefit: []Pt was an active participant AEB pt participating in activity, taking notes, and contributing to discussion. Pt worked with group to identify benefits of effective problem solving. Listened during psychoeducation about ABCDE problem solving method. Worked with group to identify barriers to effective problem solving which included: irrational thinking, impatience, indecisiveness, not having skills, feeling overwhelmed, and difficult emotions. Pt reported problems ?make you feel some type of way, so it makes it hard to solve them.? Pt seemed to benefit from increased awareness of strategies to help solve a problem. Pt will continue IOP tx to increase distress tolerance skills, further improve work-related functioning, and improve impulse control skills. Narrative Note: []
--- NOTE | 2021-07-19 11:13 | BH.SGPN.GN ---
Behaviors/Verbalizations/Mental Status: []Eye contact is good. Motor activity is appropriate. Appearance is casual. Speech is Appropriate. Mood is dysthymic, anxious. Affect is congruent. Thoughts are linear and logical. No evidence of psychosis. Client Response/Progress/Benefit: []Pt responded well to session as evidenced by contributing during challenge activity, taking notes, and providing input when prompted throughout. Processed how strategies used for problem solving in activity can be applied to daily life. Pt completed problem solving worksheet and identified the problem she wants to work on as ?speak more kindly to myself?. Pt identified skills she can utilize to work on this problem include: improve awareness of current self-talk, find alternative statements or affirmations to tell herself, read the affirmations, begin saying the affirmations out loud to herself regularly. Discussed that working to solve this problem will aid in improving self-esteem, promote healthy thinking patterns, and reduce negative self-talk. Pt seemed to benefit from identifying strategies to problem solve through a problem currently impacting mental health. Recommended continued tx to further improve consistent healthy coping and self-care, continue to promote healthy boundaries with self, and further improve mood management skills. Narrative Note: []
--- NOTE | 2021-07-24 09:05 | BH.SGPN.GN ---
Behaviors/Verbalizations/Mental Status: [] Eye contact is good. Motor activity is appropriate. Appearance is disheveled. Speech is Appropriate. Mood is depressed. Affect is flat. Thoughts are linear and logical. No evidence of psychosis. Reviewed daily check in sheet and no reports of suicidal ideations or intent. Client Response/Progress/Benefit: [] Pt was an active participant in group discussion. Attentive. Provided appropriate feedback. Emotion for today is sad. Mental health wins included trying to make good decisions. Shared that she has been sad for the past several days and discussed triggers and stressors with the group. Group provided feedback and support which was beneficial. Her emotions are up and down. Struggling to function on a daily basis due to her mental health. Will continue in IOP to maintain safety and prevent decompensation. Narrative Note: []
--- NOTE | 2021-07-24 11:15 | BH.SGPN.GN ---
Behaviors/Verbalizations/Mental Status: []Client alert and oriented, casually dressed and groomed. Eye contact good. Motor activity appropriate. Speech within normal limits. Affect constricted, mood depressed. Thoughts linear, logical, no signs of hallucinations or delusions Client Response/Progress/Benefit: []Client receptive of session, engaged throughout AEB client actively listening and contributing to discussion, as well as taking notes. Client completed worksheet identifying personal pitfalls impacting mental health progress. Client identified the following pitfalls: unrealistic expectations of self, emotional reactivity, and disqualifying the positives. Group learned different coping skills to help manage pitfalls. Client selected disqualifying the positives as the pitfall client wants to overcome. Client plans to work on this by asking a support person to hold her accountable and through affirmations. Benefited from identifying personal pitfalls and strategies to overcome these pitfalls. Client noted personal progress in her increased self-acceptance of the things I don't like about myself. Will continue IOP tx to further increase emotional regulation and distress tolerance skills. Narrative Note: []
--- NOTE | 2021-07-24 13:42 | BH.MDN ---
Multi-Disciplinary Note - Note 45-min Individual Time Started:: 10:15 Date: 07/24/21 Purpose of session/treatment goals addressed:: Review current symptoms and progress in IOP. Eye Contact:: Good Motor Activity:: Appropriate Appearance:: Disheveled Speech:: Appropriate Mood:: Depressed Affect:: Flat Thoughts:: Linear, Logical, No evidence of hallucinations/delusions noted Staff Interventions:: thought challenging Client Response:: Pt reports increased sadness over the past 5 days due in large part to her son's behavioral issues and struggles at school which she blames partly on herself. States that her child is 9 and he is beginning to better understand her mental health struggles often telling pt I just want you to be happy. The father of the child has full custody of him and child sees pt once during the week and every other weekend. Since moving back to [place] 6 months ago pt admits that she has struggled with stability and maintaining employment. She also hates living alone. She states I'm best when I'm living with my parents. States she is more stable, feels more confident, has less struggles with finances, and overall functions better. I just like being around people and not alone. She talked at length regarding this decision and we challenged stigma associated with adults living with their parents which is biggest obstacle for patient. Parents are agreeable with this and pt has spoken with child's father and he is agreeable as well. All parties feel this is most beneficial. Pt is sad b/c this would mean less time with son and also feels that she failed at independent living. Praised for her ability to make tough decisions for the benefit of herself and her child. Risks/Concerns:: Denies SI, plan, or intent Progress Toward Goals/Plan:: Progress noted. Improved decision-making. Less impulsive. Accepting limitations and understanding that she functions best with consistent support around her. Pt struggles significantly with independent living due in large part with her mental health which interferes with her ability to maintain employment and complete familial responsibilities. Inability to maintain employment has also led to significant financial stress further exacerbating her mental health. Pt has made significant attempts over the past several years to maintain employment however erratic mood, impulsivity, severe depressive episodes, and hypomanic/manic episodes often interfere. Plan to is remain in IOP to prevent decompensation. She will need to continue with consistent treatment and support after IOP. Time Stopped:: 11:00
--- NOTE | 2021-07-25 12:37 | PCM.BH.PN_ITS ---
Progress Note Progress Note: History of Present Illness/Interim History: [] The patient is a 31-year-old female who is seen in follow-up at the [facility] behavioral health IOP program. I last saw the patient 3 weeks ago and the patient states that since that time she feels her depression has worsened in the past few weeks. She discontinued the Topamax that she requested to go back on after taking it for a few days. She discontinued it on July 01, 2021. She felt that it did not help her like it did the last time she was on it and it made it so she was too drowsy to drive. The patient admits that she often has side effects on medications but she wishes to try medication to help with her bipolar mood swings and depression currently. She denies any alcohol use. She moved back in with her parents recently as she felt that it would help her recover her mental health. She admits to some passive thoughts of but denies any suicidal ideation, homicidal ideation, hallucinations or delusions. Current Psychiatric Medications: [] Topiramate 50 mg p.o. nightly (discontinued after 4 days on July 01, 2021) Mental Status Examination: [] Patient is a 31-year-old female who is seen wearing a mask due to the pandemic and is casually dressed and groomed with good hygiene. She has no psychomotor agitation or retardation. Eye contact is good and speech is normal rate and rhythm and fluent with no pressure. Thought process is goal-directed and organized. Thought content: There is some evidence of passive thoughts of . There is no evidence of suicidal ideation, homicidal ideation, hallucinations or delusions. Judgment is intact. Insight is improving. Impulsivity is high. Diagnoses: [] 1. Borderline personality disorder 2. Bipolar disorder, NOS 3. Generalized anxiety disorder 4. Nicotine dependence 5. Alcohol use disorder 6. Work and financial issues Plan: [] The patient will continue the IOP program at [facility] as the structure, support, education, and group therapy will hopefully prevent worsening of the patient's symptoms. She felt safe during the interview and if it anytime she does not feel safe she will let us know or go to the emergency room. The risks, options, possible complications and side effects of the medications were again discussed with the patient and she understands and accepts these. The patient states that she feels she is allergic to lithium because she has so many side effects on it. She took Depakote in the past and it made her feel too out of it and she refuses Depakote also for the teratogenic risks should she become . The patient agrees to try resulting 0.5 mg for 7 days and then increase to 1 mg p.o. daily. She is given this prescription for 30 days with no refills. I will see the patient in follow-up in 2 weeks. She will continue to follow-up with her outpatient providers also.
--- NOTE | 2021-07-27 09:05 | BH.SGPN.GN ---
Behaviors/Verbalizations/Mental Status: Eye contact is good. Motor activity is appropriate. Appearance is casual. Speech is appropriate. Mood is sad. Affect is flat. Thoughts are linear and logical. No evidence of psychosis. Reviewed daily symptom tracker sheet with no reports of suicidal ideations, plan, or intent. Client Response/Progress/Benefit: Client was engaged and attentive throughout group session. Client identified her emotion of the day as ?grateful? and ?sad.? Client stated that she will be moving in with her parents, which means she will see her son less. Client appeared to benefit from discussion regarding situation being temporary, and the good that comes when you can focus on yourself. Client stated that she called off work yesterday, but is celebrating being at her current job for 6 weeks, which is progress as previously client only kept a job for 2 weeks. Client indicated per daily symptom tracker that her mood and ability to function has been generally the same. Will continue IOP treatment to increase mood stability to increase independent functioning, and prevent self-sabotage. Narrative Note: []
--- NOTE | 2021-07-27 10:10 | BH.SGPN.GN ---
Behaviors/Verbalizations/Mental Status: []Eye contact is good. Motor activity is appropriate. Appearance is casual. Speech is Appropriate. Mood is dysthymic and irritable. Affect is constricted. Thoughts are linear and logical. No evidence of psychosis Client Response/Progress/Benefit: []Pt was an active participant in group discussion. Attentive during psychoeducation on Conflict Styles ( Avoidant, Competing, Accommodating, and Collaborating). Participated in interactive group discussion on benefits of conflict.? Pt along with peers identified several reasons conflict is often avoided which included; not wanting to hurt others, high emotions, wanting short-term relief, and lack of awareness. Pt believes the conflict style she most often uses are collaborating and avoiding. Pt reports using collaborating at work and for co-parenting, but pt avoids her siblings. Pt shared avoidance has led to feeling more depressed. Benefited from increased awareness on conflict styles. Will continue in IOP to prevent self-sabotaging behaviors, increase distress tolerance skills, and improve mood stability. Narrative Note: []
--- NOTE | 2021-07-27 11:17 | BH.SGPN.GN ---
Behaviors/Verbalizations/Mental Status: []Client alert and oriented, casually dressed and groomed. Eye contact good. Motor activity appropriate. Speech within normal limits. Affect congruent, mood agitated, depressed. Thoughts linear, logical, no signs of hallucinations or delusions. Client Response/Progress/Benefit: []Client engaged in session AEB contributing to discussion and engaging in activity. Client did well to review conflict styles and the various impacts of each on mental health. Acknowledged the impact being accommodating on not getting own needs met and later feeling resentful. Client participated in activity and client was actively listening to peers? suggestions at times. Client wants to work on asking herself ?What specifically is bothering me? What do I want the other person to do or not do? Are my feelings in proportion to the issue??. Shared this could help with rational decision making when it comes to communication in times of conflict. Appeared to benefit from gaining strategies to help client better manage conflict. Will continue IOP tx to increase emotional regulation skills, reduce isolative behaviors, and improve overall functioning. Narrative Note: []
--- NOTE | 2021-07-31 09:05 | BH.SGPN.GN ---
Behaviors/Verbalizations/Mental Status: [] Eye contact is good. Motor activity is appropriate. Appearance is disheveled. Speech is Appropriate. Mood is euthymic. Affect is full. Thoughts are linear and logical. No evidence of psychosis. Reviewed daily check in sheet and no reports of suicidal ideations or intent. Client Response/Progress/Benefit: [] Pt was an active participant in group discussion. Attentive. Provided appropriate feedback. Daily symptom tracker notes 10/10 for depression, anxiety, and irritability. Emotion for today is chillin. Mental health win is that she has been taking her medications as prescribed. She is hopeful as she has noticed some benefits such as increase motivation, energy, and concentration. I think they are helping. Shared her struggles with medication side effects in the past stating I'm trying to be optimistic. She has noticed some troubles with sleep since starting the medications and is hoping to discuss this with psychiatry this week. Another positive is that she is going to move in with support next week which she believes will provided consistent support. Also has been employed for 7 weeks. Progress noted per pt report. Benefited from group support, encouragement, and feedback. Will continue in IOP to maintain safety, prevent decompensation, and stablize mood. Narrative Note: []
--- NOTE | 2021-07-31 11:18 | BH.SGPN.GN ---
Behaviors/Verbalizations/Mental Status: []Client alert and oriented, casually dressed and groomed. Eye contact fair to good. Motor activity appropriate. Speech within normal limits. Affect congruent, mood dysthymic. Thoughts linear, logical, no signs of hallucinations or delusions. Client Response/Progress/Benefit: []Client remained an active participant throughout AEB contributing to discussion and taking notes throughout. Client participated in the group activity highlighting the various barriers to effectively utilizing supports and strategies for improving support. Participated in discussion of the 5 ways our supports can support us (emotional, tangible, affirmational, network/belonging, and instructional) and the group listed examples for all types. Client reports wanting to work on increasing appraisal supports, noting this will help her stay aware of ?what I?m doing well in and what I need to continue to work on or if I?m becoming more manic/depressed?. Client plans to do this by communicating with her mother regularly as she has asked her to alert her when she recognizes changes in client mood or areas of progress. Client seemed to benefit from identifying the type of support and how this support will aid in promoting overall mental wellness. Will continue with IOP tx to promote healthy communication with supports, self-care, improve mood stability, and prevent decompensation. Narrative Note: []
--- NOTE | 2021-07-31 14:29 | BH.MDN ---
Multi-Disciplinary Note - Note 45-min Individual Time Started:: 10:30 Date: 07/31/21 Purpose of session/treatment goals addressed:: Reviewed DSM outcomes and aftercare planning. Eye Contact:: Good Motor Activity:: Appropriate Appearance:: Casual Speech:: Appropriate Mood:: Euthymic Affect:: Full Thoughts:: Linear, Logical, No evidence of hallucinations/delusions noted Staff Interventions:: discharge planning, reviewed DSM-5 Client Response:: Pt reports that she has taken new medication for 5 days and believes that it is helping with her depression. Reports increased motivation, energy, and focus. She does report side effect of poor sleep and did read an online article which caused her some concerns for future side effects. Plan to meet with psychiatrist tomorrow. Praised for her willing to try new medication. She will monitor her mood to ensure that she does not get to high'. We reviewed her 4 week DSM scores which show a modest improvement which she was encouraged to hear. We both agree that despite intensive treatment she continues to struggle with daily mood management and would benefit from support from parents. Struggles with assignment of daily mood tracking as well. She shared that the plan is for her to move out of town to live with parents next week. [facility] get [facility] up with therapist and psychiatry. She also has a PCP in her [facility] town to help with medication management if needed. Risks/Concerns:: no risks or concerns noted. Progress Toward Goals/Plan:: Completed DSM5 cross-cutting scales at 4 week petar which show an overall 40% reduction in symptoms since admission. Shows a 16% reduction in the depression domain, 33% reduction in anger domain, 55% reduction in anxiety domain, and a 50% reduction in dissociation. The ange and suicidal thoughts domains stayed the same. Pt has worked hard to prevent decompensation, decrease impulsivity, and even maintained a job for 7 weeks. Overall modest improvement while in IOP. She does best with consistent support and being around others. Without consistent support she decompensates and struggles to function independently. Continues to have erratic moods and rapid cycling which interfere with social, familial, and work responsibilities. Due to pt moving out of town the plan is to discharge patient this week. Time Stopped:: 11:10
--- NOTE | 2021-08-01 12:20 | PCM.BH.PN ---
Progress Note Progress Note: History of Present Illness/Interim History: [] The patient is a 31-year-old female who is seen in follow-up at the [facility] behavioral health IOP program. I last saw the patient 1 week ago and at that time the patient was started on Rexulti 0.5 mg p.o nightly. The patient is tolerating the medication well although she feels it may be giving her mild initial insomnia. She also wakes up sometimes during the night but is able to get back to sleep. She is getting 6 to 8 hours total of sleep. She states that it is only been a few days but she feels that she is improving on the resulting. Patient feels that her mood is becoming more stable and fluctuating less. She feels she is not depressed currently and denies any symptoms of ange. She denies any thoughts of , suicidal ideation, homicidal ideation, hallucinations or delusions. The patient denies any use of alcohol in the last few weeks. Current Psychiatric Medications: [] Rexulti 0.5 mg p.o. nightly (x4 days now) Mental Status Examination: [] The patient is a 31-year-old female who is seen wearing a mask due to the pandemic and is casually dressed and groomed with good hygiene. She has no psychomotor agitation or retardation. Eye contact is good and speech is normal rate and rhythm and fluent with no pressure. Thought process is goal-directed and organized. Thought content: There is no evidence of thoughts of , suicidal ideation, homicidal ideation, hallucinations or delusions. The patient remains preoccupied that she often has side effects on medications. Judgment is intact. Insight is improving. Impulsivity is high. Diagnoses: [] 1. Borderline personality disorder 2. Bipolar disorder, NOS 3. Generalized anxiety disorder 4. Nicotine dependence 5. Alcohol use disorder 6. Work and financial issues Plan: [] The patient will continue the IOP program at [facility] as the structure, support, education and group therapy will hopefully prevent her symptoms from worsening. She felt safe during the interview and if it anytime she does not feel safe she will let us know or go to the emergency room. The risks, options, possible complications and side effects of the medications were again discussed with the patient and she understands and accepts these. The patient will possibly be discharged soon if she continues to do well in the IOP program and she plans to move out of town to live with her parents to improve her support. She will continue to follow-up with her outpatient providers. The patient agrees to change her resulted to morning to see if it helps with her initial insomnia. In addition she is given a prescription for trazodone 50 mg, 1-2 p.o. at bedtime as needed for sleep.
--- NOTE | 2021-08-03 09:02 | BH.SGPN.GN ---
Behaviors/Verbalizations/Mental Status: []Eye contact is good. Motor activity is appropriate. Appearance is casual. Speech is appropriate. Mood is anxious. Affect is congruent. Thoughts are linear and logical. No evidence of psychosis. Reviewed daily symptom tracker sheet with no reports of suicidal ideations, plan, or intent. Client Response/Progress/Benefit: []Client was attentive and engaged throughout group session. Client reported her emotion of the day as ?happy?, as today is her last day of IOP. Client provided insight to others, and participated in group discussion. Client discussed stressor of moving in with her parents next week, but was able to identify the benefits of this change. Appeared to benefit from supportive group environment. Progress noted AEB client?s report of accepting her situation and improved use of coping skills. Client indicated per daily symptom tracker that her mood and ability to function has been generally better, and indicates a decrease in depression from previous session. Will discharge from IOP today as client has met tx goals and no longer meets criteria for IOP level of care. Narrative Note: []
--- NOTE | 2021-08-03 10:00 | BH.SGPN.GN ---
Behaviors/Verbalizations/Mental Status: []Client alert and oriented, neatly dressed and groomed. Eye contact good. Motor activity appropriate. Speech within normal limits. Affect congruent, mood euthymic. Thoughts linear, logical, no signs of hallucinations or delusions. Client Response/Progress/Benefit: []Pt was an active participant in group discussion and activity. Attentive during psychoeducation on the stages of change. Pt participated in interactive discussion on emotions associated with change (guilty, anxious, sadness, hopeful, confident, exhausted, etc). Pt along with peers identified barriers that may prevent one from making change which included; fear of the unknown, feeling overwhelmed, and self-doubt. Pt gave a personal example of a time that a positive change overwhelmed her so much that pt self-sabotaged. Benefited from increased awareness of emotions related to change, the change process, and benefits/barriers to change. Will discharge from IOP tx today as client has accomplished tx goals and no longer meets criteria for IOP level of care. Narrative Note: []
--- NOTE | 2021-08-03 13:32 | BH.DS_ITS ---
Discharge Summary - Demographics Date of Admission:: 06/20/21 Discharge Date: 08/03/21 Presenting Problems at Admission:: Pt is a 31 y/o F with a MDD, DANA, and Borderline PD. Hx of 4 previous psychiatric admissions with most recent to [facility] in 2019. Pt has reported hx of Bipolar as well however has not been on any medications for over 2 years. Self-referred to [facility]. Pt completed [facility] IOP in 03/2019 and reports moderate stability until 6 months ago when she moved out of her parent's house and back to the [facility] to be closer to her child. Pt reports worsening depression, erratic moods, passive thoughts of , and mental health symptoms interfering with her ability to maintain employment. Pt stated during pre-admission screening I'm either anxious, ramped up or can't get out of bed. Endorses no motivation, anhedonia, apathy, isolation, erratic energy, feelings of worthlessness/hopelessness. Pt reports that she has quit 10 jobs within the past 6 months. Often does not last more than 2 weeks at a job. Denies active suicidal ideations, plan, or intent. Denies HI or psychosis. She does report dissociation at times when overwhelmed emotionally. Discharge Diagnoses:: Diagnosis #1:: Bipolar, NOs F31.9. Diagnosis #2:: Borderline PD. Diagnosis #3:: Generalized Anxiety Disorder Reason for Discharge:: Pt is moving in with support out of town. - Treatment Progress During Treatment & Response: Pt attended IOP consistently and was engaged in treatment. Struggled with home assignments. Reviewed discharge outcomes measurement with pt which does indicate an overall symptom reduction of 52%.Outcomes also noted a 67% reduction in the depression, anger, and anxiety domains. Denies any suicidal ideations in the past 2 weeks. Has maintained emp loyment for 7 weeks. Recently started a new medication with initial benefits however needs to be monitored long-term to determine if this will help with mood stability. Stable mood in the past week however mood was erratic throughout IOP and as mentioned before she struggles to show consistent stability which interferes with social, familial, and occupational functioning. Patient also has had several medication trials with little to no benefits due to side effects. IOP managed to prevent significant decompensation. Issues Still to be Addressed:: erratic mood, fleeting SI, medication compliance, psycho social stressors, impulsivity. Discharge Recommendations/Instructions:: Recommended to follow up with counseling and psychiatry. Pt is currently lined with [facility]. She has scheduled appointment with therapist in upcoming 2 weeks. She is waiting to hear back regarding her initial appointment with psychiatrist. She as sures this therapist that she will set up an appointment with her PCP when she moves out of town. Discharge Handout: Complete Discharge Handout with client on aftercare options and continuity of care.
--- NOTE | 2021-08-03 13:32 | BH.MDN ---
Multi-Disciplinary Note - Note 30-min Individual Time Started:: 11:15 Date: 08/03/21 Purpose of session/treatment goals addressed:: Reviewed aftercare plan and progress in IOP Eye Contact:: Good Motor Activity:: Appropriate Appearance:: Casual Speech:: Appropriate Mood:: Euthymic Affect:: Full Thoughts:: Linear, Logical, No evidence of hallucinations/delusions noted Staff Interventions:: discharge planning, reviewed DSM-5 Client Response:: Pt reports that she is doing well. Excited about moving in with parents next week and has several events lined up for Halloween this weekend. Her sleep continues to be decreased however she has not started the Trazadone prescribed on 08/01/21 as she wants to wait till she is home with parents in case something goes wrong. Reviewed discharge outcomes measurement with pt which does indicate an overall symptom reduction of 52%. Pt is already linked with therapist and psychiatry at [facility], however she is waiting to hear back regarding her first initial psych visit. She assures me that she does have a PCP in her parent's hometown and will make appointment once she returns. Risks/Concerns:: no risks or concerns noted Progress Toward Goals/Plan:: Progress noted. Plan is to discharge from [facility] today as pt is planning to move back in with her parents out of town next week. Recently started a new medication with initial benefits however needs to be monitored long-term to determine if this will help with mood stability. Stable mood in the past week however mood was erratic throughout IOP and as mentioned before she struggles to show consistent stability which interferes with social, familial, and occupational functioning. Patient also has had several medication trials with little to no benefits due to side effects. Time Stopped:: 11:45
== END 2021-08-03 13:06 | disposition home or self-care (01) ==
LOC: BHIOP 09:00
PROVIDERS: Referring Provider Psychiatry & Neurology Psychiatry; Visit Provider Psychiatry & Neurology Psychiatry
DX: F31.9 Bipolar disorder, unspecified (principal); F60.3 Borderline personality disorder; F41.1 Generalized anxiety disorder
CPT/HCPCS: 99213; H2012; H2020; S9480; 90832; 90834; 90837

== ENCOUNTER 2021-09-06 21:51 | Emergency (ER) | payer MEDICAID, SELFPAY ==
[2021-09-06 21:53] VITALS: BP 122/83; PULSE 113; RESP 18; TEMP 36.3; O2SAT 98; BMI 33.6
[2021-09-06] MEDS: dexAMETHasone 10 MG/ML Vial PO.IVFORM (23:08)
--- NOTE | 2021-09-07 00:03 | EDS_ITS ---
HPI History of Present Illness Chief Complaint: Sore Throat Narrative Narrative: Pt reports 2-3 days of sore throat. She reports she was tested for Covid the other day and was negative. She has concern for strep based on her symptoms and therefore presents for evaluation [facility] Medical History (Updated 09/07/21 @ 00:[address] Eulogio Oconnell, DO) Adjustment disorder Alcohol use disorder Bipolar disorder, unspecified Borderline personality disorder DANA (generalized anxiety disorder) Nicotine dependence, cigarettes, uncomplicated Persistent depressive disorder Home Medications multivitamin with minerals 1 cap PO DAILY 30 Days #30 cap 06/27/21 [Rx Last Taken Unknown] brexpiprazole [Rexulti] 0.5 mg PO DAILY 30 Days #53 tab 07/25/21 [Rx Last Taken Unknown] trazodone 50 mg PO DAILY 30 Days #30 tab 08/01/21 [Rx Last Taken Unknown] lidocaine HCl [Lidocaine Viscous] 15 ml MUCOUS MEMBRANE Q6H PRN 5 Days #300 ml 09/07/21 [Rx Last Taken Unknown] prednisone 40 mg PO DAILY 5 Days #10 tab 09/07/21 [Rx Last Taken Unknown] Allergy/AdvReac Type Severity Reaction Status Date / Time nickel Allergy Rash Verified 09/06/21 21:54 codeine AdvReac Other Verified 09/06/21 21:54 Social History Smoking Status: Current every day smoker tobacco type: cigarettes ROS ROS ED Constitutional Constitutional ED: Denies chills or fever(s) ENT ENT ED: Reports rhinorrhea and sore throat Cardiovascular Cardiovascular: Denies chest pain Respiratory/Chest Respiratory/Chest: Denies cough or dyspnea Gastrointestinal Gastrointestinal: Reports nausea; Denies abdominal pain, diarrhea or vomiting Genitourinary Genitourinary ED: Denies dysuria Musculoskeletal Musculoskeletal: Denies myalgias or neck pain Integumentary Denies rash Neurologic Neurologic: Denies headache(s) EXAM Physical Exam Const Vital Signs: 09/06/21 21:53 Temperature 97.3 F L Temperature Source Temporal Pulse Rate 113 H Respiratory Rate 18 Blood Pressure 122/83 H Blood Pressure Mean 96 Pulse Ox 98 Oxygen Delivery Method Room Air Positive well nourished and well developed General Appearance ED: well developed HEENT Reports moist mucous membranes HEENT Narrative: + tonsillar hypertrophy with erythema and exudates. No trismus, change in voice, difficulty with secretions, or airway compromise noted Eyes PERRL and EOMs intact bilaterally Neck supple Neck Narrative: + anterior cervical adenopathy Resp normal respiratory effort and clear to auscultation bilaterally Cardio regular rate and regular rhythm Extremity normal to inspection Neuro oriented x3 and CN's II-XII intact bilaterally Sensorium / Orientation: alert Psych mental status grossly normal Skin no rashes or lesions noted MDM MDM MDM Narrative Medical decision making narrative: Pt presented afebrile without physical exam findings to suggest abscess or mono. Therefore, I felt only need for rapid strep test. Test was negative indicating a viral pharyngitis and as patient has no airway compromise can be discharged home Discharge Plan Triage Chief Complaint: Sore Throat ED Provider: Eulogio Oconnell Dx/Rx/DC Orders Clinical Impression: Pharyngitis Instructions: ED Pharyngitis, Viral Prescriptions: New prednisone 20 mg tablet 40 mg PO DAILY 5 Days Qty: 10 RF: 0 lidocaine HCl [Lidocaine Viscous] 2 % solution 15 ml mucous membrane Q6H PRN (Reason: pain) 5 Days Qty: 300 RF: 0 No Action multivitamin with minerals Capsule 1 cap PO DAILY 30 Days Qty: 30 RF: 2 Rexulti 0.5 mg tablet 0.5 mg PO DAILY 30 Days Qty: 53 RF: 0 trazodone 50 mg tablet 50 mg PO DAILY 30 Days Qty: 30 RF: 0 Primary Care Provider: Care Physician,No Primary Referrals: Maureen Ricardo MD [STAFF PHYSICIAN] - 3-5 Days if not improving Care Physician,No Primary [Primary Care Provider] - Disposition Disposition: Home, Self Care Discharge Date/Time: 09/07/21 00:14
== END 2021-09-07 00:14 | disposition home or self-care (01) ==
PROVIDERS: Emergency Provider Emergency Medicine
DX: J02.9 Acute pharyngitis, unspecified (principal); F31.9 Bipolar disorder, unspecified; F41.1 Generalized anxiety disorder; Z79.899 Other long term (current) drug therapy; F17.210 Nicotine dependence, cigarettes, uncomplicated
CPT/HCPCS: 87880; 99283

== ENCOUNTER 2021-09-18 19:07 | Emergency (ER) | payer MEDICAID, SELFPAY ==
[2021-09-18 19:08] VITALS: BP 119/81; PULSE 103; RESP 18; TEMP 36.4; O2SAT 100; BMI 33.4
--- NOTE | 2021-09-18 19:12 | EKG12_ITS ---
Test Reason : CP Blood Pressure : / mmHG Vent. Rate : 100 BPM Atrial Rate : 100 BPM P-R Int : 152 ms QRS Dur : 088 ms QT Int : 332 ms P-R-T Axes : 112 131 145 degrees QTc Int : 428 ms Suspect arm lead reversal, interpretation assumes no reversal Normal sinus rhythm Nonspecific T wave abnormality Abnormal ECG When compared with ECG of 12-APR-2021 00:41, QRS axis Shifted right T wave inversion now evident in Lateral leads Confirmed by TYREE GONZALEZ, JORDAN ([id number]), editor trade journal ELLI RING ([id number]) on 10/02/2021 1:40:24 PM Referred By: TL Confirmed By:JORDAN CLEMENTS MD
--- NOTE | 2021-09-18 19:40 | ED.RN ---
PT REPORTS SHE IS FEELING BETTER AND IS GOING TO LEAVE. LWBS AT 1940.
== END 2021-09-18 19:40 | disposition left against medical advice (07) ==
LOC: ED 19:45
DX: R07.9 Chest pain, unspecified (principal); Z53.21 Procedure and treatment not carried out due to patient leaving prior to being seen by health care provider
CPT/HCPCS: 93005

== ENCOUNTER 2021-12-16 14:46 | Emergency (ER) | payer MEDICAID, SELFPAY ==
[2021-12-16 14:47] VITALS: BP 117/86; PULSE 94; RESP 18; TEMP 36.6; O2SAT 95; BMI 31.6
--- NOTE | 2021-12-16 15:32 | EDS_ITS ---
HPI HPI - URI History of Present Illness Chief Complaint: Cough Detail of Chief Complaint: Cough Informant: patient Narrative Narrative: Patient presents the emergency department with a cough. Patient states that she did develop a head cold like illness 5 days ago. Patient developed a cough. She took a home Covid test yesterday that was negative. Patient has had the COVID vaccine. She denies any exposures to COVID or sick contacts. Patient states that she often will get bronchitis. Patient denies any chest pain or significant shortness of breath. Prior similar symptoms: Yes ROS ROS ED Constitutional Constitutional ED: Reports systems reviewed and no addt'l complaints, except as documented; Denies body ache(s), change in weight or chills Eyes Eyes: Denies acute decrease in peripheral vision, change in vision, double vision or loss of vision ENT ENT ED: Reports none; Denies ear pain, lip swelling, loss taste/smell, neck pain, otalgia or sore throat Cardiovascular Cardiovascular: Reports none; Denies abdominal pain, chest pain with activity, leg edema, lightheadedness, palpitations, rapid heart rate or syncope Respiratory/Chest Respiratory/Chest: Reports none, cough and sputum; Denies change in mental status, dry cough, dyspnea, hemoptysis, shortness of breath at rest or shortness of breath with exertion Gastrointestinal Gastrointestinal: Reports none; Denies abdominal pain, change in stool character, diarrhea, hematemesis, hematochezia, melena, rectal bleeding or vomiting Genitourinary Genitourinary ED: Reports none; Denies abdominal discomfort, anuria, dysuria, genital pain or polyuria Musculoskeletal Musculoskeletal: Reports none; Denies arthralgias, back pain, difficulty walking, extremity pain, muscle weakness or myalgias Integumentary Reports none; Denies abscess or rash Neurologic Neurologic: Reports none; Denies abnormal gait, confusion, focal weakness, frequent falls, headache(s), loss of vision, numbness, paresthesias, radicular pain, vertigo or weakness Psychiatric Psychiatric: Reports systems reviewed and no addt'l complaints, except as documented and none; Denies behavioral changes, confusion, difficulty concentrating, hallucinations, suicidal ideation, tactile hallucinations or visual hallucinations Endocrine Endocrinology: Denies none, cold intolerance, excessive sweating, fatigue or heat intolerance Hematologic/Lymphatic Hematologic/Lymphatic: Reports none; Denies anemia, easy bleeding or easy bruising Allergic/Immunologic Allergic/Immunologic ED: Denies as per HPI, none, lip swelling, mouth swelling, throat swelling, tongue swelling or hives PFSH PFSH Medical History (Updated 12/16/21 @ 15:[address] Daysi Ladd, DO) Adjustment disorder Alcohol use disorder Bipolar disorder, unspecified Borderline personality disorder DANA (generalized anxiety disorder) Nicotine dependence, cigarettes, uncomplicated Persistent depressive disorder Home Medications multivitamin with minerals 1 cap PO DAILY 30 Days #30 cap 06/27/21 [Rx Last Taken Unknown] brexpiprazole [Rexulti] 0.5 mg PO DAILY 30 Days #53 tab 07/25/21 [Rx Last Taken Unknown] trazodone 50 mg PO DAILY 30 Days #30 tab 08/01/21 [Rx Last Taken Unknown] lidocaine HCl [Lidocaine Viscous] 15 ml MUCOUS MEMBRANE Q6H PRN 5 Days #300 ml 09/07/21 [Rx Last Taken Unknown] prednisone 40 mg PO DAILY 5 Days #10 tab 09/07/21 [Rx Last Taken Unknown] albuterol sulfate [Ventolin HFA] 2 puff INHALATION Q4H PRN PRN #1 inhaler 12/16/21 [Rx Last Taken Unknown] doxycycline monohydrate 100 mg PO BID #20 capsule 12/16/21 [Rx Last Taken Unknown] prednisone 20 mg PO BID #6 tab 12/16/21 [Rx Last Taken Unknown] Allergy/AdvReac Type Severity Reaction Status Date / Time nickel Allergy Rash Verified 12/16/21 14:49 codeine AdvReac Other Verified 12/16/21 14:49 Social History Smoking Status: Current every day smoker tobacco type: cigarettes EXAM Physical Exam Const Vital Signs: 12/16/21 14:47 12/16/21 15:08 Temperature 97.8 F Temperature Source Temporal Pulse Rate 94 Respiratory Rate 18 Respiratory Effort Short of Breath Respiratory Depth Normal Respiratory Pattern Normal Blood Pressure 117/86 H Blood Pressure Mean 96 Pulse Ox 95 Oxygen Delivery Method Room Air Positive well nourished and well developed General Appearance ED: well developed and NAD HEENT Reports TM's clear and moist mucous membranes normocephalic and atraumatic; Negative for trauma or tenderness Tympanic Membrane ED: Yes TM's clear Eyes PERRL and EOMs intact bilaterally General Eye ED: Negative for pale conjunctiva or scleral icterus Neck no lymphadenopathy, supple and no JVD General: Negative for tenderness Chest Wall inspection of chest normal and palpation of chest normal Chest: Negative for tenderness Resp normal respiratory effort and clear to auscultation bilaterally Effort and Inspection: Negative for respiratory distress or pain with movement Auscultation: Negative for rhonchi, wheezes or diminished lung sounds Cardio regular rate, regular rhythm, S1 normal heart sound, S2 normal heart sound and no murmurs Peripheral Pulses: pulses 2+ throughout GI normal to inspection, nondistended, normoactive bowel sounds, soft to palpation, non-tender, non-distended and no masses Back/Spine no CVA tenderness and no thoracic nor lumbar tenderness Extremity normal to inspection General Extremety ED: Negative for edema General Extremity: Negative for edema Neuro oriented x3, CN's II-XII intact bilaterally, no sensory deficits noted and gait normal Sensorium / Orientation: awake, alert, oriented to person, oriented to place and oriented to time Motor Exam: strength 5/5 throughout and strength abnormal Psych mental status grossly normal Skin no rashes or lesions noted and no wounds MDM MDM MDM Narrative Medical decision making narrative: Patient's exam is unremarkable. I will feel any imaging is indicated. I will not repeat a Covid test that she took one at home and it was negative yesterday. Patient will be started on doxycycline as well as albuterol MDI and 3 days worth of prednisone. Patient advised to fol low-up with her primary care physician in 3 to 5 days. She is to return if increasing shortness of breath or condition should worsen anyway. Discharge Plan Triage Chief Complaint: Cough ED Provider: Daysi Ladd Dx/Rx/DC Orders Clinical Impression: Bronchitis Instructions: ED Upper Resp Infec Abx Tx Prescriptions: New doxycycline monohydrate 100 MG capsule 100 mg PO BID Qty: 20 RF: 0 albuterol sulfate [Ventolin HFA] 1 INHALER inhaler 2 puff inhalation Q4H PRN PRN (Reason: Wheezing) Qty: 1 RF: 0 prednisone 20 mg tablet 20 mg PO BID Qty: 6 RF: 0 No Action multivitamin with minerals Capsule 1 cap PO DAILY 30 Days Qty: 30 RF: 2 Rexulti 0.5 mg tablet 0.5 mg PO DAILY 30 Days Qty: 53 RF: 0 trazodone 50 mg tablet 50 mg PO DAILY 30 Days Qty: 30 RF: 0 prednisone 20 mg tablet 40 mg PO DAILY 5 Days Qty: 10 RF: 0 lidocaine HCl [Lidocaine Viscous] 2 % solution 15 ml mucous membrane Q6H PRN (Reason: pain) 5 Days Qty: 300 RF: 0 Primary Care Provider: Care Physician,No Primary Referrals: Jaison Pulido MD [STAFF PHYSICIAN] - 3-5 Days Care Physician,No Primary [Primary Care Provider] -
[2021-12-16 15:48] VITALS: O2SAT 96
== END 2021-12-16 15:50 | disposition home or self-care (01) ==
LOC: ED 15:44
PROVIDERS: Emergency Provider Emergency Medicine; Visit Provider Emergency Medicine
DX: J40 Bronchitis, not specified as acute or chronic (principal); F31.9 Bipolar disorder, unspecified; F60.3 Borderline personality disorder; F17.210 Nicotine dependence, cigarettes, uncomplicated; Z79.899 Other long term (current) drug therapy; F43.20 Adjustment disorder, unspecified
CPT/HCPCS: 99283

== ENCOUNTER 2022-01-04 15:20 | Emergency (ER) | payer MEDICAID, SELFPAY ==
[2022-01-04 15:21] VITALS: BP 130/77; PULSE 83; RESP 16; TEMP 36.4; O2SAT 99; BMI 32.5
[2022-01-04 15:26] VITALS: BP 122/81; PULSE 86; PULSE 87; RESP 16; TEMP 36.6; O2SAT 100; O2SAT 98; BMI 33.7
--- NOTE | 2022-01-04 15:28 | EDS_ITS ---
HPI History of Present Illness Chief Complaint: Allergic Reaction Narrative Narrative: Patient with past medical history of depression and anxiety presents with allergic type reaction that she had after starting a new medication. She states that she used to take Prozac 5 years ago, but stopped taking it. Her primary care physician wrote her for Prozac until she can see the psychiatrist. She states she took the Prozac a few hours ago and now her lips feel swollen and tingly and she complains of throat scratchiness and tightness. She states she had a facial rash already from a week ago that had nothing to do with this. She has not had any prior reactions to taking Prozac in the past. Her only other drug allergy is codeine and she states that she has more of mental issues with taking codeine. She denies any shortness of breath or cough. No other symptoms. She was able to drive herself here. [facility] Medical History (Updated 01/04/22 @ 17:31 by Shaun Baugh MD) Adjustment disorder Borderline personality disorder DANA (generalized anxiety disorder) Nicotine dependence, cigarettes, uncomplicated Persistent depressive disorder Home Medications prednisone 40 mg PO DAILY #10 tab 01/04/22 [Rx Last Taken Unknown] Allergy/AdvReac Type Severity Reaction Status Date / Time fluoxetine [From Prozac] Allergy Angioedema Verified 01/04/22 15:24 nickel Allergy Rash Verified 12/16/21 14:49 codeine AdvReac Other Verified 12/16/21 14:49 Social History Smoking Status: Current every day smoker tobacco type: cigarettes ROS ROS ED ROS Narrative Constitutional: No fever, no chills. HEENT: No sore throat. Throat tightness. Lip swelling. No neck pain. No loss of vision. No rhinorrhea. Cardiovascular: No chest pain. No palpitations. No pedal edema. Respiratory: No cough, no shortness of breath. Abdominal: No abdominal pain. No nausea. No vomiting. Genitourinary: No dysuria. No hematuria. Musculoskeletal: No myalgias. No arthralgias. Neurologic: No headaches. No dizziness. No lightheadedness. Skin: Already had facial rash. No change in color. Psychiatric: No depression. No anxiety. EXAM Physical Exam Narrative Exam Narrative: Afebrile. Vital signs noted. HEENT: Normocephalic. Atraumatic. PERRL, EOMI. Neck soft and supple. No point tenderness or step off. Airway patent. No drooling or trismus. No appreciable swelling of lips. No woody edema. Cardiovascular: Regular rate and rhythm. No murmurs, rubs, or gallops appreciated. Respiratory: No tachypnea. Lungs clear to auscultation bilaterally. Speaking in full sentences. No respiratory distress. Gastrointestinal: Abdomen soft, nontender, with normoactive bowel sounds. No rebound or guarding. Neurological: Awake. Alert. Nonfocal, nonlateralizing. Skin: No rash. Normal color. No pallor. Musculoskeletal: No pedal edema. Full range of motion extremities. Const Vital Signs: 01/04/22 15:21 01/04/22 15:26 01/04/22 17:28 Temperature 97.6 F L 97.8 F Temperature Source Temporal Temporal Pulse Rate 83 86 73 Respiratory Rate 16 16 19 H Blood Pressure 130/77 H 122/81 H 117/85 H Blood Pressure Mean 94 94 95 Pulse Ox 99 98 97 Oxygen Delivery Method Room Air Room Air Room Air MDM MDM MDM Narrative Medical decision making narrative: Patient was administered Benadryl 50 mg orally, prednisone 60 mg orally, and Pepcid 20 mg orally. She was told to avoid the future use of Prozac. While there is no appreciable lip swelling, or tongue swelling, upon repeat examination, she states she feels improved. She was written a prescription for prednisone 40 mg for burst for the next 5 days. She will take [id number] Pepcid and Benadryl as needed. She will call her physician for new antidepressant. At this point in time, I feel she be discharged safely home with follow-up. Return instructions to the emergency department were reviewed. Disposition is discharged home in stable condition. Discharge Plan Triage Chief Complaint: Allergic Reaction ED Provider: Shaun Baugh Dx/Rx/DC Orders Clinical Impression: Allergic reaction, Swelling of both lips, Depression Instructions: ED ADVERSE DRUG REACTION Allergic Prescriptions: New prednisone 20 mg tablet 40 mg PO DAILY Qty: 10 RF: 0 Primary Care Provider: Care Physician,No Primary Referrals: Care Physician,No Primary [Primary Care Provider] - Activity Restrictions/Additional Instructions: Follow-up with your primary care physician. Avoid future use of Prozac. Call your doctor for another antidepressant. Disposition Disposition: Home, Self Care
[2022-01-04] MEDS: DiphenhydrAMINE 25 MG Capsule 50 MG PO (15:47)
[2022-01-04] MEDS: Famotidine 20 MG Tablet PO (15:47)
[2022-01-04] MEDS: predniSONE 20 MG Tablet 60 MG PO (15:47)
[2022-01-04 17:28] VITALS: BP 117/85; PULSE 73; RESP 19; O2SAT 97
[2022-01-04 17:34] VITALS: BP 120/83; PULSE 81; RESP 20; O2SAT 98
== END 2022-01-04 17:44 | disposition home or self-care (01) ==
PROVIDERS: Emergency Provider Emergency Medicine; Visit Provider Emergency Medicine
DX: T43.205A Adverse effect of unspecified antidepressants, initial encounter (principal); R22.0 Localized swelling, mass and lump, head; F32.A Depression, unspecified; F41.9 Anxiety disorder, unspecified; F17.210 Nicotine dependence, cigarettes, uncomplicated; Z79.899 Other long term (current) drug therapy
CPT/HCPCS: 99284; A4216

== ENCOUNTER → 2022-01-21 11:16 | Outpatient (CLI) | payer MEDICAID, SELFPAY ==
--- NOTE | 2022-01-21 11:20 | US_ITS ---
STUDY: ULTRASOUND - US Head/Neck Soft Tissue 01/21/2022 2:54 PM REASON FOR EXAM: Female, 31 years old. SWELLING MASS OR LUMP OF NECKSWELLING MASS OR LUMP OF NECK TECHNIQUE: A superficial ultrasound was performed with real-time and static coles-scale imaging. COMPARISON: None. FINDINGS: There is a cystic and solid mass in the area of concern. It is 30 x 21 x 14mm. This is inferior to the submandibular gland. US/Head/Neck Soft Tissue IMPRESSION: There is a cystic and solid mass in the area of concern. Electronically Signed: Edson Dyer MD at 14:56 EDT ,
== END ==
DX: R22.1 Localized swelling, mass and lump, neck (principal)
CPT/HCPCS: 76536

== ENCOUNTER → 2022-02-21 | Outpatient (CLI) | payer MEDICAID, SELFPAY ==
--- NOTE | 2022-02-21 07:48 | CT_ITS ---
STUDY: CT SOFT TISSUE NECK WITH CONTRAST REASON FOR EXAM: Female, 31 years old. NECK MASS. Abnormal sonogram of the soft tissues of the neck. RADIATION DOSAGE (If Supplied By Facility): CTDIvol = ( 18.26 ) mGy, DLP = ( 579.40 ) mGycm TECHNIQUE: The patient was scanned in a multi-detector CT scanner. High resolution transaxial imaging was performed following intravenous administration of IV 75mL Isovue-370. Sagittal and coronal images were reconstructed. Individualized dose optimization techniques were used for this CT. COMPARISON: None. FINDINGS: Normal bilateral parotid glands. 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 Normal bilateral parapharyngeal spaces. Normal bilateral carotid spaces. Normal bilateral sublingual and submandibular glands and spaces. Normal visualized nasopharynx. Normal retropharyngeal space. Normal perivertebral space. Normal visualized bilateral faucial tonsils. The visualized tongue, tongue base and oropharynx are normal. The visualized cervical lymph nodes (levels I-) are within normal size limits, and maintain normal morphology. There is a 1.6 cm x 2 cm x 2.5 cm well-defined fat containing nodule in the left anterior triangle of the neck just caudad to the left mandibular angle. This lies anterior to the sternocleidomastoid muscle. There is no abnormal contrast enhancement. Normal epiglottis, bilateral vallecula and hypopharynx. The pre-epiglottic and paraglottic adipose spaces are normal. Normal visualized bilateral piriform sinuses, aryepiglottic folds, vocal cords, and arytenoid-cricoid articulations. Normal subglottic trachea. Normal bilateral lobes of the thyroid gland. Normal visualized pulmonary apices. Normal visualized paranasal sinuses. Normal visualized cervical spine. CT/Soft Tissue Neck WITH Contrast IMPRESSION: 1.6 cm x 2 cm x 2.5 cm well-defined fat-containing nodule in the left anterior triangle of the neck, that to the left mandibular angle and anterior to the left sternocleidomastoid muscle. Electronically Signed: Leo Ray MD at 9:00 EDT ,
== END | disposition home or self-care (01) ==
LOC: CT 07:46
PROVIDERS: Referring Provider Otolaryngology; Visit Provider Otolaryngology
DX: R22.1 Localized swelling, mass and lump, neck (principal)
CPT/HCPCS: 70491; Q9967

== ENCOUNTER → 2022-03-05 | Outpatient (CLI) | payer MEDICAID, SELFPAY ==
--- NOTE | 2022-03-05 09:30 | ASPOS_PTH ---
PATIENT: DK DIAZ LOC: LAB U#:[id number] AGE/SX: 31/F ROOM: RE03/05/[address]: Dr. Willy Bennett MD : 1990 BED: DIS: 03/05/2022 SPEC #: [id number] RECD: 03/05/22 10:34 STATUS: ELENI [place] #: [id number] EMELY: 03/05/22 09:[address]: Willy Bennett DEPT: CYTOLOGY RECD BY: Sonia Monsalve Tissues: Neck, NOS Procedures: Surgery Specimen Level IV Cytology Other Fine Needle Asp on Site HEADER OPERATION: Fine needle aspiration, left neck mass PRE-OP DIAGNOSIS: Left neck mass TISSUE SUBMITTED: Left neck mass DIAGNOSIS CYTOLOGY Fine needle aspiration, left neck mass (smears and cell block): Negative for malignant cells. See comment. AM:dominique 03/06/2022 COMMENT The specimen is evaluated at the time of FNA by Dr. Ramos. Immediate Evaluation = Negative for malignant cells. The aspirated 1.5 ml of oily yellow fluid is virtually acellular and may represent a degenerative/cystic transformation of a lipomatous lesion. Clinical correlation is suggested. CYTOLOGY STUDY Slides are reviewed. CYTOLOGY GROSS Received is 1.5 ml of yellow oily material labeled with the patient's name, and designated left neck mass. Four imprints and three paps are made from the submitted fluid and the rest is added to CytoLyt for cell block preparation. Submitted for cytology study. / AM:dominique 03/05/2022 TC:5 CPT: 61243, 01836, 42564, 87898
== END | disposition home or self-care (01) ==
LOC: LAB 09:21
PROVIDERS: Referring Provider Otolaryngology; Visit Provider Otolaryngology
DX: R22.1 Localized swelling, mass and lump, neck (principal)
CPT/HCPCS: 10021; 88161; 88305

== ENCOUNTER 2022-10-19 17:41 | Emergency (ER) | payer MEDICAID, SELFPAY ==
[2022-10-19 17:42] VITALS: BP 119/82; PULSE 74; RESP 18; TEMP 36.2; O2SAT 100; BMI 25.7
[2022-10-19 18:00] LABS: Bacteria 0 SEEN /hpf (None Seen); Mucous, Urine 0 SEEN /hpf (<or=2+); Red Blood Cells-Urine 0 SEEN /hpf (0-5); White Blood Cells 0 SEEN /hpf (0-5)
[2022-10-19 18:01] LABS: Color, Urine Straw (Yellow); Glucose, Dipstick Normal (Normal); Ketone-Dipstick Negative (Negative); Leukocyte Esterase-Dipstick Negative /ul (Negative); Nitrite-Dipstick Negative (Negative); Occult Blood-Urine Negative /ul (Negative); Protein-Dipstick Negative (Negative); Urine Bilirubin Dipstick Negative (Negative); Urine Clarity Clear (Clear); Urine Urobilinogen Normal (Normal)
[2022-10-19 18:10] LABS: Amorphous Sediment 1+ PHOS; Squamous Epithelial Cells - UA 0-5 SEEN /hpf (5-10)
[2022-10-19 18:51] LABS: Absolute Lymphocyte Count 3.93 X10^3/uL (0.83-4.51); Absolute Neutrophil Count 7.2 X10^3/uL (2.0-7.7); Basophil# 0.09 X10^3/uL; Basophil% 0.7 % (0-1); Eosinophil# 0.58 X10^3/uL; Eosinophils% 4.7 % (0-5); Hematocrit 45.5 % (37-47); Lymphocyte # 3.93 X10^3/ul (0.83-4.51); Lymphocyte % 31.6 % (19-41); Mean Corpuscular Hgb 31.1 pg (27.0-32.0); Mean Corpuscular Volume 94.2 fL (81-99); Mean Platelet Vol. 8.6 fl (6.2-12.0); Monocyte% 4.8 % (0-10); NRBC Flagged by Analyzer 0 % (0-5); Neutrophil # 7.21 X10^3/uL (2.7-7.7); Neutrophil % 57.9 % (47-70); Platelet Count 316 K/mm3 (150-450); RBC Distribution Width CV 13.2 % (11.6-14.6); RBC Distribution Width SD 45.7 fl (35.1-43.9); Red Blood Count 4.83 M/mm3 (4.2-5.4); White Blood Count 12.5 K/mm3 (4.4-11.0)
[2022-10-19 19:04] LABS: Anion Gap 3 (5-15); BUN 10 mg/dL (7-18); BUN/Creat Ratio 11.3 RATIO (10-20); Calcium,Total 9.5 mg/dL (8.5-10.1); Chloride 107 mmol/L (98-107); Creatinine, Serum 0.88 mg/dL (0.55-1.02); EST Glomerular Filtration Rate 79 mL/min (>60); Est Glom Filt Rate - Afr Amer 96 mL/min (>60); Estimated Creatinine Clearance 83.35 ml/min; Glucose 104 mg/dL (74-106); Potassium 3.9 mmol/L (3.5-5.1); Sodium Level 138 mmol/L (136-145)
[2022-10-19 19:32] LABS: Internal QC Validated? YES +Cl - CLEAR BKGD; Pregnancy, Serum, hCG Quali. NEGATIVE Negative
[2022-10-19 19:41] VITALS: RESP 15
--- NOTE | 2022-10-19 20:14 | ED.RN ---
INFORMED BY PATIENT THAT SHE DOES NOT WANT TO HAVE A CT & WOULD LIKE HER SALINE LOCK REMOVED. DC'D IV AND INFORMED DR MENA.
--- NOTE | 2022-10-19 20:35 | ED.VIS.GI ---
HPI HPI - GI History of Present Illness Chief Complaint: Abd Pain Informant: patient Abdominal Pain/Flank Pain Onset: Today and Hours Context: Sudden Onset Timing: Continuous Quality: Cramping and Stabbing Location: - (Suprapubic) Worsened by: - (Urination) Relieved by: Nothing Diarrhea/Melena/Hematochezia GI Symptom: Negative for Diarrhea, Melena or Hematochezia Associated Symptoms Associated Symptoms: Positive for Dysuria; Negative for Frequency or Hematuria Narrative Narrative: Patient presents with abdominal pain that began few hours prior to arrival. Patient states her pain began rather suddenly. Patient states it is over the suprapubic area. Patient describes it as cramping and stabbing. Patient states it is worse whenever she urinates. Patient denies any nausea or vomiting. Patient denies any diarrhea, melena, or hematochezia. Patient denies any urinary frequency or hematuria. Patient states her last menstrual period began 10 days ago. Patient denies any chance of . Patient states her pain does radiate into her low back. Patient states this does feel similar to prior urinary tract infections. [facility] Medical History Adjustment disorder Borderline personality disorder DANA (generalized anxiety disorder) Nicotine dependence, cigarettes, uncomplicated Persistent depressive disorder Home Medications prednisone 20 mg tablet 40 mg PO DAILY #10 tabs 01/04/22 [Rx Last Taken Unknown] Allergy/AdvReac Type Severity Reaction Status Date / Time fluoxetine [From Prozac] Allergy Angioedema Verified 10/19/22 17:42 nickel Allergy Rash Verified 10/19/22 17:42 codeine AdvReac Other Verified 10/19/22 17:42 Social History Smoking Status: Current every day smoker tobacco type: cigarettes ROS ROS ED Constitutional Constitutional ED: Denies chills or fever(s) Eyes Eyes: Denies blurry vision or change in vision ENT ENT ED: Denies rhinorrhea or sore throat Cardiovascular Cardiovascular: Denies chest pain or palpitations Respiratory/Chest Respiratory/Chest: Denies cough or dyspnea Gastrointestinal Gastrointestinal: Reports abdominal pain; Denies nausea or vomiting Genitourinary Genitourinary ED: Reports dysuria; Denies hematuria Musculoskeletal Musculoskeletal: Reports back pain; Denies neck pain Integumentary Denies abscess or rash Neurologic Neurologic: Denies headache(s) or weakness Allergic/Immunologic Allergic/Immunologic ED: Denies mouth swelling or urticaria EXAM Physical Exam Const Vital Signs: 10/19/22 17:42 10/19/22 19:41 Temperature 97.2 F L Temperature Source Temporal Pulse Rate 74 Respiratory Rate 18 15 Blood Pressure 119/82 H Blood Pressure Mean 94 Pulse Ox 100 Oxygen Delivery Method Room Air Room Air Positive well nourished and well developed General Appearance ED: well developed HEENT Reports moist mucous membranes Neck supple and no JVD Resp normal respiratory effort and clear to auscultation bilaterally Cardio regular rate, regular rhythm and no murmurs GI normal to inspection, nondistended, normoactive bowel sounds Palpation: soft and tender suprapubic; Negative for guarding or rebound tenderness present Extremity normal to inspection General Extremety ED: Negative for edema or tenderness General Extremity: Negative for edema Neuro oriented x3, CN's II-XII intact bilaterally and no sensory deficits noted Sensorium / Orientation: alert Motor Exam: strength 5/5 throughout Psych mental status grossly normal Skin no rashes or lesions noted MDM MDM MDM Narrative Medical decision making narrative: Urinalysis was obtained and was reviewed. There is no evidence of urinary tract infection or hematuria. CBC was obtained and was reviewed. There is a mild leukocytosis of 12.5. There is no anemia. Platelets were normal. Basic metabolic profile was obtained and was reviewed. This was all within normal limits. Serum hCG was obtained and was negative. Because of the patient's pain, I recommended obtaining a CT scan. Patient does not want to have a CT scan done at this time. Patient was advised of her findings. Patient was advised that this is not from a urinary tract infection. Patient was instructed to try [id number] Azo as needed for her urinary symptoms. Patient was instructed to follow-up with her primary care physician or [facility] in 5 to 7 days. Patient was instructed return if worse in any way. Patient understood and was agreeable with the plan. All questions were answered. Lab Data Attestation: I reviewed the patient's lab results. Labs: Laboratory Results - last 24 hr 10/19/22 10/19/22 10/19/22 17:56 18:40 18:40 WBC 12.5 H RBC 4.83 Hgb 15.0 Hct 45.5 MCV 94.2 MCH 31.1 MCHC 33.0 RDW Std Deviation 45.7 H RDW Coeff of Olamide 13.2 Plt Count 316 MPV 8.6 Immature Gran % (Auto) 0.300 Neut % (Auto) 57.9 Lymph % (Auto) 31.6 [place] % (Auto) 4.8 Eos % (Auto) 4.7 Baso % (Auto) 0.7 Absolute Neuts (auto) 7.2 Absolute Lymphs (auto) 3.93 Nucleated RBC % 0 Sodium 138 Potassium 3.9 Chloride 107 Carbon Dioxide 28.0 Anion Gap 3 L BUN 10 Creatinine 0.88 Estim Creat Clear Calc 83.35 Est GFR (MDRD) Af Amer 96 Est GFR (MDRD) Non-Af 79 BUN/Creatinine Ratio 11.3 Glucose 104 Calcium 9.5 Serum , Qual Urine Color Straw Urine Clarity Clear Urine pH 7.0 Ur Specific [place] 1.010 Urine Protein Negative Urine Glucose (UA) Normal Urine Ketones Negative Urine Occult Blood Negative Urine Nitrite Negative Urine Bilirubin Negative Urine Urobilinogen Normal Ur Leukocyte Esterase Negative Urine RBC 0 SEEN Urine WBC 0 SEEN Ur Squamous Epith Cells 0-5 SEEN Amorphous Sediment 1+ PHOS Urine Bacteria 0 SEEN Urine Mucus 0 SEEN 10/19/22 18:40 WBC RBC Hgb Hct MCV MCH MCHC RDW Std Deviation RDW Coeff of Olamide Plt Count MPV Immature Gran % (Auto) Neut % (Auto) Lymph % (Auto) [place] % (Auto) Eos % (Auto) Baso % (Auto) Absolute Neuts (auto) Absolute Lymphs (auto) Nucleated RBC % Sodium Potassium Chloride Carbon Dioxide Anion Gap BUN Creatinine Estim Creat Clear Calc Est GFR (MDRD) Af Amer Est GFR (MDRD) Non-Af BUN/Creatinine Ratio Glucose Calcium Serum , Qual NEGATIVE Urine Color Urine Clarity Urine pH Ur Specific [place] Urine Protein Urine Glucose (UA) Urine Ketones Urine Occult Blood Urine Nitrite Urine Bilirubin Urine Urobilinogen Ur Leukocyte Esterase Urine RBC Urine WBC Ur Squamous Epith Cells Amorphous Sediment Urine Bacteria Urine Mucus Discharge Plan Triage Chief Complaint: Abd Pain ED Provider: Suman Birch Dx/Rx/DC Orders Clinical Impression: Pelvic pain Instructions: ED Abdominal Pain Unkn Cause Fem, ED Pelvic Pain, Unknown Cause Prescriptions: No Action prednisone 20 mg tablet 40 mg PO DAILY Qty: 10 0RF Primary Care Provider: ELINA NAVARRO Referrals: ELINA NAVARRO [Other] - 5-7 Days Disposition Disposition: Home, Self Care
[2022-10-19 20:40] VITALS: BP 119/82; PULSE 74; RESP 18; O2SAT 100
== END 2022-10-19 20:53 | disposition home or self-care (01) ==
PROVIDERS: Emergency Provider Emergency Medicine; Visit Provider Emergency Medicine
DX: R10.2 Pelvic and perineal pain (principal); F17.210 Nicotine dependence, cigarettes, uncomplicated; R30.0 Dysuria; R10.9 Unspecified abdominal pain
CPT/HCPCS: 80048; 81001; 84703; 85025; 99284; A4216

== ENCOUNTER 2022-11-20 14:53 | Emergency (ER) | payer OTHER, MEDICAID, SELFPAY ==
[2022-11-20 14:54] VITALS: BP 134/92; PULSE 95; RESP 16; TEMP 36.4; O2SAT 100; BMI 26.6
--- NOTE | 2022-11-20 15:07 | EX.ED.VISEXT ---
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 A pit bull snuck out from a contained area in the house. It ran up and bit her on the back of her left thigh. This happened quite recently within about the last hour. Last tetanus is unknown. She has no history of immunosuppression and she is not on any immunosuppressive drugs or steroids. Her med list currently shows prednisone but she is not on this now. She is on Abilify. Because she had some mild hyperglycemia with Abilify she was placed on a low-dose of metformin. However she has never been diagnosed with diabetes and is not having polyuria or polydipsia. No clouding of vision. ROS ROS ED Constitutional Constitutional ED: Denies chills or fever(s) Gastrointestinal Gastrointestinal: Denies nausea or vomiting Integumentary Reports Abrasions and other Details: See HPI Hematologic/Lymphatic Hematologic/Lymphatic: Denies easy bleeding or easy bruising Allergic/Immunologic Allergic/Immunologic ED: Denies urticaria PFSH PFSH Medical History Adjustment disorder Borderline personality disorder DANA (generalized anxiety disorder) Nicotine dependence, cigarettes, uncomplicated Persistent depressive disorder Home Medications prednisone 20 mg tablet 40 mg PO DAILY #10 tabs 01/04/22 [Rx Last Taken Unknown] amoxicillin 875 mg-potassium clavulanate 125 mg tablet 875 mg PO Q12H #10 TABLETS 11/20/22 [Rx Last Taken Unknown] Allergy/AdvReac Type Severity Reaction Status Date / Time fluoxetine [From Prozac] Allergy Angioedema Verified 11/20/22 14:54 nickel Allergy Rash Verified 11/20/22 14:54 codeine AdvReac Other Verified 11/20/22 14:54 Social History Smoking Status: Current every day smoker tobacco type: cigarettes EXAM Physical Exam Narrative Exam Narrative: Patient is awake alert and appropriate. HEENT shows no sign of trauma. Breathing is easy and unlabored Extremities: There are 2 red dots that could be partial puncture wounds on the mid left posterior thigh. Proximal to this there is some abrasions. This is consistent with a dog bite with teeth possibly puncturing the skin and other teeth dragging across it. There is no tear of the skin or any laceration or open area. There is nothing that could be sutured even though we would likely not do that considering the origin of injury. No bleeding. No notable swelling. Neuro: No numbness tingling or lack of function distally Skin: See above Const Vital Signs: 11/20/22 14:54 Temperature 97.6 F L Temperature Source Temporal Pulse Rate 95 Respiratory Rate 16 Blood Pressure 134/92 H Blood Pressure Mean 106 Pulse Ox 100 Oxygen Delivery Method Room Air MDM MDM MDM Narrative Medical decision making narrative: This was the bite of a domesticated dog inside that is reportedly up-to-date. There is really no risk of rabies. Patient does have 2 possible small puncture wounds. With this, I will treat her with antibiotics. She has no history of allergy to penicillins. We discussed with her signs and symptoms of infection and things that would prompt her to return. We will also update her tetanus shot. With small only possible puncture wounds and no tear of the tissue there is not indication for x-ray. I do not think blood work would be appropriate in this case. It would not change our management. Discharge Plan Triage Chief Complaint: Bite ED Provider: Jimmie Quiroga Dx/Rx/DC Orders Clinical Impression: Dog bite of left thigh, Tetanus toxoid inoculation Instructions: ED Dog Bite Prescriptions: New amoxicillin-pot clavulanate [amoxicillin-pot clavulanate] 875-125 mg tablet 875 mg PO Q12H Qty: 10 0RF No Action prednisone 20 mg tablet 40 mg PO DAILY Qty: 10 0RF Primary Care Provider: [facility] Doctor,Out of Referrals: [facility] Doctor,Out of [Primary Care Provider] - 3-5 Days if not improving Disposition Disposition: Home, Self Care
[2022-11-20] MEDS: Amox/Clavulanate 875 MG Tablet PO (15:20)
[2022-11-20] MEDS: Diphth,Pertuss(Acell),Tet Vac 0.5 ML Vial IM (15:20)
[2022-11-20 15:39] VITALS: RESP 16
== END 2022-11-20 15:40 | disposition home or self-care (01) ==
LOC: ED 15:27
PROVIDERS: Emergency Provider Emergency Medicine; Visit Provider Emergency Medicine
DX: S71.152A Open bite, left thigh, initial encounter (principal); F17.210 Nicotine dependence, cigarettes, uncomplicated; R73.9 Hyperglycemia, unspecified; Z79.899 Other long term (current) drug therapy; W54.0XXA Bitten by dog, initial encounter; Y99.0 Civilian activity done for income or pay; Z23 Encounter for immunization
CPT/HCPCS: 90471; 90715; 99282

== ENCOUNTER → 2023-07-02 | Outpatient (CLI) | payer MEDICAID, SELFPAY ==
[2023-07-02 10:15] LABS: Absolute Neutrophil Count 3.1 X10^3/uL (2.0-7.7); Basophil# 0.05 X10^3/uL; Basophil% 0.8 % (0-1); Eosinophil# 0.19 X10^3/uL; Eosinophils% 3.1 % (0-5); Hematocrit 37.8 % (37-47); Hemoglobin 12.5 g/dL (12.0-15.0); Lymphocyte % 40.2 % (19-41); Mean Corp Hgb Conc 33.1 g/dL (32-36); Mean Corpuscular Hgb 31.8 pg (27.0-32.0); Mean Corpuscular Volume 96.2 fL (81-99); Mean Platelet Vol. 8.8 fl (6.2-12.0); Monocyte# 0.41 X10^3/uL; Monocyte% 6.6 % (0-10); NRBC Flagged by Analyzer 0 % (0-5); Neutrophil # 3.05 X10^3/uL (2.7-7.7); Platelet Count 277 K/mm3 (150-450); RBC Distribution Width CV 11.9 % (11.6-14.6); RBC Distribution Width SD 42.2 fl (35.1-43.9); Red Blood Count 3.93 M/mm3 (4.2-5.4); White Blood Count 6.2 K/mm3 (4.4-11.0)
[2023-07-02 10:48] LABS: Vitamin B12 470 pg/mL (211-911); Vitamin D,25 Hydroxy 26.9 ng/mL
[2023-07-02 11:09] LABS: ALB/GLOB Ratio 1.1 RATIO (0.9-2.4); AST(SGOT) 12 U/L (15-37); Alanine Aminotransfer ALT/SGPT 19 U/L (13-56); Albumin, Serum 3.7 g/dL (3.2-5.0); Alkaline Phosphatase 38 U/L (45-117); Anion Gap 5 (5-15); BUN 9 mg/dL (7-18); BUN/Creat Ratio 11.5 RATIO (10-20); Bilirubin, Direct 0.09 mg/dL (0.00-0.30); Calcium,Total 8.6 mg/dL (8.5-10.1); Chloride 108 mmol/L (98-107); Cholesterol 153 mg/dL (200); Creatinine, Serum 0.78 mg/dL (0.55-1.02); EST Glomerular Filtration Rate 91 mL/min (>60); Est Glom Filt Rate - Afr Amer 110 mL/min (>60); Globulin 3.3 g/dL (2.2-4.2); Glucose 93 mg/dL (74-106); High Density Lipoprotein 53 mg/dL; Iron 56 ug/dL (50-170); Sodium Level 137 mmol/L (136-145); Thyroid Stim Hormone (TSH) 2.06 uIU/mL (0.358-3.74); Triglycerides 108 mg/dL; Very Low Density Lipoprotein 22 mg/dL (5-40)
== END | disposition home or self-care (01) ==
DX: Z79.899 Other long term (current) drug therapy (principal)
CPT/HCPCS: 36415; 80053; 80061; 82248; 82306; 82607; 82746; 83540; 84443; 85025

== ENCOUNTER → 2023-12-12 | Outpatient (CLI) | payer MEDICAID, SELFPAY ==
[2023-12-12 17:06] LABS: Absolute Lymphocyte Count 2.15 X10^3/uL (0.83-4.51); Absolute Neutrophil Count 2.6 X10^3/uL (2.0-7.7); Basophil# 0.04 X10^3/uL; Basophil% 0.7 % (0-1); Eosinophil# 0.14 X10^3/uL; Eosinophils% 2.6 % (0-5); Hematocrit 42.3 % (37-47); Hemoglobin 13.7 g/dL (12.0-15.0); Lymphocyte # 2.15 X10^3/ul (0.83-4.51); Mean Corp Hgb Conc 32.4 g/dL (32-36); Mean Corpuscular Hgb 30.7 pg (27.0-32.0); Mean Corpuscular Volume 94.8 fL (81-99); Mean Platelet Vol. 9.2 fl (6.2-12.0); Monocyte# 0.41 X10^3/uL; Monocyte% 7.6 % (0-10); NRBC Flagged by Analyzer 0 % (0-5); Neutrophil # 2.62 X10^3/uL (2.7-7.7); Neutrophil % 48.9 % (47-70); Platelet Count 230 K/mm3 (150-450); RBC Distribution Width CV 12.4 % (11.6-14.6); RBC Distribution Width SD 43.6 fl (35.1-43.9); Red Blood Count 4.46 M/mm3 (4.2-5.4); White Blood Count 5.4 K/mm3 (4.4-11.0)
[2023-12-12 17:36] LABS: ALB/GLOB Ratio 1.2 RATIO (0.9-2.4); AST(SGOT) 13 U/L (15-37); Alanine Aminotransfer ALT/SGPT 18 U/L (13-56); Alkaline Phosphatase 35 U/L (45-117); Anion Gap 5 (5-15); BUN 5 mg/dL (7-18); BUN/Creat Ratio 6.2 RATIO (10-20); Calcium,Total 9.2 mg/dL (8.5-10.1); Chloride 109 mmol/L (98-107); Cholesterol 156 mg/dL (200); Creatinine, Serum 0.81 mg/dL (0.55-1.02); EST Glomerular Filtration Rate 87 mL/min (>60); Est Glom Filt Rate - Afr Amer 105 mL/min (>60); Globulin 3.2 g/dL (2.2-4.2); Glucose 85 mg/dL (74-106); High Density Lipoprotein 59 mg/dL; Magnesium 2.4 mg/dL (1.6-2.6); Potassium 3.9 mmol/L (3.5-5.1); Protein, Total 7.2 g/dL (6.4-8.2); Sodium Level 140 mmol/L (136-145); T4 Free Direct 1.26 ng/dL (0.76-1.46); Thyroid Stim Hormone (TSH) 0.94 uIU/mL (0.358-3.74); Triglycerides 85 mg/dL; Very Low Density Lipoprotein 17 mg/dL (5-40)
--- OUTSIDE RECORDS SUMMARY | 2023-12-12 17:36 | XMS RPT_ITS | CCD ---
Author Name Unknown Address [address] [place] [address] Organization [facility] Care Team Providers Care Fudger Name Role Phone ZACKARY SEWELL Unavailable Unavailable ZACKARY SEWELL Unavailable Unavailable NO REFERRING DR Unavailable Unavailable ZACKARY SEWELL Unavailable Unavailable ZACKARY SEWELL Unavailable Unavailable Paris Mccann Primary Care Provider Paris Mccann Primary Care Provider Ramy ELAINE Paris Primary Care Provide r Rcahelle Miranda MA Unavailable Unavailable Jaison Pulido MD Primary Care Provider Unavailable Primary Care Provider Unavailabl MAUDE Parnell Attending Unavailable BAEZ-NOERER, [place] Primary Care Unavailab CAROLINA Ro Attending Unavailable BAEZ-NOERER, [place] Referring Unavailab le BAEZ-SHARRER, [place] Primary Care Unavailab ANA MARÍA Lopez Attending Unavailable BAEZ-NOERER, [place] Referring Unavailab le BAEZ-SHARRER, [place] Primary Care Unavailab KASSANDRA Kevin Referring Unavailable Allergies Allergy Classification Reported Allergen(s) Allergy Type Date of Onset Reaction(s) Facility (19 sources) nickel; Translations: [NICKEL] Drug Allergy 7 Rash [facility] Other [place] [facility] (15 sources) Codeine; Translations: [CODEINE] Drug Allergy 0 Itching [facility] (8 sources) FLUoxetine; Translations: [FLUOXETINE] Drug Allergy 2 Edema, Unknown [facility] Medications Current Medications Medication Drug Class(es) Dates Sig (Normalized) Sig (Original) amoxicillin 875 mg / clavulanate 125 mg oral tablet (2 sources) Penicillin-class Antibacterial Start: 12-08-2023 End: 12-15-2023 take 1 tablet by mouth twice daily amoxicillin-clav ulanate potassium (AUGMENTIN) 875-125 mg per tablet Take 1 tablet by mouth two times a day for 7 days. 14 tablet 0 12/08/2023 12/15/2023 Active Completed/Discontinued Medications Medication Drug Class(es) Dates Sig (Normalized) Sig (Original) acetaminophen 325 mg oral tablet (8 sources) take 2 tablets by mouth every six hours as needed acetaminophen (TYLENOL) 325 mg tablet Take 650 mg by mouth every 6 hours as needed. 0 Active Problems Active Problems Problem Classification Problem Date Documented Date Episodic/Chronic Diabetes mellitus without complication (1 source) Hyperglycemia; Translations: [Hyperglycemia] Episodic Fever of unknown origin (1 source) Fever; Translations: [Fever, unspecified] Episodic Genitourinary symptoms and ill-defined conditions (1 source) Urge incontinence; Translations: [Urge incontinence] Onset: 07-07-2023 Chronic Immunizations and screening for infectious disease (2 sources) Contact with or exposure to other viral diseases; Translations: [Exposure to COVID-19 virus] Onset: 07-07-2023 Episodic Inflammatory diseases of female pelvic organs (1 source) Acute vaginitis; Translations: [Acute vaginitis] Episodic Malaise and fatigue (2 sources) Fatigue; Translations: [Other fatigue] Episodic Nonmalignant breast conditions (2 sources) Breast tenderness; Translations: [Unspecified lump in unspecified breast] Onset: 07-07-2023 Episodic Other and unspecified benign neoplasm (1 source) Melanocytic nevi, unspecified; Translations: [Melanocytic nevi, unspecified] Onset: 06-24-2023 Episodic Other complications of (8 sources) Obesity; Translations: [Obesity complicating , unspecified trimester] Onset: 02-07-2017 02-07-2017 Chronic Other ear and sense organ disorders (1 source) Bilateral hearing loss; Translations: [Bilateral hearing loss, unspecified hearing loss type] Chronic Other liver diseases (1 source) Elevated liver enzymes level; Translations: [Abnormal levels of other serum enzymes] Episodic Other nutritional; endocrine; and metabolic disorders (2 sources) Body mass index 30+ - obesity; Translations: [BMI 31.0-31.9,adult] Chronic Other nutritional; endocrine; and metabolic disorders (1 source) Body mass index (BMI) 28.0-28.9, adult; Translations: [Body mass index (BMI) 28.0-28.9, adult] Onset: 07-07-2023 Episodic Other screening for suspected conditions (not mental disorders or infectious disease) (3 sources) test negative; Translations: [Encounter for screening for malignant neoplasm of cervix] Onset: 07-07-2023 Episodic Other skin disorders (1 source) Other acne; Translations: [Other acne] Onset: 06-24-2023 Episodic Other upper respiratory disease (1 source) Pain in throat; Translations: [Pain in throat] Episodic Other upper respiratory infections (7 sources) Sore throat symptom; Translations: [Acute pharyngitis, unspecified] Onset: 11-28-2023 Episodic Prolapse of female genital organs (1 source) Female genital prolapse, unspecified; Translations: [Female genital prolapse, unspecified] Onset: 07-07-2023 Chronic Residual codes; unclassified (1 source) Chronic pain; Translations: [Chronic left shoulder pain] Chronic Residual codes; unclassified (1 source) Generalized aches and pains; Translations: [Pain, unspecified] Episodic Residual codes; unclassified (1 source) Other problems related to lifestyle; Translations: [Other problems related to lifestyle] Onset: 07-07-2023 Episodic Skin and subcutaneous tissue infections (3 sources) Cutaneous abscess of groin; Translations: [Cellulitis of groin] Onset: 05-27-2017 Episodic Substance-related disorders (2 sources) Nicotine dependence, cigarettes, uncomplicated; Translations: [Smoker] Onset: 05-27-2017 Chronic Unclassified (3 sources) Patient encounter status; Translations: [Encounter for well woman exam with routine gynecological exam] Unclassified (1 source) Breast finding ; Translations: [Dense breast tissue] Unclassified (1 source) Dense breasts, unspecified; Translations: [Dense breasts, unspecified] Onset: 07-07-2023 Past or Other Problems Problem Classification Problem Date Documented Date Episodic/Chronic Diabetes or abnormal glucose tolerance complicating ; childbirth; or the puerperium (8 sources) with abnormal glucose tolerance test; Translations: [Abnormal glucose complicating ] Onset: 03-10-2017 03-10-2017 Episodic Other aftercare (1 source) Other superintendent [employer] (current) drug therapy; Translations: [OTH [facility] CURRENT DR] Onset: 05-27-2017 Episodic Other female genital disorders (2 sources) Other specified noninflammatory disorders of vulva and perineum; Translations: [OTH SPEC NONINFLAMM D/O] Onset: 05-27-2017 Episodic Other and delivery including normal (8 sources) Normal ; Translations: [Encounter for supervision of normal , unspecified, first trimester] Onset: 02-07-2017 02-07-2017 Episodic Results Test Name Value Interpretation Reference Range Facil ity Vital Signs Date Time Vital Sign Value Performing Clinician Facility 12-08-2023 07:18-0500 Body temperature 97.7 [degF] Asia Athy PA-C Work Phone: [facility] 12-08-2023 07:18-0500 Body weight 72.58 kg Asia Athy PA-C Work Phone: [facility] 12-08-2023 07:18-0500 Diastolic blood pressure 68 mm[Hg] Asia Athy PA-C Work Phone: [facility] 12-08-2023 07:18-0500 Heart rate 82 /min Asia Athy PA-C Work Phone: [facility] 12-08-2023 07:18-0500 Respiratory rate 16 /min Asia Athy PA-C Work Phone: [facility] 12-08-2023 07:18-0500 SaO2% (BldA) [Mass fraction] 99 % Asia Athy PA-C Work Phone: [facility] 12-08-2023 07:18-0500 Systolic blood pressure 122 mm[Hg] Asia Athy PA-C Work Phone: [facility] 11-28-2023 13:49-0500 Body temperature 97.9 [degF] Kassandra Alston APRN.CNP Work Phone: [facility] 11-28-2023 13:49-0500 Body weight 72.12 kg Kassandra Pendlebury SEO MARKETING SPECIALIST.COMMISSARY AGENT Work Phone: [facility] 11-28-2023 13:49-0500 Diastolic blood pressure 71 mm[Hg] Kassandra Pendlebury SEO MARKETING SPECIALIST.COMMISSARY AGENT Work Phone: [facility] 11-28-2023 13:49-0500 Heart rate 77 /min Kassandra Pendlebury SEO MARKETING SPECIALIST.COMMISSARY AGENT Work Phone: [facility] 11-28-2023 13:49-0500 Respiratory rate 18 /min Kassandra Pendlebury SEO MARKETING SPECIALIST.COMMISSARY AGENT Work Phone: [facility] 11-28-2023 13:49-0500 SaO2% (BldA) [Mass fraction] 100 % Kassandra Pendlebury SEO MARKETING SPECIALIST.COMMISSARY AGENT Work Phone: [facility] 11-28-2023 13:49-0500 Systolic blood pressure 110 mm[Hg] Kassandra Pendlebury SEO MARKETING SPECIALIST.COMMISSARY AGENT Work Phone: [facility] 07-18-2023 08:11-0400 Body temperature 98.01 [degF] Mary Praisler-Wood SEO MARKETING SPECIALIST.COMMISSARY AGENT Work Phone: [facility] 07-18-2023 08:11-0400 Body weight 75.84 kg Mary Praisler-Wood SEO MARKETING SPECIALIST.COMMISSARY AGENT Work Phone: [facility] 07-18-2023 08:11-0400 Diastolic blood pressure 79 mm[Hg] Mary Praisler-Wood SEO MARKETING SPECIALIST.COMMISSARY AGENT Work Phone: [facility] 07-18-2023 08:11-0400 Heart rate 88 /min Mary Praisler-Wood SEO MARKETING SPECIALIST.COMMISSARY AGENT Work Phone: [facility] 07-18-2023 08:11-0400 Respiratory rate 18 /min Mary Praisler-Wood SEO MARKETING SPECIALIST.COMMISSARY AGENT Work Phone: [facility] 07-18-2023 08:11-0400 SaO2% (BldA) [Mass fraction] 99 % Mary Praisler-Wood SEO MARKETING SPECIALIST.COMMISSARY AGENT Work Phone: [facility] 07-18-2023 08:11-0400 Systolic blood pressure 119 mm[Hg] Mary Comer APRN.COMMISSARY AGENT Work Phone: [facility] 01-16-2023 14:33-0400 Body temperature 97.81 [degF] Asia Athy PA-C Work Phone: [facility] 01-16-2023 14:33-0400 Body weight 75.03 kg Asia Athy PA-C Work Phone: [facility] 01-16-2023 14:33-0400 Diastolic blood pressure 64 mm[Hg] Asia Athy PA-C Work Phone: [facility] 01-16-2023 14:33-0400 Heart rate 62 /min Asia Athy PA-C Work Phone: [facility] 01-16-2023 14:33-0400 Respiratory rate 16 /min Asia Athy PA-C Work Phone: [facility] 01-16-2023 14:33-0400 SaO2% (BldA) [Mass fraction] 97 % Asia Athy PA-C Work Phone: [facility] 01-16-2023 14:33-0400 Systolic blood pressure 122 mm[Hg] Asia Athy PA-C Work Phone: [facility] 11-30-2022 10:56-0500 Body temperature 98.6 [degF] Asia Athy PA-C Work Phone: [facility] 11-30-2022 10:56-0500 Body weight 74.03 kg Asia Athy PA-C Work Phone: [facility] 11-30-2022 10:56-0500 Diastolic blood pressure 86 mm[Hg] Asia Athy PA-C Work Phone: [facility] 11-30-2022 10:56-0500 Heart rate 57 /min Asia Athy PA-C Work Phone: [facility] 11-30-2022 10:56-0500 Respiratory rate 18 /min Asiafish Urrutiay PA-C Work Phone: [facility] 11-30-2022 10:56-0500 SaO2% (BldA) [Mass fraction] 98 % Asiafish Urrutiay PA-C Work Phone: [facility] 11-30-2022 10:56-0500 Systolic blood pressure 128 mm[Hg] Asia Urrutiay PA-C Work Phone: [facility] 09-09-2022 09:56-0500 Body temperature 98.4 [degF] Alex Cipriano SEO MARKETING SPECIALIST.COMMISSARY AGENT Work Phone: [facility] 09-09-2022 09:56-0500 Body weight 74.57 kg Alex Cipriano SEO MARKETING SPECIALIST.COMMISSARY AGENT Work Phone: [facility] 09-09-2022 09:56-0500 Diastolic blood pressure 84 mm[Hg] Alex Cipriano SEO MARKETING SPECIALIST.COMMISSARY AGENT Work Phone: [facility] 09-09-2022 09:56-0500 Heart rate 104 /min Alex Cipriano SEO MARKETING SPECIALIST.COMMISSARY AGENT Work Phone: [facility] 09-09-2022 09:56-0500 Respiratory rate 20 /min Alex Cipriano SEO MARKETING SPECIALIST.COMMISSARY AGENT Work Phone: [facility] 09-09-2022 09:56-0500 SaO2% (BldA) [Mass fraction] 98 % Alex Cipriano SEO MARKETING SPECIALIST.COMMISSARY AGENT Work Phone: [facility] 09-09-2022 09:56-0500 Systolic blood pressure 110 mm[Hg] Alex Cipriano SEO MARKETING SPECIALIST.COMMISSARY AGENT Work Phone: [facility] 06-11-2022 13:13-0400 Body temperature 98.8 [degF] Little David SEO MARKETING SPECIALIST.COMMISSARY AGENT Work Phone: [facility] 06-11-2022 13:13-0400 Body weight 78.02 kg Little David SEO MARKETING SPECIALIST.COMMISSARY AGENT Work Phone: [facility] 06-11-2022 13:13-0400 Diastolic blood pressure 74 mm[Hg] Little David SEO MARKETING SPECIALIST.COMMISSARY AGENT Work Phone: [facility] 06-11-2022 13:13-0400 Heart rate 100 /min Littletheron Giffordk SEO MARKETING SPECIALIST.COMMISSARY AGENT Work Phone: [facility] 06-11-2022 13:13-0400 Respiratory rate 16 /min Little David SEO MARKETING SPECIALIST.COMMISSARY AGENT Work Phone: [facility] 06-11-2022 13:13-0400 SaO2% (BldA) [Mass fraction] 97 % Littletheron Giffordk SEO MARKETING SPECIALIST.COMMISSARY AGENT Work Phone: [facility] 06-11-2022 13:13-0400 Systolic blood pressure 136 mm[Hg] Little Giffordk SEO MARKETING SPECIALIST.COMMISSARY AGENT Work Phone: [facility] 11-16-2019 13:51-0500 BMI (Body Mass Index) 31.28 kg/m2 [facility] 11-16-2019 13:51-0500 Body Temperature 98.4 [degF] [facility] 11-16-2019 13:51-0500 Body weight 85.28 kg [facility] 11-16-2019 13:51-0500 BP Diastolic 74 mm[Hg] [facility] 11-16-2019 13:51-0500 BP Systolic 102 mm[Hg] [facility] 11-16-2019 13:51-0500 Height 165.1 cm [facility] 11-16-2019 13:51-0500 Pulse (Heart Rate) 98 /min [facility] 11-16-2019 13:51-0500 Pulse Oximetry 98 % [facility] 11-15-2019 14:51-0500 BMI (Body Mass Index) 31.05 kg/m2 [facility] 11-15-2019 14:51-0500 [facility] 11-15-2019 14:51-0500 BP Diastolic 80 mm[Hg] [facility] 11-15-2019 14:51-0500 BP Systolic 128 mm[Hg] [facility] 11-15-2019 14:51-0500 Height 165.1 cm [facility] Encounters Encounter Date Encounter Type Care Provider Facility Start: 12-08-2023 End: 12-08-2023 ambulatory [facility] Facility:[facility] Start: 12-08-2023 End: 12-08-2023 Patient encounter procedure Asia Florentino PA-C Work Phone: [facility] Procedures Date Procedure Procedure Detail Performing Clinician Start: 11-28-2023 STREP A MOLECULAR (POC) Kassandra Alston APRN.COMMISSARY AGENT Work Phone: Start: 01-16-2023 BACTERIAL VAGINOSIS AMPLIFICATION Asia Florentino PA-C Work Phone: Start: 11-30-2022 STREP A MOLECULAR (POC) Kourtney Freeman SEO MARKETING SPECIALIST.COMMISSARY AGENT Work Phone: Start: 02-08-2022 Adult depression scr eening assessment Paris Mccann SEO MARKETING SPECIALIST Work Phone: Start: 01-04-2022 CBC W Auto Different ial panel - Blood Paris Mccann SEO MARKETING SPECIALIST Work Phone: Start: 01-04-2022 Comprehensive metabo lic panel Paris Ministerio-Travis SEO MARKETING SPECIALIST Work Phone: Start: 01-04-2022 GLOMERULAR FILTRATION RATE Parisdagoberto Baez-Travis SEO MARKETING SPECIALIST Work Phone: Start: 01-04-2022 Adult depression scr eening assessment Paris Ministerio-Karir SEO MARKETING SPECIALIST Work Phone: Start: 06-08-2020 25 hydroxy includes fractions if performed Paris Mccann Work Phone: Start: 06-08-2020 Assay of thyroid stimulating hormone tsh Paris Mccann Work Phone: Start: 06-08-2020 Comprehensive metabo lic panel Parisdagoberto Mccann Work Phone: Start: 06-08-2020 Cyanocobalamin vitamin b-12 Paris Ramy Work Phone: Start: 06-08-2020 GLOMERULAR FILTRATION RATE Paris Ramy Work Phone: Start: 06-08-2020 Hemoglobin A1c/Hemoglobin.total in Blood Paris Mccann Work Phone: Start: 06-08-2020 Adult depression scr eening assessment Paris Mccann Start: 11-16-2019 Adult depression scr eening assessment Paris Mccann Start: 11-15-2019 Adult depression scr eening assessment [facility] [place] Start: 11-15-2019 Microscopic observat ion [Identifier] in Cervix by Cyto stain Paris Mccann Start: 11-03-2019 Adult depression scr eening assessment Paulina Corarles Plan of Treatment Date Care Activity Detail Author Start: 11-20-2032 Urine microalbumin profile DTa P,Tdap,Td Vaccine (3 - Td or Tdap) [facility] Start: 05-07-2027 Administration of diphtheria + tetanus + acellular pertussis vaccine DTAP/TDAP/TD VACCINE (2 - Td or Tdap) [facility] Start: 11-15-2024 Screening for malign ant neoplasm of cervix PAP SMEAR [facility] Start: 11-28-2023 End: 02-27-2024 Heterophile Ab [Presence] in Serum by Latex agglutination [facility] Work Phone: Immunizations Immunization Date Immunization Notes Care Provider Jaleel breen 05-07-2017 tetanus toxoid, redu lalo diphtheria toxoid, and acellular pertussis vaccine, adsorbed Paris Mccann SEO MARKETING SPECIALIST Work Phone: [facility] Payers Date Payer Category Payer Unknown [id number] 2019 Medicaid [facility] [id number] 2019-Present [phone] [address] [place] [address] Medicaid [id number] 2019 Medicaid [id number] 2003 Medicaid [id number] 1991 Unknown [id number] 1991 Unknown [id number] 1991 Unknown [id number] Social History Date Type Detail Facility Start: 11-03-2019 End: 06-11-2022 Tobacco smoking status NHIS Current every day smoker [facility] History of tobacco use Cigarette Smoker G [facility] Start: 11-03-2019 End: 02-08-2022 Alcohol intake Ex-drinker (finding) [facility] Start: 1990 Sex Assigned At Not on file G [facility] Start: 06-08-2020 End: 06-11-2022 Tobacco use and exposure [facility] Start: 08-30-2022 End: 09-09-2022 Exposure to SARS-CoV-2 (event) Not sure [facility] Start: 11-03-2019 End: 09-13-2020 Cigarettes smoked current (pack per day) - Reported 1 [facility] Start: 11-30-2020 End: 02-08-2022 History SDOH Financial 5 [facility] Start: 11-30-2020 End: 02-08-2022 History SDOH Food Worry 1 [facility] Start: 11-30-2020 End: 02-08-2022 History SDOH Transport Med 2 [facility] Start: 06-11-2022 End: 12-08-2023 Alcohol intake Current non-drinker of alcohol (finding) [facility] Start: 06-01-2022 End: 06-11-2022 Exposure to SARS-CoV-2 (event) Yes [facility] Start: 1990 Sex Assigned At Female C [facility] Start: 11-30-2022 Tobacco smoking stat us NHIS Ex-smoker [facility] History of tobacco use Current smoker [facility] Start: 11-30-2022 Tobacco use and exposure User of smokeless tobacco [facility] Start: 11-30-2022 Tobacco Comment vape [facility] Start: 09-13-2020 End: 07-18-2023 Tobacco use panel [facility] National Score (1-10 0), lower number is lower risk Not on file [facility] Start: 06-11-2022 Gender identity Identifies as female gender (finding) [facility] Start: 06-11-2022 Sexual orientation Bisexual (finding ) [facility] Clinical Notes 06-11-2022 to 12-08-2023 Asia Florentino PA-C - 12/08/2023 7:40 AM Kassandra Kwan APRN.COMMISSARY AGENT - 11/28/2023 1:54 PM ESTPatient InstructionsMary Comer APRN.[facility] - 07/18/2023 8:27 AM EDTPatient Instructions Note Date & Type Note Facility 12-08-2023 Note HNO ID: [id number] Author: ASIA FLORENTINO PA-C Service: ? Author Type: Physician Intensive [facility]ulance Paramedic Type: Progress Notes Filed: 12/08/2023 07:45 Note Text: This note was created using [employer]. Subjective Dk Vogt is a 33 year old female. HPI Presents with sore throat, fever, headache over the past month. She was seen November 28 and had a negative mono and strep test. She states last fever was yesterday of 100. She did notice some postnasal drip starting yesterday. No cough. No chest pain or shortness of breath. No ear pain. She rates her sore throat about a 5. No new sexual partners. She has been with 1 female partner for a year. No diarrhea or vomiting. Review of Systems Constitutional: Positive for chills, fatigue and fever. HENT: Positive for postnasal drip and sore throat. Negative for congestion and ear pain. Respiratory: Negative for cough, shortness of breath and wheezing. Cardiovascular: Negative. Gastrointestinal: Negative. Genitourinary: Negative. Musculoskeletal: Negative. Neurological: Positive for headaches. All other systems reviewed and are negative. PAST MEDICAL HISTORY Diagnosis Date Anxiety Depression depression Rh negative state in antepartum period Current Outpatient Medications Medication Sig Dispense Refill CAPLYTA 10.5 mg capsule amoxicillin-clavulanate potassium (AUGMENTIN) 875-125 mg per tablet Take 1 tablet by mouth two times a day for 7 days. 14 tablet 0 fluticasone (FLONASE) 50 mcg/actuation nasal spray Use 2 Sprays in each nostril once daily. Rinse mouth after use. (Patient not taking: Reported on 07/18/2023) 1 Each 0 cetirizine-pseudoephedrine (ZYRTEC-D) 5-120 mg per tablet Take 1 tablet by mouth twice daily. (Patient not taking: Reported on 07/18/2023) 10 tablet 0 metFORMIN (GLUCOPHAGE) 500 mg tablet Take 500 mg by mouth once daily. (Patient not taking: Reported on 01/16/2023) albuterol HFA (PROAIR HFA) 90 mcg/actuation inhaler Inhale 2 Puffs as instructed every 4 hours as needed. (Patient not taking: Reported on 07/18/2023) 18 g 0 topiramate (TOPAMAX) 100 mg tablet TAKE 1/2 (ONE-HALF) TABLET BY MOUTH DAILY FOR 7 DAYS, THEN INCREASE TO 1 TABLET DAILY. (Patient not taking: Reported on 06/11/2022) Clindamycin Phosphate (CLEOCIN T) 1 % lotion APPLY LOTION TOPICALLY TO AFFECTED AREA TWICE DAILY 14 DAYS (Patient not taking: No sig reported) topiramate (TOPAMAX) 25 mg tablet Take 25 mg by mouth daily at bedtime. (Patient not taking: Reported on 03/29/2021) 1 triamcinolone acetonide (KENALOG) 0.1 % cream Apply 1 application to affected area three times daily. Apply sparingly to area for rash/itching. (Patient not taking: Reported on 03/29/2021) 80 g 0 Etonogestrel-Ethinyl Estradiol (NUVARING) 0.12-0.015 mg/24 hr vaginal ring Use 1 Each vaginally as directed. Use as directed. (Patient not taking: Reported on 03/10/2019) 1 Each 14 acetaminophen (TYLENOL) 325 mg tablet Take 650 mg by mouth every 6 hours as needed. (Patient not taking: Reported on 12/08/2023) VIT/IRON FUM/FOLIC AC ( VITAMIN ORAL) Take by mouth. (Patient not taking: Reported on 03/29/2021) No current facility-administered medications for this visit. PAST SURGICAL HISTORY Procedure Laterality Date EXTRACTION, ERUPTED TOOTH OR EXPOSED ROOT (ELEVATION AND/OR FORCEPS REMOVAL) No family history on file. Social History Tobacco Use Smoking status: Former Types: Cigarettes Smokeless tobacco: Current Tobacco comments: vape Substance Use Topics Alcohol use: No Drug use: No Objective BP 122/68 Pulse 82 Temp 36.5 ?C (97.7 ?F) Resp 16 Wt 72.6 kg (160 lb) LMP 11/28/2023 (Exact Date) SpO2 99% BMI 26.63 kg/m? Physical Exam Vitals reviewed. Constitutional: Appearance: Normal appearance. HENT: Head: Normocephalic and atraumatic. Right Ear: Tympanic membrane, ear canal and external ear normal. Left Ear: Tympanic membrane, ear canal and external ear normal. Nose: Nose normal. Mouth/Throat: Mouth: Mucous membranes are moist. Pharynx: Pharyngeal swelling and posterior oropharyngeal erythema present. No oropharyngeal exudate or uvula swelling. Tonsils: No tonsillar exudate or tonsillar abscesses. 1+ on the right. 1+ on the left. Neck: Comments: Mass in left submandibular area Cardiovascular: Rate and Rhythm: Normal rate and regular rhythm. Heart sounds: Normal heart sounds. Pulmonary: Effort: Pulmonary effort is normal. Breath sounds: Normal breath sounds. Musculoskeletal: Cervical back: Neck supple. Skin: General: Skin is warm and dry. Neurological: Mental Status: She is alert. Assessment and Plan ASSESSMENT/PLAN: 1. Acute pharyngitis, unspecified etiology - ICD9: 462, ICD10: J02.9 Patient does have a mass in the submandibular area that she is already had worked up with CT, ultrasound and biopsy. She states it was just a benign cyst. She has had this sore throat fevers off and o (more content not included)... [facility] 12-08-2023 History of Presen t illness Narrative This note was created using [employer]. Subjective Dk Vogt is a 33 year old female. HPI Presents with sore throat, fever, headache over the past month. She was seen November 28 and had a negative mono and strep test. She states last fever was yesterday of 100. She did notice some postnasal drip starting yesterday. No cough. No chest pain or shortness of breath. No ear pain. She rates her sore throat about a 5. No new sexual partners. She has been with 1 female partner for a year. No diarrhea or vomiting. Review of Systems Constitutional: Positive for chills, fatigue and fever. HENT: Positive for postnasal drip and sore throat. Negative for congestion and ear pain. Respiratory: Negative for cough, shortness of breath and wheezing. Cardiovascular: Negative. Gastrointestinal: Negative. Genitourinary: Negative. Musculoskeletal: Negative. Neurological: Positive for headaches. All other systems reviewed and are negative. PAST MEDICAL HISTORY Diagnosis Date Anxiety Depression depression Rh negative state in antepartum period Current Outpatient Medications Medication Sig Dispense Refill CAPLYTA 10.5 mg capsule amoxicillin-clavulanate potassium (AUGMENTIN) 875-125 mg per tablet Take 1 tablet by mouth two times a day for 7 days. 14 tablet 0 fluticasone (FLONASE) 50 mcg/actuation nasal spray Use 2 Sprays in each nostril once daily. Rinse mouth after use. (Patient not taking: Reported on 07/18/2023) 1 Each 0 cetirizine-pseudoephedrine (ZYRTEC-D) 5-120 mg per tablet Take 1 tablet by mouth twice daily. (Patient not taking: Reported on 07/18/2023) 10 tablet 0 metFORMIN (GLUCOPHAGE) 500 mg tablet Take 500 mg by mouth once daily. (Patient not taking: Reported on 01/16/2023) albuterol HFA (PROAIR HFA) 90 mcg/actuation inhaler Inhale 2 Puffs as instructed every 4 hours as needed. (Patient not taking: Reported on 07/18/2023) 18 g 0 topiramate (TOPAMAX) 100 mg tablet TAKE 1/2 (ONE-HALF) TABLET BY MOUTH DAILY FOR 7 DAYS, THEN INCREASE TO 1 TABLET DAILY. (Patient not taking: Reported on 06/11/2022) Clindamycin Phosphate (CLEOCIN T) 1 % lotion APPLY LOTION TOPICALLY TO AFFECTED AREA TWICE DAILY 14 DAYS (Patient not taking: No sig reported) topiramate (TOPAMAX) 25 mg tablet Take 25 mg by mouth daily at bedtime. (Patient not taking: Reported on 03/29/2021) 1 triamcinolone acetonide (KENALOG) 0.1 % cream Apply 1 application to affected area three times daily. Apply sparingly to area for rash/itching. (Patient not taking: Reported on 03/29/2021) 80 g 0 Etonogestrel-Ethinyl Estradiol (NUVARING) 0.12-0.015 mg/24 hr vaginal ring Use 1 Each vaginally as directed. Use as directed. (Patient not taking: Reported on 03/10/2019) 1 Each 14 acetaminophen (TYLENOL) 325 mg tablet Take 650 mg by mouth every 6 hours as needed. (Patient not taking: Reported on 12/08/2023) VIT/IRON FUM/FOLIC AC ( VITAMIN ORAL) Take by mouth. (Patient not taking: Reported on 03/29/2021) No current facility-administered medications for this visit. PAST SURGICAL HISTORY Procedure Laterality Date EXTRACTION, ERUPTED TOOTH OR EXPOSED ROOT (ELEVATION AND/OR FORCEPS REMOVAL) No family history on file. Social History Tobacco Use Smoking status: Former Types: Cigarettes Smokeless tobacco: Current Tobacco comments: vape Substance Use Topics Alcohol use: No Drug use: No Objective BP 122/68 Pulse 82 Temp 36.5 C (97.7 F) Resp 16 Wt 72.6 kg (160 lb) LMP 11/28/2023 (Exact Date) SpO2 99% BMI 26.63 kg/m Physical Exam Vitals reviewed. Constitutional: Appearance: Normal appearance. HENT: Head: Normocephalic and atraumatic. Right Ear: Tympanic membrane, ear canal and external ear normal. Left Ear: Tympanic membrane, ear canal and external ear normal. Nose: Nose normal. Mouth/Throat: Mouth: Mucous membranes are moist. Pharynx: Pharyngeal swelling and posterior oropharyngeal erythema present. No oropharyngeal exudate or uvula swelling. Tonsils: No tonsillar exudate or tonsillar abscesses. 1+ on the right. 1+ on the left. Neck: Comments: Mass in left submandibular area Cardiovascular: Rate and Rhythm: Normal rate and regular rhythm. Heart sounds: Normal heart sounds. Pulmonary: Effort: Pulmonary effort is normal. Breath sounds: Normal breath sounds. Musculoskeletal: Cervical back: Neck supple. Skin: General: Skin is warm and dry. Neurological: Mental Status: She is alert. Assessment and Plan ASSESSMENT/PLAN: 1. Acute pharyngitis, unspecified etiology - ICD9: 462, ICD10: J02.9 Patient does have a mass in the submandibular area that she is already had worked up with CT, ultrasound and biopsy. She states it was just a benign cyst. She has had this sore throat fevers off and on and not feeling well for a month. I did review the mono which was negative on the and strep testing which was negative. I will treat empirically with Augmentin for 7 days. She does have an ENT appointment at [facility] in 2 weeks. Also did recommend establishing with primary care in [place]. Patient voiced understanding. Asia Florentino PA-C documented in this encounter [facility] 11-28-2023 Note HNO ID: [id number] Author: KASSANDRA ALSTON APRN.COMMISSARY AGENT Service: ? Author Type: Nurse Practitioner Type: Progress Notes Filed: 11/28/2023 14:42 Note Text: Subjective HPI Nontoxic-appearing female presents urgent care chief complaint sore throat fever. Duration of symptoms transient over the last couple weeks. Associated symptoms listed above. Presents today for evaluation. Concerned about possible strep throat. Has not used any OTC medications today. Afebrile last 24 hours. No known sick contacts. Denies any fever body aches chills productive cough chest pain shortness of breath pleuritic pain hemoptysis nausea vomiting abdominal pain change in bowel or bladder habits. Past medical history prescription medication use and allergies reviewed. .Patient presents with: Sore Throat: Fever x couple weeks PAST MEDICAL HISTORY Diagnosis Date Anxiety Depression depression Rh negative state in antepartum period PAST SURGICAL HISTORY Procedure Laterality Date EXTRACTION, ERUPTED TOOTH OR EXPOSED ROOT (ELEVATION AND/OR FORCEPS REMOVAL) ALLERGIES Codeine, Fluoxetine, and Nickel MEDICATIONS CAPLYTA 10.5 mg capsule fluticasone (FLONASE) 50 mcg/actuation nasal spray Use 2 Sprays in each nostril once daily. Rinse mouth after use. (Patient not taking: Reported on 07/18/2023) cetirizine-pseudoephedrine (ZYRTEC-D) 5-120 mg per tablet Take 1 tablet by mouth twice daily. (Patient not taking: Reported on 07/18/2023) metFORMIN (GLUCOPHAGE) 500 mg tablet Take 500 mg by mouth once daily. (Patient not taking: Reported on 01/16/2023) albuterol HFA (PROAIR HFA) 90 mcg/actuation inhaler Inhale 2 Puffs as instructed every 4 hours as needed. (Patient not taking: Reported on 07/18/2023) topiramate (TOPAMAX) 100 mg tablet TAKE 1/2 (ONE-HALF) TABLET BY MOUTH DAILY FOR 7 DAYS, THEN INCREASE TO 1 TABLET DAILY. (Patient not taking: Reported on 06/11/2022) Clindamycin Phosphate (CLEOCIN T) 1 % lotion APPLY LOTION TOPICALLY TO AFFECTED AREA TWICE DAILY 14 DAYS (Patient not taking: No sig reported) topiramate (TOPAMAX) 25 mg tablet Take 25 mg by mouth daily at bedtime. (Patient not taking: Reported on 03/29/2021) triamcinolone acetonide (KENALOG) 0.1 % cream Apply 1 application to affected area three times daily. Apply sparingly to area for rash/itching. (Patient not taking: Reported on 03/29/2021) Etonogestrel-Ethinyl Estradiol (NUVARING) 0.12-0.015 mg/24 hr vaginal ring Use 1 Each vaginally as directed. Use as directed. (Patient not taking: Reported on 03/10/2019) acetaminophen (TYLENOL) 325 mg tablet Take 650 mg by mouth every 6 hours as needed. VIT/IRON FUM/FOLIC AC ( VITAMIN ORAL) Take by mouth. (Patient not taking: Reported on 03/29/2021) History reviewed. No pertinent family history. Social History Tobacco Use Smoking status: Former Types: Cigarettes Smokeless tobacco: Current Tobacco comments: vape Substance Use Topics Alcohol use: No Drug use: No BP 110/71 Pulse 77 Temp 36.6 ?C (97.9 ?F) Resp 18 Wt 72.1 kg (159 lb) LMP 11/28/2023 (Exact Date) SpO2 100% No BMI 26.46 kg/m? Review of Systems Constitutional: Negative for chills, fever and malaise/fatigue. HENT: Positive for sore throat. Negative for congestion, ear discharge, ear pain and sinus pain. Eyes: Negative for blurred vision, pain, discharge and redness. Respiratory: Negative for cough, hemoptysis, sputum production, shortness of breath, wheezing and stridor. Cardiovascular: Negative for chest pain. Gastrointestinal: Negative for abdominal pain, diarrhea, nausea and vomiting. Musculoskeletal: Negative for myalgias. Skin: Negative for itching and rash. Neurological: Negative for dizziness and headaches. Objective Physical Exam Constitutional: General: She is not in acute distress. Appearance: She is not diaphoretic. HENT: Head: Normocephalic. Jaw: No trismus, tenderness, swelling or pain on movement. Mouth/Throat: Lips: [place]. Mouth: Mucous membranes are moist. Pharynx: Oropharynx is clear. Uvula midline. Posterior oropharyngeal erythema present. No pharyngeal swelling, oropharyngeal exudate or uvula swelling. Tonsils: No tonsillar abscesses. Eyes: Conjunctiva/sclera: Conjunctivae normal. Pupils: Pupils are equal, round, and reactive to light. Cardiovascular: Rate and Rhythm: Normal rate and regular rhythm. Heart sounds: Normal heart sounds. Pulmonary: Effort: Pulmonary effort is normal. No tachypnea, accessory muscle usage or respiratory distress. Breath sounds: Normal breath sounds. No stridor. No wheezing, rhonchi or rales. Abdominal: General: There is no distension. Palpations: Abdomen is soft. Tenderness: There is no abdominal tenderness. There is no guarding or rebound. Musculoskeletal: Cervical back: Normal range of motion and neck supple. No edema, erythema, rigidity or tenderness. No pain with movement. (more content not included)... [facility] 11-28-2023 History of Presen t illness Narrative Subjective HPI Nontoxic-appearing female presents urgent care chief complaint sore throat fever. Duration of symptoms transient over the last couple weeks. Associated symptoms listed above. Presents today for evaluation. Concerned about possible strep throat. Has not used any OTC medications today. Afebrile last 24 hours. No known sick contacts. Denies any fever body aches chills productive cough chest pain shortness of breath pleuritic pain hemoptysis nausea vomiting abdominal pain change in bowel or bladder habits. Past medical history prescription medication use and allergies reviewed. .Patient presents with: Sore Throat: Fever x couple weeks PAST MEDICAL HISTORY Diagnosis Date Anxiety Depression depression Rh negative state in antepartum period PAST SURGICAL HISTORY Procedure Laterality Date EXTRACTION, ERUPTED TOOTH OR EXPOSED ROOT (ELEVATION AND/OR FORCEPS REMOVAL) ALLERGIES Codeine, Fluoxetine, and Nickel MEDICATIONS CAPLYTA 10.5 mg capsule fluticasone (FLONASE) 50 mcg/actuation nasal spray Use 2 Sprays in each nostril once daily. Rinse mouth after use. (Patient not taking: Reported on 07/18/2023) cetirizine-pseudoephedrine (ZYRTEC-D) 5-120 mg per tablet Take 1 tablet by mouth twice daily. (Patient not taking: Reported on 07/18/2023) metFORMIN (GLUCOPHAGE) 500 mg tablet Take 500 mg by mouth once daily. (Patient not taking: Reported on 01/16/2023) albuterol HFA (PROAIR HFA) 90 mcg/actuation inhaler Inhale 2 Puffs as instructed every 4 hours as needed. (Patient not taking: Reported on 07/18/2023) topiramate (TOPAMAX) 100 mg tablet TAKE 1/2 (ONE-HALF) TABLET BY MOUTH DAILY FOR 7 DAYS, THEN INCREASE TO 1 TABLET DAILY. (Patient not taking: Reported on 06/11/2022) Clindamycin Phosphate (CLEOCIN T) 1 % lotion APPLY LOTION TOPICALLY TO AFFECTED AREA TWICE DAILY 14 DAYS (Patient not taking: No sig reported) topiramate (TOPAMAX) 25 mg tablet Take 25 mg by mouth daily at bedtime. (Patient not taking: Reported on 03/29/2021) triamcinolone acetonide (KENALOG) 0.1 % cream Apply 1 application to affected area three times daily. Apply sparingly to area for rash/itching. (Patient not taking: Reported on 03/29/2021) Etonogestrel-Ethinyl Estradiol (NUVARING) 0.12-0.015 mg/24 hr vaginal ring Use 1 Each vaginally as directed. Use as directed. (Patient not taking: Reported on 03/10/2019) acetaminophen (TYLENOL) 325 mg tablet Take 650 mg by mouth every 6 hours as needed. VIT/IRON FUM/FOLIC AC ( VITAMIN ORAL) Take by mouth. (Patient not taking: Reported on 03/29/2021) History reviewed. No pertinent family history. Social History Tobacco Use Smoking status: Former Types: Cigarettes Smokeless tobacco: Current Tobacco comments: vape Substance Use Topics Alcohol use: No Drug use: No BP 110/71 Pulse 77 Temp 36.6 C (97.9 F) Resp 18 Wt 72.1 kg (159 lb) LMP 11/28/2023 (Exact Date) SpO2 100% No BMI 26.46 kg/m Review of Systems Constitutional: Negative for chills, fever and malaise/fatigue. HENT: Positive for sore throat. Negative for congestion, ear discharge, ear pain and sinus pain. Eyes: Negative for blurred vision, pain, discharge and redness. Respiratory: Negative for cough, hemoptysis, sputum production, shortness of breath, wheezing and stridor. Cardiovascular: Negative for chest pain. Gastrointestinal: Negative for abdominal pain, diarrhea, nausea and vomiting. Musculoskeletal: Negative for myalgias. Skin: Negative for itching and rash. Neurological: Negative for dizziness and headaches. Objective Physical Exam Constitutional: General: She is not in acute distress. Appearance: She is not diaphoretic. HENT: Head: Normocephalic. Jaw: No trismus, tenderness, swelling or pain on movement. Mouth/Throat: Lips: [place]. Mouth: Mucous membranes are moist. Pharynx: Oropharynx is clear. Uvula midline. Posterior oropharyngeal erythema present. No pharyngeal swelling, oropharyngeal exudate or uvula swelling. Tonsils: No tonsillar abscesses. Eyes: Conjunctiva/sclera: Conjunctivae normal. Pupils: Pupils are equal, round, and reactive to light. Cardiovascular: Rate and Rhythm: Normal rate and regular rhythm. Heart sounds: Normal heart sounds. Pulmonary: Effort: Pulmonary effort is normal. No tachypnea, accessory muscle usage or respiratory distress. Breath sounds: Normal breath sounds. No stridor. No wheezing, rhonchi or rales. Abdominal: General: There is no distension. Palpations: Abdomen is soft. Tenderness: There is no abdominal tenderness. There is no guarding or rebound. Musculoskeletal: Cervical back: Normal range of motion and neck supple. No edema, erythema, rigidity or tenderness. No pain with movement. Normal range of motion. Lymphadenopathy: Cervical: No cervical adenopathy. Skin: General: Skin is warm and dry. Neurological: Mental Status: She is alert and oriented to person, place, and time. ASSESSMENT/PLAN: 1. Sore throat - ICD9: 462, ICD10: J02.9 - STREP A MOLECULAR (POC) - MONOTEST, INFECTIOUS MONO Diagnosed with pharyngitis. Strep test was negative. Will test for mono. If negative recommend following up with PCP if symptoms persist. Patient was educated on supportive therapies. Patient will follow up with primary care provider as needed. Patient was instructed to immediately proceed to emergency room for any new, worsening, or symptoms lasting longer than anticipated. The patient's clinical presentation is otherwise unremarkable at this time. Based on exam and clinical finding, the patient is stable for discharge. Plan of care was discussed with patient. Patient verbalizes understanding and agrees to plan of care. This note was generated using [employer] software. It may contain errors in wording, punctuation, or spelling. Kassandra Alston APRN.COMMISSARY AGENT documented in this encounter [facility] 07-28-2023 Note HNO ID: [id number] Author: Little Hernandez APRN.COMMISSARY AGENT Service: ? Author Type: Nurse Practitioner Type: Progress Notes Filed: 07/28/2023 3:22 PM Note Text: Subjective The history is provided by the patient. No specialized language instructor was used. HPI Dk Vogt is a 33 year old female who presents today for CC of sore throat and continued post nasal drainage that started 2 weeks ago. She was provided a prescription for augmentin, but did not use it and now is . She is also having right ear discomfort. She has used no treatment other than otc tylenol and cold medications. BP 122/80 Pulse 72 Temp 36.3 ?C (97.3 ?F) Resp 16 Wt 76.2 kg (168 lb) LMP 12/28/2022 (Approximate) SpO2 99% BMI 27.96 kg/m? Social History Tobacco Use Smoking status: Former Types: Cigarettes Smokeless tobacco: Current Tobacco comments: vape Substance Use Topics Alcohol use: No Drug use: No PAST MEDICAL HISTORY Diagnosis Date Anxiety Depression depression Rh negative state in antepartum period I have confirmed and edited as necessary, the [facility] Review of Systems Constitutional: Negative for chills and fever. HENT: Positive for sore throat. Negative for congestion, ear pain and sinus pain. Respiratory: Negative for cough, sputum production, shortness of breath and wheezing. Cardiovascular: Negative for chest pain. Musculoskeletal: Negative for myalgias. Neurological: Negative for headaches. Objective Physical Exam Vitals and nursing note reviewed. HENT: Head: Normocephalic and atraumatic. Right Ear: Ear canal and external ear normal. A middle ear effusion (cloudy, yellow) is present. Tympanic membrane is injected and bulging. Left Ear: Tympanic membrane, ear canal and external ear normal. Nose: No mucosal edema, congestion or rhinorrhea. Right Sinus: No maxillary sinus tenderness or frontal sinus tenderness. Left Sinus: No maxillary sinus tenderness or frontal sinus tenderness. Mouth/Throat: Pharynx: Uvula midline. No oropharyngeal exudate or posterior oropharyngeal erythema. Cardiovascular: Rate and Rhythm: Normal rate and regular rhythm. Heart sounds: Normal heart sounds. Pulmonary: Effort: Pulmonary effort is normal. Breath sounds: Normal breath sounds. Lymphadenopathy: Head: Right side of head: No submental, submandibular or tonsillar adenopathy. Left side of head: No submental, submandibular or tonsillar adenopathy. Cervical: No cervical adenopathy. Skin: General: Skin is warm and dry. Neurological: Mental Status: She is alert. Psychiatric: Mood and Affect: Affect normal. ASSESSMENT/PLAN: 1. Sore throat - ICD9: 462, ICD10: J02.9 (primary diagnosis) - suspect referred pain, drainage - Group A strep molecular testing negative - STREP A MOLECULAR (POC) 2. Right ear pain - ICD9: 388.70, ICD10: H92.01 WOLF, treat with amoxicillin for a week Tylenol/ibuprofen prn Follow up with ent if no improvement Diagnosis and treatment plan were discussed and questions were answered to the patient's satisfaction. Pt acknowledged understanding of concepts and follow up plan. Specific signs and symptoms that would indicate the need for higher level of care were discussed in detail warranting prompt ER evaluation. Little Hernandez APRN.COMMISSARY AGENT [facility] 07-18-2023 Note HNO ID: [id number] Author: Mary Comer APRN.STEPHEN Service: ? Author Type: Nurse Practitioner Type: Progress Notes Filed: 07/18/2023 9:28 AM Note Text: This note was created using [employer]. Subjective Dk Vogt is a 33 year old female. Patient presents with five days of sore throat, nasal congestion, headaches, and fatigue. She denies fever, shortness of breath, nausea, or ear pain. She reports that her sore throat has almost resolved, her congestion is the primary concern. She has taken ibuprofen and tylenol with moderate relief of her headaches. 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 The history is provided by the patient. Review of Systems Constitutional: Positive for activity change and fatigue. Negative for chills, diaphoresis and fever. HENT: Positive for congestion, sinus pressure, sinus pain and sore throat. Negative for ear discharge and ear pain. Respiratory: Positive for cough. Negative for shortness of breath and wheezing. Cardiovascular: Negative for chest pain. Gastrointestinal: Negative for abdominal pain, diarrhea, nausea and vomiting. Neurological: Positive for headaches. All other systems reviewed and are negative. Objective BP 119/79 Pulse 88 Temp 36.7 ?C (98 ?F) Resp 18 Wt 75.8 kg (167 lb 3.2 oz) LMP 12/28/2022 (Approximate) SpO2 99% BMI 27.82 kg/m? PAST MEDICAL HISTORY Diagnosis Date Anxiety Depression depression Rh negative state in antepartum period PAST SURGICAL HISTORY Procedure Laterality Date EXTRACTION, ERUPTED TOOTH OR EXPOSED ROOT (ELEVATION AND/OR FORCEPS REMOVAL) ALLERGIES Codeine, Fluoxetine, and Nickel MEDICATIONS acetaminophen (TYLENOL) 325 mg tablet Take 650 mg by mouth every 6 hours as needed. albuterol HFA (PROAIR HFA) 90 mcg/actuation inhaler Inhale 2 Puffs as instructed every 4 hours as needed. (Patient not taking: Reported on 07/18/2023) amoxicillin-clavulanic acid (AUGMENTIN) 875-125 mg per tablet Take 1 tablet by mouth two times a day for 7 days. ARIPiprazole (ABILIFY) 2 mg tablet Take 2 mg by mouth once daily. cetirizine-pseudoephedrine (ZYRTEC-D) 5-120 mg per tablet Take 1 tablet by mouth twice daily. (Patient not taking: Reported on 07/18/2023) Clindamycin Phosphate (CLEOCIN T) 1 % lotion APPLY LOTION TOPICALLY TO AFFECTED AREA TWICE DAILY 14 DAYS (Patient not taking: No sig reported) Etonogestrel-Ethinyl Estradiol (NUVARING) 0.12-0.015 mg/24 hr vaginal ring Use 1 Each vaginally as directed. Use as directed. (Patient not taking: Reported on 03/10/2019) fluticasone (FLONASE) 50 mcg/actuation nasal spray Use 2 Sprays in each nostril once daily. Rinse mouth after use. (Patient not taking: Reported on 07/18/2023) metFORMIN (GLUCOPHAGE) 500 mg tablet Take 500 mg by mouth once daily. (Patient not taking: Reported on 01/16/2023) VIT/IRON FUM/FOLIC AC ( VITAMIN ORAL) Take by mouth. (Patient not taking: Reported on 03/29/2021) REXULTI 1 mg tablet Take 1 mg by mouth once daily. (Patient not taking: Reported on 06/11/2022) topiramate (TOPAMAX) 100 mg tablet TAKE 1/2 (ONE-HALF) TABLET BY MOUTH DAILY FOR 7 DAYS, THEN INCREASE TO 1 TABLET DAILY. (Patient not taking: Reported on 06/11/2022) topiramate (TOPAMAX) 25 mg tablet Take 25 mg by mouth daily at bedtime. (Patient not taking: Reported on 03/29/2021) triamcinolone acetonide (KENALOG) 0.1 % cream Apply 1 application to affected area three times daily. Apply sparingly to area for rash/itching. (Patient not taking: Reported on 03/29/2021) No family history on file. Social History Tobacco Use Smoking status: Former Types: Cigarettes Smokeless tobacco: Current Tobacco comments: vape Substance Use Topics Alcohol use: No Drug use: No Physical Exam Vitals reviewed. Constitutional: General: She is not in acute distress. Appearance: Normal appearance. She is normal weight. She is ill-appearing. She is not toxic-appearing or diaphoretic. HENT: Right Ear: Tympanic membrane, ear canal and external ear normal. No swelling or tenderness. There is no impacted cerumen. Tympanic membrane is not perforated, erythematous, retracted or bulging. Left Ear: Tympanic membrane, ear canal and external ear normal. No swelling or tenderness. There is no impacted cerumen. Tympanic membrane is not perforated, erythematous, retracted or bulging. Nose: Congestion present. No rhinorrhea. Right Turbinates: Enlarged and swollen. Left Turbinates: Not enlarged or swollen. Right Sinus: No maxillary sinus tenderness or frontal sinus tenderness. Left Sinus: No maxillary sinus tenderness or frontal sinus tenderness. Mouth/Throat: Mouth: Mucous membranes are moist. Pharynx: Oropharynx is clear. Uvula midline. Posterior oropharyngeal erythema present. No pharyngeal swelling, oropharyngeal exudate or uvula swelling. Cardiovascular: Rate (more content not included)... [facility] [facility] 07[facility] Instructions Mary Comer APRN.COMMISSARY AGENT - 07/18/2023 9:27 AM EDT ASSESSMENT/PLAN: 1. Upper respiratory virus - ICD9: 465.9, ICD10: J06.9 - Discussed viral etiology and rationale for treatment. - Rx for Augmentin sent to pharmacy. Patient educated that she should only utilize antibiotic if her symptoms persist for the next 2 days as her current illness is likely viral - Offered COVID testing, patient declined - Symptomatic treatment with prn analgesia - Supportive care with fluids and rest - The patient may also use OTC decongestants prn, OTC cough and cold meds as needed, and warm salt water gargles, throat lozenges and/or OTC throat spray as needed. - Follow up in 3-5 days if symptoms persist or sooner if worsening of symptoms E [facility] RN Student TEACHING PROVIDER (Physician/PA/SEO MARKETING SPECIALIST) NOTE OF PERSONAL INVOLVEMENT IN CARE: I have personally seen and examined the patient and performed the medical decision-making components. I have reviewed the Advanced Practice Registered Nurse (SEO MARKETING SPECIALIST) Student's documentation and verified the findings in the note as written. Any additions or changes are noted in bold/italics. Signature: Mary Comer Date: 07/18/2023 Time: 9:26 AM documented in this encounter [facility] 07-18-2023 History of Presen t illness Narrative This note was created using SendTask. Subjective Dk Vogt is a 33 year old female. Patient presents with five days of sore throat, nasal congestion, headaches, and fatigue. She denies fever, shortness of breath, nausea, or ear pain. She reports that her sore throat has almost resolved, her congestion is the primary concern. She has taken ibuprofen and tylenol with moderate relief of her headaches. 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 The history is provided by the patient. Review of Systems Constitutional: Positive for activity change and fatigue. Negative for chills, diaphoresis and fever. HENT: Positive for congestion, sinus pressure, sinus pain and sore throat. Negative for ear discharge and ear pain. Respiratory: Positive for cough. Negative for shortness of breath and wheezing. Cardiovascular: Negative for chest pain. Gastrointestinal: Negative for abdominal pain, diarrhea, nausea and vomiting. Neurological: Positive for headaches. All other systems reviewed and are negative. Objective BP 119/79 Pulse 88 Temp 36.7 C (98 F) Resp 18 Wt 75.8 kg (167 lb 3.2 oz) LMP 12/28/2022 (Approximate) SpO2 99% BMI 27.82 kg/m PAST MEDICAL HISTORY Diagnosis Date Anxiety Depression depression Rh negative state in antepartum period PAST SURGICAL HISTORY Procedure Laterality Date EXTRACTION, ERUPTED TOOTH OR EXPOSED ROOT (ELEVATION AND/OR FORCEPS REMOVAL) ALLERGIES Codeine, Fluoxetine, and Nickel MEDICATIONS acetaminophen (TYLENOL) 325 mg tablet Take 650 mg by mouth every 6 hours as needed. albuterol HFA (PROAIR HFA) 90 mcg/actuation inhaler Inhale 2 Puffs as instructed every 4 hours as needed. (Patient not taking: Reported on 07/18/2023) amoxicillin-clavulanic acid (AUGMENTIN) 875-125 mg per tablet Take 1 tablet by mouth two times a day for 7 days. ARIPiprazole (ABILIFY) 2 mg tablet Take 2 mg by mouth once daily. cetirizine-pseudoephedrine (ZYRTEC-D) 5-120 mg per tablet Take 1 tablet by mouth twice daily. (Patient not taking: Reported on 07/18/2023) Clindamycin Phosphate (CLEOCIN T) 1 % lotion APPLY LOTION TOPICALLY TO AFFECTED AREA TWICE DAILY 14 DAYS (Patient not taking: No sig reported) Etonogestrel-Ethinyl Estradiol (NUVARING) 0.12-0.015 mg/24 hr vaginal ring Use 1 Each vaginally as directed. Use as directed. (Patient not taking: Reported on 03/10/2019) fluticasone (FLONASE) 50 mcg/actuation nasal spray Use 2 Sprays in each nostril once daily. Rinse mouth after use. (Patient not taking: Reported on 07/18/2023) metFORMIN (GLUCOPHAGE) 500 mg tablet Take 500 mg by mouth once daily. (Patient not taking: Reported on 01/16/2023) VIT/IRON FUM/FOLIC AC ( VITAMIN ORAL) Take by mouth. (Patient not taking: Reported on 03/29/2021) REXULTI 1 mg tablet Take 1 mg by mouth once daily. (Patient not taking: Reported on 06/11/2022) topiramate (TOPAMAX) 100 mg tablet TAKE 1/2 (ONE-HALF) TABLET BY MOUTH DAILY FOR 7 DAYS, THEN INCREASE TO 1 TABLET DAILY. (Patient not taking: Reported on 06/11/2022) topiramate (TOPAMAX) 25 mg tablet Take 25 mg by mouth daily at bedtime. (Patient not taking: Reported on 03/29/2021) triamcinolone acetonide (KENALOG) 0.1 % cream Apply 1 application to affected area three times daily. Apply sparingly to area for rash/itching. (Patient not taking: Reported on 03/29/2021) No family history on file. Social History Tobacco Use Smoking status: Former Types: Cigarettes Smokeless tobacco: Current Tobacco comments: vape Substance Use Topics Alcohol use: No Drug use: No Physical Exam Vitals reviewed. Constitutional: General: She is not in acute distress. Appearance: Normal appearance. She is normal weight. She is ill-appearing. She is not toxic-appearing or diaphoretic. HENT: Right Ear: Tympanic membrane, ear canal and external ear normal. No swelling or tenderness. There is no impacted cerumen. Tympanic membrane is not perforated, erythematous, retracted or bulging. Left Ear: Tympanic membrane, ear canal and external ear normal. No swelling or tenderness. There is no impacted cerumen. Tympanic membrane is not perforated, erythematous, retracted or bulging. Nose: Congestion present. No rhinorrhea. Right Turbinates: Enlarged and swollen. Left Turbinates: Not enlarged or swollen. Right Sinus: No maxillary sinus tenderness or frontal sinus tenderness. Left Sinus: No maxillary sinus tenderness or frontal sinus tenderness. Mouth/Throat: Mouth: Mucous membranes are moist. Pharynx: Oropharynx is clear. Uvula midline. Posterior oropharyngeal erythema present. No pharyngeal swelling, oropharyngeal exudate or uvula swelling. Cardiovascular: Rate and Rhythm: Normal rate and regular rhythm. Pulmonary: Effort: Pulmonary effort is normal. No accessory muscle usage or respiratory distress. Breath sounds: Normal breath sounds. Neurological: General: No focal deficit present. Mental Status: She is alert and oriented to person, place, and time. Mental status is at baseline. Psychiatric: Mood and Affect: Mood normal. Behavior: Behavior normal. Thought Content: Thought content normal. Judgment: Judgment normal. Assessment and Plan ASSESSMENT/PLAN: 1. Upper respiratory virus - ICD9: 465.9, ICD10: J06.9 - Discussed viral etiology and rationale for treatment. - Rx for Augmentin sent to pharmacy. Patient educated that she should only utilize antibiotic if her symptoms persist for the next 2 days as her current illness is likely viral - Offered COVID testing, patient declined - Symptomatic treatment with prn analgesia - Supportive care with fluids and rest - The patient may also use OTC decongestants prn, OTC cough and cold meds as needed, and warm salt water gargles, throat lozenges and/or OTC throat spray as needed. - Follow up in 3-5 days if symptoms persist or sooner if worsening of symptoms [facility] RN Student TEACHING PROVIDER (Physician/PA/SEO MARKETING SPECIALIST) NOTE OF PERSONAL INVOLVEMENT IN CARE: I have personally seen and examined the patient and performed the medical decision-making components. I have reviewed the Advanced Practice Registered Nurse (SEO MARKETING SPECIALIST) Student's documentation and verified the findings in the note as written. Any additions or changes are noted in bold/italics. Signature: Mary Comer Date: 07/18/2023 Time: 9:26 AM documented in this encounter [facility] 01-18-2023 Miscellaneous Notes Formattin g of this note might be different from the original. Patient given results and verbalized understanding of instructions given. Elo Lyon Please call and let patient know her vaginal swab was positive for yeast. Diflucan was sent to treat this. Follow-up with PCP or women's health if symptoms do not improve. documented in this encounter [facility] 01-16-2023 Note HNO ID: [id number] Author: Asia Florentino PA-C Service: ? Author Type: Physician [facility] Paramedic Type: Progress Notes Filed: 01/16/2023 3:31 PM Note Text: This note was created using SendTask. Subjective Dk Vogt is a 32 year old female. HPI Presents with vaginal itching and discharge over the past 2 days. She is also had an odor. She has had BV previously and this felt similar. She is also had a yeast infection a few years ago. She had antibiotics 2 months ago, none since then. Denies any dysuria, frequency or urgency. No abdominal pain or back pain. Last menstrual cycle was December 31. Denies chance of . She is sexually active, female partner. She is not having symptoms.no rash Review of Systems Constitutional: Negative. HENT: Negative. Respiratory: Negative. Cardiovascular: Negative. Gastrointestinal: Negative. Genitourinary: Positive for vaginal discharge and vaginal pain. Negative for dysuria, flank pain, frequency, hematuria, pelvic pain and urgency. Musculoskeletal: Negative. All other systems reviewed and are negative. PAST MEDICAL HISTORY Diagnosis Date Anxiety Depression depression Rh negative state in antepartum period Current Outpatient Medications Medication Sig Dispense Refill albuterol HFA (PROAIR HFA) 90 mcg/actuation inhaler Inhale 2 Puffs as instructed every 4 hours as needed. 18 g 0 acetaminophen (TYLENOL) 325 mg tablet Take 650 mg by mouth every 6 hours as needed. fluticasone (FLONASE) 50 mcg/actuation nasal spray Use 2 Sprays in each nostril once daily. Rinse mouth after use. 1 Each 0 cetirizine-pseudoephedrine (ZYRTEC-D) 5-120 mg per tablet Take 1 tablet by mouth twice daily. 10 tablet 0 ARIPiprazole (ABILIFY) 2 mg tablet Take 2 mg by mouth once daily. (Patient not taking: Reported on 01/16/2023) metFORMIN (GLUCOPHAGE) 500 mg tablet Take 500 mg by mouth once daily. (Patient not taking: Reported on 01/16/2023) topiramate (TOPAMAX) 100 mg tablet TAKE 1/2 (ONE-HALF) TABLET BY MOUTH DAILY FOR 7 DAYS, THEN INCREASE TO 1 TABLET DAILY. (Patient not taking: Reported on 06/11/2022) REXULTI 1 mg tablet Take 1 mg by mouth once daily. (Patient not taking: Reported on 06/11/2022) clindamycin (CLEOCIN) 300 mg capsule Take 300 mg by mouth three times daily. (Patient not taking: Reported on 11/07/2021 ) Clindamycin Phosphate (CLEOCIN T) 1 % lotion APPLY LOTION TOPICALLY TO AFFECTED AREA TWICE DAILY 14 DAYS (Patient not taking: Reported on 11/07/2021) topiramate (TOPAMAX) 25 mg tablet Take 25 mg by mouth daily at bedtime. (Patient not taking: Reported on 03/29/2021 ) 1 triamcinolone acetonide (KENALOG) 0.1 % cream Apply 1 application to affected area three times daily. Apply sparingly to area for rash/itching. (Patient not taking: Reported on 03/29/2021 ) 80 g 0 Etonogestrel-Ethinyl Estradiol (NUVARING) 0.12-0.015 mg/24 hr vaginal ring Use 1 Each vaginally as directed. Use as directed. (Patient not taking: Reported on 03/10/2019 ) 1 Each 14 VIT/IRON FUM/FOLIC AC ( VITAMIN ORAL) Take by mouth. (Patient not taking: Reported on 03/29/2021 ) No current facility-administered medications for this visit. PAST SURGICAL HISTORY Procedure Laterality Date EXTRACTION, ERUPTED TOOTH OR EXPOSED ROOT (ELEVATION AND/OR FORCEPS REMOVAL) No family history on file. Social History Tobacco Use Smoking status: Former Types: Cigarettes Smokeless tobacco: Current Tobacco comments: vape Substance Use Topics Alcohol use: No Drug use: No Objective BP 122/64 Pulse 62 Temp 36.6 ?C (97.8 ?F) (Tympanic) Resp 16 Wt 75 kg (165 lb 6.4 oz) LMP 12/28/2022 (Approximate) SpO2 97% BMI 27.52 kg/m? Physical Exam Vitals reviewed. Constitutional: Appearance: Normal appearance. HENT: Head: Normocephalic and atraumatic. Genitourinary: Comments: Exam deferred Skin: General: Skin is warm and dry. Neurological: Mental Status: She is alert. Assessment and Plan ASSESSMENT/PLAN: 1. Acute vaginitis - ICD9: 616.10, ICD10: N76.0 Patient preferred self swab. Declined gonorrhea chlamydia testing. Will call on results and treat as indicated. Patient agreeable with plan. - BACTERIAL VAGINOSIS AMPLIFICATION - ALLI / TRICHOMONAS AMPLIFICATION Asia Florentino PA-C [facility] 01-16-2023 History of Presen t illness Narrative This note was created using SendTask. Subjective Dk Vogt is a 32 year old female. HPI Presents with vaginal itching and discharge over the past 2 days. She is also had an odor. She has had BV previously and this felt similar. She is also had a yeast infection a few years ago. She had antibiotics 2 months ago, none since then. Denies any dysuria, frequency or urgency. No abdominal pain or back pain. Last menstrual cycle was December 31. Denies chance of . She is sexually active, female partner. She is not having symptoms.no rash Review of Systems Constitutional: Negative. HENT: Negative. Respiratory: Negative. Cardiovascular: Negative. Gastrointestinal: Negative. Genitourinary: Positive for vaginal discharge and vaginal pain. Negative for dysuria, flank pain, frequency, hematuria, pelvic pain and urgency. Musculoskeletal: Negative. All other systems reviewed and are negative. PAST MEDICAL HISTORY Diagnosis Date Anxiety Depression depression Rh negative state in antepartum period Current Outpatient Medications Medication Sig Dispense Refill albuterol HFA (PROAIR HFA) 90 mcg/actuation inhaler Inhale 2 Puffs as instructed every 4 hours as needed. 18 g 0 acetaminophen (TYLENOL) 325 mg tablet Take 650 mg by mouth every 6 hours as needed. fluticasone (FLONASE) 50 mcg/actuation nasal spray Use 2 Sprays in each nostril once daily. Rinse mouth after use. 1 Each 0 cetirizine-pseudoephedrine (ZYRTEC-D) 5-120 mg per tablet Take 1 tablet by mouth twice daily. 10 tablet 0 ARIPiprazole (ABILIFY) 2 mg tablet Take 2 mg by mouth once daily. (Patient not taking: Reported on 01/16/2023) metFORMIN (GLUCOPHAGE) 500 mg tablet Take 500 mg by mouth once daily. (Patient not taking: Reported on 01/16/2023) topiramate (TOPAMAX) 100 mg tablet TAKE 1/2 (ONE-HALF) TABLET BY MOUTH DAILY FOR 7 DAYS, THEN INCREASE TO 1 TABLET DAILY. (Patient not taking: Reported on 06/11/2022) REXULTI 1 mg tablet Take 1 mg by mouth once daily. (Patient not taking: Reported on 06/11/2022) clindamycin (CLEOCIN) 300 mg capsule Take 300 mg by mouth three times daily. (Patient not taking: Reported on 11/07/2021 ) Clindamycin Phosphate (CLEOCIN T) 1 % lotion APPLY LOTION TOPICALLY TO AFFECTED AREA TWICE DAILY 14 DAYS (Patient not taking: Reported on 11/07/2021) topiramate (TOPAMAX) 25 mg tablet Take 25 mg by mouth daily at bedtime. (Patient not taking: Reported on 03/29/2021 ) 1 triamcinolone acetonide (KENALOG) 0.1 % cream Apply 1 application to affected area three times daily. Apply sparingly to area for rash/itching. (Patient not taking: Reported on 03/29/2021 ) 80 g 0 Etonogestrel-Ethinyl Estradiol (NUVARING) 0.12-0.015 mg/24 hr vaginal ring Use 1 Each vaginally as directed. Use as directed. (Patient not taking: Reported on 03/10/2019 ) 1 Each 14 VIT/IRON FUM/FOLIC AC ( VITAMIN ORAL) Take by mouth. (Patient not taking: Reported on 03/29/2021 ) No current facility-administered medications for this visit. PAST SURGICAL HISTORY Procedure Laterality Date EXTRACTION, ERUPTED TOOTH OR EXPOSED ROOT (ELEVATION AND/OR FORCEPS REMOVAL) No family history on file. Social History Tobacco Use Smoking status: Former Types: Cigarettes Smokeless tobacco: Current Tobacco comments: vape Substance Use Topics Alcohol use: No Drug use: No Objective BP 122/64 Pulse 62 Temp 36.6 C (97.8 F) (Tympanic) Resp 16 Wt 75 kg (165 lb 6.4 oz) LMP 12/28/2022 (Approximate) SpO2 97% BMI 27.52 kg/m Physical Exam Vitals reviewed. Constitutional: Appearance: Normal appearance. HENT: Head: Normocephalic and atraumatic. Genitourinary: Comments: Exam deferred Skin: General: Skin is warm and dry. Neurological: Mental Status: She is alert. Assessment and Plan ASSESSMENT/PLAN: 1. Acute vaginitis - ICD9: 616.10, ICD10: N76.0 Patient preferred self swab. Declined gonorrhea chlamydia testing. Will call on results and treat as indicated. Patient agreeable with plan. - BACTERIAL VAGINOSIS AMPLIFICATION - ALLI / TRICHOMONAS AMPLIFICATION Asia Florentino PA-C documented in this encounter [facility] 11-30-2022 History of Presen t illness Narrative This note was created using [employer]. Subjective Dk Vogt is a 32 year old female. HPI Patient presents with sore throat, nasal congestion, headache, chills and fever for 2 days. No cough. She has had fatigue and bodyaches. She denies cp or sob. There was a coworker sick at [facility] [employer] where she works. No nvd. No hx of asthma. Review of Systems Constitutional: Positive for chills, fatigue and fever. HENT: Positive for congestion, ear pain, postnasal drip, rhinorrhea, sinus pressure and sore throat. Respiratory: Negative for cough. Cardiovascular: Negative. Gastrointestinal: Negative. Genitourinary: Negative. Musculoskeletal: Negative. All other systems reviewed and are negative. PAST MEDICAL HISTORY Diagnosis Date Anxiety Depression depression Rh negative state in antepartum period Current Outpatient Medications Medication Sig Dispense Refill ARIPiprazole (ABILIFY) 2 mg tablet Take 2 mg by mouth once daily. metFORMIN (GLUCOPHAGE) 500 mg tablet Take 500 mg by mouth once daily. albuterol HFA (PROAIR HFA) 90 mcg/actuation inhaler Inhale 2 Puffs as instructed every 4 hours as needed. 18 g 0 acetaminophen (TYLENOL) 325 mg tablet Take 650 mg by mouth every 6 hours as needed. fluticasone (FLONASE) 50 mcg/actuation nasal spray Use 2 Sprays in each nostril once daily. Rinse mouth after use. 1 Each 0 cetirizine-pseudoephedrine (ZYRTEC-D) 5-120 mg per tablet Take 1 tablet by mouth twice daily. 10 tablet 0 topiramate (TOPAMAX) 100 mg tablet TAKE 1/2 (ONE-HALF) TABLET BY MOUTH DAILY FOR 7 DAYS, THEN INCREASE TO 1 TABLET DAILY. (Patient not taking: Reported on 06/11/2022) REXULTI 1 mg tablet Take 1 mg by mouth once daily. (Patient not taking: Reported on 06/11/2022) clindamycin (CLEOCIN) 300 mg capsule Take 300 mg by mouth three times daily. (Patient not taking: Reported on 11/07/2021 ) Clindamycin Phosphate (CLEOCIN T) 1 % lotion APPLY LOTION TOPICALLY TO AFFECTED AREA TWICE DAILY 14 DAYS (Patient not taking: Reported on 11/07/2021) topiramate (TOPAMAX) 25 mg tablet Take 25 mg by mouth daily at bedtime. (Patient not taking: Reported on 03/29/2021 ) 1 triamcinolone acetonide (KENALOG) 0.1 % cream Apply 1 application to affected area three times daily. Apply sparingly to area for rash/itching. (Patient not taking: Reported on 03/29/2021 ) 80 g 0 Etonogestrel-Ethinyl Estradiol (NUVARING) 0.12-0.015 mg/24 hr vaginal ring Use 1 Each vaginally as directed. Use as directed. (Patient not taking: Reported on 03/10/2019 ) 1 Each 14 VIT/IRON FUM/FOLIC AC ( VITAMIN ORAL) Take by mouth. (Patient not taking: Reported on 03/29/2021 ) No current facility-administered medications for this visit. PAST SURGICAL HISTORY Procedure Laterality Date EXTRACTION, ERUPTED TOOTH OR EXPOSED ROOT (ELEVATION AND/OR FORCEPS REMOVAL) No family history on file. Social History Tobacco Use Smoking status: Former Types: Cigarettes Smokeless tobacco: Current Tobacco comments: vape Substance Use Topics Alcohol use: No Drug use: No Objective BP 128/86 Pulse (!) 57 Temp 37 C (98.6 F) (Temporal) Resp 18 Wt 74 kg (163 lb 3.2 oz) LMP 11/29/2022 (Exact Date) SpO2 98% BMI 27.16 kg/m Physical Exam Vitals reviewed. Constitutional: Appearance: Normal appearance. HENT: Head: Normocephalic and atraumatic. Right Ear: Ear canal and external ear normal. Left Ear: Tympanic membrane, ear canal and external ear normal. Ears: Comments: Right serous middle ear effusion Nose: Congestion present. Mouth/Throat: Lips: [place]. Mouth: Mucous membranes are moist. Pharynx: Pharyngeal swelling and posterior oropharyngeal erythema present. No oropharyngeal exudate or uvula swelling. Tonsils: No tonsillar exudate or tonsillar abscesses. 1+ on the right. 1+ on the left. Cardiovascular: Rate and Rhythm: Normal rate and regular rhythm. Heart sounds: Normal heart sounds. Pulmonary: Effort: Pulmonary effort is normal. Breath sounds: Normal breath sounds. Musculoskeletal: Cervical back: Neck supple. Lymphadenopathy: Cervical: Cervical adenopathy present. Skin: General: Skin is warm and dry. Findings: No rash. Neurological: Mental Status: She is alert. Assessment and Plan ASSESSMENT/PLAN: 1. Throat pain - ICD9: 784.1, ICD10: R07.0 (primary diagnosis) Strep neg - STREP A MOLECULAR (POC) - COVID WITH FLUA+B, ROUTINE 2. Viral URI with cough - ICD9: 465.9, ICD10: J06.9 - Discussed viral etiology and rationale for treatment. - Symptomatic treatment with prn analgesia - Supportive care with fluids and rest - zyrtec d and Flonase sent for congestion. Asia Florentino PA-C documented in this encounter [facility] 09-09-2022 Instructions Alex Cota APRN.COMMISSARY AGENT - 09/09/2022 10:49 AM EST RESPIRATORY INFECTION GENERAL INFORMATION: An upper respiratory tract infection, or cold, is a viral infection of the airway passages. It can be caused by any one of almost 200 different viruses. Common symptoms include a runny or stuffy nose, sneezing, watery eyes, sore throat, cough, and slight fever. Colds are contagious, especially during the first 3 or 4 days and cannot be cured by antibiotics. They are spread by coughs, sneezes, and direct contact, especially [id number]. A respiratory tract infection usually clears up in a few days, but some people may be sick for a week or two. INSTRUCTIONS: 1. Be careful not to blow your nose too hard because this may cause a nosebleed. 2. Use a cool-mist humidifier (vaporizer) to increase air moisture. This will make it easier for you to breathe. Do not use hot steam. 3. Rest as much as possible and get plenty of sleep. 4. Wash your hands often, especially after you blow your nose. Cover your mouth and nose with a tissue when you sneeze or cough. 5. Drink plenty of clear fluids (8 glasses a day) such as water, fruit juice, tea, clear soups, and carbonated beverages. CONTACT YOUR DOCTOR IF : 1. Your fever lasts more than 3 days. 2. You have a sore throat that gets worse or you see white or yellow spots in your throat. 3. Your cough gets worse or lasts more than 10 days. 4. You develop a rash anywhere on your skin. 5. You have an earache or a headache. 6. You have thick greenish or yellowish discharge from your nose. RETURN IMMEDIATELY IF: 1. You cough up thick yellow, green, coles, or bloody sputum. 2. You have difficulty breathing, pain in your chest, or your skin or nails look coles or blue. 3. You have shaking chills or a temperature over 102 F (39 C). documented in this encounter [facility] 09-09-2022 History of Presen t illness Narrative Subjective HPI HPI Dk Vogt is a 32 year old female who presents today for CC of cough, congestion, h/a. This started 2 days ago. Has tried otc medication for relief. Symptoms are worsened by nothing. Risk factors sick exposures at work. .Patient presents with: Head Congestion: [place], cough, runny nose x2 days PAST MEDICAL HISTORY Diagnosis Date Anxiety Depression depression Rh negative state in antepartum period PAST SURGICAL HISTORY Procedure Laterality Date EXTRACTION, ERUPTED TOOTH OR EXPOSED ROOT (ELEVATION AND/OR FORCEPS REMOVAL) ALLERGIES Codeine and Nickel MEDICATIONS ARIPiprazole (ABILIFY) 2 mg tablet Take 2 mg by mouth once daily. metFORMIN (GLUCOPHAGE) 500 mg tablet Take 500 mg by mouth once daily. topiramate (TOPAMAX) 100 mg tablet TAKE 1/2 (ONE-HALF) TABLET BY MOUTH DAILY FOR 7 DAYS, THEN INCREASE TO 1 TABLET DAILY. (Patient not taking: Reported on 06/11/2022) REXULTI 1 mg tablet Take 1 mg by mouth once daily. (Patient not taking: Reported on 06/11/2022) clindamycin (CLEOCIN) 300 mg capsule Take 300 mg by mouth three times daily. (Patient not taking: Reported on 11/07/2021 ) Clindamycin Phosphate (CLEOCIN T) 1 % lotion APPLY LOTION TOPICALLY TO AFFECTED AREA TWICE DAILY 14 DAYS (Patient not taking: Reported on 11/07/2021) topiramate (TOPAMAX) 25 mg tablet Take 25 mg by mouth daily at bedtime. (Patient not taking: Reported on 03/29/2021 ) triamcinolone acetonide (KENALOG) 0.1 % cream Apply 1 application to affected area three times daily. Apply sparingly to area for rash/itching. (Patient not taking: Reported on 03/29/2021 ) Etonogestrel-Ethinyl Estradiol (NUVARING) 0.12-0.015 mg/24 hr vaginal ring Use 1 Each vaginally as directed. Use as directed. (Patient not taking: Reported on 03/10/2019 ) acetaminophen (TYLENOL) 325 mg tablet Take 650 mg by mouth every 6 hours as needed. VIT/IRON FUM/FOLIC AC ( VITAMIN ORAL) Take by mouth. (Patient not taking: Reported on 03/29/2021 ) No family history on file. Social History Tobacco Use Smoking status: Every Day Smokeless tobacco: Never Substance Use Topics Alcohol use: No Drug use: No Review of Systems Constitutional: Positive for malaise/fatigue. Negative for fever. HENT: Positive for congestion. Negative for ear pain, nosebleeds and sore throat. Respiratory: Positive for cough. Negative for shortness of breath and wheezing. Cardiovascular: Negative for chest pain. Musculoskeletal: Negative for neck pain. Skin: Negative for itching and rash. Neurological: Positive for headaches. Objective Blood pressure 110/84, pulse 104, temperature 36.9 C (98.4 F), resp. rate 20, weight 74.6 kg (164 lb 6.4 oz), last menstrual period 12/16/2016, SpO2 98 %, unknown if currently . Physical Exam Constitutional: General: She is not in acute distress. Appearance: She is not toxic-appearing or diaphoretic. HENT: Head: Normocephalic and atraumatic. Cardiovascular: Rate and Rhythm: Normal rate and regular rhythm. Heart sounds: Normal heart sounds, S1 normal and S2 normal. Pulmonary: Effort: Pulmonary effort is normal. Breath sounds: Normal breath sounds. Lymphadenopathy: Cervical: No cervical adenopathy. Right cervical: No superficial cervical adenopathy. Left cervical: No superficial cervical adenopathy. Neurological: Mental Status: She is alert and oriented to person, place, and time. Gait: Gait is intact. ASSESSMENT/PLAN: 1. URI, acute - ICD9: 465.9, ICD10: J06.9 - Discussed viral etiology and rationale for treatment. - Symptomatic treatment with prn analgesia - Supportive care with fluids and rest - Follow up in 3-5 days if symptoms persist or sooner if worsening of symptoms Please notify that covid/flu testing negative. Continue with plan of care as discussed during visit. - COVID WITH FLUA+B, ROUTINE - ALBUTEROL SULFATE HFA 90 MCG/ACTUATION AEROSOL INHALER Alex Cota APRN.STEPHEN documented in this encounter [facility] 06-11-2022 Instructions Little Hernandez APRN.STEPHEN - 06/11/2022 1:45 PM EDT covid test ordered You will be notified in 24 -48 hours, results [facility] until covid results are back Rest, increase water intake Motrin or Tylenol as needed for fever or pain. Salt water gargles, chloraseptic spray or lozenges as needed for sore throat. Warm beverages, honey. Nasal saline spray as needed Cool mist humidifier at night Tylenol (generic acetaminophen) 500 mg-2 tabs every 8 hrs. as needed for fever and aches Ibuprofen 600 mg (3-200mg tablets) every 6 hours -Sudafed (generic is fine), behind the counter, 2x30 mg tabs twice daily as needed for congestion -Mucinex (generic is fine) Guaifenesin 1200 mg twice daily to help with cough and to thin out mucus * Seek medical care immediately, call 911, go to ER if you have chest pain, difficulty breathing, shortness of breath, inability to swallow. documented in this encounter [facility] 06-11-2022 History of Presen t illness Narrative Subjective The history is provided by the patient. No specialized language instructor was used. HPI Dk Vogt is a 32 year old female who presents today for CC of sore throat, post nasal drainage, fever, and body aches. Symptoms include: Fever (?100.4F): Yes or Chills: No Cough: No Shortness of breath: No or Difficulty breathing: No Fatigue: Yes Muscle aches: Yes Headache: Yes New loss of smell or taste: No Sore throat: Yes Nasal congestion: No or Rhinorrhea: No Nausea: No or Vomiting: No Diarrhea: No OTC meds/remedies that patient has tried: acetaminophen. High risk category assessment No high risk factors Exposures: Sick contacts? No Family or close contacts with confirmed/probable COVID-19 in last 14 days? No BP 136/74 Pulse 100 Temp 37.1 C (98.8 F) Resp 16 Wt 78 kg (172 lb) LMP 12/16/2016 (Exact Date) SpO2 97% BMI 28.62 kg/m Social History Tobacco Use Smoking status: Every Day Smokeless tobacco: Never Substance Use Topics Alcohol use: No Drug use: No PAST MEDICAL HISTORY Diagnosis Date Anxiety Depression depression Rh negative state in antepartum period I have confirmed and edited as necessary, the [facility] Review of Systems Constitutional: Positive for chills, fever and malaise/fatigue. HENT: Positive for congestion. Negative for ear pain, sinus pain and sore throat. Respiratory: Negative for cough, sputum production, shortness of breath and wheezing. Cardiovascular: Negative for chest pain. Gastrointestinal: Negative for abdominal pain, nausea and vomiting. Musculoskeletal: Positive for myalgias. Neurological: Positive for headaches. Objective Physical Exam Vitals and nursing note reviewed. HENT: Head: Normocephalic and atraumatic. Right Ear: Tympanic membrane, ear canal and external ear normal. Left Ear: Tympanic membrane, ear canal and external ear normal. Nose: No mucosal edema, congestion or rhinorrhea. Right Sinus: No maxillary sinus tenderness or frontal sinus tenderness. Left Sinus: No maxillary sinus tenderness or frontal sinus tenderness. Mouth/Throat: Pharynx: Uvula midline. No oropharyngeal exudate or posterior oropharyngeal erythema. Cardiovascular: Rate and Rhythm: Normal rate and regular rhythm. Heart sounds: Normal heart sounds. Pulmonary: Effort: Pulmonary effort is normal. Breath sounds: Normal breath sounds. Lymphadenopathy: Head: Right side of head: No submental, submandibular or tonsillar adenopathy. Left side of head: No submental, submandibular or tonsillar adenopathy. Cervical: No cervical adenopathy. Skin: General: Skin is warm and dry. Neurological: Mental Status: She is alert. Psychiatric: Mood and Affect: Affect normal. ASSESSMENT/PLAN: 1. Exposure to COVID-19 virus - ICD9: V01.79, ICD10: Z20.822 (primary diagnosis) - COVID WITH FLUA+B, ROUTINE 2. Sore throat - ICD9: 462, ICD10: J02.9 - COVID WITH FLUA+B, ROUTINE 3. Body aches - ICD9: 780.96, ICD10: R52 - COVID WITH FLUA+B, ROUTINE 4. Fever, unspecified fever cause - ICD9: 780.60, ICD10: R50.9 - COVID WITH FLUA+B, ROUTINE Appears to be viral illness, covid, flu, other Home isolation Testing ordered Comfort measures discussed - see patient instructions. When to seek higher level of care Notified in 24-48 hours with results, available on mychart Diagnosis and treatment plan were discussed and questions were answered to the patient's satisfaction. Pt acknowledged understanding of concepts and follow up plan. Specific signs and symptoms that would indicate the need for higher level of care were discussed in detail warranting prompt ER evaluation. Little Hernandez APRN.CNP documented in this encounter [facility] documented in this encounter [facility] note* Diagnosis Elevated liver enzymes Nonspecific elevation of levels of transaminase or lactic acid dehydrogenase (LDH) documented in this encounter [facility] note* Diagnosis Exposure to COVID-19 virus- Primary Sore throat Acute pharyngitis Body aches Generalized pain Fever, unspecified fever cause documented in this encounter [facility] note* Diagnosis URI, acute- Primary Acute upper respiratory infections of unspecified site documented in this encounter [facility] note* Diagnosis Throat pain- Primary Viral URI with cough Acute upper respiratory infections of unspecified site [facility] Diagnosis Acute vaginitis- Primary Vaginitis and vulvovaginitis, unspecified documented in this encounter [facility] note* Diagnosis Upper respiratory virus- Primary Acute upper respiratory infections of unspecified site [facility]* Diagnosis Sore throat- Primary Acute pharyngitis documented in this encounter [facility] note* Diagnosis Acute pharyngitis, unspecified etiology- Primary documented in this encounter [facility] Summary Purpose Family History No Family History Records FoundNo Family History Records FoundNo Family History Records FoundNo Family History Records FoundNo Family History Records FoundNo Family History Records Found Advance Directives No Advanced Directives Records FoundDocuments on File Type Date Recorded Patient [employer] Underwriter Expl anation Advance Directives and Living Will Power of Sort Operations Supervisor Documents on File Type Date Recorded Patient [employer] Underwriter Expl anation Advance Directives and Living Will Power of Sort Operations Supervisor Documents on File Type Date Recorded Patient [employer] Underwriter Expl anation Advance Directives and Living Will Power of Sort Operations Supervisor DNR Documentation Instructions * Patient Instructions* Elo Roger MA - 11/15/2019 2:40 PM EST Learning About Benefits From Quitting Smoking How does quitting smoking make you healthier? If you're thinking about quitting smoking, you may have a few reasons to be smoke-free. Your healthmay be one of them. When you quit smoking, you lower your risks for cancer, lung disease, heart attack, stroke, blood vessel disease, and blindness from macular degeneration. When you're smoke-free, you get sick less often, and you heal faster. You are less likely to get colds, flu, bronchitis, and pneumonia. As a nonsmoker, you may find that your mood is better and you are less stressed. When and how will you feel healthier? Quitting has real health benefits that start from day 1 of being smoke-free. And the longer you stay smoke-free, the healthier you get and the better you feel. The first hours After just 20 minutes, your blood pressure and heart rate go down. That means there's less stress on your heart and blood vessels. Within 12 hours, the level of carbon monoxide in your blood drops back to normal. That makes room for more oxygen. With more oxygen in your body, you may notice that you have more energy than when you smoked. After 2 weeks Your lungs start to work better. Your risk of heart attack starts to drop. After 1 month When your lungs are clear, you cough less and breathe deeper, so it's easier to be active. Your sense of taste and smell return. That means you can enjoy food more than you have since you started smoking. Over the years After 1 year, your risk of heart disease is half what it would be if you kept smoking. After 5 years, your risk of stroke starts to shrink. Within a few years after that, it's about the same as if you'd never smoked. After 10 years, your risk of dying from lung cancer is cut by about half. And your risk for many other types of cancer is lower too. How would quitting help others in your life? When you quit smoking, you improve the health of everyone who now breathes in your smoke. Their heart, lung, and cancer risks drop, much like yours. They are sick less. For babies and small children, living smoke-free means they're less likely to have ear infections, pneumonia, and bronchitis. If you're a woman who is or will be someday, quitting smoking means a healthier . Children who are close to you are less likely to become adult smokers. Where can you learn more? Go to https://www.healthwise.net/patientEd Enter O319 in the search box to learn more about Learning About Benefits From Quitting Smoking. Current as of: April 08, 2019 Content Version: 12.3 2494-9506 [employer]. Care instructions adapted under license by your healthcare professional. If you have questions about a medical condition or this instruction, always ask your healthcare professional. [employer] disclaims any warranty or liability for your use of this information. Breast Self-Exam: Care Instructions Your Care Instructions A breast self-exam is when you check your breasts for lumps or changes. This regular exam helps youlearn how your breasts normally look and feel. Most breast problems or changes are not because of cancer. Breast self-exam is not a substitute for a mammogram. Having regular breast exams by your doctor and regular mammograms improve your chances of finding any problems with your breasts. Some women set a time each month to do a [id number] breast self-exam. Other women like a less formal system. They might look at their breasts as they brush their teeth, or feel their breasts once in a while in the shower. If you notice a change in your breast, tell your doctor. Follow-up care is a salgado part of your treatment and safety. Be sure to make and go to all appointments, and call your doctor if you are having problems. It's also a good idea to know your test resultsand keep a list of the medicines you take. How do you do a breast self-exam? The best time to examine your breasts is usually one week after your menstrual period begins. Your breasts should not be tender then. If you do not have periods, you might do your exam on a day of the month that is easy to remember. To examine your breasts: ? Remove all your clothes above the waist and lie down. When you are lying down, your breast tissuespreads evenly over your chest wall, which makes it easier to feel all your breast tissue. ? Use the pads not the fingertips of the 3 middle fingers of your left hand to check your right breast. Move your fingers slowly in small coin-sized circles that overlap. ? Use three levels of pressure to feel of all your breast tissue. Use light pressure to feel the tissue close to the skin surface. Use medium pressure to feel a little deeper. Use firm pressure to feel your tissue close to your breastbone and ribs. Use each pressure level to feel your breast tissuebefore moving on to the next spot. ? Check your entire breast, moving up and down as if following a strip from the collarbone to the bra line, and from the armpit to the ribs. Repeat until you have covered the entire breast. ? Repeat this procedure for your left breast, using the pads of the 3 middle fingers of your right hand. To examine your breasts while in the shower: ? Place one arm over your head and lightly soap your breast on that side. ? Using the pads of your fingers, gently move your hand over your breast (in the strip pattern described above), feeling carefully for any lumps or changes. ? Repeat for the other breast. Have your doctor inspect anything you notice to see if you need further testing. Where can you learn more? Go to https://www.[employer].net/patientEd Enter P148 in the search box to learn more about Breast Self-Exam: Care Instructions. Current as of: May 26, 2019 Content Version: 12.3 [employer]. Care instructions adapted under license by your healthcare professional. If you have questions about a medical condition or this instruction, always ask your healthcare professional. [employer] disclaims any warranty or liability for your use of this information. Food as Fuel: Care Instructions Your Care Instructions A healthy, balanced diet gives your body nutrients. Nutrients are like fuel for your body. They give you energy. And they keep your heart beating, your brain active, and your muscles working. They also help to build and strengthen bones, muscles, and other body tissues. Your body needs three major nutrients for energy. These are carbohydrate, protein, and fat. Carbohydrate provides energy for your brain, muscles, heart, and lungs. It is found in bread, cereal, rice, pasta, fruits, vegetables, milk, yogurt, and sugar. Protein provides energy and helps build and repair your body's cells. It is found in meat, poultry,fish, cooked dry beans, cheese, tofu and other soy products, nuts and seeds, and milk and milk products. Fat provides energy, helps build the covering around nerves in your body, and helps make hormones. Fat is found in butter, margarine, oil, mayonnaise, salad dressing, and nuts. It is also found in most foods that come from animals, such as meat and milk products. Many foods also have fat added to them. Your body needs all three of these nutrients to be healthy. If you choose a good mix of foods, you can help your body get the right amounts of carbohydrate, protein, and fat. It can also keep you at a healthy weight. Follow-up care is a salgado part of your treatment and safety. Be sure to make and go to all appointments, and call your doctor if you are having problems. It's also a good idea to know your test resultsand keep a list of the medicines you take. How can you care for yourself at home? Eat a balanced diet Try to eat variety of healthy foods every day. These include: ? 5 to 8 ounces of bread, cereal, crackers, rice, or pasta. An ounce is about 1 slice of bread, cupof breakfast cereal, or cup of cooked rice, cereal, or pasta. Choose whole-grain products for at least half of your grain servings. ? 2 to 3 cups of vegetables. Be sure to include: Dark green vegetables such as broccoli and spinach. [place] vegetables such as carrots and sweet potatoes. ? 1 to 2 cups of fresh, frozen, or canned fruit. A banana, an orange, or a large apple equals 1 cup. ? 3 cups of nonfat or low-fat milk, yogurt, or other milk products. ? 5 to 6 ounces of protein foods. These include chicken, fish, lean meat, beans, nuts, and seeds. One egg equals 1 ounce of meat, poultry, or fish. A cup of cooked beans equals 2 ounces of protein. Stay fueled all day Start your day with breakfast. If you don't have time to sit down for a bowl of cereal in the morning, try something that you can eat on the go. Try a piece of whole wheat bread with peanut butter or a container of yogurt with frozen berries mixed in. Eat regularly scheduled meals and snacks. If you miss a meal, you may overeat at the next meal. Or you may choose a less healthy snack. Drink enough water. (If you have kidney, heart, or liver disease and have to limit fluids, talk with your doctor before you increase your fluid intake.) Where can you learn more? Go to https://www.healthwise.net/patientEd Enter Z059 in the search box to learn more about Food as Fuel: Care Instructions. Current as of: May 26, 2019 Content Version: 12.3 [employer]. Care instructions adapted under license by your healthcare professional. If you have questions about a medical condition or this instruction, always ask your healthcare professional. [employer] disclaims any warranty or liability for your use of this information. Suggestions that may help. -Elimination of caffeine -Evening primrose oil capsules 500 mg 4 x daily -Smoking cessation -Vit E 400-600 IU daily documented in this encounter* Patient Instructions* Evgeny([facility])Darío MA - 11/16/2019 1:45 PM EST Learning About Benefits From Quitting Smoking How does quitting smoking make you healthier? If you're thinking about quitting smoking, you may have a few reasons to be smoke-free. Your healthmay be one of them. When you quit smoking, you lower your risks for cancer, lung disease, heart attack, stroke, blood vessel disease, and blindness from macular degeneration. When you're smoke-free, you get sick less often, and you heal faster. You are less likely to get colds, flu, bronchitis, and pneumonia. As a nonsmoker, you may find that your mood is better and you are less stressed. When and how will you feel healthier? Quitting has real health benefits that start from day 1 of being smoke-free. And the longer you stay smoke-free, the healthier you get and the better you feel. The first hours After just 20 minutes, your blood pressure and heart rate go down. That means there's less stress on your heart and blood vessels. Within 12 hours, the level of carbon monoxide in your blood drops back to normal. That makes room for more oxygen. With more oxygen in your body, you may notice that you have more energy than when you smoked. After 2 weeks Your lungs start to work better. Your risk of heart attack starts to drop. After 1 month When your lungs are clear, you cough less and breathe deeper, so it's easier to be active. Your sense of taste and smell return. That means you can enjoy food more than you have since you started smoking. Over the years After 1 year, your risk of heart disease is half what it would be if you kept smoking. After 5 years, your risk of stroke starts to shrink. Within a few years after that, it's about the same as if you'd never smoked. After 10 years, your risk of dying from lung cancer is cut by about half. And your risk for many other types of cancer is lower too. How would quitting help others in your life? When you quit smoking, you improve the health of everyone who now breathes in your smoke. Their heart, lung, and cancer risks drop, much like yours. They are sick less. For babies and small children, living smoke-free means they're less likely to have ear infections, pneumonia, and bronchitis. If you're a woman who is or will be someday, quitting smoking means a healthier . Children who are close to you are less likely to become adult smokers. Where can you learn more? Go to https://www.[employer]Studio/patientEd Enter O319 in the search box to learn more about Learning About Benefits From Quitting Smoking. Current as of: April 08, 2019 Content Version: 12.3 9206-2582 [employer]. Care instructions adapted under license by your healthcare professional. If you have questions about a medical condition or this instruction, always ask your healthcare professional. [employer] disclaims any warranty or liability for your use of this information. Food as Fuel: Care Instructions Your Care Instructions A healthy, balanced diet gives your body nutrients. Nutrients are like fuel for your body. They give you energy. And they keep your heart beating, your brain active, and your muscles working. They also help to build and strengthen bones, muscles, and other body tissues. Your body needs three major nutrients for energy. These are carbohydrate, protein, and fat. Carbohydrate provides energy for your brain, muscles, heart, and lungs. It is found in bread, cereal, rice, pasta, fruits, vegetables, milk, yogurt, and sugar. Protein provides energy and helps build and repair your body's cells. It is found in meat, poultry,fish, cooked dry beans, cheese, tofu and other soy products, nuts and seeds, and milk and milk products. Fat provides energy, helps build the covering around nerves in your body, and helps make hormones. Fat is found in butter, margarine, oil, mayonnaise, salad dressing, and nuts. It is also found in most foods that come from animals, such as meat and milk products. Many foods also have fat added to them. Your body needs all three of these nutrients to be healthy. If you choose a good mix of foods, you can help your body get the right amounts of carbohydrate, protein, and fat. It can also keep you at a healthy weight. Follow-up care is a salgado part of your treatment and safety. Be sure to make and go to all appointments, and call your doctor if you are having problems. It's also a good idea to know your test resultsand keep a list of the medicines you take. How can you care for yourself at home? Eat a balanced diet Try to eat variety of healthy foods every day. These include: ? 5 to 8 ounces of bread, cereal, crackers, rice, or pasta. An ounce is about 1 slice of bread, cupof breakfast cereal, or cup of cooked rice, cereal, or pasta. Choose whole-grain products for at least half of your grain servings. ? 2 to 3 cups of vegetables. Be sure to include: Dark green vegetables such as broccoli and spinach. [place] vegetables such as carrots and sweet potatoes. ? 1 to 2 cups of fresh, frozen, or canned fruit. A banana, an orange, or a large apple equals 1 cup. ? 3 cups of nonfat or low-fat milk, yogurt, or other milk products. ? 5 to 6 ounces of protein foods. These include chicken, fish, lean meat, beans, nuts, and seeds. One egg equals 1 ounce of meat, poultry, or fish. A cup of cooked beans equals 2 ounces of protein. Stay fueled all day Start your day with breakfast. If you don't have time to sit down for a bowl of cereal in the morning, try something that you can eat on the go. Try a piece of whole wheat bread with peanut butter or a container of yogurt with frozen berries mixed in. Eat regularly scheduled meals and snacks. If you miss a meal, you may overeat at the next meal. Or you may choose a less healthy snack. Drink enough water. (If you have kidney, heart, or liver disease and have to limit fluids, talk with your doctor before you increase your fluid intake.) Where can you learn more? Go to https://www.[employer].net/patientEd Enter Z059 in the search box to learn more about Food as Fuel: Care Instructions. Current as of: May 26, 2019 Content Version: 12.3 8726-0390 [employer]. Care instructions adapted under license by your healthcare professional. If you have questions about a medical condition or this instruction, always ask your healthcare professional. [employer] disclaims any warranty or liability for your use of this information. Electronically signed by Evgeny([facility]), ANGIE Chanel at 11/16/2019 1:52 PM EST documented in this encounter History of Present Illness * Julieta Joseph APRN COMMISSARY AGENT - 11/15/2019 2:40 PM EST Subjective: Dk Vogt is a 29 y.o. female who presents for an annual exam. The patient has complaints today for right breast abnormality. States she thinks maybe she felt a lump. Denies FHx breast cancer. Also would like test today, which was negative. 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 The patient reports that there is not domestic violence in her life. The patient is sexually active. Number of lifetime sexual partners: 13. First age of intercourse: 17. Patient has nothad a history of abnormal pap, cervical or vaginal cancer, or STD. Menstrual History: OB History No obstetric history on file. Menarche age: 13 Patient's last menstrual period was 10/25/2019. Patient's medications, allergies, past medical, surgical, social and family histories were reviewedand updated as appropriate. Body mass index is 31.05 kg/m .. I discussed her BMI. She has been counseled in the office during this visit . Review of Systems Pertinent items are noted in HPI. Objective: Physical Exam: General Appearance: Alert & oriented x 3. No acute distress. Skin: No lesions. Warm and dry. Neck: Supple Cardiac: Rate and rhythm regular, no murmurs. Respiratory: Respirations easy and regular. Breath sounds clear bilaterally. Breast: Symmetrical without masses or tenderness. No nipple discharge. No palpable axillary, supraclavicular lymph nodes. Dense breast tissue bilaterally. FC changes. Abdomen: Soft, non-tender. Bowel sounds present. Extremities: ROM intact. External Genitalia: Normal without lesions or sores. Bartholin and [place]'s glands non-palpable. Urethra: Without discharge. Vagina: [place], moist. No lesions or sores noted. Vaginal tone normal. Cervix: [place], no cervical discharge, redness, or sores. No cervical motion tenderness. Adnexa: Without masses or tenderness. Uterus: Normal size, palpable without masses or tenderness. Declines confidential investigator Assessment: Healthy female exam. \ 1. Encounter for well woman exam with routine gynecological exam POCT Urine Pap Smear (Lina) 2. Smoker 3. Screening for STD (sexually transmitted disease) GC & Chlamydia Amplified Probe Trichomonas Amplified Probe 4. Negative test 5. Breast tenderness in female US Breast Bilateral Complete 6. Dense breast tissue US Breast Bilateral Complete 7. BMI 31.0-31.9,adult Plan: All questions answered. Await pap smear results. Breast self exam technique reviewed and patient encouraged to perform self-exam monthly. Chlamydia specimen. Diagnosis explained in detail, including differential. Discussed healthy lifestyle modifications. Educational material distributed. Follow up as needed. GC specimen. Thin prep Pap smear. Not interested in control at this time. Suggestions that may help with breast tenderness. -Elimination of caffeine -Evening primrose oil capsules 500 mg 4 x daily -Smoking cessation -Vit E 400-600 IU daily Dk was seen today for gynecologic exam. Diagnoses and all orders for this visit: Encounter for well woman exam with routine gynecological exam - POCT Urine - Pap Smear (Lina); Future Smoker Screening for STD (sexually transmitted disease) - GC & Chlamydia Amplified Probe; Future - Trichomonas Amplified Probe; Future Negative test Breast tenderness in female - US Breast Bilateral Complete; Future Dense breast tissue - US Breast Bilateral Complete; Future BMI 31.0-31.9,adult Other orders - Cancel: US Breast Right Complete; Future Return in about 1 year (around 11/15/2020) for annual exam. Elo Benitez MA - 11/15/2019 2:40 PM KERWIN Reyna Sin is presenting for evaluation of Pt is present today for her annual exam and states she is doing ok at this time except she thinks her Right breast feels and looks different and she is wanting to have it looked at and get a mammogram. Pt states she has no HX of breast cancer in herfamily. Pt thinks she may be and requested a test which was negative. . Pt states she has not had a pap since her last baby was born and he is 8. Patient's medications, allergies, past medical, surgical, social and family histories were reviewedand updated as appropriate. Body mass index is 31.05 kg/m .. Provider discussed her BMI. She has been counseled in the office during this visit . PHQ: PHQ-2 Total Score: 0 Interpretation of Total Score Depression Severity: 1-4 = Minimal depression, 5-9 = Mild depression, 10-14 = Moderate depression, 15-19 = Moderately severe depression, 20-27 = Severe depression Depression screening was performed with standardized tool: Screening score indicates no depression. documented in this encounter* Paris Mccann APRN - 11/16/2019 1:45 PM EST Subjective: Dk Vogt is a 29 y.o. female. Patient's medications, allergies, past medical, surgical, social and family histories were reviewedand updated as appropriate. HPI Patient here today because she wants to stop smoking. Patient also complains of her ears clogged. States she cannot hear and finished an antibiotic yesterday. Was seen at [place] in [place] for swellingin jaw, chest pain, and chills. Seen on 11/08. EKG NSR. Reports having pain in left neck/shoulder that resolved with antibiotic. Denies any further chest pain. Finished her antibiotic yesterday. Reports going to see an oral surgeon in [place] tomorrow for evaluation of dental abscess. Reports having some trouble hearing for the past few months. States this is getting worse and thinks her ears may be impacted. Reports smoking 1 pack of cigarettes per day. States she has not been able to cut back on her own, but has tried. Body mass index is 31.28 kg/m .. I discussed her BMI. She has been counseled in the office during this visit . PHQ: PHQ-2 Total Score: 0 Interpretation of Total Score Depression Severity: 1-4 = Minimal depression, 5-9 = Mild depression, 10-14 = Moderate depression, 15-19 = Moderately severe depression, 20-27 = Severe depression Depression screening was performed with standardized tool: Screening score indicates no depression. Review of Systems HENT: Positive for hearing loss. Physical Exam Constitutional: She is oriented to person, place, and time. She appears well- developed and well-nourished. HENT: Right Ear: Tympanic membrane normal. Left Ear: Tympanic membrane normal. Cardiovascular: Normal rate, regular rhythm and normal heart sounds. Pulmonary/Chest: Effort normal and breath sounds normal. Neurological: She is alert and oriented to person, place, and time. Skin: Skin is warm and dry. Psychiatric: She has a normal mood and affect. Nursing note and vitals reviewed. Assessment: Dk was seen today for ear fullness and nicotine dependence. Diagnoses and all orders for this visit: Bilateral hearing loss, unspecified hearing loss type - Ambulatory Referral to ENT; Future BMI 31.0-31.9,adult Encounter for smoking cessation counseling - nicotine (NICODERM CQ) 21 MG/24HR; Place 1 patch onto the skin every 24 hours. Plan: 1. Ear exam unremarkable. Refer to ENT due to ongoing issue. 2. See above. 3. Trial nicotine patch. Return if symptoms worsen or fail to improve, for as scheduled. documented in this encounter Assessments Diagnosis Encounter for well woman exam with routine gynecological exam Smoker Tobacco use disorder Screening for STD (sexually transmitted disease) Screening examination for venereal disease Negative test examination or test, negative result Breast tenderness in female Mastodynia Dense breast tissue BMI 31.0-31.9,adult Body Mass Index 31.0-31.9, adult Diagnosis BMI 31.0-31.9,adult Body Mass Index 31.0-31.9, adult Bilateral hearing loss, unspecified hearing loss type Encounter for smoking cessation counseling Counseling on substance use and abuse Diagnosis Fatigue, unspecified type Hyperglycemia Other abnormal glucose Diagnosis Chronic left shoulder pain Pain in joint, shoulder region Reason for Referral Status Reason Specialty Diagnoses / Procedures Referred By Contact Referred To Contact Open Otolaryngology Diagnoses Bilateral hearing loss, unspecified hearing loss type Paris Mccann APRN [address] [place] [address] Status Reason Specialty Diagnoses / Procedures Referred By Contact Referred To Contact Open Physical Therapy Diagnoses Chronic left shoulder pain Corydemetri ParisCHELE arenas [address] [place] [address] Health Concerns Infection Onset Date Last Indicated Resolved Time COVID-19 Rule-Out 06/11/2022 06/11/2022 Infection Onset Date Last Indicated Resolved Time COVID-19 Rule-Out 11/30/2022 11/30/2022 Additional Source Comments INFORMATION SOURCE (unrecogn ized section and content) DATE CREATED AUTHOR AUTHOR'S ORGANIZ ATION 04/01/2018 [facility] DATE CREATED AUTHOR AUTHOR'S ORGANIZ ATION 09/26/2018 [facility] DATE CREATED AUTHOR AUTHOR'S ORGANIZ ATION 07/20/2020 [place] DATE CREATED AUTHOR AUTHOR'S ORGANIZ ATION 07/11/2023 [facility] DATE CREATED AUTHOR AUTHOR'S ORGANIZ ATION 12/08/2023 [facility] Reason for Visit (unrecogniz ed section and content) Reason Comments Ear Fullness Nicotine Dependence Reason Comments Results Reason Comments Headache head congestion, sor e throat, bodyaches and fever x 4 days Reason Comments Head Congestion [place], cough, runny nos e x2 days Reason Comments Pain, Throat Pt reported fever, n jv congestion x2 days. Reason Comments Vaginal Problem Pt reported odor, ir ritation x3 days. Reason Comments Head Congestion [place], sinus drainage, ST x5 days Reason Comments Sore Throat Fever x couple weeks Reason Comments Sore Throat fever and headache x over 1 month Care Teams (unrecognized sec tion and content) Fudger Relationship Specialty Start Date End Date Paris Mccann APRN [address] [place] [address] PCP - General Family Medicine 11/02/19 Rachelle Miranda MA 01/05/21 Fudger Relationship Specialty [place] [address] [place] [address] PCP - General Internal Medicine 11/12/21 Source Comments (unrecognize d section and content) In the event this informatio n is protected by the Federal Confidentiality of Alcohol and Drug Abuse Patient Records regulations: The Federal rules restrict any use of the information to criminally investigate or prosecute any alcohol or drug abuse patient.[facility] the event this information is protected by the Federal Confidentiality of Alcohol and Drug Abuse Patient Records regulations: The Federal rules restrict any use of the information to criminally investigate or prosecute any alcohol or drug abuse patient.[facility] Hospital[facility] the event this information is protected by the Federal Confidentiality of Alcohol and Drug Abuse Patient Records regulations: The Federal rules restrict any use of the information to criminally investigate or prosecute any alcohol or drug abuse patient.[facility] the event this information is protected by the Federal Confidentiality of Alcohol and Drug Abuse Patient Records regulations: The Federal rules restrict any use of the information to criminally investigate or prosecute any alcohol or drug abuse patient.[facility] Hospital[facility] the event this information is protected by the Federal Confidentiality of Alcohol and Drug Abuse Patient Records regulations: The Federal rules restrict any use of the information to criminally investigate or prosecute any alcohol or drug abuse patient.[facility] the event this information is protected by the Federal Confidentiality of Alcohol and Drug Abuse Patient Records regulations: The Federal rules restrict any use of the information to criminally investigate or prosecute any alcohol or drug abuse patient.[facility] the event this information is protected by the Federal Confidentiality of Alcohol and Drug Abuse Patient Records regulations: The Federal rules restrict any use of the information to criminally investigate or prosecute any alcohol or drug abuse patient.[facility] Hospital[facility] the event this information is protected by the Federal Confidentiality of Alcohol and Drug Abuse Patient Records regulations: The Federal rules restrict any use of the information to criminally investigate or prosecute any alcohol or drug abuse patient.[facility] FOR RECORDS PERTAINING TO PATIENTS WHO ARE OR HAVE BEEN ENROLLED IN A CHEMICAL DEPENDENCY/SUBSTANCEABUSE PROGRAM, SOME INFORMATION MAY BE OMITTED. This clinical summary was aggregated from multiple sources. Caution should be exercised in using it in the provision of clinical care. This summary normalizes information from multiple sources, and as a consequence, information in this document may materially change the coding, format and clinical context of patient data. In addition, data may be omitted in some cases. CLINICAL DECISIONS SHOULD BE BASED ON THE PRIMARY CLINICAL RECORDS. [facility] [employer] [facility]. provides no warranty or guarantee of the accuracy or completeness of information in this document.
[2023-12-12 18:10] LABS: HIV - WCH Non-Reactive (Nonreactive); Hepatitis C Antibody Non-Reactive (Nonreactive); Syphilis Antibodies Non-reactive
[2023-12-17 19:08] LABS: HSV 2 IgG < 0.91 index (0.00-0.90); T3 Reverse 19.7 ng/dL (9.2-24.1)
== END | disposition home or self-care (01) ==
LOC: BIMLAB 16:06
PROVIDERS: PCP Nurse Practitioner; Visit Provider Nurse Practitioner
DX: Z00.00 Encounter for general adult medical examination without abnormal findings (principal); Z11.3 Encounter for screening for infections with a predominantly sexual mode of transmission; K59.00 Constipation, unspecified
CPT/HCPCS: 36415; 80053; 80061; 83735; 84439; 84443; 84482; 85025; 86695; 86696; 86703; 86780; 86803; 87070; 87491; 87591

== ENCOUNTER → 2023-12-19 | Outpatient (CLI) | payer MEDICAID, SELFPAY | END | disposition home or self-care (01) | PROVIDERS: PCP Nurse Practitioner; Referring Provider Nurse Practitioner; Visit Provider Nurse Practitioner | DX: K59.00 Constipation, unspecified (principal) | CPT/HCPCS: 82274 ==

== ENCOUNTER → 2024-02-18 | Outpatient (CLI) | payer MEDICAID, SELFPAY ==
--- NOTE | 2024-02-18 12:53 | RAD_ITS ---
STUDY: X-RAY - LEFT TIBIA AND FIBULA REASON FOR EXAM: Female, 33 years old. left lower leg pain TECHNIQUE: AP and lateral view(s) of the tibia and fibula were obtained. COMPARISON: None. FINDINGS: Normal visualized tibia. Normal visualized fibula. The soft tissue structures are unremarkable. RAD/Tibia & Fibula 2 Views IMPRESSION: Normal x-ray examination of the tibia and fibula. Electronically Signed: Que Li MD at 22:27 EDT ,
== END | disposition home or self-care (01) ==
PROVIDERS: PCP Nurse Practitioner; Referring Provider Nurse Practitioner; Visit Provider Nurse Practitioner
DX: M79.605 Pain in left leg (principal)
CPT/HCPCS: 73590

== ENCOUNTER 2024-03-09 12:48 | Outpatient (RCR) | payer MEDICAID, SELFPAY ==
--- NOTE | 2024-03-09 16:07 | HP.PTEVAL_ITS ---
Patient's Visit Information Visit Information Visit Information: DK PENA is a 33 year old F referred to Physical Therapy by NIR Hong with a diagnosis of PAIN IN LEG LEG. Date of Evaluation: 03/09/24 Physical Therapist: Pete Thompson, PT, Cert MDT, OCS Visit Plan Frequency: 1-2x /Week Duration: 4 Weeks Plan: PT INTERVENTIONS STRENGTHENING ANKLE STABILIZERS ,FUNCTIONAL STRENGTHENING ,STRETCHING G-S ,FOAM ROLLING CALF /IT BAND AND INITIATE RUNNING PROGRAM EVELIO Subjective Subjective: This 33 y/o female present to physicals therapy with with left > right lower leg pain. Patient started running in January from running for about 1 month 3x week walking/jog the couch to [address] and stop running and had x-rays tibia/fibula -. Location anterior tibia described as ache/burning.Since stopped running but pain increases with walking < 1 mile before pain worse. Patient did have some pain at night. Patient denies pares thesia/tingling-. Patient injury back in December carrying dresser up stairs. Patient condition affects QOL /function/job demands. 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 Left Lower Extremity: Pain Intensity (Out of 10): 2 Pain Intensity Range: 10 Objective Objective: POSTURE: ( frontal plane mechanics ) normal arch GAIT: reciprocal pattern JOGGING: runs on forefoot PALPATION: tender G-S ANKLE ROM: dorsiflexion 5 degrees ,plantar flexion 65 degrees ,eversion 5 degrees ,inversion 40 degrees MMT: ankle stabilizers 5/5 ,hip abd 5/5 ,quads/hams 5/5 ,hip extension 4/5 HIP ROM: IR 60 Degrees hip flexion 120 degrees ,ER 65 degrees FLEXABILITY: G-S mild tight Special Tests L/S Slump test left side: Negative L/S Slump test right side: Negative L/S Left Straight Leg Raise: Negative L/S Right Straight Leg Raise: Negative Lumbar Standing: Flexion - Mechanical Response: No effect Lumbar Standing: Flexion - Symptoms During Testing: No effect Lumbar Standing: Flexion - Symptoms After Testing: No effect Lumbar Standing: Extension - Mechanical Response: No effect Lumbar Standing: Extension - Symptoms During Testing: No effect Lumbar Standing: Extension - Symptoms After Testing: No effect Lumbar Standing: Right Side Glides - Mechanical Response: No effect Lumbar Standing: Right Side [place] - Symptoms During Testing: No effect Lumbar Standing: Right Side [place] - Symptoms After Testing: No effect Lumbar Standing: Left Side [place] - Mechanical Response: No effect Lumbar Standing: Left Side [place] - Symptoms During Testing: No effect Lumbar Standing: Left Side [place] - Symptoms After Testing: No effect R Hip Scour: Positive R Hip Quadrant - Intraarticular Pathology: Negative L Hip Scour: Negative L Hip Quadrant - Intraarticular Pathology: Negative Balance/Special Test Scores Lower Extremity Functional Score: 42 Goals Goal 1:: Patient to be I with HEP for skelton splints Goal Time Frame: 4-6 Weeks Goal 2:: Patient to demonstrate 50% improvement with walking and resume possible running program Goal Time Frame: 4-6 Weeks Goal 3:: Patient to improve LFES score by 5 points to improve QOL and function Goal Time Frame: 4-6 Weeks Goal 4:: Patient be able to walk without pain and initiate running program Goal Time Frame: 4-6 Weeks Rehabilitation Potential Physical Therapy Diagnosis: Patient has lower leg pain worse in left side in tibia possible skelton splints which caused from starting running and continue with generalized walking has pain skelton pain, r/o back thus patient will benefit from skilled PT Rehabilitation Potential: Good Anticipated Interventions Patient/Client Instruction: Educate patient on: Condition and Plan of Care For the Purpose of:: To decrease pain, To improve muscle performance and motor function, To increase tolerance to activity/condition/position, To improve ability of physical actions for home/community/work/leisure, To improve health of tissue, To decrease soft tissue restriction, To increase flexibility/ROM and To prevent re-injury Other: RUNNING Therapeutic Exercise to Include: Strength training, Power training, Endurance training, Balance training and Flexibilty training Comment: ANKLE ,AND FUNCTIONAL For the Purpose of:: To decrease pain, To increase ROM, To improve muscle performance and motor function, To improve ability to perform ADL's, To increase tolerance to activity/condition/position, To improve ability of physical actions for home/community/work/leisure, To improve health of tissue, To decrease soft tissue restriction, To increase flexibility/ROM, To improve endurance and To improve balance Text: Thank you for the opportunity to evaluate your patient. For Medicare and Medicare HMO plans, please review the plan of care and approve it. It will need to be FAXED BACK to us at [phone] for Medicare purposes. For Medicare only, by signing this I certify the plan of care. Please let me know if there are questions or concerns regarding this plan of care. Physician Signature: Date:
--- NOTE | 2024-05-07 13:32 | HP.PT.NRP ---
Patient Information Patient Information: DK PENA was seen in my office for initial evaluation on 03/09/24. The following Plan of Care was established for this patient: POC Established Initial Frequency: 1-2x /Week Initial Duration: 4 Weeks Anticipated Interventions Patient/Client Instruction: Educate patient on: Condition and Plan of Care For the Purpose of:: To decrease pain, To improve muscle performance and motor function, To increase tolerance to activity/condition/position, To improve ability of physical actions for home/community/work/leisure, To improve health of tissue, To decrease soft tissue restriction, To increase flexibility/ROM and To prevent re-injury Other: RUNNING Therapeutic Exercise to Include: Strength training, Power training, Endurance training, Balance training and Flexibilty training For the Purpose of:: To decrease pain, To increase ROM, To improve muscle performance and motor function, To improve ability to perform ADL's, To increase tolerance to activity/condition/position, To improve ability of physical actions for home/community/work/leisure, To improve health of tissue, To decrease soft tissue restriction, To increase flexibility/ROM, To improve endurance and To improve balance Last Seen Last Seen: This patient was last seen in our office . Pertinent comments regarding their Physical therapy will appear below: Patient was seen for PT for leg pain for HEP to start running At this point I will be discontinuing this patient from physical therapy. I would be happy to see this patient again in the future if found appropriate by the physician. Thank you! Pete Thompson, PT, Cert MDT, OCS Balance/Gait/Functional tests Balance/Special Test Scores Lower Extremity Functional Score: 42
== END 2024-03-09 19:00 | disposition home or self-care (01) ==
LOC: PT 12:48
PROVIDERS: PCP Nurse Practitioner; Referring Provider Nurse Practitioner; Visit Provider Nurse Practitioner
DX: M79.605 Pain in left leg (principal)
CPT/HCPCS: 97110; 97161

== ENCOUNTER 2024-03-23 16:00 | Emergency (ER) | payer MEDICAID, SELFPAY ==
[2024-03-23 16:01] VITALS: BP 116/72; PULSE 79; RESP 18; TEMP 35.8; O2SAT 97; BMI 24.0
--- NOTE | 2024-03-23 16:10 | EKG12_ITS ---
Test Reason : PALP Blood Pressure : / mmHG Vent. Rate : 074 BPM Atrial Rate : 074 BPM P-R Int : 162 ms QRS Dur : 092 ms QT Int : 374 ms P-R-T Axes : 074 072 045 degrees QTc Int : 415 ms Sinus rhythm with marked sinus arrhythmia Otherwise normal ECG Confirmed by TYREE GONZALEZ, JORDAN ([id number]), mapping editor ELLI RING ([id number]) on 03/25/2024 8:21:20 AM Referred By: Confirmed By:JORDAN CLEMENTS MD
--- NOTE | 2024-03-23 16:11 | EDS_ITS ---
HPI History of Present Illness Chief Complaint: Palpitations Informant: patient Narrative Narrative: 33-year-old female presents saying she feels like she is vibrating on the inside. She states it has been off-and-on for months, she noticed it last night as well and then today she was lying down and noticed it was a lot worse and became concerned enough to come to the ER. She states she has noticed no dyspnea or nausea/vomiting with it, no lightheadedness or presyncope/syncope associated with the symptoms although she states incidentally today she is feeling lightheaded. She states she feels it throughout her chest and upper back down to maybe the epigastrium but nowhere else. She states when she is doing things she does not notice anything, she usually notices it when she is remaining still. She has a history of bipolar and anxiety and takes medications for all of this, and she feels like this could be anxiety but she is not sure and wants to make sure that it is nothing organic/dangerous. She states 2 days ago she started clonidine for anxiety, which is new for her. [facility] Medical History Borderline personality disorder Adjustment disorder DANA (generalized anxiety disorder) Persistent depressive disorder Nicotine dependence, cigarettes, uncomplicated Home Medications ?Medication ?Instructions ?Recorded ?Last Taken ?Type tretinoin 0.025 % topical cream 1 applic topical QHS #20 grams 12/12/23 Unknown Rx lumateperone 10.5 mg capsule 21 mg PO DAILY 01/08/24 Unknown History (Caplyta) omeprazole 20 mg capsule,delayed 20 mg PO DAILY 01/08/24 Unknown History release buspirone 5 mg tablet 5 mg PO QDAY 02/17/24 Unknown History docusate sodium 50 mg capsule 50 mg PO DAILY 02/17/24 Unknown History (Colace Clear) lamotrigine 25 mg tablet 50 mg PO QDAY 02/17/24 Unknown History magnesium 250 mg tablet 250 mg PO DAILY 02/17/24 Unknown History polyethylene glycol 3350 17 4 g PO DAILY #119 grams 02/17/24 Unknown Rx gram/dose oral powder Allergy/AdvReac Type Severity Reaction Status Date / Time fluoxetine (From Prozac) Allergy Angioedema Verified 03/23/24 16:01 nickel Allergy Rash Verified 03/23/24 16:01 codeine AdvReac Other Verified 03/23/24 16:01 Family History Mother Anxiety Arthritis Autoimmune disease Depressed Diabetes Skin cancer Mental disorder Psychiatric care Father Anxiety Asthma Hypertension High cholesterol Skin cancer Social History household members: children housing: house current occupational status: unemployed Smoking Status: Current some day smoker tobacco type: e-cigarettes alcohol intake: never substance use type: does not use what type of physical activity do you participate in: walking frequency: 3-4 times per week seatbelt use: always do you feel safe at home: Yes ROS ROS ED Constitutional Constitutional ED: Denies chills or fever(s) Eyes Eyes: Denies change in vision or diplopia ENT ENT ED: Denies rhinorrhea or sore throat Cardiovascular Cardiovascular: Reports chest pain; Denies palpitations Respiratory/Chest Respiratory/Chest: Denies cough or dyspnea Gastrointestinal Gastrointestinal: Reports abdominal pain; Denies diarrhea, nausea or vomiting Genitourinary Genitourinary ED: Denies dysuria or hematuria Musculoskeletal Musculoskeletal: Denies back pain or neck pain Integumentary Denies abscess or rash Neurologic Neurologic: Denies headache(s), paresthesias or weakness Psychiatric Psychiatric: Reports anxiety; Denies suicidal thoughts EXAM Physical Exam Const Vital Signs: 03/23/24 16:01 03/23/24 16:22 Temperature 96.4 F L Temperature Source Temporal Pulse Rate 79 Respiratory Rate 18 Respiratory Effort Normal Blood Pressure 116/72 Blood Pressure Mean 86 Pulse Ox 97 Oxygen Delivery Method Room Air Positive well nourished and well developed General Appearance ED: well developed and NAD HEENT Reports moist mucous membranes normocephalic and atraumatic Eyes PERRL and EOMs intact bilaterally Neck full ROM and supple Resp normal respiratory effort and clear to auscultation bilaterally Cardio regular rate, regular rhythm and no murmurs Rate: Negative for tachycardic GI non-tender and non-distended Auscultation: normoactive bowel sounds Palpation: soft Back/Spine no CVA tenderness General Back: other FROM Extremity normal to inspection General Extremety ED: Negative for edema, pulses abnormal or tenderness General Extremity: Negative for edema or pulses abnormal Neuro oriented x3, CN's II-XII intact bilaterally and no sensory deficits noted Sensorium / Orientation: awake and alert Motor Exam: strength 5/5 throughout and no fasciculations; Negative for tremor Psych Psych Narrative: Calm, not overly anxious Skin no rashes or lesions noted and no wounds MDM MDM MDM Narrative Medical decision making narrative: Differential includes cardiac etiology such as palpitations, ectopy, dysrhythmias, did an EKG she is currently having symptoms and the EKG is normal, showing a sinus arrhythmia. I ran some blood work, looking for electrolyte disturbances that could cause muscle fasciculations namely potassium and calcium issues or imbalances, those are all normal, and while we were obtaining blood work ran her blood counts which are normal and a troponin which is less than 3. 2 view chest x-ray normal my interpretation narrow mediastinum no infiltrates. She is comfortable with normal vital signs. She is reassured, she states that the symptoms may have coincided 6 months ago when she started a new medication Caplyta. She states that the benefits of this medication have been really good for her and outweigh her desire to stop it and see if the symptoms resolve. She will follow-up with her doctor. I do not think that these are dystonic reaction symptoms or need to stop the medication to prevent a medical emergency. Lab Data Attestation: I reviewed the patient's lab results. Labs: Laboratory Results - last 24 hr 03/23/24 16:16 WBC 8.7 RBC 4.19 L Hgb 13.3 Hct 39.4 MCV 94.0 MCH 31.7 MCHC 33.8 RDW Std Deviation 42.1 RDW Coeff of Olamide 12.1 Plt Count 254 MPV 8.9 Immature Gran % (Auto) 0.100 Neut % (Auto) 63.4 Lymph % (Auto) 28.3 [place] % (Auto) 5.1 Eos % (Auto) 2.4 Baso % (Auto) 0.7 Absolute Neuts (auto) 5.5 Absolute Lymphs (auto) 2.47 Nucleated RBC % 0 Sodium 136 Potassium 3.7 Chloride 105 Carbon Dioxide 28.0 Anion Gap 3 L BUN 9 Creatinine 0.78 Estim Creat Clear Calc 93.17 Est GFR (MDRD) Af Amer 110 Est GFR (MDRD) Non-Af 91 BUN/Creatinine Ratio 11.6 Glucose 98 Calcium 8.9 Troponin I High Sens < 3 L Radiography Diagnostic Testing: Clinical Impression(s) from Imaging Studies Chest X-Ray 03/23/24 16:25 IMPRESSION: No radiographic evidence of acute cardiopulmonary disease. Electronically Signed: Farrukh Sanford DO at 17:14 EDT , Rhythm Strip Rhythm Strip: Sinus Rhythm Rate: 80 Ectopy: None EKG Initial EKG: Attestation: I personally reviewed and interpreted this EKG as follows: Interpretation: No Acute Injury Pattern and Sinus Arrythmia Comments: Otherwise normal EKG Discharge Plan Triage Chief Complaint: Palpitations ED Provider: Tristen Thibodeaux Dx/Rx/DC Orders Clinical Impression: Chest discomfort Instructions: ED Chest Pain, Noncardiac Prescriptions: No Action tretinoin 0.025 % cream 1 applic topical QHS Qty: 20 1RF Rx Instructions: start with every other night x 2 weeks, if tolerating may increase to nightly Caplyta 10.5 mg capsule 21 mg PO DAILY omeprazole 20 mg capsule,delayed release(DR/EC) 20 mg PO DAILY buspirone 5 mg tablet 5 mg PO QDAY lamotrigine 25 mg tablet 50 mg PO QDAY magnesium 250 mg tablet 250 mg PO DAILY Colace Clear 50 mg capsule 50 mg PO DAILY polyethylene glycol 3350 17 gram/dose powder 4 g PO DAILY Qty: 119 1RF Rx Instructions: Start with 1/2 capful, may increase to 1 capful to achieve 1 soft BM daily Primary Care Provider: Lianne Arrieta Referrals: Lianne Arrieta, TELEPHONE ANSWERING SERVICE OPERATOR-C [Primary Care Provider] - 1-2 Weeks Print Language: Tajik Disposition Disposition: Home, Self Care
--- NOTE | 2024-03-23 16:25 | RAD_ITS ---
INDICATION: chest pain EXAMINATION/TECHNIQUE: X-RAY - XR Chest 2 Views COMPARISON: FINDINGS: LINES/DEVICES: None. LUNGS: No consolidation, edema or effusion. No pneumothorax. MEDIASTINUM AND CARDIOVASCULAR STRUCTURES: Cardiac silhouette not enlarged. Central airways and mediastinal contour are unremarkable. BONES AND SOFT TISSUES: Unremarkable. RAD/Chest PA and Lateral IMPRESSION: No radiographic evidence of acute cardiopulmonary disease. Electronically Signed: Farrukh Sanford DO at 17:14 EDT ,
[2024-03-23 16:29] LABS: Absolute Lymphocyte Count 2.47 X10^3/uL (0.83-4.51); Absolute Neutrophil Count 5.5 X10^3/uL (2.0-7.7); Basophil# 0.06 X10^3/uL; Basophil% 0.7 % (0-1); Eosinophil# 0.21 X10^3/uL; Eosinophils% 2.4 % (0-5); Hematocrit 39.4 % (37-47); Hemoglobin 13.3 g/dL (12.0-15.0); Lymphocyte # 2.47 X10^3/ul (0.83-4.51); Lymphocyte % 28.3 % (19-41); Mean Corp Hgb Conc 33.8 g/dL (32-36); Mean Corpuscular Hgb 31.7 pg (27.0-32.0); Mean Platelet Vol. 8.9 fl (6.2-12.0); Monocyte# 0.45 X10^3/uL; Monocyte% 5.1 % (0-10); NRBC Flagged by Analyzer 0 % (0-5); Neutrophil # 5.54 X10^3/uL (2.7-7.7); Neutrophil % 63.4 % (47-70); Platelet Count 254 K/mm3 (150-450); RBC Distribution Width CV 12.1 % (11.6-14.6); RBC Distribution Width SD 42.1 fl (35.1-43.9); Red Blood Count 4.19 M/mm3 (4.2-5.4); White Blood Count 8.7 K/mm3 (4.4-11.0)
[2024-03-23 16:54] LABS: Anion Gap 3 (5-15); BUN 9 mg/dL (7-18); BUN/Creat Ratio 11.6 RATIO (10-20); Calcium,Total 8.9 mg/dL (8.5-10.1); Chloride 105 mmol/L (98-107); Creatinine, Serum 0.78 mg/dL (0.55-1.02); EST Glomerular Filtration Rate 91 mL/min (>60); Est Glom Filt Rate - Afr Amer 110 mL/min (>60); Estimated Creatinine Clearance 93.17 ml/min; Glucose 98 mg/dL (74-106); Potassium 3.7 mmol/L (3.5-5.1); Sodium Level 136 mmol/L (136-145); Troponin-I HS < 3 pg/mL (3.0-54.0)
[2024-03-23 17:45] VITALS: BP 111/77; PULSE 86; RESP 18; TEMP 36.6; O2SAT 96
== END 2024-03-23 17:52 | disposition home or self-care (01) ==
PROVIDERS: Emergency Provider Emergency Medicine; PCP Nurse Practitioner; Visit Provider Emergency Medicine
DX: R07.89 Other chest pain (principal); F60.3 Borderline personality disorder; F31.9 Bipolar disorder, unspecified; F17.210 Nicotine dependence, cigarettes, uncomplicated; Z79.899 Other long term (current) drug therapy; F41.1 Generalized anxiety disorder; F34.1 Dysthymic disorder; F43.20 Adjustment disorder, unspecified; F17.290 Nicotine dependence, other tobacco product, uncomplicated
CPT/HCPCS: 71046; 80048; 84484; 85025; 93005; 99284; A4216

== ENCOUNTER → 2024-06-17 | Outpatient (CLI) | payer MEDICAID, SELFPAY ==
--- NOTE | 2024-06-17 10:30 | RAD_ITS ---
STUDY: X-RAY - LUMBAR SPINE REASON FOR EXAM: Female, 34 years old. Low back pain. TECHNIQUE: 2 view(s) of the lumbar spine were obtained. COMPARISON: None FINDINGS: Normal lumbar lordosis. There is no substantial scoliosis. There is a normal alignment of the vertebrae. Spina bifida occulta of S1, a normal variant. Intervertebral disc space narrowing at L2-3 with small osteophytes. Minimal intervertebral disc space narrowing at L5-S1 without osteophytes. The soft tissue structures are normal. RAD/Lumbar Spine 2 or 3 Views IMPRESSION: Spina bifida occulta with mild disc degeneration at L2-3 and L5-S1. Electronically Signed: Jony Matos MD at 10:16 EDT ,
== END | disposition home or self-care (01) ==
PROVIDERS: PCP Nurse Practitioner; Referring Provider Nurse Practitioner; Visit Provider Nurse Practitioner
DX: M54.50 Low back pain, unspecified (principal)
CPT/HCPCS: 72100

== ENCOUNTER → 2024-08-05 | Outpatient (CLI) | payer MEDICAID, SELFPAY ==
[2024-08-05 10:21] LABS: Absolute Lymphocyte Count 2.02 X10^3/uL (0.83-4.51); Absolute Neutrophil Count 2.4 X10^3/uL (2.0-7.7); Basophil# 0.05 X10^3/uL; Hematocrit 40.3 % (37-47); Hemoglobin 12.7 g/dL (12.0-15.0); Lymphocyte # 2.02 X10^3/ul (0.83-4.51); Lymphocyte % 40.1 % (19-41); Mean Corp Hgb Conc 31.5 g/dL (32-36); Mean Corpuscular Hgb 29.6 pg (27.0-32.0); Mean Corpuscular Volume 93.9 fL (81-99); Mean Platelet Vol. 8.9 fl (6.2-12.0); Monocyte# 0.36 X10^3/uL; Monocyte% 7.1 % (0-10); NRBC Flagged by Analyzer 0 % (0-5); Neutrophil % 47.6 % (47-70); Platelet Count 289 K/mm3 (150-450); RBC Distribution Width SD 41.6 fl (35.1-43.9); Red Blood Count 4.29 M/mm3 (4.2-5.4)
[2024-08-05 10:48] LABS: Vitamin B12 796 pg/mL (211-911); Vitamin D,25 Hydroxy 30.2 ng/mL
[2024-08-05 11:41] LABS: ALB/GLOB Ratio 1.2 RATIO (0.9-2.4); AST(SGOT) 16 U/L (15-37); Alanine Aminotransfer ALT/SGPT 23 U/L (13-56); Albumin, Serum 3.8 g/dL (3.2-5.0); Alkaline Phosphatase 34 U/L (45-117); Anion Gap 5 (5-15); BUN 15 mg/dL (7-18); BUN/Creat Ratio 16.1 RATIO (10-20); Calcium,Total 9.1 mg/dL (8.5-10.1); Chloride 106 mmol/L (98-107); Cholesterol 147 mg/dL (200); Creatinine, Serum 0.93 mg/dL (0.55-1.02); EST Glomerular Filtration Rate 74 mL/min (>60); Est Glom Filt Rate - Afr Amer 89 mL/min (>60); Ferritin 5 ng/mL (8-252); Free T3 2.3 pg/mL (2.18-3.98); Globulin 3.2 g/dL (2.2-4.2); Glucose 95 mg/dL (74-106); High Density Lipoprotein 74 mg/dL; Iron 135 ug/dL (50-170); Iron Binding Capacity,Total 454 ug/dL (250-450); PERCENT IRON SATURATION 29.7 % (15.0-55.0); Potassium 4.2 mmol/L (3.5-5.1); Sodium Level 137 mmol/L (136-145); T4 Total, Thyroxin 8.7 ug/dL (4.8-13.9); Triglycerides 51 mg/dL; Very Low Density Lipoprotein 10 mg/dL (5-40)
== END | disposition home or self-care (01) ==
PROVIDERS: PCP Nurse Practitioner; Referring Provider Registered Nurse; Visit Provider Registered Nurse
DX: R41.3 Other amnesia (principal); Z79.899 Other long term (current) drug therapy
CPT/HCPCS: 36415; 80053; 80061; 82306; 82607; 82728; 82746; 83540; 83550; 84436; 84443; 84481; 85025

== ENCOUNTER → 2024-08-13 | Outpatient (CLI) | payer MEDICAID, SELFPAY | END | disposition home or self-care (01) | LOC: PSN 08:29 | PROVIDERS: PCP Nurse Practitioner; Referring Provider Psychiatry & Neurology Neurology; Visit Provider Psychiatry & Neurology Neurology | DX: R40.4 Transient alteration of awareness (principal) | CPT/HCPCS: 95819 ==

== ENCOUNTER 2024-11-13 16:36 | Emergency (ER) | payer MEDICARE, MEDICAID, SELFPAY ==
[2024-11-13 16:36] VITALS: BP 119/81; PULSE 88; RESP 18; TEMP 35.8; O2SAT 99; BMI 23.8
--- NOTE | 2024-11-13 17:35 | EKG12_ITS ---
Test Reason : PALPITATIONS Blood Pressure : */* mmHG Vent. Rate : 78 BPM Atrial Rate : 78 BPM P-R Int : 160 ms QRS Dur : 96 ms QT Int : 356 ms P-R-T Axes : 70 80 27 degrees QTcB Int : 405 ms Normal sinus rhythm Possible Left atrial enlargement Borderline ECG Confirmed by TYREE GONZALEZ, JORDAN ([id number]), digital editor STEVAN HINTON ([id number]) on 11/15/2024 6:32:37 AM Referred By: TIFFANY/AR Confirmed By: JORDAN CLEMENTS MD
--- NOTE | 2024-11-13 17:58 | EX.ED.DYSGE1 ---
HPI History of Present Illness Chief Complaint: Palpitations Detail of Chief Complaint: Palpitation that occurred at rest after eating Informant: patient Onset/Context/Timing Onset: Today and Hours Context: Sudden Onset Timing: Intermittent and Lasts (1 hour) Quality: Heartbeat with skipping Location: Chest Current Severity: Gone Maximum Severity: Moderate Worsened by: Nothing Relieved by: Not applicable Associated Symptoms Associated Symptoms: None Narrative Narrative: Patient is a 34-year-old woman. She vapes. She has history of anxiety. She presents because of skipped beats. This lasted approximately an hour. She had no associated symptoms. She did had no orthostatic symptoms. She is never experienced this before. She denies drug use. She did start a new medication today, Trileptal. Recent Illness/Hospitalization: No PFSH PFSH Medical History Borderline personality disorder Adjustment disorder DANA (generalized anxiety disorder) Persistent depressive disorder Nicotine dependence, cigarettes, uncomplicated Home Medications ?Medication ?Instructions ?Recorded ?Last Taken ?Type lamotrigine 25 mg tablet 25 mg PO QDAY 04/30/24 Unknown History lumateperone 10.5 mg capsule 10.5 mg PO DAILY 04/30/24 Unknown History (Caplyta) sennosides 8.6 mg tablet (Natural 8.6 mg PO .QOD 08/05/24 Unknown History Senna Laxative) Allergy/AdvReac Type Severity Reaction Status Date / Time fluoxetine (From Prozac) Allergy Angioedema Verified 11/13/24 16:38 nickel Allergy Rash Verified 11/13/24 16:38 codeine AdvReac Other Verified 11/13/24 16:38 Family History Mother Anxiety Arthritis Autoimmune disease Depressed Mental disorder Psychiatric care Rheumatoid arthritis Father Asthma Hypertension High cholesterol Grandfather Skin cancer Grandmother Diabetes Dementia Social History household members: children housing: house current occupational status: unemployed Smoking Status: Current some day smoker tobacco type: e-cigarettes alcohol intake: never substance use type: does not use what type of physical activity do you participate in: walking and running frequency: 3-4 times per week seatbelt use: always do you feel safe at home: Yes ROS ROS ED Constitutional Constitutional ED: Denies chills, fever(s), subjective or sweats Eyes Eyes: Denies blurry vision or change in vision ENT ENT ED: Denies rhinorrhea or sore throat Cardiovascular Cardiovascular: Reports palpitations; Denies chest pain or racing heartbeat Respiratory/Chest Respiratory/Chest: Denies cough, dyspnea or dyspnea on exertion Gastrointestinal Gastrointestinal: Denies abdominal pain, diarrhea, melena, nausea or vomiting Neurologic Neurologic: Denies headache(s) or paresthesias Psychiatric Psychiatric: Reports anxiety EXAM Physical Exam Const Vital Signs: 11/13/24 16:36 11/13/24 18:04 11/13/24 18:36 Temperature 96.5 F L Temperature Source Temporal Pulse Rate 88 77 Respiratory Rate 18 15 Respiratory Effort Normal Non-Labored Blood Pressure 119/81 H 115/76 Blood Pressure Mean 93 89 Pulse Ox 99 100 Oxygen Delivery Method Room Air Room Air 11/13/24 18:36 Temperature 98.0 F Temperature Source Pulse Rate 88 Respiratory Rate 18 Respiratory Effort Blood Pressure 135/90 H Blood Pressure Mean 105 Pulse Ox 97 Oxygen Delivery Method Positive well nourished and well developed General Appearance ED: well developed; Negative for cyanotic, diaphoretic or pallor HEENT Reports moist mucous membranes HEENT Narrative: Head is atraumatic normocephalic. Ears normal. Nares patent. Eyes PERRL and EOMs intact bilaterally General Eye ED: Negative for pale conjunctiva or scleral icterus Neck no lymphadenopathy, supple and no JVD Chest Wall inspection of chest normal and palpation of chest normal Resp normal respiratory effort and clear to auscultation bilaterally Cardio regular rate, regular rhythm, S1 normal heart sound, S2 normal heart sound and no murmurs GI normal to inspection, nondistended, normoactive bowel sounds, non-tender, non-distended and no masses; Negative for hepatosplenomegaly Extremity normal to inspection Neuro oriented x3 and CN's II-XII intact bilaterally Sensorium / Orientation: alert Psych mental status grossly normal Psych Narrative: Patient reports that she is anxious. Patient states she was experiencing the palpitations when I was in the room. She was on the monitor and she was in a normal sinus rhythm with no ectopy. Skin no rashes or lesions noted, no wounds and skin turgor normal General Skin Exam: Negative for jaundice or pallor MDM MDM MDM Narrative Medical decision making narrative: Differential diagnosis is anxiety, electrolyte abnormality, possible preexcitation syndrome. Lab Data Attestation: I reviewed the patient's lab results. Lab results narrative: Basic metabolic panel is normal. Labs: Laboratory Results - last 24 hr 11/13/24 17:47 Sodium 141 Potassium 3.8 Chloride 106 Carbon Dioxide 30.0 Anion Gap 5 BUN 11 Creatinine 0.72 Estim Creat Clear Calc 100.00 Est GFR (MDRD) Af Amer 119 Est GFR (MDRD) Non-Af 99 BUN/Creatinine Ratio 15.2 Glucose 100 Calcium 9.1 Treatment and Re-Evaluation :: Patient and sister were informed of results. Plan is to discharge to home. Discharge Plan Triage Chief Complaint: Palpitations ED Provider: Travis Lara Dx/Rx/DC Orders Clinical Impression: Heart palpitations, History of anxiety disorder Instructions: ED Palpitations Prescriptions: No Action Caplyta 10.5 mg capsule 10.5 mg PO DAILY lamotrigine 25 mg tablet 25 mg PO QDAY sennosides [Natural Senna Laxative] 8.6 mg tablet 8.6 mg PO .QOD Rx Instructions: QOD or twice a week Primary Care Provider: Care Physician,No Primary Referrals: Care Physician,No Primary [Primary Care Provider] - Activity Restrictions/Additional Instructions: 1. Follow-up with your doctor as needed. 2. If your heart rate is greater than 120, you become sweaty or lightheaded with palpitations return to the Emergency Department otherwise follow-up with your doctor 3. The medication you were started on is not associated with palpitation Print Language: Albanian Disposition Disposition: Home, Self Care Discharge Date/Time: 11/13/24 18:43
[2024-11-13 18:04] VITALS: BP 115/76; PULSE 77; RESP 15; O2SAT 100
[2024-11-13 18:33] LABS: Anion Gap 5 (5-15); BUN 11 mg/dL (7-18); BUN/Creat Ratio 15.2 RATIO (10-20); Calcium,Total 9.1 mg/dL (8.5-10.1); Chloride 106 mmol/L (98-107); Creatinine, Serum 0.72 mg/dL (0.55-1.02); EST Glomerular Filtration Rate 99 mL/min (>60); Est Glom Filt Rate - Afr Amer 119 mL/min (>60); Glucose 100 mg/dL (74-106); Potassium 3.8 mmol/L (3.5-5.1); Sodium Level 141 mmol/L (136-145)
[2024-11-13 18:36] VITALS: BP 135/90; PULSE 88; RESP 18; TEMP 36.7; O2SAT 97
== END 2024-11-13 18:43 | disposition home or self-care (01) ==
PROVIDERS: Emergency Provider Emergency Medicine; Visit Provider Emergency Medicine
DX: R00.2 Palpitations (principal); F41.9 Anxiety disorder, unspecified; F17.290 Nicotine dependence, other tobacco product, uncomplicated
CPT/HCPCS: 80048; 93005; 99284; A4216

== ENCOUNTER 2024-11-18 08:00 | Outpatient (RCR) | payer MEDICARE, MEDICAID, SELFPAY ==
--- NOTE | 2024-11-18 09:00 | BH.SGPN.GN ---
Behaviors/Verbalizations/Mental Status: [] Eye contact is poor. Motor activity is restless. Appearance is casual. Speech is Appropriate. Mood is depressed and anxious. Affect is congruent. Thoughts are linear and logical. No evidence of psychosis. Reviewed daily check in sheet and no reports of suicidal ideations or intent Client Response/Progress/Benefit: [] Pt participated at times during the group discussions. Restless. Daily symptom tracker notes 4/5 for depression and 3/5 for anxiety. Also reports 1/5 for self-harm urges. Today is pt's first day in IOP stating I'm working through some things. Vague regarding reasons for entering IOP expect to reports significant anxiety and isolation. I'm glad to be here. Limited progress noted. Limited benefit from group, however peers were supportive and offered feedback as well as advice for her first day and week. Will continue in IOP to maintain safety, stabilize mood, prevent decompensation/re-admission to psych unit, and improve functioning. Narrative Note: []
--- NOTE | 2024-11-18 09:39 | BH.MDN_ITS ---
Multi-Disciplinary Note Note 30-min Individual: Time Started:: 08:30 Date: 11/18/24 Purpose of session/treatment goals addressed:: Purpose of session was to gather updated information on pt mental health and background since last admission, assess current symptoms, and began to develop goals for IOP. Eye Contact:: Good Motor Activity:: Restless Appearance:: Neat and Casual Speech:: Pressured Mood:: Euthymic and Anxious Affect:: Congruent Thoughts:: Linear, Logical and No evidence of hallucinations/delusions noted Staff Interventions:: motivational interviewing, rapport building, strengths perspective, treatment planning, completed risk assessment / safety planning (cssr-s update) and goal setting Client Response:: Pt discussed her current difficulties with managing her mental health sx in the past year. Noted that about a year ago she had a self- aborted suicide attempt via overdose but not take the medication because she did not want to do that to her 12 year old son. Reports she had been able to make several changes to improve her mental health for a period of time; however this was complicated by the end of a serious relationship approx.. 9 months ago. Pt reported that the relationship had been unhealthy and although she rationally knows this, she has struggled with thoughts that she is a ?bad person? and lack of closure. Noted that in the past few years she has struggled significantly with a desire to control and perfect various areas of her life. Described taking spiritual wellness to an extreme, fixating on getting physically healthy in the past, and created perfectionistic tendencies in her daily life through cleaning, ect. States that this has become problematic not only to her ability to function, but is also beginning to affect her relationships. Expressed desires to work on understanding and managing her Borderline Personality Disorder, specifically difficulties with trust, reassurance seeking, and emotion dysregulation. Noted that she is often in her own head and has tendency to personalize as a result. Shared ?in a lot of ways I?m doing better than I had been last time I was here, but I would really like to focus on addressing this need to be in control and desire to run when feeling unsafe?. Risks/Concerns:: Pt denies any suicidal ideations, plan, or intent since d/c from inpatient unit on 11/16/24. Contracts for safety. Protective factors reported. Future-oriented. Progress Toward Goals/Plan:: Limited progress as this was pt's first day in the program. Hopefully and excited for the additional support of the IOP program. Reports high levels of motivation to make progress in better understanding and managing her mental health sx. 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 Endorses hopelessness, guilt, mood instability, racing thoughts, some paranoia, daily panic attack and crying spells, as well as a recent self-interrupted suicide attempt resulting in inpatient hospitalization and return to IOP level of care. Time Stopped:: 09:00
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
--- NOTE | 2024-11-18 10:10 | BH.SGPN.GN ---
Behaviors/Verbalizations/Mental Status: [] Eye contact is fair. Motor activity is appropriate. Appearance is casual. Speech is Appropriate. Mood is anxious. Affect is congruent. Thoughts are linear and logical. No evidence of psychosis. Client Response/Progress/Benefit: [] Pt was an active participant during interactive group discussions. Along with peers contributed to interactive discussion on defining what a boundary is in mental health. Pt along with peers identified challenges to setting boundaries which included: people pleasing, fear of rejection, fear of loss, fear people won't respect the boundary. Pt stated a personal barrier to setting boundaries is fear of rejection and worry that if she isn't helping others people won't want to be around her. Pt along with peers identified the benefits to setting boundaries such as reduces assumptions, can reduce stress, improve communication/relationships, and can keep us safe. Attentive during psychoeducation on types of boundaries (rigid, porous, flexible). Pt benefited from increased awareness and insight on the importance/benefit to setting health boundaries. Will continue in IOP to increase consistent use of coping skills, improve confidence and prevent decompensation.
--- NOTE | 2024-11-18 10:17 | BH.COMM_ITS ---
Communication Note Communication with Client Communication Note: Met with patient to complete initial paperwork. Denies any significant changes since pre-admission screening. Completed suicide risk assessment with moderate risk given recent self-interrupted attempt via helium. Pt denies any SI, plan, or intent since inpatient hospitalization from 11/13/24- 11/15/24. Consulted with program psychiatrist with plan to admit to IOP with dx F31.9
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
--- NOTE | 2024-11-19 08:40 | PCM.BH.PSYEV ---
Psychiatric Evaluation Initial Evaluation Initial Evaluation: Sushma Vogt is a 34 year old female who presents today for new patient evaluation. Sleep: Interest: Guilt: Energy: Concentration: Appetite: Psychomotor: Suicide: Memory: Anxiety: Obsessions: Compulsions: Luisa: PTSD: Psychosis: denies history of auditory or visual hallucinations, denies disorganized thoughts, denies disorganized speech
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
--- NOTE | 2024-11-22 06:18 | PCM.BH.PSYEV ---
Psychiatric Evaluation Initial Evaluation Initial Evaluation: Initial Treatment Plan Patient Information Visit Information: ADMISSION DATE: 11/19/2024 EXPECTED LOS: 4-6 weeks Problems/Symptoms Problem #1:: Mood lability Symptom:: Depression, irritability, apathy, hopelessness, confusion, derealization, lack of motivation, apathy, guilt, decreased concentration, low energy, passive thoughts of Problem #2:: Anxiety Symptom:: Worry, rumination, panic attacks
--- NOTE | 2024-11-23 09:00 | BH.SGPN.GN ---
Behaviors/Verbalizations/Mental Status: []Pt alert and oriented, neatly dressed and groomed. Eye contact good. Motor activity appropriate. Speech within normal limits. Affect congruent, mood anxious. Thoughts linear, logical, no signs of hallucinations or delusions. Reviewed pt?s symptom tracker, no risk for suicidal ideation, plan, or intent 11/23/24. Client Response/Progress/Benefit: [] Pt was an active participant in group discussions. Attentive. Able to identify mental health wins including getting her medications adjusted and finding it helpful and having a good weekend with her son. ?Pt's stressor today is ?my anxiety is really bad right now? which pt feels is partially due to her depression lifting. Pt stated pt is feeling ?anxious this morning. Pt receptive to feedback from peers which pt reported was helpful. Progress noted. Benefited from group support, encouragement, and feedback. Will continue in IOP to reduce anxious thought patterns, increase distress tolerance, and improve self-compassion. ? Narrative Note: []
--- NOTE | 2024-11-23 10:10 | BH.SGPN.GN ---
Behaviors/Verbalizations/Mental Status: [] Eye contact is good. Motor activity is restless. Appearance is casual. Speech within normal limits. Mood is anxious. Affect is congruent. Thoughts are linear and logical. No evidence of psychosis. Client Response/Progress/Benefit: [] Client was an active participant in group discussion and experiential activity. Attentive during psychoeducation on resilience. Participated in interactive discussion with peers on the definition of resilience. Group identified factors that impact resiliency which include; current mood, stress level, health, pain levels, sleep, and environment. Group also worked together to identify the benefits of being resilient and how it is related to mental health. Group believes resilience can increase adaptability, keep one moving towards goals, improve self-care, improve relationships, and decrease stress. Able to relate experiential activity of group juggle to topics of resilience. Benefited from increased awareness of resilience and the factors that contribute to building resilience. Will continue in IOP to prevent decompensation/re-admission to psych unit, stabilize mood, increase healthy coping, and improve functioning. Narrative Note: []
--- NOTE | 2024-11-23 11:10 | BH.SGPN.GN ---
Behaviors/Verbalizations/Mental Status: [] Client alert and oriented, casually dressed and groomed. Eye contact good. Motor activity appropriate. Speech within normal limits. Affect congruent, mood euthymic. Thoughts linear, logical, no signs of hallucinations or delusions Client Response/Progress/Benefit: [] Client responded well to session AEB completing the resilience worksheet provided. Client actively participated in the discussion and worked cooperatively with group to identify strategies to enhance each of the components discussed. Client reports belief they already use resilience trait of ?self awareness? and make connections. Client discussed that they could work on accepting change is a part of living and avoiding seeing crises as insurmountable. Client seemed to benefit from discussing strategies for improving personal resilience and identifying resilience traits client already possesses. Will continue IOP tx to increase overall functioning and prevent decompensation. Narrative Note: []
--- NOTE | 2024-11-24 09:05 | BH.SGPN.GN ---
Behaviors/Verbalizations/Mental Status: [] Eye contact is good. Motor activity is appropriate. Appearance is casual. Speech is Appropriate. Mood is anxious and dysthymic. Affect is congruent. Thoughts are linear and logical. No evidence of psychosis. Reviewed daily check in sheet and no reports of suicidal ideations or intent. Client Response/Progress/Benefit: [] Pt was an active participant in group discussions. Attentive. Did well to identify 2 mental health wins including being able to spend time painting as self-care yesterday. Identified use of self-compassion and positive affirmations. Additional win noted as beginning to feel a little more like herself, noting I'm getting a little bit of my sparkle back. Current stressor noted as struggling with feeling stressed and more anxious today. Benefited from group support, encouragement, and feedback. Will continue in IOP to prevent decompensation, promote mood stability, and increase consistent use of healthy coping. Narrative Note: []
--- NOTE | 2024-11-24 10:10 | BH.SGPN.GN ---
Behaviors/Verbalizations/Mental Status: [] Pt alert and oriented, casually dressed and groomed. Eye contact good. Motor activity appropriate. Speech within normal limits. Affect congruent, mood depressed. Thoughts linear, logical, no signs of hallucinations or delusions. Client Response/Progress/Benefit: []Pt an active participant in group discussions on defining conflict (internal/external) and possible benefits to conflict. Attentive during psychoeducation on conflict styles (avoidant, accommodating, competing, cooperative) and engaged during group discussion in which peers identified the benefits and consequences to each conflict style. Pt identified that she tends to be avoidant or accommodating with others but competing with herself. Benefited from increased awareness of the impact of conflict styles in mental health. Will continue in IOP tx to prevent decompensation, stabilize mood, and improve functioning. Narrative Note: []
--- NOTE | 2024-11-24 11:10 | BH.SGPN.GN ---
Behaviors/Verbalizations/Mental Status: []Client alert and oriented, casually dressed and groomed. Eye contact good. Motor activity appropriate. Speech within normal limits. Affect congruent, mood euthymic. Thoughts linear, logical, no signs of hallucinations or delusions. Client Response/Progress/Benefit: [] Pt engaged in session AEB contributing to discussion and engaging in small group. Attentive during discussion on strategies for more effectively managing conflict in personal life. Pt participated in small group for activity and did well practicing how to manage conflict scenarios. Pt given handout on fair fighting rules and how to identify common conflict barriers. Pt indicated what needs improvement in conflict for them which was to ?before I begin ask myself why I?m upset? when addressing conflict. Appeared to benefit from gaining strategies to help Pt better manage conflict. Will continue IOP tx promote use of healthy coping skills, increase ability to manage negative thinking patterns, and improve daily functioning. ?? Narrative Note: []
--- NOTE | 2024-11-25 02:00 | BH.SGPN.GN ---
Behaviors/Verbalizations/Mental Status: [] Eye contact is good. Motor activity is appropriate. Appearance is casual. Speech is Appropriate. Mood is anxious. Affect is congruent. Thoughts are linear and logical. No evidence of psychosis. Reviewed daily check in sheet and no reports of suicidal ideations or intent. Client Response/Progress/Benefit: [] Pt was an active participant in group discussions. Attentive. Did well to identify 2 mental health wins including being able to practice sitting with the uncomfortable and reaching out to supports rather than isolating. Identified use of opposite action. Additional win noted as completing her painting and someone offering to buy it. Current stressor noted as struggling with feeling guilty for being short when taking her son to school today. Benefited from group support, encouragement, and feedback. Will continue in IOP to prevent decompensation, promote mood stability, and increase consistent use of healthy coping. Narrative Note: []
--- NOTE | 2024-11-25 10:10 | BH.SGPN.GN ---
Behaviors/Verbalizations/Mental Status: [] Pt alert and oriented, casually dressed and groomed. Eye contact good. Motor activity appropriate. Speech within normal limits. Mood: anxious. Affect: congruent. Thoughts linear, logical, no signs of hallucinations or delusions. Client Response/Progress/Benefit: [] Pt was an active participate during group discussions. Attentive during psychoeducation on self-sabotage and its impact on mental health. Attentive as peers worked together to define self-sabotage. Worked with peers to identify different types of self-sabotage such as; procrastination, self-medicating, unrealistic expectations, people-pleasing, and poor boundaries. Worked with peers to identify reasons for self-sabotage behaviors (feels comfortable, can distract,perceived control, fear of success, and a type of self-protection). Seemed to benefit from gaining awareness about the self-sabotage. Pt to continue IOP tx to prevent decompensation, increase healthy coping, and improve functioning. Narrative Note: []
--- NOTE | 2024-11-25 21:47 | BH.MDN ---
Multi-Disciplinary Note Note 45-min Individual: Time Started:: 10:42 Date: 11/25/24 Purpose of session/treatment goals addressed:: To address negative thoughts and guilt associated with past behaviors impacting pt depression as well as reinforcing negative core beliefs Eye Contact:: Good Motor Activity:: Appropriate Appearance:: Casual Speech:: Appropriate Mood:: Anxious and Dysthymic Affect:: Congruent Thoughts:: Linear, Logical and No evidence of hallucinations/delusions noted Staff Interventions:: thought challenging, motivational interviewing, CBT techniques and strengths perspective Client Response:: Pt receptive of session, engaged throughout. Reports that she is overall adjusting well to IOP tx and continues to find the shared and supportive environment to be helpful. Noted that having other group members who have previously been in IOP tx is helping to challenge her own shame and negative self-talk surrounding returning to tx. Went on to share some difficulties interacting with the therapist her ex had while in the program several months ago; however, pt is doing well to work on challenging these thoughts and remind herself that ?every story has two sides? and ?no one is judging me?. Reminded herself of prior positive experiences she has had in tx, indicating evidence that she is welcome and unjudged. Went on to note that although she and her ex broke up several months ago, she continues to grieve the relationship and struggle with the lack of closure, as well as conflicted terms it ended on. Reports doing well with accepting the loss but not that the relationship did not end on good terms, meaning the potential of someone not liking or approving of her. Pt shared this gets at underlying fears of rejection and difficulties in not being able to control various aspects of her life. Insight that working on sitting with discomfort and accepting that the present can be okay as it is will aid in reducing reassurance seeking. Plans to practicing sitting with discomfort and not apologize when tempted to act on inappropriate guilt over the next week. Risks/Concerns:: Denies any SI, plan, or intent as of this date 11/25/24 Progress Toward Goals/Plan:: Some, limited progress noted. Still early in treatment however pt reports doing well with beginning to more consistently implement skills, recognize and challenge negative thought patterns, as well as mindfully implement healthy grounding skills. Pt concerns regarding others opinions of her and fear of disappointing or not meeting others expectations is negatively impacting her self-talk and reinforcing mood instability. Endorses racing thoughts. Recommended continued IOP tx to improve self-confidence, thought challenging, and prevent decompensation. Time Stopped:: 11:33
--- NOTE | 2024-11-29 09:05 | BH.SGPN.GN ---
Behaviors/Verbalizations/Mental Status: [] Eye contact is good. Motor activity is appropriate. Appearance is casual. Speech is Appropriate. Mood is depressed/anxious. Affect is congruent. Thoughts are linear and logical. No evidence of psychosis. Reviewed daily check in sheet and no reports of suicidal ideations or intent. Client Response/Progress/Benefit: [] Pt was an active participant in group discussions. Attentive. Daily symptom tracker notes 01/08 for depression, 5 for anxiety, and 10/10 for self-harm urges. ? was a hard day?. Elaborated on mental health struggles over the weekend as well. ? I was triggered again on Friday?. These event led to negative thoughts and emotional dysregulation. Proud of herself for trying new coping skills to help process her thoughts. ? I started to journal?. Elaborated on the benefits of journaling to get her thoughts out of her head. Continues to feel ?depressed and anxious? today. Limited progress noted. Benefited from group support, encouragement, and feedback. Will continue in [facility] to maintain safety, prevent decompensation/re-admission, and increase healthy coping. Narrative Note: []
--- NOTE | 2024-11-29 10:10 | BH.SGPN.GN ---
Behaviors/Verbalizations/Mental Status: []Patient was alert and oriented, casually dressed and groomed. Eye contact good. motor activity appropriate. speech within normal limits. Affect congruent, mood anxious. Thoughts linear, logical, no signs of hallucinations or delusion. Client Response/Progress/Benefit: [] Pt participated in the group discussions AEB providing input, nodding and taking notes. Attentive during psychoeducation Goal Setting. Participated during the discussion on common barriers. Pt stated personal barriers to accomplishing goals include not feeling like doing the goal and lack of motivation. Group also identified benefits of goals as sense of purpose, improved self-confidence, more motivation for other goals, sense of accomplishment, and improved mental health. Pt identified personal benefits to goal setting. Benefited from increased awareness of mental health benefits of goals as well as psychoeducation on SMART goal criteria. Will continue in IOP to increase distress tolerance skills, reduce negative thinking patterns, and improve mood stability. ? Narrative Note: []
--- NOTE | 2024-11-29 11:10 | BH.SGPN.GN ---
Behaviors/Verbalizations/Mental Status: [] Pt alert and oriented. Appearance is casual. Eye contact good. Motor activity restless. Speech within normal limits. Affect is anxious. Mood is congruent. Thoughts linear, logical, no signs of hallucinations or delusions. Client Response/Progress/Benefit: [] Pt was engaged during discussion and experiential activity. Completed the worksheet challenging them to develop a personal SMART goal. Pt chose a SMART goal to mediate for at least 5 minutes every day this week. Believes this goal will benefit them being through reducing anxiety and depression. Identified obstacles such as motivation and not feeling like it .Benefited from this group by developing a short-term SMART goal related to mental health. Will continue IOP to prevent decompensation/re-admission, maintain safety, stabilize mood, and improve functioning Narrative Note: []
--- NOTE | 2024-12-01 09:05 | BH.SGPN.GN ---
Behaviors/Verbalizations/Mental Status: [] Eye contact is good. Motor activity is appropriate. Appearance is casual. Speech is Appropriate. Mood is euthymic. Affect is full. Thoughts are linear and logical. No evidence of psychosis. Reviewed daily check in sheet and no reports of suicidal ideations or intent. Client Response/Progress/Benefit: [] Pt was an active participant in group discussions. Attentive. Daily symptom tracker notes 5 for depression and 2/5 for anxiety. Yesterday I was in a good mood which is a big deal for me. Went on to state that she is feeling like myself again. Haven't felt this way since July. Shared being mindful and trying to enjoy this stability and not focusing on when it will stop. Utilizing skills and has been consistent with IOP level of care. Progress noted. Benefited from group support, encouragement, and feedback. Will continue in IOP to prevent decompensation/re-admission to psych, maintain safety, and increase healthy coping. Narrative Note: []
--- NOTE | 2024-12-01 10:15 | BH.SGPN.GN ---
Behaviors/Verbalizations/Mental Status: []Client alert and oriented, casually dressed and groomed. Eye contact good. Motor activity appropriate. Speech within normal limits. Affect congruent, mood euthymic, Thoughts linear, logical, no signs of hallucinations or delusions Client Response/Progress/Benefit: []pt responded well to session, contributing to discussion and engaged during the activity. Group identified the benefits of change which included: personal growth, increased confidence, improving mental health, progressing, and becoming resilient. Worked with the group to identify barriers to change and pt identified personal barriers as I have the sads and lack of motivation. pt participated along with group in activity where they discussed the emotions related to change. Benefited from increased awareness and understanding of emotions, benefits, and barriers related to change. Will continue IOP tx to promote mood stability, reduce negative thinking patterns, and increase self-confidence. Narrative Note: []
--- NOTE | 2024-12-01 11:15 | BH.SGPN.GN ---
Behaviors/Verbalizations/Mental Status: []Client alert and oriented, neatly dressed and groomed. Eye contact good. Motor activity appropriate. Speech within normal limits. Affect congruent, mood depressed and anxious. Thoughts linear, logical, no signs of hallucinations or delusions. Client Response/Progress/Benefit: [] Pt responded well to session, attentive throughout. Did well to actively listen and contributed when prompted as group worked to review change process. Pt worked with group to relate the strategies used to overcome barriers in the various stages of change and common emotions throughout. Pt identified a change they would like to make as Not apologizing for things I don't need to.? Pt identified currently being in the action stage for this change. Pt said starting small is one thing she can do to help pt get to the next stage. Appeared to benefit from identifying a change they want and how to progress. Pt will continue IOP tx to prevent decompensation, combat distorted thought patterns, and improve self-compassion. Narrative Note: []
--- NOTE | 2024-12-02 09:05 | BH.SGPN.GN ---
Behaviors/Verbalizations/Mental Status: []? Eye contact is good. Motor activity is appropriate. Appearance is casual. Speech is Appropriate. Mood is euthymic. Affect is congruent. Thoughts are linear and logical. No evidence of psychosis. Reviewed daily check in sheet and no reports of suicidal ideations or intent? Client Response/Progress/Benefit: []? Pt engaged throughout, providing supportive feedback. 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 Shared use of self-compassion. Stressor noted as feeling more emotional lately which is difficult for her to accept of herself. Progress noted. Benefited from group support and encouragement. Recommended continued IOP tx to maintain mood stability, increase self-compassion, and prevent decompensation.? Narrative Note: []
--- NOTE | 2024-12-02 11:10 | BH.SGPN.GN ---
Behaviors/Verbalizations/Mental Status: [] Pt alert and oriented, casually dressed and groomed. Eye contact fair. Motor activity appropriate. Speech within normal limits. Affect congruent, mood euthymic. Thoughts linear, logical, no signs of hallucinations or delusions. Client Response/Progress/Benefit: [] Pt responded well to session, engaged in the experiential activity and attentive throughout group processing. Interactive discussion with peers on what FOF has kept them from which included; trying new things, therapy, and medications as all as starting or ending relationships/jobs. Pt completed fear of failure worksheet and was able to identify thoughts and behaviors that reinforce personal fear of failure. Pt participated in small group discussion regarding strategies to overcome fear of failure. Identified struggling most with letting fear make her decisions. Strategies to overcome FOF identified as allowing myself to suck and getting comfortable with being imperfect. ?Appeared to benefit from increased knowledge of strategies to combat fear of failure and gaining self-awareness. Pt will continue IOP tx to increase consistent use of healthy coping skills, challenge distorted thoughts, and prevent decompensation.
--- NOTE | 2024-12-02 22:12 | BH.MDN_ITS ---
Multi-Disciplinary Note Note 60-min Individual: Time Started:: 08:15 Date: 12/02/24 Purpose of session/treatment goals addressed:: To address recent stressors impacting pt thoughts and reinforcing depression and anxiety sx. Eye Contact:: Good Motor Activity:: Appropriate Appearance:: Casual Speech:: Appropriate Mood:: Anxious and Depressed Affect:: Congruent Thoughts:: Linear, Logical and No evidence of hallucinations/delusions noted Staff Interventions:: thought challenging, CBT techniques, mindfulness skills, strengths perspective and goal setting Client Response:: Pt actively engaged, openly discussed current sx and stressors throughout. Shared that she has found some improvement in mood stability since completely weening off of the Trileptal last week. Notes that she had been struggling with difficulties thinking and managing her emotions while on the medication and since weening off feels more present. Went on to discuss recently noticing and giving herself credit for skills she has been applying and not noticing. Shared that she did well to manage two unexpected stressors over the weekend including being confronted by a past friend as well as running into her ex. Shared that she thought she would be more upset by this and was pleasantly surprised that she did not have a visceral reaction by the encounter. Noted that she did struggle with replaying their last conversation afterward and beating herself up for not being able to take back the harsh things she?s said. Expressed frustration in herself for lack of self-compassion. Connected with the idea that she continues to view herself as a ?problem that needs to be fixed? rather than learning to accept herself. Receptive of beginning to practicing sitting with herself without trying to over process or ?fix? anything, as well as remind herself, ?I am and that is good?. Risks/Concerns:: Denies SI, plan, or intent as of this date 12/02/24 Progress Toward Goals/Plan:: Progress noted. Pt reports improve skill application and increasing mood stability. Stated doing better to be more intentional with self-care and is more actively caring for her thoughts and her daily needs through grounding and mindfulness. Pt is reporting increased self- confidence and reduction in racing thoughts. Recommended continued IOP tx to improve mood stability, increase self-compassion, and prevent decompensation. Time Stopped:: 09:08
== END 2024-12-03 23:59 ==
LOC: BHIOP 08:00
PROVIDERS: Referring Provider Psychiatry & Neurology Psychiatry; Visit Provider Psychiatry & Neurology Psychiatry
DX: F60.3 Borderline personality disorder (principal); F31.9 Bipolar disorder, unspecified; F41.1 Generalized anxiety disorder; F17.210 Nicotine dependence, cigarettes, uncomplicated; F10.90 Alcohol use, unspecified, uncomplicated; Z79.899 Other long term (current) drug therapy
CPT/HCPCS: S9480; 90832; 90834; 90837; 90853

== ENCOUNTER 2024-12-06 07:36 | Outpatient (RCR) | payer MEDICARE, MEDICAID, SELFPAY ==
--- NOTE | 2024-12-02 10:15 | BH.SGPN.GN ---
Behaviors/Verbalizations/Mental Status: []Pt alert and oriented, neatly dressed and groomed. Eye contact good. Motor activity appropriate. Speech within normal limits. Affect congruent, mood euthymic. Thoughts linear, logical, no signs of hallucinations or delusions. Client Response/Progress/Benefit: [] Pt responded well to session, engaged in the experiential activity and attentive throughout group processing. Pt reported fear of failure has kept Pt from being vulnerable and trying things in the past. Pt completed fear of failure worksheet and was able to identify thoughts and behaviors that reinforce personal fear of failure including negative self-talk, overthinking, and people pleasing. Pt participated in small group discussion regarding strategies to overcome fear of failure. Identified wanting to work on telling herself thinking in the [place]. ?Appeared to benefit from increased knowledge of strategies to combat fear of failure and gaining self-awareness. Pt will continue IOP tx to prevent decompensation, combat distortions, and increase self-compassion. Narrative Note: []
--- NOTE | 2024-12-06 09:00 | BH.SGPN.GN ---
Behaviors/Verbalizations/Mental Status: [] Eye contact is good. Motor activity is appropriate. Appearance is casual. Speech is Appropriate. Mood is euthymic. Affect is full. Thoughts are linear and logical. No evidence of psychosis. Reviewed daily check in sheet and no reports of suicidal ideations or intent. Client Response/Progress/Benefit: [] Pt was an active participant in group discussions. Attentive. Daily symptom tracker notes 5 for depression and 5 for anxiety. Reports she had a ?chill? weekend. Visited her family. She reports ruminations regarding her future, life uncertainty, and health of certain family members. Overall she believes that she is less erratic, restless, and overwhelmed with stressors, emotions, and thoughts. Able to report hope and identify her progress. Progress noted. Benefited from group support, encouragement, and feedback. Will continue in IOP to prevent decompensation/re-admission to psych unit, maintain safety, and increase healthy coping. Narrative Note: []
--- NOTE | 2024-12-06 10:10 | BH.SGPN.GN ---
Behaviors/Verbalizations/Mental Status: [] Eye contact is fair. Motor activity is appropriate. Appearance is casual. Speech is Appropriate. Mood is anxious. Affect is constricted. Thoughts are linear and logical. No evidence of psychosis. Client Response/Progress/Benefit: [] Pt was an active participant in group discussions. Attentive during psychoeducation on the 4 communication styles (Passive, Passive-Aggressive, Aggressive, and Assertive) and the obstacles to effective communication. Contributed during interactive discussion on the benefits of communicating effectively. Worked well with peers to identify the benefits and disadvantages to the different communication styles. Pt believes that she is primarily passive and aggressive and gave examples of recent events. Benefited from increased understanding of communication styles and how these can impact effective communication. Will continue in IOP to promote healthy coping, challenge distortions, and prevent decompensation.
--- NOTE | 2024-12-06 11:15 | BH.SGPN.GN ---
Behaviors/Verbalizations/Mental Status: []Pt alert and oriented, casually dressed and groomed. Eye contact good. Motor activity appropriate. Speech within normal limits. Affect congruent, mood content and anxious. Thoughts linear, logical, no signs of hallucinations or delusions. Client Response/Progress/Benefit: [] Pt responded well to session AEB Pt listening attentively to others and providing input during group discussion on the pay offs and costs of the different communication styles. Pt able to connect how current communication style impacts mental health. Connected with peers? comments about importance of using assertive communication. Pt seemed to benefit from increasing awareness of healthy strategies to improve communication and worked within small group to identify assertive communication approaches to example scenarios. Identified wanting to work on reducing use of over apologizing when communicating with others. Will continue IOP tx to prevent decompensation, improve mood stability, and improve self-confidence. ? Narrative Note: []
--- NOTE | 2024-12-08 09:02 | BH.SGPN.GN ---
Behaviors/Verbalizations/Mental Status: [] Client alert and oriented, casual appearance. Eye contact good. Motor activity appropriate. Speech within normal limits. Affect congruent, mood euthymic. Thoughts linear, logical, no signs of hallucinations or delusions. Reviewed client's symptom tracker, no risk for suicidal ideation, plan, or intent. Client Response/Progress/Benefit: [] Client responded well to session AEB listening to others and sharing thoughts/feelings. 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 Client noted additional mental positive as going for a run and allowing herself to embrace the chill. Client noted current stressor as feeling dizzy because he is a lot going on with her volunteering. Appeared to benefit from support from peers. Will continue IOP tx to increase consistent utilization of healthy coping skills, challenge and distorted thought patterns, and prevent decompensation. Narrative Note: []
--- NOTE | 2024-12-08 10:10 | BH.SGPN.GN ---
Behaviors/Verbalizations/Mental Status: [] Pt alert and oriented, casually dressed and groomed. Eye contact good. Motor activity appropriate. Speech within normal limits. Affect full, mood dysthymic and anxious. Thoughts linear, logical, no signs of hallucinations or delusions. Client Response/Progress/Benefit: [] Pt was an engaged participant AEB listening attentively to others, taking notes, and providing feedback in group discussions. Attentive during psychoeducation AEB by note taking. Pt worked along with peers in groups to define inappropriate guilt and appropriate guilt. Group worked together to provide examples of both inappropriate and appropriate guilt. Group identified a canceling plans and snapping at kids as appropriate guilt examples. Group identified setting a being in a down mood and taking responsibility for other?s emotions as having inappropriate guilt. Pt able to connect impact inappropriate guilt can have on MH and overall functioning. Identified struggling at times with self-forgiveness and fear of upsetting others resulting in inappropriate guilt. Benefited from increased awareness of guilt and the differences between appropriate and inappropriate guilt. Pt to continue IOP tx to prevent decompensation, gain healthy coping skills, and increase emotion regulation skills. Narrative Note: []
--- NOTE | 2024-12-08 11:08 | BH.MTP_ITS ---
Treatment Plan Review Demographics Date of Admission:: 11/18/24 Date of Treatment Plan Review:: 12/08/24 Admitting Diagnoses:: 1. Bipolar disorder, NOS (F31.9) 2. Borderline personality disorder 3. Generalized anxiety disorder Current Diagnoses:: 1. Bipolar disorder, NOS (F31.9) 2. Borderline personality disorder 3. Generalized anxiety disorder Patient Status Patient's Response to Treatment:: Pt has been consistent and engaged in IOP. Appears motivated to make changes. Completed DSM5 cross-cutting scales which show an overall reduction in symptoms since admission. Pt self-reports reduction in sx of depression, irritability, and anxiety. Reports increased confidence and working to improve self-acceptance. Reduction in rumination as well. Status of Current Problems and Symptoms: Pt continues to verbalize some irritability, anxiety, and erratic moods which impact her rational thinking, increases self-criticism, and reduced healthy decision-making. Continues to report periods of emotional dysregulation and reassurance seeking. Ruminating on past choices and inappropriate guilt associated. Progress Problem #1: Problem Name:: Mood Lability Status of Goals:: Obj 1- Per outcomes pt has shown improved mood stability with decrease in depression, anger, and dissociation domains. Pt reports overall improved ability to accept and manage emotions, though does struggle at times with overanalyzing and ruminating on her emotions. Beginning to work more on compassion and acceptance. Team Recommendations:: Continue to encourage reducing reassurance seeking and desire to ?fix? herself, rather practice sitting with discomfort and self- acceptance. Continue in IOP to prevent decompensation, stabilize mood, and increase healthy coping. Problem #2: Problem Name:: Anxiety Status of Goals:: Obj1- According to measurement outcomes pt has shown a reduction on the anxiety domain. She is able to list and more consistently apply several calming skills to help manage anxiety. Does struggle with challenging negative core beliefs which reinforce anxiety. Team Recommendations:: Encourage pt to practice skills when not in crisis. Continue in IOP to gain more insight into anxiety and calming skills. Improve ability to identify and challenge mistaken beliefs
--- NOTE | 2024-12-08 11:10 | BH.SGPN.GN ---
Behaviors/Verbalizations/Mental Status: []Pt alert and oriented, casually dressed and groomed. Eye contact good. Motor activity appropriate. Speech within normal limits. Affect congruent, mood anxious and euthymic. Thoughts linear, logical, no signs of hallucinations or delusions. Client Response/Progress/Benefit: [] Pt was an engaged participant AEB listening attentively to others and providing input throughout group. Pt worked within their small group to identify strategies to manage inappropriate guilt. Identified a personal example of inappropriate guilt as ?feeling guilt for being assertive or setting boundaries.? Pt wants to work on combatting inappropriate guilt by ?I?m working on not panic apologizing and not entertaining thought about the past.? Pt seemed to benefit from learning about strategies to manage appropriate and inappropriate guilt. Pt to continue IOP tx to promote mood stability, reduce negative thinking patterns, and increase self-confidence. ?? Narrative Note: []
--- NOTE | 2024-12-08 12:17 | PCM.BH.PN_ITS ---
Progress Note Progress Note: History of Present Illness/Interim History: The patient is a 34-year-old female with a history of bipolar disorder, anxiety, borderline personality disorder, alcohol use disorder (sober since 2022) and nicotine dependence who is seen in follow-up at the [facility] behavioral [facility] IOP. Last saw the patient 3 weeks ago and at that time she was having side effects on Trileptal and was given instructions to taper it. The patient discontinued the Trileptal after weaning 1 week ago and feels much better off of it. She continues to take the Caplyta and is tolerating it well. She feels that her anxiety is less and her depression is less now. Her mood is better and her concentration is better. 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 She feels she is learning valuable skills in the IOP. She denies plan for suicide, passive thoughts of , suicidal ideation, homicidal ideation, hallucinations or delusions. Current Psychiatric Medications: [] Caplyta 10.5 mg p.o. daily; Linzess added by primary care doctor for constipation. Mental Status Examination: [] The patient is a 34-year-old female with orange dyed hair which is short who appears otherwise normal for stated age and is casually dressed and groomed with good hygiene. She is ambulatory with a normal gait and has no psychomotor agitation or retardation. Eye contact is good and speech is normal rate and rhythm and fluent with no pressure. Mood is euthymic. Affect is full and normal. Thought process is goal-directed and organized. Thought content: Patient is hopeful for the future. There is no evidence of passive thoughts of , suicidal ideation, homicidal ideation, hallucinations, delusions or symptoms of ange. Reality testing is intact. Judgment is intact. Insight is fair. Impulsivity is moderate. Diagnoses: [] 1. Borderline personality disorder 2. Bipolar, NOS (F31.9) 3. Generalized anxiety disorder 4. Alcohol use disorder (sober since 2022) 5. Nicotine dependence 6. Work and financial issues Plan: [] The patient will continue the IOP as the structure, support, education and group therapy will hopefully prevent worsening of the patient's symptoms. She felt safe during the interview and she agrees that if it anytime she does not feel safe she will let us know or go to the emergency room. No medication changes were made today. She will continue to follow-up with her outpatient pr oviders and I will see the patient in follow-up while she is in the IOP.
--- NOTE | 2024-12-09 09:05 | BH.SGPN.GN ---
Behaviors/Verbalizations/Mental Status: [] Eye contact is good. Motor activity is appropriate. Appearance is casual. Speech is Appropriate. Mood is euthymic. Affect is full. Thoughts are linear and logical. No evidence of psychosis. Reviewed daily check in sheet and no reports of suicidal ideations or intent Client Response/Progress/Benefit: [] Pt was an active participant in group discussion. Attentive. Daily symptom tracker notes 10/10 for depression, anxiety, and irritability. Shared that she is grateful for the program and believes that she is gaining insight and her mood is stabilizing. Increased confidence, energy, engagement, and hope. She identified several stressful events in the past day which she did not allow to cause significant distress. ? It will all be fine?. Progress noted. Benefited from group support, encouragement, and feedback. Will continue in IOP to maintain safety, prevent decompensation/re-admission to psych unit, and increase healthy coping. Narrative Note: []
--- NOTE | 2024-12-09 10:10 | BH.SGPN.GN ---
Behaviors/Verbalizations/Mental Status: [] Pt alert and oriented, casually dressed and groomed. Eye contact good. Motor activity appropriate. Speech within normal limits. Mood is euthymic and anxious. Affect is congruent. Thoughts linear, logical, no signs of hallucinations or delusions. Client Response/Progress/Benefit: [] Pt was an active?participant in group discussions and experiential activity. Worked with peers to identify benefits of healthy relationships which included; support, shared experiences, laughter, understanding, and the ability to challenge us. Group identified factors that lead to unhealthy relationships which included; fear, loneliness, low self-esteem, need to be liked, and societal expectations. Benefited from increased insight and awareness of benefits of healthy relationships and factors that contribute to unhealthy relationships. Will continue IOP to prevent decompensation/re-admission to psych unit, stablize mood, and increase healthy coping skills. Narrative Note: []
--- NOTE | 2024-12-09 11:05 | BH.MDN_ITS ---
Multi-Disciplinary Note Note 45-min Individual: Time Started:: 08:22 Date: 12/09/24 Purpose of session/treatment goals addressed:: Purpose of session was to identify and challenge negative core beliefs reinforcing negative self-talk and unhelpful coping behaviors. Eye Contact:: Good Motor Activity:: Appropriate Appearance:: Neat and Casual Speech:: Appropriate Mood:: Euthymic Affect:: Congruent Thoughts:: Linear, Logical and No evidence of hallucinations/delusions noted Staff Interventions:: thought challenging, motivational interviewing, psychoeducation on: (appropriate vs. inappropriate guilt), CBT techniques and strengths perspective Client Response:: Pt responded well to session, open to meeting with therapist and engaged throughout. Pt reports overall things are going well and she is seeing improvement in mood stability and ability manage daily stressors since beginning IOP tx. Did indicate however struggling with feeling ?disconnected from reality? this morning. 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 Reports feeling excited but somewhat overwhelmed by this and has been trying to use positive self-talk, ask for help, and take breaks as she organizes everything she needs for the event. Pt has been working to utilize more self-compassionate approaches to her self-reflection and self-talk related to pt?s mental health and daily functioning. Reports reminding herself that it is normal and acceptable to struggle with balance at times and was able to set a boundary regarding the amount of volunteering she does at [employer] while attending IOP tx. Pt shared that in the past she has struggled to set boundaries or say no to helping with something. Insight that she often experiences inappropriate guilt when establishing boundaries, resulting in over apologizing and reassurance seeking. Upon further reflection, pt made connection that her guilt stems from a fear of rejection, not being good enough, or disappo inting herself or others. Able to recognize stems from negative core beliefs ?My worth and security are dependent on being loved or approved of by others? and It?s not okay to make mistakes.?. Shared that these believes result in reassurance seeking, obsessing over what others think of her, and continually trying to ?fix? herself rather than accept herself. Able to identify that these beliefs stem from childhood moravian trauma in which she had been conditioned to believe she was not enough and needed to constantly repent for being herself. Reflected on the impact this has had on pt?s self-confidence and independence. Reflected on importance of identifying urges to act on inappropriate guilt in the moment and practice use of distress tolerance skills to prevent from doing so. Risks/Concerns:: Pt denies any suicidal ideations, plan, or intent. Pt denies any thoughts of . Progress Toward Goals/Plan:: Progress noted AEB pt self-report of improved mood stability and distress tolerance, as well as overall reduction in DSM-5 scores at time of review. Pt scores indicate an overall 22% reduction in sy mptomology. Pt is actively engaged in treatment and working on improving her ability to love and accept herself without trying to fix herself. Improved self-compassion, working to reduce reassurance seeking behaviors, and indicates ongoing work on coping with her most recent break-up. Pt recommended continued IOP tx to maintain mood stability, continue to promote distress tolerance skill building, as well as prevent decompensation. Time Stopped:: 09:05
--- NOTE | 2024-12-09 11:05 | BH.SGPN.GN ---
Behaviors/Verbalizations/Mental Status: [] Pt alert and oriented, casually dressed and groomed. Eye contact good. Motor activity appropriate. Speech within normal limits. Affect full, mood euthymic, Thoughts linear, logical, no signs of hallucinations or delusions. Client Response/Progress/Benefit: [] Pt responded well to session, engaged and taking notes throughout. Worked with group to connect components of the experiential activity with characteristics of healthy and unhealthy relationships. Attentive during psychoeducation about characteristics of healthy, unhealthy, and abusive relationships. Pt reported she is much better at being respectful within relationships, but pt reported she can work on ?sitting with discomfort and letting my kid do things his way sometimes.? Appeared to benefit from identifying current healthy relationship attributes and an area Pt wants to work on to build healthier relationships. Pt to continue IOP to promote gains, continue use of healthy coping, and prevent decompensation. Narrative Note: []
--- NOTE | 2024-12-14 09:00 | BH.SGPN.GN ---
Behaviors/Verbalizations/Mental Status: [] Eye contact is good. Motor activity is appropriate. Appearance is casual. Speech is Appropriate. Mood is euthymic. Affect is full. Thoughts are linear and logical. No evidence of psychosis. Reviewed daily check in sheet and no reports of suicidal ideations or intent. Client Response/Progress/Benefit: [] Pt was an active participant in group discussions. Attentive. Daily symptom tracker notes 10/10 for depression and 10/10 for anxiety. Did well to identify 2 mental health wins including continuing to exercise which has been aiding in consistent mood stability, as well as working through anxiety over the weekend. 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 Explained that her parents had surprised her by attending as well which had been a positive but had thrown her off. Able to identify skills such as breathing and positive self-talk to work through it. Noted increased anxiety for the past week which has been a stressor but something she is trying not to overthink. Progress noted. Benefited from group support, encouragement, and feedback. Will continue in IOP to prevent decompensation/re-admission to psych, promote mood stability, and increase healthy coping. Narrative Note: []
--- NOTE | 2024-12-14 10:15 | BH.SGPN.GN ---
Behaviors/Verbalizations/Mental Status: [] Client alert and oriented, casually dressed and groomed. Eye contact good. Motor activity appropriate. Speech within normal limits. Affect congruent, mood anxious and depressed. Thoughts linear, logical, no signs of hallucinations or delusions. Client Response/Progress/Benefit: [] Pt was an attentive and active participant, AEB taking notes and providing input in group discussion. Attentive during psychoeducation. Pt engaged during interactive discussion in which the group defined self-care and discussed its benefits. Group discussed barriers and benefits to self-care. Identified benefits as being more productive, feeling more grounded, feeling happier, decreased anxiety, better quality of life, and increased resilience. Pt participated in small groups where they worked to identify and challenged common self-care ?myths?. Benefited from increased awareness of self-care, its benefits, and the consequences of not utilizing self-care strategies. Will continue IOP tx to maintain safety, prevent decompensation/re-admission to psych unit, and to improve functioning. Narrative Note: []
--- NOTE | 2024-12-14 11:15 | BH.SGPN.GN ---
Behaviors/Verbalizations/Mental Status: []Client alert and oriented, neatly dressed and groomed. Eye contact good. Motor activity appropriate. Speech within normal limits. Affect congruent, mood anxious and euthymic. Thoughts linear, logical, no signs of hallucinations or delusions. Client Response/Progress/Benefit: [] Pt taking notes during discussion reviewing different areas of self-care and completing self-assessment of current self-care, as well as providing input throughout discussion. Did well to complete self-care self-assessment worksheet. Pt identified how pt is doing in each category and what self-care activities pt wants to start using. Pt selected psychological self-care to begin practicing more consistently. Pt plans to do this by ?less googling so I don?t get hyper-focused.? Appeared to benefit from completing the self-care evaluation and gaining insights into current self-care practices, as well as identifying areas in which pt would like to improve upon. Pt will continue IOP tx to promote mood stability, increase distress tolerance, and improve daily functioning. Narrative Note: []
--- NOTE | 2024-12-14 14:21 | BH.MDN_ITS ---
Multi-Disciplinary Note Note 60-min Individual: Time Started:: 12:13 Date: 12/14/24 Purpose of session/treatment goals addressed:: To process pt plans to start dating and discussed ways to maintain emotional safety in doing so. Eye Contact:: Good Motor Activity:: Appropriate Appearance:: Casual Speech:: Appropriate Mood:: Euthymic Affect:: Congruent Thoughts:: Linear, Logical and No evidence of hallucinations/delusions noted Staff Interventions:: motivational interviewing, CBT techniques, strengths perspective and other (cost benefit analysis) Client Response:: Pt receptive of session, actively engaged throughout. Reports overall doing well and is able to more easily see her progress today. Discussed that although she does well with being alone, she is trying to be more intentional about making plans with people. Described balancing time for self- care and socialization. Shared making plans to go hiking with an old friend this afternoon and is feeling excited about this. Went on to discuss trying to decide whether she feels ready to start dating again. Reported conflicting opinions on this but is not sure that she will ever feel completely ready to move on until she does it. Reflected on evidence she has supporting her decision to try dating again. Expressed needing to remind herself to be slow and intentional in doing so as she has a tendency to jump into intense relationships quickly. Identified plans to keep conversations surface level and refrain from physical touch in the beginning as a means of preventing ?love bombing? behaviors. Reports ?I feel okay with me right now? and explained wanting to explore dating to add to her life, not as a means of completing her or feeling ?whole?. Risks/Concerns:: Daily symptom tracker notes no suicidal ideations, plan, or intent. Progress Toward Goals/Plan:: Progress noted. Pt reports improved mood stability and increased application of self-compassionate approaches to her daily life. Pt is actively working on accepting herself as she is and reducing people pleasing or reassurance seeking tendencies. Pt reports she is working on reducing over apologizing and reminding herself she is not a problem to be fixed. Pt shared doing better with recognizing when she is overthinking or placing unnecessary stress on herself. Continues to struggle with consistent emotion regulation and negative self-talk, though is making strides in this area. Recommended continued IOP tx to improve mood stability, decrease rumination, and prevent decompensation. Time Stopped:: 13:15
--- NOTE | 2024-12-15 09:00 | BH.SGPN.GN ---
Behaviors/Verbalizations/Mental Status: [] Eye contact is good. Motor activity is appropriate. Appearance is casual. Speech is Appropriate. Mood is content. Affect is congruent. Thoughts are linear and logical. No evidence of psychosis. Reviewed daily check in sheet and no reports of suicidal ideations or intent. Client Response/Progress/Benefit: [] Pt was an active participant in group discussions. Attentive. Daily symptom tracker notes 10/10 for depression and 10/10 for anxiety. Did well to identify 2 mental health wins including reconnecting with an old friend and spending time hiking. Shared it was nice to expand her support network as well. Additional win noted as catching and challenging negative self-talk statements before they escalated further. Stressor noted as increased self-criticism but did well to identify several skills she can implement to continue to manage and reduce these thoughts. Benefited from group support, encouragement, and feedback. Will continue in IOP to prevent decompensation, promote ongoing mood stability, and increase healthy coping. Narrative Note: []
--- NOTE | 2024-12-15 10:10 | BH.SGPN.GN ---
Behaviors/Verbalizations/Mental Status: [] Eye contact is good. Motor activity is appropriate. Appearance is casual. Speech is Appropriate. Mood is anxious and content. Affect is congruent. Thoughts are linear and logical. No evidence of psychosis. Client Response/Progress/Benefit: [] Pt was engaged and participating throughout, providing input and taking notes. Attentive during psychoeducation on anxiety and cognitive triangle. Participated in an interactive discussion on defining anxiety and identifying cognitive and physiological symptoms of anxiety. The group discussed the role of anxiety on isolation, avoidance, and overall functioning. Pt identified their physical/physiological signs of anxiety which includes: tingling hands, heart palpitations, foggy brain, urge to run, feeling frozen. Benefited from increased awareness and insight on anxiety and its impact. Will continue in IOP to prevent decompensation/re-admission to psych unit, increase healthy coping, and improve functioning. Narrative Note: []
--- NOTE | 2024-12-15 11:10 | BH.SGPN.GN ---
Behaviors/Verbalizations/Mental Status: []Pt alert and oriented, casually dressed and groomed. Eye contact good. Motor activity appropriate. Speech within normal limits. Affect congruent, mood anxious and euthymic. Thoughts linear, logical, no signs of hallucinations or delusions. Client Response/Progress/Benefit: [] Pt was an active participant AEB pt providing input and listening attentively to peers. Attentive during psychoeducation on mindfulness coping skills and their impact on reducing anxiety and improving overall mental health wellness. Group was able to identify self-soothing and mind-based coping skills which included: 5-senses, meditation, deep breathing, TIPP, thought challenging, categories, and progressive muscle relaxation. Pt also participated with peers in practicing mindfulness skills in session including deep breathing. Pt would like to work on art and meditation to manage anxiety. Appeared to benefit from increasing repertoire of anxiety reduction skills. Pt will continue IOP to promote healthy coping skills, challenge distortions, and prevent decompensation.
--- NOTE | 2024-12-16 09:05 | BH.SGPN.GN ---
Behaviors/Verbalizations/Mental Status: [] Pt alert and oriented, neatly dressed and groomed. Eye contact good. Motor activity appropriate. Speech within normal limits. Affect congruent, mood euthymic. Thoughts linear, logical, no signs of hallucinations or delusions. Reviewed pt?s symptom tracker, no risk for suicidal ideation, plan, or intent 12/16/24. Client Response/Progress/Benefit: []Pt was an active participant in group discussions. Attentive. Able to identify mental health wins including signing up for a 10k which is a goal in the past pt would not allow herself to try and running with her son recently. Pt's stressor today is I don't think I actually have one. Pt stated feeling regulated this morning. Pt receptive to feedback from peers which pt reported was helpful. Progress noted. Benefited from group support, encouragement, and feedback. Will continue in IOP to reinforce healthy coping skills, combat distortions, and improve self-confidence. Narrative Note: []
--- NOTE | 2024-12-16 10:15 | BH.SGPN.GN ---
Behaviors/Verbalizations/Mental Status: [] Eye contact is good. Motor activity is appropriate. Appearance is casual. Speech is Appropriate. Mood is anxious. Affect is congruent. Thoughts are linear and logical. No evidence of psychosis Client Response/Progress/Benefit: [] Pt engaged in session AEB listening attentively to others and providing input throughout. Pt engaged in activity, able to connect how it can be uncomfortable and difficult to practice acceptance when situations are out of one?s own control. Worked with peer group to define acceptance and identify the benefits that acceptance can bring. Benefits included; reduce stuckness, reduced stress, helps one to focus on situations we can change, and decreased negative self-talk. Seemed to benefit from increased awareness of the meaning as well as the importance of acceptance. Will continue in PHP to prevent decompensation/re-admission to psych unit, stabilize mood, maintain safety, and improve functioning. Narrative Note: []
--- NOTE | 2024-12-16 11:15 | BH.SGPN.GN ---
Behaviors/Verbalizations/Mental Status: []Pt alert and oriented, casually dressed and groomed. Eye contact good. Motor activity appropriate. Speech within normal limits. Affect congruent, mood content. Thoughts linear, logical, no signs of hallucinations or delusions. Client Response/Progress/Benefit: [] Pt responded well to session AEB taking notes and contributing to discussion throughout. Pt engaged as group continued discussion on acceptance and the mental health benefits of practicing acceptance. Pt and peers identified what makes acceptance challenging and pt completed a self-reflection exercise on what is hard to accept in pt's life. Pt identified something that is currently hard to accept as her own imperfections. Client stated by not accepting this it leads to feeling not good enough, shame, and reassurance seeking. Group identified strategies to increase acceptance. Pt noted wanting to work on focusing on self-compassion and dialectical thinking. Pt appeared to benefit from gaining insight and learning strategies to increase acceptance. Pt will continue IOP tx to improve view of self, increase mood stability, and prevent decompensation. Narrative Note: []
--- NOTE | 2024-12-20 09:05 | BH.SGPN.GN ---
Behaviors/Verbalizations/Mental Status: [] Eye contact is good. Motor activity is appropriate. Appearance is casual. Speech is Appropriate. Mood is depressed. Affect is flat. Thoughts are linear and logical. No evidence of psychosis. Reviewed daily check in sheet and no reports of suicidal ideations or intent. Client Response/Progress/Benefit: [] Pt was an active participant in group discussion. Attentive. Spent time with support all weekend. Engaged and enjoyed the interactions however feels like she might have over-extended herself. ? I crashed yesterday?. ? My brain is overstimulated?. Group did well to normalize being tired and overstimulated after long periods of being social. Insight that she tends to push herself to keep moving so taking some time rest which actually a win. Progress noted. Benefited from group support, encouragement, and feedback. Will continue in IOP to prevent decompensation/re-admission, increase healthy coping, and improve functioning Narrative Note: []
--- NOTE | 2024-12-20 11:05 | BH.SGPN.GN ---
Behaviors/Verbalizations/Mental Status: []Eye contact is good. Motor activity is appropriate. Appearance is casual. Speech is Appropriate. Mood is content. Affect is congruent. Thoughts are linear and logical. No evidence of psychosis. Client Response/Progress/Benefit: []Pt was an active participant in group discussion. Engaged and attentive during psychoeducation and interactive discussion on coping skills, why people use unhealthy coping skills, how to replace unhealthy coping skills, and internal vs external coping skills. Attentive as peers came up with list of unhealthy coping skills. Pt reported personally, they tend to either ?obsessively ruminate? or isolate and distract to avoid. Group discussed the effects of maladaptive coping skills on mental health. Benefited from increased understanding of unhealthy coping skills and the need for developing healthy internal and external coping skills. Actively participated during experiential group activity and was able to related this activity to group topic. Will continue in IOP to maintain healthy thinking patterns, consistently apply healthy coping skills, and promote ongoing mood stability. Narrative Note: []
--- NOTE | 2024-12-20 11:15 | BH.SGPN.GN ---
Behaviors/Verbalizations/Mental Status: []Pt alert and oriented, casually dressed and groomed. Eye contact good. Motor activity appropriate. Speech within normal limits. Affect congruent, mood euthymic. Thoughts linear, logical, no signs of hallucinations or delusions. Client Response/Progress/Benefit: [] Pt responded well to session, taking notes and contributing when prompted. Group discussed the different categories of coping skills which included distraction, emotional release, grounding, self-love, and thought challenging. Pt participated in creating a coping skills ?menu? from the different categories of coping skills. Pt's coping skill menu included: accomplishing something small, T.I.P.P, setting boundaries, and cognitive diffusion. Appeared to benefit from increasing their repertoire of healthy coping skills. Will continue IOP to promote mood stability, reduce negative self-talk, and improve distress tolerance skills. ? Narrative Note: []
--- NOTE | 2024-12-22 09:00 | BH.SGPN.GN ---
Behaviors/Verbalizations/Mental Status: [] Eye contact is good. Motor activity is appropriate. Appearance is casual. Speech is Appropriate. Mood is anxious and dysthymic. Affect is congruent. Thoughts are linear and logical. No evidence of psychosis. Reviewed daily check in sheet and no reports of suicidal ideations or intent. Client Response/Progress/Benefit: [] Pt was an active participant in group discussions. Attentive. Daily symptom tracker notes 2/5 for depression and 2/5 for anxiety. Did well to identify 2 mental health wins including being able to spend time on self-care yesterday. Described gardening and spending time outdoors. Additional win noted as practicing self-compassion with herself for potentially overdoing it yesterday. Reports her relationship with herself and managing her mental health remain an ongoing stressor that she is trying to better manage. Benefited from group support, encouragement, and feedback. Will continue in IOP to prevent decompensation, promote mood stability, and increase consistent use of healthy coping. Narrative Note: []
--- NOTE | 2024-12-22 10:10 | BH.SGPN.GN ---
Behaviors/Verbalizations/Mental Status: []Pt alert and oriented, casually dressed and groomed. Eye contact good. Motor activity appropriate. Speech within normal limits. Affect congruent, mood anxious. Thoughts linear, logical, no signs of hallucinations or delusions. Client Response/Progress/Benefit: [] Pt took notes and contributed to group discussions. Attentive during psychoeducation on growth mindset. Participated during the activity. Interactive group discussion on growth mindset in which group verbalized their current fixed mindsets and how they affect their mental health. Pt shared common fixed mindset thoughts they have. These thoughts lead to feeling disheartened about self and the world, not reaching out to others for help, and self-criticism. Pt shared a personal fixed thought It's not possible for me to have a healthy relationship because I have Borderline Personality Disorder. Pt able to connect negative impact fixed thoughts have on functioning. Pt benefited from increased awareness of growth mindset and fixed thoughts and how fixed thoughts impact their mental health. Will continue IOP to challenge negative thoughts, improve confidence, and prevent decompensation.
--- NOTE | 2024-12-22 11:10 | BH.SGPN.GN ---
Behaviors/Verbalizations/Mental Status: []Pt alert and oriented, casually dressed and groomed. Eye contact good. Motor activity appropriate. Speech within normal limits. Affect congruent, mood down. Thoughts linear, logical, no signs of hallucinations or delusions. Client Response/Progress/Benefit: [] Pt was an active participant during activity and discussion. Pt did well to remain attentive and participate as group worked on identifying characteristics and benefits of adopting a growth mindset. Worked with fellow participants in reframing the example fixed thoughts into growth mindset thoughts. Pt worked on changing own fixed thought and reframed the thought to ?BPD might cause challenges in relationships but I am capable of communicating and regulating myself.? Pt also wants to work on using dialectical thinking. Pt appeared to benefit from challenging own thoughts and engaging in the activity. Pt will continue IOP tx to promote mood stability, reduce negative self-talk, and increase distress tolerance. ? Narrative Note: []
--- NOTE | 2024-12-22 14:51 | BH.MDN ---
Multi-Disciplinary Note Note 60-min Individual: Time Started:: 12:08 Date: 12/22/24 Purpose of session/treatment goals addressed:: To process and challenge thoughts surrounding a recent stressor impacting pt mood stability Eye Contact:: Good Motor Activity:: Restless Appearance:: Casual Speech:: Pressured Mood:: Anxious Affect:: Congruent Thoughts:: Linear, Logical, Racing and No evidence of hallucinations/delusions noted Staff Interventions:: thought challenging, CBT techniques and strengths perspective Client Response:: Pt receptive of session, actively engaged throughout. Reports feeling a little ?off? this morning but is doing better since group discussion on coping skills. Reflected that she struggles with use of over distraction as a means of gaining a ?false sense of control?. Described frustration with herself as she had been ?doing better with taking care of myself and then I overdid it?. Reports feeling more scattered and anxious as a result. Shared beliefs this was the result of feeling triggered after making plans to go on a date. Described intrusive thoughts of ?what if you aren?t ready??, ?what if you hurt her because you aren?t ready??, ect. This led to pt cancelling their plans and instead tried to take a self-care day; however, found herself distracting herself to prevent from thinking and then ended up feeling more dysregulated as a result. Pt did well to process and challenge racing thoughts. Pt identified fear of ?If I allow myself to slow down and just chill, I?ll fall back into my old depressed ways?. Did well to challenge and identify evidence against these thoughts. Plans to allow herself to intentionally slow down this afternoon. Risks/Concerns:: Daily symptom tracker notes no suicidal ideations, plan, or intent. Progress Toward Goals/Plan:: Progress variable. Pt continues to actively apply skills learned though struggles with overthinking and second-guessing herself. Reports recent regression in rumination and negative self-talk this week, though is trying to practice acceptance and not jump to thoughts of i've made no progress or i'm back at square one. Doing well to try and apply self-compassion with variable effectiveness. Recommended continued IOP treatment to promote mood stability, reinforce application of thought challenging and self acceptance, as well as prevent decompensation. Time Stopped:: 13:04
--- NOTE | 2024-12-23 09:00 | BH.SGPN.GN ---
Behaviors/Verbalizations/Mental Status: [] Client alert and oriented, casual appearance. Eye contact good. Motor activity restless. Speech within normal limits. Affect congruent, mood euthymic and slightly anxious. Thoughts linear, logical, no signs of hallucinations or delusions. Reviewed client's symptom tracker, no risk for suicidal ideation, plan, or intent. Client Response/Progress/Benefit: [] Client responded well to session AEB listening to others and sharing thoughts/feelings. Client reported mental positive as using a nervous system recent meditation last night which helped her fall asleep last night and wake up feeling calmer today. Client noted additional mental positive as being able to drive to [place] and stay for the entire school event for her son. Client noted this is significant progress because she often would have to leave her son's events or not even attend due to her mental health. Client noted additional mental positive as attending writing group tonight at the [employer] [place]. Appeared to benefit from support from peers. Will continue IOP tx to promote utilization of healthy coping skills, improve view of self, and prevent decompensation. Narrative Note: []
--- NOTE | 2024-12-23 10:15 | BH.SGPN.GN ---
Behaviors/Verbalizations/Mental Status: []Pt alert and oriented, casually dressed and groomed. Eye contact good. Motor activity appropriate. Speech within normal limits. Affect congruent, mood dysthymic. Thoughts linear, logical, no signs of hallucinations or delusions. Client Response/Progress/Benefit: [] Pt was an active participant in group discussions. Attentive during psychoeducation on the CBT [place] (Thoughts, Behaviors, Emotions). Engaged in group discussion on how thoughts and behaviors can contribute to maintaining adverse feelings, such as depression, anxiety, and irritability. Completed worksheet in which pt identified obstacles and/or thoughts that are keeping them stuck. Shared obstacles that included; ruminating, trying to control things, shutting down, and avoiding intimacy. Pt benefited from increased awareness of the basis of CBT therapy as well as specific thoughts that are impacting pt's progress. Will continue in IOP to prevent decompensation/ re-admission to psych unit, maintain safety, and increase functioning.
--- NOTE | 2024-12-23 11:15 | BH.SGPN.GN ---
Behaviors/Verbalizations/Mental Status: []Pt alert and oriented, casually dressed and groomed. Eye contact good. Motor activity appropriate. Speech within normal limits. Affect congruent, mood anxious. Thoughts linear, logical, no signs of hallucinations or delusions. Client Response/Progress/Benefit: [] Pt responded well to session, contributing to discussion and attentive throughout. Pt identified a negative thought that has kept them stuck. Pt's thought was There is something fundamentally wrong with me? Pt reported when they think this way, pt isolates, overcompensates, and seeks validation. Pt worked to reframe the thought by finding more rational, realistic ways to look at the thoughts and then processed them within group setting. Pt reframed the thought to ?I am an imperfect human just like we all are and that is okay.? Pt appeared to benefit from practicing challenging negative thinking with peers and gaining coping skills. Pt will continue IOP tx to promote mood stability, increase thought challenging, and further increase self-compassion. Narrative Note: []
--- NOTE | 2024-12-27 09:00 | BH.SGPN.GN ---
Behaviors/Verbalizations/Mental Status: [] Eye contact is good. Motor activity is appropriate. Appearance is casual. Speech is Appropriate. Mood is dysthymic and anxious. Affect is congruent. Thoughts are linear and logical. No evidence of psychosis. Reviewed daily check in sheet and no reports of suicidal ideations or intent. Client Response/Progress/Benefit: [] Pt was an active participant in group discussions. Attentive. Shared some struggles late last week and over the weekend. ? I had like eight different moods on ?. ? I just dealing with all the things that I?ve been avoiding?. Elaborated on recent struggles and stressors which are causing negative thoughts and cognitive distortions. Progress noted. Benefited from group support, encouragement, and feedback. Will continue in IOP to prevent decompensation/re-admission to psych unit, stabilize mood, and increase health coping. Narrative Note: []
--- NOTE | 2024-12-27 10:20 | BH.SGPN.GN ---
Behaviors/Verbalizations/Mental Status: []Pt alert and oriented, neatly dressed and groomed. Eye contact good. Motor activity appropriate. Speech within normal limits. Affect congruent, mood euthymic. Thoughts linear, logical, no signs of hallucinations or delusions. Client Response/Progress/Benefit: [] Pt was attentive during psychoeducation and participated in group activity. Group discussed what contributes to a person?s perspective and how perspective can positively or negatively impact mental health treatment. Pt reflected on their perspective today and how it is impacting them. Pt shared their perspective is ?open and realistic? due to pt working on dialectical thinking and using affirmations. Pt appeared to benefit from increasing awareness of different perspectives and how they can affect mental health. Pt will continue IOP tx to promote gains, combat distortions, and improve daily functioning. ?? Narrative Note: []
--- NOTE | 2024-12-27 11:20 | BH.SGPN.GN ---
Behaviors/Verbalizations/Mental Status: []Pt alert and oriented, casually dressed and groomed. Eye contact good. Motor activity appropriate. Speech within normal limits. Affect congruent, mood content. Thoughts linear, logical, no signs of hallucinations or delusions. Client Response/Progress/Benefit: []Pt was attentive and contributed to group discussion. Pt worked with group to identify strategies that can help with challenging negative perspective. Pt stated they can practice using dialectical thinking to challenge negative perspective. Pt completed strengths exploration worksheet, identifying personal strengths. Pt able to acknowledge how these strengths are helping pt and can continue to help pt in mental health journey. Pt identified wanting to work on leaning on strength of creativity and artistic ability for healthier emotional expression. Benefited from identifying personal strengths and strategies for enhancing use of identified strengths. Pt will continue IOP tx to continue improve functioning, mood stability, and prevent decompensation. Narrative Note: []
--- NOTE | 2024-12-29 09:00 | BH.SGPN.GN ---
Behaviors/Verbalizations/Mental Status: [] Eye contact is good. Motor activity is appropriate. Appearance is casual. Speech is Appropriate. Mood is euthymic. Affect is congruent. Thoughts are linear and logical. No evidence of psychosis. Reviewed daily check in sheet and no reports of suicidal ideations or intent. Client Response/Progress/Benefit: [] Pt was an active participant in group discussions. Attentive. Did well to identify 2 mental health wins. Wins included making a point to do a few things outside of her comfort zone yesterday. Reflected that this did help improve her mood and sense of accomplishment. Additional win noted as feeling less anxious and more accepting of her mood fluctuations. Stressor noted as fear that she may be on the verge of hypomania. Benefited from group support, encouragement, and feedback. Will continue in IOP to prevent decompensation, promote mood stability, and increase consistent use of healthy coping. Narrative Note: []
--- NOTE | 2024-12-29 10:10 | BH.SGPN.GN ---
Behaviors/Verbalizations/Mental Status: []Pt alert and oriented, neatly dressed and groomed. Eye contact good. Motor activity appropriate. Speech within normal limits. Affect congruent, mood euthymic. Thoughts linear, logical, no signs of hallucinations or delusions. Client Response/Progress/Benefit: []Pt participated during small group discussions. Attentive during psychoeducation about defense mechanisms. Showed engagement during small group discussions and helped group identify which defense mechanisms were maladaptive, adaptive, or ?somewhere in the coles.? Pt worked with small group on identifying how each defense mechanism can impact mental health and gave examples. Pt stated she gained awareness that a lot of defense mechanisms are coles..?Seemed to benefit from gaining awareness about the different defense mechanisms. Pt to continue IOP tx to promote gains, improve self-compassion, and reduce negative self-talk. Narrative Note: []
--- NOTE | 2024-12-29 11:10 | BH.SGPN.GN ---
Behaviors/Verbalizations/Mental Status: []Pt alert and oriented, neatly dressed and groomed. Eye contact good. Motor activity appropriate. Speech within normal limits. Affect congruent, mood euthymic. Thoughts linear, logical, no signs of hallucinations or delusions. Client Response/Progress/Benefit: [] Pt responded well to session, participating in activity and small group discussion. Group reviewed the rest of the defense mechanisms and discussed how these are adaptive, maladaptive, or somewhere in the coles. Pt's defense mechanisms included suppression, self-discipline, and sublimation. Pt stated has learned how to not make suppression become harmful, but pt still struggles with over use of self-discipline. Pt listened to collection team lead teach different skills to help pt?s cope with or change their defense mechanisms. Pt appeared to benefit from gaining insight to the different defense mechanisms and learning coping skills. Pt will continue IOP tx to promote mood stability and reinforce healthy coping skills. Narrative Note: []
--- NOTE | 2024-12-29 11:59 | PCM.BH.PN_ITS ---
Progress Note Progress Note: History of Present Illness/Interim History: The patient is a 34-year-old female with a history of bipolar disorder, anxiety, borderline personality disorder, alcohol use disorder (sober since 2022) and nicotine dependence who is seen in follow-up at the [facility] behavioral health IOP. Last saw the patient 3 weeks ago and no medication changes were made at that time. The patient states that she feels that her mood is a tiny bit hypomanic as she feels in a good mood. She states that a friend kept her up over the weekend and that losing sleep sometimes triggers her hypomania. She feels she is doing well overall and is still sleeping 8 hours a night. She denies any impulsive or risky behavior. She feels that if she ramped herself down and keeps regular sleep-wake hours that she will be able to prevent herself from getting more hypomanic. She is compliant with medication and tolerating it well. 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 She denies passive thoughts of , suicidal ideation, thoughts of self-harm, homicidal ideation, hallucinations or delusions. Current Psychiatric Medications: [] Caplyta 10.5 mg p.o. daily; Linzess from PCP for constipation. Patient discontinued Trileptal after weaning it about 1 month ago and feels much better off of it and does not wish to restart it. Mental Status Examination: [] Patient is a 34-year-old female with orange dyed hair who is seen wearing a baseball cap and appears normal for stated age and is casually dressed and groomed with good hygiene. She has no psychomotor agitation or retardation and is ambulatory with a normal gait. Eye contact is good and speech is normal rate and rhythm and fluent with no pressure. Mood is euthymic. Affect is full and normal. Thought process is goal-directed and organized. Thought content: The patient is confident that she can manage her mild mood swings. There is no evidence of passive thoughts of , suicidal ideation, homicidal ideation, hallucinations, delusions or grandiosity or other symptoms of ange. Reality testing is intact. Judgment is intact. Insight is good. Impulsivity is moderate. Diagnoses: [] 1. Bipolar disorder, NOS (F31.9) 2. Borderline personality disorder 3. Generalized anxiety disorder 4. Alcohol use disorder in full remission since 2022 5. Nicotine dependence 6. Work and financial issues Plan: [] The patient will continue the IOP as the structure, support, education and group therapy will hopefully prevent worsening of the patient's symptoms. She felt safe during the interview and if it anytime she does not feel safe she agrees to let us know or go to the emergency room. No medication changes were made today. Long discussion was had about keeping regular sleep-wake hours and avoiding stress and other known triggers for her mood swings. She will continue to follow-up with her outpatient providers and I will see the patient in follow-up while she is in the IOP and 2 weeks.
--- NOTE | 2024-12-29 15:11 | BH.MDN_ITS ---
Multi-Disciplinary Note Note 45-min Individual: Time Started:: 08:20 Date: 12/29/24 Purpose of session/treatment goals addressed:: To address current stressors as well as review areas of continued progress and begin discharge planning. Eye Contact:: Good Motor Activity:: Appropriate Appearance:: Casual Speech:: Appropriate Mood:: Euthymic Affect:: Congruent Thoughts:: Linear, Logical and No evidence of hallucinations/delusions noted Staff Interventions:: motivational interviewing, CBT techniques, discharge planning and strengths perspective Client Response:: Pt receptive of session, actively engaged throughout. Reports doing better this week, though expressed some concern she may be getting hypomanic. Shared recognizing she is speaking more without thinking through first, as well as reports increased energy. Shared knowing what she needs to do to manage these sx and identified plans engage in more mindfulness, grounding, and deep breathing to keep her body calmer, as well as consistently check-in with her mother who is a major support. Pt went on to discuss making the decision to continue to pursue dating and reached out to the woman she had been talking to. Described opening up to her about being afraid to start a relationsh ip again after her most recent relationship. Shared that she is trying to ensure she ?does things right? this time and does not enter a relationship based solely on emotion as she has in the past. Discussed her boundaries and the importance of safety. Pt notes that she maintains a desire to take this very slowly and intentionally to prevent from losing her sense of self or hurting one another. Reviewed characteristics of healthy relationships. Risks/Concerns:: Daily symptom tracker notes no suicidal ideations, plan, or intent. Progress Toward Goals/Plan:: Progress noted AEB pt self-report of improved mood and decreased rumination. Reports continued application of self-compassion and challenging thoughts of needing to do more. Improved communication within her interpersonal relationships. Decreased anxiety and irritability. Ongoing inconsistency in distress tolerance. Recommended continued IOP tx to promote consistent skill application, prevent decompensation, and improve self- acceptance. Time Stopped:: 09:01
== END 2025-01-03 23:59 ==
LOC: BHIOP 07:36
PROVIDERS: Referring Provider Psychiatry & Neurology Psychiatry; Visit Provider Psychiatry & Neurology Psychiatry
DX: F60.3 Borderline personality disorder (principal); F31.9 Bipolar disorder, unspecified; F41.1 Generalized anxiety disorder; F10.91 Alcohol use, unspecified, in remission; F17.210 Nicotine dependence, cigarettes, uncomplicated
CPT/HCPCS: S9480; 90834; 90837; 90853

== ENCOUNTER 2025-01-04 07:07 | Outpatient (RCR) | payer MEDICARE, MEDICAID, SELFPAY ==
--- NOTE | 2025-01-04 09:02 | BH.SGPN.GN ---
Behaviors/Verbalizations/Mental Status: [] Pt alert and oriented, casually dressed and groomed. Eye contact good. Motor activity appropriate. Speech within normal limits. Affect congruent, mood content. Thoughts linear, logical, no signs of hallucinations or delusions. Reviewed pt?s symptom tracker, no risk for suicidal ideation, plan, or intent 01/04/25. Client Response/Progress/Benefit: []Pt was an active participant in group discussions. Attentive. Able to identify mental health wins including being able to manage her emotions while her son was off school for a week, as well as taking time to get back into painting. Pt's stressor today is that tomorrow is her last day of IOP tx and she feels ready but anxious about this. Pt is feeling chill? this morning. Pt receptive to feedback from peers which pt reported was helpful. Progress noted. Benefited from group support, encouragement, and feedback. Will continue IOP tx to promote use of healthy coping skills and maintain mood stability. Narrative Note: []
--- NOTE | 2025-01-04 10:10 | BH.SGPN.GN ---
Behaviors/Verbalizations/Mental Status: []Client alert and oriented, casually dressed and groomed. Eye contact good. Motor activity appropriate. Speech within normal limits. Affect congruent, mood content. Thoughts linear, logical, no signs of hallucinations or delusions. Client Response/Progress/Benefit: [] Pt responded well to session AEB sharing and listening attentively to others. Group provided examples of benefits of having social support, including: validation, get perspective, and accountability. Pt also participated in group discussion regarding the barriers to accessing support identifying examples to include: negative thinking, lack of communication, and lack of trust. Personal example identified as lack of awareness on ?what support I might need.? Pt participated in experiential activity illustrating the impact communication, boundaries, and patience play in creating healthy support systems. Pt appeared to benefit from increased knowledge of the benefits of social support and greater self-awareness. Pt to continue IOP to promote mood stability, reinforce healthy coping skills, and further increase self-confidence. Narrative Note: []
--- NOTE | 2025-01-04 11:10 | BH.SGPN.GN ---
Behaviors/Verbalizations/Mental Status: Client alert and oriented, casually dressed and groomed. Eye contact fair. Motor activity appropriate. Speech within normal limits. Affect congruent, mood euthymic. Thoughts linear, logical, no signs of hallucinations or delusions. Client Response/Progress/Benefit: Pt participated throughout AEB contributing to discussion, providing examples, and taking notes. Pt provided input during discussion on the types of support our supports can provide. Pt able to identify current support system and barriers that get in the way of using supports. Pt reported after identifying what type of supports pt receives, pt gained awareness that pt could benefit from continuing to reinforce her current support system because she believes she has a solid support network. Pt stated continuing to challenge negative thoughts will help her with utilizing her supports consistently. Pt seemed to benefit from identifying the type of support pt needs to work on improving. Pt recommended to continue IOP tx to promote use of healthy coping skills, challenge negative thoughts, and prevent decompensation.
--- NOTE | 2025-01-05 09:00 | BH.SGPN.GN ---
Behaviors/Verbalizations/Mental Status: [] Client alert and oriented, casual appearance. Eye contact good. Motor activity appropriate. Speech within normal limits. Affect congruent, mood anxious and positive. Thoughts linear, logical, no signs of hallucinations or delusions. Reviewed client's symptom tracker, no risk for suicidal ideation, plan, or intent. Client Response/Progress/Benefit: [] Client responded well to session AEB listening to others and sharing thoughts/feelings. Client reported mental health positive as yesterday spending time with a woman she has been talking to and is happy she pushed through some anxiety to who hang out this person. Client stated mental health positive and stressor is today is her last day in [facility]. Client stated she is able to see significant treatment progress compared to when she first saw the program but is feeling anxious that she will have the same support that she has had when she has been here. Appeared to benefit from support from peers. Will discharge from [facility] today.
--- NOTE | 2025-01-05 10:10 | BH.SGPN.GN ---
Behaviors/Verbalizations/Mental Status: [] Eye contact is good. Motor activity is appropriate. Appearance is casual. Speech is Appropriate. Mood is euthymic. Affect is full. Thoughts are linear and logical. No evidence of psychosis. Client Response/Progress/Benefit: [] Pt was an active participant in group discussions. Attentive during psychoeducation AEB note taking and completing worksheets. Worked within his small group to identify benefits of healthy sleep routine which include decreased stress, more energy, improved decision-making, improved health benefits, improved focus, and decreased anger. Pt and peers also identified the consequences of poor sleep which included irritability, crankiness, feeling on edge, increase arguments, poor emotion regulation, low energy, low motivation, and more challenging to engage with support. Also participated in discussion on the obstacles and barriers that can prevent one from obtaining good sleep. Benefited from group to increase awareness and education on importance of sleep and healthy/unhealthy choices that impact sleep. Will be discharged successfully from [facility] today.. Narrative Note: []
--- NOTE | 2025-01-05 11:15 | BH.SGPN.GN ---
Behaviors/Verbalizations/Mental Status: []Pt alert and oriented, casually dressed and groomed. Eye contact good. Motor activity appropriate. Speech within normal limits. Affect congruent, mood anxious and content. Thoughts linear, logical, no signs of hallucinations or delusions. Client Response/Progress/Benefit: [] Pt responded well to session, participating in small group discussion. Group reviewed the rest of the ?Do?s and Don?ts? of healthy sleep hygiene. Pt worked to identify their current schedule leading up to sleep and review areas that may be helping or hindering healthy sleep. Worked with group to identify strategies to improve sleep routines. Pt identified wanting to begin meditating prior to bedtime. Pt appeared to benefit from gaining insight to the different behaviors that can adversely effect sleep, as well as learning skills for improving sleep hygiene. Pt will continue in outpatient tx to prevent decompensation, improve daily functioning, and prmote use of healthy coping skills. Narrative Note: []
--- NOTE | 2025-01-05 15:08 | BH.MDN ---
Multi-Disciplinary Note Note 30-min Individual: Time Started:: 12:13 Purpose of session/treatment goals addressed:: To review treatment progress and discuss strategies for continued maintenance. Another goal was to discuss discharge and aftercare. Eye Contact:: Good Motor Activity:: Restless Appearance:: Casual Speech:: Appropriate Mood:: Euthymic and Anxious Affect:: Congruent Thoughts:: Linear, Logical and No evidence of hallucinations/delusions noted Staff Interventions:: CBT techniques, mindfulness skills, discharge planning, strengths perspective and reviewed DSM-5 Client Response:: Pt responded well to session, open to meeting with therapist. Pt reports she is overall doing well; however, today is feeling more anxious. Attributes this increase in anxiety to it being her last day, as well as a fellow group member sharing a triggering story during first group this morning. Reports she feels she is managing her anxiety well and did not allow herself to get upset with herself or disconnect as she would have in the past. Pt went on to reflect on several areas of progress over the past few months. This included an improved sense of self-compassion and acceptance. Described taking pride in her ability to now ?embrace the unhinged aspects of me? without feeling broken or as though she needs to constantly be ?fixing? herself. Additional progress reported in better ability to apply dialectical thinking skills and more intentionality behind who she spends her time with. Went on to describe progress with reduction of reassurance seeking and over apologizing, which pt believes has aided in improving her interpersonal relationships as well. Pt responded well to reviewing skills and thought challenge techniques she can use to aid with ongoing maintenance as well as prevent decompensation. Risks/Concerns:: Pt denies any suicidal ideations, plan, or intent. Pt denies any thoughts of . Progress Toward Goals/Plan:: Pt continues to make progress towards tx goals AEB self-report of improved mood and functioning, as well as reduction in DSM-5 scores since admission. Pt also reports improvement in self-confidence, acceptance, self-compassion, and regulation of anxiety and depressive symptoms. Pt is more engaged with supports and within the community, reports reduced isolation, improved sleep, and better sense of self-confidence. Pt got connected with [facility] for outpatient counseling services and will d/c from [facility] tx on this date. Time Stopped:: 12:45
--- NOTE | 2025-01-05 15:40 | BH.DS ---
Discharge Summary Demographics Date of Admission:: 11/18/24 Discharge Date: 01/05/25 Presenting Problems at Admission:: Sushma Vogt is a 34 year old female who presents today for IOP intake. Admits to having history of Bipolar disorder and borderline personality disorder. Patient reports to having been started on lumapeterone and this was one of the first medications that actually worked. Denies history of ange, but has hypomanic symptoms including spending and mood swings. Admits to poor response to antidepressants in the past. Was previously on lamotrigine but felt that it worsened brain fog and almost worsened her BPD symptoms. Was having emotional outbursts on medications. While self adjusting medication tried to break a picture on the wall and then went to the hospital. Was subsequently admitted to [facility] and was weaned off all meds and started on trileptal. Was titrated to 300 mg, and was told to restart Caplyta when she was discharged. Was feeling more depressed recently, so has self reduced her trileptal and feels like she is actually doing better. Describes mood today as not great. Feels very tired secondary to her mental health. Admits to having a history of binge eating in the past which almost led to some restrictive eating. Discharge Diagnoses:: 1. Bipolar disorder, NOS (F31.9) 2. Borderline personality disorder 3. Generalized anxiety disorder Reason for Discharge:: Pt has accomplished tx goals AEB reduction of DMS-5 symptoms, self-report of improved functioning and mood, and improved outlook. Pt no longer meets criteria for IOP level of care and will discharge to outpatient counseling. Treatment Progress During Treatment & Response: Pt has responded well to treatment as evidenced by Pt consistently attending IOP sessions and reduction of DSM-5 scores since admission. Pt was always attentive and receptive to learning during group and individual sessions. Pt actively applied coping skills outside of IOP and reports overall mood is improved and she is functioning better than several months ago. Pt?s overall symptom reduction is 40% since admission with anger decreasing by 33%, depression decreasing by 50%, and anxiety sx decreasing by 30%. Pt has increased self-compassion and motivation. Most importantly, Pt has become more self-accepting, compassionate, and confident in her abilities. Pt will follow up with [facility] for medication management and [facility] for individual therapy. Issues Still to be Addressed:: Pt can benefit from continuing to improve self-talk, self-compassion, boundary setting, and expressing her needs. Discharge Recommendations/Instructions:: Pt will follow up with [facility] for medication management. Pt will also follow up with Gracia at [facility] for individual counseling. Pt will begin IOP aftercare starting on 01/13/25. Discharge Handout
== END 2025-01-05 13:02 | disposition home or self-care (01) ==
LOC: BHIOP 07:07
PROVIDERS: Referring Provider Psychiatry & Neurology Psychiatry; Visit Provider Psychiatry & Neurology Psychiatry
DX: F60.3 Borderline personality disorder (principal); F31.9 Bipolar disorder, unspecified; F41.1 Generalized anxiety disorder; F10.91 Alcohol use, unspecified, in remission; F17.210 Nicotine dependence, cigarettes, uncomplicated
CPT/HCPCS: S9480; 90832; 90853

== ENCOUNTER → 2025-01-12 | Outpatient (CLI) | payer MEDICARE, MEDICAID, SELFPAY ==
--- NOTE | 2025-01-12 09:36 | US_ITS ---
PROCEDURE: EXT NON VASC LIMITED/SOFT TISS 01/12/2025 REASON FOR EXAM: PALP LUMP GROIN TECHNIQUE: Ultrasound targeted to the palpable abnormality at the . COMPARISON: None. FINDINGS: Limited sonogram of the right groin was performed in the area of palpable abnormality. This demonstrates 0.9 x 1.5 by 0.4 cm lymph node. A 2nd lymph node is identified which measures up to 1.3 by 1 by 0.3 cm. These lymph nodes appear morphologically within normal limits. Although the significance is difficult to ascertain. Recommend clinical correlation and further workup as clinically indicated. US/Ext Non Vasc Limited/Soft Tiss IMPRESSION: As above. Reading Location: [id number]
--- NOTE | 2025-01-12 09:36 | US_ITS ---
EXAM: Questionable palpable abnormality. CLINICAL HISTORY: Mobile nodules on patient's back and right inguinal region. COMPARISON: None. TECHNIQUE: Targeted sonogram of the right lower back was performed in the area of palpable abnormality. FINDINGS: No abnormal solid or cystic structure is seen within the area of palpable abnormality. US/Other Unlisted US Procedure IMPRESSION: No abnormal solid or cystic structure is seen within the area of palpable abnor mality. Patient may benefit from cross-sectional imaging at this time. Reading Location: [id number]
== END | disposition home or self-care (01) ==
LOC: US 09:35
PROVIDERS: Referring Provider Internal Medicine; Visit Provider Internal Medicine
DX: R22.9 Localized swelling, mass and lump, unspecified (principal); R19.00 Intra-abdominal and pelvic swelling, mass and lump, unspecified site
CPT/HCPCS: 76882; 76999

== ENCOUNTER 2025-01-13 14:00 | Outpatient (RCR) | payer MEDICARE, MEDICAID, SELFPAY ==
--- NOTE | 2025-01-13 14:00 | BH.COMM ---
Communication Note Communication with Client Communication Note: Patient completed IOP and presents today to start relapse prevention group which meets once weekly (1.5 hours) for 8 weeks. Case discussed with Dr. Whitlock with plan to admit with dx of F319
--- NOTE | 2025-01-13 16:05 | BH.MTP ---
Master Treatment Plan Patient Information Program Physician:: Dr.Sharon Whitlock Primary Therapist:: DANIEL Espinoza Psychiatric Diagnoses Psychiatric Diagnoses:: 1. Bipolar disorder, NOS (F31.9) 2. Borderline personality disorder 3. Generalized anxiety disorder Diagnosis Code(s):: F31.9 Estimated LOS Estimated LOS (in weeks):: 8 Problem/Goal #1 Problem/Goal #1 Stated Goal:: client will maintain or see a reduction in symptoms AEB client score on the DSM 5 cross-cutting measure and improve client's daily functioning. Objectives Objective #1: Stated Objective: Client will continue to consistently apply healthy coping skills to maintain progress made in IOP tx. Interventions: Through group therapy, client will review warning signs and triggers as well as healthy coping skills learned in IOP tx to successfully maintain gains while transitioning into outpatient therapy. Discharge Criteria: Client will have accomplished this goal when client's score on the DSM-5 cross-cutting measure has maintained or reduced over a 8 week period. Target Date: 03/03/25 Review Date: 02/10/25 Objective #2: Stated Objective: Client will learn and utilize 2-3 maintenance strategies to prevent decompensation from original IOP DSM-5 scores. Interventions: Through group therapy, client will be provided with education on healthy maintenance behaviors, relapse prevention techniques, and healthy coping strategies. Discharge Criteria: Client will have accomplished this goal when can report using at least 2 maintenance skills to prevent decompensation compared to original IOP DSM-5 scores Target Date: 03/03/25 Review Date: 02/10/25
== END 2025-02-02 23:59 ==
LOC: BHOG 14:00
PROVIDERS: Referring Provider Psychiatry & Neurology Psychiatry; Visit Provider Psychiatry & Neurology Psychiatry
DX: F31.9 Bipolar disorder, unspecified (principal); F60.3 Borderline personality disorder; F41.1 Generalized anxiety disorder
CPT/HCPCS: 90853

== ENCOUNTER → 2025-01-27 | Outpatient (CLI) | payer MEDICARE, MEDICAID, SELFPAY ==
[2025-01-31 16:08] LABS: HPV APTIMA, High Risk Negative (Negative)
[2025-02-01 07:04] LABS: HPV Reflexed? YES, CHARGE PATIENT
== END | disposition home or self-care (01) ==
LOC: LABSPEC 09:56
PROVIDERS: PCP Internal Medicine; Referring Provider Internal Medicine; Visit Provider Internal Medicine
DX: Z12.4 Encounter for screening for malignant neoplasm of cervix (principal); Z11.3 Encounter for screening for infections with a predominantly sexual mode of transmission
CPT/HCPCS: 87070; 87205; 87491; 87591; 87624; 87661; 88175; G0145

== ENCOUNTER 2025-02-03 07:37 | Outpatient (RCR) | payer MEDICARE, MEDICAID, SELFPAY ==
--- NOTE | 2025-02-03 12:28 | BH.MTP_ITS ---
Treatment Plan Review Demographics Date of Admission:: 01/13/25 Date of Treatment Plan Review:: 02/03/25 Admitting Diagnoses:: 1. Bipolar disorder, NOS (F31.9) 2. Borderline personality disorder 3. Generalized anxiety disorder Current Diagnoses:: 1. Bipolar disorder, NOS (F31.9) 2. Borderline personality disorder 3. Generalized anxiety disorder Patient Status Patient's Response to Treatment:: Pt continues to respond well to treatment AEB pt's consistent attendance, ongoing attentiveness and engagement in group discussions, and continued reporting use of skills outside treatment en vironment. Pt's symptoms are still 62% lower than they were at IOP admission. Status of Current Problems and Symptoms: Pt reports ongoing anxiety and depressive symptoms that have decreased in intensity, but are still present. Pt has been contacted by her ex and this worsened pt's mental health symptoms, leading to racing thoughts and anxiety. Pt reports she is beginning to feel better, but she still has rough days. Progress Problem #1: Problem Name:: Pt will maintain or see a reduction in sx Status of Goals:: Obj 1 - Complete with maintenance encouraged. Pt's depression decreased by 75% compared to IOP admission and anxiety has decreased by 40% compared to IOP admission. Obj 2 - complete with ongoing work encouraged. Pt has been reporting using opposite action, self-compassion, exercise, and dialectical thinking. Pt is also working on being more social and initiating hangouts with her friends. Team Recommendations:: Recommended client continue IOP aftercare group in addition to attending regular outpatient counseling in order to maintain gains. Pt also recommended to continue working on self-compassion, practice self-care, and setting realistic goals.
--- NOTE | 2025-02-10 14:00 | BH.SGPN.GN ---
Behaviors/Verbalizations/Mental Status: []Pt alert and oriented, neatly dressed and groomed. Eye contact good. Motor activity appropriate. Speech within normal limits. Affect congruent, mood euthymic. Thoughts linear, logical, no signs of hallucinations or delusions. Client Response/Progress/Benefit: [] Pt took notes and contributed to group discussions. Pt reports she has been seeing her therapist and taking medications consistently. Pt identified coping skills she has been using which included: deep breathing, guided imagery, exercise, gratitude, and affirmations. Pt engaged in discussion on habits and how they are formed. Pt gave examples of how to build healthy habits and reported benefitting from habit stacking. Pt shared she wants to work on building the habit of practicing gratitude when she drinks her morning coffee. Pt appeared to benefit from learning about building healthy habits and setting a habit goal. Will continue IOP aftercare to reinforce healthy coping skills and promote gains. ? Narrative Note: []
--- NOTE | 2025-03-03 15:35 | BH.SGPN.GN ---
Behaviors/Verbalizations/Mental Status: []Client alert and oriented, casually dressed and groomed. Eye contact good. Motor activity appropriate. Speech within normal limits. Affect congruent, mood euthymic. Thoughts linear, logical, no signs of hallucinations or delusions. Client Response/Progress/Benefit: []Pt responded well to session AEB sharing and listening attentively to others. Pt reports following up with therapy, psychiatry, and pt reports she is taking her medications consistently. Pt stated using reframing, radical acceptance, gratitude, self-soothing, and affirmations as primary coping skills used this past week. Pt participated in group discussion defining vulnerability, how and why we avoid it, and the benefits. Pt was an active participant and provided personal examples of being vulnerable and the positive things that came with this. Pt stated that pt would like to work on being vulnerable this week by reminding herself that she does not have to find something to be upset about when I'm doing well. Will discharge from [facility] aftercare today as she has accomplished her goals and met the 8 week requirement. Narrative Note: []
--- NOTE | 2025-03-03 15:35 | BH.SGPN.GN ---
Behaviors/Verbalizations/Mental Status: []Client alert and oriented, casually dressed and groomed. Eye contact good. Motor activity appropriate. Speech within normal limits. Affect congruent, mood euthymic. Thoughts linear, logical, no signs of hallucinations or delusions. Client Response/Progress/Benefit: []Pt responded well to session AEB sharing and listening attentively to others. Pt reports following up with therapy, psychiatry, and pt reports she is taking her medications consistently. Pt stated using reframing, radical acceptance, gratitude, self-soothing, and affirmations as primary coping skills used this past week. Pt participated in group discussion defining vulnerability, how and why we avoid it, and the benefits. Pt was an active participant and provided personal examples of being vulnerable and the positive things that came with this. Pt stated that pt would like to work on being vulnerable this week by reminding herself that she does not have to find something to be upset about when I'm doing well. Will discharge from [facility] aftercare today as she has accomplished her goals and met the 8 week requirement. Narrative Note: []
== END 2025-03-04 06:38 | disposition home or self-care (01) ==
LOC: BHOG 07:37
PROVIDERS: PCP Internal Medicine; Referring Provider Psychiatry & Neurology Psychiatry; Visit Provider Psychiatry & Neurology Psychiatry
DX: F31.9 Bipolar disorder, unspecified (principal); F60.3 Borderline personality disorder; F41.1 Generalized anxiety disorder
CPT/HCPCS: 90853

== ENCOUNTER → 2025-02-16 | Outpatient (CLI) | payer MEDICARE, MEDICAID, SELFPAY ==
--- NOTE | 2025-02-16 11:15 | RAD_ITS ---
PROCEDURE: LUMBAR SPINE 2 OR 3 VIEWS 02/16/2025 REASON FOR EXAM: Low back pain. TECHNIQUE: 2 view(s) of the lumbar spine COMPARISON: Comparison is made with prior study dated June 18, 2024. FINDINGS: Vertebrae: Unremarkable Discs: Minimal anterior spondylosis and disc space narrowing at the L2-L3 level. Mild disc space narrowing at the L5-S1 level. There has been no change. Alignment: Normal Other: RAD/Lumbar Spine 2 or 3 Views IMPRESSION: Mild degenerative changes at the L2-L3 and L5-S1 levels. Stable examination. Reading Location: [id number]
== END | disposition home or self-care (01) ==
LOC: MTRAD 11:15
PROVIDERS: PCP Internal Medicine; Referring Provider Physician Assistant; Visit Provider Physician Assistant
DX: M54.9 Dorsalgia, unspecified (principal)
CPT/HCPCS: 72100

== ENCOUNTER 2025-03-31 14:30 | Outpatient (RCR) | payer MEDICARE, MEDICAID, SELFPAY ==
--- NOTE | 2025-02-23 13:55 | HP.PTEVAL ---
Patient's Visit Information Visit Information Visit Information: DK PENA is a 34 year old F referred to Physical Therapy by WILLIE Fan with a diagnosis of LBP. Date of Evaluation: 02/23/25 Physical Therapist: Suman García, MARIA INEST, OCS, CSCS Visit Plan Frequency: 2-3x /Week Duration: 4-6 Weeks Plan: 3x/week for 3-6 weeks for: IE HEP: PPU every two hours, avoid sitting, sit with upright posture in firm chair only, avoid FW bending. treat with ext bias lumb ar ROM and progression of forces, PA mobs to lumbar and thoracic spine, postural correction and body mechanics, core strength to HEP, return to [employer] and jogging, TENS and MH as needed. Subjective Subjective: symptoms are back pain, chronically and issues since last year and found a little spina bifida last year. After running sat in car and got electric shocks. Went about daily activities and now whole back hurts. 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 Sitting makes it worse. Walking is better. been a month since she felt really good. Training for a 5k but did not do it due to back pain. Sleep is waking up sometimes with pain. Cleaning house hurts and doing laundry makes it worse. 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 Hiking /running: not doing. One mile hurt the other day. Gym at [employer] but not in a week. Saw ortho yesterday adn wants MRI. Pain LBP: Pain Intensity (Out of 10): 4 Pain Intensity Range: 4 and 8 Comment: into upper spine, tightnes in thoracic area. Objective Objective: reflexes 2/3 patella and achilles B Sensation wNL to gross light touch B LE strength 4/5 in LE with pain L hip extension in LB in prone otherwise not painful - SLR, - slump. LB AROM ext max limited and central pain, flexiona dn SB min limited. gait is normal today and trasnfers chair and bed are I but painful rolling and sit to sstand in LB. Repeated PPU increases ext ROM and no change to pain, PDM core strength 3+ abs and 3+ ext. Balance/Special Test Scores Oswestry Low Back Score: 22 Goals Goal 1:: full lumbar exteension without pain Goal Time Frame: 4-6 Weeks Goal 2:: [employer] without waking at night due to pain Goal Time Frame: 4-6 Weeks Goal 3:: Pain 0/10 at rest and 2/10 at worst adn 90% better/manageablee Goal Time Frame: 4-6 Weeks Goal 4:: I appropriate HEP to limit future problems Goal Time Frame: 4-6 Weeks Goal 5:: oswestry score 5 or better Goal Time Frame: 4-6 Weeks Goal 6:: return to gym adn jogging without pain Goal Time Frame: 4-6 Weeks Rehabilitation Potential Physical Therapy Diagnosis: limited motion and comfort in Lb movements effecting daily function. Rehabilitation Potential: Good Anticipated Interventions Patient/Client Instruction: Educate patient on: Condition and Plan of Care For the Purpose of:: To decrease pain, To increase ROM, To improve nutrient delivery to tissue, To improve muscle performance and motor function, To increase tolerance to activity/condition/position and To improve ability of physical actions for home/community/work/leisure Therapeutic Exercise to Include: Strength training, Postural training, Flexibilty training, Relaxation training, Passive ROM and Active ROM For the Purpose of:: To decrease pain, To increase ROM, To improve nutrient delivery to tissue, To improve muscle performance and motor function and To increase tolerance to activity/condition/position Manual Therapy Techniques to Include: Mobilization, Passive ROM and Soft tissue mobilization For the Purpose of:: To decrease pain, To increase ROM, To improve nutrient delivery to tissue, To improve muscle performance and motor function and To increase tolerance to activity/condition/position TENS: Yes Thermo therapy (hot pack): Yes For the Purpose of:: To decrease pain, To increase ROM and To improve nutrient delivery to tissue Text: Thank you for the opportunity to evaluate your patient. For Medicare and Medicare HMO plans, please review the plan of care and approve it. It will need to be FAXED BACK to us at [phone] for Medicare purposes. For Medicare only, by signing this I certify the plan of care. Please let me know if there are questions or concerns regarding this plan of care. Physician Signature: Date:
--- NOTE | 2025-03-31 15:18 | HP.PTDCSUM_ITS ---
Discharge Summary D/C summary: It has been my pleasure to treat DK PENA referred by WILLIE Fan, with the diagnosis of LBP for a total of 10 visit(s). Discharge Date: 03/31/25 Please see the following information for a summary of their discharge status. Subjective Subjective: No real change. Pain is slightly better but is resting and only doing exercises advised in PT. Overexertion gives her increased pain in LB and into Legs. Has not been back to orthopedic. MRI is scheduled next week then ortho. Jaylon gpPU a couple times peer day. Wants to hold on PT until after MRI follow, has concerns regarding central nervous systeem with tremors. Pain LBP: Pain Intensity (Out of 10): 3 R anterior hip: Pain Intensity (Out of 10): 0 Overall Improvement % Improvement: 5 Objective Objective/Function: Lumbar extension in standing is nil and painful centrally, better prone adn feels good. SB and flexion are mod limited but not painful. Walking well, appears to have slight full body tremors when sitting nervously today. 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 May ask to return to therapy after results depending but wants to hold for now and is not really improving. D/C Information Discharge Comments: Pt to have MRI then f/u with doctor due to lack of improvement with PT. d/c sentence: If there are questions or concerns regarding this patient's physical therapy, please feel free to call me at [phone]. Thank you for the referral of this patient. Sincerely, Suman García, DPT, OCS, CSCS Balance/Gait/Functional tests Balance/Special Test Scores Oswestry Low Back Score: 12 Improvement % Improvement: 5
== END 2025-03-31 19:00 | disposition home or self-care (01) ==
LOC: PT 14:30
PROVIDERS: PCP Internal Medicine; Referring Provider Physician Assistant; Visit Provider Physician Assistant
DX: M54.50 Low back pain, unspecified (principal); Q76.0 Spina bifida occulta
CPT/HCPCS: 97110; 97161; 97530

== ENCOUNTER 2025-03-31 20:47 | Emergency (ER) | payer MEDICARE, MEDICAID, SELFPAY ==
[2025-03-31 20:47] VITALS: BP 121/79; PULSE 102; RESP 14; TEMP 36.1; O2SAT 98; BMI 24.0
--- OUTSIDE RECORDS SUMMARY | 2025-03-31 22:39 | XMS RPT_ITS | CCD ---
Author Organization [facility] CliniSyia Care Team Providers Care Air/Ocean Export Clerk Name Role Phone ZACKARY SEWELL Unavailable Unavailable ZACKARY SEWELL Unavailable Unavailable NO REFERRING DR Unavailable Unavailable Paris Mccann Primary Care Provider Paris Mccann Primary Care Provider Paris Mccann APRN Primary Care Provide r Rachelle Miranda MA Unavailable Unavailable Jaison Pulido MD Primary Care Provider Unavailable Primary Care Provider Unavailabl e Unavailable Primary Care Provider Unavailabl e QUE ALSTON Referring Unavailable LAISHA GR, YOANDY Primary Care Physician ROXY DE LOS SANTOS DO Attending Unavailable LAISHA ELAINE-YOANDY MITCHELL Primary Care Unavaila ble SASHA ROBLES, [place] Primary Care Unavailab FELI Vasquez Attending Unavailable SASHA LIUREParveen, [place] Referring Unavailab maira ROBLES [place] Primary Care Unavailab ANA MARÍA Lopez Attending Unavailable Vinay Gonzalez Attending Unavailable [place], Jaci Primary Care Unavailable Viviana Jaci Referring Unavailable Edmond Arrieta Referring Unavailable Care Physician, No Primary Primary Care Unava ilable Jaci Michelle Attending Unavailable BRANDON SLAUGHTER Attending Unavailable Meenakshi, Edmond Primary Care Unavailable BRANDON SLAUGHTER Referring Unavailable Care Physician, No Primary Primary Care Unava ilable Travis Lara Attending Unavailable Meenakshi Edmond Primary Care Unavailable Ulices Jean Baptiste Referring Unavailable Ulices Jean Baptiste Attending Unavailable Meenakshi [place] Primary Care Unavailable Denisa Arrietaily Referring Unavailable Edmond Arrieta Attending Unavailable Viviana, Jaci Primary Care Unavailable Washington, Jaci Referring Unavailable Jose Holm Attending Unavailable Care Physician, No Primary Primary Care Unava ilable Care Physician, No Primary Referring Unava ilable Viviana, Jaci Attending Unavailable [place], Jaci Primary Care Unavailable Jose Holm Referring Unavailable Jose Holm Attending Unavailable Viviana, Jaci Primary Care Unavailable Washington, Jaci Referring Unavailable Viviana, Jaci Attending Unavailable [place], Jaci Primary Care Unavailable Betsy Crowder Referring Unavailable Betsy Crowder Attending Unavailable Care Physician, No Primary Primary Care Unava ilable Betsy Crowder Attending Unavailable Betsy Crowder Referring Unavailable Care Physician, No Primary Primary Care Unava ilable Venkatesh Bennettin Referring Unavailable Venkatesh Bennettin Attending Unavailable Donald Willy Admitting Unavailable Care Physician, No Primary Primary Care Unava ilable Betsy Crowder Referring Unavailable Betsy Crowder Attending Unavailable Ferullo, Edmond Primary Care Unavailable Ferullo, Edmond Referring Unavailable Ferullo Edmond Attending Unavailable [place], Jaci Primary Care Unavailable Ulices Jean Baptiste Referring Unavailable Ulices Jean Baptiste Attending Unavailable Viviana, Jaci Primary Care Unavailable Jose Holm Attending Unavailable Jose Holm Referring Unavailable Care Physician, No Primary Primary Care Unava ilable Betsy Crowder Attending Unavailable Betsy Crowder Referring Unavailable Care Physician, No Primary Primary Care Unava ilable Care Physician, No Primary Referring Unava ilable Washington, Jaci Attending Unavailable Care Physician, No Primary Primary Care Unava ilable Betsy Crowder Attending Unavailable Betsy Crowder Referring Unavailable Care Physician, No Primary Primary Care Unava ilable [place], Jaci Attending Unavailable Viviana, Jaci Referring Unavailable Ferullo, Edmond Primary Care Unavailable Ulices Jean Baptiste Attending Unavailable BRANDON SLAUGHTER Referring Unavailable Ferullo, Edmond Primary Care Unavailable Ferullo, Edmond Referring Unavailable Ferullo, Edmond Attending Unavailable Viviana, Jaci Primary Care Unavailable Washington, Jaci Referring Unavailable Betty Hernandez Attending Unavailable Viviana, Jaci Primary Care Unavailable Dieter López Attending Unavailable Jaci Michelle Primary Care Unavailable Jaci Michelle Referring Unavailable Jose Holm Attending Unavailable Allergies Allergy Classification Reported Allergen(s) Allergy Type Date of Onset Reaction(s) Facility (11 sources) nickel sulfate; Translations: [NICKEL] Drug Allergy 7 Rash [facility] (19 sources) Codeine; Translations: [CODEINE] Drug Allergy 0 Itching [facility] (12 sources) FLUoxetine; Translations: [FLUOXETINE] Drug Allergy 2 Edema, Unknown [facility] (11 sources) nickel Drug Allergy 7 Rash [facility] (1 source) Codeine Drug Allergy 5 [facility] (1 source) FLUoxetine Drug Allergy 5 [facility] (1 source) linaclotide Drug Allergy 5 [facility] (1 source) nickel Drug Allergy 5 [facility] Medications Current Medications Medication Drug Class(es) Dates Sig (Normalized) Sig (Original) amoxicillin 875 mg / clavulanate 125 mg oral tablet (2 sources) Penicillin-class Antibacterial Start: 12-08-2023 End: 12-15-2023 take 1 tablet by mouth twice daily amoxicillin-clav ulanate potassium (AUGMENTIN) 875-125 mg per tablet Take 1 tablet by mouth two times a day for 7 days. 14 tablet 0 12/08/2023 12/15/2023 Active Start: 07-18-2023 End: 07-25-2023 take 1 tablet by mouth twice daily amoxicillin-clavulanic acid (AUGMENTIN) 875-125 mg per tablet Take 1 tablet by mouth two times a day for 7 days. 14 tablet 0 07/18/2023 07/25/2023 Active Comment on above: Take 1 tablet by mckay two times a day for 7 days. CAPLYTA 10.5 mg capsule (5 sources) Start: 11-05-2023 CAPLYTA 10.5 mg capsule 11/05/2023 Active Start: 11-05-2023 CAPLYTA 10.5 m g capsule cephalexin 500 mg oral capsule (2 sources) Cephalosporin Antibacterial Start: 08-30-2024 End: 09-04-2024 take 1 capsule by mouth four times daily cephALEXin (KEFLEX) 500 mg capsule Take 1 capsule by mouth four times daily for 5 days. 20 capsule 08/30/2024 09/04/2024 Active clindamycin 10 mg/ml topical lotion (18 sources) Lincosamide Antibacterial Start: 09-28-2021 Clindamycin Phosphate (CLEOCIN T) 1 % lotion APPLY LOTION TOPICALLY TO AFFECTED AREA TWICE DAILY 14 DAYS 09/28/2021 Active Start: 09-28-2021 End: 07-18-2023 take 1 capsule by mouth three times daily clindamycin (CLEOCIN) 300 mg capsule Take 300 mg by mouth three times daily. 0 09/28/2021 07/18/2023 Discontinued (Course of therapy completed) Start: 11-05-2019 End: 11-16-2019 take 1 capsule by mouth three times daily clindamycin (CLEOCIN) 300 MG capsule Take 300 mg by mouth 3 times daily. FOR 10 DAYS 0 11/05/2019 11/16/2019 Discontinued Comment on above: Take 300 mg by mouth three times daily. APPLY LOTION TOPICAL LY TO AFFECTED AREA TWICE DAILY 14 DAYS clotrimazole 10 mg/ml topical cream (1 source) Azole Antifungal Start: 05-29-20 End: 06-12-20 clotrimazole (LOTRIMIN) 1 % cream Indications: Rash Apply to affected area two times a day for 14 days. 30 g 05/29/2024 06/12/2024 Active FLUoxetine 10 mg oral capsule (1 source) Serotonin Reuptake Inhibitor Start: 01-05-20 22 take 1 capsule by mouth once daily FLUoxetine (PROZAC) 10 MG capsule Indications: Anxiety and depression Take 1 capsule by mouth daily. 30 capsule 1 01/04/2022 Active hydrOXYzine hydrochloride 10 mg oral tablet (1 source) Antihistamine Start: 01-05-20 22 take 1 tablet by mouth three times daily as needed for anxiety hydrOXYzine (ATARAX) 10 MG tablet Indications: Anxiety and depression Take 1 tablet by mouth 3 times daily as needed for Anxiety. 90 tablet 1 01/04/2022 Active lamoTRIgine 25 mg oral tablet (3 sources) Mood Stabilizer, Anti-epileptic Agent lamoTRIgine (LAMICTAL) 25 mg tablet Take 25 mg by mouth. Active mupirocin 0.02 mg/mg topical ointment (2 sources) RNA Synthetase Inhibitor Antibacterial Start: 08-26-20 mupirocin (BACTROBAN) 2 % ointment APPLY A SMALL AMOUNT TO THE AFFECTED AREA 3 TIMES DAILY. 08/26/2024 Active 24 hr nicotine 0.292 mg/hr transdermal system (2 sources) Cholinergic Nicotinic Agonist Start: 11-30-19 nicotine (NICODERM CQ) 7 MG/24HR Indications: Encounter for smoking cessation counseling Place 1 patch onto the skin every 24 hours. 28 patch 2 11/30/2019 Active Start: 11-16-2019 apply 1 dose transde rmal route every twenty-four hours nicotine (NICODERM CQ) 21 MG/24HR Indications: Encounter for smoking cessation counseling Place 1 patch onto the skin every 24 hours. 28 patch 2 11/16/2019 Active Completed/Discontinued Medications Medication Drug Class(es) Dates Sig (Normalized) Sig (Original) acetaminophen 325 mg oral tablet (9 sources) End: 05-29-2024 take 2 tablets by mouth every six hours as needed acetaminophen (TYLENOL) 325 mg tablet Take 650 mg by mouth every 6 hours as needed. 05/29/2024 Discontinued Comment on above: Take 650 mg by mouth every 6 hours as needed. [id number] 200 actuat albuterol 0.09 mg/actuat metered dose inhaler (8 sources) beta2-Adrenergic Agonist Start: 09-09-2022 End: 05-29-2024 take 2 puff(s) by inhalation every four hours as needed albuterol HFA (PROAIR HFA) 90 mcg/actuation inhaler Indications: URI, acute Inhale 2 Puffs as instructed every 4 hours as needed. 18 g 09/09/2022 05/29/2024 Discontinued Comment on above: Inhale 2 Puffs as in structed every 4 hours as needed. ARIPiprazole 2 mg oral tablet (6 sources) Atypical Antipsychotic Start: 09-03-2022 End: 11-28-2023 take 1 tablet by mouth once daily ARIPiprazole (ABILIFY) 2 mg tablet Take 2 mg by mouth once daily. 0 09/03/2022 11/28/2023 Discontinued (Course of therapy completed) Comment on above: Take 2 mg by mouth o nce daily. brexpiprazole 1 mg oral tablet (7 sources) Atypical Antipsychotic Start: 09-09-2021 End: 11-28-2023 take 1 tablet by mouth once daily REXULTI 1 mg tablet Take 1 mg by mouth once daily. 0 09/09/2021 11/28/2023 Discontinued (Course of therapy completed) Comment on above: Take 1 mg by mouth o nce daily. 12 hr cetirizine hydrochloride 5 mg / pseudoephedrine hydrochloride 120 mg extended release oral tablet (7 sources) alpha-Adrenergic Agonist, Histamine-1 Receptor Antagonist Start: 11-30-2022 End: 05-29-2024 take 1 tablet by mouth twice daily cetirizine-pseudoe phedrine (ZYRTEC-D) 5-120 mg per tablet Take 1 tablet by mouth twice daily. 10 tablet 11/30/2022 05/29/2024 Discontinued Comment on above: Take 1 tablet by mckay th twice daily. 21 day ethinyl estradiol 0.304888 mg/hr / etonogestrel 0.005 mg/hr vaginal system (9 sources) Progestin, Estrogen Start: 03-13-2017 End: 05-29-2024 Etonogestrel-Ethin yl Estradiol (NUVARING) 0.12-0.015 mg/24 hr vaginal ring Use 1 Each vaginally as directed. Use as directed. 1 Each 14 03/13/2017 05/29/2024 Discontinued Comment on above: Use 1 Each vaginally as directed. Use as directed. fluconazole 150 mg oral tablet (1 source) Azole Antifungal Start: 01-17-2023 End: 01-17-2023 fluconazole (DIFLUCAN) 150 mg tablet Take 1 tablet by mouth one time only for 1 dose. Repeat in 3 days as needed. 2 tablet 0 01/17/2023 01/17/2023 Comment on above: Take 1 tablet by mckay th one time only for 1 dose. Repeat in 3 days as needed. fluticasone propionate 0.05 mg/actuat metered dose nasal spray (7 sources) Corticosteroid Start: 11-30-2022 End: 05-29-2024 take 2 spray(s) by mouth once daily fluticasone (FLONASE) 50 mcg/actuation nasal spray Use 2 Sprays in each nostril once daily. Rinse mouth after use. 1 Each 11/30/2022 05/29/2024 Discontinued Comment on above: Use 2 Sprays in each nostril once daily. Rinse mouth after use. metFORMIN hydrochloride 500 mg oral tablet (8 sources) Biguanide Start: 08-28-2022 End: 05-29-2024 take 1 tablet by mouth once daily metFORMIN (GLUCOPHAGE) 500 mg tablet Take 500 mg by mouth once daily. 08/28/2022 05/29/2024 Discontinued Comment on above: Take 500 mg by mouth once daily. VIT/IRON FUM/FOLIC AC ( VITAMIN ORAL) (9 sources) End: 05-29-2024 VIT/IRON FUM/FOLIC AC ( VITAMIN ORAL) Take by mouth. 05/29/2024 Discontinued VIT/IRO N FUM/FOLIC AC ( VITAMIN ORAL) Take by mouth. 0 Active Comment on above: Take by mouth. topiramate 100 mg oral tablet (20 sources) Start: 11-12-2021 End: 05-29-2024 take 0.5 tablet by mouth once daily, then take 1 tablet by mouth once daily topiramate (TOPAMAX) 100 mg tablet TAKE 1/2 (ONE-HALF) TABLET BY MOUTH DAILY FOR 7 DAYS, THEN INCREASE TO 1 TABLET DAILY. 11/12/2021 05/29/2024 Discontinued Start: 02-23-2019 End: 05-29-2024 take 1 tablet by mouth once daily at bedtime topiramate (TOPAMAX) 25 mg tablet Take 25 mg by mouth daily at bedtime. 1 02/23/2019 05/29/2024 Discontinued take 1 tablet by mckay th once daily topiramate (TOPAMAX) 50 MG tablet Take 50 mg by mouth daily. 0 Active Comment on above: Take 25 mg by mouth daily at bedtime. TAKE 1/2 (ONE-HALF) TABLET BY MOUTH DAILY FOR 7 DAYS, THEN INCREASE TO 1 TABLET DAILY. triamcinolone acetonide 1 mg/ml topical cream (9 sources) Corticosteroid Start: 03-10-2019 End: 05-29-2024 triamcinolone acetonide (KENALOG) 0.1 % cream Indications: Rash Apply 1 application to affected area three times daily. Apply sparingly to area for rash/itching. 80 g 03/10/2019 05/29/2024 Discontinued Comment on above: Apply 1 application to affected area three times daily. Apply sparingly to area for rash/itching. Problems Active Problems Problem Classification Problem Date Documented Date Episodic/Chronic Diabetes mellitus without complication (1 source) Hyperglycemia; Translations: [Hyperglycemia] Episodic Fever of unknown origin (2 sources) Fever; Translations: [Fever, unspecified] Episodic Immunizations and screening for infectious disease (2 sources) Contact with or exposure to other viral diseases; Translations: [Exposure to COVID-19 virus] Onset: 01-27-2025 Episodic Inflammatory diseases of female pelvic organs (1 source) Acute vaginitis; Translations: [Acute vaginitis] Episodic Malaise and fatigue (2 sources) Fatigue; Translations: [Other fatigue] Episodic Nonmalignant breast conditions (1 source) Breast tenderness; Translations: [Breast tenderness in female] Episodic Other complications of (11 sources) Obesity; Translations: [Obesity complicating , unspecified trimester] Onset: 02-07-2017 02-07-2017 Chronic Other congenital anomalies (2 sources) Spina bifida occulta; Translations: [Spina bifida occulta] Onset: 03-01-2025 Chronic Other ear and sense organ disorders (1 source) Bilateral hearing loss; Translations: [Bilateral hearing loss, unspecified hearing loss type] Chronic Other ear and sense organ disorders (1 source) Unspecified acute noninfective otitis externa, bilateral; Translations: [Unspecified acute noninfective otitis externa, bilateral] Onset: 03-15-2025 Episodic Other liver diseases (1 source) Elevated liver enzymes level; Translations: [Abnormal levels of other serum enzymes] Episodic Other nutritional; endocrine; and metabolic disorders (2 sources) Body mass index 30+ - obesity; Translations: [BMI 31.0-31.9,adult] Chronic Other screening for suspected conditions (not mental disorders or infectious disease) (3 sources) test negative; Translations: [Inconclusive mammogram] Onset: 12-31-2023 Episodic Other skin disorders (1 source) Eruption; Translations: [Rash and other nonspecific skin eruption] 05-29-2024 Episodic Other skin disorders (1 source) Localized swelling, mass and lump, unspecified; Translations: [Localized swelling, mass and lump, unspecified] Onset: 01-18-2025 Episodic Other upper respiratory disease (1 source) Pain in throat; Translations: [Pain in throat] Episodic Other upper respiratory disease (1 source) Lesion of nose; Translations: [Other specified disorders of nose and nasal sinuses] 08-30-2024 Episodic Other upper respiratory infections (9 sources) Sore throat symptom; Translations: [Acute pharyngitis, unspecified] Onset: 11-28-2023 Episodic Residual codes; unclassified (1 source) Chronic pain; Translations: [Chronic left shoulder pain] Chronic Residual codes; unclassified (1 source) Generalized aches and pains; Translations: [Pain, unspecified] Episodic Residual codes; unclassified (1 source) Refused procedure - parent's wish; Translations: [Procedure and treatment not carried out because of patient's decision for unspecified reasons] Onset: 03-23-2025 Episodic Residual codes; unclassified (1 source) Procedure and treatment not carried out because of patient's decision for unspecified reasons; Translations: [Procedure and treatment not carried out because of patient's decision for unspecified reasons] Onset: 03-23-2025 Episodic Residual codes; unclassified (2 sources) Other amnesia; Translations: [Other amnesia] Onset: 08-25-2024 Episodic Spondylosis; intervertebral disc disorders; other back problems (3 sources) Cervicalgia; Translations: [Radiculopathy, lumbar region] Onset: 02-22-2025 Episodic Substance-related disorders (2 sources) Nicotine dependence, cigarettes, uncomplicated; Translations: [Smoker] Onset: 05-27-2017 Chronic Unclassified (3 sources) Patient encounter status; Translations: [Encounter for well woman exam with routine gynecological exam] Unclassified (1 source) Breast finding ; Translations: [Dense breast tissue] Unclassified (1 source) Dense breasts, unspecified; Translations: [Dense breasts, unspecified] Onset: 12-31-2023 Unclassified (2 sources) Low back pain, unspecified; Translations: [Low back pain, unspecified] Onset: 03-01-2025 Past or Other Problems Problem Classification Problem Date Documented Date Episodic/Chronic Cardiac dysrhythmias (1 source) Palpitations; Translations: [Palpitations] Onset: 11-29-2024 Episodic Diabetes or abnormal glucose tolerance complicating ; childbirth; or the puerperium (11 sources) with abnormal glucose tolerance test; Translations: [Abnormal glucose complicating ] Onset: 03-10-2017 03-10-2017 Episodic Other aftercare (1 source) Other termite helper (current) drug therapy; Translations: [OTH COST CONTROLLER CURRENT DR] Onset: 05-27-2017 Episodic Other female genital disorders (2 sources) Other specified noninflammatory disorders of vulva and perineum; Translations: [OTH SPEC NONINFLAMM D/O] Onset: 05-27-2017 Episodic Other and delivery including normal (11 sources) Normal ; Translations: [Encounter for supervision of normal , unspecified, first trimester] Onset: 02-07-2017 02-07-2017 Episodic Residual codes; unclassified (1 source) Transient alteration of awareness; Translations: [Transient alteration of awareness] Onset: 09-08-2024 Episodic Skin and subcutaneous tissue infections (2 sources) Cutaneous abscess of groin; Translations: [Cellulitis of groin] Onset: 05-27-2017 Episodic Results Test Name Value Interpretation Reference Range Facility XR CHEST 1 VIEWon 03-23-2025 XR CHEST 1 VIEW ORIGINAL EXAMINATION: ONE XRAY VIEW OF THE CHEST 03/23/2025 6:22 pm COMPARISON: None. HISTORY: ORDERING SYSTEM PROVIDED HISTORY: Reason for Exam: pain FINDINGS: Cardiomediastinal silhouette is normal in size. Costophrenic angles are sharp. No radiographic pneumothorax. No focal consolidation. Osseous structures unremarkable. IMPRESSION: No focal consolidation. Interpreted by: Harjeet Schmitz Preliminary Report By: Harjeet Schmitz Electronically signed By Harjeet Schmitz Dictated Date: 03/23/2025 6:31:22 PM Prelim Date: 03/23/2025 6:32:10 PM Sign Date: 03/23/2025 6:32:10 PM Ordering Provider: PRACHI Kauffman [facility] Urgent Care Visit Reporton 0 03-18-2025 Urgent Care Visit Report [facility] [address], [address] [place], [place] [address] OFFICE VISIT Date of Service: 03/18/25 MR#: [id number] Acct: [id number] Name: PENADK JONEL Rep #: [id number] 00 : 1990 Provider: WILLIE Marroquin Age/Sex: 34/F Location: [facility] Status: Signed Intake Vital Signs 03/15/25 15:16 03/18/25 12:21 Height 5 ft 5 in Weight: 142 lb 2 oz BMI 23.6 BP 100/60 100/60 Blood Pressure Location Lt brachial Position Sitting Sitting Respiration 18 14 Pulse 83 87 Pulse Source Monitor Temp 98.3 F 98.5 F Temp Source Oral Oral Pulse Oximetry (%) 100 98 Oxygen Delivery Method room air room air Intake Visit Reasons: EAR PAIN /SINUS CONGESTION/ CHEST CONGESTION Accompanied by: Self Allergies fluoxetine (From Prozac) Allergy (Verified 03/18/25 12:20) Angioedema linaclotide (From Linzess) Adverse Reaction (Intermediate, Verified 03/18/25 12:20) Upset Stomach codeine Adverse Reaction (Verified 03/18/25 12:20) Other Medications ???Medication ???Instructions ???Recorded ???Confirmed ???Type lumateperone 10.5 mg capsule 10.5 mg PO DAILY 04/30/24 03/18/25 History (Caplyta) sennosides 8.6 mg tablet (Natural 8.6 mg PO .QOD 08/05/24 03/18/25 History Senna Laxative) methocarbamol 500 mg tablet 500 mg PO TID PRN pain/spasms #30 02/22/25 03/18/25 Rx tabs [id number] ocort 3.5 4 drp otic (ear) TID 10 days #10 m L 03/15/25 03/18/25 Rx mg-10,000 unit/mL-1 % ear drops,susp amoxicillin 875 mg-potassium 1 tab PO Q12H 10 days #20 tabs 03/18/25 Rx clavulanate 125 mg tablet ipratropium bromide 21 mcg (0.03 2 spray intranasal BID-TID PRN 03/18/25 Rx %) nasal spray postnasal drainage #30 mL Nurse's Note: Patient was here on and was told she has a ear infection. Patient states yesterday it moved to her sinus. Patient is having sinus pressure,drainage and congestion with chest congestion. Patient states this started yesterday. [facility] Medical History (Updated 03/18/25 @ 12:45 by Vinay Eugene PA, PA) Acute otitis externa of both ears Acute pain of both ears Bipolar disorder, unspecified Borderline personality disorder Adjustment disorder DANA (generalized anxiety disorder) Persistent depressive disorder Nicotine dependence, cigarettes, uncomplicated Surgical History No pertinent past surgical history Family History Mother Anxiety Arthritis Autoimmune disease Depressed Mental disorder Psychiatric care Rheumatoid arthritis Father Asthma Hypertension High cholesterol Grandfather Skin cancer Grandmother Diabetes Dementia Social History household members: children housing: house current occupational status: disabled 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 Patient was here several days ago and placed on eardrops for outer ear infection however patient states that the symptoms have improved yet the sinus congestion/pressure and pain is worsened. She denies fever, chills or sweats. No hemoptysis, shortness of breath or difficulty breathing. No loss of taste or smell. No other associated symptoms or alleviating/aggravating factors. ROS Const Constitutional: No other (As above) Exam Const General: cooperative and healthy appearing [facility] Head: normal to inspection Ears: hearing grossly normal bilaterally, TM's normal bilaterally and EAC's normal Nose: nasal discharge purulent Face and sinus: sinus tenderness frontal and maxillary Mouth: oral mucosae normal Throat: abnormal tonsil bilaterally erythema and hypertrophy 1+ and postnasal drainage Resp Effort Inspection: normal respiratory effort Auscultation: Bilateral: Clear to Auscultation Cardio Rate: regular rate Rhythm: regular rhythm Neuro General: patient alert Psych Appearance: grossly normal Mental Status: mental status grossly normal Coding Level of Care Code Off vis,est,level 3 Diagnoses Acute sinusitis J01.90 Assessment and Plan Assessment and Plan (1) Acute sinusitis: Status: Acute Plan: Augmentin and Atrovent as prescribed today. Encouraged to get plenty of rest, drink lots of clear liquids, and use Tylenol or Ibuprofen (more content not included)... Normal [facility] Urgent Care Visit Reporton 0 03-15-2025 Urgent Care Visit Report [facility] [address], [address] [place] [address] OFFICE VISIT Date of Service: 03/15/25 MR#: [id number] Acct: [id number] Name: DK PENA Rep #: [id number] : 1990 Provider: WILLIE Fan Age/Sex: 34/F Location: [facility] Status: Signed Intake Vital Signs 02/22/25 09:04 03/15/25 15:16 Height 5 ft 5 in 5 ft 5 in Weight: 142 lb 4 oz 142 lb 2 oz BMI 23.6 23.6 BP 100/60 Blood Pressure Location Lt brachial Position Sitting Respiration 18 Pulse 83 Pulse Source Monitor Temp 98.3 F Temp Source Oral Pulse Oximetry (%) 100 Oxygen Delivery Method room air Intake Visit Reasons: BILAT EAR PAIN Chief Complaint: Bilateral Ear Pain 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 Is patient in pain?: Yes Allergies fluoxetine (From Prozac) Allergy (Verified 03/15/25 15:17) Angioedema linaclotide (From Linzess) Adverse Reaction (Intermediate, Verified 03/15/25 15:17) Upset Stomach codeine Adverse Reaction (Verified 03/15/25 15:17) Other Medications ???Medication ???Instructions ???Recorded ???Confirmed ???Type lumateperone 10.5 mg capsule 10.5 mg PO DAILY 04/30/24 03/15/25 History (Caplyta) sennosides 8.6 mg tablet (Natural 8.6 mg PO .QOD 08/05/24 03/15/25 History Senna Laxative) methocarbamol 500 mg tablet 500 mg PO TID PRN pain/spasms #30 02/22/25 03/15/25 Rx tabs diolktuo-ccxnewvdw-wlpa ocort 3.5 4 drp otic (ear) TID 10 days #10 m L 03/15/25 03/15/25 Rx mg-10,000 unit/mL-1 % ear drops,susp Nurse's Note: Developed bilateral ear pain two days ago. Feels like something is crawling around in left ear. Had been swimming in a pool last Friday. Tried putting alcohol in ears. [facility] Medical History (Updated 03/15/25 @ 15:32 by Jose TAPIA, PA) Acute otitis externa of both ears Acute pain of both ears Bipolar disorder, unspecified Borderline personality disorder Adjustment disorder DANA (generalized anxiety disorder) Persistent depressive disorder Nicotine dependence, cigarettes, uncomplicated Surgical History No pertinent past surgical history Family History Mother Anxiety Arthritis Autoimmune disease Depressed Mental disorder Psychiatric care Rheumatoid arthritis Father Asthma Hypertension High cholesterol Grandfather Skin cancer Grandmother Diabetes Dementia Social History household members: children housing: house current occupational status: disabled 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 No complaints of fever, chills, sweats, lightheadedness/dizzine ss, nausea/vomiting, muffled hearing appreciated though tenderness to palpation external ears/EACs upon questioning. Patient states she has been extra meticulous in trying to keep her ears clean as she feels the sensation of something moving in her left ear which has her worried. No avty-hov-rgrpjvk medications have been taken to assist. PMH NC. No other associated symptoms and no other alleviating/aggravating factors. ROS Const Constitutional: No other (As above) Exam Const General: cooperative, healthy appearing and no acute distress Orientation: alert and awake HENPR Head: normal to inspection Ears: hearing grossly normal bilaterally, external ears normal, TM's normal bilaterally and EAC abnormal erythema bilaterally (L>R), edema bilaterally (L>R) and EAC tenderness bilaterally (L>R) Nose: external nose normal Neck Neck: normal visual inspection, no lymphadenopathy, no meningeal signs and supple Resp Effort Inspection: normal respiratory effort and able to speak in complete sentences Cardio Rate: regular rate Pulses: radial pulses present Skin General: no rashes or lesions noted Neuro General: patient alert and patient awake Cognition: normal cognition Speech: speech normal Extrem General: normal to inspection Psych Appearance: grossly normal Mental Status: mental status grossly normal Mood: congruent mood Affect: normal affect Speech and Movement: speech and movement normal Attitude: cooperative Coding Level of Care Code Off vis,est,level 3 Diagnoses (more content not included)... Normal [facility] Inital Evaluation (1) - PTon 02-23-2025 Inital Evaluation (1) - PT [facility] Physical Therapy [facility] [address] [place] [address] / REHABILITATION SERVICES INITIAL EVALUATION MR#: [id number] Acct: [id number] Name: DK PENA Rep #: [id number] : 1990 34 From: Suman García DPT, OCS, CSCS Referring Dr.: WILLIE Fan Status: REG R CR Insurance: [facility] MEDICAID Patient's Visit Information Visit Information Visit Information: DK PENA is a 34 year old F referred to Physical Therapy by WILLIE Fan with a diagnosis of LBP. Date of Evaluation: 02/23/25 Physical Therapist: Suman García DPT, OCS, CSCS Visit Plan Frequency: 2-3x /Week Duration: 4-6 Weeks Plan: 3x/week for 3-6 weeks for: IE HEP: PPU every two hours, avoid sitting, sit with upright posture in firm chair only, avoid FW bending. treat with ext bias lumb ar ROM and progression of forces, PA mobs to lumbar and thoracic spine, postural correction and body mechanics, core strength to HEP, return to [employer] and jogging, TENS and MH as needed. Subjective Subjective: symptoms are back pain, chronically and issues since last year and found a little spina bifida last year. After running sat in car and got electric shocks. Went about daily activities and now whole back hurts. 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 Sitting makes it worse. Walking is better. been a month since she felt really good. Training for a 5k but did not do it due to back pain. Sleep is waking up sometimes with pain. Cleaning house hurts and doing laundry makes it worse. 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 Hiking /running: not doing. One mile hurt the other day. Gym at [employer] but not in a week. Saw ortho yesterday adn wants MRI. Pain LBP: Pain Intensity (Out of 10): 4 Pain Intensity Range: 4 and 8 Comment: into upper spine, tightnes in thoracic area. Objective Objective: reflexes 2/3 patella and achilles B Sensation wNL to gross light touch B LE strength 4/5 in LE with pain L hip extension in LB in prone otherwise not painful - SLR, - slump. LB AROM ext max limited and central pain, flexiona dn SB min limited. gait is normal today and [employer] chair and bed are I but painful rolling and sit to sstand in LB. Repeated PPU increases ext ROM and no change to pain, PDM core strength 3+ abs and 3+ ext. Balance/Special Test Scores Oswestry Low Back Score: 22 Goals Goal 1:: full lumbar exteension without pain Goal Time Frame: 4-6 Weeks Goal 2:: lap layer without waking at night due to pain Goal Time Frame: 4-6 Weeks Goal 3:: Pain 0/10 at rest and 2/10 at worst adn 90% better/manageablee Goal Time Frame: 4-6 Weeks Goal 4:: I appropriate HEP to limit future problems Goal Time Frame: 4-6 Weeks Goal 5:: oswestry score 5 or better Goal Time Frame: 4-6 Weeks Goal 6:: return to gym adn jogging without pain Goal Time Frame: 4-6 Weeks Rehabilitation Potential Physical Therapy Diagnosis: limited motion and comfort in Lb movements effecting daily function. Rehabilitation Potential: Good Anticipated Interventions Patient/Client Instruction: Educate patient on: Condition and Plan of Care For the Purpose of:: To decrease pain, To increase ROM, To improve nutrient delivery to tissue, To improve muscle performance and motor function, To increase tolerance to activity/condition/posi tion and To improve ability of physical actions for home/community/work/lei sure Therapeutic Exercise to Include: Strength training, Postural training, Flexibilty training, Relaxation training, Passive ROM and Active ROM For the Purpose of:: To decrease pain, To increase ROM, To improve nutrient delivery to tissue, To improve muscle performance and motor function and To increase tolerance to activity/condition/posi tion Manual Therapy Techniques to Include: Mobilization, Passive ROM and Soft tissue mobilization For the Purpose of:: To decrease pain, To increase ROM, To improve nutrient delivery to tissue, To improve muscle performance and motor function and To increase tolerance to ac tivity/condition/positi on TENS: Yes Thermo therapy (hot pack): Yes For the Purpose of:: To decrease pain, To increase ROM and To improve nutrient delivery to tissue Text: Thank you for the opportunity to evaluate your patient. For Medicare and Medicare HMO plans, please review the plan of care and approve it. It will need to be FAXED BACK to us at [phone] for Medicare purposes. For Medicare only, by signing this I certify the plan of care. Please let me know if there are questions or concerns regarding this plan of care. Physician Signature: Date: 02/23/25 0249 CC: (more content not included)... Normal [facility] Cerv Spine 4 or 5 Viewson Cerv Spine 4 or 5 Views [facility] Imaging Services [address] [place], [place] [id number] Cerv Spine 4 or 5 Views MR#: [id number] Acct: [id number] Name: DK PENA Rep #: [id number] : 1990 F 34 From: Dipesh Guzmán MD PCP: Dr. Jaci Michelle MD Status: DEP AMB Study: Cerv Spine 4 or 5 Views Date of Exam: 02/22/25 Exam# [id number] Ordering Dr: Betty Hernandez PROCEDURE: CERV SPINE 4 OR 5 VIEWS 02/22/2025 REASON FOR EXAM: ONGOING NECK PAIN TECHNIQUE: Frontal, lateral, flexion and extension views of the cervical spine COMPARISON: February 21, 2022 CT FINDINGS: There is loss of the lordosis. Vertebral body height and alignment are maintained. There is loss of disc height which is most severe at C5-6 and C6-7. There is no significant instability or spondylolisthesis identified in the flexion and extension views. Soft tissues are unremarkable. RAD/Cerv Spine 4 or 5 Views IMPRESSION: There is loss of disc height which is most severe at C5-6 and C6-7. There is no significant instability or spondylolisthesis identified in the flexion and extension views. Reading Location: [facility] CC: WILLIE Sims; Dr. Jaci Michelle MD Tubing Machine Tender: Signed Normal [facility] L/S Spine Bending Flex/[place] 02-22-2025 L/S Spine Bending Flex/Ext [facility] Imaging Services [address] [place] [address] L/S Spine Bending Flex/Ext MR#: [id number] Acct: [id number] Name: DK PENA Rep #: [id number] : 1990 F 34 From: Nicolás Henning MD PCP: Dr. Jaci Michelle MD Status: DEP AMB Study: L/S Spine Bending Flex/Ext Date of Exam: 02/22 Exam# [id number] Ordering Dr: Betty Hernandez EXAM: XR Lumbosacral Spine Flexion/Extension Only, 2 or 3 Views CLINICAL INDICATION: PAIN TECHNIQUE: Lateral flexion/extension views of the lumbar spine and sacrum. COMPARISON: No relevant prior studies available. FINDINGS: VERTEBRAE: Mild facet arthropathy of L4-S1. Normal sagittal alignment. No acute fracture or significant dynamic instability. SACRUM/COCCYX: Unremarkable as visualized. No acute fracture. DISC SPACES: No acute findings. No significant narrowing. SOFT TISSUES: Unremarkable. RAD/L/S Spine Bending Flex/Ext IMPRESSION: No acute fracture or significant dynamic instability. Reading Location: [facility] CC: WILLIE Sims; Dr. Jaci Michelle MD Tubing Machine Tender: Signed Normal [facility] Orthopedic Visit Reporton Orthopedic Visit Report [facility] [address] [place] [address] [place] [address] OFFICE VISIT Date of Service: 02/22/25 MR#: [id number] Acct: [id number] Name: DK PENA Rep #: [id number] : 1990 Provider: WILLIE Sims Age/Sex: 34/F Location: [facility] Status: Signed with Addenda ADDENDUM by WILLIE Sims on 03/30/25 at 1010 Assessment and Plan Assessment and Plan (1) Lumbar radiculopathy: Status: Acute Orders: Orders L/S Spine Bending Flex/Ext 02/22/25 M54.50 - Low back pain, unspecified Cerv Spine 4 or 5 Views 02/22/25 M54.2 - Cervicalgia Spine Lumbar (Routine) 02/22/25 M54.16 - Radiculopathy, lumbar region Medications: New methocarbamol 500 mg PO TID PRN 30 tabs 0RF pain/spasms Plan Ativan 1 mg x 2 sent for the patient for the MRI. OARRS reviewed. 03/30/25 1010 Date Betty Hernandez cc: Dr. Jaci Michelle MD * Signed Intake Vital Signs 02/16/25 10:35 02/22/25 09:04 Height 5 ft 5 in 5 ft 5 in Weight: 142 lb 4 oz BMI 23.6 Intake Visit Reasons: LUMBAR SPINE Chief Complaint: whole back Accompanied by: Self Is patient in pain?: Yes Pain scale (1-10): 8 Allergies fluoxetine (From Prozac) Allergy (Verified 02/22/25 09:07) Angioedema linaclotide (From Linzess) Adverse Reaction (Intermediate, Verified 02/22/25 09:07) Upset Stomach codeine Adverse Reaction (Verified 02/22/25 09:07) Other Medications ???Medication ???Instructions ???Recorded ???Confirmed ???Type lumateperone 10.5 mg capsule 10.5 mg PO DAILY 04/30/24 02/22/25 History (Caplyta) sennosides 8.6 mg tablet (Natural 8.6 mg PO .QOD 08/05/24 02/22/25 History Senna Laxative) methocarbamol 500 mg tablet 500 mg PO TID PRN pain/spasms #30 02/22/25 02/22/25 Rx tabs Have you fallen in the past year?: No PFSH Medical History Bipolar disorder, unspecified Borderline personality disorder Adjustment disorder DANA (generalized anxiety disorder) Persistent depressive disorder Nicotine dependence, cigarettes, uncomplicated Surgical History No pertinent past surgical history Family History Mother Anxiety Arthritis Autoimmune disease Depressed Mental disorder Psychiatric care Rheumatoid arthritis Father Asthma Hypertension High cholesterol Grandfather Skin cancer Grandmother Diabetes Dementia Social History household members: children housing: house 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 Part of today???s visit was documented by Donald Park MA, acting as scribe. DK PENA is a 34 year old F here today for back pain. Patient is here for back pain. The pain is mainly in the lower back. The pain is like an achy pain in the lower back that goes up to the whole back. No injuries or falls. She was moving a dress in December 2023 when she felt pain. It feels like there is a sharp claw grabbing her back. Occasionally she will get an electric feeling, the first time she noticed it was about 2 weeks ago when she was running. This has been going on since last summer. When she runs or exercises that pain starts. The pain is there all the time in the lower back. The pain started getting severe about a month ago.Patient denies any surgeries on her back in the past. Running makes the pain worse. Working out intensely makes the pain worse. Sometimes if she sits too long the pain gets worse as well. Pain midline, pain down the lateral thigh, pain down both legs left is worse. Pain in her left calf. Patient denies any injections in the back. She states that she is going to start physical therapy tomorrow for her back. [facility]. Patient denies any diabetes, or blood thinners. No heart or lung issues. No abdominal surgeries. Patient vapes currently, but denies any drug use. Patient states that she has numbness in both hips. She states that her hands have increased weakness in her hands and fingers. Says that this is equal on both sides however she d (more content not included)... Normal [facility] Lumbar Spine 2 or 3 Viewson 02-16-2025 Lumbar Spine 2 or 3 Views [facility] Imaging Services [address] [place], [place] [address] Lumbar Spine 2 or 3 Views MR#: [id number] Acct: [id number] Name: DK PENA Rep #: [id number] : 1990 F 34 From: Leo jimenez MD PCP: Dr. Jaci Michelle MD Status: REG CLI Study: Lumbar Spine 2 or 3 Views Date of Exam: Exam# [id number] Ordering Dr: Jose Hobbs PROCEDURE: LUMBAR SPINE 2 OR 3 VIEWS 02/16/2025 REASON FOR EXAM: Low back pain. TECHNIQUE: 2 view(s) of the lumbar spine COMPARISON: Comparison is made with prior study dated June 18, 2024. FINDINGS: Vertebrae: Unremarkable Discs: Minimal anterior spondylosis and disc space narrowing at the L2-L3 level. Mild disc space narrowing at the L5-S1 level. There has been no change. Alignment: Normal Other: RAD/Lumbar Spine 2 or 3 Views IMPRESSION: Mild degenerative changes at the L2-L3 and L5-S1 levels. Stable examination. Reading Location: [id number] CC: Dr. Jaci Michelle MD; WILLIE Fan Tubing Machine Tender: Signed Normal [facility] Urgent Care Visit Reporton 0 02-16-2025 Urgent Care Visit Report [facility] [address], [address] [place] [address] OFFICE VISIT Date of Service: 02/16/25 MR#: [id number] Acct: [id number] Name: DK PENA Rep #: [id number] : 1990 Provider: WILLIE Fan Age/Sex: 34/F Location: [facility] Status: Signed Intake Vital Signs 01/27/25 08:36 02/16/25 10:35 Height 5 ft 5 in 5 ft 5 in Weight: 141 lb BMI 23.4 BP 110/76 98/64 Blood Pressure Location Lt brachial Position Sitting Sitting Respiration 14 Pulse 76 60 Pulse Source Monitor Temp 98.4 F 98.3 F Temp Source Temporal Oral Pulse Oximetry (%) 99 97 Oxygen Delivery Method room air room air Intake Visit Reasons: Back pain Accompanied by: Self Is patient in pain?: Yes Pain scale (1-10): 8 Allergies fluoxetine (From Prozac) Allergy (Verified 02/16/25 10:58) Angioedema linaclotide (From Linzess) Adverse Reaction (Intermediate, Verified 02/16/25 10:58) Upset Stomach codeine Adverse Reaction (Verified 02/16/25 10:58) Other Medications ???Medication ???Instructions ???Recorded ???Confirmed ???Type lumateperone 10.5 mg capsule 10.5 mg PO DAILY 04/30/24 02/16/25 History (Caplyta) sennosides 8.6 mg tablet (Natural 8.6 mg PO .QOD 08/05/24 01/27/25 History Senna Laxative) Nurse's Note: Patient has back pain that has been going on for 2 weeks. Patient states that its her whole back. Patient states its on the spine and the area around it. Patient states that she got a electric shock in her back about 2 weeks ago. Patient was running while it happen. Patient has used a heating pad and that has helped the pain. 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 Patient notes symptoms began as she was training for a 5K race this coming up with symptoms persisting ever since. She notes no caudal/ radicular complaints upon questioning. Patient notes having had symptoms very similar in June 2024 where she was evaluated at [place] where informed she had spina bifida occulta per radiologist interpretation of radiographs then. She is currently taking no nwsy-pbs-bzjprav products to assist and is refusing all prescription medications upon offering today. Low back pain is aggravated with any range of motion or with running as previously described, alleviated minimally with ibuprofen/acetaminophen as needed. No complaints of chest pain or shortness of breath or abdominal discomfort. No other associated symptoms and no other alleviating/aggravating factors. ROS Const Constitutional: No other (As above) Exam Const General: cooperative, healthy appearing and no acute distress Nutritional Appearance: average body habitus Orientation: alert and awake Eyes General: appearance normal, both eyes and all related structures Chest Chest palpation inspection: normal inspection of the chest Resp Effort Inspection: normal respiratory effort and able to speak in complete sentences Cardio Rate: regular rate Pulses: radial pulses present GI Inspection: normal to inspection Musc Thoracic/Lumbar Spine: thoracic and lumbar spine normal to inspection, thoraco-lumbar ROM normal (Unguarded with position change from sit to stand to sit and ambulation), paraspinal tenderness bilaterally, no thoracic spinal tenderness and no lumbar spinal tenderness Skin General: no rashes or lesions noted Neuro General: patient alert, patient awake and gait no (more content not included)... Normal [facility] PAP IG HPV HR APTIMAon 01-31 ADEQ Comment Normal . [facility] Comment on above: Order Comment: Speci men Comment: [id number] Comment: No. of containers..01 ThinPrep Vial Result Comment: Sati sfactory for evaluation. Endocervical and/or squamous metaplastic cells (endocervical component) are present. Performed By: #### L [id number] ####[facility] [address] [place], [address] COMM . Normal . [facility] Comment on above: Order Comment: Speci men Comment: [id number] Comment: No. of containers..01 ThinPrep Vial Performed By: #### L [id number] ####[facility] [address] [place], [address] COMMENT Comment Normal . [facility] Comment on above: Order Comment: Speci men Comment: [id number] Comment: No. of containers..01 ThinPrep Vial Result Comment: This liquid based ThinPrep(R) pap test was screened with the use of an image guided system. Performed By: #### L [id number] ####[facility] [address] [place], [place], [id number] DIAG Comment Normal . [facility] Comment on above: Order Comment: Speci men Comment: [id number] Comment: No. of containers..01 ThinPrep Vial Result Comment: NEGA TIVE FOR INTRAEPITHELIAL LESION OR MALIGNANCY. Performed By: #### L [id number] ####[facility] [address] [place], [place], [id number] HPV APTIMA, HR Negative Normal Negative [facility] Comment on above: Order Comment: Speci men Comment: [id number] Comment: No. of containers..01 ThinPrep Vial Result Comment: This nucleic acid amplification test detects fourteen high- risk HPV types (16,18,31,33,35,39,45,51,52,56,58,59,66,68) without differentiation. Performed at: [address] [id number] Car Sealer: Gila Montoya MD, Phone: [phone] Performed at: =[address] [id number] Car Sealer: Gila Montoya MD, Phone: [phone] Performed By: #### L [id number] ####[facility] [address] [place], [place], [address] PAPSMR Comment Normal . [facility] Comment on above: Order Comment: Speci men Comment: [id number] Comment: No. of containers..01 ThinPrep Vial Result Comment: The Pap smear is a screening test designed to aid in the detection of premalignant and malignant conditions of the uterine cervix. It is not a diagnostic procedure and should not be used as the sole means of detecting cervical cancer. Both false-positive and false-negative reports do occur. Performed By: #### L 7400.0377 ####[facility] [address] [place], [address] PERFORM Comment Normal . [facility] Comment on above: Order Comment: Speci men Comment: [id number] Comment: No. of containers..01 ThinPrep Vial Result Comment: Adan Law, Engineer System Administrator (ASCP) Performed By: #### L 7400.0377 ####[facility] [address] [place], [address] Genital Culture Comprehensiv ben 01-28-2025 VAC Reason for Exam: screening for std Normal vaginal christie isolated. No yeast, Gardnerella, Neisseria or beta-hemolytic Streptococcus isolated. Normal [facility] Comment on above: Performed By: #### M 8200.3000, M8200.2203, M100.3200, M100.1999 ####[facility] [address] [place], [address] Gram Stainon 01-27-2025 GS Reason for Exam: screening for std Gram Stain 4+ Gram positive rods No Gram negative diplococci Rare White Blood Cells Score = 0 Interpretation: 0-3 Normal, 4-6 Intermediate, 7-10 Positive BV Normal [facility] Comment on above: Performed By: #### M 8200.3000, M8200.2203, M100.3200, M100.1999 ####[facility] [address] [place], [address] M8200.2203on 01-27-2025 M8200.2203 Pending Chlamydia Trachomatis PCR NEGATIVE for Chlamydia trachomatis N. gonorrhoeae PCR Negative for N. gonorrhoeae Normal [facility] Comment on above: Performed By: #### M 8200.3000, M8200.2203, M100.3200, M100.1999 ####[facility] [address] [place], [address] M8200.3000on 01-27-2025 M8200.3000 Pending Trichomonas Vag DNA PCR Negative for Trichomonas vaginalis Normal [facility] Comment on above: Performed By: #### M 8200.3000, M8200.2203, M100.3200, M100.2000 ####[facility] [address] [place], [address] Internal Medicine Office Vis iton 01-26-2025 Internal Medicine Office Visit [facility] [address] [place] [address] [place] [address] OFFICE VISIT Date of Service: 01/27/25 MR#: [id number] Acct: [id number] Name: DK PENA Rep #: [id number] : 1990 Provider: Dr. Jaci moreno MD Age/Sex: 34/F Location: [facility] Status: Signed Intake Vital Signs 12/30/24 15:13 01/27/25 08:36 Height 5 ft 5 in 5 ft 5 in Weight: 141 lb BMI 23.4 BP 110/76 Blood Pressure Location Lt brachial Position Sitting Respiration 14 Pulse 76 Pulse Source Monitor Temp 98.4 F Temp Source Temporal Pulse Oximetry (%) 99 Oxygen Delivery Method room air Intake Visit Reasons: STD testing 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 Is patient in pain?: No Allergies fluoxetine (From Prozac) Allergy (Verified 12/30/24 15:03) Angioedema linaclotide (From Linzess) Adverse Reaction (Intermediate, Verified 12/30/24 15:12) Upset Stomach codeine Adverse Reaction (Verified 12/30/24 15:03) Other Medications ???Medication ???Instructions ???Recorded ???Confirmed ???Type lumateperone 10.5 mg capsule 10.5 mg PO DAILY 04/30/24 01/27/25 History (Caplyta) sennosides 8.6 mg tablet (Natural 8.6 mg PO .QOD 08/05/24 01/27/25 History Senna Laxative) Nurse's Note: Wants to get a full std panel. States current partner tested positive for hpv. Pt states she also has had 1 additional sex partner and has not been std tested since a previous visit w/ Dr. Michelle. Pt denies sexual relations w/ men and only has sexual contact w/ females. Pt denies any change in vaginal discharge, spots, smells or any other sx's. She wants to be on the safe side. pt does not currently have and OBGYN and states [facility] is scheduled too far out and is not currently on a waitlist for another OBGYN's office. Thinks she is in a 5ish year timeframe for pap and has never had abnormal paps in the past. States she was not told she was in contact w/ other stds besides HPV [facility] Medical History Bipolar disorder, unspecified Borderline personality disorder Adjustment disorder DANA (generalized anxiety disorder) Persistent depressive disorder Nicotine dependence, cigarettes, uncomplicated Surgical History No pertinent past surgical history Family History Mother Anxiety Arthritis Autoimmune disease Depressed Mental disorder Psychiatric care Rheumatoid arthritis Father Asthma Hypertension High cholesterol Grandfather Skin cancer Grandmother Diabetes Dementia Social History household members: children housing: house current occupational status: disabled 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 She would like to have some STD screening. She reports that she and her girlfriend broke up for some time. During that time, her girlfriend tested positive for HPV. The patient reports she is sexually active with just females. She did have another partner while broken up with her girlfriend and doesn't know their sexual history. They do not use any type of barrier protection. She reports any toys that are used are cleaned well. She believes she had a pap smear a few years ago, which was normal, but thinks she may be due for another one. She doesn't currently have a shading painter. She denies any symptoms such as itching, sores or discharge. The patient doesn't want HIV or hepatitis screening, but would like other STDs checked. ROS Const Constitutional: No fever(s), weakness or weight change Resp Respiratory: No shortness of breath Cardio Cardiology: No chest pain at rest or lightheadedness Gastro GI: No abdominal pain, nausea/dyspepsia or vomiting Genitourinary-Female: No difficulty urinating, genital lesions or abnormal periods Musc Musculoskeletal: No numbness or tingling Neuro Neurology: No dizziness, weakness, numbness, tingling or fainting Endo Endocrine: No weight change Exam Const General: cooperative, healthy appearing, no acute distress, well developed, not diaphoretic and not ill appearing Nutritional Appearance: well nourished Orientation: alert and oriented x3 Limitations: mental status not altered HENMT Head: normal to inspection, normocephalic and atraumatic (more content not included)... Normal [facility] Ext Non Vasc Limited/Soft Ti sson 01-12-2025 Ext Non Vasc Limited/Soft Tiss [facility] Imaging Services [address] [place] [address] Ext Non Vasc Limited/Soft Tiss MR#: [id number] Acct: [id number] Name: DK PENA Rep #: [id number] : 1990 F 34 From: Arden Barajas i, MD PCP: Care Physician,No Primary Status: REG CLI Study: Ext Non Vasc Limited/Soft Tiss Date of Exam: 0 01/12/25 Exam# [id number] Ordering Dr: Edmond Arrieta VALUE ADVISOR-C PROCEDURE: EXT NON VASC LIMITED/SOFT TISS 01/12/2025 REASON FOR EXAM: PALP LUMP GROIN TECHNIQUE: Ultrasound targeted to the palpable abnormality at the . COMPARISON: None. FINDINGS: Limited sonogram of the right groin was performed in the area of palpable abnormality. This demonstrates 0.9 x 1.5 by 0.4 cm lymph node. A 2nd lymph node is identified which measures up to 1.3 by 1 by 0.3 cm. These lymph nodes appear morphologically within normal limits. Although the significance is difficult to ascertain. Recommend clinical correlation and further workup as clinically indicated. US/Ext Non Vasc Limited/Soft Tiss IMPRESSION: As above. Reading Location: [facility] CC: NIR Arrieta; No Primary Care Physician Tubing Machine Tender: Signed Normal [facility] Other Unlisted US Procedureo n 01-12-2025 Other Unlisted US Procedure [facility] Imaging Services [address] [place] [address] Other Unlisted US Procedure MR#: [id number] Acct: [id number] Name: DK PENA Rep #: [id number] : 1990 F 34 From: Arden Barajas i, MD PCP: Care Physician,No Primary Status: REG CLI Study: Other Unlisted US Procedure Date of Exam: 06/30 Exam# [id number] Ordering Dr: Jaci Michelle MD EXAM: Questionable palpable abnormality. CLINICAL HISTORY: Mobile nodules on patient's back and right inguinal region. COMPARISON: None. TECHNIQUE: Targeted sonogram of the right lower back was performed in the area of palpable abnormality. FINDINGS: No abnormal solid or cystic structure is seen within the area of palpable abnormality. US/Other Unlisted US Procedure IMPRESSION: No abnormal solid or cystic structure is seen within the area of palpable abnormality. Patient may benefit from cross-sectional imaging at this time. Reading Location: [id number] CC: Dr. Jaci Michelle MD; No Primary Care Physician Tubing Machine Tender: Signed Normal [facility] Internal Medicine Office Vis itoabebe 12-29-2024 Internal Medicine Office Visit [facility] [address] [place] [address] [place] [address] OFFICE VISIT Date of Service: 12/30/24 MR#: [id number] Acct: [id number] Name: DK PENA Rep #: [id number] : 1990 Provider: Dr. Jaci moreno MD Age/Sex: 34/F Location: [facility] Status: Signed Intake Vital Signs 11/16/24 09:07 12/30/24 15:13 Height 5 ft 5 in 5 ft 5 in Weight: 139 lb BMI 23.1 BP 102/58 L Blood Pressure Location Lt brachial Position Sitting Respiration 16 Pulse 105 H Pulse Source Monitor Temp 97.9 F Temp Source Temporal Pulse Oximetry (%) 99 Oxygen Delivery Method room air Intake Visit Reasons: lump on back for almost 1 yr/ getting bigger 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 Is patient in pain?: No Allergies fluoxetine (From Prozac) Allergy (Verified 12/30/24 15:03) Angioedema nickel Allergy (Verified 12/30/24 15:03) Rash linaclotide (From Linzess) Adverse Reaction (Intermediate, Verified 12/30/24 15:12) Upset Stomach codeine Adverse Reaction (Verified 12/30/24 15:03) Other Medications ???Medication ???Instructions ???Recorded ???Confirmed ???Type lumateperone 10.5 mg capsule 10.5 mg PO DAILY 04/30/24 12/30/24 History (Caplyta) sennosides 8.6 mg tablet (Natural 8.6 mg PO .QOD 08/05/24 12/30/24 History Senna Laxative) Nurse's Note: States she was seen for R back lump previously an xray was done and nothing was visualized. States she noticed it had grown a month ago. States she doesn't think the xray even was done on the lump. It does hurt sometimes. States she does have a tendancy for cysts, but it is concerning to her. States months ago she started w/ neck and groin swollen lymph nodes. She states it is not getting any better and is concerned as it is just not 1 area of lymph nodes it's all over.States they are not painful. She has not been sick in over a year. Does have HS and thought maybe that';s what it was but it doesn't seem like it. 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 She is not due for any routine blood work. She believes she is up to date on her pap smear. She previously declined a flu shot. She does smoke e-cigarettes and previously declined the desire to quit. She doesn't need any refills. The patient has a long history of mental health struggles including depression, anxiety and bipolar. She states she had problems since she was a teenager. She has tried and failed multiple medications in the past. Since she was last seen, she started IOP therapy. She is taking her medication as prescribed without problems and reports that it does continue to help. She states she is graduating on Friday and is overall doing better. She reports her palpitations have been doing fine. She believes it was medication related. She reports her memory changes have been stable. She reports she has a problem with disassociation and thinks that may be related to her struggles. At her last office visit, she was started on linzess for constipation. She reports that it didn't seem to help, and just made her feel bloated, so she stopped taking it. She is interested in seeing GI to see what other options she may have. The patient has concerns about a lump on her back. She reports certain exercises make it painful. She reports she feels it has gotten larger over the last year, which is when she first noticed it. She reports she has also been having trouble with enlarged lymph nodes. She reports she feels that she has had them enlarged in both her posterior auricular and right ing (more content not included)... Normal [facility] Internal Medicine Office Vis watson 11-15-2024 Internal Medicine Office Visit [facility] [address] [place] [address] [place] [address] OFFICE VISIT Date of Service: 11/16/24 MR#: [id number] Acct: [id number] Name: DK PENA Rep #: [id number] : 1990 Provider: Dr. Jaci moreno MD Age/Sex: 34/F Location: [facility] Status: Signed Intake Vital Signs 08/05/24 08:53 08/20/24 07:33 11/13/24 16:36 11/16/24 09:07 Height 5 ft 5 in 5 ft 5 in 5 ft 5 in 5 ft 5 in Weight: 140 lb 2 oz BMI 23.3 BP 116/76 Position Sitting Respiration 14 Pulse 68 Pulse Source Monitor Temp 97.2 F L Temp Source Temporal Intake Visit Reasons: EST CARE-[facility]MOND PATIENT Chief Complaint: Est Care 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 Accompanied by: Self Is patient in pain?: No Allergies fluoxetine (From Prozac) Allergy (Verified 11/16/24 09:04) Angioedema nickel Allergy (Verified 11/16/24 09:04) Rash codeine Adverse Reaction (Verified 11/16/24 09:04) Other Medications ???Medication ???Instructions ???Recorded ???Confirmed ???Type lumateperone 10.5 mg capsule 10.5 mg PO DAILY 04/30/24 11/16/24 History (Caplyta) sennosides 8.6 mg tablet (Natural 8.6 mg PO .QOD 08/05/24 11/16/24 History Senna Laxative) linaclotide 72 mcg capsule 72 mcg PO QAM #30 caps 11/16/24 Rx (Linzess) oxcarbazepine 150 mg tablet 150 mg PO BID 11/16/24 11/16/24 Hi story (Trileptal) Patient : No Have you fallen in the past year?: No Nurse's Note: constipation wondering about medication as she has new insurance [facility] Medical History (Updated 11/16/24 @ 09:[address] Jaci Michelle MD) Borderline personality disorder Adjustment disorder DANA (generalized anxiety disorder) Persistent depressive disorder Nicotine dependence, cigarettes, uncomplicated Surgical History (Updated 11/16/24 @ 09:[address] Jaci Michelle MD) No pertinent past surgical history Family History Mother Anxiety Arthritis Autoimmune disease Depressed Mental disorder Psychiatric care Rheumatoid arthritis Father Asthma Hypertension High cholesterol Grandfather Skin cancer Grandmother Diabetes Dementia Social History (Updated 11/16/24 @ 09:[address] 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 She was seeing Edmond Arrieta DNP and last saw her in April. She is not due for any routine blood work. She believes she is up to date on her pap smear. She doesn't want a flu shot. She does smoke e- cigarettes and doesn't want to quit at this time. She doesn't need any refills. She reports she is eating healthy and reports she hasn't been very active during the winter. She likes to run in the summer. The patient has a long history of mental health struggles including depression, anxiety and bipolar. She states she had problems since she was a teenager. She has tried and failed multiple medications in the past. She reports she was just hospitalized at [facility] in [place] due to a mixed manic/depressive episode. She reports her medications were adjusted and that was helpful. She was discharged home on Friday. She does take her medication as prescribed without problems. She follows closely with psychiatry (Brandon Slaughter NP) and reports that she is currently seeing her every month. She denies any current concerns nor any thoughts of suicide. She has an appointment with behavioural health today to start IOP therapy. She reports she has done this in the past and found it beneficial. The patient was seen in the ED on 11/13 with complaints of palpitations. Work up was negative and she was discharged home. She reports that she attributes it to too much caffeine that day. She states she is feeling better. She has been following with neurology for memory changes. She reports she has had problems since she was on lamictal which was stopped during her recent hospital stay. She thinks she has noticed a slight difference since being off of it this past week. An EEG was completed and normal. She has an MRI ordered which she still needs to do. She has a follow up with them next week. The patient has had problems with constipation for just over a year, when she started the caplyta. She reports she is only able to move her bowels when she takes laxatives. She repo (more content not included)... Normal [facility] 12 Lead EKGon 11-13-2024 12 Lead EKG [facility] Cardiovascular Services [address] [place] [address] 12 Lead EKG 11/13/24 1644 MR#: [id number] Acct: [id number] Name: DK PENA Rep #: [id number] : 1990 34 From: Dieter López MD Attending Dr: Status: DEP ER Ordering Dr: Travis Lara MD Date: 11/13/24 Location: ED Sex: F C Admitted: Test Reason : PALPITATIONS Blood Pressure : */* mmHG Vent. Rate : 78 BPM Atrial Rate : 78 BPM P-R Int : 160 ms QRS Dur : 96 ms QT Int : 356 ms P-R-T Axes : 70 80 27 degrees QTcB Int : 405 ms Normal sinus rhythm Possible Left atrial enlargement Borderline ECG Confirmed by DIETER LÓPEZ MD ([id number]), editor house organ STEVAN HINTON ([id number]) on 11/15/2024 6:32:37 AM Referred By: TIFFANY/AUBRIE Confirmed By: DIETER LÓPEZ MD 11/15/24 0632 Date Dieter López MD CC: Dr. Travis Lara MD; No Primary Care Physician Signed Normal [facility] Basic Metabolic Profile (BMP )on 11-13-2024 BUN/CRE 15.2 RATIO Normal 10-20 [facility] Comment on above: Performed By: #### L 500.2500 #### [facility] [address] [place], [address] CA,Total 9.1 mg/dL Normal 8.5-10.1 [facility] Comment on above: Performed By: #### L 500.2500 #### [facility] [address] [place], [address] Chloride [Moles/Vol] 106 mmol/L Normal 98-107 [facility] Comment on above: Performed By: #### L 500.2500 #### [facility] [address] [place], [address] CO2 [Moles/Vol] 30.0 mmol/L Normal 21.0-32.0 [facility] Comment on above: Performed By: #### L 500.2500 #### [facility] [address] [place], [address] Creatinine [Mass/Vol] 0.72 mg/dL Normal 0.55-1.02 [facility] Comment on above: Result Comment: The validity of the calculated GFR GFRAA in patients over 70 years has not been determined. Clinical correlation is essential. Performed By: #### L 500.2500 #### [facility] [address] [place], [address] ECRCL 100.00 ml/min Normal [facility] Comment on above: Performed By: #### L 500.2500 #### [facility] [address] [place], [address] EST GFR - AA 119 mL/min Normal >60 [facility] Comment on above: Result Comment: Afri can [place] GFR Calc Performed By: #### L 500.2500 #### [facility] [address] [place], [address] GAP 5 Normal 5-15 [facility] Comment on above: Performed By: #### L 500.2500 #### [facility] [address] [place], [address] GFR/1.73 sq M.predicted among non-blacks MDRD (S/P/Bld) [Vol rate/Area] 99 mL/min/{1.73_m2} Normal >60 [facility] Comment on above: Result Comment: Non- GFR Calc Performed By: #### L 500.2500 #### [facility] [address] [place], [address] Glucose [Mass/Vol] 100 mg/dL Normal 74-106 [facility] Comment on above: Result Comment: Fast ing Glucose result from 100 to 125 mg/dL suggests IMPAIRED HOMEOSTASIS per A.D.A. criteria. Performed By: #### L 500.2500 #### [facility] [address] [place], [address] Potassium [Moles/Vol] 3.8 mmol/L Normal 3.5-5.1 [facility] Comment on above: Performed By: #### L 500.2500 #### [facility] [address] [place], [address] Sodium [Moles/Vol] 141 mmol/L Normal 136-145 [facility] Comment on above: Performed By: #### L 500.2500 #### [facility] [address] [place], [address] Urea nitrogen [Mass/Vol] 11 mg/dL Normal 7-18 [facility] Comment on above: Performed By: #### L 500.2500 #### [facility] [address] [place], [address] Emergency Department Summary on 11-13-2024 Emergency Department Summary [facility] Medical Records Department [address] [place] [address] Emergency Department Summary 11/13/24 MR#: [id number] Acct: [id number] Name: DK PENA Rep #: [id number] : 1990 34 From: Travis Lara MD PCP: Care Physician,No Primary Status:DEP ER Location: ED HPI History of Present Illness Chief Complaint: Palpitations Detail of Chief Complaint: Palpitation that occurred at rest after eating Informant: patient Onset/Context/Timing Onset: Today and Hours Context: Sudden Onset Timing: Intermittent and Lasts (1 hour) Quality: Heartbeat with skipping Location: Chest Current Severity: Gone Maximum Severity: Moderate Worsened by: Nothing Relieved by: Not applicable Associated Symptoms Associated Symptoms: None Narrative Narrative: Patient is a 34-year-old woman. She vapes. She has history of anxiety. She presents because of skipped beats. This lasted approximately an hour. She had no associated symptoms. She did had no orthostatic symptoms. She is never experienced this before. She denies drug use. She did start a new medication today, Trileptal. Recent Illness/Hospitalization : No PFSH PFSH Medical History Borderline personality disorder Adjustment disorder DANA (generalized anxiety disorder) Persistent depressive disorder Nicotine dependence, cigarettes, uncomplicated Home Medications ???Medication ???Instructions ???Recorded ???Last Taken ???Type lamotrigine 25 mg tablet 25 mg PO QDAY 04/30/24 Unknown His tory lumateperone 10.5 mg capsule 10.5 mg PO DAILY 04/30/24 Unknown History (Caplyta) sennosides 8.6 mg tablet (Natural 8.6 mg PO .QOD 08/05/24 Unknown H istory Senna Laxative) Allergy/AdvReac Type Severity Reaction Status Date / Time fluoxetine (From Prozac) Allergy Angioedema Verified 11/13/24 16:38 nickel Allergy Rash Verified 11/13/24 16:38 codeine AdvReac Other Verified 11/13/24 16:38 Family History Mother Anxiety Arthritis Autoimmune disease Depressed Mental disorder Psychiatric care Rheumatoid arthritis Father Asthma Hypertension High cholesterol Grandfather Skin cancer Grandmother Diabetes Dementia Social History household members: children housing: house current occupational status: unemployed Smoking Status: Current some day smoker tobacco type: e-cigarettes alcohol intake: never substance use type: does not use what type of physical activity do you participate in: walking and running frequency: 3-4 times per week seatbelt use: always do you feel safe at home: Yes ROS ROS ED Constitutional Constitutional ED: Denies chills, fever(s), subjective or sweats Eyes Eyes: Denies blurry vision or change in vision ENT ENT ED: Denies rhinorrhea or sore throat Cardiovascular Cardiovascular: Reports palpitations; Denies chest pain or racing heartbeat Respiratory/Chest Respiratory/Chest: Denies cough, dyspnea or dyspnea on exertion Gastrointestinal Gastrointestinal: Denies abdominal pain, diarrhea, melena, nausea or vomiting Neurologic Neurologic: Denies headache(s) or paresthesias Psychiatric Psychiatric: Reports anxiety EXAM Physical Exam Const Vital Signs: 11/13/24 16:36 11/13/24 18:04 11/13/24 18:36 Temperature 96.5 F L Temperature Source Temporal Pulse Rate 88 77 Respiratory Rate 18 15 Respiratory Effort Normal Non-Labored Blood Pressure 119/81 H 115/76 Blood Pressure Mean 93 89 Pulse Ox 99 100 Oxygen Delivery Method Room Air Room Air 11/13/24 18:36 Temperature 98.0 F Temperature Source Pulse Rate 88 Respiratory Rate 18 Respiratory Effort Blood Pressure 135/90 H Blood Pressure Mean 105 Pulse Ox 97 Oxygen Delivery Method Positive well nourished and well developed General Appearance ED: well developed; Negative for cyanotic, diaphoretic or pallor HEENT Reports moist mucous membranes HEENT Narrative: Head is atraumatic normocephalic. Ears normal. Nares patent. Eyes PERRL and EOMs intact bilaterally General Eye ED: Negative for pale conjunctiva or scleral icterus Neck no lymphadenopathy, supple and no JVD Chest Wall inspection of chest normal and palpation of chest normal Resp normal respiratory effort and clear to auscultation bilaterally Cardio regular rate, regular rhythm, S1 normal heart sound, S2 normal heart sound and no murmurs GI normal to inspection, nondistended, normoactive bowel sounds, non-tender, non-distended and no masses; Negative for hepatosplenomegaly Extremity normal to inspection Neuro oriented x3 and CN's II-XII intact bilaterally Sensorium / Orientation: alert (more content not included)... Normal [facility] 09-03-2024 [facility] Telephone ([facility]) DK PENA ([id number]) 1990 F Date Time Provider Department 09/03/24 MARY COMER [facility] During your visit today, we recorded the following information about you: Mary Comer APRN.[facility] 09/03/2024 7:03 AM Signed Please advise patient the wound culture did not grow any bacteria. She may continue to use prescribed medication. Follow instructions given by provider at visit, f/u with PCP if symptoms persist or worsen. Mary Comer APRN.Vicky Gilmore MA 09/03/2024 8:52 AM Signed Left VM instructing patient to return call to receive results. ANGIE Martin Sherrie, RN 09/03/2024 8:55 AM Signed Patient returned call and given provider's message below and patient verbalized understanding. Katharine Govea RN Allergies As of Date: 09/03/2024 Noted Allergy Reaction CODEINE 11/15/2019 9 - Itching FLUOXETINE 11/20/2022 16 - Unknown NICKEL 02/07/2017 2 - Rash Date Reviewed: 08/30/2024 Reviewed by: Elo Lyon MA - Fully Assessed Reason for Visit: Results [95] Prescriptions as of 09/03/2024 - mupirocin (BACTROBAN) 2 % ointment APPLY A SMALL AMOUNT TO THE AFFECTED AREA 3 TIMES DAILY. - cephALEXin (KEFLEX) 500 mg capsule Take 1 capsule by mouth four times daily for 5 days. - lamoTRIgine (LAMICTAL) 25 mg tablet Take 25 mg by mouth. - CAPLYTA 10.5 mg capsule - Clindamycin Phosphate (CLEOCIN T) 1 % lotion APPLY LOTION TOPICALLY TO AFFECTED AREA TWICE DAILY 14 DAYS Problem List As Of Date 09/03/2024 Noted Resolved Obesity in [O99.210] 02/07/2017 Encounter for supervision of normal i*02/07/2017 Abnormal O'Henao glucose challenge test, ant*03/10/2017 Encounter Status:Closed by ROSALEE GOVEA on 09/03/[address] [facility] Bacteria Wnd Culton 08-30-20 24 Bacteria identified Cx Nom (Wound) CULTURE, WOUND: No growth GRAM STAIN: No organisms seen No Polymorphonuclear Leukocytes Normal [facility] Comment on above: Performed By: #### 6 [id number] #### [facility] CLIA [id number] [address] [place] [address] CNOVon 08-30-2024 CNOV Office Visit (UCWSTR ) DK PENA ([id number]) 1990 F Date Time Provider Department 08/30/24 1:30 PM ARTEMIO LUNA WS During your visit today, we recorded the following information about you: Temperature Pulse Respiration Blood pressure 98 degrees 100/minute 16/minute 94/60 Weight 62.7 kg Artemio Luna PA 08/30/2024 1:20 PM Signed This note was created using [employer]. Subjective Dkfrancisco javier Pena is a 34 year old female. HPI 34-year-old female presents for sore throat, fever, sore in the nose. Patient states she has had a sore throat for the past 5 days. She has had a low-grade fever the past day or 2. Tmax around 99.6 ?F. She states that she was seen by ENT last follow-up on a neck mass, and they found a sore in her nose and told her it was staph per the patient. She was started on mupirocin ointment. Patient has been using the ointment for about 5 days. She states it is not draining any discharge, but the sore is still very painful and red. She states that she does have a runny nose. No epistaxis. No difficulty breathing or swallowing. No cough. No other complaint. PAST MEDICAL HISTORY Diagnosis Date Anxiety Depression depression Rh negative state in antepartum period PAST SURGICAL HISTORY Procedure Laterality Date EXTRACTION, ERUPTED TOOTH OR EXPOSED ROOT (ELEVATION AND/OR FORCEPS REMOVAL) ALLERGIES Codeine, Fluoxetine, and Nickel MEDICATIONS mupirocin (BACTROBAN) 2 % ointment APPLY A SMALL AMOUNT TO THE AFFECTED AREA 3 TIMES DAILY. lamoTRIgine (LAMICTAL) 25 mg tablet Take 25 mg by mouth. CAPLYTA 10.5 mg capsule Clindamycin Phosphate (CLEOCIN T) 1 % lotion APPLY LOTION TOPICALLY TO AFFECTED AREA TWICE DAILY 14 DAYS cephALEXin (KEFLEX) 500 mg capsule Take 1 capsule by mouth four times daily for 5 days. No family history on file. Social History Tobacco Use Smoking status: Former Types: Cigarettes Smokeless tobacco: Current Tobacco comments: vape Substance Use Topics Alcohol use: No Drug use: No Review of Systems Constitutional: Positive for fever. Negative for chills. HENT: Positive for rhinorrhea and sore throat. Negative for congestion and ear pain. Respiratory: Negative for cough and shortness of breath. Cardiovascular: Negative for chest pain. Gastrointestinal: Negative for diarrhea and vomiting. Objective BP 94/60 Pulse 100 Temp 36.7 ?C (98 ?F) Resp 16 Wt 62.7 kg (138 lb 3.7 oz) LMP 11/28/2023 (Exact Date) SpO2 98% BMI 23.00 kg/m? Physical Exam Vitals and nursing note reviewed. Constitutional: General: She is not in acute distress. Appearance: Normal appearance. She is not toxic-appearing. HENT: Right Ear: Tympanic membrane and ear canal normal. Left Ear: Tympanic membrane normal. Nose: Nasal tenderness present. Comments: Erythematous raised lesion just inside left nare on the septum. Mild yellow crusting. Tender to touch. No drainage or fluctuance. Mouth/Throat: Mouth: Mucous membranes are moist. Pharynx: Uvula midline. Posterior oropharyngeal erythema present. Tonsils: 1+ on the right. 1+ on the left. Eyes: Conjunctiva/sclera: Conjunctivae normal. Neck: Comments: + Left-sided neck mass near the submental region. Being followed by ENT Cardiovascular: Rate and Rhythm: Normal rate and regular rhythm. Pulmonary: Effort: Pulmonary effort is normal. Breath sounds: Normal breath sounds. Skin: General: Skin is warm and dry. Neurological: Mental Status: She is alert. Assessment and Plan ASSESSMENT/PLAN: 1. Sore throat - ICD9: 462, ICD10: J02.9 (primary diagnosis) - suspect viral - Group A strep molecular testing negative - Discussed supportive care treatment with fluids, rest and analgesia. - The patient may also use warm salt water gargles, throat lozenges and/or OTC throat spray as needed. - STREP A MOLECULAR (POC) 2. Sore in nose - ICD9: 478.19, ICD10: J34.89 - Will begin treatment with as per antibiotic as written, see orders. Rx for Keflex. Already on mupirocin ointment. - Supportive care with plenty of fluids, rest, and analgesia prn. - ABSCESS AND WOUND CULTURE WITH GRAM STAIN 3. Fever, unspecified fever cause - ICD9: 780.60, ICD10: R50.9 -Possible viral versus from sore in nose. Treating as above.- -Tylenol/Motrin as needed Diagnosis and treatment plan were discussed and questions were answered to the patient's satisfaction. Pt acknowledged understanding of concepts and follow up plan. Specific signs and symptoms that would indicate the need for higher level of care were discussed in detail warranting prompt ER evaluation. WILLIE Dai Allergies As of Date: 08/30/2024 Noted Allergy Reaction CODEINE 11/15/2019 9 - Itching FLUOXETINE 11/20/2022 16 - Unknown NICKEL 02/07/2017 2 - Rash Date Reviewed: 08/30/2024 Reviewed (more content not included)... Normal [facility] STREP A MOLECULAR (POC)on Procedural Control Valid [facility] Strep A (POCT) Negative Negative [facility] CBC W/Diff, Automatedon 10-3 Absolute Lymph 2.02 X10 3/uL Normal 0.83-4.51 [facility] Comment on above: Performed By: #### L 501.9520, L501.32582, L503.6550, L500.4100, L506.1000, L503.6030, L503.0105, L100.0100, L500.4050, L501.9310, L506.0250 #### [facility] [address] [place], [address] Absolute Neut 2.4 X10 3/uL Normal 2.0-7.7 [facility] Comment on above: Performed By: #### L 501.9520, L501.08716, L503.6550, L500.4100, L506.1000, L503.6030, L503.0105, L100.0100, L500.4050, L501.9310, L506.0250 #### [facility] [address] [place], [address] Basophils/100 WBC (Bld) 1.0 % Normal 0-1 [facility] Comment on above: Performed By: #### L 501.9520, L501.38949, L503.6550, L500.4100, L506.1000, L503.6030, L503.0105, L100.0100, L500.4050, L501.9310, L506.0250 #### [facility] [address] [place], [address] Eosinophils/100 WBC (Bld) 4.0 % Normal 0-5 [facility] Comment on above: Performed By: #### L 501.9520, L501.48303, L503.6550, L500.4100, L506.1000, L503.6030, L503.0105, L100.0100, L500.4050, L501.9310, L506.0250 #### [facility] [address] [place], [address] Erythrocyte distribution width (RBC) [Ratio] 12.0 % Normal 11.6-14.6 [facility] Comment on above: Performed By: #### L 501.9520, L501.69171, L503.6550, L500.4100, L506.1000, L503.6030, L503.0105, L100.0100, L500.4050, L501.9310, L506.0250 #### [facility] [address] [place], [address] (228) Hematocrit (Bld) [Volume fraction] 40.3 % Normal 37-47 [facility] Comment on above: Performed By: #### L 501.9520, L501.79188, L503.6550, L500.4100, L506.1000, L503.6030, L503.0105, L100.0100, L500.4050, L501.9310, L506.0250 #### [facility] [address] [place], [address] Hemoglobin (Bld) [Mass/Vol] 12.7 g/dL Normal 12.0-15.0 [facility] Comment on above: Performed By: #### L 501.9520, L501.57947, L503.6550, L500.4100, L506.1000, L503.6030, L503.0105, L100.0100, L500.4050, L501.9310, L506.0250 #### [facility] [address] [place], [address] IG% 0.200 Normal 0.0-0.9 [facility] Comment on above: Result Comment: IG% - Immature Granulocytes (promyelocytes, myelocytes and metamyelocytes) > 1% indicates that a LEFT SHIFT is Present. Performed By: #### L 501.9520, L501.14344, L503.6550, L500.4100, L506.1000, L503.6030, L503.0105, L100.0100, L500.4050, L501.9310, L506.0250 #### [facility] [address] [place], [address] Lymphocytes/100 WBC (Bld) 40.1 % Normal 19-41 [facility] Comment on above: Performed By: #### L 501.9520, L501.75954, L503.6550, L500.4100, L506.1000, L503.6030, L503.0105, L100.0100, L500.4050, L501.9310, L506.0250 #### [facility] [address] [facility] [place], [address] MCH (RBC) [Entitic mass] 29.6 pg Normal 27.0-32.0 [facility] Comment on above: Performed By: #### L 501.9520, L501.36729, L503.6550, L500.4100, L506.1000, L503.6030, L503.0105, L100.0100, L500.4050, L501.9310, L506.0250 #### [facility] [address] [place], [address] MCHC (RBC) [Mass/Vol] 31.5 g/dL Low 32-36 [facility] Comment on above: Performed By: #### L 501.9520, L501.34492, L503.6550, L500.4100, L506.1000, L503.6030, L503.0105, L100.0100, L500.4050, L501.9310, L506.0250 #### [facility] [address] [place], [address] MCV (RBC) [Entitic vol] 93.9 fL Normal 81-99 [facility] Comment on above: Performed By: #### L 501.9520, L501.85472, L503.6550, L500.4100, L506.1000, L503.6030, L503.0105, L100.0100, L500.4050, L501.9310, L506.0250 #### [facility] [address] [place], [place], [phone] (457) Monocytes/100 WBC (Bld) 7.1 % Normal 0-10 [facility] Comment on above: Performed By: #### L 501.9520, L501.01139, L503.6550, L500.4100, L506.1000, L503.6030, L503.0105, L100.0100, L500.4050, L501.9310, L506.0250 #### [facility] [address] [place], [place], [phone] (044) Neutrophils/100 WBC (Bld) 47.6 % Normal 47-70 [facility] Comment on above: Performed By: #### L 501.9520, L501.59139, L503.6550, L500.4100, L506.1000, L503.6030, L503.0105, L100.0100, L500.4050, L501.9310, L506.0250 #### [facility] [address] [place], [address] (416) Nucleated RBC (Bld) [#/Vol] 0 10*3/uL Normal 0-5 [facility] Comment on above: Performed By: #### L 501.9520, L501.99723, L503.6550, L500.4100, L506.1000, L503.6030, L503.0105, L100.0100, L500.4050, L501.9310, L506.0250 #### [facility] [address] [place], [address] (580) Platelet mean volume (Bld) [Entitic vol] 8.9 fL Normal 6.2-12.0 [facility] Comment on above: Performed By: #### L 501.9520, L501.19589, L503.6550, L500.4100, L506.1000, L503.6030, L503.0105, L100.0100, L500.4050, L501.9310, L506.0250 #### [facility] [address] [place], [address] Platelets (Bld) [#/Vol] 289 10*3/uL Normal 150-450 [facility] Comment on above: Performed By: #### L 501.9520, L501.79403, L503.6550, L500.4100, L506.1000, L503.6030, L503.0105, L100.0100, L500.4050, L501.9310, L506.0250 #### [facility] [address] [place], [address] RBC (Bld) [#/Vol] 4.29 10*6/uL Normal 4.2-5.4 [facility] Comment on above: Performed By: #### L 501.9520, L501.18433, L503.6550, L500.4100, L506.1000, L503.6030, L503.0105, L100.0100, L500.4050, L501.9310, L506.0250 #### [facility] [address] [place], [address] RDW SD 41.6 fl Normal 35.1-43.9 [facility] Comment on above: Performed By: #### L 501.9520, L501.02960, L503.6550, L500.4100, L506.1000, L503.6030, L503.0105, L100.0100, L500.4050, L501.9310, L506.0250 #### [facility] [address] [place], [place], [id number] WBC (Bld) [#/Vol] 5.0 10*3/uL Normal 4.4-11.0 [facility] Comment on above: Performed By: #### L 501.9520, L501.58303, L503.6550, L500.4100, L506.1000, L503.6030, L503.0105, L100.0100, L500.4050, L501.9310, L506.0250 #### [facility] [address] [place], [address] Comprehensive Metabolic Prof ilon 08-05-2024 Albumin [Mass/Vol] 3.8 g/dL Normal 3.2-5.0 [facility] Comment on above: Order Comment: N Performed By: #### L 501.9520, L501.58338, L503.6550, L500.4100, L506.1000, L503.6030, L503.0105, L100.0100, L500.4050, L501.9310, L506.0250 ####[facility] [address] [place], [place], [phone] Albumin/Globulin [Mass ratio] 1.2 {ratio} Normal 0.9-2.4 [facility] Comment on above: Order Comment: N Performed By: #### L 501.9520, L501.70828, L503.6550, L500.4100, L506.1000, L503.6030, L503.0105, L100.0100, L500.4050, L501.9310, L506.0250 ####[facility] [address] [place], [place], [id number] ALK P 34 U/L Low 45-117 [facility] Comment on above: Order Comment: N Performed By: #### L 501.9520, L501.92473, L503.6550, L500.4100, L506.1000, L503.6030, L503.0105, L100.0100, L500.4050, L501.9310, L506.0250 ####[facility] [address] [place], [address] ALT [Catalytic activity/Vol] 23 U/L Normal 13-56 [facility] Comment on above: Order Comment: N Performed By: #### L 501.9520, L501.09707, L503.6550, L500.4100, L506.1000, L503.6030, L503.0105, L100.0100, L500.4050, L501.9310, L506.0250 ####[facility] [address] [place], [address] AST [Catalytic activity/Vol] 16 U/L Normal 15-37 [facility] Comment on above: Order Comment: N Performed By: #### L 501.9520, L501.71695, L503.6550, L500.4100, L506.1000, L503.6030, L503.0105, L100.0100, L500.4050, L501.9310, L506.0250 ####[facility] [address] [place], [address] Bilirubin [Mass/Vol] 0.30 mg/dL Normal 0.20-1.00 [facility] Comment on above: Order Comment: N Result Comment: For patients on eltrombopag therapy, use of Dimension [place] TBIL is not recommended. Performed By: #### L 501.9520, L501.81335, L503.6550, L500.4100, L506.1000, L503.6030, L503.0105, L100.0100, L500.4050, L501.9310, L506.0250 ####[facility] [address] [place], [address] BUN/CRE 16.1 RATIO Normal 10-20 [facility] Comment on above: Order Comment: N Performed By: #### L 501.9520, L501.91898, L503.6550, L500.4100, L506.1000, L503.6030, L503.0105, L100.0100, L500.4050, L501.9310, L506.0250 ####[facility] [address] [place], [address] CA,Total 9.1 mg/dL Normal 8.5-10.1 [facility] Comment on above: Order Comment: N Performed By: #### L 501.9520, L501.80818, L503.6550, L500.4100, L506.1000, L503.6030, L503.0105, L100.0100, L500.4050, L501.9310, L506.0250 ####[facility] [address] [place], [place], [phone](796) Chloride [Moles/Vol] 106 mmol/L Normal 98-107 [facility] Comment on above: Order Comment: N Performed By: #### L 501.9520, L501.72161, L503.6550, L500.4100, L506.1000, L503.6030, L503.0105, L100.0100, L500.4050, L501.9310, L506.0250 ####[facility] [address] [place], [place], [phone](678) CO2 [Moles/Vol] 26.0 mmol/L Normal 21.0-32.0 [facility] Comment on above: Order Comment: N Performed By: #### L 501.9520, L501.09413, L503.6550, L500.4100, L506.1000, L503.6030, L503.0105, L100.0100, L500.4050, L501.9310, L506.0250 ####[facility] [address] [place], [address] Creatinine [Mass/Vol] 0.93 mg/dL Normal 0.55-1.02 [facility] Comment on above: Order Comment: N Result Comment: The validity of the calculated GFR GFRAA in patients over 70 years has not been determined. Clinical correlation is essential. Performed By: #### L 501.9520, L501.17958, L503.6550, L500.4100, L506.1000, L503.6030, L503.0105, L100.0100, L500.4050, L501.9310, L506.0250 ####[facility] [address] [place], [address] EST GFR - AA 89 mL/min Normal >60 [facility] Comment on above: Order Comment: N Result Comment: Afri can [place] GFR Calc Performed By: #### L 501.9520, L501.99959, L503.6550, L500.4100, L506.1000, L503.6030, L503.0105, L100.0100, L500.4050, L501.9310, L506.0250 ####[facility] [address] [place], [place], [id number] GAP 5 Normal 5-15 [facility] Comment on above: Order Comment: N Performed By: #### L 501.9520, L501.46581, L503.6550, L500.4100, L506.1000, L503.6030, L503.0105, L100.0100, L500.4050, L501.9310, L506.0250 ####[facility] [address] [place], [address](236) GFR/1.73 sq M.predicted among non-blacks MDRD (S/P/Bld) [Vol rate/Area] 74 mL/min/{1.73_m2} Normal >60 [facility] Comment on above: Order Comment: N Result Comment: Non- GFR Calc Performed By: #### L 501.9520, L501.83222, L503.6550, L500.4100, L506.1000, L503.6030, L503.0105, L100.0100, L500.4050, L501.9310, L506.0250 ####[facility] [address] [place], [address] Globulin (S) [Mass/Vol] 3.2 g/dL Normal 2.2-4.2 [facility] Comment on above: Order Comment: N Performed By: #### L 501.9520, L501.37440, L503.6550, L500.4100, L506.1000, L503.6030, L503.0105, L100.0100, L500.4050, L501.9310, L506.0250 ####[facility] [address] [place], [address] Glucose [Mass/Vol] 95 mg/dL Normal 74-106 [facility] Comment on above: Order Comment: N Performed By: #### L 501.9520, L501.24280, L503.6550, L500.4100, L506.1000, L503.6030, L503.0105, L100.0100, L500.4050, L501.9310, L506.0250 ####[facility] [address] [place], [address] Potassium [Moles/Vol] 4.2 mmol/L Normal 3.5-5.1 [facility] Comment on above: Order Comment: N Performed By: #### L 501.9520, L501.63995, L503.6550, L500.4100, L506.1000, L503.6030, L503.0105, L100.0100, L500.4050, L501.9310, L506.0250 ####[facility] [address] [place], [place], [phone] Sodium [Moles/Vol] 137 mmol/L Normal 136-145 [facility] Comment on above: Order Comment: N Performed By: #### L 501.9520, L501.42875, L503.6550, L500.4100, L506.1000, L503.6030, L503.0105, L100.0100, L500.4050, L501.9310, L506.0250 ####[facility] [address] [place], [place], [phone] T PROT 7.0 g/dL Normal 6.4-8.2 [facility] Comment on above: Order Comment: N Performed By: #### L 501.9520, L501.19503, L503.6550, L500.4100, L506.1000, L503.6030, L503.0105, L100.0100, L500.4050, L501.9310, L506.0250 ####[facility] [address] [place], [place], [phone] Urea nitrogen [Mass/Vol] 15 mg/dL Normal 7-18 [facility] Comment on above: Order Comment: N Performed By: #### L 501.9520, L501.96693, L503.6550, L500.4100, L506.1000, L503.6030, L503.0105, L100.0100, L500.4050, L501.9310, L506.0250 ####[facility] [address] [place], [place], [id number] Ferritinon 08-05-2024 Ferritin [Mass/Vol] 5 ng/mL Low 8-252 [facility] Comment on above: Order Comment: N Performed By: #### L 501.9520, L501.10386, L503.6550, L500.4100, L506.1000, L503.6030, L503.0105, L100.0100, L500.4050, L501.9310, L506.0250 ####[facility] [address] [place], [address] Folates, (Folic Acid)on 07-08 FOLATES 28.10 ng/mL Normal 3.1-55.4 [facility] Comment on above: Order Comment: N Performed By: #### L 501.9520, L501.67754, L503.6550, L500.4100, L506.1000, L503.6030, L503.0105, L100.0100, L500.4050, L501.9310, L506.0250 ####[facility] [address] [place], [address] Free T3on 08-05-2024 Free T3 [Mass/Vol] 2.3 pg/mL Normal 2.18-3.98 [facility] Comment on above: Order Comment: N Performed By: #### L 501.9520, L501.55909, L503.6550, L500.4100, L506.1000, L503.6030, L503.0105, L100.0100, L500.4050, L501.9310, L506.0250 ####[facility] [address] [place], [address] Iron+Iron Binding Capacityon 08-05-2024 Iron [Mass/Vol] 135 ug/dL Normal 50-170 [facility] Comment on above: Order Comment: N Performed By: #### L 501.9520, L501.38065, L503.6550, L500.4100, L506.1000, L503.6030, L503.0105, L100.0100, L500.4050, L501.9310, L506.0250 ####[facility] [address] [place], [address] IRON SATURATION 29.7 Normal 15.0-55.0 [facility] Comment on above: Order Comment: N Performed By: #### L 501.9520, L501.81754, L503.6550, L500.4100, L506.1000, L503.6030, L503.0105, L100.0100, L500.4050, L501.9310, L506.0250 ####[facility] [address] [place], [address] TIBC 454 ug/dL High 250-450 [facility] Comment on above: Order Comment: N Performed By: #### L 501.9520, L501.89873, L503.6550, L500.4100, L506.1000, L503.6030, L503.0105, L100.0100, L500.4050, L501.9310, L506.0250 ####[facility] [address] [place], [place], [id number] Lipid Profileon 08-05-2024 Cholesterol [Mass/Vol] 147 mg/dL Normal 200 [facility] Comment on above: Order Comment: N Result Comment: <200 mg/dL Desirable 200-240 mg/dL Borderline >240 mg/dL High Risk Performed By: #### L 501.9520, L501.03480, L503.6550, L500.4100, L506.1000, L503.6030, L503.0105, L100.0100, L500.4050, L501.9310, L506.0250 ####[facility] [address] [place], [place], [id number] Cholesterol in HDL [Mass/Vol] 74 mg/dL Normal [facility] Comment on above: Order Comment: N Result Comment: The drugs N-Acetylcysteine and Metamizole may falsely depress this assay. Reference Range HDL <40 mg/dL Low HDL Cholesterol HDL >or= 60 mg/dL High HDL Cholesterol Performed By: #### L 501.9520, L501.23048, L503.6550, L500.4100, L506.1000, L503.6030, L503.0105, L100.0100, L500.4050, L501.9310, L506.0250 ####[facility] [address] [place], [place], [id number] Cholesterol in LDL [Mass/Vol] 63 mg/dL Normal 0-130 [facility] Comment on above: Order Comment: N Performed By: #### L 501.9520, L501.03017, L503.6550, L500.4100, L506.1000, L503.6030, L503.0105, L100.0100, L500.4050, L501.9310, L506.0250 ####[facility] [address] [place], [place], [id number] Cholesterol in VLDL [Mass/Vol] 10 mg/dL Normal 5-40 [facility] Comment on above: Order Comment: N Performed By: #### L 501.9520, L501.98092, L503.6550, L500.4100, L506.1000, L503.6030, L503.0105, L100.0100, L500.4050, L501.9310, L506.0250 ####[facility] [address] [place], [place], [id number] Triglyceride [Mass/Vol] 51 mg/dL Normal [facility] Comment on above: Order Comment: N Result Comment: The drugs N-Acetylcysteine and Metamizole may falsely depress this assay. Serum Triglycerides Reference Interval Normal <150 mg/dL Borderline high 150 - 199 mg/dL High 200 - 499 mg/dL Very High > or = 500 mg/dL Performed By: #### L 501.9520, L501.85370, L503.6550, L500.4100, L506.1000, L503.6030, L503.0105, L100.0100, L500.4050, L501.9310, L506.0250 ####[facility] [address] [place], [place], [phone] Neurology Visit Reporton Neurology Visit Report [facility] [address], [address] [place] [address] OFFICE VISIT Date of Service: 08/05/24 MR#: [id number] Acct: [id number] Name: DK PENA Rep #: [id number] : 1990 Provider: Dr. Ulices haque MD Age/Sex: 34/F Location: [facility] Status: Signed HPI HPI Chief Complaint: Est Care Details: The patient is a 34 year old female, she is right handed who present to [facility]. She was referred by [facility] byBrandon Slaughter VALUE ADVISOR for memory loss. This patient presents for evaluation of episodes of memory loss. She may also have baseline recent memory defect as well. Patient has bipolar with manic episodes and depressive episodes. She admits to having a great deal of paranoid delusions. In terms of visual hallucinations that she describes seeing things out of the corner of her eye which are not there. Sometimes she describes seeing transient visual distortions as if something is moving when she knows that that is not the case. Although some of these may be psychogenic in origin consideration of temporal lobe or occipital lobe irritability or epileptiform type activity may warrant consideration. Patient had been started on Caplyta for management of her psychosis. She has also been recently started on Lamictal 25 mg p.o. daily. Patient does feel that Lamictal has helped her but at this time notices that she may have episodes of memory loss. Episodes of memory loss can be described as might be experienced when watching TV and missing a segment of the TV show followed by return to seeing the story remembering the story. She may experience that type of memory defect in other settings. For example when she was driving her car leaving [employer] that she was unaware of which way to turn her how to drive to home. This was a relatively unusual event for her but perhaps emblematic of type of episodes that she may be having. While can be very difficult to ascertain the exact causes for these episodes further evaluation does appear to be indicated. Patient also describes a feeling of tremoring or pain between her shoulder blades or at the base of her cervical spine. No particular injuries or other events have been associated with these episodes. 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 A biopsy had been performed which apparently did not reveal a malignancy. ROS: General Patient is concerned about her general overall health but no current diagnosis of physical illness noted other than cystic lesion left neck as noted above. Patient has had recent screening for STD. 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 Patient has not had intracranial manifestations of HSV 1 noted to date. HEENT: Patient reports a dull chronic grade 2/10 vertex headache. Eyes intact. Hearing intact Respiratory without cough or hemoptysis Cardiac episodes of tachycardias associated with anxiety Abdomen does not vomit blood or passed blood in stool does not pass blood with urine Extremities without clubbing cyanosis or edema or injury Skin intact no lesions Neurologic patient describes no seizures strokes or head injuries Exam Const Other: Blood pressure 108/80 pulse 67 respiration 17 temperature 98.4 O2 sat 99%. General appearance is a bit anxious lady sitting in a chair 1 leg folded underneath her. Tapping the 1 foot on the floor. HEENT normocephalic. Conjunctiva clear Respiratory clear to auscultation Cardiac appear to be mildly tachycardic at time of auscultation no murmur Abdomen nondistended nontender Extremities without evidence of trauma Skin without evidence of lesions. Neurologic examination: Mental status: She is awake and alert and oriented. Memory shows recalled 2 out of 3 objects. Mini-Mental status exam was 29/30. Patient did indicate that she was anxious and that she was prone to delusional/paranoid thinking. No visual hallucinations at the time I am seeing her. CN II-XII: Pupils equal round react to light. Extraocular muscles intact without nystagmus. No ptosis. Motor and sensory function face normal. Hearing swallowing phonation tongue normal. Neck appears to be supple. Palpation over cervical spine demonstrated no particular abnormality that would account for the patient's complaint of odd sensation over the neck. She does have about 1 and half centimeter nodule located in the anterior triangle on the left side just anterior to the sternocleidomastoid and just below jawline. This is apparently the cystic lesion is being followed by medicine. Motor examination demonstrates normal bulk tone and strength. No focal atrophy's. Cerebellar testing showed no tremors cogwheeling or ataxia. Moveme (more content not included)... Normal [facility] T4 Total, Thyroxinon 024 T4 [Mass/Vol] 8.7 ug/dL Normal 4.8-13.9 [facility] Comment on above: Order Comment: N Performed By: #### L 501.9520, L501.63189, L503.6550, L500.4100, L506.1000, L503.6030, L503.0105, L100.0100, L500.4050, L501.9310, L506.0250 ####[facility] [address] [place], [place], [phone] Thyroid Stim Hormone (TSH)on 08-05-2024 TSH 3.470 uIU/mL Normal 0.358-3.740 [facility] Comment on above: Order Comment: N Performed By: #### L 501.9520, L501.14381, L503.6550, L500.4100, L506.1000, L503.6030, L503.0105, L100.0100, L500.4050, L501.9310, L506.0250 ####[facility] [address] [place], [place], [id number] Vitamin B12on 08-05-2024 Cobalamin (Vitamin B12) [Mass/Vol] 796 pg/mL Normal 211-911 [facility] Comment on above: Performed By: #### L 501.9520, L501.06118, L503.6550, L500.4100, L506.1000, L503.6030, L503.0105, L100.0100, L500.4050, L501.9310, L506.0250 ####[facility] [address] [place], [place], [phone] Vitamin D,25 Hydroxyon 08-05 Vitamin D 25-OH 30.2 ng/mL Normal [facility] Comment on above: Result Comment: Jacqueline min D 25(OH) Status Range Deficiency <20 ng/mL (50nmol/L) Insufficiency 20 - 30 ng/mL (50 - 75 nmol/L) Sufficiency 30 - 100 ng/mL (75 - 250 nmol/L) Toxicity >100 ng/mL (>250 nmol/L) Performed By: #### L 501.9520, L501.44642, L503.6550, L500.4100, L506.1000, L503.6030, L503.0105, L100.0100, L500.4050, L501.9310, L506.0250 ####[facility] [address] [place], [address] Lumbar Spine 2 or 3 Viewson 06-17-2024 Lumbar Spine 2 or 3 Views [facility] Imaging Services [address] [place], [place] [address] Lumbar Spine 2 or 3 Views MR#: [id number] Acct: [id number] Name: DK PENA Rep #: [id number] : 1990 F 34 From: Adolfo Matos MD PCP: NIR Hong Status: [facility] CLI Study: Lumbar Spine 2 or 3 Views Date of Exam: Exam# [id number] Ordering Dr: Edmond Arrieta [id number] STUDY: X-RAY - LUMBAR SPINE REASON FOR EXAM: Female, 34 years old. Low back pain. TECHNIQUE: 2 view(s) of the lumbar spine were obtained. COMPARISON: None FINDINGS: Normal lumbar lordosis. There is no substantial scoliosis. There is a normal alignment of the vertebrae. Spina bifida occulta of S1, a normal variant. Intervertebral disc space narrowing at L2-3 with small osteophytes. Minimal intervertebral disc space narrowing at L5-S1 without osteophytes. The soft tissue structures are normal. RAD/Lumbar Spine 2 or 3 Views IMPRESSION: Spina bifida occulta with mild disc degeneration at L2-3 and L5-S1. Electronically Signed: Adolfo Matos MD at 10:16 EDT , CC: NIR Arrieta Tubing Machine Tender[facility] Office Visit (UCW[facility] ) DK PENA ([id number]) 1990 F Date Time Provider Department 05/29/24 9:45 AM WILLY MCKEON [facility] During your visit today, we recorded the following information about you: Temperature Pulse Respiration Blood pressure 97.8 degrees 63/minute 14/minute 122/68 Weight 64 kg Willy Mckeon MD 05/29/2024 10:24 AM Signed Patient presents with: Rash: Bilateral arms x 3 days HPI: Rash: Location: axilla Duration: 3 days Pruritis: little Pain: tee Change: seemed to start as dry skin, aggravated by shaving Bleeding/ulceration/bli ster/pustule: cracked, dry. No pustules or vesicles. Contacts with rash: No Exposure: No new soaps, detergents, fabric softeners, lotions. Changed deodorant 2 months ago. Recent illness: No. Denies abrasion or tight sleeves in shirts. Treatment: aquafor, athletes foot spray last night (application is not comfortable) MEDICATIONS: lamoTRIgine (LAMICTAL) 25 mg tablet Take 25 mg by mouth. CAPLYTA 10.5 mg capsule Clindamycin Phosphate (CLEOCIN T) 1 % lotion APPLY LOTION TOPICALLY TO AFFECTED AREA TWICE DAILY 14 DAYS ALLERGIES: ALLERGIES Allergen Reactions Codeine Itching Fluoxetine Unknown Nickel Rash VITALS: BP 122/68 Pulse 63 Temp 36.6 ?C (97.8 ?F) (Tympanic) Resp 14 Wt 64 kg (141 lb 1.5 oz) LMP 11/28/2023 (Exact Date) BMI 23.48 kg/m? PHYSICAL EXAM: GEN: pleasant, no acute distress, alert SKIN: Rash is present in left greater than right axilla. There is reddish-purple macular irregular patches without induration or ulceration. The rash is tender to touch and may have mild fissuring. ASSESSMENT/PLAN: 1. Rash - ICD9: 782.1, ICD10: R21 Rash is most consistent with ecchymosis, but no recalled insult to produce it. She may switch to - CLOTRIMAZOLE 1 % TOPICAL CREAM Follow up with signs of infection such as increasing redness, pain, swelling, purulent drainage, or fever/malaise. Willy Mckeon MD Allergies As of Date: 05/29/2024 Noted Allergy Reaction CODEINE 11/15/2019 9 - Itching FLUOXETINE 11/20/2022 16 - Unknown NICKEL 02/07/2017 2 - Rash Date Reviewed: 05/29/2024 Reviewed by: Nani Rodriguez MA - Fully Assessed Reason for Visit: Rash [1087] Cmt: Bilateral arms x 3 days Primary Visit Diagnosis:Rash [R21] Order(s):clotrimazole (LOTRIMIN) 1 % creamApply to affected area two times a day for 14 days.Disp: 30 gRfl: 0 Prescriptions as of 05/29/2024 - lamoTRIgine (LAMICTAL) 25 mg tablet Take 25 mg by mouth. - clotrimazole (LOTRIMIN) 1 % cream Apply to affected area two times a day for 14 days. - CAPLYTA 10.5 mg capsule - Clindamycin Phosphate (CLEOCIN T) 1 % lotion APPLY LOTION TOPICALLY TO AFFECTED AREA TWICE DAILY 14 DAYS Problem List As Of Date 05/29/2024 Noted Resolved Obesity in [O99.210] 02/07/2017 Encounter for supervision of normal i*02/07/2017 Abnormal O'Henao glucose challenge test, ant*03/10/2017 Prescriptions ordered this encounter Disp Refills Start End CLOTRIMAZOLE 1 % TOPICAL CREAM 30 g 0 05/29/2024 06/12/2024 Route: TOPICAL Sig: Apply to affected area two times a day for 14 days. Medications Discontinued During This Encounter Prescriptions - acetaminophen (TYLENOL) 325 mg tablet (Discontinued) Reported on 12/08/2023 - albuterol HFA (PROAIR HFA) 90 mcg/actuation inhaler (Discontinued) Reported on 07/18/2023 - cetirizine-pseudoephedr ine (ZYRTEC-D) 5-120 mg per tablet (Discontinued) Reported on 07/18/2023 - Etonogestrel-Ethinyl Estradiol (NUVARING) 0.12-0.015 mg/24 hr vaginal ring (Discontinued) Reported on 03/10/2019 - fluticasone (FLONASE) 50 mcg/actuation nasal spray (Discontinued) Reported on 07/18/2023 - metFORMIN (GLUCOPHAGE) 500 mg tablet (Discontinued) Reported on 01/16/2023 - VIT/IRON FUM/FOLIC AC ( VITAMIN ORAL) (Discontinued) Reported on 03/29/2021 - topiramate (TOPAMAX) 100 mg tablet (Discontinued) Reported on 06/11/2022 - topiramate (TOPAMAX) 25 mg tablet (Discontinued) Reported on 03/29/2021 - triamcinolone acetonide (KENALOG) 0.1 % cream (Discontinued) Reported on 03/29/2021 Level of Service: OFFICE/OUTPATIENT ESTABLISHED MOD [facility] 30 MIN [63462] Encounter Status:Closed by WILLY MCKEON on 05/29/[address] [facility] Internal Medicine Office Vis watson 04-30-2024 Internal Medicine Office Visit [facility] [address] [place] [address] [place] [address] OFFICE VISIT Date of Service: 04/30/24 MR#: [id number] Acct: [id number] Name: DK PENA Rep #: [id number] : 1990 Provider: NIR tidwell Age/Sex: 33/F Location[facility] Status: Signed with Addenda ADDENDUM by NIR Arrieta on 04/30/24 at 1225 HPI Details: DK PENA, is a 33 F who presents to the office today for correction- *when she was take off of captyla Assessment and Plan Assessment and Plan (1) Constipation: Status: Acute Qualifiers: Constipation type: unspecified constipation type Qualified Code(s): K59.00 - Constipation, unspecified Medications: New lubiprostone (Amitiza) 24 mcg PO DAILY 90 caps 0RF 04/30/24 1225 Date Edmond Arrieta VALUE ADVISORJennifer cc: * Signed Intake Vital Signs 03/23/24 16:01 04/30/24 11:02 Height 5 ft 5 in 5 ft 5 in Weight: 146 lb BMI 24.3 BP 118/66 Blood Pressure Location Lt brachial Position Sitting Respiration 17 Pulse 62 Pulse Source Monitor Temp 98.3 F Temp Source Temporal Pulse Oximetry (%) 96 Oxygen Delivery Method room air Intake Visit Reasons: DIGESTIVE ISSUES Chief Complaint: Digestive Issues Allergies fluoxetine (From Prozac) Allergy (Verified 04/30/24 11:03) Angioedema nickel Allergy (Verified 04/30/24 11:03) Rash codeine Adverse Reaction (Verified 04/30/24 11:03) Other Medications ???Medication ???Instructions ???Recorded ???Confirmed ???Type tretinoin 0.025 % topical cream 1 applic topical QHS #20 grams 12/12/23 04/30/24 Rx docusate sodium 50 mg capsule 50 mg PO DAILY 02/17/24 04/30/24 History (Colace Clear) lamotrigine 25 mg tablet 25 mg PO QDAY 04/30/24 04/30/24 History lubiprostone 24 mcg capsule 24 mcg PO DAILY #90 caps 04/30/24 04/30/24 Rx (Amitiza) lumateperone 10.5 mg capsule 10.5 mg PO DAILY 04/30/24 04/30/24 History (Caplyta) Nurse's Note: pt reports having chronic constipation for the past 10 months states that nothing seems to help with it. reports her last BM was this am MD tobias. [facility] Medical History Borderline personality disorder Adjustment disorder DANA (generalized anxiety disorder) Persistent depressive disorder Nicotine dependence, cigarettes, uncomplicated Family History Mother Anxiety Arthritis Autoimmune disease Depressed Diabetes Skin cancer Mental disorder Psychiatric care Father Anxiety Asthma Hypertension High cholesterol Skin cancer Social History household members: children housing: house current occupational status: unemployed Smoking Status: Current some day smoker tobacco type: e-cigarettes alcohol intake: never substance use type: does not use what type of physical activity do you participate in: walking frequency: 3-4 times per week seatbelt use: always do you feel safe at home: Yes HPI HPI Chief Complaint: Digestive Issues Details: DK PENA, is a 33 F who presents to the office today for an acute visit to discuss constipation.Patient has had ongoing constipation since beginning Caplyta. When she was taken off of Blood in the past her constipation resolved. She reports she will go 4 to 5 days without having a bowel movement. She has been utilizing lmgg-ano-dsntlld Colace daily however she still goes 3 to 4 days without having a bowel movement reports bowel movement is firm at times. She then utilizes avmx-fbd-psfquxr senna and this will provide some relief but again does not achieve a soft small bowel movement per day. She has had previous stool occult studies that were normal. Labs have also been stable. She was advised to try MiraLAX at her last appointment and states she has been utilizing this and it did not help. She drinks on average 120 ounces of water per day. Has recently decreased her caffeine use. She reports she consumes an adequate amount of fiber per day with fruits and vegetables. She is physically active and runs. She was prescribed Linzess for constipation however this was denied by her insurance. She denies abdominal pain, has occasional bloating, denies diarrhea, blood in stool, mucus, rectal pain itching or hemorrhoids, nausea, vomiting. ROS Const Constitutional: No body ache, chills, excessive sweating, fatigue, fever(s), frequent falls, headache(s), snoring, weight change, sleep problems, abnormal sleep pattern or change in appetite Eyes Eyes: No blurry vision, change in vision, eye pain or Light sensitivity ENT ENT: No abnormal hearing, ear or mastoid pain, tinnitus, nasal congestion, headache(s), neck pain (more content not included)... Normal [facility] VIRGEN Mauricio CELESTE BILon 2023 [facility] LYNNE Luly CELESTE ANN MARIE * * *Final Report* * * DATE OF EXAM: Dec 31 2023 10:02AM LDW [id number] - [facility] VIRGEN Mauricio CELESTE ANN MARIE / PROCEDURE REASON: Mass of breast R92.2. , Dense breast R92.30 * * * * Physician Interpretation * * * * #[id number] - [facility] VIRGEN Mauricio CELESTE ANN MARIE #[id number] - [facility] US BREAST LTD #[id number] - [facility] BREAST LTD RT BILATERAL DIGITAL DIAGNOSTIC MAMMOGRAM TOMOSYNTHESIS WITH CAD: 12/31/2023 HISTORY: Patient presents for bilateral palpable abnormalities. N63.0 Lump In Female Breast Patient presents with left breast lump. N63.0 Lump In Female Breast Patient presents with right breast lump. RESULT: TECHNIQUE: The study was acquired using full field digital technology and interpreted from soft copy. Digital Breast Tomosynthesis (DBT) images were obtained and used to assist in the interpretation of this examination. Current study was also evaluated with a Computer Aided Detection (CAD). No prior exams were available for comparison. The breasts are heterogeneously dense, which may obscure small masses. No significant masses, calcifications, or other findings are seen in either breast. IMPRESSION: INCOMPLETE: NEEDS ADDITIONAL IMAGING EVALUATION Ultrasound is recommended. The exam was reviewed by a staff physician. LIMITED ULTRASOUND OF LEFT BREAST: 12/31/2023 RESULT: No prior exams were available for comparison. Color flow and real-time ultrasound of the left breast 3 o'clock region were performed. Mohr scale images of the real-time examination were reviewed. There is a benign 0.8 cm x 0.8 cm x 0.6 cm oval oil cyst in the left breast at 3 o'clock 2 cm from the nipple. This correlates as palpated and with mammography findings. Color flow imaging demonstrates that there is no vascularity present. This finding correlates with a benign partially calcified oil cyst mammographically. No suspicious findings. IMPRESSION: BENIGN FINDING There is no sonographic evidence of malignancy. The 0.8 cm x 0.8 cm x 0.6 cm oval oil cyst in the left breast is benign. Clinical follow up is recommended. The exam was reviewed by a staff physician. LIMITED ULTRASOUND OF RIGHT BREAST: 12/31/2023 RESULT: No prior exams were available for comparison. Color flow and real-time ultrasound of the right breast 11 o'clock region were performed. Mohr scale images of the real-time examination were reviewed. There is a benign 0.8 cm x 0.7 cm x 0.3 cm cluster of cysts in the right breast at 11 o'clock 3 cm from the nipple. This cluster of cysts is anechoic and septated. This correlates as palpated. Color flow imaging demonstrates that there is no vascularity present. IMPRESSION: BENIGN FINDING There is no sonographic evidence of malignancy. The 0.8 cm x 0.7 cm x 0.3 cm cluster of cysts in the right breast is benign. Clinical follow up is recommended. Return to annual mammogram screening schedule is recommended. The exam was reviewed by a staff physician. Coni leonardo,[facility]/[place]:12/31/2023 18:19:51 Multiple national specialty organizations have released breast cancer screening guidelines for women at average risk for developing breast cancer - guidelines that are based on both evidence and opinion, yet differ on when to start and how often to screen for breast cancer. With representation from Breast Imaging, Internal Medicine, Women's Health, Family Medicine, and Medical/Surgical Oncology, the [facility] has carefully reviewed the data and reached the following consensus: 1) All women should engage in shared decision-making with their providers to decide when to start and how often to screen; 2) All women should have the opportunity to start screening mammography at age 40; 3) For women ages 45-55, we recommend annual screening mammograms; 4) For women ages 55 and over, we support both the transition from an annual to a biennial interval if this aligns more with patient's values and preferences, or continuation with annual screening; 5) All women should discuss with their providers when to stop screening mammograms. [employer] As[employer]er(s): Lucio Mcginnis (R)(M), [facility]; US Bella, [facility] OVERALL STUDY BIRADS: 2 Benign finding Tubing Machine Tender: Diego Transcribe Date/Time: Dec 31 2023 9:32A Dictated by : CONI FREEMAN MD This examination was interpreted and the report reviewed and electronically signed by: CONI FREEMAN MD on Dec 31 2023 6:19PM EST [id number] Normal [facility] US BREAST LTD LTon 12-30 [facility] US BREAST LTD LT * * *Final Report* * * DATE OF EXAM: Dec 31 2023 2:25PM LDW 0593 - [facility] US BREAST LTD LT / PROCEDURE REASON: N63.0 Lump in female breast * * * * Physician Interpretation * * * * #[id number] - [facility] DIAG W CELESTE ANN MARIE #[id number] - [facility] US BREAST LTD LT #[id number] - [facility] US BREAST LTD RT BILATERAL DIGITAL DIAGNOSTIC MAMMOGRAM TOMOSYNTHESIS WITH CAD: 12/31/2023 HISTORY: Patient presents for bilateral palpable abnormalities. N63.0 Lump In Female Breast Patient presents with left breast lump. N63.0 Lump In Female Breast Patient presents with right breast lump. RESULT: TECHNIQUE: The study was acquired using full field digital technology and interpreted from soft copy. Digital Breast Tomosynthesis (DBT) images were obtained and used to assist in the interpretation of this examination. Current study was also evaluated with a Computer Aided Detection (CAD). No prior exams were available for comparison. The breasts are heterogeneously dense, which may obscure small masses. No significant masses, calcifications, or other findings are seen in either breast. IMPRESSION: INCOMPLETE: NEEDS ADDITIONAL IMAGING EVALUATION Ultrasound is recommended. The exam was reviewed by a staff physician. LIMITED ULTRASOUND OF LEFT BREAST: 12/31/2023 RESULT: No prior exams were available for comparison. Color flow and real-time ultrasound of the left breast 3 o'clock region were performed. Mohr scale images of the real-time examination were reviewed. There is a benign 0.8 cm x 0.8 cm x 0.6 cm oval oil cyst in the left breast at 3 o'clock 2 cm from the nipple. This correlates as palpated and with mammography findings. Color flow imaging demonstrates that there is no vascularity present. This finding correlates with a benign partially calcified oil cyst mammographically. No suspicious findings. IMPRESSION: BENIGN FINDING There is no sonographic evidence of malignancy. The 0.8 cm x 0.8 cm x 0.6 cm oval oil cyst in the left breast is benign. Clinical follow up is recommended. The exam was reviewed by a staff physician. LIMITED ULTRASOUND OF RIGHT BREAST: 12/31/2023 RESULT: No prior exams were available for comparison. Color flow and real-time ultrasound of the right breast 11 o'clock region were performed. Mohr scale images of the real-time examination were reviewed. There is a benign 0.8 cm x 0.7 cm x 0.3 cm cluster of cysts in the right breast at 11 o'clock 3 cm from the nipple. This cluster of cysts is anechoic and septated. This correlates as palpated. Color flow imaging demonstrates that there is no vascularity present. IMPRESSION: BENIGN FINDING There is no sonographic evidence of malignancy. The 0.8 cm x 0.7 cm x 0.3 cm cluster of cysts in the right breast is benign. Clinical follow up is recommended. Return to annual mammogram screening schedule is recommended. The exam was reviewed by a staff physician. Coni leonardo,[facility]/diego:12/31/2023 18:19:51 Multiple national specialty organizations have released breast cancer screening guidelines for women at average risk for developing breast cancer - guidelines that are based on both evidence and opinion, yet differ on when to start and how often to screen for breast cancer. With representation from Breast Imaging, Internal Medicine, Women's Health, Family Medicine, and Medical/Surgical Oncology, the [facility] has carefully reviewed the data and reached the following consensus: 1) All women should engage in shared decision-making with their providers to decide when to start and how often to screen; 2) All women should have the opportunity to start screening mammography at age 40; 3) For women ages 45-55, we recommend annual screening mammograms; 4) For women ages 55 and over, we support both the transition from an annual to a biennial interval if this aligns more with patient's values and preferences, or continuation with annual screening; 5) All women should discuss with their providers when to stop screening mammograms. [employer] Assembler(s): Lucio Mcginnis (R)(M), [facility]; Alphonse Lawrence [place], [facility] OVERALL STUDY BIRADS: 2 Benign finding Tubing Machine Tender: Diego Transcribe Date/Time: Dec 31 2023 9:32A Dictated by : CONI FREEMAN MD This examination was interpreted and the report reviewed and electronically signed by: CONI FREEMAN MD on Dec 31 2023 6:19PM EST [id number] Normal [facility] US BREAST LTD RTon 12-30 [facility] US BREAST LTD RT * * *Final Report* * * DATE OF EXAM: Dec 31 2023 2:25PM LDW 0594 - [facility] US BREAST LTD RT / PROCEDURE REASON: N63.0 Lump in female breast * * * * Physician Interpretation * * * * #[id number] - [facility] DIAG W CELESTE NAN MARIE #[id number] - [facility] US BREAST LTD LT #[id number] - [facility] US BREAST LTD RT BILATERAL DIGITAL DIAGNOSTIC MAMMOGRAM TOMOSYNTHESIS WITH CAD: 12/31/2023 HISTORY: Patient presents for bilateral palpable abnormalities. N63.0 Lump In Female Breast Patient presents with left breast lump. N63.0 Lump In Female Breast Patient presents with right breast lump. RESULT: TECHNIQUE: The study was acquired using full field digital technology and interpreted from soft copy. Digital Breast Tomosynthesis (DBT) images were obtained and used to assist in the interpretation of this examination. Current study was also evaluated with a Computer Aided Detection (CAD). No prior exams were available for comparison. The breasts are heterogeneously dense, which may obscure small masses. No significant masses, calcifications, or other findings are seen in either breast. IMPRESSION: INCOMPLETE: NEEDS ADDITIONAL IMAGING EVALUATION Ultrasound is recommended. The exam was reviewed by a staff physician. LIMITED ULTRASOUND OF LEFT BREAST: 12/31/2023 RESULT: No prior exams were available for comparison. Color flow and real-time ultrasound of the left breast 3 o'clock region were performed. Mohr scale images of the real-time examination were reviewed. There is a benign 0.8 cm x 0.8 cm x 0.6 cm oval oil cyst in the left breast at 3 o'clock 2 cm from the nipple. This correlates as palpated and with mammography findings. Color flow imaging demonstrates that there is no vascularity present. This finding correlates with a benign partially calcified oil cyst mammographically. No suspicious findings. IMPRESSION: BENIGN FINDING There is no sonographic evidence of malignancy. The 0.8 cm x 0.8 cm x 0.6 cm oval oil cyst in the left breast is benign. Clinical follow up is recommended. The exam was reviewed by a staff physician. LIMITED ULTRASOUND OF RIGHT BREAST: 12/31/2023 RESULT: No prior exams were available for comparison. Color flow and real-time ultrasound of the right breast 11 o'clock region were performed. Mohr scale images of the real-time examination were reviewed. There is a benign 0.8 cm x 0.7 cm x 0.3 cm cluster of cysts in the right breast at 11 o'clock 3 cm from the nipple. This cluster of cysts is anechoic and septated. This correlates as palpated. Color flow imaging demonstrates that there is no vascularity present. IMPRESSION: BENIGN FINDING There is no sonographic evidence of malignancy. The 0.8 cm x 0.7 cm x 0.3 cm cluster of cysts in the right breast is benign. Clinical follow up is recommended. Return to annual mammogram screening schedule is recommended. The exam was reviewed by a staff physician. stephanie Britton M.D., D.O./diego:12/31/2023 18:19:51 Multiple national specialty organizations have released breast cancer screening guidelines for women at average risk for developing breast cancer - guidelines that are based on both evidence and opinion, yet differ on when to start and how often to screen for breast cancer. With representation from Breast Imaging, Internal Medicine, Women's Health, Family Medicine, and Medical/Surgical Oncology, the [facility] has carefully reviewed the data and reached the following consensus: 1) All women should engage in shared decision-making with their providers to decide when to start and how often to screen; 2) All women should have the opportunity to start screening mammography at age 40; 3) For women ages 45-55, we recommend annual screening mammograms; 4) For women ages 55 and over, we support both the transition from an annual to a biennial interval if this aligns more with patient's values and preferences, or continuation with annual screening; 5) All women should discuss with their providers when to stop screening mammograms. [employer] Assembler(s): Lucio Mcginnis)(M), [facility]; US Bella, [facility] OVERALL STUDY BIRADS: 2 Benign finding Tubing Machine Tender: Diego Transcribe Date/Time: Dec 31 2023 9:32A Dictated by : CONI FREEMAN MD This examination was interpreted and the report reviewed and electronically signed by: CONI FREEMAN MD on Dec 31 2023 6:19PM EST [id number] Normal [facility] CNOVon 12-08-2023 CNOV Office Visit ([facility] ) DK PENA ([id number]) 1990 F Date Time Provider Department 12/08/23 7:15 AM [facility] During your visit today, we recorded the following information about you: Temperature Pulse Respiration Blood pressure 97.7 degrees 82/minute 16/minute 122/68 Weight 72.6 kg Asia Blair PA-C 12/08/2023 7:45 AM Signed This note was created using [email or web address]. Subjective Dk Pena is a 33 year old female. HPI [...] taking: Reported on 07/18/2023) 1 Each 0 cetirizine-pseudoephedr ine (ZYRTEC-D) 5-120 mg per tablet Take 1 [...] Status: She is alert. Assessment and Plan ASSE (more content not included)... Normal [facility] CNOVon 11-28-2023 CNOV Office Visit ([facility] ) DK PENA ([id number]) 1990 F Date Time Provider Department 11/28/23 1:45 PM QUE ALSTON [facility] During your visit today, we recorded the following information about you: Temperature Pulse Respiration Blood pressure 97.9 degrees 77/minute 18/minute 110/71 Weight Last Period 72.1 kg 11/28/23 Que Alston APRN.HAT MENDER 11/28/2023 2:42 PM Signed Subjective HPI Nontoxic-appearing female presents urgent care [...] use. (Patient not taking: Reported on 07/18/2023) cetirizine-pseudoephedr ine (ZYRTEC-D) 5-120 mg per tablet Take 1 [...] swelling or pain on movement. Mouth/Throat: Lips: [place]. Mouth: Mucous membranes are moist. Pharynx: Oropharynx [...] Normal breath sounds. No stridor. No wheezing, r (more content not included)... Normal [facility] Heteroph Ab Ser Ql LAon 11-07 Heterophile Ab LA Ql (S) Negative Normal Negative [facility] Comment on above: Order Comment: Speci men Type: BLOOD SPECIMEN Ordering Facility: [facility] Address: [address] [place] [address] Result Comment: Infe ctious Mononucleosis rapid test is used as an aid in diagnosis of acute infection with Lauren-Wahl virus (EBV). The antibody levels may occasionally remain elevated up to several months after a primary EBV infection. Final interpretation should be done in conjunction with EBV-specific serology and clinical correlation. False positive results may occasionally be seen with other infectious agents such as Cytomegalovirus, Toxoplasma, and HIV among others as well as non-infectious conditions such as lymphoma. Clinical correlation is required. Performed By: #### 5 [id number] #### [facility] CLIA [id number] [address] [place], [place] [address] [address] [place] STREP A MOLECULAR (POC)on Procedural Control Valid [facility] Strep A (POCT) Negative Negative [facility] BACTERIAL VAGINOSIS AMPLIFIC ATIONon 01-17-2023 Lactobacillus crispatus+gasseri+je nsenii + Gardnerella vaginalis + Atopobium vaginae rRNA RUDDY+probe Ql (Vag fld) Negative Negative for bacterial vaginosis [facility] STREP A MOLECULAR (POC)on Procedural Control Valid [facility] Strep A (POCT) Negative Negative [facility] CBC and differentialon 01-04 Absolute Immature Granulocytes 0.0 0 10 3/uL -R- [place] [facility] Absolute Lymph 2.5 [facility] Absolute Ralls 0.5 [facility] Basophils (Bld) [#/Vol] 0.1 10*3/uL [facility] Basophils/100 WBC (Bld) 0.8 % [facility] Eosinophils (Bld) [#/Vol] 0.3 10*3/uL [facility] Eosinophils/100 WBC (Bld) 2.7 % [facility] Erythrocyte distribution width (RBC) [Ratio] 12.9 % 11.5 - 14.5 % [facility] Hematocrit (Bld) [Volume fraction] 46.6 % 33.6 - 46.8 % [facility] Hemoglobin (Bld) [Mass/Vol] 15.1 g/dL 11.7 - 15.8 g/dL [facility] Immature granulocytes/100 WBC (Bld) 0.3 % [facility] Interpretation and review of laboratory results Abnormal [facility] Lymphocytes/100 WBC (Bld) 25.8 % [facility] MCH (RBC) [Entitic mass] 32.3 pg 27.5 - 32.3 pg [facility] MCHC (RBC) [Mass/Vol] 32.4 g/dL 30.7 - 35.5 g/dl [facility] MCV (RBC) [Entitic vol] 99.6 fL High 80.2 - 99.0 fL [facility] Monocytes/100 WBC (Bld) 5.3 % [facility] Neutrophils (Bld) [#/Vol] 6.2 10*3/uL [facility] Neutrophils/100 WBC (Bld) 65.1 % [facility] Platelets (Bld) [#/Vol] 288.0 10*3/uL [facility] RBC (Bld) [#/Vol] 4.68 10*6/uL [facility] WBC LM Ql (Sput) 9.6 [facility] Comprehensive metabolic pane dominic 01-04-2022 Albumin [Mass/Vol] 4.4 g/dL 3.5 - 5.0 g/dL [facility] Alk Phos 54 U/L 24 - 126 U/L [facility] ALT [Catalytic activity/Vol] 20 U/L 4 - 35 U/L [facility] AST [Catalytic activity/Vol] 84 U/L High 3 - 47 U/L [facility] Bilirubin [Mass/Vol] 0.4 mg/dL 0.2 - 1 .6 mg/dL [facility] Calcium [Mass/Vol] 9.6 mg/dL 8.4 - 10. 4 mg/dL [facility] Chloride [Moles/Vol] 105 mmol/L 96 - 10 9 mmol/L [facility] CO2 [Moles/Vol] 23 mmol/L 22 - 30 mmol/L [facility] Creatinine [Mass/Vol] 0.79 mg/dL 0.52 - 1.04 mg/dL [facility] Glucose [Mass/Vol] 94 mg/dL 65 - 100 mg/dL [facility] Interpretation and review of laboratory results Abnormal [facility] Potassium [Moles/Vol] 4.0 mmol/L 3.6 - 5.1 mmol/L [facility] Protein [Mass/Vol] 7.2 g/dL 6.3 - 8.2 g/dL [facility] Sodium [Moles/Vol] 134 mmol/L Low 135 - 147 mmol/L [facility] Urea nitrogen [Mass/Vol] 9 mg/dL 8 - 20 mg/dL [facility] GLOMERULAR FILTRATION RATEon 01-04-2022 GFR >60 [facility] Comment on above: To estimate the GFR for Americans, multiply the result provided by 1.21. Population mean GFR = 116 ml/min/1.73 sq.m. for ages 18-29 yrs. The MDRD is validated in individuals 18-70 years of age. It is less accurate in patients with extremes of muscle mass, restriction of dietary protein, ingestion of creatine, extra-renal metabolism of creatinine, or treatment with medications that affect renal tubular creatinine secretion. GFR Categories in Chronic Kidney Disease (CKD) Category: GFR(mL/min/1.73m^2) Interpretation: G1* 90 or greater Normal or high G2* 60-89 Mild decrease G3a 45-59 Mild to moderate decrease G3b 30-44 Moderate to severe decrease G4 15-29 Severe decrease G5 14 or less Kidney failure *G1&G2: In the absence of evidence of kidney damage, neither GFR category G1 nor G2 fulfill the criteria for CKD Kidney Int Suppl.2013;3:1-150 No Panel Informationon 01-04 [facility] nRBC 0 [facility] TSHon 01-04-2022 TSH Qn 1.790 m[IU]/L [facility] NOVEL CORONAVIRUS NASOPHARYN GEAL - [facility] SPECIMEN ONLYon 07-31-2020 SARS-COV-2 NOT DETECTED Normal NOT DETECTED [facility] Comment on above: Order Comment: Submi tter Name: [facility] Agent Suspected: SARS-COV-2 This test was performed using real time PCR and has been approved for the qualitative detection of SARS-CoV-2 nucleic acid. The test has been authorized by the FDA under an emergency use authorization for use by authorized laboratories. Result Comment: Nega tive results do not preclude SARS-CoV-2 infection and should not be used as the sole basis for treatment or other patient management decisions. Optimum specimen types and timing for peak viral levels during infections caused by SARS-CoV-2 has not been determined. The possibility of a false negative result should especially be considered if the patient's recent exposures or clinical presentation suggest that SARS-CoV-2 infection is probable, and diagnostic tests for other causes of illness (e.g., other respiratory illness) are negative. Collection of a new specimen and re-testing may be necessary if the patient is critically ill or clinically deteriorating. Performed By: #### L [id number] #### [facility] (DEFAULT) [address] [place] [address] Comprehensive metabolic pane dominic 06-08-2020 Albumin [Mass/Vol] 4.5 g/dL 3.5 - 5 g/dL [facility] Alk Phos 48 U/L 24 - 126 U/L [facility] ALT [Catalytic activity/Vol] 19 U/L 4 - 35 U/L [facility] AST [Catalytic activity/Vol] 26 U/L 3 - 47 U/L [facility] Bilirubin [Mass/Vol] 0.3 mg/dL 0.2 - 1 .6 mg/dL [facility] Calcium [Mass/Vol] 9.9 mg/dL 8.4 - 10. 4 mg/dL [facility] Chloride [Moles/Vol] 106 mmol/L 96 - 10 9 mmol/L [facility] CO2 [Moles/Vol] 24 mmol/L 22 - 30 mmol/L [facility] Comprehensive metabolic 2000 panel 0.81 mg/dL 0.52 - 1.04 mg/dL [facility] Glucose [Mass/Vol] 94 mg/dL 65 - 100 mg/dL [facility] Interpretation and review of laboratory results Abnormal [facility] Potassium [Moles/Vol] 4.3 mmol/L 3.6 - 5.1 mmol/L [facility] Protein [Mass/Vol] 7.1 g/dL 6.3 - 8.2 g/dL [facility] Sodium [Moles/Vol] 139 mmol/L 135 - 147 mmol/L [facility] Urea nitrogen [Mass/Vol] 7 mg/dL Low 8 - 20 mg/dL [facility] GLOMERULAR FILTRATION RATEon 06-08-2020 GFR/1.73 sq M.predicted MDRD (S/P/Bld) [Vol rate/Area] mL/min/{1.73_m2} [facility] Comment on above: To estimate the GFR for Americans, multiply the result provided by 1.21. Population mean GFR = 116 ml/min/1.73 sq.m. for ages 18-29 yrs. The MDRD is validated in individuals 18-70 years of age. It is less accurate in patients with extremes of muscle mass, restriction of dietary protein, ingestion of creatine, extra-renal metabolism of creatinine, or treatment with medications that affect renal tubular creatinine secretion. GFR Categories in Chronic Kidney Disease (CKD) Category: GFR(mL/min/1.73m^2) Interpretation: G1* 90 or greater Normal or high G2* 60-89 Mild decrease G3a 45-59 Mild to moderate decrease G3b 30-44 Moderate to severe decrease G4 15-29 Severe decrease G5 14 or less Kidney failure *G1&G2: In the absence of evidence of kidney damage, neither GFR category G1 nor G2 fulfill the criteria for CKD Kidney Int Suppl.2013;3:1-150 Hemoglobin A1con 06-08-2020 HbA1c (Bld) [Mass fraction] 5.6 % 0 - 6 % [facility] Comment on above: Reference Interval f or %A1c %A1c (NGSP) Interpretation <6.0% Non-Diabetic Range >6.5% Action Suggested . TSHon 06-08-2020 TSH Qn 1.340 m[IU]/L [facility] Vitamin B12on 06-08-2020 Cobalamin (Vitamin B12) [Mass/Vol] 569 pg/mL 239 - 931 pg/mL [facility] Vitamin D 25 hydroxyon 06-08 25-Hydroxyvitamin D2+25-Hydroxyvitamin D3 [Mass/Vol] 48.0 ng/mL [facility] Comment on above: Reference Range: Deficiency: <20 ng/mL Insufficiency: 21-29 ng/mL Optimal Level: >=30 ng/mL Possible Toxicity: >80 ng/mL - 80 ng/mL is the lowest reported level associated with toxicity in patients without primary hyperthyroidism who have normal renal function. EMERGENCY DEPARTMENTon 11-27 EMERGENCY DEPARTMENT [place] [id number] HEALTH INFORMATION MANAGEMENT EMERGENCY DEPARTMENT : [phone] Signed Patient: DK PENA Acct:[id number] MRUN: [id number] : 1990 Sex: F Loc: ED ADM Date: Room/Bed: DISC Date: 11/05/19 ED Dental HPI - General Chief Complaint: Pain Stated Complaint: NECK/JAW/EAR PAIN Time Seen by Provider: 11/05/19 19:37 Nurses Notes Reviewed and Agreed With?: Yes Source: Patient Mode of Transport: Ambulatory - History of Present Illness Initial Comments: 21-year-old female presents today with left lower dental pain. She states she's been doing intermittently with this infection for approximately one year. States they did attempt appointment but could not get it out. States she has tunnel surgery follow-up at the end of the month. She denies any fevers or chills. No difficulty breathing or swallowing. No other concerns at this time. Location: lower, left Associated S/S: pain Pain severity: moderate Pain radiation: none Quality: sharp Consistency: constant Context: spontaneous onset, has dental appt scheduled Modifying factors: improves with: heat Treatment [employer]ER: no prearrival treatment - Related Data Home Medications: Home Medications Medication Instructions Recorded Confirmed Penicillin V Potassium 500 mg PO QID #28 tablet 08/18/19 Allergies/Adverse Reactions: Allergies Allergy/AdvReac Type Severity Reaction Status Date / Time nickel AdvReac Verified 08/18/19 23:33 Home medications and allergies reviewed: Yes Review of System - Constitutional Constitutional: Present: Well developed, Well nourished, Non-toxic - Nose,Throat,Mouth Nose (ROS): Absent: pain Throat: Absent: pain, swelling, discharge Mouth: Present: pain. Absent: swelling - Respiratory Respiratory: Absent: cough, short of breath, wheezing - CV Cardiology: Absent: chest pain, edema - GI Gastrointestinal/Abdomi nal: Absent: abdominal pain, diarrhea, nausea, vomiting - Genitourinary Symptoms: Absent: dysuria - Neuro Neurological: Absent: headache, weakness - Muskuloskeletal Musculoskeletal: Absent: back pain, joint pain, joint swelling - Integumentary Skin: Absent: lesions, rash - Allergic/Immunologic Immunological/Allergic: Present: no symptoms reported - Hematologic Hematologic/Lymphatic: Absent: easy bleeding, easy bruising, swollen glands - Endocrine Endocrine: Present: no symptoms reported - Psychiatric Psychiatric: Present: Normal Affect, Normal Mood. Absent: Depressed - All Others/Exceptions All Other Systems: Reviewed and Negative Except Where Noted in Documentation ED PMH/Social HX/Family HX - Respiratory Hx Respiratory Disorders: No - Cardiovascular Hx Cardiac Disorders: No - Neurological Hx Neurological Disorder: No - Endocrine Hx Endocrine Disorders: No - Gastrointestinal Hx Gastrointestinal Disorders: No - Genitourinary Hx Genitourinary Disorders: No - Musculoskeletal Hx Musculoskeletal Disorders: No - Reproductive ?: No Hx Reproductive Disorders: No - Psychological Hx Psychosocial Problems: No - HEENT Hx Ear, Nose Throat Disorders: No - Cancer Hx Cancer: No - Social History Able to Read: Yes Able to Write: Yes Smoking Status: Never Smoked Hx Chewing Tobacco Use: No - Brooks-Suicide Severity Rating Scale 1) Wish to be :: No 2) Suicidal Thoughts:: No 3) Suicidal Thoughts with Method (without specific plan or intent to act):: No 4) Suicidal Intent (WITHOUT Specific Plan):: No 5) Suicidal Intent (WITH Specific Plan):: No 6) Suicidal Behavior Question (A): LIFETIME: No 6) Suicidal Behavior Question (B): PAST 3 MONTHS: No Patient Safety Strategies Initiated?: No General Exam - General Limitations: Complains of: no limitations Constitutional: Present: Well developed, Well nourished, well hydrated, Non-toxic - Head Head exam: Present: atraumatic, normocephalic, normal inspection - Eye Eye exam: Present: normal apperance, normal accomodation, EOMI Pupils: Present: PERRL - ENT ENT exam: Present: normal orophraynx, mucous membranes moist, TMs clear w/ good light reflex, normal external ear exam, No Nasal Discharge, Posterior Pharynx Non-erethemetous - Expanded ENT Exam Ear exam: Present: normal external inspection Nose: Absent: tender, drainage Mouth exam: Present: normal external inspection Teeth exam: Present: dental caries, dental tenderness #, gingival enlargement. Absent: normal inspection, fractured tooth # ___ ___ 1 - ttp, no abscess Throat exam: normal inspection, uvula midline - Neck Neck exam: Present: full ROM, Supple. Absent: tenderness, meningismus, thyromegaly, Posterior Lymphadenopathy, Anterior Lymphadenopathy, midline deformity, anterior neck swelling, carotid bruit, tracheal deviation - Respiratory Respiratory exam: Present: lungs clear and equal bilaterally. Absent: respiratory distress, wheezes, rales, rhonchi, accessory muscle use - Cardiovascular Cardiovascular Exam: Present: regular rate, normal rhythm, normal heart sounds. Absent: murmur, rubs, gallop, clicks - GI/Abdominal GI/Abdominal exam: Present: soft, non tender, normal bowel sounds. Absent: guarding, rebound, rigid, mass, bruit - Extremities Exam Extremities exam: Present: normal inspection, full ROM, neurovascularly intact - Back Exam Back exam: Present: normal inspection, full ROM. Absent: tenderness - Neurological Exam Neurological exam: Present: alert, oriented X3, CN II-XII intact - Expanded Neurological Exam Patient oriented to: Present: person, place, time Speech: Present: fluid speech - Psychiatric Psychiatric exam: Present: normal affect, normal mood - Skin Skin Color: Present: Normal, [place] Skin exam: Present: warm, dry - Expanded Skin Exam Type of lesion: Absent: rash Dental MDM - Medical Decision Making Nontoxic afebrile patient no acute distress. Patient with left lower dental infection, no abscess or cellulitis. No airway obstruction. Patient be started on antibiotics. Instructed proper follow-up with dental. - Differential Diagnosis Dental DD: Considered: Alveolar fracture, Tooth avulsion, Tooth eruption, Tooth fracture, subluxation, Other, Alveolar osteritis, ANUG, Facial cellulitis, Periapical abscess, Periodontal abscess, Post-extraction bleeding, Pulpitis, Trigeminal neuralgia ED Discharge Summary - Discharge Data Clinical Impression: Dental infection, Pain, dental Condition: Good Disposition: 01 HOME, SELF-CARE Admit is Medically Necessary, Anticipated Stay >2 Midnights:: No Referrals: COLBY BLACK [Primary Care Provider] - Additional Instructions: FOLLOW UP WITH YOUR PCP OR THE BACK UP PHYSICIAN LISTED ON HOME GOING INSTRUCTIONS IF NOT FEELING BETTER IN 3 DAYS RETURN TO THE ED IF SYMPTOMS WORSEN OR ANY OTHER CONCERNS SWISH WITH FLUORIDE MOUTHWASH AND WATER THREE TIMES A DAY FOLLOW UP WITH A DENTIST OF YOUR CHOICE OR YOU MAY CALL ADOLFO DAVIS, [address] [phone] ANNA PENG, [address] [phone] [facility] [place] [address] The Dental Emergency Care Clinic at [facility] [employer] is a walk-in service available to adult patients 18 and over. Emergency care is provided by third and fourth year dental students under the supervision of [facility] faculty dentists. The Clinic is for adult patients, 18 and over, who are experiencing: [id number] pain that is not relieved by taking pain medications oral bleeding facial/oral swelling To become a patient of the [employer], call the Information Desk at [phone] (choose option 2) to set up an evaluation appointment. Emergency Patients younger than 18 should seek care at [facility] (walk-in hours are 9:00a.m. -11:00 a.m. and 1:00p.m.-3:00 p.m. ). for more information. Hours of Operation Friday - : 8:30 a.m. - 1:30 p.m. Limited to 30 patients Friday: 8:30 a.m. - 11:30 a.m. Limited to 20 patients OARRS Report Reviewed: No Home Medications: Ambulatory Orders Medication Instructions Recorded Penicillin V Potassium 500 mg PO QID #28 tablet 08/18/19 Home medications and allergies reviewed: Yes Time Seen by Provider: 11/05/19 19:37 Patient seen by Midlevel: Independently - Consultation I saw and examined the patient: Yes Nurses Notes Reviewed and Agreed With?: Yes - Dictation Amendments/Documentatio n: Intersect ENT Document Only Electronically Generated By: BRAD ESTES PA-C Generated Date/Time: 11/05/191942 Electronically Signed By: BRAD ESTES PA-C Signed Date/Time 11/10/19 1227 Co Signed Electronically By: Co Signed Date/Time: 11/27/1915711/27/19157 CC: COLBY BLACK Normal [facility] US BREAST UNILAT. COMPLETEon 11-19-2019 US BREAST UNILAT. COMPLETE EXAMINATION: TARGETED ULTRASOUND OF THE right BREAST 11/19/2019 TECHNIQUE: Targeted ultrasound of the right breast. COMPARISON: No prior exams. HISTORY: ORDERING SYSTEM PROVIDED HISTORY: RIGHT BREAST TENDERNESS FINDINGS: Multiple longitudinal and transverse scans were obtained through the right breast. There is marked dense residual fibroglandular tissue consistent with the patient's age. There is no evidence of cystic or solid mass lesions. IMPRESSION: Normal right breast ultrasound for the patient's age. BIRADS: BIRADS - CATEGORY 1 - Negative. Normal [facility] US BREAST UNILAT. COMPLETE EXAMINATION: TARGETED ULTRASOUND OF THE left BREAST 11/19/2019 TECHNIQUE: Targeted ultrasound of the left breast. COMPARISON: No prior exams. HISTORY: ORDERING SYSTEM PROVIDED HISTORY: LEFT BREAST TENDERNESS FINDINGS: Multiple longitudinal and transverse scans were obtained through the left breast in demonstrate moderate dense residual fibroglandular tissue consistent with the patient's age. There is a small 1 cm echo-free area with good through transmission consistent with a classic cyst at the 1 o'clock position and 1 cm from the nipple. Otherwise, there is no evidence of cystic or solid mass lesions. IMPRESSION: Normal dense fibroglandular tissue consistent with the patient's age. 1 cm simple cyst. BIRADS: BIRADS - CATEGORY 2 - Benign finding. Normal [facility] EMERGENCY DEPARTMENTon 11-09 EMERGENCY DEPARTMENT [facility] [address] [place] [address] HEALTH INFORMATION MANAGEMENT EMERGENCY DEPARTMENT : [id number] Signed Patient: DK PENA Acct:[id number] MRUN: [id number] : 1990 Sex: F Loc: ED ADM Date: Room/Bed: DISC Date: History of Present Illness - General Chief Complaint: Chest Pain Stated Complaint: CHEST PAIN JAW SWELLING CHILLS Symptom onset: TODAY HPI: PT C/O LEFT SIDED CHEST PAIN THAT RADIATES INTO LEFT NECK. Time Seen by Provider: 11/08/19 21:47 Mode of Transport: Ambulatory - History of Present Illness MD Complaint: chest pain (She is having a dental abscess x few days is under rx today she developed left sided chest pain so sh egot worried) - Related Data Home Medications Medication Instructions Recorded Confirmed Penicillin V Potassium 500 mg PO QID #28 tablet 08/18/19 11/06/19 Clindamycin HCl 300 mg PO TID #30 capsule 11/05/19 11/06/19 Naproxen [Naprosyn] 500 mg PO BID PRN #20 tablet 11/05/19 11/06/19 Allergies Allergy/AdvReac Type Severity Reaction Status Date / Time nickel AdvReac Verified 11/06/19 00:38 Review of System - Constitutional Constitutional: Present: Well developed, Well nourished, Non-toxic - Nose,Throat,Mouth Nose (ROS): Absent: pain Throat: Absent: pain, swelling, discharge Mouth: Absent: pain, swelling - Respiratory Respiratory: Absent: cough, short of breath, wheezing - CV Cardiology: Present: chest pain. Absent: edema - GI Gastrointestinal/Abdomi nal: Absent: abdominal pain, diarrhea, nausea, vomiting - Genitourinary Symptoms: Absent: dysuria - Neuro Neurological: Absent: headache, weakness - Muskuloskeletal Musculoskeletal: Absent: back pain, joint pain, joint swelling - Integumentary Skin: Absent: lesions, rash - Allergic/Immunologic Immunological/Allergic: Present: no symptoms reported - Hematologic Hematologic/Lymphatic: Absent: easy bleeding, easy bruising, swollen glands - Endocrine Endocrine: Present: no symptoms reported - Psychiatric Psychiatric: Present: Normal Affect, Normal Mood. Absent: Depressed - All Others/Exceptions All Other Systems: Reviewed and Negative Except Where Noted in Documentation ED PMH/Social HX/Family HX - Respiratory Hx Respiratory Disorders: No - Cardiovascular Hx Cardiac Disorders: No - Neurological Hx Neurological Disorder: No - Endocrine Hx Endocrine Disorders: No - Gastrointestinal Hx Gastrointestinal Disorders: No - Genitourinary Hx Genitourinary Disorders: No - Musculoskeletal Hx Musculoskeletal Disorders: No - Reproductive ?: No Hx Reproductive Disorders: No - Psychological Hx Psychosocial Problems: No - HEENT Hx Ear, Nose Throat Disorders: No - Cancer Hx Cancer: No - Social History Able to Read: Yes Able to Write: Yes Smoking Status: Never Smoked Hx Chewing Tobacco Use: No - Brooks-Suicide Severity Rating Scale 1) Wish to be :: No 2) Suicidal Thoughts:: No General Exam - General Limitations: Complains of: no limitations Constitutional: Present: Well developed, Well nourished, well hydrated, Non-toxic - Head Head exam: Present: atraumatic, normocephalic, normal inspection - Eye Eye exam: Present: normal apperance, normal accomodation, EOMI Pupils: Present: PERRL - ENT ENT exam: Present: normal orophraynx, mucous membranes moist, TMs clear w/ good light reflex, normal external ear exam, No Nasal Discharge, Posterior Pharynx Non-erethemetous - Expanded ENT Exam Ear exam: Present: normal external inspection Mouth exam: Present: normal external inspection Teeth exam: Present: normal inspection Throat exam: normal inspection - Neck Neck exam: Present: full ROM, Supple. Absent: tenderness, meningismus, Posterior Lymphadenopathy, Anterior Lymphadenopathy - Respiratory Respiratory exam: Present: lungs clear and equal bilaterally. Absent: respiratory distress, wheezes, rales, rhonchi, accessory muscle use - Cardiovascular Cardiovascular Exam: Present: regular rate, normal rhythm, normal heart sounds. Absent: murmur, rubs, gallop, clicks - GI/Abdominal GI/Abdominal exam: Present: soft, non tender, normal bowel sounds. Absent: guarding, rebound, rigid, mass, bruit - Extremities Exam Extremities exam: Present: normal inspection, full ROM, neurovascularly intact - Back Exam Back exam: Present: normal inspection, full ROM. Absent: tenderness - Neurological Exam Neurological exam: Present: alert, oriented X3, CN II-XII intact - Expanded Neurological Exam Patient oriented to: Present: person, place, time Speech: Present: fluid speech - Psychiatric Psychiatric exam: Present: normal affect, normal mood - Skin Skin Color: Present: Normal, [place] Skin exam: Present: warm, dry - Expanded Skin Exam Type of lesion: Absent: rash - Vital Signs Vital Signs 11/08/19 21:24 Temperature 98.1 F Pulse Rate [VS 85 Machine] Respiratory 16 Rate Blood Pressure 149/81 [Right Forearm] O2 Sat by Pulse 99 Oximetry(%) Chest Pain MDM - ROSE Risk Age =>65: (0) No 3 or more CAD Risk Factors: (0) No Known CAD: (0) No Aspirin use within the Past 7 Days: (0) No Angina =<24 hours: (0) No Elevated Cardiac Markers: (0) No ST Deviation Greater than 0.5mm: (0) No ROSE Score: 0 ROSE Interpretation: Low ROSE Risk Score (0-2) - Lab Data Orders: Labs 11/08/19 21:48 12-Lead per nursing [RC] STAT EKG [CAR] Stat Troponin i [CHM] Stat Ketorolac Tromethamine [Toradol 30 mg/ml Injection] 60 mg IM ONE ONE - EKG Data 1 Rhythm: NSR [place]/QRS: Normal Voltage: Normal Qtc: Normal QRS morphology: Normal QRS EKG: Rate, NSR, no ST T wave changes - Medical Decision Making Medical Decision Making: Differential diagnoses considered include but not limited to: Ac RI/ACS Angina stable Unstable Aortic Aneurysm CHF Pulmonary Edema Chest Wall pain GI Disease Lower Resp infection PE COURSE MEDICAL DECISION MAKING Old records were reviewed and incorporated into the HPI/PMH above. Pertinent Labs Imaging studies reviewed. (See chart for details). Differential diagnoses considered include but not limited to ACS, PE, TAD, pneumothorax, pneumonia, tamponade, esophageal rupture. The patient was STABLE at the time of discharge. Outpatient plan for follow up: I had my usual and customary chest pain discussion with the patient. ED Discharge Summary - Discharge Data Clinical Impression: Dental infection, Chest pain Condition: Fair Disposition: HOME, SELF-CARE Referrals: COLBY BLACK [Primary Care Provider] - Home Medications: Ambulatory Orders Medication Instructions Recorded Penicillin V Potassium 500 mg PO QID #28 tablet 08/18/19 Clindamycin HCl 300 mg PO TID #30 capsule 11/05/19 Naproxen [Naprosyn] 500 mg PO BID PRN #20 tablet 11/05/19 Time Seen by Provider: 11/08/19 21:47 - Consultation I saw and examined the patient: Yes Nurses Notes Reviewed and Agreed With?: Yes Electronically Generated By: NINI KIMBROUGH MD Generated Date/Time: 11/08/192148 Electronically Signed By: NINI KIMBROUGH MD Signed Date/Time 11/08/192226 Co Signed Electronically By: Co Signed Date/Time: CC: COLBY BLACK Normal [facility] Troponin ion 11-09-2019 Troponin I.cardiac [Mass/Vol] ng/mL Normal 0.000-0.056 [facility] Comment on above: Result Comment: myocardial injury. Clinical correlation required. >0.056 Troponin I interpretation: Troponin I present. Diagnostic possibilities include, but are not limited to, unstable angina, micro myocardial injury, early myocardial injury, cardiomyopathy or myocardial infarct. Clinical correlation required. NOTE-Troponin I testing performed on a Siemens Dimension analyzer which has a coefficient varient of <10 percent at the 99th percentile as recommended by 2014 AHA NSTE-ACS guidelines and the third universal definition of RI. The 2012 Third [place] Definition of RI defines a positive troponin as an elevation of the troponin I value above the 99th percentile of normal. Troponin I is the preferred biomarker overall and the only biomarker assessed for Chest Pain Accreditation purposes. Troponin I testing should be measured at presentation, and 3-6 hours after symptom onset in all patients presenting with ACS symptoms to identify a rising and/or falling pattern. NOTE-Dietary supplements containing high biotin levels may cause significant interference with affected lab tests, including cardiovascular diagnostic tests and hormone tests that use biotin technology. Incorrect test results may be generated if there is biotin in the patients specimen. Performed By: #### [facility] #### [address] [address] LEFT SHOULDER MIN 2Von 11-03 TSH Qn EXAMINATION: TWO XRAY VIEWS OF THE LEFT SHOULDER 11/03/2019 9:41 am COMPARISON: None. HISTORY: ORDERING SYSTEM PROVIDED HISTORY: LT SHOULDER PAIN FINDINGS: Three views left shoulder demonstrate normal alignment without evidence of fracture or subluxation. The left hemithorax appears normal. IMPRESSION: Normal left shoulder series. Normal [facility] EMERGENCY DEPARTMENTon 08-20 [address] [address] HEALTH INFORMATION MANAGEMENT EMERGENCY DEPARTMENT : [id number] Signed Patient: DK PENA Acct:[id number] MRUN: [id number] : 1990 Sex: F Loc: ED ADM Date: Room/Bed: DISC Date: 08/18/19 ED Dental HPI - General Chief Complaint: Dental Stated Complaint: TOOTH ABCESS Symptom onset: April HPI: Patient c/o dental pain. Patient states she has had a bad tooth for months. Pain increased today. Time Seen by Provider: 08/18/19 23:38 Nurses Notes Reviewed and Agreed With?: Yes Source: Patient, RN notes reviewed, Old records Mode of Transport: Ambulatory - History of Present Illness Location: lower, left, 2nd molar (12 year molar) -: month(s) Associated S/S: pain. denies: fever, chills, nasal congestion/drainage, sore throat Context: has dental appt scheduled Modifying factors: improves with: heat, cold, chewing Treatment [employer]: no prearrival treatment - Related Data Home Medications: Home Medications Medication Instructions Recorded Confirmed Penicillin V Potassium 500 mg PO QID #28 tablet 08/18/19 Allergies/Adverse Reactions: Allergies Allergy/AdvReac Type Severity Reaction Status Date / Time nickel AdvReac Verified 08/18/19 23:33 Review of System - Recent travel Recent travel outside [place] No reported travel outside [place] - Constitutional Constitutional: Present: see HPI, Well developed, Well nourished, well hydrated, Non-toxic - Nose,Throat,Mouth Nose (ROS): Absent: congestion Throat: Absent: pain Mouth: Present: pain - Respiratory Respiratory: Absent: cough - CV Cardiology: Absent: chest pain - GI Gastrointestinal/Abdomi nal: Absent: abdominal pain - Neuro Neurological: Absent: anxiety - Integumentary Skin: Absent: rash - Allergic/Immunologic Immunological/Allergic: Present: see HPI. Absent: food allergy - Psychiatric Psychiatric: Present: Normal Affect, Normal Mood ED PMH/Social HX/Family HX - Respiratory Hx Respiratory Disorders: No - Cardiovascular Hx Cardiac Disorders: No - Neurological Hx Neurological Disorder: No - Endocrine Hx Endocrine Disorders: No - Gastrointestinal Hx Gastrointestinal Disorders: No - Genitourinary Hx Genitourinary Disorders: No - Musculoskeletal Hx Musculoskeletal Disorders: No - Reproductive ?: No Hx Reproductive Disorders: No - Psychological Hx Psychosocial Problems: No - HEENT Hx Ear, Nose Throat Disorders: No - Cancer Hx Cancer: No - Social History Able to Read: Yes Able to Write: Yes Smoking Status: Never Smoked Hx Chewing Tobacco Use: No Alcohol Use: Never Any recreational drug use reported?: No Feels Threatened In Home Environment: No Feels Threatened In a Relationship: No - Brooks-Suicide Severity Rating Scale 1) Wish to be :: No 2) Suicidal Thoughts:: No 3) Suicidal Thoughts with Method (without specific plan or intent to act):: No 4) Suicidal Intent (WITHOUT Specific Plan):: No 5) Suicidal Intent (WITH Specific Plan):: No 6) Suicidal Behavior Question (A): LIFETIME: No 6) Suicidal Behavior Question (B): PAST 3 MONTHS: No Patient Safety Strategies Initiated?: No General Exam - Pertinent Findings MY PERTINENT FINDINGS ARE FOLLOWS:: MY PERTINENT FINDINGS ARE FOLLOWS: (Bonner alert and oriented nontoxic appearing female) - General Limitations: Complains of: no limitations. Denies: language barrier, altered mental status Constitutional: Present: see HPI, Well developed, Well nourished, well hydrated, Non-toxic - Head Head exam: Present: atraumatic, normocephalic - Eye Eye exam: Present: normal apperance, EOMI Pupils: Present: PERRL - ENT ENT exam: Present: normal orophraynx, mucous membranes moist, No Nasal Discharge, normal external ear exam, Posterior Pharynx Non-erethemetous - Expanded ENT Exam ___ ___ 1 - No obvious dental caries in this tooth however this is the tooth that is had some abscess and she is waiting to have the tooth extracted. Throat exam: normal inspection - Neck Neck exam: Present: Supple - Respiratory Respiratory exam: Absent: respiratory distress - Cardiovascular Cardiovascular Exam: Present: regular rate - Neurological Exam Neurological exam: Present: alert, oriented X3 - Psychiatric Psychiatric exam: Present: normal affect, normal mood - Skin Skin Color: Present: Normal, [place]. Absent: Rash Skin exam: Present: warm, dry - Vital Signs Vital Signs 08/18/19 23:18 Temperature 98.5 F Pulse Rate [ 93 Pulse Ox] Respiratory 16 Rate Blood Pressure 135/85 [Left Arm] O2 Sat by Pulse 99 Oximetry(%) Course - Reevaluation(s) Reevaluation #1: 08/19/19 22:01 Patient was given a dose of penicillin for the apical abscess. Plan is have her follow-up with her dentist. Dental MDM - Lab Data Orders: Penicillin V Potassium 500 mg PO QID #28 tablet 08/18/19 [Rx] Medications Discontinued Medications Penicillin V Potassium (Penicillin Vk 250 Mg Tablet) 500 mg PO STAT STA Stop: 08/18/19 23:47 Last Admin: 08/18/19 23:50 Dose: 500 mg Documented by: [email or web address] - Differential Diagnosis Dental DD: Considered: Periapical abscess, Periodontal abscess, Trigeminal neuralgia ED Discharge Summary - Discharge Data Clinical Impression: Pain, dental, Apical alveolar abscess Condition: Good Disposition: 01 HOME, SELF-CARE Referrals: THANG STAHL [Primary Care Provider] - Additional Instructions: follow up with dentist Home Medications: Ambulatory Orders Medication Instructions Recorded Penicillin V Potassium 500 mg PO QID #28 tablet 08/18/19 Time Seen by Provider: 08/18/19 23:38 Electronically Generated By: ZHAO SHEPHERD Generated Date/Time: 08/18/197 Electronically Signed By: ZHAO SHEPHERD Signed Date/Time 08/19/192201 Co Signed Electronically By: Co Signed Date/Time: CC: THANG STAHL Normal [facility] Hemoglobin A1Con 09-24-2018 Glucose mass conc 111 mg/dL Normal [facility] Comment on above: Performed By: #### L IPD2, HA1C2 ####[facility] HospitalOpen[facility] [place] [address] Hemoglobin A1c/Hemoglobin.total mass fraction (Bld) 5.5 % Normal 4.0-5.7 [facility] Comment on above: Result Comment: --Hg bA1C levels may not be accurate in patients who haverenal disease, received recent blood transfusions, are anemic,or who have dyshemoglobinemia. Performed By: #### L IPD2, HA1C2 ####[address] [place] [address] Lipid Panelon 09-24-2018 Cholesterol in HDL mass conc 39 mg/dL Low 40-60 [facility] Comment on above: Performed By: #### L IPD2, HA1C2 ####[address] [place] [address] Cholesterol mass conc 117 mg/dL Normal < 200 [facility] Comment on above: Performed By: #### L IPD2, HA1C2 ####[address] [place] [address] Cholesterol.total/Ch olesterol in HDL mass ratio 3 Normal [facility] Comment on above: Result Comment: Ref Range:< 3 Low Risk for CHD3-6 Mod Risk for CHD> 6 High Risk for CHD Performed By: #### L IPD2, HA1C2 ####[address] [place] [address] Protein mass conc 54 mg/dL Normal <100 [facility] Comment on above: Performed By: #### L IPD2, HA1C2 ####[facility] [id number] [place] [address] Triglyceride mass conc 120 mg/dL Normal <150 [facility] Comment on above: Performed By: #### L IPD2, HA1C2 ####[facility] [id number] [place] [address] Vital Signs Date Time Vital Sign Value Performing Clinician Facility 08-30-2024 13:03-0500 Body mass index (BMI) [Ratio] 23 kg/m2 Krislyn Aberegg PA Work Phone: [facility] 08-30-2024 13:03-0500 Body temperature 98.01 [degF] Krislyn Aberegg PA Work Phone: [facility] 08-30-2024 13:03-0500 Body weight 62.7 kg Krislyn Aberegg PA Work Phone: [facility] 08-30-2024 13:03-0500 Diastolic blood pressure 60 mm[Hg] Krislyn Aberegg PA Work Phone: [facility] 08-30-2024 13:03-0500 Heart rate 100 /min Krislyn Aberegg PA Work Phone: [facility] 08-30-2024 13:03-0500 Respiratory rate 16 /min Krislyn Aberegg PA Work Phone: [facility] 08-30-2024 13:03-0500 SaO2% (BldA) [Mass fraction] 98 % Krislyn Aberegg PA Work Phone: [facility] 08-30-2024 13:03-0500 Systolic blood pressure 94 mm[Hg] Krislyn Aberegg PA Work Phone: [facility] 05-29-2024 09:59-0400 Body mass index (BMI) [Ratio] 23.48 kg/m2 Willy Mckeon MD Work Phone: [facility] 05-29-2024 09:59-0400 Body temperature 97.81 [degF] Willy Mckeon MD Work Phone: [facility] 05-29-2024 09:59-0400 Body weight 64 kg Willy Mckeon MD Work Phone: [facility] 05-29-2024 09:59-0400 Diastolic blood pressure 68 mm[Hg] Willy Mckeon MD Work Phone: [facility] 05-29-2024 09:59-0400 Heart rate 63 /min Willy Mckeon MD Work Phone: [facility] 05-29-2024 09:59-0400 Respiratory rate 14 /min Willy Mckeon MD Work Phone: [facility] 05-29-2024 09:59-0400 Systolic blood pressure 122 mm[Hg] Willy Mckeon MD Work Phone: [facility] 12-08-2023 07:18-0500 Body temperature 97.7 [degF] Asia Athy PA-C Work Phone: [facility] 12-08-2023 07:18-0500 Body weight 72.58 kg Asia Athy PA-C Work Phone: [facility] 12-08-2023 07:18-0500 Diastolic blood pressure 68 mm[Hg] Asia Athy PA-C Work Phone: [facility] 12-08-2023 07:18-0500 Heart rate 82 /min Asia Athy PA-C Work Phone: [facility] 12-08-2023 07:18-0500 Respiratory rate 16 /min Asia Athy PA-C Work Phone: [facility] 12-08-2023 07:18-0500 SaO2% (BldA) [Mass fraction] 99 % Asia Athy PA-C Work Phone: [facility] 12-08-2023 07:18-0500 Systolic blood pressure 122 mm[Hg] Asia Athy PA-C Work Phone: [facility] 11-28-2023 13:49-0500 Body temperature 97.9 [degF] Que Pendlebury DETAILER.HAT MENDER Work Phone: [facility] 11-28-2023 13:49-0500 Body weight 72.12 kg Que Pendlebury DETAILER.HAT MENDER Work Phone: [facility] 11-28-2023 13:49-0500 Diastolic blood pressure 71 mm[Hg] Que Pendlebury DETAILER.HAT MENDER Work Phone: [facility] 11-28-2023 13:49-0500 Heart rate 77 /min Que Pendlebury DETAILER.HAT MENDER Work Phone: [facility] 11-28-2023 13:49-0500 Respiratory rate 18 /min Que Pendlebury DETAILER.HAT MENDER Work Phone: [facility] 11-28-2023 13:49-0500 SaO2% (BldA) [Mass fraction] 100 % Que Pendlebury DETAILER.HAT MENDER Work Phone: [facility] 11-28-2023 13:49-0500 Systolic blood pressure 110 mm[Hg] Que Pendlebury DETAILER.HAT MENDER Work Phone: [facility] 07-18-2023 08:11-0400 Body temperature 98.01 [degF] Mary Praisler-Wood DETAILER.HAT MENDER Work Phone: [facility] 07-18-2023 08:11-0400 Body weight 75.84 kg Mary Praisler-Wood DETAILER.HAT MENDER Work Phone: [facility] 07-18-2023 08:11-0400 Diastolic blood pressure 79 mm[Hg] Mary Praisler-Wood DETAILER.HAT MENDER Work Phone: [facility] 07-18-2023 08:11-0400 Heart rate 88 /min Mary Praisler-Wood DETAILER.HAT MENDER Work Phone: [facility] 07-18-2023 08:11-0400 Respiratory rate 18 /min Mary Praisler-Wood DETAILER.HAT MENDER Work Phone: [facility] 07-18-2023 08:11-0400 SaO2% (BldA) [Mass fraction] 99 % Mary Praisler-Wood DETAILER.HAT MENDER Work Phone: [facility] 07-18-2023 08:11-0400 Systolic blood pressure 119 mm[Hg] Mary Praisler-Wood DETAILER.HAT MENDER Work Phone: [facility] 01-16-2023 14:33-0400 Body temperature 97.81 [degF] Asia Athy PA-C Work Phone: [facility] 01-16-2023 14:33-0400 Body weight 75.03 kg Asia Athy PA-C Work Phone: [facility] 01-16-2023 14:33-0400 Diastolic blood pressure 64 mm[Hg] Asia Athy PA-C Work Phone: [facility] 01-16-2023 14:33-0400 Heart rate 62 /min Asia Athy PA-C Work Phone: [facility] 01-16-2023 14:33-0400 Respiratory rate 16 /min Asia Athy PA-C Work Phone: [facility] 01-16-2023 14:33-0400 SaO2% (BldA) [Mass fraction] 97 % Asia Athy PA-C Work Phone: [facility] 01-16-2023 14:33-0400 Systolic blood pressure 122 mm[Hg] Asia Athy PA-C Work Phone: [facility] 11-30-2022 10:56-0500 Body temperature 98.6 [degF] Asia Athy PA-C Work Phone: [facility] 11-30-2022 10:56-0500 Body weight 74.03 kg Asia Athy PA-C Work Phone: [facility] 11-30-2022 10:56-0500 Diastolic blood pressure 86 mm[Hg] Asia Athy PA-C Work Phone: [facility] 11-30-2022 10:56-0500 Heart rate 57 /min Asia Athy PA-C Work Phone: [facility] 11-30-2022 10:56-0500 Respiratory rate 18 /min Asia Ghaday PA-C Work Phone: [facility] 11-30-2022 10:56-0500 SaO2% (BldA) [Mass fraction] 98 % Asiafish Urrutiay PA-C Work Phone: [facility] 11-30-2022 10:56-0500 Systolic blood pressure 128 mm[Hg] Asia Ghaday PA-C Work Phone: [facility] 09-09-2022 09:56-0500 Body temperature 98.4 [degF] Alex Cota DETAILER.HAT MENDER Work Phone: [facility] 09-09-2022 09:56-0500 Body weight 74.57 kg Alex Cota DETAILER.HAT MENDER Work Phone: [facility] 09-09-2022 09:56-0500 Diastolic blood pressure 84 mm[Hg] Alex Cipriano DETAILER.HAT MENDER Work Phone: [facility] 09-09-2022 09:56-0500 Heart rate 104 /min Alex Cipriano DETAILER.HAT MENDER Work Phone: [facility] 09-09-2022 09:56-0500 Respiratory rate 20 /min Alex Cipriano DETAILER.HAT MENDER Work Phone: [facility] 09-09-2022 09:56-0500 SaO2% (BldA) [Mass fraction] 98 % Alex Cipriano DETAILER.HAT MENDER Work Phone: [facility] 09-09-2022 09:56-0500 Systolic blood pressure 110 mm[Hg] Alex Cipriano DETAILER.HAT MENDER Work Phone: [facility] 06-11-2022 13:13-0400 Body temperature 98.8 [degF] Little David DETAILER.HAT MENDER Work Phone: [facility] 06-11-2022 13:13-0400 Body weight 78.02 kg Little David DETAILER.HAT MENDER Work Phone: [facility] 06-11-2022 13:13-0400 Diastolic blood pressure 74 mm[Hg] Little David DETAILER.HAT MENDER Work Phone: [facility] 06-11-2022 13:13-0400 Heart rate 100 /min Little David DETAILER.HAT MENDER Work Phone: [facility] 06-11-2022 13:13-0400 Respiratory rate 16 /min Little David DETAILER.HAT MENDER Work Phone: [facility] 06-11-2022 13:13-0400 SaO2% (BldA) [Mass fraction] 97 % Little David DETAILER.HAT MENDER Work Phone: [facility] 06-11-2022 13:13-0400 Systolic blood pressure 136 mm[Hg] Little David DETAILER.HAT MENDER Work Phone: [facility] 11-16-2019 13:51-0500 BMI (Body Mass Index) 31.28 kg/m2 [facility] 11-16-2019 13:51-0500 Body Temperature 98.4 [degF] [facility] 11-16-2019 13:51-0500 Body weight 85.28 kg [facility] 11-16-2019 13:51-0500 BP Diastolic 74 mm[Hg] [facility] 11-16-2019 13:51-0500 BP Systolic 102 mm[Hg] [facility] 11-16-2019 13:51-0500 Height 165.1 cm [facility] 11-16-2019 13:51-0500 Pulse (Heart Rate) 98 /min [facility] 11-16-2019 13:51-0500 Pulse Oximetry 98 % [facility] 11-15-2019 14:51-0500 BMI (Body Mass Index) 31.05 kg/m2 Julieta [place] [facility] 11-15-2019 14:51-0500 Body weight 84.64 kg Julieta Jake [facility] 11-15-2019 14:51-0500 BP Diastolic 80 mm[Hg] [facility] 11-15-2019 14:51-0500 BP Systolic 128 mm[Hg] Julieta [facility] 11-15-2019 14:51-0500 Height 165.1 cm [facility] blur [facility] Encounters Encounter Date Encounter Type Care Provider Facility Start: 03-29-2025 ambulatory Jaci Viviana Facility :[facility] Start: 03-23-2025 End: 03-23-2025 Emergency department patient visit ROXY DE LOS SANTOS DO [facility] Start: 03-18-2025 End: 03-18-2025 ambulatory Vinay TAPIA Facility:[facility] Start: 03-15-2025 End: 03-15-2025 ambulatory Jaci Viviana Facility:[facility] Start: 02-22-2025 End: 02-22-2025 ambulatory Jaci Viviana Facility:[facility] Start: 02-16-2025 End: 02-16-2025 ambulatory Jaci Viviana Facility:[facility] Start: 02-16-2025 End: 02-16-2025 ambulatory Jaci Viviana Facility:[facility] Start: 02-03-2025 End: 03-04-2025 ambulatory Jaci Viviana Facility:[facility] Start: 01-27-2025 End: 01-27-2025 ambulatory No Primary Care Physician Facility:[facility] Start: 01-27-2025 End: 01-27-2025 ambulatory Jaci Viviana Facility:[facility] Start: 01-13-2025 End: 02-02-2025 ambulatory No Primary Care Physician Facility:[facility] Start: 01-12-2025 End: 01-12-2025 ambulatory No Primary Care Physician Facility:[facility] Start: 01-04-2025 End: 01-05-2025 ambulatory No Primary Care Physician Facility:[facility] Start: 12-30-2024 End: 12-30-2024 ambulatory No Primary Care Physician Facility:[facility] Start: 12-06-2024 End: 01-03-2025 ambulatory No Primary Care Physician Facility:[facility] Start: 11-18-2024 End: 12-03-2024 ambulatory No Primary Care Physician Facility:[facility] Start: 11-16-2024 End: 11-16-2024 ambulatory Edmondwatson Canadaullo Facility:[facility] Start: 11-13-2024 End: 11-13-2024 Emergency department patient visit No Primary Care Physician Facility:[facility] Start: 09-03-2024 End: 09-03-2024 Telephone encounter Mary Comer APRN.CNP Work Phone: [facility] Comment on above: Results Start: 08-30-2024 End: 08-30-2024 Patient encounter procedure Artemio TAPIA Work Phone: [facility] Comment on above: Sore throat (Primary Dx); Sore in nose; Fever, unspecified fever cause Start: 08-30-2024 End: 08-30-2024 ambulatory [facility] Start: 08-13-2024 End: 08-13-2024 ambulatory Edmondwatson [place] Facility:[facility] Start: 08-05-2024 End: 08-05-2024 ambulatory Edmond Dreadullo Facility:[facility] Start: 08-05-2024 End: 08-05-2024 ambulatory BRANDON SLAUGHTER Facility:[facility] Start: 07-12-2024 ambulatory Edmondwatson [place] Facility: [facility] Start: 07-12-2024 ambulatory PARIS Hidalgo [facility] Start: 06-17-2024 End: 06-17-2024 ambulatory Edmond Ferullo Facility:[facility] Start: 05-29-2024 End: 05-29-2024 ambulatory [facility] Start: 05-29-2024 End: 05-29-2024 Office outpatient visit 25 minutes Willy Mckeon MD Work Phone: [facility] Comment on above: Rash (Primary Dx) Start: 05-11-2024 End: 05-11-2024 [facility] Start: 04-30-2024 End: 04-30-2024 ambulatory Edmond Arrieta Facility:[facility] Start: 12-31-2023 ambulatory Facility:[facility] Start: 12-08-2023 End: 12-08-2023 ambulatory [facility] Start: 12-08-2023 End: 12-08-2023 Patient encounter procedure Asia Blair PA-C Work Phone: [facility] Comment on above: Acute pharyngitis, u nspecified etiology (Primary Dx) Start: 11-28-2023 End: 11-28-2023 ambulatory [facility] Start: 11-28-2023 End: 11-28-2023 Office outpatient visit 15 minutes [facility] DETAILER.HAT MENDER Work Phone: [facility] Comment on above: Sore throat (Primary Dx) Start: 07-18-2023 End: 07-18-2023 Patient encounter procedure Mary Comer APRN.HAT MENDER Work Phone: [facility] Comment on above: Upper respiratory vi nanda (Primary Dx) Start: 01-17-2023 Telephone encounter Asia ceballos PA-C Work Phone: [facility] Comment on above: Results Start: 01-16-2023 End: 01-16-2023 Patient encounter procedure Asia Blair PA-C Work Phone: [facility] Comment on above: Acute vaginitis (Shiloh rudi Dx) Start: 11-30-2022 End: 11-30-2022 Patient encounter procedure Asia Blair PA-C Work Phone: [facility] Comment on above: Throat pain (Primary Dx); Viral URI with cough Start: 09-09-2022 End: 09-09-2022 Patient encounter procedure Alex Cota DETAILER.HAT MENDER Work Phone: [facility] Comment on above: URI, acute (Primary Dx) Start: 06-11-2022 End: 06-11-2022 Patient encounter procedure Little Hernandez CHELE.STEPHEN Work Phone: [facility] Comment on above: Exposure to COVID-19 virus (Primary Dx); Sore throat; Body aches; Fever, unspecified fever cause Start: 02-08-2022 End: 02-08-2022 Subsequent hospital visit by physician Paris Mccann APRN Work Phone: [facility] Comment on above: Elevated liver enzym es Start: 01-04-2022 End: 01-04-2022 Subsequent hospital visit by physician Paris Mccann APRN Work Phone: [facility] Comment on above: Fatigue, unspecified type Start: 06-08-2020 End: 06-08-2020 Subsequent hospital visit by physician Paris Mccann Work Phone: [facility] Comment on above: Fatigue, unspecified type; Hyperglycemia Start: 11-16-2019 End: 11-16-2019 Office outpatient visit 15 minutes Paris Mccann Work Phone: [facility] Comment on above: Bilateral hearing lo ss, unspecified hearing loss type (Primary Dx); BMI 31.0-31.9,adult; Encounter for smoking cessation counseling Start: 11-15-2019 End: 11-15-2019 Subsequent hospital visit by physician Julieta Joseph Work Phone: [facility] Start: 11-15-2019 End: 11-15-2019 Periodic preventive med est patient 18-39 yrs Julieta Joseph Work Phone: [facility] Comment on above: Encounter for well w luis daniel exam with routine gynecological exam (Primary Dx); Smoker; Screening for STD (sexually transmitted disease); Negative test; Breast tenderness in female; Dense breast tissue; BMI 31.0-31.9,adult Start: 11-08-2019 End: 11-08-2019 Patient encounter procedure Sana Salter [facility] Start: 11-04-2019 End: 11-04-2019 Letter encounter Paulina Corrales [facility] Start: 11-03-2019 End: 11-03-2019 Telephone encounter Paulina Corrales [facility] Comment on above: Results Start: 05-28-2017 End: 05-28-2017 Emergency department patient visit ZACKARY K SEWELL Facility:[facility] Procedures Date Procedure Procedure Detail Performing Clinician Start: 08-30-2024 STREP A MOLECULAR (POC) Asia Blair PA-C Work Phone: Start: 11-28-2023 STREP A MOLECULAR (POC) Que Alston APRN.HAT MENDER Work Phone: Start: 01-16-2023 BACTERIAL VAGINOSIS AMPLIFICATION Asiafish Blair PA-C Work Phone: Start: 11-30-2022 STREP A MOLECULAR (POC) Kourtney Freeman DETAILER.HAT MENDER Work Phone: Start: 02-08-2022 Adult depression scr eening assessment Paris Baez-Sharrer DETAILER Work Phone: Start: 01-04-2022 CBC W Auto Different ial panel - Blood Apris Sasha-Connerrer DETAILER Work Phone: Start: 01-04-2022 Comprehensive metabo lic panel Paris Baez-Sharrer DETAILER Work Phone: Start: 01-04-2022 GLOMERULAR FILTRATION RATE Paris Baez-Sharrer DETAILER Work Phone: Start: 01-04-2022 Adult depression scr eening assessment Paris Baez-Sharrer DETAILER Work Phone: Start: 06-08-2020 25 hydroxy includes fractions if performed Paris Baez-Travis Work Phone: Start: 06-08-2020 Assay of thyroid stimulating hormone tsh Paris Baez-Connerreparveen Work Phone: Start: 06-08-2020 Comprehensive metabo lic panel Paris Mccann Work Phone: Start: 06-08-2020 Cyanocobalamin vitamin b-12 Paris Mccann Work Phone: Start: 06-08-2020 GLOMERULAR FILTRATION RATE Paris Mccann Work Phone: Start: 06-08-2020 Hemoglobin A1c/Hemoglobin.total in Blood Paris Raydemetri Work Phone: Start: 06-08-2020 Adult depression scr eening assessment Paris Mccann Start: 11-16-2019 Adult depression scr eening assessment Paris Mccann Start: 11-15-2019 Adult depression scr eening assessment Julieta [place] Start: 11-15-2019 Microscopic observat ion [Identifier] in Cervix by Cyto stain Paris BaezDonnyConnerdemetri Start: 11-03-2019 Adult depression scr eening assessment Paulina Corrales Plan of Treatment Date Care Activity Detail Author Start: 11-20-2032 Urine microalbumin profile DTaP,Tdap,Td Vaccine (3 - Td or Tdap) [facility] Start: 05-07-2027 Administration of diphtheria + tetanus + acellular pertussis vaccine DTAP/TDAP/TD VACCINE (2 - Td or Tdap) [facility] Start: 04-13-2025 ambulatory Ambulatory Facility:[facility] Start: 11-15-2024 Screening for malign ant neoplasm of cervix PAP SMEAR [facility] Start: 08-30-2024 End: 11-29-2024 Bacteria identified in Wound by Culture ABSCESS AND WOUND CULTURE WITH GRAM STAIN Microbiology Routine Sore in nose Expected: 08/30/2024, Expires: 11/29/2024 [facility] Work Phone: Comment on above: Expected: 08/30/2024 , Expires: 11/29/2024 Start: 06-06-2024 Covid-19 Vaccine () Covid-19 Vaccine () [facility] Start: 06-06-2024 Influenza vaccination Influenza Vacc ine (#1) [facility] Start: 11-28-2023 End: 02-27-2024 Heterophile Ab [Presence] in Serum by Latex agglutination [facility] Work Phone: Comment on above: Expected: 11/28/2023 , Expires: 02/27/2024 Start: 10-06-2023 Depression Assessment Depression Ass [facility] Start: 06-06-2023 Covid-19 Vaccine () Covid-19 Vaccine () [facility] Start: 06-06-2023 Influenza vaccination [facility] Start: 02-08-2023 COVID-19 VACCINE (3 - Booster for Pfizer series) COVID-19 VACCINE (3 - Booster for Pfizer series) [facility] Comment on above: Postponed from 08/23 (Patient Declined) Start: 02-08-2023 Depression screening using PHQ-9 (Patient Health Questionnaire 9) score DEPRESSION SCREENING [facility] Start: 11-30-2022 End: 12-14-2022 Influenza virus A and B RNA and SARS-CoV-2 (COVID-19) N gene panel - Respiratory specimen by RUDDY with probe detection COVID WITH FLUA+B, ROUTINE Microbiology Routine Throat pain Expected: 11/30/2022, Expires: 12/14/2022 [facility] Work Phone: Comment on above: Expected: 11/30/2022 , Expires: 12/14/2022 Start: 11-15-2022 Human papilloma viru s screening PAP SMEAR [facility] Start: 10-06-2022 DEPRESSION ASSESSMENT [facility] Start: 09-23-2022 End: 09-23-2022 Patient encounter procedure 09/23/2022 Office Visit Dentistry Feli Castelan [facility] Start: 08-16-2022 End: 08-16-2022 Patient encounter procedure 08/16/2022 Office Visit Family Medicine Paris Mccann, DETAILER [address] [place] [address] [facility] Start: 06-11-2022 End: 06-25-2022 Influenza virus A and B RNA and SARS-CoV-2 (COVID-19) N gene panel - Respiratory specimen by RUDDY with probe detection COVID WITH FLUA+B, ROUTINE Microbiology Routine Exposure to COVID-19 virus Sore throat Body aches Fever, unspecified fever cause Expected: 06/11/2022, Expires: 06/25/2022 [facility] Work Phone: Comment on above: Expected: 06/11/2022 , Expires: 06/25/2022 Start: 06-06-2022 Influenza vaccination INFLUENZA (#1) [facility] Start: 02-27-2022 End: 02-27-2022 Telemedicine consultation with patient 02/27/2022 Telemedicine Health Mckinley Lopez PA [address] [place] [address] [facility] Start: 02-07-2022 PAP TESTING PAP TESTING [facility] Start: 02-07-2022 Screening for malign ant neoplasm of cervix Pap Testing [facility] Start: 02-01-2022 End: 02-01-2022 Telemedicine consultation with patient 02/01/2022 Telemedicine Family Medicine Sasha-Paris Robles, CHE[address] [place] [address] [facility] Start: 01-21-2022 End: 01-21-2022 Telemedicine consultation with patient 01/21/2022 Telemedicine [facility] Mckinley Lopez PA [address] [place] [address] [facility] Start: 10-06-2021 DEPRESSION ASSESSMENT DEPRESSION ASS ESSMENT [facility] Start: 08-23-2021 COVID-19 VACCINE (3 - Booster for Pfizer series) COVID-19 VACCINE (3 - Booster for Pfizer series) [facility] Start: 06-08-2021 Adult depression screening assessment DEPRESSION SCREENING [facility] Start: 05-18-2021 COVID-19 VACCINE (3 - Booster for Pfizer series) COVID-19 VACCINE (3 - Booster for Pfizer series) [facility] Start: 2021 HPV TESTING HPV TESTING [facility] Start: 2021 Screening for malign ant neoplasm of cervix HPV Testing [facility] Start: 11-20-2020 End: 11-20-2020 Office Visit [facility] Start: 11-15-2020 Adult depression screening assessment DEPRESSION SCREENING [facility] Start: 11-15-2020 ANNUAL WELLNESS VISIT ANNUAL WELLNES S VISIT [facility] Start: 11-03-2020 Adult depression screening assessment DEPRESSION SCREENING [facility] Start: 09-07-2020 End: 09-07-2020 Office Visit 09/07/2020 Office Visit Family Medicine Paris Mccann APRN [address] [place] [address] [phone] [facility] Start: 08-14-2020 End: 08-14-2020 Office Visit 08/14/2020 Office Visit Dentistry Feli Castelan [facility] Start: 06-21-2020 End: 06-21-2020 Office Visit 06/21/2020 Office Visit Dentistry Nasrin Somers, DDS [address] [place] [address] [phone] [facility] Start: 06-06-2020 Influenza vaccinatio n given INFLUENZA VACCINE (#1) [facility] Start: 02-08-2020 Screening for malign ant neoplasm of cervix Cervical Cancer Screening [facility] Start: 02-02-2020 End: 02-02-2020 Office Visit 02/02/2020 Office Visit Family Medicine Paris Mccann APRN [address] [place] [address] [phone] [facility] Start: 12-06-2019 End: 12-06-2019 Office Visit 12/06/2019 Office Visit Obstetrics and Gynecology Julieta Joseph, CHELE [facility] MENDER [address] [place] [address] [phone] [facility] Start: 11-16-2019 End: 11-16-2019 Office Visit [facility] Start: 11-08-2019 End: 11-08-2019 Office Visit 11/08/2019 Office Visit Orthopedic Surgery Jasmyn Starkey PA [address] [place] [address] [phone] [facility] Start: 06-06-2019 Influenza vaccinatio n given INFLUENZA VACCINE (#1) [facility] Start: 2012 Human papilloma viru s screening PAP SMEAR [facility] Start: 2012 Tetanus, diphtheria and acellular pertussis vaccination TDAP/TD ADULT [facility] Start: 2010 Hepatitis B Vaccine (1 of 3 - 19+ 3-dose series) Hepatitis B Vaccine (1 of 3 - 19+ 3-dose series) [facility] Start: 2010 Urine microalbumin profile [facility] Start: 2009 ANNUAL WELLNESS VISIT ANNUAL WELLNES S VISIT [facility] Start: 2009 Anxiety Screening Anxiety Screening [facility] Start: 2009 Depression Screening Depression Scre ening [facility] Start: 2009 HEPATITIS C SCREENING HEPATITIS C [facility] Start: 2009 Hepatitis C screening Hepatitis C [facility] Start: 2003 Adult depression screening assessment DEPRESSION SCREENING [facility] Start: 2003 Depression screening using PHQ-9 (Patient Health Questionnaire 9) score DEPRESSION SCREENING [facility] Start: 2002 Diphtheria + pertuss is + tetanus vaccine (product) DTAP/TDAP/TD VACCINE (1 - Tdap) [facility] Start: 1997 PNEUMOCOCCAL (1 - PCV) PNEUMOCOCCAL (1 - PCV) [facility] Start: 1991 HEPATITIS B (1 of 3 - 3-dose series) HEPATITIS B (1 of 3 - 3-dose series) [facility] Start: 1991 Hepatitis B Vaccine (1 of 3 - 3-dose series) Hepatitis B Vaccine (1 of 3 - 3-dose series) [facility] ALLI / TRICHOMONA S AMPLIFICATION ALLI / TRICHOMONAS AMPLIFICATION Microbiology Routine Acute vaginitis 01/16/2023 5:41 PM EDT [facility] Work Phone: End: 12-13-2020 Chlamydia trachomatis+Neisseria gonorrhoeae rRNA [Presence] in Cervix by Probe GC & Chlamydia Amplified Probe Microbiology Routine Screening for STD (sexually transmitted disease) 1 Occurrences starting 11/15/2019 until 12/13/2020 [employer] Comment on above: 1 Occurrences starti ng 11/15/2019 until 12/13/2020 End: 02-08-2022 Hepatic function 2000 panel - Serum or Plasma Hepatic function panel Lab Routine Elevated liver enzymes 1 Occurrences starting 02/08/2022 until 02/08/2022 [facility] Work Phone: Comment on above: 1 Occurrences starti ng 02/08/2022 until 02/08/2022 Influenza virus A an d B RNA and SARS-CoV-2 (COVID-19) N gene panel - Respiratory specimen by RUDDY with probe detection COVID WITH FLUA+B, ROUTINE Microbiology Routine URI, acute 09/09/2022 10:51 AM EST [facility] Work Phone: End: 12-13-2020 Microscopic observation Cyto stain Nom (Cvx) Pap Smear (Lina) Lab Routine Encounter for well woman exam with routine gynecological exam 1 Occurrences starting 11/15/2019 until 12/13/2020 [employer] Comment on above: 1 Occurrences starti ng 11/15/2019 until 12/13/2020 POCT Urine POCT Urine Point of Care Testing Routine Encounter for well woman exam with routine gynecological exam Ordered: 11/15/2019 [employer] Comment on above: Ordered: 11/15/2019 End: 12-13-2020 Trichomonas Amplified Probe Trichomonas Amplified Probe Microbiology Routine Screening for STD (sexually transmitted disease) 1 Occurrences starting 11/15/2019 until 12/13/2020 [employer] Comment on above: 1 Occurrences starti ng 11/15/2019 until 12/13/2020 End: 12-13-2020 US Breast Bilateral Complete US Breast Bilateral Complete Imaging Routine Breast tenderness in female Dense breast tissue 1 Occurrences starting 11/15/2019 until 12/13/2020 [employer] Comment on above: 1 Occurrences starti ng 11/15/2019 until 12/13/2020 [facility] Immunizations Immunization Date Immunization Notes Care Provider Jaleel quinnlizz 05-07-2017 tetanus toxoid, redu lalo diphtheria toxoid, and acellular pertussis vaccine, adsorbed Paris Mccann APRN Work Phone: [facility] Payers Date Payer Category Payer Private Health Insurance [id number] 2025 Unknown [id number] 2025 Unknown [id number] 2025 Unknown [id number] 2024 Medicare [id number] 2024 Self-pay 2022 Unknown [id number] 2019 Medicaid [facility] [id number] 2019-Present [phone] [place] [address] Medicaid [id number] 2019 Medicaid [id number]. [id number] 2003 Medicaid [id number] [id number]. [id number] 1991 Unknown [id number] 2.16.840.1.655323.3.579.2. 627 1991 Unknown [id number] 2.16.840.1.925758.3.579.2. 297 1991 Unknown [id number] 2.16.840.1.646542.3.579.2. 297 Unknown [id number] 2.16.840.1.111179.3.579.2. 462 Unknown [id number] 2.16.840.1.675940.3.579.2. 462 Unknown [id number] 2.16.840.1.840887.3.579.2. 462 Unknown [id number] 2.16840.1.533652.3.579.2. 462 Unknown [id number] 2.16840.1.030018.3.579.2. 462 Unknown [id number] 2.840.1.218010.3.579.2. 462 Unknown [id number] 2.840.1.160535.3.579.2. 462 Unknown [id number] 2.840.1.180707.3.579.2. 462 Unknown [id number] 2.840.1.336284.3.579.2. 462 Unknown [id number] 2.840.1.556115.3.579.2. 462 Unknown [id number] 2.840.1.872149.3.579.2. 462 Unknown [id number] 2.840.1.988944.3.579.2. 462 Unknown [id number] 2.840.1.003872.3.579.2. 462 Unknown [id number] 2.840.1.379696.3.579.2. 462 Unknown [id number] 2.840.1.946389.3.579.2. 462 Unknown [id number] 2.840.1.778482.3.579.2. 462 Unknown [id number] 2.840.1.342464.3.579.2. 462 Unknown [id number] 2.840.1.353636.3.579.2. 462 Unknown [id number] 2.840.1.009348.3.579.2. 462 Unknown [id number] 2.840.1.589969.3.579.2. 462 Unknown [id number] 2.16840.1.175816.3.579.2. 462 Unknown [id number] 2.16.840.1.158665.3.579.2. 462 Unknown [id number] 2.16.840.1.493633.3.579.2. 462 Unknown [id number] 2.16.840.1.951494.3.579.2. 462 Unknown [id number] 2.16840.1.740013.3.579.2. 462 Unknown [id number] 2.16.840.1.333214.3.579.2. 462 Social History Date Type Detail Facility Start: 11-03-2019 End: 06-11-2022 Tobacco smoking status COIS Current every day smoker [facility] History of tobacco use Cigarette Smoker [facility] Start: 11-03-2019 End: 02-08-2022 Alcohol intake Ex-drinker (finding) [facility] Start: 1990 Sex Assigned At Not on file [facility] Start: 06-08-2020 End: 06-11-2022 Tobacco use and exposure Never used [facility] Start: 08-30-2022 End: 09-09-2022 Exposure to SARS-CoV-2 (event) Not sure [facility] Start: 11-03-2019 End: 09-13-2020 Cigarettes smoked current (pack per day) - Reported 1 [facility] Start: 11-30-2020 End: 02-08-2022 History SDOH Financial 5 [facility] Start: 11-30-2020 End: 02-08-2022 History SDOH Food Worry [address] [facility] Start: 11-30-2020 End: 02-08-2022 History SDOH Transport Med 2 [facility] Start: 06-11-2022 End: 08-30-2024 Alcohol intake Current non-drinker of alcohol (finding) [facility] Start: 06-01-2022 End: 06-11-2022 Exposure to SARS-CoV-2 (event) Yes [facility] Start: 1990 Sex Assigned At Female [facility] Start: 11-30-2022 Tobacco smoking stat us NHIS Ex-smoker [facility] History of tobacco use Current smoker G[facility] Start: 11-30-2022 Tobacco use and exposure User of smokeless tobacco [facility] Start: 11-30-2022 Tobacco Comment vape Corin [facility] Start: 09-13-2020 End: 07-18-2023 Tobacco use panel [facility] National Score (1-10 0), lower number is lower risk Not on file [facility] Start: 06-11-2022 Gender identity Identifies as female gender (finding) [facility] Start: 06-11-2022 Sexual orientation Bisexual (finding ) [facility] Start: 03-23-2025 Tobacco smoking status Never s moked tobacco (finding) [facility] Sexual Orientation [facility] Sex Female (finding) Reagan oRdolfo amin Clinical Notes 06-11-2022 to 03-23-2025 Note Date & Type Note Facility 03-23-2025 Hospital Discharg e instructions Follow Up Care 03/23/2025 17:37:35 With:YOANDY INTERIANO Address: [address] [place] [address] [place] [phone] When:2-4 days [facility] 03-23-2025 Note Exam Date Time Procedure Performing Provider Status 03/23/25 6:20 PM XR Chest 1 View HARJEET SCHMITZ MD; A [facility] (Verified) [id number] ORIGINAL EXAMINATION: ONE XRAY VIEW OF THE CHEST 03/23/2025 6:22 pm COMPARISON: None. HISTORY: ORDERING SYSTEM PROVIDED HISTORY: Reason for Exam: pain FINDINGS: Cardiomediastinal silhouette is normal in size. Costophrenic angles are sharp. No radiographic pneumothorax. No focal consolidation. Osseous structures unremarkable. IMPRESSION: No focal consolidation. Interpreted by: Harjeet Schmitz Preliminary Report By: Harjeet Schmitz Electronically signed By Harjeet Schmitz Dictated Date: 03/23/2025 6:31:22 PM Prelim Date: 03/23/2025 6:32:10 PM Sign Date: 03/23/2025 6:32:10 PM Ordering Provider: PRACHI MARTIN [facility]11-29-2024 Telephone encounter Note* Telephone Encounter - Rosalee Govea RN - 09/03/2024 8:55 AM EST Patient returned call and given provider's message below and patient verbalized understanding. Katharine Govea RN [facility]11-29-2024 Miscellaneous Notes* Telephone Encounter - Rosalee Govea RN - 09/03/2024 8:55 AM EST Patient returned call and given provider's message below and patient verbalized understanding. Katharine Govea RN * Telephone Encounter - Vicky Burton MA - 09/03/2024 8:52 AM EST Left VM instructing patient to return call to receive results. Vicky Burton MA * Telephone Encounter - Mary Comer APRN.CNP - 09/03/2024 7:02 AM EST Please advise patient the wound culture did not grow any bacteria. She may continue to use prescribed medication. Follow instructions given by provider at visit, f/u with PCP if symptoms persist or worsen. Mary Comer APRN.CNP documented in this encounter[facility]24 Telephone encounter Note * Telephone Encounter - Vicky Burton MA - 09/03/2024 8:52 AM EST Left VM instructing patient to return call to receive results. Vicky Burton MA [facility]11-29-2024 Telephone encounter Note* Telephone Encounter - Mary Comer APRN.CNP - 09/03/2024 7:02 AM EST Please advise patient the wound culture did not grow any bacteria. She may continue to use prescribed medication. Follow instructions given by provider at visit, f/u with PCP if symptoms persist or worsen. Mary Comer APRN.HAT MENDER [facility] Work Phone: [phone] 393-957911-25-2024 NoteHNO ID: [id number] Author: ARTEMIO LUNA PA Service: ? Author Type: Physician Laboratory Technical Specialist Type: Progress Notes Filed: 08/30/2024 13:20 Note Text: This note was created using [employer]. Subjective Dk Pena is a 34 year old female. HPI 34-year-old female presents for sore throat, fever, sore in the nose. Patient states she has had a sore throat for the past 5 days. She has had a low-grade fever the past day or 2. Tmax around 99.6 ?F. She states that she was seen by ENT last follow-up on a neck mass, and they found a sore in her nose and told her it was staph per the patient. She was started on mupirocin ointment. Patient has been using the ointment for about 5 days. She states it is not draining any discharge, but the sore is still very painful and red. She states that she does have a runny nose. No epistaxis. No difficulty breathing or swallowing. No cough. No other complaint. PAST MEDICAL HISTORY Diagnosis Date Anxiety Depression depression Rh negative state in antepartum period PAST SURGICAL HISTORY Procedure Laterality Date EXTRACTION, ERUPTED TOOTH OR EXPOSED ROOT (ELEVATION AND/OR FORCEPS REMOVAL) ALLERGIES Codeine, Fluoxetine, and Nickel MEDICATIONS mupirocin (BACTROBAN) 2 % ointment APPLY A SMALL AMOUNT TO THE AFFECTED AREA 3 TIMES DAILY. lamoTRIgine (LAMICTAL) 25 mg tablet Take 25 mg by mouth. CAPLYTA 10.5 mg capsule Clindamycin Phosphate (CLEOCIN T) 1 % lotion APPLY LOTION TOPICALLY TO AFFECTED AREA TWICE DAILY 14 DAYS cephALEXin (KEFLEX) 500 mg capsule Take 1 capsule by mouth four times daily for 5 days. No family history on file. Social History Tobacco Use Smoking status: Former Types: Cigarettes Smokeless tobacco: Current Tobacco comments: vape Substance Use Topics Alcohol use: No Drug use: No Review of Systems Constitutional: Positive for fever. Negative for chills. HENT: Positive for rhinorrhea and sore throat. Negative for congestion and ear pain. Respiratory: Negative for cough and shortness of breath. Cardiovascular: Negative for chest pain. Gastrointestinal: Negative for diarrhea and vomiting. Objective BP 94/60 Pulse 100 Temp 36.7 ?C (98 ?F) Resp 16 Wt 62.7 kg (138 lb 3.7 oz) LMP 11/28/2023 (Exact Date) SpO2 98% BMI 23.00 kg/m? Physical Exam Vitals and nursing note reviewed. Constitutional: General: She is not in acute distress. Appearance: Normal appearance. She is not toxic-appearing. HENT: Right Ear: Tympanic membrane and ear canal normal. Left Ear: Tympanic membrane normal. Nose: Nasal tenderness present. Comments: Erythematous raised lesion just inside left nare on the septum. Mild yellow crusting. Tender to touch. No drainage or fluctuance. Mouth/Throat: Mouth: Mucous membranes are moist. Pharynx: Uvula midline. Posterior oropharyngeal erythema present. Tonsils: 1+ on the right. 1+ on the left. Eyes: Conjunctiva/sclera: Conjunctivae normal. Neck: Comments: + Left-sided neck mass near the submental region. Being followed by ENT Cardiovascular: Rate and Rhythm: Normal rate and regular rhythm. Pulmonary: Effort: Pulmonary effort is normal. Breath sounds: Normal breath sounds. Skin: General: Skin is warm and dry. Neurological: Mental Status: She is alert. Assessment and Plan ASSESSMENT/PLAN: 1. Sore throat - ICD9: 462, ICD10: J02.9 (primary diagnosis) - suspect viral - Group A strep molecular testing negative - Discussed supportive care treatment with fluids, rest and analgesia. - The patient may also use warm salt water gargles, throat lozenges and/or OTC throat spray as needed. - STREP A MOLECULAR (POC) 2. Sore in nose - ICD9: 478.19, ICD10: J34.89 - Will begin treatment with as per antibiotic as written, see orders. Rx for Keflex. Already on mupirocin ointment. - Supportive care with plenty of fluids, rest, and analgesia prn. - ABSCESS AND WOUND CULTURE WITH GRAM STAIN 3. Fever, unspecified fever cause - ICD9: 780.60, ICD10: R50.9 -Possible viral versus from sore in nose. Treating as above.- -Tylenol/Motrin as needed Diagnosis and treatment plan were discussed and questions were answered to the patient's satisfaction. Pt acknowledged understanding of concepts and follow up plan. Specific signs and symptoms that would indicate the need for higher level of care were discussed in detail warranting prompt ER evaluation. Artemio Luna [facility]11-25-2024 History of Present illness Narrative* Artemio Luna PA - 08/30/2024 1:16 PM EST This note was created using [employer]. Subjective Dk Pena is a 34 year old female. HPI 34-year-old female presents for sore throat, fever, sore in the nose. Patient states she has had a sore throat for the past 5 days. She has had a low- grade fever the past day or 2. Tmax around 99.6 F. She states that she was seen by ENT last follow-up on a neck mass, and they found a sore in her nose and told her it was staph per the patient. She was started on mupirocin ointment. Patient has been using the ointment for about 5 days. She states it is not draining any discharge, but the sore is still very painful and red. She states that she does have a runny nose. No epistaxis.No difficulty breathing or swallowing. No cough. No other complaint. PAST MEDICAL HISTORY Diagnosis Date Anxiety Depression depression Rh negative state in antepartum period PAST SURGICAL HISTORY Procedure Laterality Date EXTRACTION, ERUPTED TOOTH OR EXPOSED ROOT (ELEVATION AND/OR FORCEPS REMOVAL) ALLERGIES Codeine, Fluoxetine, and Nickel MEDICATIONS mupirocin (BACTROBAN) 2 % ointment APPLY A SMALL AMOUNT TO THE AFFECTED AREA 3 TIMES DAILY. lamoTRIgine (LAMICTAL) 25 mg tablet Take 25 mg by mouth. CAPLYTA 10.5 mg capsule Clindamycin Phosphate (CLEOCIN T) 1 % lotion APPLY LOTION TOPICALLY TO AFFECTED AREA TWICE DAILY 14DAYS cephALEXin (KEFLEX) 500 mg capsule Take 1 capsule by mouth four times daily for 5 days. No family history on file. Social History Tobacco Use Smoking status: Former Types: Cigarettes Smokeless tobacco: Current Tobacco comments: vape Substance Use Topics Alcohol use: No Drug use: No Review of Systems Constitutional: Positive for fever. Negative for chills. HENT: Positive for rhinorrhea and sore throat. Negative for congestion and ear pain. Respiratory: Negative for cough and shortness of breath. Cardiovascular: Negative for chest pain. Gastrointestinal: Negative for diarrhea and vomiting. Objective BP 94/60 Pulse 100 Temp 36.7 C (98 F) Resp 16 Wt 62.7 kg (138 lb 3.7 oz) LMP 11/28/2023 (Exact Date) SpO2 98% BMI 23.00 kg/m Physical Exam Vitals and nursing note reviewed. Constitutional: General: She is not in acute distress. Appearance: Normal appearance. She is not toxic-appearing. HENT: Right Ear: Tympanic membrane and ear canal normal. Left Ear: Tympanic membrane normal. Nose: Nasal tenderness present. Comments: Erythematous raised lesion just inside left nare on the septum. Mild yellow crusting. Tender to touch. No drainage or fluctuance. Mouth/Throat: Mouth: Mucous membranes are moist. Pharynx: Uvula midline. Posterior oropharyngeal erythema present. Tonsils: 1+ on the right. 1+ on the left. Eyes: Conjunctiva/sclera: Conjunctivae normal. Neck: Comments: + Left-sided neck mass near the submental region. Being followed by ENT Cardiovascular: Rate and Rhythm: Normal rate and regular rhythm. Pulmonary: Effort: Pulmonary effort is normal. Breath sounds: Normal breath sounds. Skin: General: Skin is warm and dry. Neurological: Mental Status: She is alert. Assessment and Plan ASSESSMENT/PLAN: 1. Sore throat - ICD9: 462, ICD10: J02.9 (primary diagnosis) - suspect viral - Group A strep molecular testing negative - Discussed supportive care treatment with fluids, rest and analgesia. - The patient may also use warm salt water gargles, throat lozenges and/or OTC throat spray as needed. - STREP A MOLECULAR (POC) 2. Sore in nose - ICD9: 478.19, ICD10: J34.89 - Will begin treatment with as per antibiotic as written, see orders. Rx for Keflex. Already on mupirocin ointment. - Supportive care with plenty of fluids, rest, and analgesia prn. - ABSCESS AND WOUND CULTURE WITH GRAM STAIN 3. Fever, unspecified fever cause - ICD9: 780.60, ICD10: R50.9 -Possible viral versus from sore in nose. Treating as above.- -Tylenol/Motrin as needed Diagnosis and treatment plan were discussed and questions were answered to the patient's satisfaction. Pt acknowledged understanding of concepts and follow up plan. Specific signs and symptoms that would indicate the need for higher level of care were discussed in detail warranting prompt ER evaluation. WILLIE Dai documented in this encounterUniversity [facility]als [facility]08-24-2024 NoteHNO ID: [id number] Author: WILLY MCKEON MD Service: ? Author Type: Physician Type: Progress Notes Filed: 05/29/2024 10:24 Note Text: Patient presents with: Rash: Bilateral arms x 3 days HPI: Rash: Location: axilla Duration: 3 days Pruritis: little Pain: tee Change: seemed to start as dry skin, aggravated by shaving Bleeding/ulceration/blister/pustule: cracked, dry. No pustules or vesicles. Contacts with rash: No Exposure: No new soaps, detergents, fabric softeners, lotions. Changed deodorant 2 months ago. Recent illness: No. Denies abrasion or tight sleeves in shirts. Treatment: aquafor, athletes foot spray last night (application is not comfortable) MEDICATIONS: lamoTRIgine (LAMICTAL) 25 mg tablet Take 25 mg by mouth. CAPLYTA 10.5 mg capsule Clindamycin Phosphate (CLEOCIN T) 1 % lotion APPLY LOTION TOPICALLY TO AFFECTED AREA TWICE DAILY 14 DAYS ALLERGIES: ALLERGIES Allergen Reactions Codeine Itching Fluoxetine Unknown Nickel Rash VITALS: BP 122/68 Pulse 63 Temp 36.6 ?C (97.8 ?F) (Tympanic) Resp 14 Wt 64 kg (141 lb 1.5 oz) LMP 11/28/2023 (Exact Date) BMI 23.48 kg/m? PHYSICAL EXAM: GEN: pleasant, no acute distress, alert SKIN: Rash is present in left greater than right axilla. There is reddish-purple macular irregular patches without induration or ulceration. The rash is tender to touch and may have mild fissuring. ASSESSMENT/PLAN: 1. Rash - ICD9: 782.1, ICD10: R21 Rash is most consistent with ecchymosis, but no recalled insult to produce it. She may switch to - CLOTRIMAZOLE 1 % TOPICAL CREAM Follow up with signs of infection such as increasing redness, pain, swelling, purulent drainage, or fever/malaise. Willy Mckeon, [facility]08-24-2024 History of Present illness Narrative* Willy Mckeon MD - 05/29/2024 10:11 AM EDT Patient presents with: Rash: Bilateral arms x 3 days HPI: Rash: Location: axilla Duration: 3 days Pruritis: little Pain: tee Change: seemed to start as dry skin, aggravated by shaving Bleeding/ulceration/blister/pustule: cracked, dry. No pustules or vesicles. Contacts with rash: No Exposure: No new soaps, detergents, fabric softeners, lotions. Changed deodorant 2 months ago. Recent illness: No. Denies abrasion or tight sleeves in shirts. Treatment: aquafor, athletes foot spray last night (application is not comfortable) MEDICATIONS: lamoTRIgine (LAMICTAL) 25 mg tablet Take 25 mg by mouth. CAPLYTA 10.5 mg capsule Clindamycin Phosphate (CLEOCIN T) 1 % lotion APPLY LOTION TOPICALLY TO AFFECTED AREA TWICE DAILY 14DAYS ALLERGIES: ALLERGIES Allergen Reactions Codeine Itching Fluoxetine Unknown Nickel Rash VITALS: BP 122/68 Pulse 63 Temp 36.6 C (97.8 F) (Tympanic) Resp 14 Wt 64 kg (141 lb 1.5 oz) LMP 11/28/2023 (Exact Date) BMI 23.48 kg/m PHYSICAL EXAM: GEN: pleasant, no acute distress, alert SKIN: Rash is present in left greater than right axilla. There is reddish-purple macular irregular patches without induration or ulceration. The rash is tender to touch and may have mild fissuring. ASSESSMENT/PLAN: 1. Rash - ICD9: 782.1, ICD10: R21 Rash is most consistent with ecchymosis, but no recalled insult to produce it. She may switch to - CLOTRIMAZOLE 1 % TOPICAL CREAM Follow up with signs of infection such as increasing redness, pain, swelling, purulent drainage, orfever/malaise. Willy Mckeon MD documented in this encounterUniversity Hospitals [facility]03-27-2024 NoteHNO ID: [id number] Author: ALPHONSE LAWRENCE TECHNBELLA Service: ? Author Type: Technologist Type: Progress Notes Filed: 12/31/2023 11:01 Note Text: Radiology Service Progress Note PATIENT NAME: Dk Pena DATE OF SERVICE: December 31, 2023 TIME: 11:00 AM PATIENT IDENTITY VERIFICATION COMPLETED USING TWO (2) IDENTIFIERS: Name and Date of confirmed by patient verbally. FALL SCREENING: Has the patient had 2 falls in the last year or 1 fall with injury or currently using an Ambulatory Assistive Device (Walker, Cane, Wheelchair, Crutches, etc.)? No PATIENT GENDER DATA: Female. status: : No status: NO. PATIENT RELEVANT IMPLANT DATA REVIEWED: Yes PATIENT PRESENTS WITH AN IMPLANTABLE OR ATTACHED STAFFING ANALYST: No RADIOLOGY DEPARTMENT: ultrasound PERIPHERAL IV DATA: Not applicable SIGNED BY: Alphonse Lawrence TECHNBELLA December 31, 2023 11:00 [facility]03-27-2024 NoteHNO ID: [id number] Author: QUINTEN MCCONNELL RT(R) Service: Radiology Author Type: Technologist Type: Progress Notes Filed: 12/31/2023 09:58 Note Text: Radiology Service Progress Note PATIENT NAME: Dk Pena DATE OF SERVICE: December 31, 2023 TIME: 9:58 AM PATIENT IDENTITY VERIFICATION COMPLETED USING TWO (2) IDENTIFIERS: Name and Date of confirmed by patient verbally. FALL SCREENING: Has the patient had 2 falls in the last year or 1 fall with injury or currently using an Ambulatory Assistive Device (Walker, Cane, Wheelchair, Crutches, etc.)? No PATIENT GENDER DATA: Female. status: : No status: N/A PATIENT RELEVANT IMPLANT DATA REVIEWED: Not Applicable PATIENT PRESENTS WITH AN IMPLANTABLE OR ATTACHED STAFFING ANALYST: No RADIOLOGY DEPARTMENT: Mammography PERIPHERAL IV DATA: Not applicable SIGNED BY: RT Ras(R) December 31, 2023 9:58 [facility]03-04-2024 NoteHNO ID: [id number] Author: ASIA BLAIR PA-C Service: ? Author Type: Physician Laboratory Technical Specialist Type: Progress Notes Filed: 12/08/2023 07:45 Note Text: This note was created using AmpliPhi Biosciencesriter. Subjective Dk Pena is a 33 year old female. HPI [...] off and o (more content not included)... [facility]03-04-2024 History of Present illness Narrative* Asia Blair PA-C - 12/08/2023 7:40 AM EST This note was created using NoteWriter. Subjective Dk Pena is a 33 year old female. HPI [...] with 1 female partner for a year. Nodiarrhea or vomiting. Review of Systems Constitutional: Positive [...] by mouth once daily. (Patient not taking: Reportedon 01/16/2023) albuterol HFA (PROAIR HFA) 90 mcg/actuation [...] LOTION TOPICALLY TO AFFECTED AREA TWICE DAILY 14DAYS (Patient not taking: No sig reported) topiramate [...] ORAL) Take by mouth. (Patient not taking: Reportedon 03/29/2021) No current facility-administered medications for this [...] Wt 72.6 kg (160 lb) LMP 11/28/2023 (ExactDate) SpO2 99% BMI 26.63 kg/m Physical Exam Vitals reviewed. Constitutional: Appearance: Normal appearance. HENT: Head: Normocephalic and atraumatic. Right Ear: Tympanic membrane, ear canal and external ear normal. Left Ear: Tympanic membrane, ear canal and external ear normal. Nose: Nose normal. Mouth/Throat: Mouth: Mucous membranes are moist. Pharynx: Pharyngeal swelling and posterior oropharyngeal erythema present. No oropharyngeal exudateor uvula swelling. Tonsils: No tonsillar exudate or [...] for 7 days. She [facility]. Also did recommend establishing with primary care in [place]. Patient voiced understanding. Asia Blair PA-C documented in this encounterUniversity Hospitals Geneva [facility] Center02-23-2024 NoteHNO ID: [id number] Author: QUE ALSTON APRN.HAT MENDER Service: ? Author Type: Nurse Practitioner Type: [...] swelling or pain on movement. Mouth/Throat: Lips: [place]. Mouth: Mucous membranes are moist. Pharynx: Oropharynx [...] pain with movement. (more content not included)... [facility]02-23-2024 History of Present illness Narrative* Que Alston APRN.[facility] - 11/28/2023 1:54 PM EST Subjective HPI Nontoxic-appearing female presents urgent care [...] vomiting abdominal pain change in bowel or bladderhabits. Past medical history prescription medication use and [...] by mouth once daily. (Patient not taking: Reportedon 01/16/2023) albuterol HFA (PROAIR HFA) 90 mcg/actuation [...] LOTION TOPICALLY TO AFFECTED AREA TWICE DAILY 14DAYS (Patient not taking: No sig reported) topiramate [...] ORAL) Take by mouth. (Patient not taking: Reportedon 03/29/2021) History reviewed. No pertinent family history. Social History Tobacco Use Smoking status: Former Types: Cigarettes Smokeless tobacco: Current Tobacco comments: vape Substance Use Topics Alcohol use: No Drug use: No BP 110/71 Pulse 77 Temp 36.6 C (97.9 F) Resp 18 Wt 72.1 kg (159 lb) LMP 11/28/2023 (ExactDate) SpO2 100% No BMI 26.46 kg/m Review [...] swelling or pain on movement. Mouth/Throat: Lips: [place]. Mouth: Mucous membranes are moist. Pharynx: Oropharynx [...] of care. This note was generated using Oilex software. It may contain errors in wording, punctuation, or spelling. Que Alston APRN.[facility] documented in this encounterUniversity Hospitals Geneva Medical Center10-13-2023 Instructions* Patient Instructions* Mary Comer APRN.CNP - 07/18/2023 9:27 AM EDT ASSESSMENT/PLAN: 1. [...] if worsening of symptoms E Eder [employer] Student TEACHING PROVIDER (Physician/PA/DETAILER) NOTE OF PERSONAL INVOLVEMENT IN CARE: I have personally seen and examined the patient and performed the medical decision-making components. I have reviewed the Advanced Practice Registered Nurse (DETAILER) Student's documentation and verified the findings in the note as written. Any additions or changes are noted in bold/italics. Signature: Mary Comer Date: 07/18/2023 Time: 9:26 AM documented in this encounterUniversity Hospitals Geneva Medical Center10-13-2023 History of Present illness Narrative* Mary Comer APRN.HAT MENDER - 07/18/2023 8:27 AM EDT This note was created using Ampl[employer]riter. Subjective Dk Pena is a 33 year old female. Patient presents with five days of sore throat, nasal congestion, headaches, and fatigue. She denies fever, shortness of breath, nausea, or ear pain. She reports that her sore throat has almost resolved, her congestion is the primary concern. She has taken ibuprofen and tylenol with moderate reliefof her headaches. 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 (Patient not taking: Reportedon 01/16/2023) VIT/IRON FUM/FOLIC AC ( VITAMIN ORAL) Take by mouth. (Patient not taking: Reportedon 03/29/2021) REXULTI 1 mg tablet Take 1 [...] ear normal. No swelling or tenderness. There isno impacted cerumen. Tympanic membrane is not perforated, [...] if worsening of symptoms E Eder [employer] Student TEACHING PROVIDER (Physician/PA/DETAILER) NOTE OF PERSONAL INVOLVEMENT IN CARE: I have personally seen and examined the patient and performed the medical decision-making components. I have reviewed the Advanced Practice Registered Nurse (DETAILER) Student's documentation and verified the findings in the note as written. Any additions or changes are noted in bold/italics. Signature: Mray Comer Date: 07/18/2023 Time: 9:26 AM documented in this encounterUniversity Hospitals Geneva Medical Center04-15-2023 Miscellaneous Notes* Telephone Encounter - Elo Lyon - 01/18/2023 8:32 AM EDT Patient given results and verbalized understanding of instructions given. Elo Lyon * Telephone Encounter - Asia Blair PA-C - 01/17/2023 7:30 PM EDT Please call and let patient know her vaginal swab was positive for yeast. Diflucan was sent to treat this. Follow-up with PCP or women's health if symptoms do not improve. documented in this encounterUniversity Hospitals Geneva Medical Center04-13-2023 History of Present illness Narrative* Asia Blair PA-C - 01/16/2023 3:28 PM EDT This note was created using [email or web address].comter. Subjective Dk Pena is a 32 year old female. HPI [...] by mouth once daily. (Patient not taking: Reportedon 01/16/2023) topiramate (TOPAMAX) 100 mg tablet TAKE [...] LOTION TOPICALLY TO AFFECTED AREA TWICE DAILY 14DAYS (Patient not taking: Reported on 11/07/2021) topiramate [...] ORAL) Take by mouth. (Patient not taking: Reportedon 03/29/2021 ) No current facility-administered medications for [...] AMPLIFICATION - ALLI / TRICHOMONAS AMPLIFICATION Asia Blair PA-C documented in this encounterUniversity Hospitals Geneva Medical Center02-25-2023 History of Present illness Narrative* Asia Blair PA-C - 11/30/2022 11:01 AM EST This note was created using AmpliPhi Biosciencesriter. Subjective Dk Pena is a 32 year old female. HPI Patient presents with sore throat, nasal congestion, headache, chills and fever for 2 days. No cough. She has had fatigue and bodyaches. She denies cp or sob. [facility] No nvd. No hx of [...] LOTION TOPICALLY TO AFFECTED AREA TWICE DAILY 14DAYS (Patient not taking: Reported on 11/07/2021) topiramate [...] ORAL) Take by mouth. (Patient not taking: Reportedon 03/29/2021 ) No current facility-administered medications for [...] Wt 74 kg (163 lb 3.2 oz) LMP11/29/2022 (Exact Date) SpO2 98% BMI 27.16 kg/m Physical Exam Vitals reviewed. Constitutional: Appearance: Normal appearance. HENT: Head: Normocephalic and atraumatic. Right Ear: Ear canal and external ear normal. Left Ear: Tympanic membrane, ear canal and external ear normal. Ears: Comments: Right serous middle ear effusion Nose: Congestion present. Mouth/Throat: Lips: [place]. Mouth: Mucous membranes are moist. Pharynx: Pharyngeal swelling and posterior oropharyngeal erythema present. No oropharyngeal exudateor uvula swelling. Tonsils: No tonsillar exudate or [...] d and Flonase sent for congestion. Asia Blair PA-C documented in this encounterUniversity Hospitals Geneva Medical Center12-05-2022 Instructions* Patient Instructions* Alex Cota APRN.[facility] - 09/09/2022 10:49 AM EST RESPIRATORY INFECTION [...] antibiotics. They are spread by coughs, sneezes, anddirect contact, especially [id number]. A respiratory tract infection usually clears up [...] as water, fruit juice, tea, clear soups, andcarbonated beverages. CONTACT YOUR DOCTOR IF : 1. [...] 1. You cough up thick yellow, green, mohr, or bloody sputum. 2. You have difficulty breathing, pain in your chest, or your skin or nails look mohr or blue. 3. You have shaking chills or a temperature over 102 F (39 C). documented in this encounterUniversity Hospitals Geneva Medical Center12-05-2022 History of Present illness Narrative* Alex Cota APRN.HAT MENDER - 09/09/2022 10:02 AM EST Subjective HPI HPI Dk Pena is a 32 year old female who presents today for CC of cough, congestion, h/a. This started 2 days ago. Has tried otc medication for relief. Symptoms are worsened by nothing. Riskfactors sick exposures at work. .Patient presents with: [...] LOTION TOPICALLY TO AFFECTED AREA TWICE DAILY 14DAYS (Patient not taking: Reported on 11/07/2021) topiramate [...] ORAL) Take by mouth. (Patient not taking: Reportedon 03/29/2021 ) No family history on file. [...] HFA 90 MCG/ACTUATION AEROSOL INHALER Alex Cota APRN.CNP documented in this encounterUniversity Hospitals Geneva Medical Center09-06-2022 Instructions* Patient Instructions* Little Hernandez APRN.CNP - 06/11/2022 1:45 PM EDT covid test ordered You will be notified in 24 -48 hours, [facility] until covid results are back [...] breath, inability to swallow. documented in this encounterUniversity Hospitals Geneva Medical Center09-06-2022 History of Present illness Narrative* Little Hernandez APRN.CNP - 06/11/2022 1:38 PM EDT Subjective The history is provided by the patient. No specialized language instructor was used. HPI Dk Pena is a 32 year old female who [...] have confirmed and edited as necessary, the [facility] Review of Systems Constitutional: Positive for [...] for higher level of care were discussed indetail warranting prompt ER evaluation. Little Hernandez APRN.CNP [facility] No data available for this section [facility] Evaluation note* Diagnosis Fatigue, unspecified type documented in this encounter [facility] note* Diagnosis Elevated liver enzymes Nonspecific elevation of levels of transaminase or lactic acid dehydrogenase (LDH) documented in this encounter [facility] note* Diagnosis Exposure to COVID-19 virus- Primary Sore throat Acute pharyngitis Body aches Generalized pain Fever, unspecified fever cause documented in this encounter [facility] [place] [facility]* Diagnosis URI, acute- Primary Acute upper respiratory infections of unspecified site documented in this encounter [facility]* Diagnosis Throat pain- Primary Viral URI with cough Acute upper respiratory infections of unspecified site documented in [facility]* Diagnosis Acute vaginitis- Primary Vaginitis and vulvovaginitis, unspecified [facility] [place] [facility]* Diagnosis Upper respiratory virus- Primary Acute upper respiratory infections of unspecified site documented in this encounter [facility] [place] [facility]* Diagnosis Sore throat- Primary Acute pharyngitis documented in this encounter [facility] [place] [facility]* Diagnosis Acute pharyngitis, unspecified etiology- Primary documented in this encounter [facility] [place] [facility]* Diagnosis Rash- Primary Rash and other nonspecific skin eruption documented [facility] this [facility] [place] [facility]* Diagnosis Sore throat- Primary Acute pharyngitis Sore in nose Other diseases of nasal cavity and sinuses Fever, unspecified fever cause documented in this encounter [facility] CenterProgress note No data available for this section [facility] Summary Purpose Family History No Family History Records FoundNo Family History Records FoundNo Family History Records FoundNo Family History Records FoundNo Family History Records FoundNo Family History Records Found No data available for this section No Family History Records FoundNo Family History Records FoundNo Family History Records Found Advance Directives No Advanced Directives Records FoundDocuments on File Type Date Recorded 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 Go to https://www.Indigio.net/patientEd Enter O319 in the search box to learn more about Learning About Benefits From Quitting Smoking. Current as of: April 08, 2019 Content Version: 12.3 6147-8830 GoSave. Care instructions adapted under license by your healthcare professional. If you have questions about a medical condition or this instruction, always ask your healthcare professional. GoSave disclaims any warranty or liability for your [...] a time each month to do a [id number] breast self-exam. Other women like a less [...] Where can you learn more? Go to https://www.Indigio.net/patientEd Enter P148 in the search box to learn more about Breast Self-Exam: Care Instructions. Current as of: May 26, 2019 Content Version: 12.3 7479-3231 GoSave. Care instructions adapted under license by your healthcare professional. If you have questions about a medical condition or this instruction, always ask your healthcare professional. GoSave disclaims any warranty or liability for your [...] green vegetables such as broccoli and spinach. [place] vegetables such as carrots and sweet potatoes. [...] Where can you learn more? Go to https://www.Indigio.net/patientEd Enter Z059 in the search box to learn more about Food as Fuel: Care Instructions. Current as of: May 26, 2019 Content Version: 12.3 9439-0106 GoSave. Care instructions adapted under license by your healthcare professional. If you have questions about a medical condition or this instruction, always ask your healthcare professional. GoSave disclaims any warranty or liability for your use of this information. Suggestions that may help. -Elimination of caffeine -Evening primrose oil capsules 500 mg 4 x daily -Smoking cessation -Vit E 400-600 IU daily documented in this encounter* Patient Instructions* Evgeny([facility])Darío MA - 11/16/2019 1:45 PM EST Learning [...] Where can you learn more? Go to https://www.Indigio.net/patientEd Enter O319 in the search box to learn more about Learning About Benefits From Quitting Smoking. Current as of: April 08, 2019 Content Version: 12.3 3986-1824 GoSave. Care instructions adapted under license by your healthcare professional. If you have questions about a medical condition or this instruction, always ask your healthcare professional. GoSave disclaims any warranty or liability for your [...] green vegetables such as broccoli and spinach. [place] vegetables such as carrots and sweet potatoes. [...] Where can you learn more? Go to https://www.Indigio.net/patientEd Enter Z059 in the search box to learn more about Food as Fuel: Care Instructions. Current as of: May 26, 2019 Content Version: 12.3 8110-8971 GoSave. Care instructions adapted under license by your healthcare professional. If you have questions about a medical condition or this instruction, always ask your healthcare professional. GoSave disclaims any warranty or liability for your use of this information. documented in this encounter History of Present Illness * Julieta Joseph APRN HAT MENDER - 11/15/2019 2:40 PM EST Subjective: Dk Pena is a 29 y.o. female who presents for an annual exam. The patient has complaints today for right breast abnormality. States she thinks maybe she felt a lump. Denies FHx breast cancer. Also would like test today, which was negative. 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 Bartholin and Benton's glands non-palpable. Urethra: Without discharge. Vagina: [place], moist. No lesions or sores noted. Vaginal tone normal. Cervix: [place], no cervical discharge, redness, or sores. No cervical motion tenderness. Adnexa: Without masses or tenderness. Uterus: Normal size, palpable without masses or tenderness. Declines debit agent Assessment: Healthy female exam. \ 1. Encounter [...] 1 year (around 11/15/2020) for annual exam. * Elo Roger MA - 11/15/2019 2:40 PM EST Dk Pena is presenting for evaluation of Pt is [...] - 11/16/2019 1:45 PM EST Subjective: Dk Pena is a 29 y.o. female. Patient's medications, allergies, past medical, surgical, social and family histories were reviewedand updated as appropriate. HPI Patient here today because she wants to stop smoking. Patient also complains of her ears clogged. States she cannot hear and finished an antibiotic yesterday. [facility] pain, and chills. Seen on 11/08. EKG NSR. Reports having pain in left neck/shoulder that resolved with antibiotic. Denies any further chest pain. Finished her antibiotic yesterday. Reports going to see an oral surgeon in [place] tomorrow for evaluation of dental abscess. Reports [...] hearing loss type Paris Mccann APRN [address] [place] [address] Status Reason Specialty Diagnoses / Procedures Referred By Contact Referred To Contact [facility] Diagnoses Chronic left shoulder pain Paris Mccann APRN [address] [place] [address] Health Concerns Infection Onset Date Last Indicated Resolved Time COVID-19 Rule-Out 06/11/2022 06/11/2022 Infection Onset Date Last Indicated Resolved Time COVID-19 Rule-Out 11/30/2022 11/30/2022 Additional Source Comments INFORMATION SOURCE (unrecogn ized section and content) DATE CREATED AUTHOR 04/01/2018 [facility] DATE CREATED AUTHOR AUTHOR'S ORGANIZ ATION 09/26/2018 [facility] DATE CREATED AUTHOR AUTHOR'S ORGANIZ ATION 07/20/2020 [facility] DATE CREATED AUTHOR AUTHOR'S ORGANIZ ATION 08/04/2020 [facility] DATE CREATED AUTHOR AUTHOR'S ORGANIZ ATION 01/01/2024 [facility] DATE CREATED AUTHOR AUTHOR'S ORGANIZ ATION 09/04/2024 [facility] DATE CREATED AUTHOR AUTHOR'S ORGANIZ ATION 03/27/2025 [facility] DATE CREATED AUTHOR AUTHOR'S ORGANIZ ATION 03/27/2025 [facility] DATE CREATED AUTHOR AUTHOR'S ORGANIZ ATION 03/31/2025 [facility] Reason for Visit (unrecogniz ed section and content) Reason Comments Gynecologic Exam annual Reason Comments Ear Fullness Nicotine Dependence Reason Comments Results Reason Comments Headache head congestion, sor e throat, bodyaches and fever x 4 days Reason Comments Head Congestion [place], cough, runny nos e x2 days Reason Comments Pain, Throat Pt reported fever, n jv congestion x2 days. Reason Comments Vaginal Problem Pt reported odor, ir ritation x3 days. 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 Specialty Start Date End Date Paris Mccann APRN [address] [place] [address] PCP - General Family Medicine 11/02/19 Rachelle Miranda MA 01/05/21 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/Ocean Export Clerk Relationship Specialty [place] [id number] [place] [address] PCP - General Internal Medicine 11/12/21 Source Comments (unrecognize d section and content) In the event this informatio n is protected by the Federal Confidentiality of Alcohol and Drug Abuse Patient Records regulations: The Federal rules restrict any use of the information to criminally investigate or prosecute any alcohol or drug abuse patient.[facility] CenterIn the event this information is protected by the Federal Confidentiality of Alcohol and Drug Abuse Patient Records regulations: The Federal rules restrict any use of the information to criminally investigate or prosecute any alcohol or drug abuse patient.[facility] CenterIn the event this information is protected by the Federal Confidentiality of Alcohol and Drug Abuse Patient Records regulations: The Federal rules restrict any use of the information to criminally investigate or prosecute any alcohol or drug abuse patient.[facility] CenterIn the event this information is protected by the Federal Confidentiality of Alcohol and Drug Abuse Patient Records regulations: The Federal rules restrict any use of the information to criminally investigate or prosecute any alcohol or drug abuse patient.[facility] CenterIn the event this information is protected by the Federal Confidentiality of Alcohol and Drug Abuse Patient Records regulations: The Federal rules restrict any use of the information to criminally investigate or prosecute any alcohol or drug abuse patient.[facility] CenterIn the event this information is protected by the Federal Confidentiality of Alcohol and Drug Abuse Patient Records regulations: The Federal rules restrict any use of the information to criminally investigate or prosecute any alcohol or drug abuse patient.[facility] CenterIn the event this information is protected by the Federal Confidentiality of Alcohol and Drug Abuse Patient Records regulations: The Federal rules restrict any use of the information to criminally investigate or prosecute any alcohol or drug abuse patient.[facility] Center[facility] the event this information is protected by the Federal Confidentiality of Alcohol and Drug Abuse Patient Records regulations: The Federal rules restrict any use of the information to criminally investigate or prosecute any alcohol or drug abuse patient.[facility] Center[facility] the event this information is protected by the Federal Confidentiality of Alcohol and Drug Abuse Patient Records regulations: The Federal rules restrict any use of the information to criminally investigate or prosecute any alcohol or drug abuse patient.[facility] Center[facility] the event this information is protected by the Federal Confidentiality of Alcohol and Drug Abuse Patient Records regulations: The Federal rules restrict any use of the information to criminally investigate or prosecute any alcohol or drug abuse patient.[facility] CenterIn the event this information is protected by the Federal Confidentiality of Alcohol and Drug Abuse Patient Records regulations: The Federal rules restrict any use of the information to criminally investigate or prosecute any alcohol or drug abuse patient.[facility] FOR RECORDS PERTAINING TO PATIENTS WHO ARE [...] BE BASED ON THE PRIMARY CLINICAL RECORDS. [facility]. provides no warranty or guarantee of the accuracy or completeness of information in this document.
--- NOTE | 2025-03-31 22:50 | EX.ED.DYSGE1 ---
HPI History of Present Illness Chief Complaint: Back Narrative Narrative: 34-year-old female past medical history of anxiety, spina bifida occulta, has had chronic back pain for which she sees Dr. Billy Lopez. She states that she has had [id number] of her lower extremities in the past. Tonight, she did her physical therapy, and when she was walking, states she was having problems controlling her right lower extremity. Additionally, she had paresthesias of the face and thought that she was having difficulty controlling her facial expressions. She denies any fevers or chills, no headache. She was concerned because the pins and needle sensations are getting worse. She was having problems with her insurance on obtaining an MRI of the brain and lumbar spine that the neurologist, Dr. Moran had wanted. However, she has scheduled to have them performed soon. She presents with concern about her facial paresthesias and her worsening tremors of her back along with her inability to control her facial expressions. However, those symptoms have resolved. [facility] Medical History Spina bifida Acute otitis externa of both ears Acute pain of both ears Bipolar disorder, unspecified Borderline personality disorder Adjustment disorder DANA (generalized anxiety disorder) Persistent depressive disorder Nicotine dependence, cigarettes, uncomplicated Home Medications ?Medication ?Instructions ?Recorded ?Last Taken ?Type lumateperone 10.5 mg capsule 10.5 mg PO DAILY 04/30/24 Unknown History (Caplyta) sennosides 8.6 mg tablet (Natural 8.6 mg PO .QOD 08/05/24 Unknown History Senna Laxative) methocarbamol 500 mg tablet 500 mg PO TID PRN pain/spasms #30 02/22/25 Unknown Rx tabs ipratropium bromide 21 mcg (0.03 2 spray intranasal BID-TID PRN 03/18/25 Unknown Rx %) nasal spray postnasal drainage #30 mL lorazepam 1 mg tablet (Ativan) 1 mg PO BID PRN claustrophobia #2 03/30/25 Unknown Rx tabs Allergy/AdvReac Type Severity Reaction Status Date / Time fluoxetine (From Prozac) Allergy Angioedema Verified 03/31/25 20:48 linaclotide (From Linzess) AdvReac Intermediate Upset Verified 03/31/25 20:48 Stomach codeine AdvReac Other Verified 03/31/25 20:48 Family History Mother Anxiety Arthritis Autoimmune disease Depressed Mental disorder Psychiatric care Rheumatoid arthritis Father Asthma Hypertension High cholesterol Grandfather Skin cancer Grandmother Diabetes Dementia Surgical History No pertinent past surgical history Social History household members: children housing: house current occupational status: disabled 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 Positive paresthesias of legs with mild weakness of right lower extremity. Difficulty with facial expressions bilaterally-resolved. Increasing tremors especially of the low back. EXAM Physical Exam Narrative Exam Narrative: Afebrile. Vital signs noted. Nontoxic-appearing. Cardiovascular examination reveals mild tachycardia. Lungs are clear to auscultation bilaterally. Abdomen is soft and nontender with normal active bowel sounds. She is able to move all her extremities. DTR, patellar, are diminished and difficult to elicit but appear equal. No vertebral point tenderness or bony step-off of the lumbar spine. Straight leg raising test is negative bilaterally. Const Vital Signs: 03/31/25 20:47 Temperature 97 F L Temperature Source Temporal Pulse Rate 102 H Respiratory Rate 14 Blood Pressure 121/79 H Blood Pressure Mean 93 Pulse Ox 98 Oxygen Delivery Method Room Air MDM MDM MDM Narrative Medical decision making narrative: In the differential diagnosis is acute on chronic back pain versus lumbar radiculopathy versus electrolyte imbalance or dehydration causing paresthesias. Regarding the paresthesias of the face and worsening tremors, MS is also in the differential diagnosis. I had a lengthy discussion with the patient. Through shared decision making, it was not felt that CT needed to be obtained as well as laboratory work. I did offer to check her electrolytes and administer IV fluids but she declined stating that she would rather do a p.o. challenge at home. Additionally, she was told that stroke symptoms or not bilateral especially with the problems and paresthesias that she was having with her face. When I mentioned a diagnosis of multiple sclerosis, she states that multiple physicians have mentioned the possibility of her having this. I do not feel that she needs a stat MRI of the brain or of the back. She will follow-up with her neurologist. I do feel that there may be some anxiety component to this as well, and so does the patient. I feel she can be discharged to follow-up as her medical screening examination is negative for any emergent process. Return instructions to the emergency department were reviewed. Patient motivated for discharge. Disposition is discharged home in stable condition. History & Record Review Discussion w/independent historian: Patient Additional record(s) reviewed:: Prior ED visit Discharge Plan Triage Chief Complaint: Back ED Provider: Shaun Baugh Dx/Rx/DC Orders Clinical Impression: Paresthesias, Anxiety, Encounter for medical screening examination Instructions: ED Back Pain (Acute or Chronic), ED Paraesthesias Prescriptions: No Action Caplyta 10.5 mg capsule 10.5 mg PO DAILY sennosides [Natural Senna Laxative] 8.6 mg tablet 8.6 mg PO .QOD Rx Instructions: QOD or twice a week methocarbamol 500 mg tablet 500 mg PO TID PRN (Reason: pain/spasms) Qty: 30 0RF ipratropium bromide 21 mcg (0.03 %) spray,non-aerosol 2 spray intranasal BID-TID PRN (Reason: postnasal drainage) Qty: 30 0RF Rx Instructions: administer into each nostril lorazepam [Ativan] 1 mg tablet 1 mg PO BID PRN (Reason: claustrophobia) Qty: 2 0RF Rx Instructions: Take 1 tablet 1 hour before MRI. Take second tablet when you are right for the MRI. Primary Care Provider: Jaci Michelle Referrals: Jaci Michelle MD [Primary Care Provider] - Ld Moran MD [Non-Staff -Ordering Privileges] - As soon as possible Activity Restrictions/Additional Instructions: Follow-up with neurology as soon as possible. Have the MRI of your brain and low back performed as soon as possible. Return with fever, new or worsening symptoms. Print Language: [place] Disposition Disposition: Home, Self Care
[2025-03-31 22:51] VITALS: BP 112/62; PULSE 89; RESP 14; TEMP 37.1; O2SAT 100
== END 2025-03-31 22:56 | disposition home or self-care (01) ==
PROVIDERS: Emergency Provider Emergency Medicine; PCP Internal Medicine; Visit Provider Emergency Medicine
DX: R20.2 Paresthesia of skin (principal); F41.9 Anxiety disorder, unspecified; F17.290 Nicotine dependence, other tobacco product, uncomplicated; G89.29 Other chronic pain; M54.9 Dorsalgia, unspecified; Q76.0 Spina bifida occulta
CPT/HCPCS: 99282

== ENCOUNTER 2025-04-03 22:00 | Emergency (ER) | payer MEDICARE, MEDICAID, SELFPAY ==
[2025-04-03 22:02] VITALS: BP 107/80; PULSE 105; RESP 18; TEMP 36.8; O2SAT 99; BMI 23.8
[2025-04-03 22:19] VITALS: BMI 25.0
[2025-04-03 22:44] LABS: Bedside Glucose 94 mg/dL (74-106)
--- NOTE | 2025-04-03 22:56 | CT_ITS ---
PROCEDURE: BRAIN/HEAD WITHOUT CONTRAST 04/03/2025 REASON FOR EXAM: PARESTHESIAS, GENERALIZED WEAKNESS TECHNIQUE: BRAIN/HEAD WITHOUT CONTRAST Coronal and Sagittal reconstruction series were provided. One or more dose reduction techniques were used (e.g., Automated exposure control, adjustment of the mA and/or kV according to patient size, use of iterative reconstruction technique. RADIATION DOSE SUMMARY: DLP: 881 mGycm COMPARISON: None FINDINGS: There is no acute infarct, intracranial hemorrhage, or mass effect. There is no hydrocephalus or significant midline shift. No acute, depressed calvarial fractures. No large scalp hematomas. CT/Brain/Head without Contrast IMPRESSION: No acute intracranial process. Reading Location: [id number]
--- NOTE | 2025-04-03 22:57 | EKG12_ITS ---
Test Reason : PALPITATIONS Blood Pressure : */* mmHG Vent. Rate : 77 BPM Atrial Rate : 77 BPM P-R Int : 156 ms QRS Dur : 92 ms QT Int : 370 ms P-R-T Axes : 76 77 46 degrees QTcB Int : 418 ms Normal sinus rhythm with sinus arrhythmia Normal ECG Confirmed by TYREE GONZALEZ, JORDAN ([id number]), rewrite editor STEVAN HINTON ([id number]) on 04/05/2025 6:35:55 AM Referred By: ELBERT Confirmed By: JORDAN CLEMENTS MD
--- NOTE | 2025-04-03 22:58 | EDS_ITS ---
HPI History of Present Illness Chief Complaint: Neuro S/Sx Detail of Chief Complaint: Multiple complaints Informant: patient Narrative Narrative: Patient presents the emergency department multiple complaints today. She complains of paresthesias involving her entire body worse over this week but have been chronic. She was seen in the emergency department 3 days ago for tremors. She scheduled to see her neurologist in 3 days. Patient has history of psychosis as well as anxiety and bipolar disorder. Denies headache. Denies falls or head injuries. Denies recent illness. [facility] Medical History Spina bifida Acute otitis externa of both ears Acute pain of both ears Bipolar disorder, unspecified Borderline personality disorder Adjustment disorder DANA (generalized anxiety disorder) Persistent depressive disorder Nicotine dependence, cigarettes, uncomplicated Home Medications ?Medication ?Instructions ?Recorded ?Last Taken ?Type lumateperone 10.5 mg capsule 21 mg PO DAILY 04/30/24 U nknown History (Caplyta) sennosides 8.6 mg tablet (Natural 8.6 mg PO .QOD 08/05 Unknown History Senna Laxative) methocarbamol 500 mg tablet 500 mg PO TID PRN pain/spa sms #30 02/22/25 Unknown Rx tabs lorazepam 1 mg tablet (Ativan) 1 mg PO BID PRN claustr ophobia #2 03/30/25 Unknown Rx tabs clindamycin phosphate 1 % lotion topical 04/03/25 Unkn own History clotrimazole 1 % topical cream applic topical BID 03/07 06/30 Unknown History lumateperone 21 mg capsule 21 mg PO DAILY 04/03/25 Unk nown History (Caplyta) Allergy/AdvReac Type Severity Reaction Status Date / Time fluoxetine (From Prozac) Allergy Angioedema Verified 04/03/25 22:02 linaclotide (From Linzess) AdvReac Intermediate Upset Verified 04/03/25 22:02 Stomach codeine AdvReac Other Verified 04/03/25 22:02 Family History Mother Anxiety Arthritis Autoimmune disease Depressed Mental disorder Psychiatric care Rheumatoid arthritis Father Asthma Hypertension High cholesterol Grandfather Skin cancer Grandmother Diabetes Dementia Surgical History No pertinent past surgical history Social History household members: children housing: house current occupational status: disabled 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 Smoking Status: Current some day smoker tobacco type: e-cigarettes Electronic Cigarette Use: with nicotine alcohol intake: never substance use type: does not use what type of physical activity do you participate in: walking and running frequency: 3-4 times per week seatbelt use: always do you feel safe at home: Yes ROS ROS ED Review of Systems ROS Unobtainable: other Constitutional Constitutional ED: Reports lethargy; Denies chills, fever(s), sweats or weight loss Eyes Eyes: Denies blurry vision, change in vision or diplopia ENT ENT ED: Denies rhinorrhea or sore throat Cardiovascular Cardiovascular: Reports palpitations; Denies chest pain, orthopnea or racing heartbeat Respiratory/Chest Respiratory/Chest: Denies cough, dyspnea, dyspnea on exertion, orthopnea or sputum Gastrointestinal Gastrointestinal: Denies abdominal pain, diarrhea, nausea or vomiting Genitourinary Genitourinary ED: Denies dysuria, hematuria or urinary frequency Musculoskeletal Musculoskeletal: Denies arthralgias, back pain, myalgias or neck pain Integumentary Denies abscess, Abrasions or rash Neurologic Neurologic: Reports paresthesias, weakness and other Details: Difficulty with walking ; Denies headache(s) Psychiatric Psychiatric: Denies anxiety, depression or suicidal thoughts Endocrine Endocrinology: Denies polydipsia, polyphagia or polyuria Hematologic/Lymphatic Hematologic/Lymphatic: Denies easy bleeding, easy bruising or lymphadenopathy Allergic/Immunologic Allergic/Immunologic ED: Denies mouth swelling, tongue swelling or urticaria EXAM Physical Exam Const Vital Signs: 04/03/25 22:02 04/04/25 00:00 Temperature 98.2 F Temperature Source Temporal Pulse Rate 105 H 72 Respiratory Rate 18 16 Blood Pressure 107/80 108/63 Blood Pressure Mean 89 78 Pulse Ox 99 100 Oxygen Delivery Method Room Air Room Air Positive well nourished and well developed General Appearance ED: well developed and NAD HEENT Reports TM's clear and moist mucous membranes normocephalic and atraumatic; Negative for trauma or tenderness Tympanic Membrane ED: Yes TM's clear Eyes PERRL and EOMs intact bilaterally General Eye ED: Negative for pale conjunctiva or scleral icterus Neck no lymphadenopathy, supple and no JVD General: Negative for tenderness Chest Wall inspection of chest normal and palpation of chest normal Chest: Negative for tenderness Resp normal respiratory effort and clear to auscultation bilaterally Effort and Inspection: Negative for respiratory distress or pain with movement Auscultation: Negative for rhonchi, wheezes or diminished lung sounds Cardio regular rate, regular rhythm, S1 normal heart sound, S2 normal heart sound and no murmurs Peripheral Pulses: pulses 2+ throughout GI normal to inspection, nondistended, normoactive bowel sounds, soft to palpation, non-tender, non-distended and no masses Back/Spine no CVA tenderness and no thoracic nor lumbar tenderness Extremity normal to inspection General Extremety ED: Negative for edema General Extremity: Negative for edema Neuro oriented x3, CN's II-XII intact bilaterally, no sensory deficits noted and gait normal Neuro Narrative: No facial droop. No focal weakness noted. Sensorium / Orientation: awake, alert, oriented to person, oriented to place and oriented to time Motor Exam: strength 5/5 throughout and strength abnormal Psych mental status grossly normal Skin no rashes or lesions noted and no wounds MDM MDM MDM Narrative Medical decision making narrative: Patient presents with multiple complaints of numbness and tingling in weakness in her legs. Seen earlier in the week for some tremors. She is scheduled to see her neurologist next week and has an MRI of the brain scheduled for next week. Patient clinically looks well without any focal deficits. Patient also with history of anxiety and history of psychosis. IV line established. EKG obtained on arrival shows sinus rhythm with rate of 77 bpm with no acute ST segment changes. CBC with differential showed a white count of 10.5 with hemoglobin 14.6 and platelet count of 258. Chemistries unremarkable. BUN 13 and creatinine 0.89. Urine tox screen was negative and alcohol was negative. hCG was negative. CT scan of the brain without contrast was unremarkable. Patient did not want anything for anxiety here. She will keep her appointment with neurologist and appointment to have her MRI done. In the differential potentially would be MS versus other etiology. She will require further testing and this is an process. Lab Data Attestation: I reviewed the patient's lab results. Labs: Laboratory Results - last 24 hr 04/03/25 04/03/25 04/03/25 22:23 22:26 23:06 WBC 10.5 RBC 4.46 Hgb 14.6 Hct 41.5 MCV 93.0 MCH 32.7 H MCHC 35.2 RDW Std Deviation 39.8 RDW Coeff of Olamide 11.7 Plt Count 258 MPV 8.9 Immature Gran % (Auto) 0.300 Neut % (Auto) 57.6 Lymph % (Auto) 32.6 [place] % (Auto) 6.1 Eos % (Auto) 2.5 Baso % (Auto) 0.9 Absolute Neuts (auto) 6.1 Absolute Lymphs (auto) 3.43 Nucleated RBC % 0 Sodium 139 Potassium 3.7 Chloride 103 Carbon Dioxide 24.6 Anion Gap 11 BUN 13 Creatinine 0.89 Estim Creat Clear Calc 80.90 Est GFR (MDRD) Non-Af 88 BUN/Creatinine Ratio 14.2 Glucose 84 Calcium 9.9 Serum , Qual NEGATIVE Urine Opiates Screen NEGATIVE U Buprenorphine Qual NEGATIVE Ur Oxycodone Screen NEGATIVE Urine Methadone Screen NEGATIVE Urine Fentanyl Screen NEGATIVE Ur Barbiturates Screen NEGATIVE Ur Phencyclidine Scrn NEGATIVE Ur Amphetamines Screen NEGATIVE U Benzodiazepines Scrn NEGATIVE Urine Cocaine Screen NEGATIVE U Cannabinoids Screen NEGATIVE Ethyl Alcohol < 10.1 POC Glucose 94 Radiography Diagnostic Testing: Clinical Impression(s) from Imaging Studies Brain CT 04/03/25 22:56 IMPRESSION: No acute intracranial process. Reading Location: [facility] EKG Initial EKG: Attestation: I personally reviewed and interpreted this EKG as follows: Comments: Sinus rhythm with rate of 77 bpm with no acute ST segment changes Discharge Plan Triage Chief Complaint: Neuro S/Sx ED Provider: Daysi Ladd Dx/Rx/DC Orders Clinical Impression: Paresthesias Instructions: ED Paraesthesias Prescriptions: No Action Caplyta 10.5 mg capsule 21 mg PO DAILY sennosides [Natural Senna Laxative] 8.6 mg tablet 8.6 mg PO .QOD Rx Instructions: QOD or twice a week methocarbamol 500 mg tablet 500 mg PO TID PRN (Reason: pain/spasms) Qty: 30 0RF clotrimazole 1 % cream topical BID clindamycin phosphate 1 % lotion topical Caplyta 21 mg capsule 21 mg PO DAILY lorazepam [Ativan] 1 mg tablet 1 mg PO BID PRN (Reason: claustrophobia) Qty: 2 0RF Rx Instructions: Take 1 tablet 1 hour before MRI. Take second tablet when you are right for the MRI. Primary Care Provider: Jaci Michelle Referrals: Jaci Michelle MD [Primary Care Provider] - Activity Restrictions/Additional Instructions: Keep your appointment for MRI of brain and appointment with neurologist Print Language: [place] Disposition Disposition: Home, Self Care
[2025-04-03] MEDS: 0.9% Normal Saline (1000mL) 1,000 ML 150 ML IV (23:05)
[2025-04-03 23:10] LABS: Absolute Lymphocyte Count 3.43 X10^3/uL (0.83-4.51); Absolute Neutrophil Count 6.1 X10^3/uL (2.0-7.7); Basophil# 0.09 X10^3/uL; Basophil% 0.9 % (0-1); Eosinophil# 0.26 X10^3/uL; Eosinophils% 2.5 % (0-5); Hematocrit 41.5 % (37-47); Hemoglobin 14.6 g/dL (12.0-15.0); Lymphocyte # 3.43 X10^3/ul (0.83-4.51); Lymphocyte % 32.6 % (19-41); Mean Corp Hgb Conc 35.2 g/dL (32-36); Mean Corpuscular Hgb 32.7 pg (27.0-32.0); Mean Platelet Vol. 8.9 fl (6.2-12.0); Monocyte# 0.64 X10^3/uL; Monocyte% 6.1 % (0-10); NRBC Flagged by Analyzer 0 % (0-5); Neutrophil # 6.07 X10^3/uL (2.7-7.7); Neutrophil % 57.6 % (47-70); Platelet Count 258 K/mm3 (150-450); RBC Distribution Width CV 11.7 % (11.6-14.6); RBC Distribution Width SD 39.8 fl (35.1-43.9); Red Blood Count 4.46 M/mm3 (4.2-5.4); White Blood Count 10.5 K/mm3 (4.4-11.0)
--- OUTSIDE RECORDS SUMMARY | 2025-04-03 23:24 | XMS RPT_ITS | CCD ---
Author Organization [facility] Care Team Providers Care Medical Office Coordinator Name Role Phone ZACKARY SEWELL Unavailable Unavailable ZACKARY SEWELL Unavailable Unavailable NO REFERRING DR Unavailable Unavailable Paris Mccann Primary Care Provider [phone] Paris Mccann Primary Care Provider [phone] Paris Mccann APRN Primary Care Provide r Rachelle Miranda MA Unavailable Unavailable Jaison Pulido MD Primary Care Provider [phone] Unavailable Primary Care Provider Unavailabl e Unavailable Primary Care Provider Unavailabl KASSANDRA Hameed Referring Unavailable LAISHA GR, YOANDY Primary Care Physician ROXY DE LOS SANTOS DO Attending Unavailable LAISHA ELAINE-STEPHEN, YOANDY Primary Care Unavaila ramana ROBLES, [place] Primary Care Unavailab ERNIE Vasquez Attending Unavailable SASHA ROBLES [place] Referring Unavailab maira ROBLES [place] Primary Care Unavailab ANA MARÍA Lopez Attending Unavailable Shaun Baugh Attending Unavailable Bly, Jaci Primary Care Unavailable Care Physician, No Primary Primary Care Unava ilable Venkatesh Bennettin Admitting Unavailable Willy Bennett Attending Unavailable Venkatesh Bennettin Referring Unavailable Betsy Crowder Attending Unavailable Care Physician, No Primary Primary Care Unava ilable Betsy Crowder Referring Unavailable Ulices Jean Baptiste Attending Unavailable Ulices Jean Baptiste Referring Unavailable Bly, Jaci Primary Care Unavailable Viviana, Jaci Attending Unavailable Bly, Jaci Primary Care Unavailable Bly, Jaci Referring Unavailable Bly, Jcai Primary Care Unavailable Jose Holm Referring Unavailable Jose Holm Attending Unavailable Ferullo, Lianne Primary Care Unavailable Ulices Jean Baptiste Attending Unavailable Ulices Jean Baptiste Referring Unavailable KATLIN SLAUGHTER Referring Unavailable KATLIN SLAUGHTER Attending Unavailable Ferullo, Lianne Primary Care Unavailable Care Physician, No Primary Primary Care Unava ilable Betsy Crowder Referring Unavailable Betsy Crowder Attending Unavailable Care Physician, No Primary Primary Care Unava ilable Betsy Crowder Referring Unavailable Betsy Crowder Attending Unavailable Ferullo, Lianne Primary Care Unavailable Ferullo, Lianne Referring Unavailable Ferullo, Lianne Attending Unavailable Daysi Ladd Attending Unavailable Viviana, Jaci Primary Care Unavailable Viviana, Jaci Primary Care Unavailable Jose Holm Referring Unavailable Jose Holm Attending Unavailable Ferullo, Lianne Primary Care Unavailable Ferullo, Lianne Referring Unavailable Ferullo, Lianne Attending Unavailable Vinay Gonzalez Attending Unavailable Viviana, Jaci Referring Unavailable Bly, Jaci Primary Care Unavailable Bly, Jaci Primary Care Unavailable Jose Holm Attending Unavailable Viviana, Jaci Referring Unavailable Care Physician, No Primary Primary Care Unava ilable Care Physician, No Primary Referring Unava ilable Bly, Jaci Attending Unavailable Care Physician, No Primary Primary Care Unava ilable Care Physician, No Primary Referring Unava ilable Viviana, Jaci Attending Unavailable Bly, Jaci Primary Care Unavailable Betsy Crowder Attending Unavailable Betsy Crowder Referring Unavailable Care Physician, No Primary Primary Care Unava ilable Betsy Crowder Referring Unavailable Betsy Crowder Attending Unavailable Care Physician, No Primary Primary Care Unava ilable Bly, Jaci Attending Unavailable Viviana, Jaci Referring Unavailable Ferullo, Lianne Referring Unavailable Care Physician, No Primary Primary Care Unava ilable Bly, Jaci Attending Unavailable KATLIN SLAUGHTER Referring Unavailable Ferullo, Lianne Primary Care Unavailable Ulices Jean Baptiste Attending Unavailable Ferullo, Lianne Primary Care Unavailable Ferullo, Lianne Referring Unavailable Ferullo, Lianne Attending Unavailable Betty Hernandez Attending Unavailable Bly, Jaci Referring Unavailable Bly, Jaci Primary Care Unavailable Dieter López Attending Unavailable Jaci Michelle Primary Care Unavailable Jose Holm Attending Unavailable Jaci Michelle Referring Unavailable Jaci Michelle Primary Care Unavailable Care Physician, No Primary Primary Care Unava ilTravis Navarrete Attending Unavailable Allergies Allergy Classification Reported Allergen(s) Allergy Type Date of Onset Reaction(s) Facility (11 sources) nickel sulfate; Translations: [NICKEL] Drug Allergy 7 Rash [facility] (19 sources) Codeine; Translations: [CODEINE] Drug Allergy 0 Itching [facility] (12 sources) FLUoxetine; Translations: [FLUOXETINE] Drug Allergy 2 Edema, Unknown [facility] (11 sources) nickel Drug Allergy 7 Rash [facility] (1 source) Codeine Drug Allergy 5 [facility] (1 source) FLUoxetine Drug Allergy 5 [facility] (1 source) linaclotide Drug Allergy 5 [facility] (1 source) nickel Drug Allergy 5 [facility] Medications Current Medications Medication Drug [...] (1 source) Serotonin Reuptake Inhibitor Start: 01-05-20 take 1 capsule by mouth once daily [...] tablet 1 01/04/2022 Active lamoTRIgine 25 mg Exposure: No new soaps, detergents, fabric softeners, [...] redness, pain, swelling, purulent drainage, orfever/malaise. Willy Noonan MD documented in this encounterPromedica Flower Hospital03-27-2024 NoteHNO ID: [id number] Author: ALPH[employer]SE [employer], TECHNOLOGIST Service: ? Author Type: Technologist Type: Progress Notes Filed: 12/31/2023 11:01 Note Text: Radiology Service Progress Note PATIENT NAME: Dk Vogt DATE OF SERVICE: December 31, 2023 TIME: [...] PATIENT PRESENTS WITH AN IMPLANTABLE OR ATTACHED STOCK CHECKERER: No RADIOLOGY DEPARTMENT: ultrasound PERIPHERAL IV DATA: Not applicable SIGNED BY: Alphonse Ngo TECHNOLOGIST December 31, 2023 11:00 [facility]03-27-2024 NoteHNO ID: [id number] Author: QUINTEN MCCONNELL RT(Parveen) Service: Radiology Author Type: Technologist Type: Progress Notes Filed: 12/31/2023 09:58 Note Text: Radiology Service Progress Note PATIENT NAME: Dk Vogt DATE OF SERVICE: December 31, 2023 TIME: [...] PATIENT PRESENTS WITH AN IMPLANTABLE OR ATTACHED STOCK CHECKERER: No RADIOLOGY DEPARTMENT: Mammography PERIPHERAL IV DATA: Not applicable SIGNED BY: RT Ras(Parveen) December 31, 2023 9:58 [facility]03-04-2024 NoteHNO ID: [id number] Author: ASIA BLAIR PA-C Service: ? Author Type: Physician Warp Scouring Vat Tender Type: Progress Notes Filed: 12/08/2023 07:45 Note Text: This note was created using NoteWriter. Subjective Dk Vogt is a 33 year [...] off and o (more content not included)... [facility]03-04-2024 History of Present illness Narrative* Asia Blair PA-C - 12/08/2023 7:40 AM EST This note was created using 19payriter. Subjective Dk Vogt is a 33 year [...] days. She does have an [facility]. Also did recommend establishing with primary care in [place]. Patient voiced understanding. Asia Blair PA-C documented in this encounterPromedica Flower Hospital02-23-2024 NoteHNO ID: [id number] Author: KASSANDRA ALSTON APRN.WASTE PICKER Service: ? Author Type: Nurse Practitioner Type: [...] swelling or pain on movement. Mouth/Throat: Lips: [place]. Mouth: Mucous membranes are moist. Pharynx: Oropharynx [...] pain with movement. (more content not included)... [facility]02-23-2024 History of Present illness Narrative* Kassandra Alston, CHELE.WASTE PICKER - 11/28/2023 1:54 PM EST Subjective HPI [...] swelling or pain on movement. Mouth/Throat: Lips: [place]. Mouth: Mucous membranes are moist. Pharynx: Oropharynx [...] of care. This note was generated using Nuserv software. It may contain errors in wording, punctuation, or spelling. Kassandra Alston APRN.STEPHEN documented in this encounterPromedica Flower Hospital10-13-2023 Instructions* Patient Instructions* Mary Comer APRN.CNP - [...] if worsening of symptoms E [employer] Student TEACHING PROVIDER (Physician/PA/CERTIFIED OPHTHALMIC MEDICAL TECHNICIAN) NOTE OF PERSONAL INVOLVEMENT IN CARE: I have personally seen and examined the patient and performed the medical decision-making components. I have reviewed the Advanced Practice Registered Nurse (CERTIFIED OPHTHALMIC MEDICAL TECHNICIAN) Student's documentation and verified the findings in the note as written. Any additions or changes are noted in bold/italics. Signature: Mary Comer Date: 07/18/2023 Time: 9:26 AM documented in this encounterPromedica Flower Hospital10-13-2023 History of Present illness Narrative* Mary Comer APRN.WASTE PICKER - 07/18/2023 8:27 AM EDT This note was created using [employer]. Subjective Dk Vogt is a 33 year [...] if worsening of symptoms E [employer] Student TEACHING PROVIDER (Physician/PA/CERTIFIED OPHTHALMIC MEDICAL TECHNICIAN) NOTE OF PERSONAL INVOLVEMENT IN CARE: I have personally seen and examined the patient and performed the medical decision-making components. I have reviewed the Advanced Practice Registered Nurse (CERTIFIED OPHTHALMIC MEDICAL TECHNICIAN) Student's documentation and verified the findings in the note as written. Any additions or changes are noted in bold/italics. Signature: Mary Comer Date: 07/18/2023 Time: 9:26 AM documented in this encounterPromedica Flower Hospital04-15-2023 Miscellaneous Notes* Telephone Encounter - Elo Lyon [...] symptoms do not improve. documented in this encounterPromedica Flower Hospital04-13-2023 History of Present illness Narrative* Asia Blair PA-C - 01/16/2023 3:28 PM EDT This note was created using 19payriter. Subjective Dk Vogt is a 32 year [...] AMPLIFICATION Asia Blair PA-C documented in this encounterPromedica Flower Hospital02-25-2023 History of Present illness Narrative* Asia Blair PA-C - 11/30/2022 11:01 AM EST This note was created using 19payriter. Subjective Dk Vgot is a 32 year old female. HPI Patient presents with sore throat, nasal congestion, headache, chills and fever for 2 days. No cough. She has had fatigue and bodyaches. She denies cp or sob. [facility]. No nvd. No hx [...] ear effusion Nose: Congestion present. Mouth/Throat: Lips: [place]. Mouth: Mucous membranes are moist. Pharynx: Pharyngeal [...] congestion. Asia Blair PA-C documented in this encounterPromedica Flower Hospital12-05-2022 Instructions* Patient Instructions* Alex Cota APRN.WASTE PICKER - 09/09/2022 10:49 AM EST RESPIRATORY INFECTION [...] spread by coughs, sneezes, anddirect contact, especially [id number]. A respiratory tract infection usually clears up [...] 102 F (39 C). documented in this encounterPromedica Flower Hospital12-05-2022 History of Present illness Narrative* Alex Cota APRN.CNP - 09/09/2022 10:02 AM EST Subjective HPI HPI Dk Vogt is a [...] INHALER Alex Cota APRN.CNP documented in this encounterPromedica Flower Hospital09-06-2022 Instructions* Patient Instructions* Little Hernandez APRN.CNP - 06/11/2022 1:45 PM EDT covid test ordered You will be notified in 24 -48 hours, results available on [facility] until covid results are back [...] breath, inability to swallow. documented in this encounterPromedica Flower Hospital09-06-2022 History of Present illness Narrative* Little Hernandez APRN.CNP - 06/11/2022 1:38 PM EDT Subjective The history is provided by the patient. No foreign language professor was used. HPI Dk Vogt is a [...] have confirmed and edited as necessary, the [facility] Review of Systems Constitutional: Positive for chills, [...] in 24-48 hours with results, available on [facility] Diagnosis and treatment plan were discussed and questions were answered to the patient's satisfaction. Pt acknowledged understanding of concepts and follow up plan. Specific signs and symptoms that would indicate the need for higher level of care were discussed indetail warranting prompt ER evaluation. Little Hernandez APRN.STEPHEN [facility] No data available for this section [facility] Evaluation note* Diagnosis Fatigue, unspecified type documented in this encounter [facility] note* Diagnosis Elevated liver enzymes Nonspecific elevation of levels of transaminase or lactic acid dehydrogenase (LDH) documented in this encounter [facility] note* Diagnosis Exposure to COVID-19 virus- Primary Sore throat Acute pharyngitis Body aches Generalized pain Fever, unspecified fever cause documented in this encounter [facility] note* Diagnosis URI, acute- Primary Acute upper respiratory infections of unspecified site documented in this encounter [facility] note* Diagnosis Throat pain- Primary Viral URI with cough Acute upper respiratory infections of unspecified site documented in this encounter [facility]* Diagnosis Acute vaginitis- Primary Vaginitis and vulvovaginitis, unspecified documented in this encounter [facility]* Diagnosis Upper respiratory virus- Primary Acute upper respiratory infections of unspecified site documented in this encounter [facility]* Diagnosis Sore throat- Primary Acute pharyngitis documented in [facility] encounter [facility]* Diagnosis Acute pharyngitis, unspecified etiology- Primary [facility] Rash- Primary Rash and other nonspecific skin eruption documented in this encounter [facility]* Diagnosis Sore throat- Primary Acute pharyngitis Sore in nose Other diseases of nasal cavity and sinuses Fever, unspecified fever cause documented in this encounter [facility] No data available for this section [facility] Summary Purpose Family History No Family History Records FoundNo Family History Records FoundNo Family History Records FoundNo Family History Records FoundNo Family History Records FoundNo Family History Records Found No data available for this section No Family History Records FoundNo Family History Records FoundNo Family History Records Found Advance Directives No Advanced Directives Records FoundDocuments on File Type Date Recorded Patient Non Destructive Evaluation Specialist Expl anation Advance Directives and Living Will Power of Mincing Machine Operator Documents on File Type Date Recorded Patient Non Destructive Evaluation Specialist Expl anation Advance Directives and Living Will Power of Mincing Machine Operator Documents on File Type Date Recorded Patient Non Destructive Evaluation Specialist Expl anation Advance Directives and Living Will Power of Mincing Machine Operator DNR Documentation Instructions * Patient Instructions* Elo [...] Where can you learn more? Go to https://www.Embedster.net/patientEd Enter O319 in the search box to learn more about Learning About Benefits From Quitting Smoking. Current as of: April 08, 2019 Content Version: 12.3 0905-2120 [employer]. Care instructions adapted under license by your healthcare professional. If you have questions about a medical condition or this instruction, always ask your healthcare professional. [employer] disclaims any warranty or liability for your [...] a time each month to do a budg-zq-eobo breast self-exam. Other women like a less [...] Where can you learn more? Go to https://www.Embedster.net/patientEd Enter P148 in the search box to learn more about Breast Self-Exam: Care Instructions. Current as of: May 26, 2019 Content Version: 12.3 0368-2484 [employer]. Care instructions adapted under license by your healthcare professional. If you have questions about a medical condition or this instruction, always ask your healthcare professional. [employer] disclaims any warranty or liability for your [...] green vegetables such as broccoli and spinach. [place] vegetables such as carrots and sweet potatoes. [...] Where can you learn more? Go to https://www.Embedster.net/patientEd Enter Z059 in the search box to learn more about Food as Fuel: Care Instructions. Current as of: May 26, 2019 Content Version: 12.3 4201-0392 [employer]. Care instructions adapted under license by your healthcare professional. If you have questions about a medical condition or this instruction, always ask your healthcare professional. [employer] disclaims any warranty or liability for your use of this information. Suggestions that may help. -Elimination of caffeine -Evening primrose oil capsules 500 mg 4 x daily -Smoking cessation -Vit E 400-600 IU daily documented in this encounter* Patient Instructions* Evgeny([facility]Darío MA - 11/16/2019 1:45 PM EST Learning [...] Where can you learn more? Go to https://www.Embedster.net/patientEd Enter O319 in the search box to learn more about Learning About Benefits From Quitting Smoking. Current as of: April 08, 2019 Content Version: . [employer]. Care instructions adapted under license by your healthcare professional. If you have questions about a medical condition or this instruction, always ask your healthcare professional. [employer] disclaims any warranty or liability for your [...] green vegetables such as broccoli and spinach. [place] vegetables such as carrots and sweet potatoes. [...] Where can you learn more? Go to https://www.Embedster.net/patientEd Enter Z059 in the search box to learn more about Food as Fuel: Care Instructions. Current as of: May 26, 2019 Content Version: 12.3 7160-4439 [employer]. Care instructions adapted under license by your healthcare professional. If you have questions about a medical condition or this instruction, always ask your healthcare professional. [employer] disclaims any warranty or liability for your use of this information. documented in this encounter History of Present Illness * Julieta Joseph APRN WASTE PICKER - 11/15/2019 2:40 PM EST Subjective: Dk Vogt is a 29 y.o. female who presents for an annual exam. The patient has complaints today for right breast abnormality. States she thinks maybe she felt a lump. Denies FHx breast cancer. Also would like test today, which was negative. 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 Barth[place] and [place]'s glands non-palpable. Urethra: Without discharge. Vagina: [place], moist. No lesions or sores noted. Vaginal tone normal. Cervix: [place], no cervical discharge, redness, or sores. No cervical motion tenderness. Adnexa: Without masses or tenderness. Uterus: Normal size, palpable without masses or tenderness. 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 \ 1. Encounter [...] Benitez MA - 11/15/2019 2:40 PM KERWIN Woodyman is presenting for evaluation of Pt is [...] no depression. documented in this encounter* Paris Mccann, CHELE - 11/16/2019 1:45 PM EST Subjective: Dk Vogt is a 29 y.o. female. Patient's medications, allergies, past medical, surgical, social and family histories were reviewedand updated as appropriate. HPI Patient here today because she wants to stop smoking. Patient also complains of her ears clogged. States she cannot hear and finished an antibiotic yesterday. Was seen at ER in [place] for swellingin jaw, chest pain, and chills. Seen on 11/08. EKG NSR. Reports having pain in left neck/shoulder that resolved with antibiotic. Denies any further chest pain. Finished her antibiotic yesterday. Reports going to see an oral surgeon in [place] tomorrow for evaluation of dental abscess. Reports [...] hearing loss type Paris Mccann APRN [address] [place] [address] Status Reason Specialty Diagnoses / Procedures Referred By Contact Referred To Contact [facility] Diagnoses Chronic left shoulder pain Paris Mccann APRN [address] [place] [address] Health Concerns Infection Onset Date Last Indicated Resolved Time COVID-19 Rule-Out 06/11/2022 06/11/2022 Infection Onset Date Last Indicated Resolved Time COVID-19 Rule-Out 11/30/2022 11/30/2022 Additional Source Comments INFORMATION SOURCE (unrecogn ized section and content) DATE CREATED AUTHOR 04/01/2018 [facility] DATE CREATED AUTHOR AUTHOR'S ORGANIZ ATION 09/26/2018 [facility] DATE CREATED AUTHOR AUTHOR'S ORGANIZ ATION 07/20/2020 [facility] DATE CREATED AUTHOR AUTHOR'S ORGANIZ ATION 08/04/2020 [facility] DATE CREATED AUTHOR AUTHOR'S ORGANIZ ATION 01/01/2024 [facility] DATE CREATED AUTHOR AUTHOR'S ORGANIZ ATION 09/04/2024 [facility] DATE CREATED AUTHOR AUTHOR'S ORGANIZ ATION 03/27/2025 [facility] DATE CREATED AUTHOR AUTHOR'S ORGANIZ ATION 03/27/2025 [facility] DATE CREATED AUTHOR AUTHOR'S ORGANIZ ATION 04/03/2025 [facility] Reason for Visit (unrecogniz ed section and [...] Care Teams (unrecognized sec tion and content) Medical Office Coordinator Relationship Specialty Start Date End Date Paris Mccann, CHELE [address] [place] [address] PCP - General Family Medicine 11/02/19 Rachelle Miranda MA 01/05/21 Medical Office Coordinator Relationship Specialty Start Date End Date Sasha-Paris Robles APRN [address] [place] [address] PCP - General Family Medicine 11/02/19 Rachelle Miranda MA 01/05/21 Medical Office Coordinator Relationship Specialty [place] [address] [place] [address] PCP - General Internal Medicine 11/12/21 Source Comments (unrecognize d section and content) In the event this informatio n is protected by the Federal Confidentiality of Alcohol and Drug Abuse Patient Records regulations: The Federal rules restrict any use of the information to criminally investigate or prosecute any alcohol or drug abuse patient.[facility] HospitalIn the event this information is protected by the Federal Confidentiality of Alcohol and Drug Abuse Patient Records regulations: The Federal rules restrict any use of the information to criminally investigate or prosecute any alcohol or drug abuse patient.[facility] HospitalIn the event this information is protected by the Federal Confidentiality of Alcohol and Drug Abuse Patient Records regulations: The Federal rules restrict any use of the information to criminally investigate or prosecute any alcohol or drug abuse patient.[facility] HospitalIn the event this information is protected by the Federal Confidentiality of Alcohol and Drug Abuse Patient Records regulations: The Federal rules restrict any use of the information to criminally investigate or prosecute any alcohol or drug abuse patient.[facility] HospitalIn the event this information is protected by the Federal Confidentiality of Alcohol and Drug Abuse Patient Records regulations: The Federal rules restrict any use of the information to criminally investigate or prosecute any alcohol or drug abuse patient.[facility] HospitalIn the event this information is protected by the Federal Confidentiality of Alcohol and Drug Abuse Patient Records regulations: The Federal rules restrict any use of the information to criminally investigate or prosecute any alcohol or drug abuse patient.[facility] HospitalIn the event this information is protected by the Federal Confidentiality of Alcohol and Drug Abuse Patient Records regulations: The Federal rules restrict any use of the information to criminally investigate or prosecute any alcohol or drug abuse patient.[facility] HospitalIn the event this information is protected by the Federal Confidentiality of Alcohol and Drug Abuse Patient Records regulations: The Federal rules restrict any use of the information to criminally investigate or prosecute any alcohol or drug abuse patient.[facility] HospitalIn the event this information is protected by the Federal Confidentiality of Alcohol and Drug Abuse Patient Records regulations: The Federal rules restrict any use of the information to criminally investigate or prosecute any alcohol or drug abuse patient.[facility] the event this information is protected by the Federal Confidentiality of Alcohol and Drug Abuse Patient Records regulations: The Federal rules restrict any use of the information to criminally investigate or prosecute any alcohol or drug abuse patient.[facility] the event this information is protected by the Federal Confidentiality of Alcohol and Drug Abuse Patient Records regulations: The Federal rules restrict any use of the information to criminally investigate or prosecute any alcohol or drug abuse patient.[facility] FOR RECORDS PERTAINING TO PATIENTS WHO [...] BE BASED ON THE PRIMARY CLINICAL RECORDS. [facility]. provides no warranty or guarantee of the accuracy or completeness of information in this document.
[2025-04-03 23:33] LABS: Internal QC Validated? YES +Cl - CLEAR BKGD; Pregnancy, Serum, hCG Quali. NEGATIVE Negative
[2025-04-03 23:48] LABS: Alcohol, Blood (Medical)-Serum < 10.1 mg/dL (<=10.0)
[2025-04-03 23:54] LABS: Anion Gap 11 (5-15); BUN 13 mg/dL (4-19); BUN/Creat Ratio 14.2 RATIO (10-20); Calcium,Total 9.9 mg/dL (7.6-11.0); Carbon Dioxide 24.6 mmol/L (21.0-32.0); Chloride 103 mmol/L (98-108); Creatinine, Serum 0.89 mg/dL (0.70-1.20); EST Glomerular Filtration Rate 88 (>60); Glucose 84 mg/dL (70-99); Potassium 3.7 mmol/L (3.3-5.1); Sodium Level 139 mmol/L (133-145)
[2025-04-03 23:58] LABS: Amphetamine Urine NEGATIVE (<1000 ng/mL); Barbiturate Urine NEGATIVE (< 200 ng/mL); Benzodiazepine Urine NEGATIVE (< 200 ng/mL); Buprenorphine Urine NEGATIVE (< 200 ng/mL); Cocaine Urine NEGATIVE (< 300 ng/mL); Fentanyl, Urine NEGATIVE; Methadone Urine NEGATIVE (< 300 ng/mL); Opiates Urine NEGATIVE (< 300 ng/mL); Oxycodone, Urine NEGATIVE (< 100 ng/mL); PCP Urine NEGATIVE (< 25 ng/mL); THC Urine NEGATIVE (< 50 ng/mL)
[2025-04-04] VITALS: BP 108/63; PULSE 72; RESP 16; O2SAT 100
[2025-04-04 01:32] VITALS: BP 109/76; PULSE 80; RESP 18; TEMP 36.8; O2SAT 99
== END 2025-04-04 01:36 | disposition home or self-care (01) ==
PROVIDERS: Emergency Provider Emergency Medicine; PCP Internal Medicine; Visit Provider Emergency Medicine
DX: R20.2 Paresthesia of skin (principal); F31.9 Bipolar disorder, unspecified; F41.1 Generalized anxiety disorder; Z79.899 Other long term (current) drug therapy; F17.290 Nicotine dependence, other tobacco product, uncomplicated
CPT/HCPCS: 70450; 80048; 80307; 82077; 82962; 84703; 85025; 93005; 96360; 96361; 99283; A4216

== ENCOUNTER → 2025-04-05 | Outpatient (CLI) | payer MEDICARE, MEDICAID, SELFPAY ==
[2025-04-05 14:03] LABS: CPK Total, Creatine Kinase 75 U/L (24-195); Vitamin B12 1029 pg/mL (180-914)
[2025-04-05 14:09] LABS: CRP < 3.00 mg/L (0.0-3.0); Magnesium 2.2 mg/dL (1.5-2.2)
[2025-04-06 11:08] LABS: ANTINUCLEAR ANTIBODIES DIRECT Negative (Negative)
[2025-04-07 20:08] LABS: Albumin 4.1 g/dL (2.9-4.4); Gamma Globulin 0.9 g/dL (0.4-1.8); Immunoglobulin A 133 mg/dL (87-352); Immunoglobulin G 862 mg/dL (586-1602); Immunoglobulin M 175 mg/dL (26-217); PROEL- TOTAL PROTEIN 6.8 g/dL (6.0-8.5); Vitamin B1, Thiamine 148.7 nmol/L (66.5-200.0)
== END | disposition home or self-care (01) ==
LOC: MTLAB 11:03
PROVIDERS: PCP Internal Medicine
DX: R20.2 Paresthesia of skin (principal); R53.1 Weakness
CPT/HCPCS: 36415; 82550; 82607; 82784; 83735; 83883; 84165; 84425; 84443; 85652; 86038; 86140; 86225; 86334

== ENCOUNTER → 2025-04-11 | Outpatient (CLI) | payer MEDICARE, MEDICAID, SELFPAY ==
--- NOTE | 2025-04-11 15:54 | MRI_ITS ---
PROCEDURE: SPINE LUMBAR (ROUTINE) 04/11/2025 REASON FOR EXAM: PAIN, RADICULOPATHY TECHNIQUE: SPINE LUMBAR (ROUTINE) COMPARISON: Lumbar spine radiographs 02/22/2025. FINDINGS: 5 [id number] lumbar-type vertebrae are preserved in height, with anatomic alignment and normal marrow signal. Mild spondylotic changes mainly at L2-3 and L5-S1 with disc desiccation. Small anterior endplate osteophytes and hypertrophic facet arthropathy. Conus appears normal in signal and morphology, terminating at L1. Normal appearance of the cauda equina. No significant spinal canal narrowing is present. Note that axial sequences were not performed. Mild dorsal disc bulging at L2-3 and L5-S1 indenting the ventral thecal sac, with dorsal annular disc fissure at L5-S1. Neural foraminal narrowing is mild bilaterally at L5-S1, slightly greater on the right with contact on the exiting right L5 nerve, and the right S1 nerve in the subarticular zone. No neural foraminal narrowing elsewhere. MRI/Spine Lumbar (Routine) IMPRESSION: Mild spondylotic changes, primarily at L5-S1 with disc bulge and annular fissur e. No significant spinal canal narrowing. Mild neural foraminal narrowing at L5-S 1, more pronounced on the right with contact on the exiting right L5 and S1 nerves. Reading Location: [id number]
--- NOTE | 2025-04-11 15:54 | MRI_ITS ---
PROCEDURE: SPINE LUMBAR (ROUTINE) 04/11/2025 REASON FOR EXAM: PAIN, RADICULOPATHY TECHNIQUE: SPINE LUMBAR (ROUTINE) COMPARISON: Lumbar spine radiographs 02/22/2025. FINDINGS: 5 [id number] lumbar-type vertebrae are preserved in height, with anatomic alignment and normal marrow signal. Mild spondylotic changes mainly at L2-3 and L5-S1 with disc desiccation. Small anterior endplate osteophytes and hypertrophic facet arthropathy. Conus appears normal in signal and morphology, terminating at L1. Normal appearance of the cauda equina. No significant spinal canal narrowing is present. Note that axial sequences were not performed. Mild dorsal disc bulging at L2-3 and L5-S1 indenting the ventral thecal sac, with dorsal annular disc fissure at L5-S1. Neural foraminal narrowing is mild bilaterally at L5-S1, slightly greater on the right with contact on the exiting right L5 nerve, and the right S1 nerve in the subarticular zone. No neural foraminal narrowing elsewhere. MRI/Spine Lumbar (Routine) IMPRESSION: Mild spondylotic changes, primarily at L5-S1 with disc bulge and annular fissur e. No significant spinal canal narrowing. Mild neural foraminal narrowing at L5-S 1, more pronounced on the right with contact on the exiting right L5 and S1 nerves. Reading Location: [id number]
== END | disposition home or self-care (01) ==
LOC: MRI 15:43
PROVIDERS: PCP Internal Medicine; Referring Provider Psychiatry & Neurology Neurology; Visit Provider Psychiatry & Neurology Neurology
DX: M54.16 Radiculopathy, lumbar region (principal); R41.3 Other amnesia; R40.4 Transient alteration of awareness
CPT/HCPCS: 72148

== ENCOUNTER 2025-04-22 15:06 | Emergency (ER) | payer MEDICARE, MEDICAID, SELFPAY ==
[2025-04-22 15:07] VITALS: BP 127/84; PULSE 73; RESP 18; TEMP 36.9; O2SAT 100; BMI 24.0
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
[2025-04-22 16:02] VITALS: BP 104/82; PULSE 67; RESP 16; TEMP 36.6; O2SAT 99
== END 2025-04-22 16:02 | disposition home or self-care (01) ==
PROVIDERS: Emergency Provider Emergency Medicine; PCP Internal Medicine; Visit Provider Emergency Medicine
DX: S16.1XXA Strain of muscle, fascia and tendon at neck level, initial encounter (principal); S29.012A Strain of muscle and tendon of back wall of thorax, initial encounter; V49.40XA Driver injured in collision with unspecified motor vehicles in traffic accident, initial encounter; G89.29 Other chronic pain; F17.210 Nicotine dependence, cigarettes, uncomplicated
CPT/HCPCS: 72040; 72070; 99282

== ENCOUNTER → 2025-05-25 | Outpatient (CLI) | payer MEDICARE, MEDICAID, SELFPAY | END | disposition home or self-care (01) | LOC: OPMRI 12:35 | PROVIDERS: PCP Internal Medicine; Referring Provider Student in an Organized Health Care Education/Training Program; Visit Provider Student in an Organized Health Care Education/Training Program | DX: G95.9 Disease of spinal cord, unspecified (principal); M54.12 Radiculopathy, cervical region ==

== ENCOUNTER → 2025-07-07 | Outpatient (CLI) | payer MEDICARE, MEDICAID, SELFPAY ==
--- NOTE | 2025-07-07 10:19 | MRI_ITS ---
PROCEDURE: SPINE CERVICAL (ROUTINE) 07/07/2025 REASON FOR EXAM: PAIN, MYELOPATHY TECHNIQUE: Procedure Code: MRISPC Modality: MR Procedure: SPINE CERVICAL (ROUTINE) Multiplanar and multisequence images were obtained without IV contrast administration. COMPARISON: 22-Apr-2025 CR FINDINGS: Straightening of cervical curve denoting myospasm. Fractured C6 & C7 spinous processes tips with related marrow edema and surrounding soft tissue edema. The examined vertebral bodies appear intact. Normal craniometric measures of the craniovertebral junction Marginal lipping and Modic I changes of C5-C6 vertebral end plates. Variable degrees of reduced height and bright T2 signal of the intervertebral discs denoting their desiccation sparing C6-C7 level. C1-C2: Atlantodens interval is preserved. Odontoid process and atlantoaxial joint appear normal. C2-C3: There is no significant disc pathology. Normal morphology of the ligamentum flava. No arthropathy of the uncovertebral and zygapophyseal joints. No significant spinal canal stenosis noted. C3-C4: a 1 mm central focal posterior disc protrusion indenting the theca. No neuroforaminal stenosis. C4-C5: a 1.6 mm diffuse disc bulge with right foraminal protrusion indenting the theca and encroaching upon the related neural exit foramen inducing moderate right and mild left exiting nerve root compressions. C5-C6: a 3.5 mm diffuse disc bulge with left foraminal protrusion along with bilateral uncovertberal arthropathy indenting the theca and encroaching upon the related neural exit foramen inducing mild marked left and moderate to marked right exiting nerve roots compression. C6-C7: a 2.2 mm diffuse disc bulge with right foraminal protrusion indenting the theca and encroaching upon the related neural exit foramen inducing moderate right and mild left exiting nerve root compressions. C7-T1: There is no significant disc pathology. Normal morphology of the ligamentum flava. No arthropathy of the uncovertebral and zygapophyseal joints. No significant spinal canal stenosis noted. Normal appearance of the examined cervical cord and cranio-cervical junction. No marrow infiltrative lesions. Left submandibular region cystic lesion 2.4 cm in diameter. Advise sonography correlation. MRI/Spine Cervical (Routine) IMPRESSION: Straightening of cervical curve denoting myospasm. Fractured C6 & C7 spinous processes tips with related marrow edema and surround ing soft tissue edema. C3-C4: a 1 mm central focal posterior disc protrusion. No neuroforaminal stenos is. C4-C5: a 1.6 mm diffuse disc bulge with right foraminal protrusion inducing mod erate right and mild left exiting nerve root compressions. C5-C6: a 3.5 mm diffuse disc bulge with left foraminal protrusion along with bi lateral uncovertberal arthropathy inducing mild marked left and moderate to marked right exiting nerve roots compression. C6-C7: a 2.2 mm diffuse disc bulge with right foraminal protrusion inducing mod erate right and mild left exiting nerve root compressions. Reading [facility]
== END | disposition home or self-care (01) ==
LOC: OPMRI 10:18
PROVIDERS: PCP Internal Medicine; Referring Provider Student in an Organized Health Care Education/Training Program; Visit Provider Student in an Organized Health Care Education/Training Program
DX: G95.9 Disease of spinal cord, unspecified (principal); M54.12 Radiculopathy, cervical region
CPT/HCPCS: 72141